=== PATIENT | female | born 1940 | race Caucasian/White ===

== ENCOUNTER → 2016-09-15 | Outpatient (CLI) | payer OTHER, MEDICARE ==
[~2016-09-15] MED LIST: ACET-1256 PO; ASPEC81 PO; ASPI-461 PO; ATOR10TA88 PO; CALC500C3 PO; CALC500C50 PO; CALCCAP17 PO; CETI10TA84 PO; CHOL100027 PO; CLTP PO; CPRDOTS OT; CPRDXOT OT; CYCL10TA6 PO; EPP3 IM; EPP3/2 SQ; FLNIN NAE; FLUT0.15 NAE; FLV1 PO; FOLI800T PO; FOLIC ACID PO; HYDR-5688 PO; LACT3000 PO; LEFL10TA PO; LORA-741 PO; MELA3TAB12 PO; METH2.5T PO; METH500T3 PO; METHPOW7 PO; METO50TA7 PO; MOML PO; MULT-506 PO; MULT-513 PO; OMEG-21 PO; OMEG120013 PO; PANT1TAB48 PO; POLY1SOL6 OP; PRED-301 PO; RXC5 PO; SENN-61 PO; TRAM-10 PO
[2016-09-15 09:04] LABS: BASO % 0.2 %; BASO ABS # 0.01 K/uL (0-0.2); COMPLETE YES; EOS % 1.9 %; HEMATOCRIT 40.1 % (37-47); IG% 0.3 %; LYMPH % 29.6 %; LYMPH ABS # 1.72 K/uL (1.2-3.4); MEAN CELL VOLUME 93.5 fL (80-100); MEAN CORPUSCULAR HGB CONC 33.2 g/dl (32-36); MEAN PLATELET VOLUME 10.7 fL (7.4-10.4); MONO % 9.5 %; NEUT % 58.5 %; PLATELET COUNT 192 K/uL (130-400); RED BLOOD COUNT 4.29 M/uL (4.2-5.4); WHITE BLOOD COUNT 5.82 K/uL (4.8-10.8)
[2016-09-15 09:11] LABS: ALT/SGPT 24 U/L (12-78); CREATININE 0.78 mg/dl (0.60-1.20)
[2016-09-15 09:14] LABS: ALKALINE PHOSPHATASE 70 U/L (45-117); AST/SGOT 25 U/L (15-37)
== END | disposition home or self-care (01) ==
LOC: C.LABOAKS 08:50
PROVIDERS: ATTEND Internal Medicine Rheumatology
DX: Z79.899 Other long term (current) drug therapy (principal); Z51.81 Encounter for therapeutic drug level monitoring

== ENCOUNTER → 2016-11-10 | Outpatient (CLI) | payer OTHER, MEDICARE ==
[~2016-11-10] MED LIST changes: +ATOR10TA82 PO; -ATOR10TA88 PO
[2016-11-10 13:14] LABS: BASO % 0.2 %; BASO ABS # 0.01 K/uL (0-0.2); COMPLETE YES; EOS % 1.9 %; HEMATOCRIT 39.6 % (37-47); LYMPH % 39.7 %; LYMPH ABS # 1.67 K/uL (1.2-3.4); MEAN CELL VOLUME 94.3 fL (80-100); MEAN CORPUSCULAR HEMOGLOBIN 31.2 pg (25-34); MEAN CORPUSCULAR HGB CONC 33.1 g/dl (32-36); MEAN PLATELET VOLUME 11.1 fL (7.4-10.4); NEUT % 48.2 %; PLATELET COUNT 143 K/uL (130-400); WHITE BLOOD COUNT 4.21 K/uL (4.8-10.8)
[2016-11-10 13:28] LABS: ALT/SGPT 31 U/L (12-78); CREATININE 0.82 mg/dl (0.60-1.20)
[2016-11-10 13:31] LABS: ALKALINE PHOSPHATASE 69 U/L (45-117); AST/SGOT 34 U/L (15-37)
== END | disposition home or self-care (01) ==
LOC: C.LABOAKS 14:47
PROVIDERS: ATTEND Internal Medicine Rheumatology
DX: M06.9 Rheumatoid arthritis, unspecified (principal); M81.0 Age-related osteoporosis without current pathological fracture; Z79.899 Other long term (current) drug therapy

== ENCOUNTER → 2016-12-17 | Outpatient (CLI) | payer OTHER, MEDICARE ==
--- NOTE | 2016-12-17 11:56 | DIAGNOSTIC IMAGING REPORT ---
LEFT HIP UNILATERAL 2 VIEWS CLINICAL HISTORY: Left hip pain. Rheumatoid arthritis. COMPARISON: None. DISCUSSION: No fractures or dislocations are visualized. The joint space appears well-preserved for age. There are no erosive or destructive changes. There are vascular calcifications present. There are multiple sectional calcifications visualized in the soft tissues adjacent to the greater trochanter. IMPRESSION: No fractures or dislocations identified. No destructive lesions. The joint space appears well-preserved for age Electronically signed by: Abhay Mejia M.D. 12/17/2016 11:54 AM Dictated Date/Time: 12/17/2016 11:54 AM
== END | disposition home or self-care (01) ==
LOC: C.RAD1850 11:35
PROVIDERS: ATTEND Internal Medicine Rheumatology
DX: M06.9 Rheumatoid arthritis, unspecified (principal); M25.552 Pain in left hip; M81.0 Age-related osteoporosis without current pathological fracture; Z79.899 Other long term (current) drug therapy

== ENCOUNTER → 2017-01-05 | Outpatient (CLI) | payer OTHER, MEDICARE ==
[~2017-01-05] MED LIST changes: -ATOR10TA82 PO; +ATOR10TA88 PO
[2017-01-05 12:20] LABS: BASO % 0.2 %; BASO ABS # 0.01 K/uL (0-0.2); COMPLETE YES; IG% 0.2 %; LYMPH % 34.8 %; LYMPH ABS # 2.08 K/uL (1.2-3.4); MEAN CELL VOLUME 97.9 fL (80-100); MEAN CORPUSCULAR HEMOGLOBIN 31.2 pg (25-34); MEAN CORPUSCULAR HGB CONC 31.9 g/dl (32-36); MEAN PLATELET VOLUME 10.7 fL (7.4-10.4); MONO % 8.5 %; NEUT % 54.3 %; PLATELET COUNT 159 K/uL (130-400); RED BLOOD COUNT 4.29 M/uL (4.2-5.4); WHITE BLOOD COUNT 5.98 K/uL (4.8-10.8)
[2017-01-05 13:08] LABS: ALT/SGPT 28 U/L (12-78); CREATININE 0.82 mg/dl (0.60-1.20)
[2017-01-05 13:11] LABS: ALKALINE PHOSPHATASE 64 U/L (45-117); AST/SGOT 29 U/L (15-37)
--- NOTE | 2017-01-29 06:32 | CODING QUERY NO DIAGNOSIS ---
TREATMENT RENDERED WITHOUT A DIAGNOSIS To promote full compliance with coding requirements relating to patient care, physician participation is requested in all cases of loading supervisor uncertainty. Please assist us with providing a diagnosis/symptom for the test(s) below: A diagnosis/symptom was not documented on your Order. A valid diagnosis/symptom is required to bill all insurances. Please remember that we are unable to code a diagnosis of rule out, probable, possible, questionable, or suspected. Tests that require a diagnosis: ROUTINE VENIPUNCTURE CBC WITH AUTO DIFF LIVER PROFILE Provider Signature: Date: Thank you Diane [facility] [employer] Once completed, please kindly fax back to [phone] For questions please call [phone]
== END | disposition home or self-care (01) ==
LOC: C.LABOAKS 10:32
PROVIDERS: ATTEND Internal Medicine Rheumatology
DX: M06.9 Rheumatoid arthritis, unspecified (principal); Z79.899 Other long term (current) drug therapy

== ENCOUNTER 2017-02-27 06:37 | Emergency (ER) | payer OTHER, MEDICARE ==
[~2017-02-27] VITALS: Ht 157.5 cm; Wt 49.0 kg
[~2017-02-27 06:37] MED LIST changes: -ASPI-461 PO; -CALC500C50 PO; -CALCCAP17 PO; -CPRDOTS OT; -EPP3/2 SQ; -FLUT0.15 NAE; -FLV1 PO; -FOLI800T PO; -HYDR-5688 PO; -LEFL10TA PO; -METH500T3 PO; -MULT-513 PO; -OMEG120013 PO; -RXC5 PO; -SENN-61 PO; -TRAM-10 PO
[2017-02-27 06:41] VITALS: TEMP 36.5; Ht 157.5 cm; Wt 49.0 kg
[2017-02-27] MEDS ORDERED: OMEG120013 PO (07:06)
[2017-02-27] MEDS ORDERED: FLUT0.15 NAE (07:06)
[2017-02-27] MEDS ORDERED: MULT-513 PO (07:06)
[2017-02-27] MEDS ORDERED: CALCCAP17 PO (07:06)
[2017-02-27] MEDS ORDERED: FOLI800T PO (07:06)
[2017-02-27] MEDS ORDERED: CPRDOTS OT (07:06)
[2017-02-27] MEDS ORDERED: ASPI-461 PO (07:06)
[2017-02-27] MEDS ORDERED: EPP3/2 SQ (07:06)
[2017-02-27] MEDS ORDERED: ONDANSETRON INJ 2 MG/ML 2 ML VIAL IV STA (07:15)
[2017-02-27] MEDS ORDERED: FENTANYL CITRATE INJ 50 MCG/1 ML 2 ML VIAL IV STA (07:15)
[2017-02-27] MEDS ORDERED: SODIUM CHLORIDE 0.9% 1000ML 1,000 ML IV STA (07:15)
--- NOTE | 2017-02-27 07:21 | EMERGENCY ROOM VISIT NOTE ---
History Report prepared by Azam: Ayanna Fraser Under the Supervision of: Dr. Karla Zamarripa M.D. First contact with patient: 06:59 Chief Complaint: BACK PAIN Stated Complaint: BACK PAIN History of Present Illness The patient is a 76 year old female who presents to the Emergency Room with complaints of persistent, back pain that worsened over the past week. She currently rates her discomfort as an 8/10 in severity. The patient states that she is scheduled to have back surgery on March [address] Fernandes. She states that over the past week she had x-rays done at [facility] and at the hospital. The patient states that her pain has worsened and has noted difficulty ambulating due to the pain. She states that she was prescribed a muscle relaxer that has only slightly alleviated her discomfort. The patient states that she has additionally tried Tramadol, but states that her head felt funny after taking the medication. She additionally reports that for the past week she has noticed left lower quadrant abdominal pain that is intermittently sharp. The patient states that she has been constipated. She reports a history of diverticulitis. The patient denies any fever, vomiting, or diarrhea. She states that she has intermittently felt nauseous with her pain. Source of History: patient Onset: past week Position: back Symptom Intensity: 8/10 Timing: worsening, other (persistent) Associated Symptoms: + nausea, + abdominal pain, No fevers, No vomiting, No diarrhea Note: Associated Symptoms: constipation Review of Systems See HPI for pertinent positives & negatives. A total of 10 systems reviewed and were otherwise negative. Past Medical & Surgical Medical Problems: (1) Carpal Tunnel Syndrome (2) Hypertension Nos (3) IBS (irritable bowel syndrome) (4) Irritable Bowel Syndrome (5) Mitral valve prolapse (6) Osteoporosis Nos (7) PNA (pneumonia) (8) Sepsis Surgical Problems: (1) History of appendectomy Family History Diabetes mellitus Heart disease Hypertension Social History Smoking Status: Never Smoker Alcohol Use: none Drug Use: none Marital Status: Housing Status: lives with significant other Occupation Status: retired Current/Historical Medications Scheduled Aspirin (Aspirin), 81 MG PO DAILY Atorvastatin (Lipitor), 10 MG PO QPM Calcium Carbonate (Tums), 1 TAB PO PRN Calcium Carbonate-Vitamin D (Calcium/Vitamin D), 1 CAP PO BID Cetirizine (Zyrtec), 10 MG PO QPM Cholecalciferol (Vitamin D 1000 Unit), 1,000 INTER.UNIT PO QAM Ciprofloxacin/Dexamethasone (Ciprodex 0.3-0.1 %), 4 DROPS OT BID Cyclobenzaprine Hcl (Flexeril), 10 MG PO TID Fluticasone Propionate (Nasal) (Flonase Allergy Relief), 2 SPRAYS SAKINA DAILY Folic Acid (Folic Acid), 1,600 MCG PO 6XWK Magnesium Hydroxide (Milk Of Magnesia), 30 ML PO PRN Melatonin-Pyridoxine (Melatonin), 2 TABLET PO HS Methotrexate (Methotrexate), 6 TABLETS PO WK Methylcellulose (Laxative) (Citrucel Fiber Laxative), 1 DOSE PO DAILY Metoprolol Succ (Toprol Xl) (Toprol-Xl), 100 MG PO DAILY Multivitamins/Minerals (Mvi With Minerals), 1 TAB PO DAILY [place]-3 Fatty Acids (Fish Oil), 1,200 MG PO DAILY Pantoprazole (Protonix), 40 MG PO QAM Polyethylene Glycol-Propylene (Systane Ultra), 1 DROPS OP QAM Prednisone (Prednisone), 5 MG PO QAM Scheduled PRN Acetaminophen (Tylenol), 1,000 MG PO TID PRN for Pain Epinephrine (Epipen 2-Juliocesar), SQ for ALLERGIC REACTION Hydrocodone/Acetaminophen 5MG/325MG ([place] 5MG/325MG), 0.5-1 TABLET PO Q6 PRN for Pain Lorazepam (Ativan), 0.5 MG PO TID PRN for Anxiety/Agitation Senna (Senokot), 1 TAB PO BID PRN for Constipation Allergies Coded Allergies: BEE STING (Verified Allergy, Intermediate, BEE/WASP-NAUSEA AND DIZZINESS, 02/27/17) Penicillins (Verified Allergy, Intermediate, RASH (PER PT, WAS A LONG TIME AGO)AMOXICILLIN AND PCN, 02/27/17) Esomeprazole (Verified Allergy, Mild, NAUSEA VOMITING, 02/27/17) Antipyrine (Verified Allergy, Unknown, RASH AND BLISTERS, 02/27/17) Benzocaine (Verified Allergy, Unknown, UNKNOWN, 02/27/17) Hydroxychloroquine (Verified Allergy, Unknown, UNKNOWN, 02/27/17) Misoprostol (Verified Allergy, Unknown, UNKNOWN, 02/27/17) Phenylephrine (Verified Allergy, Unknown, UNKNOWN, 02/27/17) Pseudoephedrine (Verified Allergy, Unknown, UNKNOWN, 02/27/17) Serotonin Reuptake Inhibitors (Verified Allergy, Unknown, UNKNOWN, 02/27/17 ) Sulfa Antibiotics (Verified Allergy, Unknown, UNKNOWN, 02/27/17) Tramadol (Verified Allergy, Unknown, TONGUE TINGLING, HEAD FELT LIKE IT WOULD EXPLODE, 02/27/17) Citalopram (Verified Adverse Reaction, Mild, GI UPSET, 02/27/17) Clarithromycin (Verified Adverse Reaction, Mild, GI UPSET, 02/27/17) Physical Exam Vital Signs Date Time Temp Pulse Resp B/P (MAP) Pulse Ox O2 Delivery O2 Flow Rate FiO2 02/27/17 10:53 75 18 178/74 97 02/27/17 10:22 78 18 189/80 97 Room Air 02/27/17 08:40 78 18 131/77 99 Room Air 02/27/17 06:41 36.5 82 18 141/76 99 Room Air Physical Exam Vital signs reviewed. General: Well-appearing female, in no significant distress. HEENT: No scleral icterus, PERRLA, neck supple. Atraumatic. Cardiovascular: Systolic ejection murmur. Regular rate and rhythm. Pulmonary: Clear to auscultation bilaterally, normal work of breathing. Abdomen: Soft, mild tenderness to the left lower quadrant, nondistended, positive bowel sounds. Musculoskeletal: Atraumatic, no peripheral edema. No CVA tenderness. Neurologic: Patient awake alert and oriented x 3, full strength in all 4 extremities. Cranial nerves 2 through 12 grossly intact. Skin: Warm, dry, no rash Medical Decision & Procedures ER Provider Diagnostic Interpretation: CT results as stated below per my review and radiologist interpretation: CT OF THE ABDOMEN AND PELVIS WITH CONTRAST CLINICAL HISTORY: Left lower quadrant abdominal pain. COMPARISON STUDY: CT of the abdomen and pelvis October 09, 2013. TECHNIQUE: Following IV administration of 93 mL of Optiray-320, axial images of the abdomen and pelvis were obtained from the lung bases to the proximal femurs. Images were reviewed in the axial, sagittal, and coronal planes. IV contrast was administered without complication. A dose lowering technique was utilized adhering to the principles of ALARA. CT DOSE: 246.21 mGycm FINDINGS: Pectus excavatum deformity is noted. Heart is mildly enlarged. The liver, spleen, adrenal glands, kidneys and pancreas are unremarkable. There is no biliary or pancreatic ductal dilatation. There is no evidence for a bowel obstruction. There is a large amount of stool within the colon and rectum. A small fat-containing umbilical hernia is present. There is sigmoid diverticulosis without evidence for acute diverticulitis. There is prominent enhancement and bulbous enlargement of the uterine fundus. The appendix is not visualized. There is no ascites, lymphadenopathy or abscess. Note is made of moderate levoscoliosis of the lumbar spine. There is a fracture of the superior endplate of L4 with mild loss of vertebral body height and 4 mm of retropulsion. This fracture is likely acute to subacute and extends to the anterior aspect of the left pedicle of L4. Note is made of mild prevertebral infiltration. There is a Schmorl's node involving the left aspect of the superior endplate of L5. This is probably subacute to chronic. Multilevel degenerative disc disease and facet arthrosis is present. Central canal and neural foramen are suboptimally assessed by CT. IMPRESSION: 1. Large amount of stool within the colon and rectum. 2. Sigmoid diverticulosis without evidence for acute diverticulitis. 3. Acute to subacute compression fracture of the superior endplate of L4 which extends to the anterior aspect of the left L4 pedicle. Mild loss of vertebral body height and 4 mm of retropulsion. Moderate levoscoliosis of the lumbar spine with moderate to severe multilevel degenerative disc disease and facet arthrosis which is suboptimally assessed by CT. 4. Prominent enhancement with bulbous enlargement of the uterine fundus. While nonspecific, this may reflect fibroids. A follow-up nonemergent pelvic ultrasound could be obtained. Electronically signed by: Francois Robbins M.D. 02/27/2017 8:51 AM Dictated Date/Time: 02/27/2017 8:33 AM Laboratory Results 02/27/17 07:30 Red Blood Count 4.19, Mean Corpuscular Volume 96.7, Mean Corpuscular Hemoglobin 32.2, Mean Corpuscular Hemoglobin Concent 33.3, Mean Platelet Volume 9.9, Neutrophils (%) (Auto) 74.8, Lymphocytes (%) (Auto) 11.9, Monocytes (%) (Auto) 12.1, Eosinophils (%) (Auto) 0.9, Basophils (%) (Auto) 0.1, Neutrophils # (Auto ) 6.42, Lymphocytes # (Auto) 1.02, Monocytes # (Auto) 1.04, Eosinophils # (Auto ) 0.08, Basophils # (Auto) 0.01 02/27/17 07:30 Test 02/27/17 07:30 02/27/17 07:50 White Blood Count 8.59 K/uL (4.8-10.8) Red Blood Count 4.19 M/uL (4.2-5.4) Hemoglobin 13.5 g/dL (12.0-16.0) Hematocrit 40.5 % (37-47) Mean Corpuscular Volume 96.7 fL (80-100) Mean Corpuscular Hemoglobin 32.2 pg (25-34) Mean Corpuscular Hemoglobin Concent 33.3 g/dl (32-36) Platelet Count 177 K/uL (130-400) Mean Platelet Volume 9.9 fL (7.4-10.4) Neutrophils (%) (Auto) 74.8 % Lymphocytes (%) (Auto) 11.9 % Monocytes (%) (Auto) 12.1 % Eosinophils (%) (Auto) 0.9 % Basophils (%) (Auto) 0.1 % Neutrophils # (Auto) 6.42 K/uL (1.4-6.5) Lymphocytes # (Auto) 1.02 K/uL (1.2-3.4) Monocytes # (Auto) 1.04 K/uL (0.11-0.59) Eosinophils # (Auto) 0.08 K/uL (0-0.5) Basophils # (Auto) 0.01 K/uL (0-0.2) RDW Standard Deviation 48.9 fL (36.4-46.3) RDW Coefficient of Variation 14.0 % (11.5-14.5) Immature Granulocyte % (Auto) 0.2 % Immature Granulocyte # (Auto) 0.02 K/uL (0.00-0.02) Anion Gap 4.0 mmol/L (3-11) Est Creatinine Clear Calc Drug Dose 51.5 ml/min Estimated GFR () 93.4 Estimated GFR (Non- 80.6 BUN/Creatinine Ratio 13.4 (10-20) Calcium Level 9.2 mg/dl (8.5-10.1) Magnesium Level 2.3 mg/dl (1.8-2.4) Total Bilirubin 0.6 mg/dl (0.2-1) Direct Bilirubin 0.2 mg/dl (0-0.2) Aspartate Amino Transf (AST/SGOT) 18 U/L (15-37) Alanine Aminotransferase (ALT/SGPT) 25 U/L (12-78) Alkaline Phosphatase 86 U/L (45-117) Total Protein 6.5 gm/dl (6.4-8.2) Albumin 3.5 gm/dl (3.4-5.0) Lipase 173 U/L (73-393) Urine Color YELLOW Urine Appearance CLEAR (CLEAR) Urine pH 8.0 (4.5-7.5) Urine Specific [place] 1.016 (1.000-1.030) Urine Protein NEG (NEG) Urine Glucose (UA) NEG (NEG) Urine Ketones NEG (NEG) Urine Occult Blood TRACE (NEG) Urine Nitrite NEG (NEG) Urine Bilirubin NEG (NEG) Urine Urobilinogen NEG (NEG) Urine Leukocyte Esterase SMALL (NEG) Urine WBC (Auto) 1-5 /hpf (0-5) Urine RBC (Auto) 0-4 /hpf (0-4) Urine Hyaline Casts (Auto) 1-5 /lpf (0-5) Urine Epithelial Cells (Auto) 5-10 /lpf (0-5) Urine Bacteria (Auto) NEG (NEG) Laboratory results per my review. Medications Administered Medications (Trade) Dose Ordered Sig/Taylor Route Start Time Stop Time Status Last Admin Dose Admin Sodium Chloride 1,000 ml @ 125 mls/hr Q8H STAT IV 02/27/17 07:15 02/27/17 11:18 DC 02/27/17 07:43 125 MLS/HR Fentanyl Citrate (Fentanyl Inj) 25 mcg NOW STAT IV 02/27/17 07:15 02/27/17 07:21 DC 02/27/17 07:41 25 MCG Ondansetron HCl (Zofran Inj) 4 mg NOW STAT IV 02/27/17 07:15 02/27/17 07:21 DC 02/27/17 07:40 4 MG Miscellaneous (Soap Suds Enema) 1 ea NOW STAT HI 02/27/17 08:51 02/27/17 08:52 DC 02/27/17 09:30 1 ED Course 0713: Past medical records reviewed. The patient was evaluated in room B10. A complete history and physical examination was performed. 0715: Ordered Zofran Inj 4 mg IV, Fentanyl Inj 25 mcg IV, Sodium Chloride 1000 ml @ 125 mls/hr IV. 0851: Ordered Soap Suds Enema 1 ea HI. 0912: I reevaluated the patient and she is resting comfortably. I discussed the exam findings with her. She is going to have an enema. 0951: I reevaluated the patient and nursing staff states that they disimpacted the patient. 1025: Per nursing staff the patient had a large bowel movement and is feeling better. She is in agreement with the treatment plan and is ready for discharge. Medical Decision The patient is a 76 year old female who presents to the ED with complaints of back pain. Differentials include diverticulitis, lumbar radiculopathy, kidney stone, UTI, pyelonephritis, muscular strain. This patient was evaluated and appeared to be in no significant distress. Physical examination reveals no acute peritonitis. IV access was obtained and laboratory work was drawn. The patient was hydrated with normal saline solution , given IV fentanyl and Zofran. CT scan abdomen and pelvis was performed and reveals a new lumbar compression fracture. Patient has evidence of significant fecal retention. Soapsuds enema was administered with good result. The patient was given a prescription for Percocet as she says her Ultram is not working. She may use one half to one tablet every 6 hours as needed. She was also given a prescription for senna for constipation. The patient will follow- up with her primary care provider this week for reevaluation and return to the ER for worsening of symptoms or any medical concerns. Medication Reconcilliation Current Medication List: was personally reviewed by me Blood Pressure Screening Patient's blood pressure: Elevated blood pressure Blood pressure disposition: Elevated BP felt to be situational, Did not require urgent referral Impression Primary Impression: Constipation Additional Impression: Lumbar compression fracture Scribe Attestation The scribe's documentation has been prepared under my direction and personally reviewed by me in its entirety. I confirm that the note above accurately reflects all work, treatment, procedures, and medical decision making performed by me. Departure Information Dispostion Home / Self-Care Prescriptions Hydrocodone/Acetaminophen 5MG/325MG ([place] 5MG/325MG) Tab 0.5-1 TABLET PO Q6 Y for Pain, #20 TAB Prov: Karla Zamarripa M.D. 02/27/17 Senna (Senokot) 8.6 Mg Tab 1 TAB PO BID Y for Constipation, #60 TAB Prov: Karla Zamarripa M.D. 02/27/17 Referrals Aaron Wolf M.D. (PCP) Forms HOME CARE DOCUMENTATION FORM, IMPORTANT VISIT INFORMATION Patient Instructions My [facility] Additional Instructions Diagnosis: Lumbar compression fracture, constipation You have a reasonably new compression fracture of the L4 vertebrae. Please contact Dr. Fernandes's office for reevaluation. [place] one half to one tablet every 6 hours as needed for severe pain. Do not drive or take Tylenol with this medication. Senokot 1 tab twice daily. Follow-up with your physician this week. Return to the ER for worsening of symptoms or any medical concerns. Problem Qualifiers
[2017-02-27] MEDS ORDERED: OPTIRAY 320 IV PRN (07:30)
[2017-02-27 07:41] LABS: BASO % 0.1 %; BASO ABS # 0.01 K/uL (0-0.2); COMPLETE YES; EOS % 0.9 %; HEMATOCRIT 40.5 % (37-47); IG% 0.2 %; LYMPH % 11.9 %; LYMPH ABS # 1.02 K/uL (1.2-3.4); MEAN CELL VOLUME 96.7 fL (80-100); MEAN CORPUSCULAR HEMOGLOBIN 32.2 pg (25-34); MEAN CORPUSCULAR HGB CONC 33.3 g/dl (32-36); MEAN PLATELET VOLUME 9.9 fL (7.4-10.4); MONO % 12.1 %; NEUT % 74.8 %; PLATELET COUNT 177 K/uL (130-400); RED BLOOD COUNT 4.19 M/uL (4.2-5.4); WHITE BLOOD COUNT 8.59 K/uL (4.8-10.8)
[2017-02-27 07:58] LABS: BUN/CREATININE RATIO 13.4 (10-20); CALCIUM 9.2 mg/dl (8.5-10.1); CREATININE 0.73 mg/dl (0.60-1.20); MAGNESIUM 2.3 mg/dl (1.8-2.4); POTASSIUM 3.8 mmol/L (3.5-5.1)
[2017-02-27 08:02] LABS: URINE APPEARANCE CLEAR (CLEAR); URINE BILIRUBIN NEG (NEG); URINE COLOR YELLOW; URINE NITRITE NEG (NEG); URINE SPECIFIC GRAVITY 1.016 (1.000-1.030); UROBILINOGEN NEG (NEG); ZZUR CULT IF INDIC CLEAN CATCH NO
[2017-02-27 08:15] LABS: MANUAL MICROSCOPIC REQUIRED? NO; REVIEW REQ? NO
[2017-02-27] MEDS ORDERED: SOAP SUDS ENEMA PR STA (08:51)
--- NOTE | 2017-02-27 08:52 | DIAGNOSTIC IMAGING REPORT ---
CT OF THE ABDOMEN AND PELVIS WITH CONTRAST CLINICAL HISTORY: Left lower quadrant abdominal pain. COMPARISON STUDY: CT of the abdomen and pelvis October 09, 2013. TECHNIQUE: Following IV administration of 93 mL of Optiray-320, axial images of the abdomen and pelvis were obtained from the lung bases to the proximal femurs. Images were reviewed in the axial, sagittal, and coronal planes. IV contrast was administered without complication. A dose lowering technique was utilized adhering to the principles of ALARA. CT DOSE: 246.21 mGycm FINDINGS: Pectus excavatum deformity is noted. Heart is mildly enlarged. The liver, spleen, adrenal glands, kidneys and pancreas are unremarkable. There is no biliary or pancreatic ductal dilatation. There is no evidence for a bowel obstruction. There is a large amount of stool within the colon and rectum. A small fat-containing umbilical hernia is present. There is sigmoid diverticulosis without evidence for acute diverticulitis. There is prominent enhancement and bulbous enlargement of the uterine fundus. The appendix is not visualized. There is no ascites, lymphadenopathy or abscess. Note is made of moderate levoscoliosis of the lumbar spine. There is a fracture of the superior endplate of L4 with mild loss of vertebral body height and 4 mm of retropulsion. This fracture is likely acute to subacute and extends to the anterior aspect of the left pedicle of L4. Note is made of mild prevertebral infiltration. There is a Schmorl's node involving the left aspect of the superior endplate of L5. This is probably subacute to chronic. Multilevel degenerative disc disease and facet arthrosis is present. Central canal and neural foramen are suboptimally assessed by CT. IMPRESSION: 1. Large amount of stool within the colon and rectum. 2. Sigmoid diverticulosis without evidence for acute diverticulitis. 3. Acute to subacute compression fracture of the superior endplate of L4 which extends to the anterior aspect of the left L4 pedicle. Mild loss of vertebral body height and 4 mm of retropulsion. Moderate levoscoliosis of the lumbar spine with moderate to severe multilevel degenerative disc disease and facet arthrosis which is suboptimally assessed by CT. 4. Prominent enhancement with bulbous enlargement of the uterine fundus. While nonspecific, this may reflect fibroids. A follow-up nonemergent pelvic ultrasound could be obtained. Electronically signed by: Francois Robbins M.D. 02/27/2017 8:51 AM Dictated Date/Time: 02/27/2017 8:33 AM
[2017-02-27] MEDS ORDERED: SENN-61 PO (10:33)
[2017-02-27] MEDS ORDERED: HYDR-5688 PO (10:34)
[2017-02-27 10:53] VITALS: BP 178/74; PULSE 75; O2SAT 97
[2017-03-18] MEDS ORDERED: TRAM-10 PO (17:14)
[2017-03-18] MEDS ORDERED: SENN-61 PO (17:14)
[2017-03-31] MEDS ORDERED: RXC5 PO (07:37)
== END 2017-02-27 10:54 | disposition home or self-care (01) ==
LOC: C.EDB 06:39
DX: K59.00 Constipation, unspecified (principal); S32.000A Wedge compression fracture of unspecified lumbar vertebra, initial encounter for closed fracture; K58.9 Irritable bowel syndrome, unspecified; I10 Essential (primary) hypertension; Z87.01 Personal history of pneumonia (recurrent); Z83.3 Family history of diabetes mellitus; Z82.49 Family history of ischemic heart disease and other diseases of the circulatory system; Z79.82 Long term (current) use of aspirin; Z79.899 Other long term (current) drug therapy

== ENCOUNTER 2017-03-05 07:54 | Emergency (ER) | payer OTHER, MEDICARE ==
[~2017-03-05 07:54] MED LIST changes: -ASPEC81 PO; +ASPI-461 PO; +CALCCAP17 PO; -CLTP PO; +CPRDOTS OT; -CPRDXOT OT; -EPP3 IM; +EPP3/2 SQ; -FLNIN NAE; +FLUT0.15 NAE; +FOLI800T PO; -FOLIC ACID PO; +HYDR-5688 PO; -LACT3000 PO; -MULT-506 PO; +MULT-513 PO; -OMEG-21 PO; +OMEG120013 PO; +SENN-61 PO
[2017-03-05 07:58] VITALS: TEMP 36.8
[2017-03-05] MEDS ORDERED: SOAP SUDS ENEMA PR STA ×2 (08:16→10:41)
--- NOTE | 2017-03-05 10:31 | DIAGNOSTIC IMAGING REPORT ---
TERENCE CLINICAL HISTORY: 76 years-old Female presenting with constipation. TECHNIQUE: Single supine view of the abdomen was obtained. COMPARISON: 03/05/2017. FINDINGS: Dense stool noted in the left colon. Moderate stool burden noted also in the right colon. Nonobstructive bowel gas pattern. No gross free intraperitoneal gas. S-shaped scoliotic curvature of the thoracolumbar spine. Multiple calcifications projecting over the gluteus muscles, possibly injection granulomas. IMPRESSION: 1. Moderate stool burden, which could be compatible with constipation. No obstruction. Electronically signed by: Aaron Rainey M.D. 03/05/2017 10:30 AM Dictated Date/Time: 03/05/2017 10:23 AM
--- NOTE | 2017-03-05 11:22 | EMERGENCY ROOM VISIT NOTE ---
History First contact with patient: 08:07 Chief Complaint: CONSTIPATION Stated Complaint: LEFT LEG PAIN, CONSTIPATION History of Present Illness The patient is a 76 year old female who presents to the Emergency Room with complaints of constipation. The patient was seen here in the emergency room on Wednesday for the same symptoms. The patient was given a soapsuds enema with relief. She was instructed to take senna as directed. The patient has been compliant states she has not had a bowel movement since she left ER on Wednesday. The patient is currently on [place] for back pain and is having surgery on her back by Dr. Fernandes later this month. The patient states that she feels slightly nauseated but denies any vomiting. The patient denies any abdominal pain. Review of Systems 10 system review was performed and was negative unless stated otherwise history of present illness. Past Medical/Surgical History Medical Problems: (1) Carpal Tunnel Syndrome (2) Hypertension Nos (3) IBS (irritable bowel syndrome) (4) Irritable Bowel Syndrome (5) Mitral valve prolapse (6) Osteoporosis Nos (7) PNA (pneumonia) (8) Sepsis Surgical Problems: (1) History of appendectomy Family History Diabetes mellitus Heart disease Hypertension Social History Smoking Status: Never Smoker Alcohol Use: none Drug Use: none Marital Status: Housing Status: lives with significant other Occupation Status: retired Current/Historical Medications Scheduled Aspirin (Aspirin), 81 MG PO DAILY Atorvastatin (Lipitor), 10 MG PO QPM Calcium Carbonate-Vitamin D (Calcium/Vitamin D), 1 CAP PO BID Cetirizine (Zyrtec), 10 MG PO QPM Cholecalciferol (Vitamin D 1000 Unit), 1,000 INTER.UNIT PO QAM Cyclobenzaprine Hcl (Flexeril), 10 MG PO TID Fluticasone Propionate (Nasal) (Flonase Allergy Relief), 2 SPRAYS SAKINA DAILY Folic Acid (Folic Acid), 1,600 MCG PO 6XWK Melatonin-Pyridoxine (Melatonin), 1.5 TABLET PO HS Methotrexate (Methotrexate), 6 TABLETS PO WK Methylcellulose (Laxative) (Citrucel Fiber Laxative), 1 DOSE PO DAILY Metoprolol Succ (Toprol Xl) (Toprol-Xl), 100 MG PO DAILY Multivitamins/Minerals (Mvi With Minerals), 1 TAB PO DAILY [place]-3 Fatty Acids (Fish Oil), 1,200 MG PO DAILY Pantoprazole (Protonix), 40 MG PO QAM Polyethylene Glycol-Propylene (Systane Ultra), 1 DROPS OP QAM Prednisone (Prednisone), 5 MG PO QAM Scheduled PRN Acetaminophen (Tylenol), 1,000 MG PO TID PRN for Pain Epinephrine (Epipen 2-Juliocesar), SQ for ALLERGIC REACTION Hydrocodone/Acetaminophen 5MG/325MG ([place] 5MG/325MG), 0.5-1 TABLET PO Q6 PRN for Pain Lorazepam (Ativan), 0.5 MG PO TID PRN for Anxiety/Agitation Senna (Senokot), 1 TAB PO BID PRN for Constipation Physical Exam Vital Signs Date Time Temp Pulse Resp B/P (MAP) Pulse Ox O2 Delivery O2 Flow Rate FiO2 03/05/17 11:04 78 159/84 97 Room Air 03/05/17 07:58 36.8 93 20 106/96 95 Room Air Physical Exam GENERAL: 76-year-old white female appears in no acute distress. MENTAL Status: Alert and oriented 3. MOUTH: Mucosa is moist. NECK: Supple, no lymphadenopathy noted. No carotid bruits noted. LUNGS: Clear auscultation without wheezes rales or rhonchi. CARDIAC: Regular rate and rhythm without murmur. Pulses is full and equal throughout. BACK: No CVA tenderness noted. ABDOMEN: Positive bowel sounds all 4 quadrants. Soft, nontender to palpation without organomegaly or masses. RECTAL: Anal sphincter tone intact. Large amount of hard marblelike stool within the rectum. Medical Decision & Procedures ER Provider Diagnostic Interpretation: KUB CLINICAL HISTORY: 76 years-old Female presenting with constipation. TECHNIQUE: Single supine view of the abdomen was obtained. COMPARISON: 03/05/2017. FINDINGS: Dense stool noted in the left colon. Moderate stool burden noted also in the right colon. Nonobstructive bowel gas pattern. No gross free intraperitoneal gas. S-shaped scoliotic curvature of the thoracolumbar spine. Multiple calcifications projecting over the gluteus muscles, possibly injection granulomas. IMPRESSION: 1. Moderate stool burden, which could be compatible with constipation. No obstruction. Electronically signed by: Aaron Rainey M.D. 03/05/2017 10:30 AM Dictated Date/Time: 03/05/2017 10:23 AM Medications Administered Medications (Trade) Dose Ordered Sig/Taylor Route Start Time Stop Time Status Last Admin Dose Admin Miscellaneous (Soap Suds Enema) 1 ea NOW STAT NV 03/05/17 08:16 03/05/17 08:18 DC 03/05/17 08:16 1 EA Miscellaneous (Soap Suds Enema) 1 ea NOW STAT NV 03/05/17 10:41 03/05/17 10:43 DC 03/05/17 10:41 1 EA ED Course The patient was evaluated. The patient's EMR medication list were reviewed. While performing the rectal exam I tried to 'mash" the stools so that they would be easier to evacuate. The patient was given a soapsuds enema. The patient was having difficulty moving her bowels and therefore Dr. Zamarripa remove some of the hard stools from the rectum. The patient had passed a small amount of stool. A KUB was ordered and she still had a moderate amount of stool in the right and the left colon. A second soapsuds enema was attempted but the patient did not tolerate it well. She only had a very small bowel movement. The patient was apparently evaluated by Dr. Zamarripa who agree with treatment plan. The patient was discharged home in stable condition. Medical Decision Differential diagnosis include constipation, fecal impaction, bowel obstruction or Medication Reconcilliation Current Medication List: was personally reviewed by me Blood Pressure Screening Patient's blood pressure: Elevated blood pressure Blood pressure disposition: Elevated BP felt to be situational Impression Primary Impression: Constipation Additional Impression: Fecal impaction in rectum Departure Information Dispostion Home / Self-Care Condition GOOD Referrals Aaron Wolf M.D. (PCP) Forms HOME CARE DOCUMENTATION FORM, IMPORTANT VISIT INFORMATION Patient Instructions Constipation, My [facility] Additional Instructions Follow high-fiber diet. Avoid dairy products. Recommend taking milk of magnesia as directed on the label. Continue the Senokot. If symptoms persist, return to ER. Problem Qualifiers Primary Impression: Constipation Constipation type: drug induced constipation Qualified Codes: K59.03 - Drug induced constipation
[2017-03-05 11:56] VITALS: BP 142/72; PULSE 62; O2SAT 97
--- NOTE | 2017-03-05 16:09 | EMERGENCY ROOM VISIT NOTE ---
ED Visit Note First contact with patient: 08:07 I have personally seen and evaluated the patient with the PA. I agree with the diagnosis and management decisions and have been personally involved in the case. Upon my evaluation, the patient was having only minimal success with the enema. Rectal exam was performed and a large amount of small pieces of stool were removed. The patient was eventually discharged to care of her . Please see Paola Dorsey PA-C's notes for further details of the history, physical and visit.
[2017-03-18] MEDS ORDERED: SENN-61 PO (17:14)
[2017-03-18] MEDS ORDERED: TRAM-10 PO (17:14)
[2017-03-31] MEDS ORDERED: RXC5 PO (07:37)
== END 2017-03-05 11:57 | disposition home or self-care (01) ==
LOC: C.EDB 07:55
DX: K59.03 Drug induced constipation (principal); K56.41 Fecal impaction; G56.00 Carpal tunnel syndrome, unspecified upper limb; I10 Essential (primary) hypertension; K58.9 Irritable bowel syndrome, unspecified; M81.0 Age-related osteoporosis without current pathological fracture; Z83.3 Family history of diabetes mellitus; Z82.49 Family history of ischemic heart disease and other diseases of the circulatory system; Z79.82 Long term (current) use of aspirin

== ENCOUNTER 2017-03-23 07:34 | Inpatient (IN) | payer OTHER, MEDICARE ==
[2017-02-24 10:53] VITALS: BMI 19.0
--- NOTE | 2017-02-24 11:39 | PAT Medication Instructions ---
Service Date Feb 24, 2017. Current Home Medication List Acetaminophen (Tylenol), 1,000 MG PO TID PRN for Pain Aspirin Enteric Coated (Ecotrin Or Generic *), 81 MG PO QAM Atorvastatin (Lipitor), 10 MG PO QPM Calcium Carbonate (Tums), 1 TAB PO PRN Calcium/Vitamin D (Caltrate 600 Plus *), 1 TAB PO BID Cetirizine (Zyrtec), 10 MG PO QPM Cholecalciferol (Vitamin D 1000 Unit), 1,000 INTER.UNIT PO QAM Ciprofloxacin/Dexamethasone Otic (Ciprodex Otic *), 4 DROPS OT PRN Cyclobenzaprine Hcl (Flexeril), 10 MG PO TID Epinephrine (Epipen *), 0.3 MG IM UD Fluticasone Propionate (Flonase Nasal [place] *), 2 SPRAYS SAKINA QAM Lactase (Lactaid), 1 TAB PO PRN Lorazepam (Ativan), 0.5 MG PO TID PRN for Anxiety/Agitation Magnesium Hydroxide (Milk Of Magnesia), 30 ML PO PRN Melatonin-Pyridoxine (Melatonin), 2 TABLET PO HS Methotrexate (Methotrexate), 6 TABLETS PO WK Methylcellulose (Laxative) (Citrucel Fiber Laxative), 1 DOSE PO DAILY Metoprolol Succ (Toprol Xl) (Toprol-Xl), 1 TAB PO BID Multivitamin (Multivitamin), 1 TAB PO 6XWEEK [place]-3 Fatty Acids (Fish Oil), 1 CAP PO QAM Pantoprazole (Protonix), 40 MG PO QAM Polyethylene Glycol-Propylene (Systane Ultra), 1 DROPS OP QAM Prednisone (Prednisone), 5 MG PO QAM [Folic Acid], 1,600 MCG PO 6XWEEK Medication Instructions For Your Scheduled Surgery Epinephrine (Epipen *), 0.3 MG IM UD (continue as directed) - Check with prescribing physician for instructions: Methotrexate (Methotrexate), 6 TABLETS PO WK - Hold the following medications 2 weeks prior to surgery: [place]-3 Fatty Acids (Fish Oil), 1 CAP PO QAM - Hold the following medications the morning of surgery: [Folic Acid], 1,600 MCG PO 6XWEEK Multivitamin (Multivitamin), 1 TAB PO 6XWEEK Methylcellulose (Laxative) (Citrucel Fiber Laxative), 1 DOSE PO DAILY Magnesium Hydroxide (Milk Of Magnesia), 30 ML PO PRN Lactase (Lactaid), 1 TAB PO PRN Cyclobenzaprine Hcl (Flexeril), 10 MG PO TID Calcium Carbonate (Tums), 1 TAB PO PRN Calcium/Vitamin D (Caltrate 600 Plus *), 1 TAB PO BID Cholecalciferol (Vitamin D 1000 Unit), 1,000 INTER.UNIT PO QAM - Take the following medications the morning of surgery with a sip of water: Prednisone (Prednisone), 5 MG PO QAM Pantoprazole (Protonix), 40 MG PO QAM Polyethylene Glycol-Propylene (Systane Ultra), 1 DROPS OP QAM Metoprolol Succ (Toprol Xl) (Toprol-Xl), 1 TAB PO BID Lorazepam (Ativan), 0.5 MG PO TID PRN for Anxiety/Agitation Fluticasone Propionate (Flonase Nasal [place] *), 2 SPRAYS SAKINA QAM Ciprofloxacin/Dexamethasone Otic (Ciprodex Otic *), 4 DROPS OT PRN (if needed) Acetaminophen (Tylenol), 1,000 MG PO TID PRN for Pain (if needed) Aspirin Enteric Coated (Ecotrin Or Generic *), 81 MG PO QAM (okay to continue per surgeon) - Take the following medications as scheduled the night before surgery: Metoprolol Succ (Toprol Xl) (Toprol-Xl), 1 TAB PO BID Melatonin-Pyridoxine (Melatonin), 2 TABLET PO HS Magnesium Hydroxide (Milk Of Magnesia), 30 ML PO PRN (if needed) Lorazepam (Ativan), 0.5 MG PO TID PRN for Anxiety/Agitation (if needed) Fluticasone Propionate (Flonase Nasal [place] *), 2 SPRAYS SAKINA QAM Cyclobenzaprine Hcl (Flexeril), 10 MG PO TID Ciprofloxacin/Dexamethasone Otic (Ciprodex Otic *), 4 DROPS OT PRN (if needed) Cetirizine (Zyrtec), 10 MG PO QPM Calcium Carbonate (Tums), 1 TAB PO PRN Calcium/Vitamin D (Caltrate 600 Plus *), 1 TAB PO BID Atorvastatin (Lipitor), 10 MG PO QPM Acetaminophen (Tylenol), 1,000 MG PO TID PRN for Pain (if needed) If you have any questions please call us at [phone] or [phone] or [phone]
[2017-02-24 12:36] LABS: BASO % 0.1 %; BASO ABS # 0.01 K/uL (0-0.2); COMPLETE YES; EOS % 0.2 %; HEMATOCRIT 44.7 % (37-47); IG% 0.1 %; LYMPH % 8.3 %; LYMPH ABS # 0.82 K/uL (1.2-3.4); MEAN CELL VOLUME 97.4 fL (80-100); MEAN CORPUSCULAR HGB CONC 32.9 g/dl (32-36); MEAN PLATELET VOLUME 10.5 fL (7.4-10.4); MONO % 6.9 %; NEUT % 84.4 %; PLATELET COUNT 155 K/uL (130-400); RED BLOOD COUNT 4.59 M/uL (4.2-5.4)
--- NOTE | 2017-02-24 12:37 | DIAGNOSTIC IMAGING REPORT ---
CHEST PREADMISSION(PA/LAT) CLINICAL HISTORY: PAT preoperative evaluation COMPARISON STUDY: 07/04/2015 FINDINGS: The bones soft tissues and hemidiaphragms are normal. The cardiomediastinal silhouette is normal. The lungs are clear. The pulmonary vasculature is normal. Mild emphysematous change. Pectus deformity of the chest. IMPRESSION: No acute process. Mild emphysematous change. Pectus deformity of the chest. The above report was generated using voice recognition software. It may contain grammatical, syntax or spelling errors. Electronically signed by: Lamont Dorsey M.D. 02/24/2017 12:36 PM Dictated Date/Time: 02/24/2017 12:35 PM
[2017-02-24 12:39] LABS: URINE APPEARANCE CLOUDY (CLEAR); URINE BILIRUBIN NEG (NEG); URINE COLOR YELLOW; URINE NITRITE NEG (NEG); URINE PH 7.5 (4.5-7.5); URINE SPECIFIC GRAVITY 1.019 (1.000-1.030); UROBILINOGEN NEG (NEG); ZZUR CULT IF INDIC CLEAN CATCH NO
[2017-02-24 12:52] LABS: MANUAL MICROSCOPIC REQUIRED? NO; REVIEW REQ? NO
[2017-02-24 13:09] LABS: CREATININE 0.73 mg/dl (0.60-1.20)
[2017-02-24 13:10] LABS: CALCIUM 9.7 mg/dl (8.5-10.1); POTASSIUM 3.9 mmol/L (3.5-5.1)
--- NOTE | 2017-02-24 13:23 | DIAGNOSTIC IMAGING REPORT ---
CERVICAL SPINE 2 OR 3 VIEWS HISTORY: Preoperative evaluation PREOP, RHEUMATOID ARTHRITIS COMPARISON: None. FINDINGS: The cervical spine is visualized from C1 through the superior endplate of T1. There is no fracture. There is a 2 mm anterolisthesis of C4 on C5. This shows no change in flexion and neutral positions. It is not seen with the patient in extension. Alignment otherwise is unremarkable. There is a 2 mm retrolisthesis of C5 on C6 with the patient in extension. There is no abnormality of the C1-C2 complex. There is considerable degenerative disc change from C5 through C7. There is a slight grade 1 anterolisthesis of C7 on T1 which shows no positional variation. Prevertebral soft tissues and the atlantodens interval are intact. IMPRESSION: 1. Grade 2 anterolisthesis of C4 on C5 which is stable in flexion and neutral positions. It reverts to normal position in extension 2. Grade 1 anterolisthesis of C7 on T1 which shows no positional variation. 3. 2 mm retrolisthesis of C5 on C6 with the patient exclusively in extension. It is not seen in neutral or flexion 4. Considerable degenerative disc change of the low cervical region. The above report was generated using voice recognition software. It may contain grammatical, syntax or spelling errors. Electronically signed by: Lamont Dorsey M.D. 02/24/2017 1:22 PM Dictated Date/Time: 02/24/2017 1:18 PM
--- NOTE | 2017-03-18 16:22 | PAT Medication Instructions ---
Service Date Mar 18, 2017. Current Home Medication List Acetaminophen (Tylenol), 1,000 MG PO TID PRN for Pain Aspirin (Aspirin), 81 MG PO DAILY Atorvastatin (Lipitor), 10 MG PO QPM Calcium Carbonate-Vitamin D (Calcium/Vitamin D), 1 CAP PO BID Cetirizine (Zyrtec), 10 MG PO QPM Cholecalciferol (Vitamin D 1000 Unit), 1,000 INTER.UNIT PO QAM Cyclobenzaprine Hcl (Flexeril), 10 MG PO TID Epinephrine (Epipen 2-Juliocesar), SQ for ALLERGIC REACTION Fluticasone Propionate (Nasal) (Flonase Allergy Relief), 2 SPRAYS SAKINA DAILY Folic Acid (Folic Acid), 1,600 MCG PO 6XWK Hydrocodone/Acetaminophen 5MG/325MG ([place] 5MG/325MG), 0.5-1 TABLET PO Q6 PRN for Pain Lorazepam (Ativan), 0.5 MG PO TID PRN for Anxiety/Agitation Melatonin-Pyridoxine (Melatonin), 1.5 TABLET PO HS Methotrexate (Methotrexate), 6 TABLETS PO WK Methylcellulose (Laxative) (Citrucel Fiber Laxative), 1 DOSE PO DAILY Metoprolol Succ (Toprol Xl) (Toprol-Xl), 100 MG PO DAILY Multivitamins/Minerals (Mvi With Minerals), 1 TAB PO DAILY [place]-3 Fatty Acids (Fish Oil), 1,200 MG PO DAILY Pantoprazole (Protonix), 40 MG PO QAM Polyethylene Glycol-Propylene (Systane Ultra), 1 DROPS OP QAM Prednisone (Prednisone), 5 MG PO QAM Senna (Senokot), 1 TAB PO BID PRN for Constipation Medication Instructions Entered in error
[2017-03-23] VITALS (9 sets, daily range): BP systolic 76–139; BP diastolic 44–75; PULSE 77–134; TEMP 35.9–37.4; O2SAT 95–100; Ht 157.5 cm; Wt 51.3 kg
[~2017-03-23] VITALS: Ht 157.5 cm; Wt 51.3 kg
[~2017-03-23 07:34] MED LIST changes: -CALC500C3 PO; +CLINDAMYCIN PHOS 150 MG/ML 2 ML VIAL IV SCH; -CPRDOTS OT; -CYCL10TA6 PO; +LACTATED RINGER'S 1000ML 1,000 ML IV SCH; -MOML PO; +TRAM-10 PO
[2017-03-23] MEDS ORDERED: CPRDOTS OT (08:29)
[2017-03-23] MEDS ORDERED: MIDAZOLAM HCL 1 MG/ML 2ML VIAL ONE (09:34)
[2017-03-23] MEDS ORDERED: FENTANYL CITRATE INJ 50 MCG/1 ML 2 ML VIAL ONE ×3 (09:34→12:42)
--- NOTE | 2017-03-23 09:44 | History & Physical Bridge Note ---
H&P Re-Evaluation Bridge Note: I have examined the patient, reviewed the History & Physical and in the interval since the performance of the History & Physical I have noted the following changes of clinical significance: No changes noted
--- NOTE | 2017-03-23 09:45 | History and Physical ---
History & Physical Date Mar 23, 2017. Chief Complaint Back and leg pain History of Present Illness The patient is a 76 year old female with complaints of Past Medical/Surgical History Medical Problems: (1) Carpal Tunnel Syndrome (2) Hypertension Nos (3) IBS (irritable bowel syndrome) (4) Irritable Bowel Syndrome (5) Mitral valve prolapse (6) Osteoporosis Nos (7) PNA (pneumonia) (8) Sepsis Surgical Problems: (1) History of appendectomy Additional History Hepatic Disease: No Endocrine Disorder: No Kidney Disease: No Hypertension: Yes Heart Disease: No Bleeding Tendencies: No Infectious Diseases: No Allergies Coded Allergies: BEE STING (Verified Allergy, Intermediate, BEE/WASP-NAUSEA AND DIZZINESS, 03/23/17) Penicillins (Verified Allergy, Intermediate, RASH (PER PT, WAS A LONG TIME AGO)AMOXICILLIN AND PCN, 03/23/17) Esomeprazole (Verified Allergy, Mild, NAUSEA VOMITING, 03/23/17) Pt does not remember this Antipyrine (Verified Allergy, Unknown, RASH AND BLISTERS, 03/23/17) Pt reports does not remember this Benzocaine (Verified Allergy, Unknown, UNKNOWN, 02/27/17) Hydroxychloroquine (Verified Allergy, Unknown, UNKNOWN, 03/23/17) Misoprostol (Verified Allergy, Unknown, UNKNOWN, 02/27/17) Phenylephrine (Verified Allergy, Unknown, UNKNOWN, 03/23/17) Pseudoephedrine (Verified Allergy, Unknown, UNKNOWN, 03/23/17) Serotonin Reuptake Inhibitors (Verified Allergy, Unknown, UNKNOWN, 03/23/17 ) Sulfa Antibiotics (Verified Allergy, Unknown, UNKNOWN, 03/23/17) Citalopram (Verified Adverse Reaction, Mild, GI UPSET, 03/23/17) Clarithromycin (Verified Adverse Reaction, Mild, GI UPSET, 03/23/17) Home Medications Scheduled Aspirin (Aspirin), 81 MG PO DAILY Atorvastatin (Lipitor), 10 MG PO QPM Calcium Carbonate-Vitamin D (Calcium/Vitamin D), 1 CAP PO BID Cetirizine (Zyrtec), 10 MG PO QPM Cholecalciferol (Vitamin D 1000 Unit), 1,000 INTER.UNIT PO QAM Fluticasone Propionate (Nasal) (Flonase Allergy Relief), 2 SPRAYS SAKINA DAILY Folic Acid (Folic Acid), 1,600 MCG PO 6XWK Melatonin-Pyridoxine (Melatonin), 1.5 TABLET PO HS Methotrexate (Methotrexate), 6 TABLETS PO WK Methylcellulose (Laxative) (Citrucel Fiber Laxative), 1 DOSE PO DAILY Metoprolol Succ (Toprol Xl) (Toprol-Xl), 100 MG PO DAILY Multivitamins/Minerals (Mvi With Minerals), 1 TAB PO DAILY [place]-3 Fatty Acids (Fish Oil), 1,200 MG PO DAILY Pantoprazole (Protonix), 40 MG PO QAM Polyethylene Glycol-Propylene (Systane Ultra), 1 DROPS OP QAM Prednisone (Prednisone), 5 MG PO QAM Senna (Senokot), 1 TAB PO BID Scheduled PRN Acetaminophen (Tylenol), 1,000 MG PO TID PRN for Pain Ciprofloxacin-Dexamethasone (Ciprodex Otic), 4 DROPS OT BID PRN for Documentation Epinephrine (Epipen 2-Juliocesar), SQ for ALLERGIC REACTION Lorazepam (Ativan), 0.5 MG PO TID PRN for Anxiety/Agitation Tramadol (Ultram), 50 MG PO Q6H PRN for Pain Physical Examination Skin: warm/dry, no rash Eyes: normal inspection, EOMI, sclerae normal ENT: normal ENT inspection, pharynx normal Head: normocephalic, atraumatic Neck: supple, no adenopathy, trachea midline Respiratory/Chest: lungs clear, normal breath sounds, no respiratory distress Cardiovascular: regular rate, rhythm, no edema, no murmur Abdomen / GI: normal bowel sounds, non tender Back: normal inspection Extremities: normal inspection, normal range of motion Neurologic/Psych: no motor/sensory deficits, alert, normal reflexes, oriented x 3 Diagnosis Lumbar spinal stenosis with scoliosis Plan of Treatment Lumbar decompression and fusion L2 to S1
[2017-03-23] MEDS ORDERED: ALBUMIN HUMAN 5% 12.5 GM/250 ML VIAL IV ONE ×2 (10:05→12:56)
[2017-03-23] MEDS ORDERED: BUPIVACAINE/EPINEPHRINE 0.5% MPF 1:200,000 10 ML VIAL ONE (10:06)
[2017-03-23] MEDS ORDERED: BACITRACIN 50000 UNIT VIAL ONE (10:06)
[2017-03-23] MEDS ORDERED: ONDANSETRON INJ 2 MG/ML 2 ML VIAL IV PRN (10:45)
[2017-03-23] MEDS ORDERED: HYDROmorphone INJ 1 MG/ML SYR IV PRN (10:45)
[2017-03-23] MEDS ORDERED: LABETALOL HCL IV 5 MG/ML 20ML IV PRN (10:45)
[2017-03-23] MEDS ORDERED: FENTANYL CITRATE INJ 50 MCG/1 ML 2 ML VIAL IV PRN (10:45)
[2017-03-23] MEDS ORDERED: ATROPINE SULFATE 0.1 MG/ML 5ML SYR IV PRN (10:45)
[2017-03-23] MEDS ORDERED: MEPERIDINE HCL 25 MG/ML CARP IV PRN (10:45)
[2017-03-23] MEDS ORDERED: HYDROmorphone INJ 2 MG/ML SYR/VIAL ONE ×3 (11:04→13:18)
[2017-03-23] MEDS ORDERED: LIDOCAINE HCL 2% 2 ML VIAL (20MG/ML) ONE (11:09)
[2017-03-23] MEDS ORDERED: DEXAMETHASONE SOD INJ 4 MG/ML VIAL ONE (11:09)
[2017-03-23] MEDS ORDERED: ROCURONIUM BROMIDE 10 MG/ML 5 ML VIAL IV ONE ×3 (11:09→13:34)
[2017-03-23] MEDS ORDERED: PROPOFOL IV EMULSION 10 MG/ML 20 ML VIAL IV ONE (11:09)
[2017-03-23] MEDS ORDERED: EpHEDrine SULFATE 50MG/5ML SYR ONE ×2 (12:43→13:21)
[2017-03-23] MEDS ORDERED: PHENYLEPHRINE 100MCG/ML 5ML SYR ONE ×2 (12:43→13:21)
[2017-03-23] MEDS ORDERED: SODIUM CHLORIDE 0.9% 1000ML 1,000 ML IV SCH (13:09)
[2017-03-23] MEDS: SODIUM CHLORIDE 0.9% 1000ML 1,000 ML IV SCH ×2 (13:09→19:31)
[2017-03-23] MEDS ORDERED: FLOSEAL HEMOSTATIC MATRIX 10ML TOP ONE (13:12)
[2017-03-23] MEDS ORDERED: ALUMINUM/MAGNESIUM SUSP 30 ML UDC PO PRN (13:15)
[2017-03-23] MEDS ORDERED: MAGNESIUM HYDROXIDE SUSP 30 ML UDC PO PRN (13:15)
[2017-03-23] MEDS ORDERED: LORAZEPAM 0.5 MG TAB PO PRN (13:15)
[2017-03-23] MEDS ORDERED: BISACODYL 10 MG SUPP PR PRN (13:15)
[2017-03-23] MEDS ORDERED: NALOXONE HCL 0.4 MG/1 ML VIAL/CARP IV PRN ×2 (13:15)
[2017-03-23] MEDS ORDERED: ACETAMINOPHEN 500 MG TAB PO PRN (13:15)
[2017-03-23] MEDS ORDERED: LORAZEPAM INJ 0.5 MG in SYRINGE 0 ML IV PRN (13:15)
[2017-03-23] MEDS ORDERED: hydrOXYzine HCL 25 MG TAB PO PRN (13:15)
[2017-03-23] MEDS ORDERED: DO NOT ADMINISTER PNEUMOCOCCAL VACCINE PRN ×2 (13:15)
[2017-03-23] MEDS ORDERED: DO NOT ADMINISTER FLU VACCINE PRN ×3 (13:15)
[2017-03-23] MEDS ORDERED: SOD PHOSPHATE/SOD BIPHOSPHATE ENEMA 132 ML BTL PR PRN (13:15)
[2017-03-23] MEDS ORDERED: FAMOTIDINE 20 MG TAB PO PRN (13:15)
[2017-03-23] MEDS ORDERED: ACETAMINOPHEN IV 100 ML IV PRN (13:15)
--- NOTE | 2017-03-23 13:15 | DIAGNOSTIC IMAGING REPORT ---
LUMBAR SPINE, INTRAOPERATIVE FLUOROSCOPY HISTORY: L2-S1 decompression fusion. FLUOROSCOPY TIME: 44 seconds. FINDINGS: Intraoperative fluoroscopy was provided for the lumbar spine. 4 fluoroscopic spot images were obtained. Posterior decompression fusion from L2 through S1 with pedicle screws and rods. There are bilateral sacroiliac bolts. The hardware appears intact. IMPRESSION: Fluoroscopy provided for a L2-S1 posterior decompression and fusion. Electronically signed by: Derrick Jimenez M.D. 03/23/2017 1:13 PM Dictated Date/Time: 03/23/2017 1:13 PM
--- NOTE | 2017-03-23 13:18 | [facility] Operative Report ---
Operative Report Operative Date Mar 23, 2017. Pre-Operative Diagnosis Lumbar spinal stenosis with scoliosis Post-Operative Diagnosis Lumbar spinal stenosis with scoliosis Procedure(s) Performed #1 lumbar decompression medial facetectomies foraminotomies L3 4 L4 5 L5-S1. #2 posterior spinal fusion L2 3 L3 4 L4 5 L5-S1. #3 bilateral SI joint fusions. #4 posterior segmental instrumentation L2 to S1 with bilateral iliac bolts. #5 interbody fusion L5-S1. #6 this of peek cage 10 x 22 mm L5-S1. #7 placement locally harvested morcellized autograft and posterior gutters. #8 placement of osteoamp bone graft in the interbody space posterior lateral gutters and SI joints. Surgeon Dr. Alexy Fernandes Convention Planner Surgeon(s) Shala Grullon PA-C Estimated Blood Loss 800ML Findings Severe spinal stenosis with scoliosis and spondylolisthesis Specimens none per surgeon Dr. Alexy Fernandes Description of Procedure Patient was met with preoperatively case discussed all questions are dressed. After informed consent patient was taken back to the operative suite after intubation placed in prone position the [place] table top Mario frame. All bony promises well-padded eyes inspected to ensure no external pressure. This point the lumbar spine is prepped and draped nostril fashion. Sharp dissection with the assistance of Bovie cautery was performed onto an exposing the lamina and transverse processes of L2-L3 L4-L5 sacral Sonia the bilateral iliac crests. From a caudal to cephalad fashion complete laminectomy of L5 L4 L3 was performed addressing severe lateral recess and foraminal stenosis. After this complete pedicle screws were placed in L2 L3 L4 L5-S1 as well as bilateral iliac bolts. Through a transforaminal port and left complete discectomy of L5 S1 was performed and plate then curetted to subcortical bleeding bone and a 10 x 22 mm peek cage filled with osteoamp was tapped in position. Purposes rods were then contoured and placed bilaterally. This time the transverse processes of L2-L3 L4-L5 the sacroiliac the bilateral SI joints were then burred to subcortical bleeding bone. The remaining bone graft was packed in the SI joints posterior lateral gutters. Cross-link was locked into position. 15 round QUEENIE drain inserted. Incision then closed with 1 Vicryl in the fascia 2-0 Vicryl subcutaneously for Monocryl for final skin closure. Steri-Strips sterile dressing placed patient we can taken to PACU stable condition. Please note Shala Swift was present throughout the entire procedure involved in patient positioning complex portions of the procedure and final skin closure. I attest to the content of the Intraoperative Record and any orders documented therein. Any exceptions are noted below.
[2017-03-23] MEDS ORDERED: GLYCOPYRROLATE INJ 0.2 MG/ML VIAL ONE ×2 (13:21→13:39)
[2017-03-23] MEDS ORDERED: NEOSTIGMINE METHYLSULFATE 1 MG/ML 10ML VIAL ONE ×2 (13:21→13:40)
[2017-03-23] MEDS ORDERED: ONDANSETRON INJ 2 MG/ML 2 ML VIAL ONE ×2 (13:21→13:34)
[2017-03-23] MEDS ORDERED: METOPROLOL TARTRATE 1 MG/ML VIAL ONE (13:43)
[2017-03-23 14:35] LABS: HEMATOCRIT 19.1 % (37-47)
[2017-03-23] MEDS: EpHEDrine SULFATE INJ 50 MG/ML AMP IV PRN ×4 (14:37→15:16)
[2017-03-23] MEDS: HYDROmorphone HCL 0.5MG/ML 50 ML CASSETTE IV PRN ×2 (15:30→16:41)
[2017-03-23] MEDS ORDERED: NURSING VERBAL MED ORDER ONE (15:45)
--- NOTE | 2017-03-23 16:11 | Anesthesiology Progress Note ---
Anesthesia Post Op Note Date & Time Mar 23, 2017 at 16:09 Vital Signs Pain Intensity: 3 Vital Signs Past 12 Hours Date Time Temp Pulse Resp B/P (MAP) Pulse Ox O2 Delivery O2 Flow Rate FiO2 03/23/17 16:00 36.2 90 16 131/76 100 Oxymask 10 03/23/17 15:50 36.2 91 16 133/62 100 Oxymask 10 03/23/17 15:40 36.2 88 16 111/65 100 Oxymask 10 03/23/17 15:30 36.2 85 16 99/65 100 Oxymask 10 03/23/17 15:20 36.1 85 16 103/67 100 Oxymask 10 03/23/17 15:10 36.2 89 16 94/52 100 Oxymask 10 03/23/17 15:00 89 16 78/47 100 Oxymask 10 03/23/17 14:51 35.9 92 14 76/44 98 10.0 03/23/17 14:50 91 16 76/44 100 Oxymask 10 03/23/17 14:40 90 16 89/54 100 Oxymask 10 03/23/17 14:30 83 16 56/47 100 Oxymask 10 03/23/17 14:20 88 16 90/47 100 Oxymask 10 03/23/17 14:10 100 12 116/82 100 Oxymask 10 03/23/17 14:00 104 12 117/65 100 Oxymask 10 03/23/17 13:50 112 12 114/71 100 Oxymask 10 03/23/17 13:40 36.1 110 12 110/76 100 Oxymask 10 03/23/17 08:33 36.4 77 20 139/75 95 Room Air Notes Mental Status: alert / awake / arousable, participated in evaluation Pt Amnestic to Procedure: Yes Nausea / Vomiting: adequately controlled Pain: adequately controlled Airway Patency, RR, SpO2: stable & adequate BP & HR: stable & adequate Hydration State: stable & adequate Anesthetic Complications: no major complications apparent Ms. Carlton was found to have anemic post surgery in recovery room. She was mildly hypotensive that required several small doses of vasoactive medications while we awaited arrival of 2 units pRBC's. These were given and patient's BP responded nicely as her pressures were in the 120-130's/60-70's. HR in 80's. Patient's pain adequately controlled. SpO2 97-98% on NC. She is conversant and ok for transfer to med-surg unit.
[2017-03-23] MEDS: CLINDAMYCIN IV 600 MG in DEXTROSE 5% 50ML 50 ML IV SCH (18:17)
[2017-03-23] MEDS: METOCLOPRAMIDE HCL INJ 5 MG/ML 2 ML VIAL IV PRN (18:43)
[2017-03-23] MEDS: DEXAMETHASONE INJ 6 MG in SYRINGE 0 ML IV SCH (19:34)
[2017-03-23] MEDS ORDERED: ATORVASTATIN 10 MG TAB PO SCH (21:00)
[2017-03-23] MEDS: CETIRIZINE HCL 10 MG TAB PO SCH (21:04)
[2017-03-23] MEDS: SENNA 8.6 MG TAB PO SCH (21:04)
[2017-03-23] MEDS: DOCUSATE SODIUM/SENNA 50/8.6MG TAB PO SCH (21:05)
[2017-03-23 22:13] LABS: BUN/CREATININE RATIO 10.5 (10-20); CALCIUM 7.8 mg/dl (8.5-10.1); CREATININE 0.94 mg/dl (0.60-1.20); MAGNESIUM 1.5 mg/dl (1.8-2.4); POTASSIUM 4.6 mmol/L (3.5-5.1)
[2017-03-23 22:24] LABS: THYROID STIMULATING HORMONE 1.01 uIu/ml (0.300-4.500)
[2017-03-23] MEDS ORDERED: SODIUM CHLORIDE 0.9% 1000ML 1,000 ML IV STA (22:28)
--- NOTE | 2017-03-23 22:35 | Progress Note ---
Internal Med Progress Note Date of Service: Mar 23, 2017. Provider Documentation: Made aware by RN of SBP 90s, cardiac rate 110s. Patient comfortable as per RN. AP Hypotension, tachycardia possibly from hypovolemia NSS bolus now Appropriate to hold Metoprolol and Dilaudid PIECER for now. Vital Signs: Date Time Temp Pulse Resp B/P (MAP) Pulse Ox O2 Delivery O2 Flow Rate FiO2 03/24/17 06:15 123 19 104/62 (76) 91 Nasal Cannula 2.0 03/24/17 06:10 126 28 111/54 (73) 93 Nasal Cannula 2.0 03/24/17 05:50 36.9 128 29 93/57 (69) 96 Nasal Cannula 2.0 03/24/17 05:40 36.9 130 18 95 2.0 03/24/17 04:39 36.9 129 18 72/58 (63) 95 Nasal Cannula 2.0 03/24/17 04:19 36.3 127 16 65/55 (58) 97 Nasal Cannula 2.0 03/24/17 03:49 130 63/55 (58) 03/24/17 03:15 128 64/45 (51) 03/24/17 02:25 135 92/59 (70) 03/24/17 02:23 130 87/58 (68) 96 Nasal Cannula 2.0 03/24/17 02:21 134 77/54 (62) 97 Nasal Cannula 2.0 03/24/17 02:20 128 60/50 (53) 03/24/17 02:09 36.4 131 24 63/56 (58) 98 Nasal Cannula 2.0 03/24/17 00:00 98 Nasal Cannula 2.0 03/24/17 00:00 130 28 96 Nasal Cannula 2.0 03/23/17 22:51 36.8 134 16 103/70 (81) 97 Nasal Cannula 2.0 03/23/17 21:15 127 03/23/17 19:50 37.4 117 16 95/61 (72) 100 Nasal Cannula 4.0 03/23/17 18:29 36.2 118 16 90/65 (73) 100 Nasal Cannula 4.0 03/23/17 17:27 36.6 104 16 90/63 (72) 100 Nasal Cannula 4.0 03/23/17 17:00 36.4 96 12 96/66 (76) 100 Nasal Cannula 4.0 03/23/17 16:30 Nasal Cannula 4.0 03/23/17 16:30 Nasal Cannula 4.0 03/23/17 16:30 36.5 90 12 103/72 (82) 100 Nasal Cannula 4.0 03/23/17 16:00 36.2 90 16 131/76 100 Oxymask 10 03/23/17 15:50 36.2 91 16 133/62 100 Oxymask 10 03/23/17 15:40 36.2 88 16 111/65 100 Oxymask 10 03/23/17 15:30 36.2 85 16 99/65 100 Oxymask 10 03/23/17 15:20 36.1 85 16 103/67 100 Oxymask 10 03/23/17 15:10 36.2 89 16 94/52 100 Oxymask 10 03/23/17 15:00 89 16 78/47 100 Oxymask 10 03/23/17 14:51 35.9 92 14 76/44 98 10.0 03/23/17 14:50 91 16 76/44 100 Oxymask 10 03/23/17 14:40 90 16 89/54 100 Oxymask 10 03/23/17 14:30 83 16 56/47 100 Oxymask 10 03/23/17 14:20 88 16 90/47 100 Oxymask 10 03/23/17 14:10 100 12 116/82 100 Oxymask 10 03/23/17 14:00 104 12 117/65 100 Oxymask 10 03/23/17 13:50 112 12 114/71 100 Oxymask 10 03/23/17 13:40 36.1 110 12 110/76 100 Oxymask 10 03/23/17 08:33 36.4 77 20 139/75 95 Room Air Lab Results: Results Past 24 Hours Test 03/23/17 14:12 03/23/17 19:03 03/23/17 21:50 03/24/17 02:28 Range/Units Hemoglobin 6.5 10.8 12.0-16.0 g/dL Hematocrit 19.1 30.0 37-47 % Sodium Level 138 136-145 mmol/L Potassium Level 4.6 3.5-5.1 mmol/L Chloride Level 109 98-107 mmol/L Carbon Dioxide Level 21 21-32 mmol/L Anion Gap 8.0 3-11 mmol/L Blood Urea Nitrogen 10 7-18 mg/dl Creatinine 0.94 0.60-1.20 mg/dl Est Creatinine Clear Calc Drug Dose 39.8 ml/min Estimated GFR () 68.8 Estimated GFR (Non- 59.3 BUN/Creatinine Ratio 10.5 10-20 Random Glucose 159 70-99 mg/dl Lactic Acid Level 2.7 0.4-2.0 mmol/L Calcium Level 7.8 8.5-10.1 mg/dl Magnesium Level 1.5 1.8-2.4 mg/dl Thyroid Stimulating Hormone (TSH) 1.010 0.300-4.500 uIu/ml Bedside Glucose 293 70-90 mg/dl Test 03/24/17 03:40 03/24/17 05:08 Range/Units White Blood Count 20.54 4.8-10.8 K/uL Red Blood Count 2.52 4.2-5.4 M/uL Hemoglobin 8.1 12.0-16.0 g/dL Hematocrit 22.3 37-47 % Mean Corpuscular Volume 88.5 80-100 fL Mean Corpuscular Hemoglobin 32.1 25-34 pg Mean Corpuscular Hemoglobin Concent 36.3 32-36 g/dl Platelet Count 119 130-400 K/uL Mean Platelet Volume 9.8 7.4-10.4 fL Neutrophils (%) (Auto) 84.9 % Lymphocytes (%) (Auto) 4.2 % Monocytes (%) (Auto) 10.5 % Eosinophils (%) (Auto) 0.0 % Basophils (%) (Auto) 0.0 % Neutrophils # (Auto) 17.43 1.4-6.5 K/uL Lymphocytes # (Auto) 0.87 1.2-3.4 K/uL Monocytes # (Auto) 2.15 0.11-0.59 K/uL Eosinophils # (Auto) 0.00 0-0.5 K/uL Basophils # (Auto) 0.01 0-0.2 K/uL RDW Standard Deviation 52.1 36.4-46.3 fL RDW Coefficient of Variation 16.1 11.5-14.5 % Immature Granulocyte % (Auto) 0.4 % Immature Granulocyte # (Auto) 0.08 0.00-0.02 K/uL Red Blood Cell Morphology Unremarkable Sodium Level 136 136-145 mmol/L Potassium Level 4.3 3.5-5.1 mmol/L Chloride Level 108 98-107 mmol/L Carbon Dioxide Level 17 21-32 mmol/L Anion Gap 11.0 3-11 mmol/L Blood Urea Nitrogen 11 7-18 mg/dl Creatinine 1.40 0.60-1.20 mg/dl Est Creatinine Clear Calc Drug Dose 26.7 ml/min Estimated GFR () 42.5 Estimated GFR (Non- 36.7 BUN/Creatinine Ratio 7.7 10-20 Random Glucose 222 70-99 mg/dl Estimated Average Glucose 105 mg/dl Hemoglobin A1c 5.3 4.5-5.6 % Lactic Acid Level 6.2 0.4-2.0 mmol/L Calcium Level 7.0 8.5-10.1 mg/dl Phosphorus Level 3.6 2.5-4.9 mg/dl Magnesium Level 2.3 1.8-2.4 mg/dl Albumin 2.6 2.6 3.4-5.0 gm/dl Total Bilirubin 0.7 0.2-1 mg/dl Direct Bilirubin 0.3 0-0.2 mg/dl Aspartate Amino Transf (AST/SGOT) 45 15-37 U/L Alanine Aminotransferase (ALT/SGPT) 28 12-78 U/L Alkaline Phosphatase 53 45-117 U/L Total Creatine Kinase 917 26-192 U/L Troponin I 0.184 0-0.045 ng/ml Total Protein 4.1 6.4-8.2 gm/dl Lipase 313 73-393 U/L Procalcitonin 3.36 0-0.5 ng/ml Microbiology Results 03/24/17 Blood Culture, Received Pending 03/24/17 Blood Culture, Received Pending 03/24/17 MRSA DNA Surveillance Screen, Received Pending
[2017-03-23] MEDS ORDERED: HYDROmorphone INJ 0.5 MG/0.5 ML SYR IV PRN (22:45)
[2017-03-23] MEDS: MAGNESIUM SULFATE 1GM / D5W 1 GM in PREMIXED IN D5W 100 ML IV SCH (23:23)
[2017-03-24] VITALS (31 sets, daily range): BP systolic 60–141; BP diastolic 45–75; PULSE 102–135; TEMP 36.3–36.9; O2SAT 91–100
--- NOTE | 2017-03-24 00:22 | CONSULTATION REPORT ---
DATE OF CONSULTATION: 03/23/2017 PRIMARY CARE PHYSICIAN: Aaron Wolf MD CONSULT REQUESTED BY: Dr. Fernandes for medical management following lumbar spinal procedure. HISTORY OF PRESENT COMPLAINT: She is a 76-year-old female with significant past medical history including hypertrophic obstructive cardiomyopathy, rheumatoid arthritis, diaphragmatic hernia, hyperlipidemia; apparently underwent lumbar decompression and fusion by Dr. Fernandes today. She has been complaining of ongoing back pain, radiculopathy secondary to lumbar spinal stenosis with the scoliosis for a while. She has had preop workup and evaluation in the primary care's office and she was cleared for surgery. Following surgery, she was noted to have very low hemoglobin and she was looking pale. Her blood pressure was low and she required 1 dose of ephedrine in PACU unit. She complains to have drowsiness at this time, but she denies to have any pain especially chest pain. She does not have any shortness of breath. She feels little nauseous; otherwise, she seems to be okay. PAST MEDICAL HISTORY: Significant for rheumatoid arthritis, hypertrophic obstructive cardiomyopathy, obsessive compulsive disorder, history of diaphragmatic hernia, GERD, hyperlipidemia, and history of irritable bowel syndrome. PAST SURGICAL HISTORY: Significant for needle localization of right breast biopsy, benign; appendectomy; and tonsillectomy as a child. FAMILY HISTORY: Sister has diabetes. Father had glaucoma and heart disorder. Mother had heart disorder too. SOCIAL HISTORY: She is . She does not use any tobacco and/or alcohol. She has been reasonably ambulant. ALLERGIES: SHE IS ALLERGIC TO BEE STINGS, PENICILLIN, ESOMEPRAZOLE, AMITRIPTYLINE, BENZOCAINE, HYDROXYCHLOROQUINE, MISOPROSTOL, PHENYLEPHRINE, PSEUDOEPHEDRINE, SEROTONIN REUPTAKE INHIBITORS, SULFA ANTIBIOTIC, CITALOPRAM, AND CLARITHROMYCIN. MEDICATIONS: As an outpatient she has been on Tylenol 1000 mg t.i.d. as needed, vitamin D 1000 units daily, EpiPen as directed, Ativan 0.5 mg t.i.d. as needed, methotrexate 15 mg every week, laxatives as directed, multivitamin tablet 1 daily, prednisone 5 mg in the morning, calcium carbonate with vitamin D one capsule twice daily, Ciprodex otic suspension 4 drops in Eye b.i.d. as needed, folic acid 1600 mcg 6 times a week, melatonin 1.5 mg tablet at night, omega 3 fatty acid 1200 mg daily, Systane Ultra 1 drop OP q.a.m., aspirin 81 mg daily, atorvastatin 10 mg daily, Zyrtec 10 mg daily, Flonase nasal spray 2 sprays each nostril daily, Toprol-XL 100 mg daily, Protonix 40 mg daily, senna 8.6 mg b.i.d., and Ultram 50 mg q. 6 hourly as needed. REVIEW OF SYSTEMS: CENTRAL NERVOUS SYSTEM: She does have drowsiness, but no headache, no numbness or tingling in the extremities. She is generally weak. RESPIRATORY: No shortness of breath. No fever, chills or rigors. No cough or phlegm. CARDIOVASCULAR: No chest pain, palpitation. GASTROINTESTINAL: No problem with urine. No problem with abdominal distention. Does have nausea but no vomiting. GENITOURINARY: No problem with urine and/or bowel habit. MUSCULOSKELETAL: No acute arthritis in any joint. CENTRAL NERVOUS SYSTEM: Generally she does not have any rash and/or enlargement of lymph nodes. She feels generally weak. PHYSICAL EXAMINATION: GENERAL: On examination in the medical floor, she was not having any acute distress. VITAL SIGNS: Temperature 36.6, pulse of 104, blood pressure 90/63, saturation 100% on 4 liters nasal cannula. HEENT: Unremarkable except she looked pale. NECK: Supple. No JVD, no bruit. CHEST: Decreased breath sounds at bases. HEART: S1, S2 regular. ABDOMEN: Soft, benign, nontender, no organomegaly. Bowel sounds present. EXTREMITIES: Negative for any edema. MUSCULOSKELETAL SYSTEM: Did not show any acute arthritis. CENTRAL NERVOUS SYSTEM: She was alert, awake, oriented. She was generally weak but no acute neuro deficit noted in any side. LABORATORY DATA: Noted from 02/24/2017; white count 9.90, H&H 14.7/44.7, platelet was 155. Her H&H following surgery is 6.5/19.1. Chemistry as of 02/24/2017; sodium 137, potassium 3.9, chloride 104, carbon dioxide 26, BUN 17, creatinine 0.73, random glucose 98. UA examination unremarkable. Her EKG noted from outpatient prior to surgery was in sinus rhythm, left atrial enlargement, left axis deviation with left bundle branch block. Chest x-ray was done in January, no acute process, mild emphysematous changes. Echocardiogram that was done in March 2011, reported as left ventricular cavity size is normal. Due to significant left ventricular hypertrophy, LV wall thickness is severely increased, EF was 70%. There is dynamic left ventricular outflow tract obstruction at rest. No significant mitral regurgitation. Compared to prior study of 2014, there has been interval decrease in the LV outflow tract gradient, and the mitral regurgitation appears to be improved. IMPRESSION AND PLAN: 1. Status post lumbar decompression and fusion. The management will be as per orthopedic surgeon. 2. Acute blood loss anemia. Her hemoglobin dropped to 6.5 from 14.7 prior to surgery. She has had about 1800 mL of blood loss during the procedure, she got 2 units of blood transfusion. We will check her H&H tonight and tomorrow morning. 3. Hypertension with evidence of hypotension following surgery. The hypotension could be secondary to blood loss and could be secondary to mild dehydration, also medications effect. We will monitor the blood pressure while in hospital. She will get IV fluid of normal saline at 150 mL per hour which will increase the blood pressure to some extent. 4. Hypertrophic obstructive cardiomyopathy. She does not have any acute symptoms at this time. We will continue to provide her usual medications for that. 5. Rheumatoid arthritis. She has been on prednisone 5 mg daily, continue with that; and methotrexate will be continued as an outpatient. 6. Hyperlipidemia. Continue with statin. 7. Gastrointestinal prophylaxis, Protonix. 8. Deep venous thrombosis prophylaxis as per ortho. Thank you for this consultation. I will be following this patient with you during this hospitalization. BINTA
[2017-03-24] MEDS: MAGNESIUM SULFATE 1GM / D5W 1 GM in PREMIXED IN D5W 100 ML IV SCH (00:30)
[2017-03-24] MEDS: CLINDAMYCIN IV 600 MG in DEXTROSE 5% 50ML 50 ML IV SCH (01:35)
[2017-03-24] MEDS ORDERED: SODIUM CHLORIDE 0.9% 1000ML 1,000 ML IV STA ×2 (02:16→03:58)
[2017-03-24] MEDS ORDERED: DEXAMETHASONE INJ 4 MG in SYRINGE 0 ML IV STA (02:23)
[2017-03-24] MEDS ORDERED: SODIUM CHLORIDE 0.9% 1000ML 1,000 ML IV SCH ×4 (02:30→09:00)
[2017-03-24] MEDS ORDERED: INSULIN GLARGINE SOLOSTAR 100 UNITS/ML 3 ML PEN SC ONE ×3 (02:55→11:00)
[2017-03-24] MEDS ORDERED: INSULIN ASPART 100 UNITS/ML 3 ML PEN SC ONE (02:58)
[2017-03-24] MEDS ORDERED: DEXTROSE 50% 50 ML SYR IV PRN (03:00)
[2017-03-24] MEDS ORDERED: GLUCOSE 40% GEL 15 GM TUBE PO PRN (03:00)
[2017-03-24] MEDS ORDERED: GLUCAGON FOR INJ 1 MG VIAL SQ PRN (03:00)
[2017-03-24] MEDS ORDERED: GLUCOSE 10 TABS/TUBE PO PRN (03:00)
[2017-03-24 04:00] LABS: HEMATOCRIT 22.3 % (37-47); MEAN CELL VOLUME 88.5 fL (80-100); MEAN CORPUSCULAR HEMOGLOBIN 32.1 pg (25-34); MEAN CORPUSCULAR HGB CONC 36.3 g/dl (32-36); MEAN PLATELET VOLUME 9.8 fL (7.4-10.4); PLATELET COUNT 119 K/uL (130-400); RED BLOOD COUNT 2.52 M/uL (4.2-5.4); WHITE BLOOD COUNT 20.54 K/uL (4.8-10.8)
[2017-03-24] MEDS: DEXAMETHASONE INJ 6 MG in SYRINGE 0 ML IV SCH ×2 (04:01→11:34)
[2017-03-24 04:16] LABS: BUN/CREATININE RATIO 7.7 (10-20); CREATININE 1.4 mg/dl (0.60-1.20); MAGNESIUM 2.3 mg/dl (1.8-2.4); PHOSPHORUS 3.6 mg/dl (2.5-4.9); POTASSIUM 4.3 mmol/L (3.5-5.1)
--- NOTE | 2017-03-24 04:36 | Progress Note ---
Internal Med Progress Note Date of Service: Mar 24, 2017. Provider Documentation: SUBJECTIVE: I requested RN to recheck patient vital signs at 2 AM. SBP 60s, cardiac rate 130s as per RN Patient denies chest pain, shortness of breath, cough "I feel sick, thirsty." Some abdominal discomfort "on one spot" as per patient. Tolerable back pain as per patient. SBP improved 90s at 230AM after initial fluid bolus and IV Decadron for possible adrenal insufficiency . 3 AM onwards - SBP 60-70s despite IVF, additional Decadron OBJECTIVE: Vital Signs-as noted below Exam: General-anxious, slightly uncomfortable , frail HEENT -pale palp conjunctivae, dry buccal mucosa Neck-supple Lungs-decreased breath sounds Heart-tachycardic Abdomen-soft Extremities-min edema, no tenderness NE coherent lactic acid 6.5 abnormal pro-calcitonin ASSESSMENT & PLAN: Persistent Hypotension Multifactorial : Hypovolemia Possible adrenal insufficiency (history steroid dependent RA) Possible sepsis in an immunocompromised patient (?intra-abdominal source) ICU transfer to facilitate pressor (Levophed) therapy Continue IV fluid (caution with big boluses hx HOCM) CS, IV Vanco, Cefepime, and Flagyl for now Follow lactic acid Decadron for poss adrenal insufficiency CT abdomen and pelvis once BP stable RE re: vague abdominal complaints. DVT prophylaxis. SCDs RE recent back surgery Case discussed with Drs. 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 updated over the phone of developments. Total critical care time was 45 minutes. Vital Signs: Date Time Temp Pulse Resp B/P (MAP) Pulse Ox O2 Delivery O2 Flow Rate FiO2 03/24/17 06:15 123 19 104/62 (76) 91 Nasal Cannula 2.0 03/24/17 06:10 126 28 111/54 (73) 93 Nasal Cannula 2.0 03/24/17 05:50 36.9 128 29 93/57 (69) 96 Nasal Cannula 2.0 03/24/17 05:40 36.9 130 18 95 2.0 03/24/17 04:39 36.9 129 18 72/58 (63) 95 Nasal Cannula 2.0 03/24/17 04:19 36.3 127 16 65/55 (58) 97 Nasal Cannula 2.0 03/24/17 03:49 130 63/55 (58) 03/24/17 03:15 128 64/45 (51) 03/24/17 02:25 135 92/59 (70) 03/24/17 02:23 130 87/58 (68) 96 Nasal Cannula 2.0 03/24/17 02:21 134 77/54 (62) 97 Nasal Cannula 2.0 03/24/17 02:20 128 60/50 (53) 03/24/17 02:09 36.4 131 24 63/56 (58) 98 Nasal Cannula 2.0 03/24/17 00:00 98 Nasal Cannula 2.0 03/24/17 00:00 130 28 96 Nasal Cannula 2.0 03/23/17 22:51 36.8 134 16 103/70 (81) 97 Nasal Cannula 2.0 03/23/17 21:15 127 03/23/17 19:50 37.4 117 16 95/61 (72) 100 Nasal Cannula 4.0 03/23/17 18:29 36.2 118 16 90/65 (73) 100 Nasal Cannula 4.0 03/23/17 17:27 36.6 104 16 90/63 (72) 100 Nasal Cannula 4.0 03/23/17 17:00 36.4 96 12 96/66 (76) 100 Nasal Cannula 4.0 03/23/17 16:30 Nasal Cannula 4.0 03/23/17 16:30 Nasal Cannula 4.0 03/23/17 16:30 36.5 90 12 103/72 (82) 100 Nasal Cannula 4.0 03/23/17 16:00 36.2 90 16 131/76 100 Oxymask 10 03/23/17 15:50 36.2 91 16 133/62 100 Oxymask 10 03/23/17 15:40 36.2 88 16 111/65 100 Oxymask 10 03/23/17 15:30 36.2 85 16 99/65 100 Oxymask 10 03/23/17 15:20 36.1 85 16 103/67 100 Oxymask 10 03/23/17 15:10 36.2 89 16 94/52 100 Oxymask 10 03/23/17 15:00 89 16 78/47 100 Oxymask 10 03/23/17 14:51 35.9 92 14 76/44 98 10.0 03/23/17 14:50 91 16 76/44 100 Oxymask 10 03/23/17 14:40 90 16 89/54 100 Oxymask 10 03/23/17 14:30 83 16 56/47 100 Oxymask 10 03/23/17 14:20 88 16 90/47 100 Oxymask 10 03/23/17 14:10 100 12 116/82 100 Oxymask 10 03/23/17 14:00 104 12 117/65 100 Oxymask 10 03/23/17 13:50 112 12 114/71 100 Oxymask 10 03/23/17 13:40 36.1 110 12 110/76 100 Oxymask 10 03/23/17 08:33 36.4 77 20 139/75 95 Room Air Lab Results: Results Past 24 Hours Test 03/23/17 14:12 03/23/17 19:03 03/23/17 21:50 03/24/17 02:28 Range/Units Hemoglobin 6.5 10.8 12.0-16.0 g/dL Hematocrit 19.1 30.0 37-47 % Sodium Level 138 136-145 mmol/L Potassium Level 4.6 3.5-5.1 mmol/L Chloride Level 109 98-107 mmol/L Carbon Dioxide Level 21 21-32 mmol/L Anion Gap 8.0 3-11 mmol/L Blood Urea Nitrogen 10 7-18 mg/dl Creatinine 0.94 0.60-1.20 mg/dl Est Creatinine Clear Calc Drug Dose 39.8 ml/min Estimated GFR () 68.8 Estimated GFR (Non- 59.3 BUN/Creatinine Ratio 10.5 10-20 Random Glucose 159 70-99 mg/dl Lactic Acid Level 2.7 0.4-2.0 mmol/L Calcium Level 7.8 8.5-10.1 mg/dl Magnesium Level 1.5 1.8-2.4 mg/dl Thyroid Stimulating Hormone (TSH) 1.010 0.300-4.500 uIu/ml Bedside Glucose 293 70-90 mg/dl Test 03/24/17 03:40 03/24/17 05:08 Range/Units White Blood Count 20.54 4.8-10.8 K/uL Red Blood Count 2.52 4.2-5.4 M/uL Hemoglobin 8.1 12.0-16.0 g/dL Hematocrit 22.3 37-47 % Mean Corpuscular Volume 88.5 80-100 fL Mean Corpuscular Hemoglobin 32.1 25-34 pg Mean Corpuscular Hemoglobin Concent 36.3 32-36 g/dl Platelet Count 119 130-400 K/uL Mean Platelet Volume 9.8 7.4-10.4 fL Neutrophils (%) (Auto) 84.9 % Lymphocytes (%) (Auto) 4.2 % Monocytes (%) (Auto) 10.5 % Eosinophils (%) (Auto) 0.0 % Basophils (%) (Auto) 0.0 % Neutrophils # (Auto) 17.43 1.4-6.5 K/uL Lymphocytes # (Auto) 0.87 1.2-3.4 K/uL Monocytes # (Auto) 2.15 0.11-0.59 K/uL Eosinophils # (Auto) 0.00 0-0.5 K/uL Basophils # (Auto) 0.01 0-0.2 K/uL RDW Standard Deviation 52.1 36.4-46.3 fL RDW Coefficient of Variation 16.1 11.5-14.5 % Immature Granulocyte % (Auto) 0.4 % Immature Granulocyte # (Auto) 0.08 0.00-0.02 K/uL Red Blood Cell Morphology Unremarkable Sodium Level 136 136-145 mmol/L Potassium Level 4.3 3.5-5.1 mmol/L Chloride Level 108 98-107 mmol/L Carbon Dioxide Level 17 21-32 mmol/L Anion Gap 11.0 3-11 mmol/L Blood Urea Nitrogen 11 7-18 mg/dl Creatinine 1.40 0.60-1.20 mg/dl Est Creatinine Clear Calc Drug Dose 26.7 ml/min Estimated GFR () 42.5 Estimated GFR (Non- 36.7 BUN/Creatinine Ratio 7.7 10-20 Random Glucose 222 70-99 mg/dl Estimated Average Glucose 105 mg/dl Hemoglobin A1c 5.3 4.5-5.6 % Lactic Acid Level 6.2 0.4-2.0 mmol/L Calcium Level 7.0 8.5-10.1 mg/dl Phosphorus Level 3.6 2.5-4.9 mg/dl Magnesium Level 2.3 1.8-2.4 mg/dl Albumin 2.6 2.6 3.4-5.0 gm/dl Total Bilirubin 0.7 0.2-1 mg/dl Direct Bilirubin 0.3 0-0.2 mg/dl Aspartate Amino Transf (AST/SGOT) 45 15-37 U/L Alanine Aminotransferase (ALT/SGPT) 28 12-78 U/L Alkaline Phosphatase 53 45-117 U/L Total Creatine Kinase 917 26-192 U/L Troponin I 0.184 0-0.045 ng/ml Total Protein 4.1 6.4-8.2 gm/dl Lipase 313 73-393 U/L Procalcitonin 3.36 0-0.5 ng/ml Microbiology Results 03/24/17 Blood Culture, Received Pending 03/24/17 Blood Culture, Received Pending 03/24/17 MRSA DNA Surveillance Screen, Received Pending
[2017-03-24] MEDS ORDERED: NOREPINEPHRINE BIT INJ 8 MG in DEXTROSE 5% 500ML 500 ML IV PRN (05:05)
[2017-03-24 05:15] LABS: BASO ABS # 0.01 K/uL (0-0.2); COMPLETE YES; IG% 0.4 %; LYMPH % 4.2 %; LYMPH ABS # 0.87 K/uL (1.2-3.4); MONO % 10.5 %; NEUT % 84.9 %
[2017-03-24] MEDS ORDERED: hydrOXYzine HCL 10 MG TAB PO PRN (05:15)
[2017-03-24] MEDS ORDERED: DC PCA ONE (06:00)
[2017-03-24] MEDS ORDERED: HYDROmorphone INJ 0.5 MG/0.5 ML SYR IV PRN (06:00)
[2017-03-24] MEDS ORDERED: CEFEPIME IV 2,000 MG in DEXTROSE 5% 100ML 100 ML IV ONE (06:30)
[2017-03-24 06:40] LABS: ESTIMATED AVERAGE GLUCOSE 105 mg/dl; HA1C FLAG Normal (Normal)
[2017-03-24] MEDS ORDERED: CEFEPIME CONSULT ACTIVE PRN ×2 (06:45)
[2017-03-24] MEDS ORDERED: VANCOMYCIN CONSULT ACTIVE PRN (06:45)
[2017-03-24] MEDS: METRONIDAZOLE / NSS 500 MG in PREMIXED NSS 100 ML IV SCH ×3 (07:10→23:14)
[2017-03-24] MEDS: VANCOMYCIN INJ 1,250 MG in SODIUM CHLORIDE 0.9% 250ML 250 ML IV SCH (07:10)
--- NOTE | 2017-03-24 07:29 | DIAGNOSTIC IMAGING REPORT ---
CHEST ONE VIEW PORTABLE CLINICAL HISTORY: 76 years-old Female presenting with sick. TECHNIQUE: Portable semiupright AP view of the chest was obtained. COMPARISON: 02/24/2017. FINDINGS: Apparent enlargement of the cardiac silhouette, new from prior. Mildly low lung volumes in comparison to prior exam. Hazy hilar and right basilar opacity. No large effusion or pneumothorax. S-shaped scoliotic curvature of the spine with are slightly visualized fusion hardware in the lumbar spine. Gaseous distention of the stomach. IMPRESSION: 1. Apparent interval development of cardiomegaly. Correlation with echocardiography may be useful. 2. Perihilar and right basilar opacities. This could represent developing pulmonary edema, although infection and aspiration cannot be excluded. Electronically signed by: Aaron Rainey M.D. 03/24/2017 7:28 AM Dictated Date/Time: 03/24/2017 7:26 AM
[2017-03-24] MEDS: INSULIN ASPART 100 UNITS/ML 3 ML PEN SC SCH ×4 (07:39→21:00)
--- NOTE | 2017-03-24 07:55 | Anesthesiology Progress Note ---
Anesthesia Post Op Note Date & Time Mar 24, 2017 at 07:54 Vital Signs Pain Intensity: 0.0 Vital Signs Past 12 Hours Date Time Temp Pulse Resp B/P (MAP) Pulse Ox O2 Delivery O2 Flow Rate FiO2 03/24/17 07:00 36.5 123 22 117/63 (81) 97 Nasal Cannula 2.0 03/24/17 06:15 123 19 104/62 (76) 91 Nasal Cannula 2.0 03/24/17 06:10 126 28 111/54 (73) 93 Nasal Cannula 2.0 03/24/17 05:50 36.9 128 29 93/57 (69) 96 Nasal Cannula 2.0 03/24/17 05:40 36.9 130 18 95 2.0 03/24/17 04:39 36.9 129 18 72/58 (63) 95 Nasal Cannula 2.0 03/24/17 04:19 36.3 127 16 65/55 (58) 97 Nasal Cannula 2.0 03/24/17 03:49 130 63/55 (58) 03/24/17 03:15 128 64/45 (51) 03/24/17 02:25 135 92/59 (70) 03/24/17 02:23 130 87/58 (68) 96 Nasal Cannula 2.0 03/24/17 02:21 134 77/54 (62) 97 Nasal Cannula 2.0 03/24/17 02:20 128 60/50 (53) 03/24/17 02:09 36.4 131 24 63/56 (58) 98 Nasal Cannula 2.0 03/24/17 00:00 98 Nasal Cannula 2.0 03/24/17 00:00 130 28 96 Nasal Cannula 2.0 03/23/17 22:51 36.8 134 16 103/70 (81) 97 Nasal Cannula 2.0 03/23/17 21:15 127 Notes Mental Status: alert / awake / arousable, participated in evaluation Pt Amnestic to Procedure: Yes Nausea / Vomiting: improving with treatment Pain: adequately controlled Airway Patency, RR, SpO2: stable & adequate BP & HR: stable & adequate Hydration State: stable & adequate Anesthetic Complications: no major complications apparent
[2017-03-24] MEDS: ONDANSETRON INJ 2 MG/ML 2 ML VIAL IV PRN ×3 (08:00→19:35)
[2017-03-24] MEDS: OXYCODONE HCL IR 5 MG TAB (IMMEDIATE RELEASE) PO PRN ×3 (08:12→19:35)
[2017-03-24] MEDS ORDERED: CALCIUM GLUCONATE 10% 1,000 MG in SODIUM CHLORIDE 0.9% 50ML 50 ML IV SCH (08:45)
[2017-03-24] MEDS: PANTOprazole SOD 40 MG TAB PO SCH (08:56)
[2017-03-24] MEDS: SENNA 8.6 MG TAB PO SCH ×2 (08:56→21:36)
[2017-03-24] MEDS: CEROVITE ADV FORMULA TAB PO SCH (08:57)
[2017-03-24] MEDS: FLUTICASONE PROPIONATE NA SPR 16 GM BTL NAE SCH (08:57)
[2017-03-24] MEDS ORDERED: ASPIRIN 81 MG ECTAB PO SCH ×2 (09:00)
[2017-03-24] MEDS ORDERED: METOPROLOL SUCC 50MG EXT REL TAB PO SCH ×2 (09:00→21:00)
[2017-03-24] MEDS ORDERED: METOPROLOL SUCC 25MG EXT REL TAB PO SCH (09:00)
[2017-03-24] MEDS ORDERED: CONSULT PHARMACY SCH (09:00)
[2017-03-24 09:01] LABS: INR 1.3 (0.9-1.1); PARTIAL THROMBOPLASTIN RATIO 1.5; PROTHROMBIN TIME (PATIENT) 13.9 SECONDS (9.0-12.0)
[2017-03-24] MEDS ORDERED: METOPROLOL TARTRATE 1 MG/ML VIAL IV STA (09:23)
--- NOTE | 2017-03-24 09:26 | ECHOCARDIOGRAM REPORT ---
*NOTICE TO RECEIVING DEMOCRAT AGENCY This information is strictly Confidential and protected under [place] law. [place] law prohibits you from making any further disclosure of this information unless further disclosure is expressly permitted by the written consent of the person to whom it pertains or is authorized by law. A general authorization for the release of medical or other information is not sufficient for this purpose. Hospital accepts no responsibility if the information is made available to any other person, INCLUDING THE PATIENT. Interpretation Summary * Name: MAXIME CANTU Study Date: 03/24/2017 07:46 AM * Patient Location: [facility] [place]E110\S\1 * : 1940 (M/d/yyyy) Gender: Female Height: 62 in * Age: 76 yrs Ethnicity: [place] Weight: 107 lb * Ordering Physician: Clifford Vasquez * Referring Physician: Alexy Fernandes D.O. * Performed By: Amelia Grace RDCS * * Reason For Study: Hypotension, troponinemia * BSA: 1.5 m2 * The study was technically adequate. * Compared to prior study, changes are noted. * -- Conclusions -- * The left ventricle is hyperdynamic. * Ejection Fraction = >70 %. * The echo findings are consistent with hypertrophic cardiomyopathy. 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 * The septal thickness is 1.7cm. * The right ventricle is hyperdynamic. * There is systolic anterior motion of the mitral valve. * There is moderate mitral regurgitation. Procedure Details * A complete two-dimensional transthoracic echocardiogram was performed (2D, M-mode, Doppler and color flow Doppler). * The study was technically limited. * The study was technically difficult. * There were technical limitations due to patient'spoor positioning Left Ventricle * Patient is tachycardic during study. * The echo findings are consistent with hypertrophic cardiomyopathy. 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 * The septal thickness is 1.7cm. * Ejection Fraction = >70 %. * The left ventricle is hyperdynamic. * Septal motion is consistent with conduction abnormality. Right Ventricle * The right ventricle is normal size. * The right ventricle is hyperdynamic. Atria * The left atrium is moderately dilated. * Right atrial size is normal. * There is no evidence of atrial septal defect, but resolution does not allow assessment for a patent foramen ovale. Mitral Valve * There is moderate mitral annular calcification. * There is systolic anterior motion of the mitral valve. * There is no mitral valve stenosis. * There is moderate mitral regurgitation. Tricuspid Valve * The tricuspid valve is normal. * There is no tricuspid stenosis. * There is mild tricuspid regurgitation. * Doppler findings do not suggest pulmonary hypertension. Aortic Valve * The aortic valve is trileaflet. * Aortic stenosis is absent. * There is no significant aortic regurgitation. Pulmonic Valve * The pulmonary valve is not well seen, but the Doppler examination is normal without significant regurgitation or stenosis. Great Vessels * The aortic root is normal size. Pericardium/Pleural * There is no pericardial effusion. Great Vessels * Normal inferior vena cava size and collapsability with sniff indicates a normal right atrial pressure of 3 mmHg MMode 2D Measurements and Calculations IVSd 1.8 cm LVIDd 3.0 cm LVIDs 1.8 cm LVPWd 1.3 cm IVS/LVPW 1.4 FS 40.0 % EDV(Teich) 34.0 ml ESV(Teich) 9.4 ml EF(Teich) 72.3 % EDV(cubed) 26.1 ml ESV(cubed) 5.6 ml EF(cubed) 78.4 % LV mass(C)d 157.6 grams LV mass(C)dI 107.6 grams/m\S\2 SV(Teich) 24.6 ml SI(Teich) 16.8 ml/m\S\2 SV(cubed) 20.4 ml SI(cubed) 14.0 ml/m\S\2 Ao root diam 2.4 cm Ao root area 4.4 cm\S\2 ACS 1.4 cm asc Aorta Diam 2.7 cm LVOT diam 0.95 cm LVOT area 0.71 cm\S\2 LVAd ap4 17.6 cm\S\2 LVLd ap4 7.2 cm EDV(MOD-sp4) 34.7 ml EDV(sp4-el) 36.4 ml LVAs ap4 9.1 cm\S\2 LVLs ap4 6.1 cm ESV(MOD-sp4) 11.6 ml ESV(sp4-el) 11.4 ml EF(MOD-sp4) 66.6 % EF(sp4-el) 68.7 % LVAd ap2 14.2 cm\S\2 LVLd ap2 6.6 cm EDV(MOD-sp2) 25.7 ml EDV(sp2-el) 25.8 ml LVAs ap2 6.6 cm\S\2 LVLs ap2 4.3 cm ESV(MOD-sp2) 8.8 ml ESV(sp2-el) 8.4 ml EF(MOD-sp2) 65.8 % EF(sp2-el) 67.3 % LVLd %diff -8.11 % EDV(MOD-bp) 30.4 ml LVLs %diff -41.76 % ESV(MOD-bp) 11.7 ml EF(MOD-bp) 61.4 % SV(MOD-sp4) 23.1 ml SI(MOD-sp4) 15.8 ml/m\S\2 SV(MOD-sp2) 16.9 ml SI(MOD-sp2) 11.6 ml/m\S\2 SV(MOD-bp) 18.7 ml SI(MOD-bp) 12.8 ml/m\S\2 SV(sp4-el) 25.0 ml SI(sp4-el) 17.1 ml/m\S\2 SV(sp2-el) 17.4 ml SI(sp2-el) 11.8 ml/m\S\2 Doppler Measurements and Calculations MV E max melonie 227.5 cm/sec MV dec time 0.11 sec Ao V2 max 341.0 cm/sec Ao max PG 46.5 mmHg Ao max PG (full) 33.7 mmHg ANA(V,A) 0.37 cm\S\2 ANA(V,D) 0.37 cm\S\2 LV V1 max PG 12.9 mmHg LV V1 max 179.3 cm/sec MR max melonie 678.7 cm/sec MR max PG 185.1 mmHg MR mean melonie 514.8 cm/sec MR mean PG 119.2 mmHg MR VTI 138.1 cm PA V2 max 81.4 cm/sec PA max PG 2.7 mmHg PA acc slope 662.3 cm/sec\S\2 PA acc time 0.09 sec PI end-d melonie 164.4 cm/sec TR max melonie 268.3 cm/sec PA pr(Accel) 37.8 mmHg
--- NOTE | 2017-03-24 09:53 | Progress Note ---
Internal Med Progress Note Date of Service: Mar 24, 2017. Provider Documentation: SUBJECTIVE: The patient was seen and examined Was transferred to ICU due to ongoing tachycardia ,hypotension and deterioration of general condition Complains of some abdominal pain and palpitation this AM in ICU Denies any CP OBJECTIVE: Vital Signs-as noted below Exam: General-Very pale and in moderate distress at rest Eyes-Normal; ENT-normal Neck-supple Lungs-Decreased breath sound bilaterally at the bases Heart-Regular Abdomen-Benign,mildly tender LLQ and epigastrium Extremities-No edema Neuro-AAOx3 Generally weak and lethargic Lab data as noted below. ASSESSMENT & PLAN: Hypotension Causes could be Hypovolemia,Blood loss,sepsis and or Cardiac Could be the cause of Increased Lactate and Procalcitonin Started on Broad spectrum antibiotics Did not require any Pressors yet Volume replacement with NS and Blood as needed Monitor in ICU Persistent Tachycardia/HOCM Could be secondary as mentioned earlier Can be primary due to HOCM Small dose of BB May need Cardiology evaluation Serial Martina to R/O any ACS ECHO::The left ventricle is hyperdynamic. * Ejection Fraction = >70 %. * The echo findings are consistent with hypertrophic cardiomyopathy. 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 * The septal thickness is 1.7cm. * The right ventricle is hyperdynamic. * There is systolic anterior motion of the mitral valve. * There is moderate mitral regurgitation. Acute blood loss anemia with Abdominal pain Her hemoglobin dropped to 6.5 from 14.7 prior to surgery. She has had about 1800 mL of blood loss during the procedure, she got 2 units of blood transfusion. Getting 2 more Units this morning CT of the Abdomen to evaluate LLQ pain Status post lumbar decompression and fusion. The management will be as per orthopedic surgeon. Rheumatoid arthritis. She has been on prednisone 5 mg daily, continue with that; and methotrexate will be continued as an outpatient. Got stress dose of Steroid Hyperlipidemia. Continue with statin. Gastrointestinal prophylaxis, Protonix. Deep venous thrombosis prophylaxis as per ortho. Discussed with the and the patient in detailed Answered all of their questions Vital Signs: Date Time Temp Pulse Resp B/P (MAP) Pulse Ox O2 Delivery O2 Flow Rate FiO2 03/24/17 09:00 36.5 124 21 94/57 98 2.0 03/24/17 08:45 36.5 125 20 84/56 95 2.0 03/24/17 08:00 36.5 123 20 104/55 (71) 98 Nasal Cannula 2.0 03/24/17 07:00 36.5 123 22 117/63 (81) 97 Nasal Cannula 2.0 03/24/17 06:15 123 19 104/62 (76) 91 Nasal Cannula 2.0 03/24/17 06:10 126 28 111/54 (73) 93 Nasal Cannula 2.0 03/24/17 05:50 36.9 128 29 93/57 (69) 96 Nasal Cannula 2.0 03/24/17 05:40 36.9 130 18 95 2.0 03/24/17 04:39 36.9 129 18 72/58 (63) 95 Nasal Cannula 2.0 03/24/17 04:19 36.3 127 16 65/55 (58) 97 Nasal Cannula 2.0 03/24/17 03:49 130 63/55 (58) 03/24/17 03:15 128 64/45 (51) 03/24/17 02:25 135 92/59 (70) 03/24/17 02:23 130 87/58 (68) 96 Nasal Cannula 2.0 03/24/17 02:21 134 77/54 (62) 97 Nasal Cannula 2.0 03/24/17 02:20 128 60/50 (53) 03/24/17 02:09 36.4 131 24 63/56 (58) 98 Nasal Cannula 2.0 03/24/17 00:00 98 Nasal Cannula 2.0 03/24/17 00:00 130 28 96 Nasal Cannula 2.0 03/23/17 22:51 36.8 134 16 103/70 (81) 97 Nasal Cannula 2.0 03/23/17 21:15 127 03/23/17 19:50 37.4 117 16 95/61 (72) 100 Nasal Cannula 4.0 03/23/17 18:29 36.2 118 16 90/65 (73) 100 Nasal Cannula 4.0 03/23/17 17:27 36.6 104 16 90/63 (72) 100 Nasal Cannula 4.0 03/23/17 17:00 36.4 96 12 96/66 (76) 100 Nasal Cannula 4.0 03/23/17 16:30 Nasal Cannula 4.0 03/23/17 16:30 Nasal Cannula 4.0 03/23/17 16:30 36.5 90 12 103/72 (82) 100 Nasal Cannula 4.0 03/23/17 16:00 36.2 90 16 131/76 100 Oxymask 10 03/23/17 15:50 36.2 91 16 133/62 100 Oxymask 10 03/23/17 15:40 36.2 88 16 111/65 100 Oxymask 10 03/23/17 15:30 36.2 85 16 99/65 100 Oxymask 10 03/23/17 15:20 36.1 85 16 103/67 100 Oxymask 10 03/23/17 15:10 36.2 89 16 94/52 100 Oxymask 10 03/23/17 15:00 89 16 78/47 100 Oxymask 10 03/23/17 14:51 35.9 92 14 76/44 98 10.0 03/23/17 14:50 91 16 76/44 100 Oxymask 10 03/23/17 14:40 90 16 89/54 100 Oxymask 10 03/23/17 14:30 83 16 56/47 100 Oxymask 10 03/23/17 14:20 88 16 90/47 100 Oxymask 10 03/23/17 14:10 100 12 116/82 100 Oxymask 10 03/23/17 14:00 104 12 117/65 100 Oxymask 10 03/23/17 13:50 112 12 114/71 100 Oxymask 10 03/23/17 13:40 36.1 110 12 110/76 100 Oxymask 10 Lab Results: Results Past 24 Hours Test 03/23/17 14:12 03/23/17 19:03 03/23/17 21:50 03/24/17 02:28 Range/Units Hemoglobin 6.5 10.8 12.0-16.0 g/dL Hematocrit 19.1 30.0 37-47 % Sodium Level 138 136-145 mmol/L Potassium Level 4.6 3.5-5.1 mmol/L Chloride Level 109 98-107 mmol/L Carbon Dioxide Level 21 21-32 mmol/L Anion Gap 8.0 3-11 mmol/L Blood Urea Nitrogen 10 7-18 mg/dl Creatinine 0.94 0.60-1.20 mg/dl Est Creatinine Clear Calc Drug Dose 39.8 ml/min Estimated GFR () 68.8 Estimated GFR (Non- 59.3 BUN/Creatinine Ratio 10.5 10-20 Random Glucose 159 70-99 mg/dl Lactic Acid Level 2.7 0.4-2.0 mmol/L Calcium Level 7.8 8.5-10.1 mg/dl Magnesium Level 1.5 1.8-2.4 mg/dl Thyroid Stimulating Hormone (TSH) 1.010 0.300-4.500 uIu/ml Bedside Glucose 293 70-90 mg/dl Test 03/24/17 03:40 03/24/17 05:08 03/24/17 08:42 Range/Units White Blood Count 20.54 4.8-10.8 K/uL Red Blood Count 2.52 4.2-5.4 M/uL Hemoglobin 8.1 12.0-16.0 g/dL Hematocrit 22.3 37-47 % Mean Corpuscular Volume 88.5 80-100 fL Mean Corpuscular Hemoglobin 32.1 25-34 pg Mean Corpuscular Hemoglobin Concent 36.3 32-36 g/dl Platelet Count 119 130-400 K/uL Mean Platelet Volume 9.8 7.4-10.4 fL Neutrophils (%) (Auto) 84.9 % Lymphocytes (%) (Auto) 4.2 % Monocytes (%) (Auto) 10.5 % Eosinophils (%) (Auto) 0.0 % Basophils (%) (Auto) 0.0 % Neutrophils # (Auto) 17.43 1.4-6.5 K/uL Lymphocytes # (Auto) 0.87 1.2-3.4 K/uL Monocytes # (Auto) 2.15 0.11-0.59 K/uL Eosinophils # (Auto) 0.00 0-0.5 K/uL Basophils # (Auto) 0.01 0-0.2 K/uL RDW Standard Deviation 52.1 36.4-46.3 fL RDW Coefficient of Variation 16.1 11.5-14.5 % Immature Granulocyte % (Auto) 0.4 % Immature Granulocyte # (Auto) 0.08 0.00-0.02 K/uL Red Blood Cell Morphology Unremarkable Sodium Level 136 136-145 mmol/L Potassium Level 4.3 3.5-5.1 mmol/L Chloride Level 108 98-107 mmol/L Carbon Dioxide Level 17 21-32 mmol/L Anion Gap 11.0 3-11 mmol/L Blood Urea Nitrogen 11 7-18 mg/dl Creatinine 1.40 0.60-1.20 mg/dl Est Creatinine Clear Calc Drug Dose 26.7 ml/min Estimated GFR () 42.5 Estimated GFR (Non- 36.7 BUN/Creatinine Ratio 7.7 10-20 Random Glucose 222 70-99 mg/dl Estimated Average Glucose 105 mg/dl Hemoglobin A1c 5.3 4.5-5.6 % Lactic Acid Level 6.2 5.2 0.4-2.0 mmol/L Calcium Level 7.0 8.5-10.1 mg/dl Phosphorus Level 3.6 2.5-4.9 mg/dl Magnesium Level 2.3 1.8-2.4 mg/dl Albumin 2.6 2.6 3.4-5.0 gm/dl Total Bilirubin 0.7 0.2-1 mg/dl Direct Bilirubin 0.3 0-0.2 mg/dl Aspartate Amino Transf (AST/SGOT) 45 15-37 U/L Alanine Aminotransferase (ALT/SGPT) 28 12-78 U/L Alkaline Phosphatase 53 45-117 U/L Total Creatine Kinase 917 26-192 U/L Troponin I 0.184 0.293 0-0.045 ng/ml Total Protein 4.1 6.4-8.2 gm/dl Lipase 313 73-393 U/L Procalcitonin 3.36 0-0.5 ng/ml Prothrombin Time 13.9 9.0-12.0 SECONDS Prothromb Time International Ratio 1.3 0.9-1.1 Activated Partial Thromboplast Time 38.6 21.0-31.0 SECONDS Partial Thromboplastin Ratio 1.5 Microbiology Results 03/24/17 Blood Culture, Received Pending 03/24/17 Blood Culture, Received Pending 03/24/17 MRSA DNA Surveillance Screen - Final, Complete Specimen Negative for MRSA by DNA Probe
--- NOTE | 2017-03-24 10:32 | Pharmacy Progress Note ---
Glycemic Control Intl Consult Date of Service Mar 24, 2017. Scope Glycemic Pharmacist consulted by Dr Jones on 03/24/17 for glycemic control and to write orders per [facility] inpatient glycemic control protocol Objective Weight (Kilograms): 48.800 Accuchecks BSG (last 24hrs): Test 03/23/17 21:50 03/24/17 02:28 03/24/17 03:40 Random Glucose 159 mg/dl (70-99) 222 mg/dl (70-99) Bedside Glucose 293 mg/dl (70-90) Laboratory Data (last 24hrs) Test 03/23/17 21:50 03/24/17 03:40 Anion Gap 8.0 mmol/L 11.0 mmol/L BUN/Creatinine Ratio 10.5 7.7 Blood Urea Nitrogen 10 mg/dl 11 mg/dl Creatinine 0.94 mg/dl 1.40 mg/dl Potassium Level 4.6 mmol/L 4.3 mmol/L Sodium Level 138 mmol/L 136 mmol/L Hemoglobin A1c 5.3 % White Blood Count 20.54 K/uL Red Blood Count 2.52 M/uL Hemoglobin 8.1 g/dL Hematocrit 22.3 % Mean Corpuscular Volume 88.5 fL Mean Corpuscular Hemoglobin 32.1 pg Mean Corpuscular Hemoglobin Concent 36.3 g/dl Platelet Count 119 K/uL Mean Platelet Volume 9.8 fL Neutrophils (%) (Auto) 84.9 % Lymphocytes (%) (Auto) 4.2 % Monocytes (%) (Auto) 10.5 % Eosinophils (%) (Auto) 0.0 % Basophils (%) (Auto) 0.0 % Neutrophils # (Auto) 17.43 K/uL Lymphocytes # (Auto) 0.87 K/uL Monocytes # (Auto) 2.15 K/uL Eosinophils # (Auto) 0.00 K/uL Basophils # (Auto) 0.01 K/uL HbA1c Test 03/24/17 03:40 Hemoglobin A1c 5.3 % (4.5-5.6) Recent Pertinent Medications Outpatient Anti-diabetic Regimen: * No prior dx of DM * A1c = 5.3% 03/24/17 Risk Factors for Insulin Resistance: * Steroids: Dexamethasone 6mg IV Q 8 hrs x 3 post-op doses * Infection: possible sepsis; empiric cefepime, metronidazole + vancomycin * Pressors: Norepinephrine ordered but has not been required * Recent Surgery: POD #1 s/p lumbar decompression / fusion * Diet: ordered Clear Liquid diet Assessment & Plan ASSESSMENT: 03/24/17 * Patient underwent elective lumbar decompression / fusion yesterday, however she did experience significant blood loss leading to fall in H/H, hypotension, tachycardia and SOB. Transfusions were ordered overnight along w/ fluid resuscitation and she was transferred to ICU. * She has no prior dx of diabetes and recent A1c 5.3 consistent with this * She did become hyperglycemic overnight due to high dose steroids along with surgical stressors + stress of hemorrhagic shock * Fasting BSG this AM 193 and pt ordered a diet. Will initiate basal insulin this AM along with aggressive Novolog correction and prandial coverage - based upon moderate/severe stress and weight. PLAN FOR INPATIENT GLYCEMIC CONTROL: * Lantus 15 units SQ x 1 this AM * Novolog SQ ACHS and at 0000 + 0400 tonight * Correction factor 25 mg/dl/unit * Carb ratio 1 unit per 10 grams CHO consumed * Goal range Low 140 mg/dL - High 180 mg/dL * Reevaluate insulin requirements tomorrow as the effects of steroids begin to dissipate * Please note that the plan above was derived based on current level of insulin resistance and hospital stress. These recommendations are appropriate for inpatient admission only. Plan of care upon discharge will need to be reassessed to avoid potential outpatient hypo/hyperglycemia. Thank you.
[2017-03-24 11:23] LABS: URINE APPEARANCE CLEAR (CLEAR); URINE BILIRUBIN NEG (NEG); URINE COLOR YELLOW; URINE EPITHELIAL CELL AUTO >30 /lpf (0-5); URINE NITRITE NEG (NEG); UROBILINOGEN NEG (NEG); ZZUR CULT IF INDIC CLEAN CATCH NO
[2017-03-24 11:26] LABS: MANUAL MICROSCOPIC REQUIRED? NO; REVIEW REQ? YES
[2017-03-24 11:37] LABS: URINE PATH CASTS 0-3 GRANULAR CASTS /lpf (0)
[2017-03-24 12:41] LABS: HEMATOCRIT 33.2 % (37-47); MEAN CELL VOLUME 87.4 fL (80-100); MEAN CORPUSCULAR HEMOGLOBIN 30.3 pg (25-34); MEAN CORPUSCULAR HGB CONC 34.6 g/dl (32-36); MEAN PLATELET VOLUME 10.1 fL (7.4-10.4); PLATELET COUNT 74 K/uL (130-400); WHITE BLOOD COUNT 18.08 K/uL (4.8-10.8)
--- NOTE | 2017-03-24 12:43 | DIAGNOSTIC IMAGING REPORT ---
ABD/PELVIS NO IV OR ORAL CONT CLINICAL HISTORY: 76 years-old Female presenting with abd pain. TECHNIQUE: Multidetector CT of the abdomen and pelvis was performed without the use of intravenous contrast. IV contrast: None. A dose lowering technique was used consistent with the principles of ALARA (as low as reasonably achievable). COMPARISON: 02/27/2017. CT DOSE (mGy.cm): The estimated cumulative dose is 259.57 mGy.cm. FINDINGS: Base Loader topogram: Extensive posterior lumbosacral fusion hardware. Levocurvature of the lumbar spine. Lung bases: Dependent consolidation with associated volume loss new from prior more extensively on the left with peribronchial vascular consolidation on the left. Pectus deformity with resultant shift of the heart leftward. Mitral annular calcification. No pericardial effusion. Trace bilateral pleural effusions. Liver: Normal morphology. Normal density. Biliary: Central intrahepatic and extrahepatic biliary ductal prominence allowing for noncontrast technique. This is unchanged from prior exam. Distended gallbladder containing hyperdense material, likely sludge. No apparent gallbladder wall thickening allowing for noncontrast technique. Pancreas: Moderate to severe parenchymal atrophy. Spleen: Normal. Adrenal glands: Normal. Kidneys and ureters: No nephrolithiasis. No hydronephrosis. Ureters poorly visualized. Bladder: Incompletely evaluated secondary to underdistention. Mild circumferential bladder wall thickening may be result of under distention. Intraluminal gas noted likely related to the presence of a Lazo catheter. Pelvic organs: Uterus poorly visualized with noncontrast technique. Ovaries not well visualized. Bowel: Diverticulosis of the sigmoid colon with wall thickening, likely chronic diverticular disease given the absence of pericolonic inflammatory change. Mild apparent colonic wall thickening at the mid transverse colon without significant surrounding inflammatory changes. Few diverticula may be noted in this region. No bowel obstruction. Gaseous distention of the stomach. Mild fat stranding surrounding the descending portion of the duodenum. No extraluminal gas in the retroperitoneum. Peritoneal cavity: Trace retroperitoneal free fluid along the duodenum. More significant extraperitoneal fluid noted in the left hemipelvis, which may be high density. Small amount of free fluid in the pelvis. Vasculature: Atherosclerosis of the normal caliber abdominal aorta. Lymph nodes: No gross lymphadenopathy allowing for noncontrast technique. Abdominal wall: Scattered calcifications in the buttocks likely injection granulomas. Musculoskeletal: Interval bilateral transpedicular screw and saray fixation of the lumbosacral spine. Previously noted compression fracture of the L4 vertebral body extending into the anterior aspect of the left L4 pedicle, essentially unchanged from prior. Previously 4 mm of retropulsion of the L4 vertebral body into the spinal canal, unchanged. Levocurvature of the lumbar spine accompanied by multilevel degenerative disease. IMPRESSION: 1. Interval development of left extraperitoneal hemorrhage most likely a postsurgical complication status post lumbosacral spinal fusion. 2. Diverticulosis with chronic diverticular disease of the sigmoid colon. No convincing evidence of acute diverticulitis. 3. Small pelvic ascites. 4. Trace retroperitoneal fluid and fat stranding along the descending portion of duodenum. No evidence of perforation. This may possibly represent free fluid or hemorrhage tracking superiorly from the extraperitoneal pelvic space. 5. Distended gallbladder containing sludge. No convincing evidence of cholecystitis. If there is clinical concern for this diagnosis, ultrasound is recommended. 6. Extensive dependent atelectasis or prominently on the left. Electronically signed by: Aaron Rainey M.D. 03/24/2017 12:42 PM Dictated Date/Time: 03/24/2017 12:25 PM
[2017-03-24] MEDS ORDERED: [UNRECOGNIZED DRUG - REMARK] SCH (14:00)
[2017-03-24] MEDS ORDERED: NURSING VERBAL MED ORDER ONE (15:00)
[2017-03-24] MEDS: SODIUM CHLORIDE 0.9% 1000ML 1,000 ML IV SCH (15:16)
--- NOTE | 2017-03-24 15:25 | Progress Note ---
Progress Note Date of Service Mar 24, 2017. Progress Note Patient's complaining of back pain. States it her leg pains improved. She overall is relatively comfortable. Number conversation she's denying any shortness of breath. On exam she is good strength testing lower extremities. Is alert noted. Assessment status post multilevel lumbar decompression fusion replant this time continue to monitor closely PACU. Begin transfers to chair 1 medically stable.
--- NOTE | 2017-03-24 15:31 | Pharmacy Progress Note ---
Pharmacy Abx Initial Consult Date of Service Mar 24, 2017. Pharmacy Dosing Scope Date of Consult: 03/24/17 Consultation requested by: Dr. Cobb Pharmacy is consulted to initiate VANCOMYCIN and CEFEPIME IV therapy, order appropriate labs and adjust drug dose/frequency. Subjective The patient is a 76 year old female admitted on Mar 23, 2017 at 07:55 for elective lumbar decompression/fusion. Empiric abx therapy initiated overnight for possible sepsis due to hypotension, tachycardia and SOB. Objective Height (Feet): 5 Height (Inches): 2 Weight (Kilograms): 48.800 Vital Signs (Past 12Hrs) Vital Signs Past 12 Hours Date Time Temp Pulse Resp B/P (MAP) Pulse Ox O2 Delivery O2 Flow Rate FiO2 03/24/17 14:00 36.7 109 21 117/66 (83) 95 Nasal Cannula 03/24/17 12:00 97 Nasal Cannula 2.0 03/24/17 11:15 36.6 111 18 103/61 94 2.0 03/24/17 11:00 36.5 114 10 103/61 97 2.0 03/24/17 11:00 103/61 (75) 03/24/17 10:30 36.5 115 18 110/66 96 2.0 03/24/17 10:14 36.6 109 15 120/59 99 2.0 03/24/17 10:00 120/59 (79) 03/24/17 10:00 36.6 103 18 120/59 100 2.0 03/24/17 09:54 120 111/72 03/24/17 09:30 36.5 119 20 111/72 100 2.0 03/24/17 09:00 36.5 124 21 94/57 98 2.0 03/24/17 09:00 94/57 (69) 03/24/17 08:45 84/57 (66) 03/24/17 08:45 36.5 125 20 84/56 95 2.0 03/24/17 08:00 36.5 123 20 104/55 (71) 98 Nasal Cannula 2.0 03/24/17 08:00 97 Nasal Cannula 2.0 03/24/17 07:00 36.5 123 22 117/63 (81) 97 Nasal Cannula 2.0 03/24/17 06:15 123 19 104/62 (76) 91 Nasal Cannula 2.0 03/24/17 06:10 126 28 111/54 (73) 93 Nasal Cannula 2.0 03/24/17 05:50 36.9 128 29 93/57 (69) 96 Nasal Cannula 2.0 03/24/17 05:40 36.9 130 18 95 2.0 03/24/17 04:39 36.9 129 18 72/58 (63) 95 Nasal Cannula 2.0 03/24/17 04:19 36.3 127 16 65/55 (58) 97 Nasal Cannula 2.0 03/24/17 03:49 130 63/55 (58) 03/24/17 03:15 128 64/45 (51) Lab Results (24Hrs) Laboratory Tests (24 Hours) Test 03/24/17 03:40 03/24/17 05:08 03/24/17 11:57 White Blood Count 20.54 K/uL (4.8-10.8) H 18.08 K/uL (4.8-10.8) H Red Blood Count 2.52 M/uL (4.2-5.4) L Hemoglobin 8.1 g/dL (12.0-16.0) L Hematocrit 22.3 % (37-47) L Mean Corpuscular Volume 88.5 fL (80-100) Mean Corpuscular Hemoglobin 32.1 pg (25-34) Mean Corpuscular Hemoglobin Concent 36.3 g/dl (32-36) H Platelet Count 119 K/uL (130-400) L Mean Platelet Volume 9.8 fL (7.4-10.4) Neutrophils (%) (Auto) 84.9 % Lymphocytes (%) (Auto) 4.2 % Monocytes (%) (Auto) 10.5 % Eosinophils (%) (Auto) 0.0 % Basophils (%) (Auto) 0.0 % Neutrophils # (Auto) 17.43 K/uL (1.4-6.5) H Lymphocytes # (Auto) 0.87 K/uL (1.2-3.4) L Monocytes # (Auto) 2.15 K/uL (0.11-0.59) H Eosinophils # (Auto) 0.00 K/uL (0-0.5) Basophils # (Auto) 0.01 K/uL (0-0.2) Procalcitonin 3.36 ng/ml (0-0.5) H Total Creatine Kinase 917 U/L (26-192) H Lactic Acid Level 3.4 mmol/L (0.4-2.0) *H Micro Results Date/Time Source Procedure Growth Status 03/24/17 05:08 Blood Blood Culture Pending Received 03/24/17 05:08 Blood Blood Culture Pending Received 03/24/17 05:50 Nasal MRSA DNA Surveillance Screen - Final Specimen Negative for MRSA by DNA Probe Complete Assessment & Plan Assessment 03/24/17 * Empiric therapy started for potential septic shock following recent lumbar surgery - however ABLA, hemorrhagic shock likely cause of hypotension, tachycardia and SOB overnight. Lactic acid and procalcitonin were drawn and also elevated. * Pt appears to have CHARITO based upon latest labs * Pt is receiving transfusion therapy and IVF resuscitation Plan Vancomycin IV * Loading dose: 1250 mg (26 mg/kg) x 1 given this AM * Will check random vancomycin level w/ AM labs as I estimate the patient's vanco half-life to be 24+ hours * Plan is to redose the patient when level is between 15-20mcg/mL * P'kinetic estimates: half-life ~25 hours, Vd 0.7L/kg, Larry 0.027 hr-1 Cefepime * eCrCl ~ 11-29cc/min: 2gm IV Q 24 hours is highest recommended dose for this level of renal fxn. Pharmacy will continue to follow and will adjust dose/frequency as necessary. Thank you.
--- NOTE | 2017-03-24 18:06 | Critical Care Consultation ---
Critical Care Consultation Date of Consultation: Mar 24, 2017. Attending Physician: Alexy Fernandes D.O. Reason for Consultation: Acute blood loss anemia. Hypovolemic shock. History of Present Illness Patient is a 76-year-old female with a significant past medical history of rheumatoid arthritis, osteoarthritis, hyperlipidemia, and hypertrophic obstructive cardiomyopathy who had extensive laminectomy with fusion performed yesterday by Dr. Fernandes. Overnight, the patient was found to be hypotensive and tachycardic. She was reevaluated and found to be tachycardic and hypotensive again on morning rounding. She had received 2 units PRBCs status post laminectomy. The patient was willing cold and nauseated as well as some LEFT lower quadrant abdominal pain. The patient received IV Decadron for the concern of adrenal insufficiency as well as IV fluids. She was brought to the ICU and initially was ordered Levophed per hospitalist team, however upon arrival to the ICU her blood pressure did seem to increase into the 90's systolically. Her heart rate was elevated in the 130s. The patient does have a significant past medical history of HOCM. He is evaluated by cardiology in the outpatient setting through the [facility]. Patient currently complains of some mild discomfort to the LEFT lower quadrant rating her pain a 4 /10. She also describes some mild low back discomfort. On evaluation, the patient is extremely pale. She is resting comfortably. The patient offers no significant complaints at this point. She reports feeling somewhat nauseated, however. She denies any headaches, dizziness, blurry vision , double vision, slurred speech, facial droop, unilateral weakness/numbness, chest pain, palpitations, short of breath, hematemesis, hematochezia, melena, hematuria, or dysuria. Patient does report a history of tremors secondary to medication reaction. She reports this is unchanged at this time. Past Medical/Surgical History Rheumatoid arthritis Hypertrophic obstructive cardiomyopathy Obsessive-compulsive disorder History of diaphragmatic hernia GERD Hyperlipidemia Irritable bowel syndrome Family History Diabetes mellitus Heart disease Hypertension Social History Smoking Status: Never Smoker Smokeless Tobacco Use: No Alcohol Use: none Drug Use: none Marital Status: Housing Status: lives with significant other Occupation Status: retired Allergies Coded Allergies: BEE STING (Verified Allergy, Intermediate, BEE/WASP-NAUSEA AND DIZZINESS, 03/23/17) Penicillins (Verified Allergy, Intermediate, RASH (PER PT, WAS A LONG TIME AGO)AMOXICILLIN AND PCN, 03/23/17) Esomeprazole (Verified Allergy, Mild, NAUSEA VOMITING, 03/23/17) Pt does not remember this Antipyrine (Verified Allergy, Unknown, RASH AND BLISTERS, 03/23/17) Pt reports does not remember this Benzocaine (Verified Allergy, Unknown, UNKNOWN, 02/27/17) Hydroxychloroquine (Verified Allergy, Unknown, UNKNOWN, 03/23/17) Misoprostol (Verified Allergy, Unknown, UNKNOWN, 02/27/17) Phenylephrine (Verified Allergy, Unknown, UNKNOWN, 03/23/17) Pseudoephedrine (Verified Allergy, Unknown, UNKNOWN, 03/23/17) Serotonin Reuptake Inhibitors (Verified Allergy, Unknown, UNKNOWN, 03/23/17 ) Sulfa Antibiotics (Verified Allergy, Unknown, UNKNOWN, 03/23/17) Citalopram (Verified Adverse Reaction, Mild, GI UPSET, 03/23/17) Clarithromycin (Verified Adverse Reaction, Mild, GI UPSET, 03/23/17) Home Medications Scheduled Aspirin (Aspirin), 81 MG PO DAILY Atorvastatin (Lipitor), 10 MG PO QPM Calcium Carbonate-Vitamin D (Calcium/Vitamin D), 1 CAP PO BID Cetirizine (Zyrtec), 10 MG PO QPM Cholecalciferol (Vitamin D 1000 Unit), 1,000 INTER.UNIT PO QAM Fluticasone Propionate (Nasal) (Flonase Allergy Relief), 2 SPRAYS SAKINA DAILY Folic Acid (Folic Acid), 1,600 MCG PO 6XWK Melatonin-Pyridoxine (Melatonin), 1.5 TABLET PO HS Methotrexate (Methotrexate), 6 TABLETS PO WK Methylcellulose (Laxative) (Citrucel Fiber Laxative), 1 DOSE PO DAILY Metoprolol Succ (Toprol Xl) (Toprol-Xl), 100 MG PO DAILY Multivitamins/Minerals (Mvi With Minerals), 1 TAB PO DAILY [place]-3 Fatty Acids (Fish Oil), 1,200 MG PO DAILY Pantoprazole (Protonix), 40 MG PO QAM Polyethylene Glycol-Propylene (Systane Ultra), 1 DROPS OP QAM Prednisone (Prednisone), 5 MG PO QAM Senna (Senokot), 1 TAB PO BID Scheduled PRN Acetaminophen (Tylenol), 1,000 MG PO TID PRN for Pain Ciprofloxacin-Dexamethasone (Ciprodex Otic), 4 DROPS OT BID PRN for Documentation Epinephrine (Epipen 2-Juliocesar), SQ for ALLERGIC REACTION Lorazepam (Ativan), 0.5 MG PO TID PRN for Anxiety/Agitation Tramadol (Ultram), 50 MG PO Q6H PRN for Pain Current Inpatient Medications Current Inpatient Medications Medications (Trade) Dose Ordered Sig/Taylor Route Start Time Stop Time Status Last Admin Dose Admin Promethazine HCl 12.5 mg/Sodium Chloride 50.5 ml @ 202 mls/hr Q6H PRN IV 03/23/17 13:15 04/22/17 13:14 Ondansetron HCl (Zofran Inj) 4 mg Q6H PRN IV 03/23/17 13:15 04/22/17 13:14 03/24/17 12:39 4 MG Metoclopramide HCl (Reglan Inj) 10 mg Q6H PRN IV 03/23/17 13:15 04/22/17 13:14 03/23/17 18:43 10 MG Lorazepam (Ativan Tab) 0.5 mg Q8H PRN PO 03/23/17 13:15 04/22/17 13:14 Lorazepam 0.5 mg/ Syringe 0.25 ml @ 1 mls/min Q8H PRN IV 03/23/17 13:15 04/22/17 13:14 Polyethylene (Miralax Powder Packet) 17 gm Q6 PO 03/25/17 06:00 04/24/17 05:59 Bisacodyl (Dulcolax Supp) 10 mg DAILY PRN ND 03/23/17 13:15 04/22/17 13:14 Magnesium Hydroxide (Milk Of Magnesia Susp) 30 ml DAILY PRN PO 03/23/17 13:15 04/22/17 13:14 Oxycodone HCl (Roxicodone Immediate Rel Tab) 5-10mg prn moderate to sev... Q4H PRN PO 03/24/17 06:00 04/07/17 05:59 03/24/17 13:01 10 MG Acetaminophen (Tylenol Tab) 1,000 mg Q8H PRN PO 03/23/17 13:15 04/22/17 13:14 Senna/Docusate Sodium (Senokot S Tab) 2 tab HS PO 03/23/17 21:00 04/22/17 20:59 03/23/17 21:05 2 TAB Sodium Biphosphate/ Sodium Phosphate (Fleet Enema) 132 ml ONE PRN ND 03/23/17 13:15 04/22/17 13:14 Al Hydroxide/Mg Hydroxide (Maalox Susp) 30 ml Q6H PRN PO 03/23/17 13:15 04/22/17 13:14 03/24/17 06:39 30 ML Famotidine (Pepcid Tab) 20 mg Q12 PRN PO 03/23/17 13:15 04/22/17 13:14 Cetirizine HCl (zyrTEC TAB) 10 mg QPM PO 03/23/17 21:00 04/22/17 20:59 03/23/17 21:04 10 MG Fluticasone Propionate (Flonase Nasal [place]) 2 sprays DAILY SAKINA 03/24/17 09:00 04/23/17 08:59 03/24/17 08:57 2 SPRAYS Pantoprazole Sodium (Protonix Tab) 40 mg QAM PO 03/24/17 09:00 04/23/17 08:59 03/24/17 08:56 40 MG Senna (Senokot Tab) 8.6 mg BID PO 03/23/17 21:00 04/22/17 20:59 03/24/17 08:56 8.6 MG Tramadol HCl (Ultram Tab) 50 mg Q6H PRN PO 03/24/17 06:00 04/23/17 05:59 Hydromorphone HCl (Dilaudid Inj) 0.5 mg Q3H PRN IV 03/23/17 22:45 04/06/17 22:44 Multivitamins/ Minerals (Multivitamin W/ Minerals Tab) 1 tab DAILY PO 03/24/17 09:00 04/23/17 08:59 03/24/17 08:57 1 TAB Insulin Glargine (Lantus Solostar Pen) 10 units DAILY SC 03/25/17 09:00 04/24/17 08:59 Insulin Aspart (novoLOG ASPART) SLIDING SCALE If C... ACHS SC 03/24/17 06:45 04/23/17 07:59 03/24/17 11:33 1 UNITS Glucose (Glucose 40% Gel) 15-30 GRAMS 15 GRAMS... UD PRN PO 03/24/17 03:00 04/23/17 02:59 Glucose (Glucose Chew Tab) 4-8 Tablets 4 Tabl... UD PRN PO 03/24/17 03:00 04/23/17 02:59 Dextrose (Dextrose 50% 50ML Syringe) 25-50ML OF 50% DW IV FOR... UD PRN IV 03/24/17 03:00 04/23/17 02:59 Glucagon (Glucagon Inj) 1 mg UD PRN SQ 03/24/17 03:00 04/23/17 02:59 Prednisone (PredniSONE TAB) 5 mg QAM PO 03/25/17 09:00 04/23/17 08:59 Norepinephrine Bitartrate 8 mg/ Dextrose 508 ml @ 0 mls/hr Q0M PRN IV 03/24/17 05:05 04/23/17 05:04 Vancomycin HCl 1250 mg/Sodium Chloride 275 ml @ 125 mls/hr 0700 IV 03/24/17 07:00 03/26/17 06:59 03/24/17 07:10 125 MLS/HR Metronidazole 500 mg/Prmx 100 ml @ 100 mls/hr Q8H IV 03/24/17 07:00 03/26/17 06:59 03/24/17 15:01 100 MLS/HR Cefepime HCl (Consult) 1 ea UD PRN N/A 03/24/17 06:45 04/23/17 06:44 Vancomycin HCl (Consult) 1 ea UD PRN N/A 03/24/17 06:45 04/23/17 06:44 Cefepime HCl 2000 mg/Dextrose 112.5 ml @ 225 mls/hr Q24H IV 03/25/17 06:00 03/26/17 05:59 Insulin Aspart (novoLOG ASPART) SLIDING SCALE If C... TODAY@0000,0400 [place] 03/25/17 00:00 03/25/17 04:01 Sodium Chloride 1,000 ml @ 100 mls/hr Q10H IV 03/24/17 15:15 04/23/17 15:14 03/24/17 15:16 100 MLS/HR Review of Systems A complete 10-point Review of Systems was discussed with the patient, with pertinent positives and negatives listed in the History of Present Illness. All remaining Review of Systems questions can be considered negative unless otherwise specified. Physical Exam Date Time Temp Pulse Resp B/P (MAP) Pulse Ox O2 Delivery O2 Flow Rate FiO2 03/24/17 16:00 97 Nasal Cannula 2.0 03/24/17 16:00 36.6 109 23 134/68 (90) 96 Nasal Cannula 2.0 03/24/17 14:00 36.7 109 21 117/66 (83) 95 Nasal Cannula 03/24/17 13:00 121/74 (90) 03/24/17 13:00 121/74 (90) 03/24/17 12:00 97 Nasal Cannula 2.0 03/24/17 11:15 36.6 111 18 103/61 94 2.0 03/24/17 11:00 36.5 114 10 103/61 97 2.0 03/24/17 11:00 103/61 (75) 03/24/17 10:30 36.5 115 18 110/66 96 2.0 03/24/17 10:14 36.6 109 15 120/59 99 2.0 03/24/17 10:00 120/59 (79) 03/24/17 10:00 36.6 103 18 120/59 100 2.0 03/24/17 09:54 120 111/72 03/24/17 09:30 36.5 119 20 111/72 100 2.0 03/24/17 09:00 36.5 124 21 94/57 98 2.0 03/24/17 09:00 94/57 (69) 03/24/17 08:45 84/57 (66) 03/24/17 08:45 36.5 125 20 84/56 95 2.0 03/24/17 08:00 36.5 123 20 104/55 (71) 98 Nasal Cannula 2.0 03/24/17 08:00 97 Nasal Cannula 2.0 03/24/17 07:00 36.5 123 22 117/63 (81) 97 Nasal Cannula 2.0 03/24/17 06:15 123 19 104/62 (76) 91 Nasal Cannula 2.0 03/24/17 06:10 126 28 111/54 (73) 93 Nasal Cannula 2.0 03/24/17 05:50 36.9 128 29 93/57 (69) 96 Nasal Cannula 2.0 03/24/17 05:40 36.9 130 18 95 2.0 03/24/17 04:39 36.9 129 18 72/58 (63) 95 Nasal Cannula 2.0 03/24/17 04:19 36.3 127 16 65/55 (58) 97 Nasal Cannula 2.0 03/24/17 03:49 130 63/55 (58) 03/24/17 03:15 128 64/45 (51) 03/24/17 02:25 135 92/59 (70) 03/24/17 02:23 130 87/58 (68) 96 Nasal Cannula 2.0 03/24/17 02:21 134 77/54 (62) 97 Nasal Cannula 2.0 03/24/17 02:20 128 60/50 (53) 03/24/17 02:09 36.4 131 24 63/56 (58) 98 Nasal Cannula 2.0 03/24/17 00:00 98 Nasal Cannula 2.0 03/24/17 00:00 130 28 96 Nasal Cannula 2.0 03/23/17 22:51 36.8 134 16 103/70 (81) 97 Nasal Cannula 2.0 03/23/17 21:15 127 03/23/17 19:50 37.4 117 16 95/61 (72) 100 Nasal Cannula 4.0 03/23/17 18:29 36.2 118 16 90/65 (73) 100 Nasal Cannula 4.0 03/23/17 17:27 36.6 104 16 90/63 (72) 100 Nasal Cannula 4.0 VITAL SIGNS - Vital signs and nursing notes were reviewed. GENERAL - 76-year-old female appearing her stated age who is in no acute distress. Extreme pallor to the skin and palpebral conjunctiva. Communicates well with provider and answers questions appropriately. SKIN - Without rashes. HEAD - NC/AT. EYES - PERRL with EOMI bilaterally. Sclera anicteric. NECK - Neck with FROM. Supple to palpation. LUNGS - Chest wall symmetric without accessory muscle use, intercostals retractions, or central cyanosis. Normal vesicular breath sounds CTA B/L. No wheezes, rales, or rhonchi appreciated. CARDIAC - RRR with S1/S2. No murmur, rubs, or gallops appreciated. ABDOMEN - Abdominal contour flat without pulsations or visible masses. BS normoactive all four quadrants. Mild TTP noted in the LLE. No palpable masses, hepatosplenomegaly, or ascites noted. EXTREMITIES - No clubbing or peripheral cyanosis. No pretibial edema present. +3 /5 radial and dorsalis pedis pulses palpated throughout. +5/5 strength noted in UE/LE bilaterally. NEUROLOGIC - Cranial nerves II through XII grossly intact. Sensory intact to light touch throughout. Tremor of the jaw appreciated. PSYCH - A&Ox3 and cooperates fully with examiner. Pt is very pleasant and interacts well with examiner. Laboratory Results Last 24 Hours Test 03/23/17 19:03 03/23/17 21:50 03/24/17 02:28 03/24/17 03:40 Hemoglobin 10.8 g/dL 8.1 g/dL Hematocrit 30.0 % 22.3 % Sodium Level 138 mmol/L 136 mmol/L Potassium Level 4.6 mmol/L 4.3 mmol/L Chloride Level 109 mmol/L 108 mmol/L Carbon Dioxide Level 21 mmol/L 17 mmol/L Anion Gap 8.0 mmol/L 11.0 mmol/L Blood Urea Nitrogen 10 mg/dl 11 mg/dl Creatinine 0.94 mg/dl 1.40 mg/dl Est Creatinine Clear Calc Drug Dose 39.8 ml/min 26.7 ml/min Estimated GFR () 68.8 42.5 Estimated GFR (Non- 59.3 36.7 BUN/Creatinine Ratio 10.5 7.7 Random Glucose 159 mg/dl 222 mg/dl Lactic Acid Level 2.7 mmol/L 6.2 mmol/L Calcium Level 7.8 mg/dl 7.0 mg/dl Magnesium Level 1.5 mg/dl 2.3 mg/dl Thyroid Stimulating Hormone (TSH) 1.010 uIu/ml Bedside Glucose 293 mg/dl White Blood Count 20.54 K/uL Red Blood Count 2.52 M/uL Mean Corpuscular Volume 88.5 fL Mean Corpuscular Hemoglobin 32.1 pg Mean Corpuscular Hemoglobin Concent 36.3 g/dl Platelet Count 119 K/uL Mean Platelet Volume 9.8 fL Neutrophils (%) (Auto) 84.9 % Lymphocytes (%) (Auto) 4.2 % Monocytes (%) (Auto) 10.5 % Eosinophils (%) (Auto) 0.0 % Basophils (%) (Auto) 0.0 % Neutrophils # (Auto) 17.43 K/uL Lymphocytes # (Auto) 0.87 K/uL Monocytes # (Auto) 2.15 K/uL Eosinophils # (Auto) 0.00 K/uL Basophils # (Auto) 0.01 K/uL RDW Standard Deviation 52.1 fL RDW Coefficient of Variation 16.1 % Immature Granulocyte % (Auto) 0.4 % Immature Granulocyte # (Auto) 0.08 K/uL Red Blood Cell Morphology Unremarkable Estimated Average Glucose 105 mg/dl Hemoglobin A1c 5.3 % Phosphorus Level 3.6 mg/dl Albumin 2.6 gm/dl Test 03/24/17 04:25 03/24/17 05:08 03/24/17 06:34 03/24/17 08:42 Urine Color YELLOW Urine Appearance CLEAR Urine pH 5.0 Urine Specific [place] 1.020 Urine Protein TRACE Urine Glucose (UA) 1+ Urine Ketones TRACE Urine Occult Blood TRACE Urine Nitrite NEG Urine Bilirubin NEG Urine Urobilinogen NEG Urine Leukocyte Esterase NEG Urine WBC (Auto) 5-10 /hpf Urine RBC (Auto) 5-10 /hpf Urine Hyaline Casts (Auto) 10-30 /lpf Urine Epithelial Cells (Auto) >30 /lpf Urine Bacteria (Auto) NEG Urine Renal Epithelial Cells 0-5 /lpf Urine Pathogenic Casts 0-3 GRANULAR CASTS /lpf Total Bilirubin 0.7 mg/dl Direct Bilirubin 0.3 mg/dl Aspartate Amino Transf (AST/SGOT) 45 U/L Alanine Aminotransferase (ALT/SGPT) 28 U/L Alkaline Phosphatase 53 U/L Total Creatine Kinase 917 U/L Troponin I 0.184 ng/ml 0.293 ng/ml Total Protein 4.1 gm/dl Albumin 2.6 gm/dl Lipase 313 U/L Procalcitonin 3.36 ng/ml Bedside Glucose 193 mg/dl Prothrombin Time 13.9 SECONDS Prothromb Time International Ratio 1.3 Activated Partial Thromboplast Time 38.6 SECONDS Partial Thromboplastin Ratio 1.5 Lactic Acid Level 5.2 mmol/L Test 03/24/17 11:57 03/24/17 16:04 White Blood Count 18.08 K/uL Red Blood Count 3.80 M/uL Hemoglobin 11.5 g/dL Hematocrit 33.2 % Mean Corpuscular Volume 87.4 fL Mean Corpuscular Hemoglobin 30.3 pg Mean Corpuscular Hemoglobin Concent 34.6 g/dl RDW Standard Deviation 45.8 fL RDW Coefficient of Variation 14.8 % Platelet Count 74 K/uL Mean Platelet Volume 10.1 fL Lactic Acid Level 3.4 mmol/L Troponin I 0.373 ng/ml Bedside Glucose 141 mg/dl Diagnostic Results Radiological imaging and reports were reviewed by myself. Radiologist's Interpretation as follows: CHEST ONE VIEW PORTABLE CLINICAL HISTORY: 76 years-old Female presenting with sick. TECHNIQUE: Portable semiupright AP view of the chest was obtained. COMPARISON: 02/24/2017. FINDINGS: Apparent enlargement of the cardiac silhouette, new from prior. Mildly low lung volumes in comparison to prior exam. Hazy hilar and right basilar opacity. No large effusion or pneumothorax. S-shaped scoliotic curvature of the spine with are slightly visualized fusion hardware in the lumbar spine. Gaseous distention of the stomach. IMPRESSION: 1. Apparent interval development of cardiomegaly. Correlation with echocardiography may be useful. 2. Perihilar and right basilar opacities. This could represent developing pulmonary edema, although infection and aspiration cannot be excluded. ABD/PELVIS NO IV OR ORAL CONT CLINICAL HISTORY: 76 years-old Female presenting with abd pain. TECHNIQUE: Multidetector CT of the abdomen and pelvis was performed without the use of intravenous contrast. IV contrast: None. A dose lowering technique was used consistent with the principles of ALARA (as low as reasonably achievable). COMPARISON: 02/27/2017. CT DOSE (mGy.cm): The estimated cumulative dose is 259.57 mGy.cm. FINDINGS: Risk Management Specialist topogram: Extensive posterior lumbosacral fusion hardware. Levocurvature of the lumbar spine. Lung bases: Dependent consolidation with associated volume loss new from prior more extensively on the left with peribronchial vascular consolidation on the left. Pectus deformity with resultant shift of the heart leftward. Mitral annular calcification. No pericardial effusion. Trace bilateral pleural effusions. Liver: Normal morphology. Normal density. Biliary: Central intrahepatic and extrahepatic biliary ductal prominence allowing for noncontrast technique. This is unchanged from prior exam. Distended gallbladder containing hyperdense material, likely sludge. No apparent gallbladder wall thickening allowing for noncontrast technique. Pancreas: Moderate to severe parenchymal atrophy. Spleen: Normal. Adrenal glands: Normal. Kidneys and ureters: No nephrolithiasis. No hydronephrosis. Ureters poorly visualized. Bladder: Incompletely evaluated secondary to underdistention. Mild circumferential bladder wall thickening may be result of under distention. Intraluminal gas noted likely related to the presence of a Lazo catheter. Pelvic organs: Uterus poorly visualized with noncontrast technique. Ovaries not well visualized. Bowel: Diverticulosis of the sigmoid colon with wall thickening, likely chronic diverticular disease given the absence of pericolonic inflammatory change. Mild apparent colonic wall thickening at the mid transverse colon without significant surrounding inflammatory changes. Few diverticula may be noted in this region. No bowel obstruction. Gaseous distention of the stomach. Mild fat stranding surrounding the descending portion of the duodenum. No extraluminal gas in the retroperitoneum. Peritoneal cavity: Trace retroperitoneal free fluid along the duodenum. More significant extraperitoneal fluid noted in the left hemipelvis, which may be high density. Small amount of free fluid in the pelvis. Vasculature: Atherosclerosis of the normal caliber abdominal aorta. Lymph nodes: No gross lymphadenopathy allowing for noncontrast technique. Abdominal wall: Scattered calcifications in the buttocks likely injection granulomas. Musculoskeletal: Interval bilateral transpedicular screw and saray fixation of the lumbosacral spine. Previously noted compression fracture of the L4 vertebral body extending into the anterior aspect of the left L4 pedicle, essentially unchanged from prior. Previously 4 mm of retropulsion of the L4 vertebral body into the spinal canal, unchanged. Levocurvature of the lumbar spine accompanied by multilevel degenerative disease. IMPRESSION: 1. Interval development of left extraperitoneal hemorrhage most likely a postsurgical complication status post lumbosacral spinal fusion. 2. Diverticulosis with chronic diverticular disease of the sigmoid colon. No convincing evidence of acute diverticulitis. 3. Small pelvic ascites. 4. Trace retroperitoneal fluid and fat stranding along the descending portion of duodenum. No evidence of perforation. This may possibly represent free fluid or hemorrhage tracking superiorly from the extraperitoneal pelvic space. 5. Distended gallbladder containing sludge. No convincing evidence of cholecystitis. If there is clinical concern for this diagnosis, ultrasound is recommended. 6. Extensive dependent atelectasis or prominently on the left. EKG was obtained and reviewed by myself. EKG demonstrated sinus tachycardia at a rate of 127 bpm. Left bundle branch block again noted and compared to prior. No acute ST or T-wave abnormalities noted per my interpretation. Assessment & Plan (1) HOCM (hypertrophic obstructive cardiomyopathy) (2) Blood loss, postoperative (3) Hypovolemia (4) Tachycardia Reason Critically Ill: 76-year-old female with acute blood loss anemia and hypovolemia status post lumbar laminectomy and fusion. Neuro - * CAM ICU: NEGATIVE * Status Post Lumbar Laminectomy/Fusion: * Ultram and Tylenol for pain. Cardiac - * History of HOCM: * In the setting, would recommend slow her heart rate to increase ventricular filling and decreased outflow tract obstruction secondary to tachycardia. * Tolerated IV metoprolol well. * Will restart PO metoprolol. * ECHO: * The left ventricle is hyperdynamic. * Ejection Fraction = >70 %. * The echo findings are consistent with hypertrophic cardiomyopathy. 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 * The septal thickness is 1.7cm. * The right ventricle is hyperdynamic. * There is systolic anterior motion of the mitral valve. * There is moderate mitral regurgitation. * EKG has increased ventricular rate without acute findings otherwise. Will check daily and with c/o pain. * Initial elevation of Troponin - likely related to demand ischemia in the setting of tachycardia and outflow tract obstruction. * Will continue to trend. Respiratory - * Will encourage Incentive Spirometry in the setting of recent surgery. * Supplemental O2 as needed. * Continue to monitor pulse oximetry. GI - * History of GERD. * Continue home dose of Protonix. RENAL/LYTES - * Acute Kidney Injury: * In the setting of hypovolemia, hypotension, and anemia. * Will trend PRPs. Initially received IVF. Tolerating PO fluids well at this point. * Monitor electrolytes daily. Correct appropriately as needed. - * Lazo Catheter in Place. * Will continue for strict monitoring of I&Os. ENDO - * No history of DM. * Monitor BSGs in the setting of recent aggressive steroids. * ISS/Insulin gtt per protocol. HEME - * Acute Blood Loss Anemia s/p Surgery. * Initial H&H 8.1/22.3 - received 2 U with 2 on hold - repeat H&H 11.5/33.2 * Will continue to trend. Transfuse as needed. * Extraperitoneal Hemorrhage on Abd/Pelvis CT - will continue to monitor. * No intervention necessary at this point. May be considered for worsening s/s. ID - * Broad spectrum antibiotics (Vancomycin/Cefepime/Flagyl) per primary team for concerns of diverticulitis. * Will continue in the acute phase. * Improving Lactic Acid - will repeat tomorrow. * Will check AM Procalcitonin. LINES/IV ACCESS - * PIVs in place. DVT PROPHYLAXIS - * SCDs * Will defer chemical prophylaxis at this point in the setting of blood loss and Extraperitoneal Hematoma. I have personally spent 45 minutes of critical care time in the direct management of this patient. This is a life/limb threatening event. This includes time spent evaluating patient, direct bedside care, chart review, placing orders, interpretation of diagnostic studies, discussion with consultants, patient, and family members, as well as other required patient management activities. This time is exclusive of all separately billable procedures, and teaching time and separate from and in addition to any other critical care service time. Thank you for this consultation allow us to be part of this patient's care. Please refer to my attending physician's documentation for any further recommendations. Resident Physician Supervision Note: I was present with Yves Joseph PA-C during the history and exam. I discussed the case with the PA and agree with the findings and plan as documented in the note. Any exceptions or clarifications are listed here: Patient POD#1 s/p L2-S1 laminectomy and fusion. has h/o HOCM, HTN, IBS, She deteriorated overnight, with tachycardia and hypotension, remaining anemic despite receiving 2 units PRBC yesterday. Hb went from 14.7 preop to 6.5 post- op. Received 2 units PRBC yesterday, went up to 10.8 but dropped to 8.1. After 2 more units today it went up to 11.5. Patient is less tachycardic, around [address] scan reviewed with the radiologist. The amount of blood seen is not impressive, may be related to the extensive surgery. Will monitor the labs and clinical evolution. If she continues to warrant transfusions, then we'll certainly repeat the CT scan. Continue to monitor CBC, lactic acid every 6 hours. Transfuse as needed. On empiric Abx for now. Low threshold to discontinue, this does not seem to be a septic shock picture Troponin elevation in my opinion represents demand ischemia, secondary to anemia , hypotension and tachycardia. We shall not treat this empirically for [place] with ASA, anticoagulation. Trend troponin It is also important to lower the heart rate given that she has HOCM. Will continue intravascular volume expansion with IV fluids, but will also continue the patient on beta-blockers Deescalate steroids tomorrow DVT prophylaxis: SCDs, no anticoagulation for now Documented By: Vernon Jones MD
[2017-03-24 18:34] LABS: HEMATOCRIT 29.9 % (37-47); MEAN CELL VOLUME 86.2 fL (80-100); MEAN CORPUSCULAR HEMOGLOBIN 30.3 pg (25-34); MEAN CORPUSCULAR HGB CONC 35.1 g/dl (32-36); RED BLOOD COUNT 3.47 M/uL (4.2-5.4); WHITE BLOOD COUNT 17.26 K/uL (4.8-10.8)
[2017-03-24 18:39] LABS: MEAN PLATELET VOLUME 10.1 fL (7.4-10.4); PLATELET COUNT 63 K/uL (130-400)
[2017-03-24] MEDS: DOCUSATE SODIUM/SENNA 50/8.6MG TAB PO SCH (21:36)
[2017-03-24] MEDS: CETIRIZINE HCL 10 MG TAB PO SCH (21:36)
[2017-03-25] VITALS (25 sets, daily range): BP systolic 126–161; BP diastolic 66–125; PULSE 71–100; TEMP 36.7–37; O2SAT 90–99
[2017-03-25 00:37] LABS: HEMATOCRIT 29.2 % (37-47); MEAN CELL VOLUME 86.9 fL (80-100); MEAN CORPUSCULAR HEMOGLOBIN 31.3 pg (25-34); RED BLOOD COUNT 3.36 M/uL (4.2-5.4); WHITE BLOOD COUNT 17.36 K/uL (4.8-10.8)
[2017-03-25 00:43] LABS: MEAN PLATELET VOLUME 9.6 fL (7.4-10.4); PLATELET COUNT 60 K/uL (130-400)
[2017-03-25] MEDS: INSULIN ASPART 100 UNITS/ML 3 ML PEN SC SCH ×6 (04:00→20:55)
[2017-03-25] MEDS: OXYCODONE HCL IR 5 MG TAB (IMMEDIATE RELEASE) PO PRN ×3 (04:04→20:04)
[2017-03-25] MEDS: ONDANSETRON INJ 2 MG/ML 2 ML VIAL IV PRN ×2 (04:04→20:04)
[2017-03-25] MEDS: SODIUM CHLORIDE 0.9% 1000ML 1,000 ML IV SCH ×2 (04:06→11:26)
[2017-03-25] MEDS ORDERED: CEFEPIME IV 2000 MG in DEXTROSE 5% 100ML IV SCH ×2 (06:00→18:00)
[2017-03-25] MEDS: POLYETHYLENE (MIRALAX) 17 GM PACK PO SCH ×4 (06:10→23:49)
[2017-03-25 06:13] LABS: HEMATOCRIT 28.2 % (37-47); MEAN CORPUSCULAR HEMOGLOBIN 29.6 pg (25-34); RED BLOOD COUNT 3.24 M/uL (4.2-5.4); WHITE BLOOD COUNT 16.43 K/uL (4.8-10.8)
[2017-03-25 06:14] LABS: MEAN PLATELET VOLUME 10.2 fL (7.4-10.4); PLATELET COUNT 59 K/uL (130-400)
[2017-03-25] MEDS: METRONIDAZOLE / NSS 500 MG in PREMIXED NSS 100 ML IV SCH ×3 (06:34→22:52)
--- NOTE | 2017-03-25 06:48 | Clinical Documentation Query ---
CLINICAL DOCUMENTATION QUERY QUERY 1 OF 2 76-year-old female with significant past medical history including hypertrophic obstructive cardiomyopathy, rheumatoid arthritis, diaphragmatic hernia, hyperlipidemia. She underwent lumbar decompression and fusion and after surgery she became hypotensive, anemic, and tachycardic. In your clinical opinion is this patient being managed for: ( + ) Postprocedural hypovolemic shock ( ) Other explanation of clinical findings (Please Explain) ( ) Unable to determine (Please Define) ( ) Need to Discuss ( ) Not Agree The medical record reflects the following clinical findings, treatment, and risk factors. Clinical Indicators: hypotension,tachycardia, low urinary output, possible CHARITO, CT results are Interval development of left extraperitoneal hemorrhage most likely a postsurgical complication status post lumbosacral spinal fusion. Treatment:ICU, volume replacement with IV fluid/blood Risk Factors: post surgeryl, OHC, Anemia QUERY 2 OF 2 In your clinical opinion is this patient being managed for: ( + ) Acute kidney failure ( ) Other explanation of clinical findings (Please Explain) ( ) Unable to determine (Please Define) ( ) Need to Discuss ( ) Not Agree The medical record reflects the following clinical findings, treatment, and risk factors. Clinical Indicators:Creat 0.73 to 1.40, GFR 80.6 to 36.7, urine output 500ml to 175ml Treatment:ICU, volume replacement IV fluids and blood, monitor PRPs Risk Factors:Post surgery, age, hypovolemic shock, anemia Please clarify and document your clinical opinion in the progress notes and discharge summary. Terms such as "probable", "suspected", "likely", "questionable", "possible", or "still to be ruled out" are acceptable. IF IN AGREEMENT, YOU MUST DOCUMENT ABOVE DIAGNOSTIC STATEMENT IN DAILY PROGRESS NOTES AND DISCHARGE SUMMARY. This document is not part of the patient's record. Thank You, Doris Shahid RN [phone]
[2017-03-25 07:04] LABS: ALB/GLOB RATIO 1.2 (0.9-2); BUN/CREATININE RATIO 13.3 (10-20); CALCIUM 7.5 mg/dl (8.5-10.1); CREATININE 0.66 mg/dl (0.60-1.20); MAGNESIUM 2.1 mg/dl (1.8-2.4); PHOSPHORUS 1.6 mg/dl (2.5-4.9); POTASSIUM 3.8 mmol/L (3.5-5.1)
[2017-03-25] MEDS: CEROVITE ADV FORMULA TAB PO SCH (08:00)
[2017-03-25] MEDS ORDERED: COSYNTROPIN INJ 0.25 MCG in SYRINGE 4 ML IV ONE (08:00)
[2017-03-25] MEDS: FLUTICASONE PROPIONATE NA SPR 16 GM BTL NAE SCH (08:00)
[2017-03-25] MEDS: PANTOprazole SOD 40 MG TAB PO SCH (08:01)
[2017-03-25] MEDS: SENNA 8.6 MG TAB PO SCH ×2 (08:01→21:00)
[2017-03-25] MEDS ORDERED: POTASSIUM PHOS 3 MMOL/1 ML INFUSION IV STA (08:11)
[2017-03-25] MEDS: VANCOMYCIN INJ 1,250 MG in SODIUM CHLORIDE 0.9% 250ML 250 ML IV SCH (08:20)
[2017-03-25] MEDS ORDERED: INSULIN GLARGINE SOLOSTAR 100 UNITS/ML 3 ML PEN SC SCH (09:00)
[2017-03-25] MEDS ORDERED: POTASSIUM PHOSPHATE INJ 15 MMOL in SODIUM CHLORIDE 0.9% 250ML 250 ML IV SCH (09:00)
[2017-03-25] MEDS: METOPROLOL TARTRATE 100 MG TAB PO SCH ×2 (09:35→21:01)
[2017-03-25] MEDS ORDERED: VANCOMYCIN INJ 1,000 MG in SODIUM CHLORIDE 0.9% 250ML 250 ML IV STA (09:47)
--- NOTE | 2017-03-25 10:58 | Pharmacy Progress Note ---
Pharmacy Abx Dose Short Note Date of Service Mar 25, 2017. Assessment & Plan Assessment * 76 year old female receiving VANCOMYCIN and CEFEPIME IV for treatment of sepsis, presumed to be secondary to diverticulitis per otolaryngology rep * She had experienced hypotensions, tachycardia and SOB secondary to surgical blood loss and extraperitoneal hemorrhage - however the possibility of infection is still being entertained as being partially responsible for these symptoms as the patient has c/o abdominal pain and WBC is elevated * She is currently afebrile, WBC is elevated but slowly trending down, VS have improved and are fairly stable at this time * Renal fxn has improved greatly over the last 24 hrs, SCr 1.4 --> 0.66, good U.O. thus far today * Today is day # 2 of empiric antimicrobial therapy * CT abd reported to show no evidence diverticulitis or cholecystitis Plan Vancomycin * Vancomycin 1250mg x 1 given yesterday AM as a loading dose * Random vancomycin level this AM only 3.9 due to greatly improved renal fxn in a short period of time * Vancomycin 1250mg x 1 again given this AM as a repeat loading dose due to grossly subtherapeutic level * Maintenance dose: 750mg IV Q 14 hours * Goal trough level for sepsis : 15 to 20 mcg/mL * ABX therapy has only been ordered for 48 hours, will notify provider that no further therapy will be given after 0700 tomorrow unless new orders given * If therapy is to continue, will check a trough level w/ 3rd dose Cefepime * eCrCl now 50-60cc/min, increase dose to 2gm Q 12 hours * ABX therapy has only been ordered for 48 hours, will notify provider that no further therapy will be given after 0700 tomorrow unless new orders given Pharmacy will continue to follow and will adjust dose/frequency as necessary. Thank you.
--- NOTE | 2017-03-25 11:25 | Pharmacy Progress Note ---
Glycemic Control Progress Note Date of Service Mar 25, 2017. Scope Glycemic Pharmacist consulted for glycemic control to write orders per [facility] inpatient glycemic control protocol. Objective Accuchecks BSG (last 24hrs): Test 03/24/17 16:04 03/24/17 21:21 03/24/17 23:58 03/25/17 04:01 Bedside Glucose 141 mg/dl (70-90) 168 mg/dl (70-90) 167 mg/dl (70-90) 124 mg/dl (70-90) Test 03/25/17 06:03 Random Glucose 130 mg/dl (70-99) HbA1c: Test 03/24/17 03:40 Hemoglobin A1c 5.3 % (4.5-5.6) Recent Pertinent Medications Outpatient Anti-diabetic Regimen: * No prior dx of DM * A1c = 5.3% 03/24/17 Risk Factors for Insulin Resistance: * Steroids: Dexamethasone 6mg IV Q 8 hrs x 3 post-op doses; last dose was given at 1134 03/24/17; will resume home dose of Prednisone 5mg daily today * Infection: possible sepsis suspected intraabdominal source; empiric cefepime , metronidazole + vancomycin * Pressors: Norepinephrine ordered but has not been required * Recent Surgery: POD #2 s/p lumbar decompression / fusion * Diet: ordered Clear Liquid diet; PO intake is poor Outpatient Anti-Diabetic Meds No prior dx of DM Assessment & Plan ASSESSMENT: 03/24/17 * Patient underwent elective lumbar decompression / fusion yesterday, however she did experience significant blood loss leading to fall in H/H, hypotension, tachycardia and SOB. Transfusions were ordered overnight along w/ fluid resuscitation and she was transferred to ICU. * She has no prior dx of diabetes and recent A1c 5.3 consistent with this * She did become hyperglycemic overnight due to high dose steroids along with surgical stressors + stress of hemorrhagic shock * Fasting BSG this AM 193 and pt ordered a diet. Will initiate basal insulin this AM along with aggressive Novolog correction and prandial coverage - based upon moderate/severe stress and weight. 03/25/17 * BSGs have been at goal over the last 24 hours * Fasting BSG 124-144 this AM with 25 units Lantus on board * No further dexamethasone is ordered and last dose given ~24 hours ago, insulin sensitivity should improve over the next 24 hours * Will begin to titrate the insulin doses downward today as stressors appear to be lessening * May be able to withdraw basal insulin tomorrow PLAN FOR INPATIENT GLYCEMIC CONTROL: * Lantus 10 units SQ x 1 this AM; will give 10 units again tomorrow if BSG above 140 * Novolog SQ ACHS * Change correction factor to 35 mg/dl/unit * Change carb ratio to 1 unit per 15 grams CHO consumed * Goal range Low 140 mg/dL - High 180 mg/dL * Reevaluate insulin requirements tomorrow as the effects of steroidsdissipate * Please note that the plan above was derived based on current level of insulin resistance and hospital stress. These recommendations are appropriate for inpatient admission only. Plan of care upon discharge will need to be reassessed to avoid potential outpatient hypo/hyperglycemia. Thank you.
[2017-03-25 12:02] LABS: HEMATOCRIT 26.6 % (37-47); MEAN CELL VOLUME 86.6 fL (80-100); MEAN CORPUSCULAR HEMOGLOBIN 31.3 pg (25-34); MEAN CORPUSCULAR HGB CONC 36.1 g/dl (32-36); RED BLOOD COUNT 3.07 M/uL (4.2-5.4); WHITE BLOOD COUNT 15.89 K/uL (4.8-10.8)
[2017-03-25 12:05] LABS: MEAN PLATELET VOLUME 9.8 fL (7.4-10.4); PLATELET COUNT 58 K/uL (130-400)
--- NOTE | 2017-03-25 12:09 | Progress Note ---
Progress Note Date of Service Mar 25, 2017. Progress Note Patient complaining of going back pain today leg symptoms improved. She may petard sitting in a chair for 30-40 minutes without difficulty. On exam vital signs are stable strength is intact lower extremities. Assessment status post lumbar depression fusion replant this time will continue activity as tolerated and have her transferred to the orthopedic floor when medically stable.
--- NOTE | 2017-03-25 13:15 | Critical Care Progress Note ---
Critical Care Progress Note Date of Service Mar 25, 2017. ICU Day ICU Day Number: [address] Jones Subjective Patient is a 76-year-old female admitted to the ICU yesterday after developing significant hypotension and tachycardia in the setting of blood loss anemia status post lumbar laminectomy and fusion. Patient received a total 4 units PRBCs. She did have a slight drop in her H&H which has seemed to stabilize at this point. Her heart rate did improve as did her blood pressure. There were no reported events other than some complaints of ongoing nausea overnight. The patient offers no complaints this time. She does report that her legs are aching somewhat, but has required nothing significant for her symptoms otherwise. Objective VITAL SIGNS - Vital signs and nursing notes were reviewed. GENERAL - 76-year-old female appearing her stated age who is in no acute distress. Communicates well with provider and answers questions appropriately. SKIN - Without rashes. HEAD - NC/AT. EYES - PERRL with EOMI bilaterally. Sclera anicteric. NECK - Neck with FROM. Supple to palpation. LUNGS - Chest wall symmetric without accessory muscle use, intercostals retractions, or central cyanosis. Normal vesicular breath sounds CTA B/L. No wheezes, rales, or rhonchi appreciated. CARDIAC - RRR with S1/S2. Systolic murmur appreciated in the LEFT side chest. No murmur, rubs, or gallops appreciated. ABDOMEN - Abdominal contour flat without pulsations or visible masses. BS normoactive all four quadrants. Mild TTP noted in the LLE. No palpable masses, hepatosplenomegaly, or ascites noted. EXTREMITIES - No clubbing or peripheral cyanosis. No pretibial edema present. +3 /5 radial and dorsalis pedis pulses palpated throughout. +5/5 strength noted in UE/LE bilaterally. NEUROLOGIC - Cranial nerves II through XII grossly intact. Sensory intact to light touch throughout. Tremor of the jaw appreciated. PSYCH - A&Ox3 and cooperates fully with examiner. Pt is very pleasant and interacts well with examiner. Current SOFA Score SOFA Score Response (Comments) Value Platelets (x10) < 100 2 Bilirubin (mg/dL) < 1.2 0 Hunter Coma Score 15 0 Level of Hypotension No Hypotension 0 Creatinine (mg/dL) < 1.2 0 Total 2 Assessment & Plan (1) HOCM (hypertrophic obstructive cardiomyopathy) (2) Blood loss, postoperative (3) Hypovolemia (4) Tachycardia Reason Critically Ill: 76-year-old female with acute blood loss anemia and hypovolemia status post lumbar laminectomy and fusion. Neuro - * CAM ICU: NEGATIVE * Status Post Lumbar Laminectomy/Fusion: * Ultram and Tylenol for pain. * Did receive OxyIR overnight for pain. Should be cautious with this 2/2 h/o narcotic related constipation. Cardiac - * History of HOCM: * Increased patient's metoprolol - tolerating well. Will progress to home dosing. * Initial elevation of Troponin: * Peaked at 0.540. * Likely related to demand ischemia. * Echo demonstrated HOCM w/ Dynamic Ventricular Movement. * AM EKGs. * Appreciate Cardiology Consultation. Respiratory - * Will encourage Incentive Spirometry in the setting of recent surgery. * Supplemental O2 as needed. * Continue to monitor pulse oximetry. GI - * History of GERD. * Continue home dose of Protonix. * Extraperitoneal Hemorrhage - will continue to monitor. * Abdominal Pain - LLQ. * Will continue to treat for diverticulitis. Possible ischemic gut injury 2/2 poor perfusion. Lactic acid has declined suggesting no persistence of ischemia. Will repeat images if no improvement. RENAL/LYTES - * Acute Kidney Injury: * In the setting of hypovolemia, hypotension, and anemia. * PRPs daily - Improving Cr. * Monitor electrolytes daily. Correct appropriately as needed. - * Lazo Catheter in Place. * Will continue for strict monitoring of I&Os. ENDO - * No history of DM. * Monitor BSGs in the setting of recent aggressive steroids. * ISS/Insulin gtt per protocol. HEME - * Acute Blood Loss Anemia s/p Surgery. * H&H x2 @ 9.6/26.6. * Will continue to trend. Transfuse as needed. * Extraperitoneal Hemorrhage on Abd/Pelvis CT - will continue to monitor. * No intervention necessary at this point. May be considered for worsening s/s. ID - * Broad spectrum antibiotics (Vancomycin/Cefepime/Flagyl) per primary team for concerns of diverticulitis. * Will continue in the acute phase. * Lactic acid normalized - likely in the setting of profound anemia and demand ischemia. * Procalcitonin improving. LINES/IV ACCESS - * PIVs in place. DVT PROPHYLAXIS - * SCDs * Will defer chemical prophylaxis at this point in the setting of blood loss and Extraperitoneal Hematoma. I have personally spent 35 minutes of critical care time in the direct management of this patient. This is a life/limb threatening event. This includes time spent evaluating patient, direct bedside care, chart review, placing orders, interpretation of diagnostic studies, discussion with consultants, patient, and family members, as well as other required patient management activities. This time is exclusive of all separately billable procedures, and teaching time and separate from and in addition to any other critical care service time. Thank you for this consultation allow us to be part of this patient's care. Please refer to my attending physician's documentation for any further recommendations. Attending Physician Supervision Note: I was present with Yves Joseph PA-C during the history and exam. I discussed the case with the PA and agree with the findings and plan as documented in the note. Any exceptions or clarifications are listed here: Patient POD#2 s/p L2-S1 laminectomy and fusion. has h/o HOCM, HTN, IBS, She deteriorated overnight post-op, with tachycardia and hypotension, remaining anemic despite receiving 2 units PRBC that day. Hb went from 14.7 preop to 6.5 post-op. Received 2 units PRBC post-op, went up to 10.8 but dropped to 8.1. After 2 more units yesterday it went up to 11.5. Now the hemoglobin stabilized in mid 9s. She is hemodynamically stable, HR much improved, not further hypotension Lactic acid cleared CT scan reviewed with the radiologist. She has a small amount of intra and retroperitoneal fluid, probably blood. Also noted diverticulosis without inflammation. If she continues to worsen, will re-check the CT scan to assess for ongoing bleeding, but so far it doesn't seem to be the case On empiric Abx for now. Low threshold to discontinue, this does not seem to be a septic shock picture. May change though to Rocephin and Flagyl for now Troponin elevation in my opinion represents demand ischemia, secondary to anemia , hypotension and tachycardia. We shall not treat this empirically for [place] with ASA, anticoagulation. Trend troponin, peaked and now trending down. It is also important to lower the heart rate given that she has HOCM. Will continue intravascular volume expansion with IV fluids, but will also continue the patient on beta-blockers Deescalate steroids DVT prophylaxis: SCDs, no anticoagulation for now Documented By: Vernon Jones MD Consults & Procedures Consultants: Spine Surgery - Dr. Fernandes Hospitalist - Dr. Harris Cardiology - Dr. Juarez Procedures: None at this point. Data Medications: Current Inpatient Medications Medications (Trade) Dose Ordered Sig/Taylor Route Start Time Stop Time Status Last Admin Dose Admin Promethazine HCl 12.5 mg/Sodium Chloride 50.5 ml @ 202 mls/hr Q6H PRN IV 03/23/17 13:15 04/22/17 13:14 Ondansetron HCl (Zofran Inj) 4 mg Q6H PRN IV 03/23/17 13:15 04/22/17 13:14 03/25/17 04:04 4 MG Metoclopramide HCl (Reglan Inj) 10 mg Q6H PRN IV 03/23/17 13:15 04/22/17 13:14 03/23/17 18:43 10 MG Lorazepam (Ativan Tab) 0.5 mg Q8H PRN PO 03/23/17 13:15 04/22/17 13:14 Lorazepam 0.5 mg/ Syringe 0.25 ml @ 1 mls/min Q8H PRN IV 03/23/17 13:15 04/22/17 13:14 Polyethylene (Miralax Powder Packet) 17 gm Q6 PO 03/25/17 06:00 04/24/17 05:59 03/25/17 11:23 17 GM Bisacodyl (Dulcolax Supp) 10 mg DAILY PRN LA 03/23/17 13:15 04/22/17 13:14 Magnesium Hydroxide (Milk Of Magnesia Susp) 30 ml DAILY PRN PO 03/23/17 13:15 04/22/17 13:14 Oxycodone HCl (Roxicodone Immediate Rel Tab) 5-10mg prn moderate to sev... Q4H PRN PO 03/24/17 06:00 04/07/17 05:59 03/25/17 09:34 10 MG Acetaminophen (Tylenol Tab) 1,000 mg Q8H PRN PO 03/23/17 13:15 04/22/17 13:14 Senna/Docusate Sodium (Senokot S Tab) 2 tab HS PO 03/23/17 21:00 04/22/17 20:59 03/24/17 21:36 2 TAB Sodium Biphosphate/ Sodium Phosphate (Fleet Enema) 132 ml ONE PRN LA 03/23/17 13:15 04/22/17 13:14 Al Hydroxide/Mg Hydroxide (Maalox Susp) 30 ml Q6H PRN PO 03/23/17 13:15 04/22/17 13:14 03/24/17 06:39 30 ML Famotidine (Pepcid Tab) 20 mg Q12 PRN PO 03/23/17 13:15 04/22/17 13:14 Cetirizine HCl (zyrTEC TAB) 10 mg QPM PO 03/23/17 21:00 04/22/17 20:59 03/24/17 21:36 10 MG Fluticasone Propionate (Flonase Nasal [place]) 2 sprays DAILY SAKINA 03/24/17 09:00 04/23/17 08:59 03/25/17 08:00 2 SPRAYS Pantoprazole Sodium (Protonix Tab) 40 mg QAM PO 03/24/17 09:00 04/23/17 08:59 03/25/17 08:01 40 MG Senna (Senokot Tab) 8.6 mg BID PO 03/23/17 21:00 04/22/17 20:59 03/25/17 08:01 8.6 MG Tramadol HCl (Ultram Tab) 50 mg Q6H PRN PO 03/24/17 06:00 04/23/17 05:59 Hydromorphone HCl (Dilaudid Inj) 0.5 mg Q3H PRN IV 03/23/17 22:45 04/06/17 22:44 Multivitamins/ Minerals (Multivitamin W/ Minerals Tab) 1 tab DAILY PO 03/24/17 09:00 04/23/17 08:59 03/25/17 08:00 1 TAB Insulin Glargine (Lantus Solostar Pen) 10 units DAILY SC 03/25/17 09:00 04/24/17 08:59 03/25/17 08:24 10 UNITS Insulin Aspart (novoLOG ASPART) SLIDING SCALE If C... ACHS SC 03/24/17 06:45 04/23/17 07:59 03/24/17 11:33 1 UNITS Glucose (Glucose 40% Gel) 15-30 GRAMS 15 GRAMS... UD PRN PO 03/24/17 03:00 04/23/17 02:59 Glucose (Glucose Chew Tab) 4-8 Tablets 4 Tabl... UD PRN PO 03/24/17 03:00 04/23/17 02:59 Dextrose (Dextrose 50% 50ML Syringe) 25-50ML OF 50% DW IV FOR... UD PRN IV 03/24/17 03:00 04/23/17 02:59 Glucagon (Glucagon Inj) 1 mg UD PRN SQ 03/24/17 03:00 04/23/17 02:59 Prednisone (PredniSONE TAB) 5 mg QAM PO 03/25/17 09:00 04/23/17 08:59 03/25/17 08:21 5 MG Norepinephrine Bitartrate 8 mg/ Dextrose 508 ml @ 0 mls/hr Q0M PRN IV 03/24/17 05:05 04/23/17 05:04 Metronidazole 500 mg/Prmx 100 ml @ 100 mls/hr Q8H IV 03/24/17 07:00 03/26/17 06:59 03/25/17 06:34 100 MLS/HR Cefepime HCl (Consult) 1 ea UD PRN N/A 03/24/17 06:45 03/26/17 07:00 Vancomycin HCl (Consult) 1 ea UD PRN N/A 03/24/17 06:45 03/26/17 07:00 Sodium Chloride 1,000 ml @ 100 mls/hr Q10H IV 03/24/17 15:15 04/23/17 15:14 03/25/17 11:26 100 MLS/HR Metoprolol Tartrate (Lopressor Tab) 100 mg BID PO 03/25/17 09:00 04/24/17 08:59 03/25/17 09:35 100 MG Cefepime HCl 2000 mg/Dextrose 112.5 ml @ 225 mls/hr Q12H IV 03/25/17 18:00 03/26/17 05:59 Vancomycin HCl 750 mg/Sodium Chloride 265 ml @ 125 mls/hr Q14H IV 03/25/17 22:00 03/26/17 07:00 Vital Signs: Date Time Temp Pulse Resp B/P (MAP) Pulse Ox O2 Delivery O2 Flow Rate FiO2 03/25/17 09:00 87 18 98 Nasal Cannula 2.0 03/25/17 08:42 92 29 153/81 (105) 96 03/25/17 08:37 98 28 139/98 (112) 90 Nasal Cannula 2.0 03/25/17 08:01 97 18 148/88 (108) 98 03/25/17 08:00 37.0 94 10 97 Nasal Cannula 2.0 03/25/17 08:00 Nasal Cannula 03/25/17 08:00 97 Nasal Cannula 2.0 03/25/17 07:00 96 18 136/76 (96) 96 03/25/17 06:00 100 18 140/74 (96) 96 Nasal Cannula 2.0 03/25/17 04:00 36.9 93 22 143/70 (94) 96 Nasal Cannula 2.0 03/25/17 04:00 95 Nasal Cannula 2.0 03/25/17 02:00 91 15 140/84 (102) 95 Nasal Cannula 2.0 03/25/17 00:00 37.0 95 16 133/71 (91) 95 Nasal Cannula 2.0 03/25/17 00:00 96 Nasal Cannula 2.0 03/24/17 22:00 102 16 127/60 (82) 96 Nasal Cannula 2.0 03/24/17 20:00 97 Nasal Cannula 2.0 03/24/17 20:00 36.8 105 18 128/63 (84) 97 Nasal Cannula 2.0 03/24/17 18:00 141/75 (97) 03/24/17 17:12 36.6 109 23 128/63 (84) 96 Nasal Cannula 2.0 03/24/17 16:00 97 Nasal Cannula 2.0 03/24/17 16:00 36.6 109 23 134/68 (90) 96 Nasal Cannula 2.0 03/24/17 14:00 36.7 109 21 117/66 (83) 95 Nasal Cannula 03/24/17 13:00 121/74 (90) 03/24/17 13:00 121/74 (90) Laboratory Results: Last 24 Hours Test 03/24/17 16:04 03/24/17 18:18 03/24/17 21:21 03/24/17 23:58 Bedside Glucose 141 mg/dl 168 mg/dl 167 mg/dl White Blood Count 17.26 K/uL Red Blood Count 3.47 M/uL Hemoglobin 10.5 g/dL Hematocrit 29.9 % Mean Corpuscular Volume 86.2 fL Mean Corpuscular Hemoglobin 30.3 pg Mean Corpuscular Hemoglobin Concent 35.1 g/dl RDW Standard Deviation 47.2 fL RDW Coefficient of Variation 15.3 % Platelet Count 63 K/uL Mean Platelet Volume 10.1 fL Troponin I 0.495 ng/ml Test 03/25/17 00:13 03/25/17 00:27 03/25/17 04:01 03/25/17 06:03 White Blood Count 17.36 K/uL 16.43 K/uL Red Blood Count 3.36 M/uL 3.24 M/uL Hemoglobin 10.5 g/dL 9.6 g/dL Hematocrit 29.2 % 28.2 % Mean Corpuscular Volume 86.9 fL 87.0 fL Mean Corpuscular Hemoglobin 31.3 pg 29.6 pg Mean Corpuscular Hemoglobin Concent 36.0 g/dl 34.0 g/dl RDW Standard Deviation 48.9 fL 50.0 fL RDW Coefficient of Variation 15.7 % 15.9 % Platelet Count 60 K/uL 59 K/uL Mean Platelet Volume 9.6 fL 10.2 fL Troponin I 0.515 ng/ml 0.540 ng/ml Lactic Acid Level 2.3 mmol/L 1.3 mmol/L Bedside Glucose 124 mg/dl Sodium Level 139 mmol/L Potassium Level 3.8 mmol/L Chloride Level 111 mmol/L Carbon Dioxide Level 24 mmol/L Anion Gap 4.0 mmol/L Blood Urea Nitrogen 9 mg/dl Creatinine 0.66 mg/dl Est Creatinine Clear Calc Drug Dose 58.3 ml/min Estimated GFR () 100.2 Estimated GFR (Non- 86.4 BUN/Creatinine Ratio 13.3 Random Glucose 130 mg/dl Calcium Level 7.5 mg/dl Phosphorus Level 1.6 mg/dl Magnesium Level 2.1 mg/dl Total Bilirubin 0.7 mg/dl Aspartate Amino Transf (AST/SGOT) 62 U/L Alanine Aminotransferase (ALT/SGPT) 34 U/L Alkaline Phosphatase 57 U/L Total Protein 4.4 gm/dl Albumin 2.4 gm/dl Globulin 2.0 gm/dl Albumin/Globulin Ratio 1.2 Procalcitonin 1.90 ng/ml Test 03/25/17 07:29 03/25/17 11:48 03/25/17 11:52 Random Vancomycin Level 3.9 mcg/ml White Blood Count 15.89 K/uL Red Blood Count 3.07 M/uL Hemoglobin 9.6 g/dL Hematocrit 26.6 % Mean Corpuscular Volume 86.6 fL Mean Corpuscular Hemoglobin 31.3 pg Mean Corpuscular Hemoglobin Concent 36.1 g/dl RDW Standard Deviation 50.3 fL RDW Coefficient of Variation 16.3 % Platelet Count 58 K/uL Mean Platelet Volume 9.8 fL
--- NOTE | 2017-03-25 13:21 | Progress Note ---
Internal Med Progress Note Date of Service: Mar 25, 2017. Provider Documentation: SUBJECTIVE: The patient was seen and examined Was transferred to ICU the night of due to ongoing tachycardia ,hypotension and deterioration of general condition Complains of some abdominal pain and palpitation on 03/24 AM in ICU Much better today ,minimal back pain and nausea OOB in a chair OBJECTIVE: Vital Signs-as noted below Exam: General-pale and in without any distress at rest Eyes-Normal; ENT-normal Neck-supple Lungs-Decreased breath sound bilaterally at the bases Heart-Regular Abdomen-Benign,mildly tender LLQ and epigastrium Extremities-No edema Neuro-AAOx3 Generally weak and lethargic Lab data as noted below. ASSESSMENT & PLAN: Hypotension: Post procedural Hypovolemic Shock Causes could be Hypovolemia,Blood loss,sepsis and or Cardiac Could be the cause of Increased Lactate and Procalcitonin Started on Broad spectrum antibiotics Did not require any Pressors yet Volume replacement with NS and Blood as needed Monitor in ICU Improved now Antibiotic will be deescalated as per [employer] recommendation Blood cultures pending Persistent Tachycardia/HOCM Could be secondary as mentioned earlier Can be primary due to HOCM Small dose of BB May need Cardiology evaluation Serial Martina to R/O any ACS ECHO::The left ventricle is hyperdynamic. * Ejection Fraction = >70 %. * The echo findings are consistent with hypertrophic cardiomyopathy. 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 * The septal thickness is 1.7cm. * The right ventricle is hyperdynamic. * There is systolic anterior motion of the mitral valve. * There is moderate mitral regurgitation. Received BB and rate is improving Acute blood loss anemia complicated by Retroperitoneal Bleed Her hemoglobin dropped to 6.5 from 14.7 prior to surgery. She has had about 1800 mL of blood loss during the procedure, she got 2 units of blood transfusion. Getting 2 more Units this morning-in total [address] of the Abdomen to evaluate LLQ pain -retroperitoneal bleed Hb >9 Acute Renal Failure Creatinine went up due volume loss s/o surgery Improved with Fluid replacement Status post lumbar decompression and fusion. The management will be as per orthopedic surgeon. Rheumatoid arthritis. She has been on prednisone 5 mg daily, continue with that; and methotrexate will be continued as an outpatient. Got stress dose of Steroid Hyperlipidemia. Continue with statin. Gastrointestinal prophylaxis, Protonix. Deep venous thrombosis prophylaxis as per ortho. Discussed with the and the patient in detailed Answered all of their questions Vital Signs: Date Time Temp Pulse Resp B/P (MAP) Pulse Ox O2 Delivery O2 Flow Rate FiO2 03/25/17 09:00 87 18 98 Nasal Cannula 2.0 03/25/17 08:42 92 29 153/81 (105) 96 03/25/17 08:37 98 28 139/98 (112) 90 Nasal Cannula 2.0 03/25/17 08:01 97 18 148/88 (108) 98 03/25/17 08:00 37.0 94 10 97 Nasal Cannula 2.0 03/25/17 08:00 Nasal Cannula 03/25/17 08:00 97 Nasal Cannula 2.0 03/25/17 07:00 96 18 136/76 (96) 96 03/25/17 06:00 100 18 140/74 (96) 96 Nasal Cannula 2.0 03/25/17 04:00 36.9 93 22 143/70 (94) 96 Nasal Cannula 2.0 03/25/17 04:00 95 Nasal Cannula 2.0 03/25/17 02:00 91 15 140/84 (102) 95 Nasal Cannula 2.0 03/25/17 00:00 37.0 95 16 133/71 (91) 95 Nasal Cannula 2.0 03/25/17 00:00 96 Nasal Cannula 2.0 03/24/17 22:00 102 16 127/60 (82) 96 Nasal Cannula 2.0 03/24/17 20:00 97 Nasal Cannula 2.0 03/24/17 20:00 36.8 105 18 128/63 (84) 97 Nasal Cannula 2.0 03/24/17 18:00 141/75 (97) 03/24/17 17:12 36.6 109 23 128/63 (84) 96 Nasal Cannula 2.0 03/24/17 16:00 97 Nasal Cannula 2.0 03/24/17 16:00 36.6 109 23 134/68 (90) 96 Nasal Cannula 2.0 03/24/17 14:00 36.7 109 21 117/66 (83) 95 Nasal Cannula Lab Results: Results Past 24 Hours Test 03/24/17 16:04 03/24/17 18:18 03/24/17 21:21 03/24/17 23:58 Range/Units Bedside Glucose 141 168 167 70-90 mg/dl White Blood Count 17.26 4.8-10.8 K/uL Red Blood Count 3.47 4.2-5.4 M/uL Hemoglobin 10.5 12.0-16.0 g/dL Hematocrit 29.9 37-47 % Mean Corpuscular Volume 86.2 80-100 fL Mean Corpuscular Hemoglobin 30.3 25-34 pg Mean Corpuscular Hemoglobin Concent 35.1 32-36 g/dl RDW Standard Deviation 47.2 36.4-46.3 fL RDW Coefficient of Variation 15.3 11.5-14.5 % Platelet Count 63 130-400 K/uL Mean Platelet Volume 10.1 7.4-10.4 fL Troponin I 0.495 0-0.045 ng/ml Test 03/25/17 00:13 03/25/17 00:27 03/25/17 04:01 03/25/17 06:03 Range/Units White Blood Count 17.36 16.43 4.8-10.8 K/uL Red Blood Count 3.36 3.24 4.2-5.4 M/uL Hemoglobin 10.5 9.6 12.0-16.0 g/dL Hematocrit 29.2 28.2 37-47 % Mean Corpuscular Volume 86.9 87.0 80-100 fL Mean Corpuscular Hemoglobin 31.3 29.6 25-34 pg Mean Corpuscular Hemoglobin Concent 36.0 34.0 32-36 g/dl RDW Standard Deviation 48.9 50.0 36.4-46.3 fL RDW Coefficient of Variation 15.7 15.9 11.5-14.5 % Platelet Count 60 59 130-400 K/uL Mean Platelet Volume 9.6 10.2 7.4-10.4 fL Troponin I 0.515 0.540 0-0.045 ng/ml Lactic Acid Level 2.3 1.3 0.4-2.0 mmol/L Bedside Glucose 124 70-90 mg/dl Sodium Level 139 136-145 mmol/L Potassium Level 3.8 3.5-5.1 mmol/L Chloride Level 111 98-107 mmol/L Carbon Dioxide Level 24 21-32 mmol/L Anion Gap 4.0 3-11 mmol/L Blood Urea Nitrogen 9 7-18 mg/dl Creatinine 0.66 0.60-1.20 mg/dl Est Creatinine Clear Calc Drug Dose 58.3 ml/min Estimated GFR () 100.2 Estimated GFR (Non- 86.4 BUN/Creatinine Ratio 13.3 10-20 Random Glucose 130 70-99 mg/dl Calcium Level 7.5 8.5-10.1 mg/dl Phosphorus Level 1.6 2.5-4.9 mg/dl Magnesium Level 2.1 1.8-2.4 mg/dl Total Bilirubin 0.7 0.2-1 mg/dl Aspartate Amino Transf (AST/SGOT) 62 15-37 U/L Alanine Aminotransferase (ALT/SGPT) 34 12-78 U/L Alkaline Phosphatase 57 45-117 U/L Total Protein 4.4 6.4-8.2 gm/dl Albumin 2.4 3.4-5.0 gm/dl Globulin 2.0 2.5-4.0 gm/dl Albumin/Globulin Ratio 1.2 0.9-2 Procalcitonin 1.90 0-0.5 ng/ml Test 03/25/17 07:29 03/25/17 11:48 03/25/17 11:52 Range/Units Random Vancomycin Level 3.9 mcg/ml White Blood Count 15.89 4.8-10.8 K/uL Red Blood Count 3.07 4.2-5.4 M/uL Hemoglobin 9.6 12.0-16.0 g/dL Hematocrit 26.6 37-47 % Mean Corpuscular Volume 86.6 80-100 fL Mean Corpuscular Hemoglobin 31.3 25-34 pg Mean Corpuscular Hemoglobin Concent 36.1 32-36 g/dl RDW Standard Deviation 50.3 36.4-46.3 fL RDW Coefficient of Variation 16.3 11.5-14.5 % Platelet Count 58 130-400 K/uL Mean Platelet Volume 9.8 7.4-10.4 fL Troponin I 0.483 0-0.045 ng/ml Lactic Acid Level 2.0 0.4-2.0 mmol/L
--- NOTE | 2017-03-25 13:38 | Clinical Documentation Query ---
CLINICAL VALIDATION QUERY The operative record notes a diagnosis of Scoliosis. Our coding professionals will not code this diagnosis unless there is clinical validation of its treatment. To better support the diagnosis and capture its' associated severity please provide clinical validation in Operative Record, Progress notes and DC summary. For Example: *"Degenerative Scoliosis complicating spinal fusion" *"Special care and extra time was involved in trying to correct Degenerative Scoliosis during the procedure." *"Rods were manipulated to correct Degenerative Scoliosis." Otherwise the significance of this diagnosis and its associated severity will not be captured. IF IN AGREEMENT, YOU MUST DOCUMENT ABOVE DIAGNOSTIC STATEMENT IN DAILY PROGRESS NOTES AND DISCHARGE SUMMARY. This document is not part of the patient's record. Thank You, Doris Shahid RN [phone]
--- NOTE | 2017-03-25 14:38 | CARDIOLOGY CONSULTATION ---
DATE OF CONSULTATION: 03/25/2017 INDICATIONS: Elevated troponin, history of hypertrophic cardiomyopathy, chronic left bundle branch block. HISTORY OF PRESENT ILLNESS: The patient is a 76-year-old female whose history is notable for well documented hypertrophic obstructive cardiomyopathy with associated mitral valve prolapse and mitral insufficiency, chronic left bundle branch block, history of chronic rheumatoid arthritis. The patient is referred now postoperatively having undergone lumbar laminectomy and fusion. She was examined in the ICU where she was admitted postoperatively for acute blood loss anemia and hypertension, evidence of extraperitoneal hemorrhage on abdominal CT. Patient currently denies any acute complaints, did note back pain and upper epigastric pain last night which she felt was possible indigestion discomfort and was out of bed to chair earlier. Notes no tachypalpitations, syncope or near syncope, was noted to be "pale" by her own description which resulted in fluids and blood transfusions. The patient received 4 units of packed red cells since admission. Laboratory studies today demonstrated mild trending upward of troponins to a peak of 0.5. She is referred now for further assessment. As described currently she denies any acute complaints, notes no dizziness or lightheadedness. She is lying supine and comfortable without shortness of breath. Notes no fevers or chills. Postoperative pain is controlled. Feels appetite is improving. ALLERGIES: MULTIPLE AND INCLUDE ACTIFED, AMOXICILLIN, ANTIPYRINE, AUGMENTIN, BEE STINGS, CELEXA, CITALOPRAM, CLARITHROMYCIN, CYTOTEC, NEXIUM, PLAQUENIL, PSEUDOEPHEDRINE, SULFA, SYMPATHOMIMETICS AND TRAMADOL PER RECORDS. MEDICATIONS: Prior to hospitalization were Flexeril 10 mg p.o. daily, prednisone 5 mg daily, metoprolol succinate 50 mg twice per day, atorvastatin 10 mg p.o. daily, omega 3 fish oils 1200 mg daily, methotrexate 2.5 mg 6 tablets daily, folic acid 800 mcg 2 tablets per day, lorazepam 0.5 mg twice per day, Protonix 40 mg p.o. daily, cetirizine 10 mg per day, vitamin D 1000 units daily, calcium with vitamin D supplements 1 tablet 3 times per day, aspirin 81 mg per day, multivitamin per day. PAST SURGICAL HISTORY: Notable for prior right breast needle biopsy in 2008, remote appendectomy, tonsillectomy, and Bartholin cyst resection. FAMILY HISTORY: Positive for heart disease in mother with heart and stroke. Father has history of also heart disease. SOCIAL HISTORY: The patient resides locally. She is a nonsmoker, nondrinker. Generally, activities are limited by chronic back disease. She is a resident of the [facility]. PHYSICAL EXAMINATION: VITAL SIGNS: Heart rate currently is 80, blood pressure is 153/71, pulse ox is 92% on 2 liters nasal cannula. HEENT: Normocephalic and atraumatic. Nares without discharge. Throat was clear. NECK: Supple without thyromegaly, lymphadenopathy, JVD. There are no carotid bruits audible. LUNGS: Revealed clear air gooden on auscultation. CARDIOVASCULAR: Regular with a grade 2-3/6 holosystolic murmur heard best at the left lateral mid axillary line. There is no diastolic murmur. ABDOMEN: Soft, nontender. There is no rebound or guarding. EXTREMITIES: Without cyanosis or clubbing. There is no peripheral edema. NEUROLOGIC: The patient is alert and oriented. Answering questions appropriately. LABORATORY DATA: Laboratory studies on 03/25 hemoglobin improved to 9.6. Sodium is 139, potassium is 3.8, chloride is 111, bicarbonate is 24, BUN is 9, creatinine 0.66. Troponins since admission have been checked serially peaking at 0.54 this morning. EKGs reveal chronic left bundle branch block. Telemetry has demonstrated sinus and sinus tachycardia. Echocardiogram demonstrates an extremely hyperdynamic left ventricle. EF greater than 70% with basilar septal thickening of 1.7 cm, right ventricular function is hyperdynamic as well. IMPRESSION: A 76-year-old female with underlying history of known hypertrophic cardiomyopathy, chronic left bundle branch block who underwent spinal surgery with postoperative note of acute retroperitoneal hemorrhage and blood loss, postoperative anemia, hemoglobin minimum of 6.5, now clinically improving with fluid and blood resuscitation and additional beta blockers. Troponins are elevated as to a mild degree as expected and acute findings. This does not suggest an acute coronary syndrome. The patient is currently comfortable. Would continue increased dose of metoprolol tartrate though noting patient's prehospitalization medication was metoprolol succinate. We will follow along in hospital, follow carefully for signs or symptoms of GI intolerance, her past history as well as adrenal insufficiency given chronic corticosteroid use. Current dosing of metoprolol is appropriate at 100 mg b.i.d., though additional may be administered if heart rate increases. Echocardiogram demonstrates a very hyperdynamic LV function and no signs or symptoms of acute wall motion abnormalities or ischemia. MTDD
[2017-03-25] MEDS: CEFTRIAXONE SOD INJ 1000 MG in DEXTROSE 5% 50ML IV SCH (17:22)
[2017-03-25 18:12] LABS: HEMATOCRIT 27.4 % (37-47); MEAN CELL VOLUME 87.8 fL (80-100); MEAN CORPUSCULAR HEMOGLOBIN 30.1 pg (25-34); MEAN CORPUSCULAR HGB CONC 34.3 g/dl (32-36); RED BLOOD COUNT 3.12 M/uL (4.2-5.4); WHITE BLOOD COUNT 15.66 K/uL (4.8-10.8)
[2017-03-25 18:27] LABS: MEAN PLATELET VOLUME 10.6 fL (7.4-10.4); PLATELET COUNT 65 K/uL (130-400)
[2017-03-25] MEDS: CETIRIZINE HCL 10 MG TAB PO SCH (21:01)
[2017-03-25] MEDS: DOCUSATE SODIUM/SENNA 50/8.6MG TAB PO SCH (21:01)
[2017-03-25] MEDS ORDERED: VANCOMYCIN INJ 750 MG in SODIUM CHLORIDE 0.9% 250ML 250 ML IV SCH (22:00)
[2017-03-26] VITALS (11 sets, daily range): BP systolic 130–170; BP diastolic 64–84; PULSE 67–85; TEMP 36.4–36.9; O2SAT 0–98
[2017-03-26 00:31] LABS: MEAN CELL VOLUME 87.8 fL (80-100); MEAN CORPUSCULAR HEMOGLOBIN 31.1 pg (25-34); MEAN CORPUSCULAR HGB CONC 35.4 g/dl (32-36); RED BLOOD COUNT 2.96 M/uL (4.2-5.4); WHITE BLOOD COUNT 12.66 K/uL (4.8-10.8)
[2017-03-26 00:33] LABS: MEAN PLATELET VOLUME 11.1 fL (7.4-10.4); PLATELET COUNT 53 K/uL (130-400)
[2017-03-26] MEDS: SODIUM CHLORIDE 0.9% 1000ML 1,000 ML IV SCH ×2 (00:45→09:15)
[2017-03-26] MEDS: OXYCODONE HCL IR 5 MG TAB (IMMEDIATE RELEASE) PO PRN ×3 (02:42→15:48)
[2017-03-26 05:57] LABS: HEMATOCRIT 29.3 % (37-47); MEAN CELL VOLUME 88.3 fL (80-100); MEAN CORPUSCULAR HEMOGLOBIN 29.8 pg (25-34); MEAN CORPUSCULAR HGB CONC 33.8 g/dl (32-36); RED BLOOD COUNT 3.32 M/uL (4.2-5.4); WHITE BLOOD COUNT 13.39 K/uL (4.8-10.8)
[2017-03-26 06:07] LABS: MEAN PLATELET VOLUME 9.9 fL (7.4-10.4); PLATELET COUNT 69 K/uL (130-400)
[2017-03-26 06:24] LABS: BUN/CREATININE RATIO 12.3 (10-20); CALCIUM 7.4 mg/dl (8.5-10.1); CREATININE 0.6 mg/dl (0.60-1.20); MAGNESIUM 1.7 mg/dl (1.8-2.4); POTASSIUM 3.3 mmol/L (3.5-5.1)
[2017-03-26] MEDS: POLYETHYLENE (MIRALAX) 17 GM PACK PO SCH (06:30)
[2017-03-26 06:37] LABS: PHOSPHORUS 0.8 mg/dl (2.5-4.9)
[2017-03-26] MEDS: ONDANSETRON INJ 2 MG/ML 2 ML VIAL IV PRN ×2 (06:40→15:48)
[2017-03-26] MEDS: INSULIN ASPART 100 UNITS/ML 3 ML PEN SC SCH ×4 (06:45→21:00)
[2017-03-26] MEDS: SENNA 8.6 MG TAB PO SCH ×2 (07:29→19:58)
[2017-03-26] MEDS ORDERED: MAGNESIUM SULFATE 1GM / D5W 1 GM in PREMIXED IN D5W 100 ML IV STA (08:30)
[2017-03-26] MEDS ORDERED: CALCIUM GLUCONATE 10% 1,000 MG in SODIUM CHLORIDE 0.9% 50ML 50 ML IV STA (08:30)
[2017-03-26] MEDS ORDERED: INSULIN GLARGINE SOLOSTAR 100 UNITS/ML 3 ML PEN SC SCH (09:00)
[2017-03-26] MEDS: POT PHOSPHATE MONOBASIC W/ SOD TAB PO SCH ×4 (09:00→19:58)
[2017-03-26] MEDS: CEROVITE ADV FORMULA TAB PO SCH (09:23)
[2017-03-26] MEDS: METOPROLOL TARTRATE 100 MG TAB PO SCH (09:24)
[2017-03-26] MEDS: PANTOprazole SOD 40 MG TAB PO SCH (09:24)
[2017-03-26] MEDS: FLUTICASONE PROPIONATE NA SPR 16 GM BTL NAE SCH (09:24)
[2017-03-26] MEDS: POTASSIUM CHLR 10 MEQ / WTR 10 MEQ in PREMIXED WATER 100 ML IV SCH ×3 (09:40→11:30)
[2017-03-26] MEDS: METRONIDAZOLE / NSS 500 MG in PREMIXED NSS 100 ML IV SCH ×2 (09:40→15:43)
[2017-03-26] MEDS ORDERED: METOPROLOL SUCC 50MG EXT REL TAB PO STA (09:59)
--- NOTE | 2017-03-26 10:50 | Pharmacy Progress Note ---
Glycemic: Assessment & Plan Date of Service Mar 26, 2017. Assessment & Plan ASSESSMENT: * Patient underwent elective lumbar decompression / fusion, POD #3 * Admitted to ICU s/p surgery due to blood loss/hypotension * She has no prior dx of diabetes and recent A1c 5.3 consistent with this * BSGs elevated due to high dose steroids and critical status and basal/bolus regimen initiated * BSGs responded well and have been trending down to Fasting BSG 72 this AM * Discontinue basal insulin * Remove carb ratio and use correctional Novolog only PLAN FOR INPATIENT GLYCEMIC CONTROL: * Discontinue Lantus * Novolog SQ ACHS * Continue correction factor 35 mg/dl/unit * Remove carb ratio * Goal range Low 140 mg/dL - High 180 mg/dL Pharmacy will continue to monitor patient daily and write orders per [facility] inpatient glycemic control protocol. Thanks. * Please note that the plan above was derived based on current level of insulin resistance and hospital stress. These recommendations are appropriate for inpatient admission only. Plan of care upon discharge will need to be reassessed to avoid potential outpatient hypo/hyperglycemia.
--- NOTE | 2017-03-26 11:17 | CARDIOLOGY PROGRESS NOTE ---
DATE: 03/26/2017 DATE: 03/26/2017 The patient seen and examined. Chart, medications, telemetry reviewed. SUBJECTIVE: This morning noted nausea throughout the night but notes no chest pain or discomfort. Notes no dizziness or lightheadedness. Appetite has been generally poor, but overall feels she is getting stronger. Was out of bed to chair and bathroom this morning. Notes no fevers or chills. Notes no melena or hematochezia. PHYSICAL EXAMINATION: VITAL SIGNS: Heart rate 78, blood pressure is 170/72. HEAD, EYES, EARS, NOSE, AND THROAT: Normocephalic, atraumatic. NECK: Thin. There is no jugular venous distention. Overall complexion is pale. LUNGS: Clear to auscultation. CARDIOVASCULAR: Regular, grade 2/6 or greater murmur at the apex. There is no diastolic murmur. There is no S3 gallop. ABDOMEN: Soft. EXTREMITIES: Without cyanosis or clubbing. There is no edema. There are intact distal pulses. LABORATORY DATA: Sodium is 137, potassium is 3.3, chloride is 106, bicarb is 26, BUN 7, creatinine 0.6, phosphorus is 0.8. Troponin is 0.269. White cell count is 13.3, hemoglobin is 9.9. Telemetry reveals no arrhythmias. IMPRESSION: A 76-year-old female with history of hypertrophic cardiomyopathy in the ICU now recovering after post-surgical anemia hemorrhage with hypotension. Troponins are elevated, though likely reflect acute stressors of event rather than myocardial ischemia or injury. PLAN: Will change metoprolol back to metoprolol succinate per previously administered prior to hospitalization, though at increased dosing. This may ultimately need to be decreased, though will continue with 100 mg twice per day with an additional 50 mg currently. Recommend supplementing phosphorus and potassium as already ordered. Follow GI complaints closely. Will continue to follow in the hospital.
--- NOTE | 2017-03-26 14:43 | Progress Note ---
Progress Note Date of Service Mar 26, 2017. Progress Note Patient's back pain is controlled. Leg symptoms improved. Vital signs are stable. On exam she is interior bedside is [place] strength testing bilateral x- rays. Assessment status post multilevel lumbar depression fusion replant this time she is transferred to the regular telemetry unit in hopes of progressed to the orthopedic 4 next there so. We are strongly considering rehabilitation placement.
--- NOTE | 2017-03-26 14:59 | Critical Care Progress Note ---
Critical Care Progress Note Date of Service Mar 26, 2017. ICU Day ICU Day Number: [address] Jones Subjective Patient is a 76-year-old female initially admitted to the ICU secondary to acute blood loss anemia and hypovolemia. The patient had an uneventful night. She reports that she still has some mild back discomfort, but overall feels better. She's had occasional episodes of nausea which have resolved with medication. She offers no other complaints at this point. Objective VITAL SIGNS - Vital signs and nursing notes were reviewed. GENERAL - 76-year-old female appearing her stated age who is in no acute distress. Communicates well with provider and answers questions appropriately. SKIN - Without rashes. HEAD - NC/AT. EYES - PERRL with EOMI bilaterally. Sclera anicteric. NECK - Neck with FROM. Supple to palpation. LUNGS - Chest wall symmetric without accessory muscle use, intercostals retractions, or central cyanosis. Normal vesicular breath sounds CTA B/L. No wheezes, rales, or rhonchi appreciated. CARDIAC - RRR with S1/S2. Systolic murmur appreciated in the LEFT side chest. No murmur, rubs, or gallops appreciated. ABDOMEN - Abdominal contour flat without pulsations or visible masses. BS normoactive all four quadrants. Mild TTP noted in the LLE. No palpable masses, hepatosplenomegaly, or ascites noted. EXTREMITIES - No clubbing or peripheral cyanosis. No pretibial edema present. +3 /5 radial and dorsalis pedis pulses palpated throughout. +5/5 strength noted in UE/LE bilaterally. NEUROLOGIC - Cranial nerves II through XII grossly intact. Sensory intact to light touch throughout. Tremor of the jaw appreciated. PSYCH - A&Ox3 and cooperates fully with examiner. Pt is very pleasant and interacts well with examiner. Current SOFA Score SOFA Score Response (Comments) Value Platelets (x10) < 100 2 Bilirubin (mg/dL) < 1.2 0 Mkie Coma Score 15 0 Level of Hypotension No Hypotension 0 Creatinine (mg/dL) < 1.2 0 Total 2 Previous SOFA Scores 2 Assessment & Plan (1) HOCM (hypertrophic obstructive cardiomyopathy) (2) Blood loss, postoperative (3) Hypovolemia (4) Tachycardia Reason Critically Ill: 76-year-old female with acute blood loss anemia and hypovolemia status post lumbar laminectomy and fusion. Neuro - * CAM ICU: NEGATIVE * Status Post Lumbar Laminectomy/Fusion: * Ultram/Tylenol/OxyIR for pain - would use judiciously 2/2 to h/o severe narcotic induced constipation. Cardiac - * History of HOCM: * Cardiology to change metoprolol dosing. * Initial elevation of Troponin - Likely Demand Ischemia. * AM EKGs. * Appreciate Cardiology Consultation. Respiratory - * Will encourage Incentive Spirometry in the setting of recent surgery. * Supplemental O2 as needed. * Continue to monitor pulse oximetry. GI - * History of GERD. * Continue home dose of Protonix. * Extraperitoneal Hemorrhage - will continue to monitor. Appears to have stabilized w/ normalization of H&H over a 24 hour period. * Abdominal Pain - LLQ. * Will continue to treat for diverticulitis. Possible ischemic gut injury 2/2 poor perfusion. Lactic acid has declined suggesting no persistence of ischemia. Will repeat images if no improvement. RENAL/LYTES - * Acute Kidney Injury - Resolved. * Monitor electrolytes daily. Correct appropriately as needed. - * Discontinue Lazo Catheter. Now tolerating OOB activities. ENDO - * No history of DM. * Monitor BSGs in the setting of recent aggressive steroids. * ISS/Insulin gtt per protocol. HEME - * Acute Blood Loss Anemia s/p Surgery. * H&H has seemed to stabilize. * Will continue to trend. Transfuse as needed. * Extraperitoneal Hemorrhage on Abd/Pelvis CT - will continue to monitor. * No intervention necessary at this point. May be considered for worsening s/s. ID - * Broad spectrum antibiotics (Vancomycin/Cefepime/Flagyl) per primary team for concerns of diverticulitis. * Will continue for the next 5 days. LINES/IV ACCESS - * PIVs in place. DVT PROPHYLAXIS - * SCDs * Will defer chemical prophylaxis at this point in the setting of blood loss and Extraperitoneal Hematoma. At this point, the patient is stable for downgrade from the ICU. I have personally spent 35 minutes of critical care time in the direct management of this patient. This is a life/limb threatening event. This includes time spent evaluating patient, direct bedside care, chart review, placing orders, interpretation of diagnostic studies, discussion with consultants, patient, and family members, as well as other required patient management activities. This time is exclusive of all separately billable procedures, and teaching time and separate from and in addition to any other critical care service time. Thank you for this consultation allow us to be part of this patient's care. Please refer to my attending physician's documentation for any further recommendations. Attending Physician Supervision Note: I was present with Yves Joseph PA-C during the history and exam. I discussed the case with the PA and agree with the findings and plan as documented in the note. Any exceptions or clarifications are listed here: Patient POD#3 s/p L2-S1 laminectomy and fusion. has h/o HOCM, HTN, IBS, She deteriorated overnight post-op, with tachycardia and hypotension, remaining anemic despite receiving 2 units PRBC that day. Hb went from 14.7 preop to 6.5 post-op. Received 2 units PRBC post-op, went up to 10.8 but dropped to 8.1. After 2 more units the day after, it went up to 11.5. Now the hemoglobin stabilized in mid 9s. She is hemodynamically stable, HR much improved, not further hypotension Lactic acid cleared Monitor QUEENIE drain output, remained stable, around 60 cc/day CT scan reviewed with the radiologist. She has a small amount of intra and retroperitoneal fluid, probably blood. Also noted diverticulosis without inflammation. If she continues to worsen, will re-check the CT scan to assess for ongoing bleeding, but so far it doesn't seem to be the case On empiric Abx for now. Low threshold to discontinue, this does not seem to be a septic shock picture. May change though to Rocephin and Flagyl for now, I would stop after a total of 5 days Troponin elevation in my opinion represents demand ischemia, secondary to anemia , hypotension and tachycardia. We shall not treat this empirically for DC with ASA, anticoagulation. Trend troponin, peaked and now trending down. It is also important to lower the heart rate given that she has HOCM. Will continue intravascular volume expansion with IV fluids, but will also continue the patient on beta-blockers Deescalated steroids DVT prophylaxis: SCDs, no anticoagulation for now Critical care time spent greater than 25 minutes May be transferred to a monitored floor, will sign off from a critical care standpoint Documented By: Vernon Jones MD Consults & Procedures Consultants: Spine Surgery - Dr. Fernandes Hospitalist - Dr. Harris Cardiology - Dr. Juarez Procedures: None at this point. Data Medications: Current Inpatient Medications Medications (Trade) Dose Ordered Sig/Taylor Route Start Time Stop Time Status Last Admin Dose Admin Promethazine HCl 12.5 mg/Sodium Chloride 50.5 ml @ 202 mls/hr Q6H PRN IV 03/23/17 13:15 04/22/17 13:14 Ondansetron HCl (Zofran Inj) 4 mg Q6H PRN IV 03/23/17 13:15 04/22/17 13:14 03/26/17 06:40 4 MG Metoclopramide HCl (Reglan Inj) 10 mg Q6H PRN IV 03/23/17 13:15 04/22/17 13:14 03/23/17 18:43 10 MG Lorazepam (Ativan Tab) 0.5 mg Q8H PRN PO 03/23/17 13:15 04/22/17 13:14 Lorazepam 0.5 mg/ Syringe 0.25 ml @ 1 mls/min Q8H PRN IV 03/23/17 13:15 04/22/17 13:14 Bisacodyl (Dulcolax Supp) 10 mg DAILY PRN MS 03/23/17 13:15 04/22/17 13:14 Oxycodone HCl (Roxicodone Immediate Rel Tab) 5-10mg prn moderate to sev... Q4H PRN PO 03/24/17 06:00 04/07/17 05:59 03/26/17 09:51 10 MG Acetaminophen (Tylenol Tab) 1,000 mg Q8H PRN PO 03/23/17 13:15 04/22/17 13:14 Senna/Docusate Sodium (Senokot S Tab) 2 tab HS PO 03/23/17 21:00 04/22/17 20:59 03/25/17 21:01 2 TAB Sodium Biphosphate/ Sodium Phosphate (Fleet Enema) 132 ml ONE PRN MS 03/23/17 13:15 04/22/17 13:14 Al Hydroxide/Mg Hydroxide (Maalox Susp) 30 ml Q6H PRN PO 03/23/17 13:15 04/22/17 13:14 03/24/17 06:39 30 ML Famotidine (Pepcid Tab) 20 mg Q12 PRN PO 03/23/17 13:15 04/22/17 13:14 Cetirizine HCl (zyrTEC TAB) 10 mg QPM PO 03/23/17 21:00 04/22/17 20:59 03/25/17 21:01 10 MG Fluticasone Propionate (Flonase Nasal [place]) 2 sprays DAILY SAKINA 03/24/17 09:00 04/23/17 08:59 03/26/17 09:24 2 SPRAYS Pantoprazole Sodium (Protonix Tab) 40 mg QAM PO 03/24/17 09:00 04/23/17 08:59 03/26/17 09:24 40 MG Senna (Senokot Tab) 8.6 mg BID PO 03/23/17 21:00 04/22/17 20:59 03/25/17 21:00 8.6 MG Tramadol HCl (Ultram Tab) 50 mg Q6H PRN PO 03/24/17 06:00 04/23/17 05:59 Hydromorphone HCl (Dilaudid Inj) 0.5 mg Q3H PRN IV 03/23/17 22:45 04/06/17 22:44 Multivitamins/ Minerals (Multivitamin W/ Minerals Tab) 1 tab DAILY PO 03/24/17 09:00 04/23/17 08:59 03/26/17 09:23 1 TAB Insulin Aspart (novoLOG ASPART) SLIDING SCALE If C... ACHS SC 03/24/17 06:45 04/23/17 07:59 03/24/17 11:33 1 UNITS Glucose (Glucose 40% Gel) 15-30 GRAMS 15 GRAMS... UD PRN PO 03/24/17 03:00 04/23/17 02:59 Glucose (Glucose Chew Tab) 4-8 Tablets 4 Tabl... UD PRN PO 03/24/17 03:00 04/23/17 02:59 Dextrose (Dextrose 50% 50ML Syringe) 25-50ML OF 50% DW IV FOR... UD PRN IV 03/24/17 03:00 04/23/17 02:59 Glucagon (Glucagon Inj) 1 mg UD PRN SQ 03/24/17 03:00 04/23/17 02:59 Prednisone (PredniSONE TAB) 5 mg QAM PO 03/25/17 09:00 04/23/17 08:59 03/26/17 09:24 5 MG Norepinephrine Bitartrate 8 mg/ Dextrose 508 ml @ 0 mls/hr Q0M PRN IV 03/24/17 05:05 04/23/17 05:04 Metronidazole 500 mg/Prmx 100 ml @ 100 mls/hr Q8H IV 03/24/17 07:00 03/28/17 23:59 03/26/17 09:40 100 MLS/HR Sodium Chloride 1,000 ml @ 50 mls/hr Q20H IV 03/24/17 15:15 04/23/17 15:14 03/26/17 09:15 50 MLS/HR Ceftriaxone Sodium 1 gm/ Dextrose 50 ml @ 100 mls/hr Q24H IV 03/25/17 16:00 03/28/17 23:59 03/25/17 17:22 100 MLS/HR Potassium/ Phosphorus/Sodium (Phospha 250 Neutral 155-852-130 Mg) 1 tab QID PO 03/26/17 09:00 04/25/17 08:59 03/26/17 13:13 1 TAB Metoprolol Succinate (Toprol Xl Tab) 100 mg BID PO 03/26/17 21:00 04/25/17 20:59 I & O: 24-Hour Column 03/27/17 08:00 Intake Total 1271 ml Output Total 1310 ml Balance -39 ml Vital Signs: Date Time Temp Pulse Resp B/P (MAP) Pulse Ox O2 Delivery O2 Flow Rate FiO2 03/26/17 13:23 36.6 69 22 98 2.0 03/26/17 11:30 36.6 69 22 166/78 (107) 98 Nasal Cannula 2.0 03/26/17 11:30 Nasal Cannula 2.0 03/26/17 08:00 Nasal Cannula 03/26/17 07:30 Nasal Cannula 2.0 03/26/17 07:30 36.6 78 22 170/72 (104) 98 Nasal Cannula 2.0 03/26/17 04:01 36.6 72 23 157/79 (105) 97 Nasal Cannula 2.0 03/26/17 03:00 70 16 162/80 (107) 96 Nasal Cannula 2.0 03/26/17 02:01 69 15 139/66 (90) 98 Nasal Cannula 2.0 03/26/17 01:01 67 15 132/64 (86) 98 Nasal Cannula 2.0 03/26/17 00:00 36.7 67 16 158/65 (96) 98 Nasal Cannula 2.0 03/25/17 21:00 82 18 156/83 (107) 96 2.0 03/25/17 20:00 36.7 89 22 159/82 (107) 97 2.0 03/25/17 20:00 Nasal Cannula 2.0 03/25/17 19:00 83 11 161/125 (137) 99 03/25/17 17:00 76 18 97 Nasal Cannula 2.0 03/25/17 16:29 86 12 126/70 (88) 96 03/25/17 16:15 97 Nasal Cannula 2.0 03/25/17 16:00 37.0 74 17 98 03/25/17 15:00 72 18 97 Nasal Cannula 2.0 Laboratory Results: Last 24 Hours Test 03/25/17 16:26 03/25/17 18:06 03/25/17 20:51 03/26/17 00:23 Bedside Glucose 90 mg/dl 83 mg/dl White Blood Count 15.66 K/uL 12.66 K/uL Red Blood Count 3.12 M/uL 2.96 M/uL Hemoglobin 9.4 g/dL 9.2 g/dL Hematocrit 27.4 % 26.0 % Mean Corpuscular Volume 87.8 fL 87.8 fL Mean Corpuscular Hemoglobin 30.1 pg 31.1 pg Mean Corpuscular Hemoglobin Concent 34.3 g/dl 35.4 g/dl RDW Standard Deviation 51.5 fL 51.4 fL RDW Coefficient of Variation 16.3 % 16.1 % Platelet Count 65 K/uL 53 K/uL Mean Platelet Volume 10.6 fL 11.1 fL Lactic Acid Level 1.3 mmol/L Troponin I 0.371 ng/ml 0.307 ng/ml Test 03/26/17 01:42 03/26/17 05:49 03/26/17 06:16 03/26/17 11:19 Lactic Acid Level 1.1 mmol/L 1.4 mmol/L White Blood Count 13.39 K/uL Red Blood Count 3.32 M/uL Hemoglobin 9.9 g/dL Hematocrit 29.3 % Mean Corpuscular Volume 88.3 fL Mean Corpuscular Hemoglobin 29.8 pg Mean Corpuscular Hemoglobin Concent 33.8 g/dl RDW Standard Deviation 51.4 fL RDW Coefficient of Variation 16.0 % Platelet Count 69 K/uL Mean Platelet Volume 9.9 fL Sodium Level 137 mmol/L Potassium Level 3.3 mmol/L Chloride Level 106 mmol/L Carbon Dioxide Level 26 mmol/L Anion Gap 5.0 mmol/L Blood Urea Nitrogen 7 mg/dl Creatinine 0.60 mg/dl Est Creatinine Clear Calc Drug Dose 64.1 ml/min Estimated GFR () 103.3 Estimated GFR (Non- 89.2 BUN/Creatinine Ratio 12.3 Random Glucose 76 mg/dl Calcium Level 7.4 mg/dl Ionized Calcium 1.08 mmol/l Phosphorus Level 0.8 mg/dl Magnesium Level 1.7 mg/dl Total Bilirubin 0.7 mg/dl Aspartate Amino Transf (AST/SGOT) 58 U/L Alanine Aminotransferase (ALT/SGPT) 35 U/L Alkaline Phosphatase 67 U/L Troponin I 0.269 ng/ml Total Protein 4.7 gm/dl Albumin 2.3 gm/dl Globulin 2.4 gm/dl Albumin/Globulin Ratio 1.0 Bedside Glucose 72 mg/dl 81 mg/dl Problem Qualifiers (1) Blood loss, postoperative: Surgical complication system/body Area: musculoskeletal system Procedure type : musculoskeletal Qualified Codes: M96.830 - Postprocedural hemorrhage of a musculoskeletal structure following a musculoskeletal system procedure
[2017-03-26] MEDS: CEFTRIAXONE SOD INJ 1000 MG in DEXTROSE 5% 50ML IV SCH (15:43)
--- NOTE | 2017-03-26 16:34 | Progress Note ---
Internal Med Progress Note Date of Service: Mar 26, 2017. Provider Documentation: SUBJECTIVE: The patient was seen and examined Was transferred to ICU the night of due to ongoing tachycardia ,hypotension and deterioration of general condition Complains of some abdominal pain and palpitation on 03/24 AM in ICU OOB in a chair and PT started Denies any symptoms today OBJECTIVE: Vital Signs-as noted below Exam: General-good color today Eyes-Normal; ENT-normal Neck-supple Lungs-Decreased breath sound bilaterally at the bases Heart-Regular Abdomen-Benign,mildly tender LLQ and epigastrium -better today Extremities-No edema Neuro-AAOx3 Generally weak and lethargic Lab data as noted below. ASSESSMENT & PLAN: Hypotension: Post procedural Hypovolemic Shock Causes could be Hypovolemia,Blood loss,sepsis and or Cardiac Could be the cause of Increased Lactate and Procalcitonin Started on Broad spectrum antibiotics Did not require any Pressors yet Volume replacement with NS and Blood as needed Monitored in ICU,transferred to Tele 03/26/17 Antibiotic will be deescalated as per Quality Internship recommendation Blood cultures -NEGATIVE Has been on Ceftriaxone and Flagyl to cover possible Diverticulitis Electrolytes Imbalance Will supplement and monitor Persistent Tachycardia/HOCM-Improved Could be secondary as mentioned earlier Can be primary due to HOCM Small dose of BB Serial Martina to R/O any ACS ECHO::The left ventricle is hyperdynamic. * Ejection Fraction = >70 %. * The echo findings are consistent with hypertrophic cardiomyopathy. 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 * The septal thickness is 1.7cm. * The right ventricle is hyperdynamic. * There is systolic anterior motion of the mitral valve. * There is moderate mitral regurgitation. Appreciate Cardiology input Received BB and rate is better Acute blood loss anemia complicated by Retroperitoneal Bleed Her hemoglobin dropped to 6.5 from 14.7 prior to surgery. She has had about 1800 mL of blood loss during the procedure, she got 2 units of blood transfusion. Getting 2 more Units this morning-in total [address] of the Abdomen to evaluate LLQ pain -retroperitoneal bleed Hb >9 Acute Renal Failure Creatinine went up due volume loss s/o surgery Improved with Fluid replacement Status post lumbar decompression and fusion. The management will be as per orthopedic surgeon. Rheumatoid arthritis. She has been on prednisone 5 mg daily, continue with that; and methotrexate will be continued as an outpatient. Got stress dose of Steroid Hyperlipidemia. Continue with statin. Gastrointestinal prophylaxis, Protonix. Deep venous thrombosis prophylaxis as per ortho. Discussed with the and the patient in detailed Answered all of their questions Vital Signs: Date Time Temp Pulse Resp B/P (MAP) Pulse Ox O2 Delivery O2 Flow Rate FiO2 03/26/17 16:00 94 Room Air 03/26/17 15:30 36.4 67 22 166/84 (111) 94 Room Air 03/26/17 13:23 36.6 69 22 98 2.0 03/26/17 11:30 36.6 69 22 166/78 (107) 98 Nasal Cannula 2.0 03/26/17 11:30 Nasal Cannula 2.0 03/26/17 08:00 Nasal Cannula 03/26/17 07:30 Nasal Cannula 2.0 03/26/17 07:30 36.6 78 22 170/72 (104) 98 Nasal Cannula 2.0 03/26/17 04:01 36.6 72 23 157/79 (105) 97 Nasal Cannula 2.0 03/26/17 03:00 70 16 162/80 (107) 96 Nasal Cannula 2.0 03/26/17 02:01 69 15 139/66 (90) 98 Nasal Cannula 2.0 03/26/17 01:01 67 15 132/64 (86) 98 Nasal Cannula 2.0 03/26/17 00:00 36.7 67 16 158/65 (96) 98 Nasal Cannula 2.0 03/25/17 21:00 82 18 156/83 (107) 96 2.0 03/25/17 20:00 36.7 89 22 159/82 (107) 97 2.0 03/25/17 20:00 Nasal Cannula 2.0 03/25/17 19:00 83 11 161/125 (137) 99 03/25/17 17:00 76 18 97 Nasal Cannula 2.0 03/25/17 16:29 86 12 126/70 (88) 96 Lab Results: Results Past 24 Hours Test 03/25/17 18:06 03/25/17 20:51 03/26/17 00:23 03/26/17 01:42 Range/Units White Blood Count 15.66 12.66 4.8-10.8 K/uL Red Blood Count 3.12 2.96 4.2-5.4 M/uL Hemoglobin 9.4 9.2 12.0-16.0 g/dL Hematocrit 27.4 26.0 37-47 % Mean Corpuscular Volume 87.8 87.8 80-100 fL Mean Corpuscular Hemoglobin 30.1 31.1 25-34 pg Mean Corpuscular Hemoglobin Concent 34.3 35.4 32-36 g/dl RDW Standard Deviation 51.5 51.4 36.4-46.3 fL RDW Coefficient of Variation 16.3 16.1 11.5-14.5 % Platelet Count 65 53 130-400 K/uL Mean Platelet Volume 10.6 11.1 7.4-10.4 fL Lactic Acid Level 1.3 1.1 0.4-2.0 mmol/L Troponin I 0.371 0.307 0-0.045 ng/ml Bedside Glucose 83 70-90 mg/dl Test 03/26/17 05:49 03/26/17 06:16 03/26/17 11:19 Range/Units White Blood Count 13.39 4.8-10.8 K/uL Red Blood Count 3.32 4.2-5.4 M/uL Hemoglobin 9.9 12.0-16.0 g/dL Hematocrit 29.3 37-47 % Mean Corpuscular Volume 88.3 80-100 fL Mean Corpuscular Hemoglobin 29.8 25-34 pg Mean Corpuscular Hemoglobin Concent 33.8 32-36 g/dl RDW Standard Deviation 51.4 36.4-46.3 fL RDW Coefficient of Variation 16.0 11.5-14.5 % Platelet Count 69 130-400 K/uL Mean Platelet Volume 9.9 7.4-10.4 fL Sodium Level 137 136-145 mmol/L Potassium Level 3.3 3.5-5.1 mmol/L Chloride Level 106 98-107 mmol/L Carbon Dioxide Level 26 21-32 mmol/L Anion Gap 5.0 3-11 mmol/L Blood Urea Nitrogen 7 7-18 mg/dl Creatinine 0.60 0.60-1.20 mg/dl Est Creatinine Clear Calc Drug Dose 64.1 ml/min Estimated GFR () 103.3 Estimated GFR (Non- 89.2 BUN/Creatinine Ratio 12.3 10-20 Random Glucose 76 70-99 mg/dl Lactic Acid Level 1.4 0.4-2.0 mmol/L Calcium Level 7.4 8.5-10.1 mg/dl Ionized Calcium 1.08 1.12-1.32 mmol/l Phosphorus Level 0.8 2.5-4.9 mg/dl Magnesium Level 1.7 1.8-2.4 mg/dl Total Bilirubin 0.7 0.2-1 mg/dl Aspartate Amino Transf (AST/SGOT) 58 15-37 U/L Alanine Aminotransferase (ALT/SGPT) 35 12-78 U/L Alkaline Phosphatase 67 45-117 U/L Troponin I 0.269 0-0.045 ng/ml Total Protein 4.7 6.4-8.2 gm/dl Albumin 2.3 3.4-5.0 gm/dl Globulin 2.4 2.5-4.0 gm/dl Albumin/Globulin Ratio 1.0 0.9-2 Bedside Glucose 72 81 70-90 mg/dl
[2017-03-26 18:23] LABS: COMPLETE YES; EOS % 0.3 %; HEMATOCRIT 32.6 % (37-47); IG% 0.4 %; LYMPH % 7.4 %; LYMPH ABS # 1.23 K/uL (1.2-3.4); MEAN CELL VOLUME 88.1 fL (80-100); MEAN CORPUSCULAR HEMOGLOBIN 31.4 pg (25-34); MEAN CORPUSCULAR HGB CONC 35.6 g/dl (32-36); MEAN PLATELET VOLUME 11.1 fL (7.4-10.4); MONO % 7.8 %; NEUT % 84.1 %; PLATELET COUNT 100 K/uL (130-400); WHITE BLOOD COUNT 16.54 K/uL (4.8-10.8)
[2017-03-26 18:40] LABS: BUN/CREATININE RATIO 8.2 (10-20); CREATININE 0.64 mg/dl (0.60-1.20); MAGNESIUM 1.9 mg/dl (1.8-2.4); POTASSIUM 3.6 mmol/L (3.5-5.1)
[2017-03-26 18:53] LABS: PHOSPHORUS 1.1 mg/dl (2.5-4.9)
[2017-03-26] MEDS: PROMETHAZINE HCL INJ 12.5 MG in SODIUM CHLORIDE 0.9% 50ML 50 ML IV PRN (19:55)
[2017-03-26] MEDS: DOCUSATE SODIUM/SENNA 50/8.6MG TAB PO SCH (19:58)
[2017-03-26] MEDS: METOPROLOL SUCC 50MG EXT REL TAB PO SCH (20:00)
[2017-03-26] MEDS: CETIRIZINE HCL 10 MG TAB PO SCH (20:00)
[2017-03-27] VITALS (8 sets, daily range): BP systolic 118–156; BP diastolic 72–80; PULSE 78–88; TEMP 36.4–36.9; O2SAT 93–98
[2017-03-27] MEDS: METRONIDAZOLE / NSS 500 MG in PREMIXED NSS 100 ML IV SCH ×3 (00:41→17:27)
[2017-03-27] MEDS: ONDANSETRON INJ 2 MG/ML 2 ML VIAL IV PRN ×2 (03:07→17:39)
[2017-03-27 07:00] LABS: HEMATOCRIT 28.7 % (37-47); MEAN CORPUSCULAR HEMOGLOBIN 31.2 pg (25-34); MEAN CORPUSCULAR HGB CONC 35.9 g/dl (32-36); WHITE BLOOD COUNT 10.34 K/uL (4.8-10.8)
[2017-03-27] MEDS: INSULIN ASPART 100 UNITS/ML 3 ML PEN SC SCH ×4 (07:00→20:21)
[2017-03-27 07:16] LABS: MEAN PLATELET VOLUME 9.8 fL (7.4-10.4); PLATELET COUNT 93 K/uL (130-400)
[2017-03-27 07:34] LABS: COMPLETE YES; EOS % 0.8 %; IG% 0.4 %; LYMPH % 8.9 %; LYMPH ABS # 0.92 K/uL (1.2-3.4); MONO % 10.9 %
[2017-03-27] MEDS: POT PHOSPHATE MONOBASIC W/ SOD TAB PO SCH ×4 (07:41→20:17)
[2017-03-27] MEDS: SODIUM CHLORIDE 0.9% 1000ML 1,000 ML IV SCH ×2 (07:41→20:20)
[2017-03-27] MEDS: SENNA 8.6 MG TAB PO SCH ×2 (07:41→20:18)
[2017-03-27] MEDS: PANTOprazole SOD 40 MG TAB PO SCH (07:41)
[2017-03-27] MEDS: CEROVITE ADV FORMULA TAB PO SCH (07:42)
[2017-03-27] MEDS: FLUTICASONE PROPIONATE NA SPR 16 GM BTL NAE SCH (07:43)
[2017-03-27 07:44] LABS: BUN/CREATININE RATIO 11.9 (10-20); CALCIUM 7.7 mg/dl (8.5-10.1); CREATININE 0.36 mg/dl (0.60-1.20); MAGNESIUM 1.4 mg/dl (1.8-2.4); POTASSIUM 2.8 mmol/L (3.5-5.1)
[2017-03-27] MEDS: METOPROLOL SUCC 50MG EXT REL TAB PO SCH ×2 (07:44→20:19)
[2017-03-27 08:07] LABS: ALB/GLOB RATIO 0.9 (0.9-2); PHOSPHORUS 1.6 mg/dl (2.5-4.9)
[2017-03-27] MEDS: METOCLOPRAMIDE HCL INJ 5 MG/ML 2 ML VIAL IV PRN (08:12)
[2017-03-27] MEDS ORDERED: POTASSIUM CHLORIDE 10 MEQ TABCR PO STA (08:35)
[2017-03-27] MEDS ORDERED: POTASSIUM PHOS 3 MMOL/1 ML INFUSION IV STA (08:35)
--- NOTE | 2017-03-27 09:09 | Progress Note ---
Progress Note Date of Service Mar 27, 2017. Progress Note Patient is resting complete. Vital signs are stable. QUEENIE drain decreasing appropriate. Assessment status post LEVEL lumbar depression fusion replant this time we would transfer to the orthopedic floor when okay with medicine. Most likely be able to change dressing discontinued drain Wednesday. Again she most likely be a very good candidate for rehabilitation facility early next week.
[2017-03-27] MEDS ORDERED: POTASSIUM PHOSPHATE INJ 30 MMOL in SODIUM CHLORIDE 0.9% 500ML 500 ML IV ONE (09:30)
[2017-03-27] MEDS: MAGNESIUM SULFATE 1GM / D5W 1 GM in PREMIXED IN D5W 100 ML IV SCH ×2 (10:13→11:55)
--- NOTE | 2017-03-27 12:28 | Pharmacy Progress Note ---
Pharmacy Glycemic Sign Off Nt Date of Service Mar 27, 2017. Assessment & Plan ASSESSMENT: * Pharmacy was consulted on 03/24/17 for glycemic control and to write orders per [facility] inpatient glycemic control protocol. * Major changes made by pharmacy to antidiabetic regimen include: * Lantus given X 3 doses for steroid-induced hyperglycemia * As steroids effects dissipated, regimen tapered appropriately * Patient has been receiving/requiring 0 units of insulin per day for adequate glycemic control * BSGs ranging 72-83 mg/dl * Do not anticipate further changes in patient status that would quickly deteriorate glycemic control (i.e. patient to be NPO for upcoming procedure, steroids tapering, starting tube feedings, etc). PLAN FOR INPATIENT GLYCEMIC CONTROL: No changes needed to current regimen. * No basal insulin necessary * Continue NovoLog per scale ACHS/Q6hrs while NPO * Goal range = 140 -180 mg/dl * CF = 35 mg/dl/unit * Pharmacy is signing off of glycemic consult and will no longer be making adjustments to inpatient regimen. Please feel free to re-consult if needed. Thank you.
--- NOTE | 2017-03-27 14:45 | CARDIOLOGY PROGRESS NOTE ---
DATE: 03/27/2017 DATE: 03/27/2017 The patient seen and examined. Chart, medications, telemetry reviewed. SUBJECTIVE: The patient feels nauseated this morning. Appetite has been poor. Notes no specific pain. Notes no tachypalpitations, dizziness or lightheadedness. OBJECTIVE: VITAL SIGNS: Heart rate is 82. Blood pressure is 138/80. Temperature is 36.6 without elevation. NECK: Thin. There is no jugular venous distention. LUNGS: Clear with mildly diminished breath sounds. CARDIOVASCULAR EXAMINATION: Regular with forceful apical impulse and a grade 2/6 systolic murmur heard best throughout the precordium. ABDOMEN: Soft, nontender. There is no palpable hepatosplenomegaly. There is no hepatojugular reflux. EXTREMITIES: Without cyanosis or clubbing. There is no peripheral edema. LABORATORY STUDIES: Sodium is 137, potassium is 2.8, chloride is 101, bicarb is 27, BUN is 4, creatinine 0.36. Magnesium level was 1.4, calcium 7.7, albumin level is 2.3. IMPRESSION: A 76-year-old female with history of hypertrophic cardiomyopathy seen in the setting of postoperative anemia and hypotension. Laboratory data is improving though she does continue to have electrolyte abnormalities which are being addressed. Recommend continuing magnesium and potassium supplements. Continue oral metoprolol 100 mg twice per day for heart rate and blood pressure control. Will follow patient in the hospital.
[2017-03-27] MEDS: TRAMADOL HCL 50 MG TAB PO PRN (16:26)
[2017-03-27] MEDS: CEFTRIAXONE SOD INJ 1000 MG in DEXTROSE 5% 50ML IV SCH (16:26)
[2017-03-27 18:27] LABS: COMPLETE YES; EOS % 0.3 %; HEMATOCRIT 27.7 % (37-47); IG% 0.6 %; LYMPH % 10.5 %; MEAN CELL VOLUME 87.1 fL (80-100); MEAN CORPUSCULAR HEMOGLOBIN 31.1 pg (25-34); MEAN CORPUSCULAR HGB CONC 35.7 g/dl (32-36); MEAN PLATELET VOLUME 9.8 fL (7.4-10.4); NEUT % 77.6 %; PLATELET COUNT 117 K/uL (130-400); RED BLOOD COUNT 3.18 M/uL (4.2-5.4); WHITE BLOOD COUNT 8.61 K/uL (4.8-10.8)
--- NOTE | 2017-03-27 18:42 | Progress Note ---
Internal Med Progress Note Date of Service: Mar 27, 2017. Provider Documentation: SUBJECTIVE: The patient was seen and examined Was transferred to ICU the night of due to ongoing tachycardia ,hypotension and deterioration of general condition OOB in a chair and PT started Denies any symptoms today except generalized weakness OBJECTIVE: Vital Signs-as noted below Exam: General-good color today No distress at rest Eyes-Normal; ENT-normal Neck-supple Lungs-Decreased breath sound bilaterally at the bases No crackles Heart-Regular Abdomen-Benign,mildly tender LLQ and epigastrium -better today Extremities-No edema Neuro-AAOx3 Generally weak and lethargic Lab data as noted below. ASSESSMENT & PLAN: Hypotension: Post procedural Hypovolemic Shock Causes could be Hypovolemia,Blood loss,sepsis and or Cardiac Could be the cause of Increased Lactate and Procalcitonin Started on Broad spectrum antibiotics Did not require any Pressors yet Volume replacement with NS and Blood as needed Monitored in ICU,transferred to Tele 03/26/17 Antibiotic will be deescalated as per [employer] Normalizer recommendation Blood cultures -NEGATIVE Has been on Ceftriaxone and Flagyl to cover possible Diverticulitis Clinically better Still has some nausea Electrolytes Imbalance Getting supplements Continue Monitoring Persistent Tachycardia/HOCM-Improved Could be secondary as mentioned earlier Can be primary due to HOCM Small dose of BB Serial Martina to R/O any ACS ECHO::The left ventricle is hyperdynamic. * Ejection Fraction = >70 %. * The echo findings are consistent with hypertrophic cardiomyopathy. 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 * The septal thickness is 1.7cm. * The right ventricle is hyperdynamic. * There is systolic anterior motion of the mitral valve. * There is moderate mitral regurgitation. Appreciate Cardiology input Received BB and rate is better Acute blood loss anemia complicated by Retroperitoneal Bleed Her hemoglobin dropped to 6.5 from 14.7 prior to surgery. She has had about 1800 mL of blood loss during the procedure, she got 2 units of blood transfusion. Getting 2 more Units this morning-in total [address] of the Abdomen to evaluate LLQ pain -retroperitoneal bleed Hb >9 on 03/27/17 Acute Renal Failure Creatinine went up due volume loss s/o surgery Improved with Fluid replacement Status post lumbar decompression and fusion. The management will be as per orthopedic surgeon. Rheumatoid arthritis. She has been on prednisone 5 mg daily, continue with that; and methotrexate will be continued as an outpatient. Got stress dose of Steroid Hyperlipidemia. Continue with statin. Gastrointestinal prophylaxis, Protonix. Deep venous thrombosis prophylaxis as per ortho. Discussed with the and the patient in detailed Answered all of their questions Vital Signs: Date Time Temp Pulse Resp B/P (MAP) Pulse Ox O2 Delivery O2 Flow Rate FiO2 03/27/17 15:47 36.9 88 22 118/72 (87) 96 Room Air 03/27/17 12:07 36.6 82 18 138/80 (99) 98 Room Air 03/27/17 12:00 Room Air 03/27/17 08:00 Room Air 03/27/17 07:58 36.6 83 18 156/77 (103) 96 Room Air 03/27/17 04:00 Room Air 03/27/17 02:41 36.4 84 19 132/79 (96) 96 Room Air 03/26/17 23:59 36.9 85 18 130/79 (96) 94 Room Air 03/26/17 23:59 Room Air 03/26/17 20:00 Room Air 03/26/17 19:17 36.7 82 20 139/76 (97) 94 Room Air Lab Results: Results Past 24 Hours Test 03/26/17 20:34 03/27/17 06:29 03/27/17 06:42 03/27/17 11:07 Range/Units Bedside Glucose 85 83 115 70-90 mg/dl White Blood Count 10.34 4.8-10.8 K/uL Red Blood Count 3.30 4.2-5.4 M/uL Hemoglobin 10.3 12.0-16.0 g/dL Hematocrit 28.7 37-47 % Mean Corpuscular Volume 87.0 80-100 fL Mean Corpuscular Hemoglobin 31.2 25-34 pg Mean Corpuscular Hemoglobin Concent 35.9 32-36 g/dl Platelet Count 93 130-400 K/uL Mean Platelet Volume 9.8 7.4-10.4 fL Neutrophils (%) (Auto) 79.0 % Lymphocytes (%) (Auto) 8.9 % Monocytes (%) (Auto) 10.9 % Eosinophils (%) (Auto) 0.8 % Basophils (%) (Auto) 0.0 % Neutrophils # (Auto) 8.17 1.4-6.5 K/uL Lymphocytes # (Auto) 0.92 1.2-3.4 K/uL Monocytes # (Auto) 1.13 0.11-0.59 K/uL Eosinophils # (Auto) 0.08 0-0.5 K/uL Basophils # (Auto) 0.00 0-0.2 K/uL RDW Standard Deviation 49.5 36.4-46.3 fL RDW Coefficient of Variation 15.7 11.5-14.5 % Immature Granulocyte % (Auto) 0.4 % Immature Granulocyte # (Auto) 0.04 0.00-0.02 K/uL Sodium Level 137 136-145 mmol/L Potassium Level 2.8 3.5-5.1 mmol/L Chloride Level 101 98-107 mmol/L Carbon Dioxide Level 27 21-32 mmol/L Anion Gap 9.0 3-11 mmol/L Blood Urea Nitrogen 4 7-18 mg/dl Creatinine 0.36 0.60-1.20 mg/dl Est Creatinine Clear Calc Drug Dose 106.8 ml/min Estimated GFR () 122.3 Estimated GFR (Non- 105.5 BUN/Creatinine Ratio 11.9 10-20 Random Glucose 85 70-99 mg/dl Calcium Level 7.7 8.5-10.1 mg/dl Ionized Calcium 1.03 1.12-1.32 mmol/l Phosphorus Level 1.6 2.5-4.9 mg/dl Magnesium Level 1.4 1.8-2.4 mg/dl Total Bilirubin 1.1 0.2-1 mg/dl Aspartate Amino Transf (AST/SGOT) 41 15-37 U/L Alanine Aminotransferase (ALT/SGPT) 33 12-78 U/L Alkaline Phosphatase 65 45-117 U/L Total Protein 4.7 6.4-8.2 gm/dl Albumin 2.3 3.4-5.0 gm/dl Globulin 2.4 2.5-4.0 gm/dl Albumin/Globulin Ratio 0.9 0.9-2 Test 03/27/17 16:14 03/27/17 18:18 Range/Units Bedside Glucose 107 70-90 mg/dl White Blood Count 8.61 4.8-10.8 K/uL Red Blood Count 3.18 4.2-5.4 M/uL Hemoglobin 9.9 12.0-16.0 g/dL Hematocrit 27.7 37-47 % Mean Corpuscular Volume 87.1 80-100 fL Mean Corpuscular Hemoglobin 31.1 25-34 pg Mean Corpuscular Hemoglobin Concent 35.7 32-36 g/dl Platelet Count 117 130-400 K/uL Mean Platelet Volume 9.8 7.4-10.4 fL Neutrophils (%) (Auto) 77.6 % Lymphocytes (%) (Auto) 10.5 % Monocytes (%) (Auto) 11.0 % Eosinophils (%) (Auto) 0.3 % Basophils (%) (Auto) 0.0 % Neutrophils # (Auto) 6.68 1.4-6.5 K/uL Lymphocytes # (Auto) 0.90 1.2-3.4 K/uL Monocytes # (Auto) 0.95 0.11-0.59 K/uL Eosinophils # (Auto) 0.03 0-0.5 K/uL Basophils # (Auto) 0.00 0-0.2 K/uL RDW Standard Deviation 48.5 36.4-46.3 fL RDW Coefficient of Variation 15.6 11.5-14.5 % Immature Granulocyte % (Auto) 0.6 % Immature Granulocyte # (Auto) 0.05 0.00-0.02 K/uL Ionized Calcium 0.99 1.12-1.32 mmol/l
[2017-03-27 18:47] LABS: BUN/CREATININE RATIO 12.8 (10-20); CALCIUM 7.3 mg/dl (8.5-10.1); CREATININE 0.39 mg/dl (0.60-1.20); MAGNESIUM 1.8 mg/dl (1.8-2.4); POTASSIUM 3.5 mmol/L (3.5-5.1)
[2017-03-27 18:52] LABS: PHOSPHORUS 2.7 mg/dl (2.5-4.9)
[2017-03-27] MEDS: DOCUSATE SODIUM/SENNA 50/8.6MG TAB PO SCH (20:18)
[2017-03-27] MEDS: CETIRIZINE HCL 10 MG TAB PO SCH (20:19)
[2017-03-28] VITALS (8 sets, daily range): BP systolic 130–164; BP diastolic 72–84; PULSE 74–88; TEMP 36.5–36.9; O2SAT 91–97
[2017-03-28] MEDS: ONDANSETRON INJ 2 MG/ML 2 ML VIAL IV PRN ×3 (00:13→19:47)
[2017-03-28] MEDS: METRONIDAZOLE / NSS 500 MG in PREMIXED NSS 100 ML IV SCH ×4 (00:13→23:17)
[2017-03-28] MEDS: TRAMADOL HCL 50 MG TAB PO PRN ×3 (00:13→23:24)
[2017-03-28] MEDS: INSULIN ASPART 100 UNITS/ML 3 ML PEN SC SCH ×4 (07:00→20:44)
[2017-03-28 07:21] LABS: BASO % 0.2 %; BASO ABS # 0.02 K/uL (0-0.2); COMPLETE YES; EOS % 2.7 %; IG% 0.7 %; LYMPH % 12.7 %; LYMPH ABS # 1.19 K/uL (1.2-3.4); MEAN CELL VOLUME 89.4 fL (80-100); MEAN CORPUSCULAR HEMOGLOBIN 30.2 pg (25-34); MEAN CORPUSCULAR HGB CONC 33.8 g/dl (32-36); MEAN PLATELET VOLUME 10.1 fL (7.4-10.4); MONO % 13.6 %; NEUT % 70.1 %; PLATELET COUNT 128 K/uL (130-400); RED BLOOD COUNT 3.58 M/uL (4.2-5.4); WHITE BLOOD COUNT 9.34 K/uL (4.8-10.8)
[2017-03-28 08:05] LABS: BUN/CREATININE RATIO 12.2 (10-20); CALCIUM 7.7 mg/dl (8.5-10.1); CREATININE 0.45 mg/dl (0.60-1.20); MAGNESIUM 1.7 mg/dl (1.8-2.4); POTASSIUM 3.1 mmol/L (3.5-5.1)
[2017-03-28 08:13] LABS: PHOSPHORUS 1.8 mg/dl (2.5-4.9)
[2017-03-28] MEDS: CEROVITE ADV FORMULA TAB PO SCH (08:33)
[2017-03-28] MEDS: FLUTICASONE PROPIONATE NA SPR 16 GM BTL NAE SCH (08:33)
[2017-03-28] MEDS: SENNA 8.6 MG TAB PO SCH ×2 (08:33→20:41)
[2017-03-28] MEDS: POT PHOSPHATE MONOBASIC W/ SOD TAB PO SCH ×4 (08:33→20:40)
[2017-03-28] MEDS: PANTOprazole SOD 40 MG TAB PO SCH (08:33)
[2017-03-28] MEDS: METOPROLOL SUCC 50MG EXT REL TAB PO SCH ×2 (08:33→20:42)
--- NOTE | 2017-03-28 09:01 | Orthopedic Progress Note ---
Orthopedic Progress Note Date of Service Mar 28, 2017. Subjective Post OP Day: 5 Additional Notes: Vane is postoperative day 5 multilevel lumbar decompression fusion. Today she notes complaints of generalized weakness in her lower extremities. She also notes urinary and bowel incontinence over the past couple of days. She also has episodes of being able to make it to the commode without issue. H&H is r 10.8 and 32.0 respectively. QUEENIE drain output shift was 15 mL. no other complaints. Objective calves soft nontender, N/V intact, dressing C/D/I, A&O x3, toes mobile She is alert and oriented 3. No obvious distress. Lower extremities neurovascular intact. Calf is soft and nontender bilaterally. Date Time Temp Pulse Resp B/P (MAP) Pulse Ox O2 Delivery O2 Flow Rate FiO2 03/28/17 08:42 36.9 88 18 130/72 (91) 91 Room Air 03/28/17 04:00 Room Air 03/28/17 03:40 36.6 75 16 151/72 (98) 93 Room Air 03/28/17 00:00 Room Air 03/27/17 23:15 36.7 83 16 145/79 (101) 93 Room Air 03/27/17 20:00 96 Room Air 03/27/17 19:50 36.7 78 20 128/80 (96) 94 Room Air 03/27/17 16:00 96 Room Air 2.0 03/27/17 15:47 36.9 88 22 118/72 (87) 96 Room Air 03/27/17 12:07 36.6 82 18 138/80 (99) 98 Room Air 03/27/17 12:00 Room Air Laboratory Results 24 Hours: Test 03/27/17 18:18 03/28/17 06:49 White Blood Count 8.61 K/uL 9.34 K/uL Red Blood Count 3.18 M/uL 3.58 M/uL Hemoglobin 9.9 g/dL 10.8 g/dL Hematocrit 27.7 % 32.0 % Mean Corpuscular Volume 87.1 fL 89.4 fL Mean Corpuscular Hemoglobin 31.1 pg 30.2 pg Mean Corpuscular Hemoglobin Concent 35.7 g/dl 33.8 g/dl Platelet Count 117 K/uL 128 K/uL Mean Platelet Volume 9.8 fL 10.1 fL Neutrophils (%) (Auto) 77.6 % 70.1 % Lymphocytes (%) (Auto) 10.5 % 12.7 % Monocytes (%) (Auto) 11.0 % 13.6 % Eosinophils (%) (Auto) 0.3 % 2.7 % Basophils (%) (Auto) 0.0 % 0.2 % Neutrophils # (Auto) 6.68 K/uL 6.54 K/uL Lymphocytes # (Auto) 0.90 K/uL 1.19 K/uL Monocytes # (Auto) 0.95 K/uL 1.27 K/uL Eosinophils # (Auto) 0.03 K/uL 0.25 K/uL Basophils # (Auto) 0.00 K/uL 0.02 K/uL Assessment & Plan Assessment: Status post multilevel lumbar decompression fusion Plan: We'll continue pain control. We'll continue with physical therapy. We'll DC QUEENIE drain and dressing change. Ultimately when she is stable we'll transfer her to the orthopedic floor. Plan upon discharge is to return back to the [facility].
[2017-03-28] MEDS ORDERED: POTASSIUM PHOS 3 MMOL/1 ML INFUSION IV STA (09:22)
[2017-03-28] MEDS ORDERED: MAGNESIUM OXIDE 400 MG TAB PO ONE (09:23)
[2017-03-28] MEDS ORDERED: POTASSIUM PHOSPHATE INJ 24 MMOL in SODIUM CHLORIDE 0.9% 500ML 500 ML IV ONE (10:00)
[2017-03-28] MEDS: PROMETHAZINE HCL INJ 12.5 MG in SODIUM CHLORIDE 0.9% 50ML 50 ML IV PRN ×2 (13:51→23:27)
[2017-03-28] MEDS: CEFTRIAXONE SOD INJ 1000 MG in DEXTROSE 5% 50ML IV SCH (16:23)
[2017-03-28 17:57] LABS: BASO % 0.1 %; BASO ABS # 0.01 K/uL (0-0.2); COMPLETE YES; EOS % 0.8 %; HEMATOCRIT 30.7 % (37-47); IG% 1.4 %; LYMPH ABS # 0.99 K/uL (1.2-3.4); MEAN CELL VOLUME 88.5 fL (80-100); MEAN CORPUSCULAR HEMOGLOBIN 30.5 pg (25-34); MEAN CORPUSCULAR HGB CONC 34.5 g/dl (32-36); MEAN PLATELET VOLUME 9.5 fL (7.4-10.4); MONO % 12.1 %; NEUT % 75.6 %; PLATELET COUNT 148 K/uL (130-400); RED BLOOD COUNT 3.47 M/uL (4.2-5.4); WHITE BLOOD COUNT 9.92 K/uL (4.8-10.8)
[2017-03-28 18:16] LABS: BUN/CREATININE RATIO 16.2 (10-20); CALCIUM 7.7 mg/dl (8.5-10.1); CREATININE 0.42 mg/dl (0.60-1.20); MAGNESIUM 1.5 mg/dl (1.8-2.4); POTASSIUM 3.6 mmol/L (3.5-5.1)
[2017-03-28 18:19] LABS: PHOSPHORUS 3.1 mg/dl (2.5-4.9)
[2017-03-28] MEDS ORDERED: NURSING VERBAL MED ORDER ONE (20:00)
[2017-03-28] MEDS: MAGNESIUM OXIDE 400 MG TAB PO SCH (20:40)
[2017-03-28] MEDS: MAGNESIUM SULFATE 1GM / D5W 1 GM in PREMIXED IN D5W 100 ML IV SCH ×2 (20:40→22:19)
[2017-03-28] MEDS: DOCUSATE SODIUM/SENNA 50/8.6MG TAB PO SCH (20:41)
[2017-03-28] MEDS: CETIRIZINE HCL 10 MG TAB PO SCH (20:41)
[2017-03-29] VITALS (8 sets, daily range): BP systolic 121–146; BP diastolic 75–85; PULSE 59–80; TEMP 36.3–36.8; O2SAT 93–97
[2017-03-29] MEDS: METOCLOPRAMIDE HCL INJ 5 MG/ML 2 ML VIAL IV PRN (02:49)
[2017-03-29] MEDS: INSULIN ASPART 100 UNITS/ML 3 ML PEN SC SCH ×4 (07:00→20:50)
[2017-03-29] MEDS: PANTOprazole SOD 40 MG TAB PO SCH (07:29)
[2017-03-29] MEDS: CEROVITE ADV FORMULA TAB PO SCH (07:29)
[2017-03-29] MEDS: POT PHOSPHATE MONOBASIC W/ SOD TAB PO SCH ×4 (07:29→20:11)
[2017-03-29] MEDS: METOPROLOL SUCC 50MG EXT REL TAB PO SCH ×2 (07:29→20:14)
[2017-03-29] MEDS: MAGNESIUM OXIDE 400 MG TAB PO SCH ×2 (07:30→20:11)
[2017-03-29] MEDS: SENNA 8.6 MG TAB PO SCH ×2 (07:31→20:12)
[2017-03-29] MEDS: FLUTICASONE PROPIONATE NA SPR 16 GM BTL NAE SCH (07:31)
[2017-03-29] MEDS: ONDANSETRON INJ 2 MG/ML 2 ML VIAL IV PRN (07:34)
[2017-03-29 07:42] LABS: HEMATOCRIT 33.8 % (37-47); MEAN CELL VOLUME 90.1 fL (80-100); MEAN CORPUSCULAR HEMOGLOBIN 31.2 pg (25-34); MEAN CORPUSCULAR HGB CONC 34.6 g/dl (32-36); MEAN PLATELET VOLUME 9.8 fL (7.4-10.4); PLATELET COUNT 238 K/uL (130-400); RED BLOOD COUNT 3.75 M/uL (4.2-5.4); WHITE BLOOD COUNT 15.78 K/uL (4.8-10.8)
[2017-03-29 07:44] LABS: BASO % 0.1 %; BASO ABS # 0.02 K/uL (0-0.2); COMPLETE YES; EOS % 1.4 %; LYMPH % 11.3 %; LYMPH ABS # 1.79 K/uL (1.2-3.4); MONO % 12.7 %; NEUT % 72.5 %; PLT ESTIMATE NORMAL
[2017-03-29 08:01] LABS: BUN/CREATININE RATIO 11.2 (10-20); CALCIUM 8.2 mg/dl (8.5-10.1); CREATININE 0.56 mg/dl (0.60-1.20); MAGNESIUM 1.9 mg/dl (1.8-2.4); POTASSIUM 3.2 mmol/L (3.5-5.1)
[2017-03-29 08:07] LABS: PHOSPHORUS 2.1 mg/dl (2.5-4.9)
[2017-03-29] MEDS ORDERED: POTASSIUM CHLORIDE 10 MEQ TABCR PO STA (08:39)
[2017-03-29] MEDS ORDERED: POTASSIUM PHOS 3 MMOL/1 ML INFUSION IV STA (08:39)
[2017-03-29] MEDS ORDERED: POTASSIUM PHOSPHATE INJ 24 MMOL in SODIUM CHLORIDE 0.9% 500ML 500 ML IV SCH (09:00)
--- NOTE | 2017-03-29 09:06 | Cardiology Follow-Up ---
Subjective General Date of Service: Mar 29, 2017. Chief Complaint: post op hypotension/tachycardia; history of Hypertrophic cardiomyopathy Pt evaluation today including: conversation w/ patient, physical exam, chart review, lab review, review of studies, review of inpatient medication list History of Present Illness Patient feeling ok this AM. Nausea still present but improving. Able to eat a small breakfast this AM. Denies acute chest pain or SOB. Notes continued generalized weakness. No pain. Mild dizziness with positional changes. No palpitations. Allergies Coded Allergies: BEE STING (Verified Allergy, Intermediate, BEE/WASP-NAUSEA AND DIZZINESS, 03/23/17) Penicillins (Verified Allergy, Intermediate, RASH (PER PT, WAS A LONG TIME AGO)AMOXICILLIN AND PCN, 03/23/17) Esomeprazole (Verified Allergy, Mild, NAUSEA VOMITING, 03/23/17) Pt does not remember this Antipyrine (Verified Allergy, Unknown, RASH AND BLISTERS, 03/23/17) Pt reports does not remember this Benzocaine (Verified Allergy, Unknown, UNKNOWN, 02/27/17) Hydroxychloroquine (Verified Allergy, Unknown, UNKNOWN, 03/23/17) Misoprostol (Verified Allergy, Unknown, UNKNOWN, 02/27/17) Phenylephrine (Verified Allergy, Unknown, UNKNOWN, 03/23/17) Pseudoephedrine (Verified Allergy, Unknown, UNKNOWN, 03/23/17) Serotonin Reuptake Inhibitors (Verified Allergy, Unknown, UNKNOWN, 03/23/17 ) Sulfa Antibiotics (Verified Allergy, Unknown, UNKNOWN, 03/23/17) Citalopram (Verified Adverse Reaction, Mild, GI UPSET, 03/23/17) Clarithromycin (Verified Adverse Reaction, Mild, GI UPSET, 03/23/17) Social History Smoking Status: Never Smoker Hx Tobacco Use In Past Year?: No Hx Alcohol Use - Type And Amou: No Hx Substance Use - Type And Am: No Problem List Medical Problems: (1) Blood loss, postoperative Status: Acute (2) CHF (congestive heart failure) Status: Acute (3) Constipation Status: Acute (4) Constipation Status: Acute (5) Fecal impaction in rectum Status: Acute (6) HOCM (hypertrophic obstructive cardiomyopathy) Status: Chronic (7) Hypomagnesemia Status: Acute (8) Hypovolemia Status: Acute (9) Lumbar compression fracture Status: Acute (10) Tachycardia Status: Acute (11) UTI (urinary tract infection) Status: Acute Review of Systems Respiratory: No cough, No sputum, No wheezing, No shortness of breath, No dyspnea at rest, No hemoptysis Cardiac: No chest pain, No orthopnea, No PND, No edema, No palpitations Physical Exam Vital Signs Last Vital Signs Documentation Date Time Temp Pulse Resp B/P (MAP) Pulse Ox O2 Delivery O2 Flow Rate FiO2 03/29/17 07:52 36.8 75 18 128/75 (92) 95 Room Air 03/28/17 15:38 3.0 Physical Exam Constitutional: Level of Distress: NAD, chronically ill Psychiatric: Mental Status: active & alert Orientation: to time, to place, to person Head: normocephalic Lungs: Respiratory effort: no dyspnea Auscultation: no wheezing, no rales/crackles, decreased breath sounds Cardiovascular: Heart Auscultation: RRR, II/ [place] Peripheral Pulses: Bruits: none appreciated Abdomen: Bowel Sounds: normal Inspection & Palpation: soft, non-distended Extremities: no edema Assessment and Plan Assessment and Plan IMPRESSION: 76-year-old female 1. Post op lumbar decompression/fusion 2. Post op extraperitoneal hemorrhage with associated acute blood loss anemia and hypotension 3. History of hypertrophic cardiomyopathy - hyperdynamic LV function per echo 4. Post op anemia - stable hbg 5. electrolyte abnormalities - PLAN: Stable cardiac signs/symptoms. Improved HR/BP and anemia. Continue metoprolol succinate 100 mg BID. replace potassium/magnesium. Monitor. Increase activity and diet as tolerated. Case to be discussed with Dr. Juarez. Looks better today, ambulated in room, heart rate and BP controlled Agree with plan,transfer to floor. Will sign off, call with any questions Devon Juarez MD Laboratory Results Last 24 Hours Test 03/28/17 11:06 03/28/17 16:09 03/28/17 17:45 03/28/17 20:33 Bedside Glucose 91 mg/dl 89 mg/dl 97 mg/dl White Blood Count 9.92 K/uL Red Blood Count 3.47 M/uL Hemoglobin 10.6 g/dL Hematocrit 30.7 % Mean Corpuscular Volume 88.5 fL Mean Corpuscular Hemoglobin 30.5 pg Mean Corpuscular Hemoglobin Concent 34.5 g/dl Platelet Count 148 K/uL Mean Platelet Volume 9.5 fL Neutrophils (%) (Auto) 75.6 % Lymphocytes (%) (Auto) 10.0 % Monocytes (%) (Auto) 12.1 % Eosinophils (%) (Auto) 0.8 % Basophils (%) (Auto) 0.1 % Neutrophils # (Auto) 7.50 K/uL Lymphocytes # (Auto) 0.99 K/uL Monocytes # (Auto) 1.20 K/uL Eosinophils # (Auto) 0.08 K/uL Basophils # (Auto) 0.01 K/uL RDW Standard Deviation 50.0 fL RDW Coefficient of Variation 16.0 % Immature Granulocyte % (Auto) 1.4 % Immature Granulocyte # (Auto) 0.14 K/uL Sodium Level 136 mmol/L Potassium Level 3.6 mmol/L Chloride Level 100 mmol/L Carbon Dioxide Level 27 mmol/L Anion Gap 9.0 mmol/L Blood Urea Nitrogen 7 mg/dl Creatinine 0.42 mg/dl Est Creatinine Clear Calc Drug Dose 91.5 ml/min Estimated GFR () 116.2 Estimated GFR (Non- 100.3 BUN/Creatinine Ratio 16.2 Random Glucose 109 mg/dl Calcium Level 7.7 mg/dl Ionized Calcium 1.02 mmol/l Phosphorus Level 3.1 mg/dl Magnesium Level 1.5 mg/dl Total Bilirubin 1.0 mg/dl Aspartate Amino Transf (AST/SGOT) 35 U/L Alanine Aminotransferase (ALT/SGPT) 30 U/L Alkaline Phosphatase 70 U/L Total Protein 5.1 gm/dl Albumin 2.5 gm/dl Globulin 2.6 gm/dl Albumin/Globulin Ratio 1.0 Test 03/29/17 06:44 03/29/17 07:00 Bedside Glucose 87 mg/dl White Blood Count 15.78 K/uL Red Blood Count 3.75 M/uL Hemoglobin 11.7 g/dL Hematocrit 33.8 % Mean Corpuscular Volume 90.1 fL Mean Corpuscular Hemoglobin 31.2 pg Mean Corpuscular Hemoglobin Concent 34.6 g/dl Platelet Count 238 K/uL Mean Platelet Volume 9.8 fL Neutrophils (%) (Auto) 72.5 % Lymphocytes (%) (Auto) 11.3 % Monocytes (%) (Auto) 12.7 % Eosinophils (%) (Auto) 1.4 % Basophils (%) (Auto) 0.1 % Neutrophils # (Auto) 11.43 K/uL Lymphocytes # (Auto) 1.79 K/uL Monocytes # (Auto) 2.01 K/uL Eosinophils # (Auto) 0.22 K/uL Basophils # (Auto) 0.02 K/uL RDW Standard Deviation 51.3 fL RDW Coefficient of Variation 16.2 % Immature Granulocyte % (Auto) 2.0 % Immature Granulocyte # (Auto) 0.31 K/uL Platelet Estimate NORMAL Red Blood Cell Morphology Unremarkable Sodium Level 136 mmol/L Potassium Level 3.2 mmol/L Chloride Level 96 mmol/L Carbon Dioxide Level 29 mmol/L Anion Gap 11.0 mmol/L Blood Urea Nitrogen 6 mg/dl Creatinine 0.56 mg/dl Est Creatinine Clear Calc Drug Dose 68.7 ml/min Estimated GFR () 105.7 Estimated GFR (Non- 91.2 BUN/Creatinine Ratio 11.2 Random Glucose 91 mg/dl Calcium Level 8.2 mg/dl Ionized Calcium 1.05 mmol/l Phosphorus Level 2.1 mg/dl Magnesium Level 1.9 mg/dl Total Bilirubin 1.3 mg/dl Aspartate Amino Transf (AST/SGOT) 36 U/L Alanine Aminotransferase (ALT/SGPT) 32 U/L Alkaline Phosphatase 74 U/L Total Protein 5.5 gm/dl Albumin 2.8 gm/dl Globulin 2.7 gm/dl Albumin/Globulin Ratio 1.0
--- NOTE | 2017-03-29 15:22 | Progress Note ---
Progress Note Date of Service Mar 29, 2017. Progress Note Patient's back pain is steadily improving. Leg pain improved. Vital signs are stable. On exam she is good strength testing appears comfortable. Assessment status post multilevel lumbar decompression fusion. Plan at this time continue to encourage walking and activity as tolerated. Retransferred the orthopedic floor medically cleared. Hopefully discharge to the [facility]
--- NOTE | 2017-03-29 16:45 | Progress Note ---
Post ICU Progress Note Date & Time Mar 29, 2017 at 16:42 Vital Signs Vital Signs Past 12 Hours Date Time Temp Pulse Resp B/P (MAP) Pulse Ox O2 Delivery O2 Flow Rate FiO2 03/29/17 14:24 36.7 80 18 94 3.0 03/29/17 12:25 36.7 80 18 135/76 (95) 94 Room Air 03/29/17 12:00 Room Air 03/29/17 08:00 Room Air 03/29/17 07:52 36.8 75 18 128/75 (92) 95 Room Air Notes Mental Status: alert / awake Nausea / Vomiting: adequately controlled Pain: improving with treatment Airway Patency, RR, SpO2: stable & adequate BP & HR: stable & adequate Patient is a 76-year-old female initially admitted to the ICU for acute blood loss anemia and hypovolemia. The patient had a past medical history complicated by HOCM. She recovered well with PRBCs and beta blockers. She was evaluated today and reports feeling "much better than when I first met you." The patient does complain of some residual pain in her lower back as well as legs, but reports that this is much improved. She is ambulating. She is a resident at the [facility] and reports that she will likely be on inpatient status for the next several days and then transition back to independent living with her . The patient's diet has currently progress from clears to a full diet. She admits that she has not eaten much, but does report that she feels better with food. She offers no complaints at this time. Consider outpatient follow up in 1 to 2 weeks with: Ortho Spine Repeat imaging needed: Per Primary Team and Ortho Spine Follow up cultures: None Reviewed progress notes, labs, and inpatient medication list Continue current management Additional recommendations: None. Please feel free to reconsult as needed. Critical Care Team will sign off at this point. Thank you for allowing us to take participate in the care of this patient. Consults & Procedures Consultants: Spine Surgery - Dr. Fernandes Hospitalist - Dr. Harris Cardiology - Dr. Juarez Procedures: None at this point.
[2017-03-29] MEDS: CETIRIZINE HCL 10 MG TAB PO SCH (20:11)
[2017-03-29] MEDS: DOCUSATE SODIUM/SENNA 50/8.6MG TAB PO SCH (20:13)
[2017-03-29] MEDS: OXYCODONE HCL IR 5 MG TAB (IMMEDIATE RELEASE) PO PRN (22:13)
[2017-03-30] MEDS: TRAMADOL HCL 50 MG TAB PO PRN (01:03)
[2017-03-30] MEDS: ONDANSETRON INJ 2 MG/ML 2 ML VIAL IV PRN ×3 (01:03→20:50)
[2017-03-30] MEDS: OXYCODONE HCL IR 5 MG TAB (IMMEDIATE RELEASE) PO PRN ×3 (03:58→20:51)
[2017-03-30 06:00] VITALS: BP 114/73; PULSE 97; O2SAT 92
[2017-03-30] MEDS ORDERED: NITROGLYCERIN 0.4 MG SL PER TAB CHARGE SL STA ×2 (06:06→06:48)
[2017-03-30 06:10] VITALS: O2SAT 97
[2017-03-30] MEDS ORDERED: NITROGLYCERIN 0.4 MG SL PER TAB CHARGE ONE (06:12)
[2017-03-30 06:48] LABS: BASO % 0.1 %; BASO ABS # 0.02 K/uL (0-0.2); COMPLETE YES; EOS % 1.4 %; HEMATOCRIT 31.9 % (37-47); IG% 1.5 %; LYMPH % 16.1 %; LYMPH ABS # 2.72 K/uL (1.2-3.4); MEAN CELL VOLUME 91.1 fL (80-100); MEAN CORPUSCULAR HEMOGLOBIN 31.4 pg (25-34); MEAN CORPUSCULAR HGB CONC 34.5 g/dl (32-36); MEAN PLATELET VOLUME 9.6 fL (7.4-10.4); MONO % 13.8 %; NEUT % 67.1 %; PLATELET COUNT 328 K/uL (130-400); WHITE BLOOD COUNT 16.94 K/uL (4.8-10.8)
--- NOTE | 2017-03-30 07:07 | DIAGNOSTIC IMAGING REPORT ---
CHEST ONE VIEW PORTABLE CLINICAL HISTORY: 76 years-old Female presenting with sob. TECHNIQUE: Portable upright AP view of the chest was obtained. COMPARISON: 03/24/2017. FINDINGS: Stable enlargement of the cardiac silhouette. Stable to slight interval decrease in perihilar vascular indistinctness. However, increased left basilar opacity opacity ter on the left. Possible small left pleural effusion. No pneumothorax. Scoliotic curvature of the thoracic spine. Partially visualized lumbar fusion hardware. Upper abdomen normal. IMPRESSION: 1. Cardiomegaly with stable to slight interval decrease in perihilar opacities, which could be compatible with decreasing pulmonary edema. 2. Increased left basilar opacity. Infection not excluded. Electronically signed by: Aaron Rainey M.D. 03/30/2017 7:05 AM Dictated Date/Time: 03/30/2017 7:03 AM
[2017-03-30 07:16] LABS: CREATININE 0.56 mg/dl (0.60-1.20); MAGNESIUM 1.7 mg/dl (1.8-2.4)
[2017-03-30 07:20] VITALS: BP 109/69; PULSE 98; TEMP 36.7; O2SAT 94
--- NOTE | 2017-03-30 07:46 | Progress Note ---
Internal Med Progress Note Date of Service: Mar 30, 2017. Provider Documentation: Made aware by RN of patient complaints of central chest tightness this a.m. Difficult to take a deep breath as per patient. Some relief with nitroglycerin. EKG chronic left bundle branch block Chest x-ray improving congestion troponin 0.036 AP Chest pain ? ACS Follow up troponin Resume home aspirin for CAD prevention (HH stable; Mr. Rony Krishnamurthy, [facility] [place]-call agreeable for now.) Will relay to a.m. provider. Vital Signs: Date Time Temp Pulse Resp B/P (MAP) Pulse Ox O2 Delivery O2 Flow Rate FiO2 03/30/17 07:20 36.7 98 16 109/69 (82) 94 Room Air 03/30/17 06:10 97 Nasal Cannula 2.0 03/30/17 06:00 97 16 114/73 (87) 92 Room Air 03/30/17 00:50 Room Air 03/29/17 23:03 36.3 79 16 134/75 (94) 95 Room Air 03/29/17 16:30 94 Room Air 03/29/17 15:00 36.8 59 18 121/79 (93) 96 Room Air 03/29/17 14:24 36.7 80 18 94 3.0 03/29/17 12:25 36.7 80 18 135/76 (95) 94 Room Air 03/29/17 12:00 Room Air Lab Results: Results Past 24 Hours Test 03/29/17 11:14 03/29/17 17:07 03/29/17 20:36 03/30/17 06:37 Range/Units Bedside Glucose 117 104 141 70-90 mg/dl White Blood Count 16.94 4.8-10.8 K/uL Red Blood Count 3.50 4.2-5.4 M/uL Hemoglobin 11.0 12.0-16.0 g/dL Hematocrit 31.9 37-47 % Mean Corpuscular Volume 91.1 80-100 fL Mean Corpuscular Hemoglobin 31.4 25-34 pg Mean Corpuscular Hemoglobin Concent 34.5 32-36 g/dl Platelet Count 328 130-400 K/uL Mean Platelet Volume 9.6 7.4-10.4 fL Neutrophils (%) (Auto) 67.1 % Lymphocytes (%) (Auto) 16.1 % Monocytes (%) (Auto) 13.8 % Eosinophils (%) (Auto) 1.4 % Basophils (%) (Auto) 0.1 % Neutrophils # (Auto) 11.37 1.4-6.5 K/uL Lymphocytes # (Auto) 2.72 1.2-3.4 K/uL Monocytes # (Auto) 2.33 0.11-0.59 K/uL Eosinophils # (Auto) 0.24 0-0.5 K/uL Basophils # (Auto) 0.02 0-0.2 K/uL RDW Standard Deviation 53.3 36.4-46.3 fL RDW Coefficient of Variation 16.8 11.5-14.5 % Immature Granulocyte % (Auto) 1.5 % Immature Granulocyte # (Auto) 0.26 0.00-0.02 K/uL Activated Partial Thromboplast Time 25.0 21.0-31.0 SECONDS Partial Thromboplastin Ratio 1.0 Sodium Level 133 136-145 mmol/L Potassium Level 3.0 3.5-5.1 mmol/L Chloride Level 97 98-107 mmol/L Carbon Dioxide Level 30 21-32 mmol/L Anion Gap 6.0 3-11 mmol/L Blood Urea Nitrogen 8 7-18 mg/dl Creatinine 0.56 0.60-1.20 mg/dl Est Creatinine Clear Calc Drug Dose 68.7 ml/min Estimated GFR () 105.7 Estimated GFR (Non- 91.2 BUN/Creatinine Ratio 14.0 10-20 Random Glucose 115 70-99 mg/dl Calcium Level 8.0 8.5-10.1 mg/dl Magnesium Level 1.7 1.8-2.4 mg/dl Troponin I 0.036 0-0.045 ng/ml
[2017-03-30] MEDS ORDERED: POTASSIUM CHLORIDE 10 MEQ TABCR PO STA (07:49)
[2017-03-30] MEDS ORDERED: MAGNESIUM SULFATE 1GM / D5W 1 GM in PREMIXED IN D5W 100 ML IV STA (07:49)
[2017-03-30] MEDS ORDERED: ASPIRIN 81 MG ECTAB PO STA (08:09)
--- NOTE | 2017-03-30 08:59 | Progress Note ---
Progress Note Date of Service Mar 30, 2017. Progress Note Patient resting comfortably. Vital signs stable. Exam she is neurologically intact and progressing properly. Assessment status post multilevel lumbar depression fusion replant this time we are in obtaining discharged to rehabilitation facility. She would require daily physical therapy as she is markedly weak and deconditioned.
[2017-03-30] MEDS: FLUTICASONE PROPIONATE NA SPR 16 GM BTL NAE SCH (09:00)
[2017-03-30] MEDS: SENNA 8.6 MG TAB PO SCH ×2 (09:00→20:49)
[2017-03-30] MEDS: METOPROLOL SUCC 50MG EXT REL TAB PO SCH ×2 (09:20→20:49)
[2017-03-30] MEDS: CEROVITE ADV FORMULA TAB PO SCH (09:21)
[2017-03-30] MEDS: PANTOprazole SOD 40 MG TAB PO SCH (09:21)
[2017-03-30] MEDS: POT PHOSPHATE MONOBASIC W/ SOD TAB PO SCH ×4 (09:22→20:50)
[2017-03-30] MEDS: MAGNESIUM OXIDE 400 MG TAB PO SCH ×2 (09:22→20:50)
[2017-03-30] MEDS: INSULIN ASPART 100 UNITS/ML 3 ML PEN SC SCH ×2 (09:44→13:27)
[2017-03-30 14:57] VITALS: BP 105/67; PULSE 94; TEMP 36.6; O2SAT 90
[2017-03-30] MEDS ORDERED: NURSING VERBAL MED ORDER ONE (17:30)
[2017-03-30] MEDS: BOOST VANILLA PO SCH ×2 (17:37)
--- NOTE | 2017-03-30 20:23 | Progress Note ---
Medicine Progress Note Date & Time of Visit: Mar 30, 2017 at 20:10. Subjective Pt was seen and examined Lying in bed comfortable with no distress Pt said that she is feeling a little better today denies any chest pain, palpitation, dizziness and SOB Objective Last 8 Hrs Date Time Temp Pulse Resp B/P (MAP) Pulse Ox O2 Delivery O2 Flow Rate FiO2 03/30/17 15:45 Room Air 03/30/17 14:57 36.6 94 17 105/67 (80) 90 Room Air Physical Exam: General- No acute distress Head- atraumatic Eyes- PERRL, EOMI ENT- oropharynx clear Neck- supple, no JVD Lungs- clear to auscultation Heart- regular rhythm; +murmur Abdomen- normal bowel sounds, soft Extremities- no pretibial edema Neuro- alert, oriented x 3; PERRL, EOMI; no facial palsy Skin- warm & dry Laboratory Results: Last 24 Hours Test 03/29/17 20:36 03/30/17 06:37 03/30/17 08:06 03/30/17 11:45 Bedside Glucose 141 mg/dl 120 mg/dl White Blood Count 16.94 K/uL Red Blood Count 3.50 M/uL Hemoglobin 11.0 g/dL Hematocrit 31.9 % Mean Corpuscular Volume 91.1 fL Mean Corpuscular Hemoglobin 31.4 pg Mean Corpuscular Hemoglobin Concent 34.5 g/dl Platelet Count 328 K/uL Mean Platelet Volume 9.6 fL Neutrophils (%) (Auto) 67.1 % Lymphocytes (%) (Auto) 16.1 % Monocytes (%) (Auto) 13.8 % Eosinophils (%) (Auto) 1.4 % Basophils (%) (Auto) 0.1 % Neutrophils # (Auto) 11.37 K/uL Lymphocytes # (Auto) 2.72 K/uL Monocytes # (Auto) 2.33 K/uL Eosinophils # (Auto) 0.24 K/uL Basophils # (Auto) 0.02 K/uL RDW Standard Deviation 53.3 fL RDW Coefficient of Variation 16.8 % Immature Granulocyte % (Auto) 1.5 % Immature Granulocyte # (Auto) 0.26 K/uL Activated Partial Thromboplast Time 25.0 SECONDS Partial Thromboplastin Ratio 1.0 Sodium Level 133 mmol/L Potassium Level 3.0 mmol/L Chloride Level 97 mmol/L Carbon Dioxide Level 30 mmol/L Anion Gap 6.0 mmol/L Blood Urea Nitrogen 8 mg/dl Creatinine 0.56 mg/dl Est Creatinine Clear Calc Drug Dose 68.7 ml/min Estimated GFR () 105.7 Estimated GFR (Non- 91.2 BUN/Creatinine Ratio 14.0 Random Glucose 115 mg/dl Calcium Level 8.0 mg/dl Magnesium Level 1.7 mg/dl Total Bilirubin 1.3 mg/dl Direct Bilirubin 0.4 mg/dl Aspartate Amino Transf (AST/SGOT) 29 U/L Alanine Aminotransferase (ALT/SGPT) 27 U/L Alkaline Phosphatase 66 U/L Troponin I 0.036 ng/ml 0.034 ng/ml Total Protein 5.0 gm/dl Albumin 2.6 gm/dl Lipase 446 U/L Test 03/30/17 12:15 03/30/17 16:52 Bedside Glucose 136 mg/dl 178 mg/dl Assessment & Plan Hypotension: Post procedural Hypovolemic Shock Causes could be Hypovolemia,Blood loss,sepsis and or Cardiac Could be the cause of Increased Lactate and Procalcitonin Started on Broad spectrum antibiotics Did not require any Pressors yet Volume replacement with NS and Blood as needed Monitored in ICU,transferred to Tele 03/26/17 Antibiotic will be deescalated as per [employer] recommendation Blood cultures -NEGATIVE Has been on Ceftriaxone and Flagyl to cover possible Diverticulitis Clinically better Still has some nausea Electrolytes Imbalance Getting supplements Continue Monitoring Persistent Tachycardia/HOCM-Improved Could be secondary as mentioned earlier Can be primary due to HOCM Small dose of BB Serial Martina to R/O any ACS ECHO::The left ventricle is hyperdynamic. * Ejection Fraction = >70 %. * The echo findings are consistent with hypertrophic cardiomyopathy. 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 * The septal thickness is 1.7cm. * The right ventricle is hyperdynamic. * There is systolic anterior motion of the mitral valve. * There is moderate mitral regurgitation. Appreciate Cardiology input Received BB and rate is better Acute blood loss anemia complicated by Retroperitoneal Bleed Her hemoglobin dropped to 6.5 from 14.7 prior to surgery. She has had about 1800 mL of blood loss during the procedure, she got 2 units of blood transfusion. Getting 2 more Units this morning-in total [address] of the Abdomen to evaluate LLQ pain -retroperitoneal bleed Hb >9 on 03/27/17 Acute Renal Failure Mostly due to blood loss received IVF Resolved Rheumatoid arthritis. on prednisone 5 mg daily continue methotrexate will be continued as an outpatient. Hyperlipidemia. Continue with statin. Gastrointestinal prophylaxis, Protonix. Deep venous thrombosis prophylaxis as per ortho. Disposition As per ortho Consultants: Back Pain S/P lumbar decompression and fusion performed by Dr. Fernandes Continue PT/OT Pain management Stable Hypotension: Post procedural Hypovolemic Shock Causes could be Hypovolemia,Blood loss,sepsis and or Cardiac Volume replacement with NS and Blood as needed Monitored in ICU,transferred to Tele 03/26/17 Blood cultures -NEGATIVE Has been on Ceftriaxone and Flagyl to cover possible Diverticulitis Clinically better Resolved Electrolytes Imbalance Replaced Continue Monitor electrolytes Persistent Tachycardia/HOCM Could be secondary as mentioned earlier Can be primary due to HOCM Small dose of BB Serial Martina to R/O any ACS ECHO::The left ventricle is hyperdynamic. * Ejection Fraction = >70 %. * The echo findings are consistent with hypertrophic cardiomyopathy. 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 * The septal thickness is 1.7cm. * The right ventricle is hyperdynamic. * There is systolic anterior motion of the mitral valve. * There is moderate mitral regurgitation. Appreciate Cardiology input Received BB and rate is better Stable Acute blood loss anemia complicated by Retroperitoneal Bleeding CT abd/pelvis showed interval development of left extraperitoneal hemorrhage most likely a postsurgical complication status post lumbosacral spinal fusion Loss about 1800 ml of blood during the surgery Received 4 units prbc during the hospital course Hbg 11 today continue monitor h/h Acute Renal Failure Creatinine went up due volume loss s/o surgery Improved with Fluid replacement Rheumatoid arthritis. She has been on prednisone 5 mg daily, continue with that; and methotrexate will be continued as an outpatient. Got stress dose of Steroid Hyperlipidemia. Continue with statin. Gastrointestinal prophylaxis, Protonix. Deep venous thrombosis prophylaxis as per ortho. Current Inpatient Medications: Current Inpatient Medications Medications (Trade) Dose Ordered Sig/Taylor Route Start Time Stop Time Status Last Admin Dose Admin Promethazine HCl 12.5 mg/Sodium Chloride 50.5 ml @ 202 mls/hr Q6H PRN IV 03/23/17 13:15 04/22/17 13:14 03/28/17 23:27 202 MLS/HR Ondansetron HCl (Zofran Inj) 4 mg Q6H PRN IV 03/23/17 13:15 04/22/17 13:14 03/30/17 13:49 4 MG Metoclopramide HCl (Reglan Inj) 10 mg Q6H PRN IV 03/23/17 13:15 04/22/17 13:14 03/29/17 02:49 10 MG Lorazepam (Ativan Tab) 0.5 mg Q8H PRN PO 03/23/17 13:15 04/22/17 13:14 Lorazepam 0.5 mg/ Syringe 0.25 ml @ 1 mls/min Q8H PRN IV 03/23/17 13:15 04/22/17 13:14 Bisacodyl (Dulcolax Supp) 10 mg DAILY PRN MO 03/23/17 13:15 04/22/17 13:14 Oxycodone HCl (Roxicodone Immediate Rel Tab) 5-10mg prn moderate to sev... Q4H PRN PO 03/24/17 06:00 04/07/17 05:59 03/30/17 13:49 10 MG Acetaminophen (Tylenol Tab) 1,000 mg Q8H PRN PO 03/23/17 13:15 04/22/17 13:14 Senna/Docusate Sodium (Senokot S Tab) 2 tab HS PO 03/23/17 21:00 04/22/17 20:59 03/28/17 20:41 2 TAB Sodium Biphosphate/ Sodium Phosphate (Fleet Enema) 132 ml ONE PRN MO 03/23/17 13:15 04/22/17 13:14 Al Hydroxide/Mg Hydroxide (Maalox Susp) 30 ml Q6H PRN PO 03/23/17 13:15 04/22/17 13:14 03/24/17 06:39 30 ML Famotidine (Pepcid Tab) 20 mg Q12 PRN PO 03/23/17 13:15 04/22/17 13:14 03/27/17 07:42 20 MG Cetirizine HCl (zyrTEC TAB) 10 mg QPM PO 03/23/17 21:00 04/22/17 20:59 03/29/17 20:11 10 MG Fluticasone Propionate (Flonase Nasal Mousie) 2 sprays DAILY SAKINA 03/24/17 09:00 04/23/17 08:59 03/29/17 07:31 2 SPRAYS Pantoprazole Sodium (Protonix Tab) 40 mg QAM PO 03/24/17 09:00 04/23/17 08:59 03/30/17 09:21 40 MG Senna (Senokot Tab) 8.6 mg BID PO 03/23/17 21:00 04/22/17 20:59 03/29/17 20:12 8.6 MG Tramadol HCl (Ultram Tab) 50 mg Q6H PRN PO 03/24/17 06:00 04/23/17 05:59 03/30/17 01:03 50 MG Hydromorphone HCl (Dilaudid Inj) 0.5 mg Q3H PRN IV 03/23/17 22:45 04/06/17 22:44 Multivitamins/ Minerals (Multivitamin W/ Minerals Tab) 1 tab DAILY PO 03/24/17 09:00 04/23/17 08:59 03/30/17 09:21 1 TAB Glucose (Glucose 40% Gel) 15-30 GRAMS 15 GRAMS... UD PRN PO 03/24/17 03:00 04/23/17 02:59 Glucose (Glucose Chew Tab) 4-8 Tablets 4 Tabl... UD PRN PO 03/24/17 03:00 04/23/17 02:59 Dextrose (Dextrose 50% 50ML Syringe) 25-50ML OF 50% DW IV FOR... UD PRN IV 03/24/17 03:00 04/23/17 02:59 Glucagon (Glucagon Inj) 1 mg UD PRN SQ 03/24/17 03:00 04/23/17 02:59 Prednisone (PredniSONE TAB) 5 mg QAM PO 03/25/17 09:00 04/23/17 08:59 03/30/17 09:21 5 MG Potassium/ Phosphorus/Sodium (Phospha 250 Neutral 155-852-130 Mg) 1 tab QID PO 03/26/17 09:00 04/25/17 08:59 03/30/17 17:34 1 TAB Metoprolol Succinate (Toprol Xl Tab) 100 mg BID PO 03/26/17 21:00 04/25/17 20:59 03/30/17 09:20 100 MG Magnesium Oxide (Mag-Ox Tab) 400 mg BID PO 03/28/17 21:00 04/27/17 20:59 03/30/17 09:22 400 MG Aspirin (Ecotrin Tab) 81 mg QAM PO 03/31/17 09:00 04/30/17 08:59 Enteral Nutritional Formula (Boost) 1 can BIDM PO 03/30/17 17:45 04/29/17 17:44 03/30/17 17:37 1 CAN
[2017-03-30 20:46] VITALS: BP 102/67; PULSE 88
[2017-03-30] MEDS: DOCUSATE SODIUM/SENNA 50/8.6MG TAB PO SCH (20:49)
[2017-03-30] MEDS: CETIRIZINE HCL 10 MG TAB PO SCH (20:50)
[2017-03-30 23:52] VITALS: BP 126/73; PULSE 83; TEMP 36.8; O2SAT 96
[2017-03-31] MEDS: ONDANSETRON INJ 2 MG/ML 2 ML VIAL IV PRN ×2 (03:34→09:58)
[2017-03-31] MEDS: OXYCODONE HCL IR 5 MG TAB (IMMEDIATE RELEASE) PO PRN ×3 (03:34→14:41)
[2017-03-31 05:40] VITALS: O2SAT 96
[2017-03-31 07:10] VITALS: BP 128/79; PULSE 89; TEMP 36.7; O2SAT 92
[2017-03-31] MEDS ORDERED: RXC5 PO (07:37)
--- NOTE | 2017-03-31 07:38 | Discharge Instructions ---
Discharge Instructions Date of Service Mar 31, 2017. Admission Reason for Admission: Lumbar Spinal Stenosis Discharge Discharge Diagnosis / Problem: lumbar spinal stenosis Discharge Goals Goal(s): Improve function Activity Recommendations Activity Limitations: per Instructions/Follow-up section Patient to wear LSO brace when out of bed and ambulatory. Patient is not to wear brace when in bed or chair. . Instructions / Follow-Up Instructions / Follow-Up ACTIVITY RECOMMENDATIONS: SELF CARE INSTRUCTIONS AFTER THORACIC/LUMBAR FUSIONS 1. You may walk to your tolerance. It is good exercise for your legs and back. Expect some back and intermittent leg aches and pains. 2. You may perform "counter-top" level activities (make a sandwich, mayela with a project, etc.). 3. No bending or lifting of more than 10 pounds or back twisting of any nature (roll like a log when turning in bed). 4. You may ride in a car for 20-30 minutes at a time. No driving until after your first visit with your doctor. 5. Frequent changes of position and restricting sitting to 30 minutes at a time will help limit the amount of back spasms and stiffness you may experience. 6. You may discontinue the use of ambulatory aids (cane, crutches, etc.) once your strength and confidence allow. 7. You may public speaking professor the shower and let water strike your incision when you arrive home at least once daily. Do not take a tub bath, sit in a hot tub or go into a swimming pool until after your first recheck in the office. SPECIAL CARE INSTRUCTIONS: VERY IMPORTANT TO READ AND REVIEW A. Your surgical incision has been closed with a cosmetic suture under the skin that will dissolve in about 6 weeks. In 14 days, you can use a pair of clean scissors and cut the suture that is left outside of the skin at the ends of your incision. 1. The small skin tapes can be removed 7 days after surgery if they have not fallen off by that point. 2. You may keep the wound open to air as much as possible to promote healing after post-op day number 5 unless told otherwise by your doctor. 3. If you think the wound looks like it is becoming infected (redness or worsening drainage) and/or you are experiencing fever, chill or worsening back pain and muscle spasms, contact the office so that we may evaluate you as soon as possible. B. Complications are uncommon, but please contact us if you have any signs or symptoms of: 1. wound infection (fever higher than 102.5 degrees F, redness, separation of wound, drainage, or increasing pain from the incision) 2. blood clots in legs (pain, swelling, redness and warmth in legs) 3. urinary tract infection (fever higher than 102.5 degrees F, burning upon urination or increased frequency of urination) 4. nerve problems (inability to walk on your toes or heels, numbness, loss of bowel or bladder control) 5. any other symptoms that concern you C. Please call the office at if you have any concerns or questions about your operation or recovery. D. No smoking! Smoking drastically decreases the chance of a solid fusion. E. Do not take any anti-inflammatory medications (Indocin, Advil, Motrin, Aspirin, Naprosyn, etc.) as these may inhibit the chance of a solid fusion. Tylenol is okay to take for pain. MANAGING PAIN AFTER SPINAL SURGERY 1. Narcotic medication is intended for short-term use and will be provided for surgical pain. Surgical pain usually lasts for a period of 4-6 weeks. Narcotic medication includes Percocet, Vicodin, Darvocet, Tylenol #3 or Lortab. 2. Longer-term pain is more appropriately treated with non-narcotic medication such as Tylenol ES. 3. Muscle spasm is not appropriately treated with narcotics. Muscle relaxers such as Soma, Flexeril or Skelaxin can be used along with Tylenol ES. 4. Remember that we all live with some "aches and pains". This is not unusual or uncommon after an injury or as we get older. a. Back pain is expected and may include muscle spasms for 4 to 6 weeks after surgery. The pain should gradually improve. If the pain worsens for no apparent reason, please contact the office. b. Intermittent leg pain may also be experienced and should not be concerned about unless it worsens for no apparent reason. If so, please contact the office. 5. We will provide appropriate medication within the normal guidelines of their prescribed use. We will also be very cautious and aware of potential abuse and extended duration of patients' medication needs. a. Pain medications are for your comfort and to assist with sleep and rest so that the tissue can heal. They are not provided in order to return to normal activity and should not be used through the day. To do so or worsening pain at night can result from ongoing tissue damage and development of tolerance to the prescribed medicine. 6. Please allow 2-3 days to process refills. Prescriptions will not be mailed but must be picked up at the office. FOLLOW UP VISIT: Keep your scheduled follow-up appointment. Any questions, please call the office at . Current Hospital Diet Patient's current hospital diet: AHA Diet (Heart Healthy) Discharge Diet Recommended Diet: Regular Diet Procedures Procedures Performed: #1 lumbar decompression medial facetectomies foraminotomies L3 4 L4 5 L5-S1. #2 posterior spinal fusion L2 3 L3 4 L4 5 L5-S1. #3 bilateral SI joint fusions. #4 posterior segmental instrumentation L2 to S1 with bilateral iliac bolts. #5 interbody fusion L5-S1. #6 this of peek cage 10 x 22 mm L5-S1. #7 placement locally harvested morcellized autograft and posterior gutters. #8 placement of osteoamp bone graft in the interbody space posterior lateral gutters and SI joints. Pending Studies Studies pending at discharge: no Laboratory Results Hemoglobin A1c Test 03/24/17 03:40 Range/Units Estimated Average Glucose 105 mg/dl Hemoglobin A1c 5.3 4.5-5.6 % Medical Emergencies . Who to Call and When: Medical Emergencies: If at any time you feel your situation is an emergency, please call 911 immediately. . Non-Emergent Contact Non-Emergency issues call your: Primary Care Provider . "Provider Documentation" section prepared by Alexy Fernandes. . VTE Core Measure Inpt VTE Proph given/why not?: Carie Leon, SCD's
[2017-03-31 08:26] LABS: HEMATOCRIT 30.7 % (37-47); MEAN CELL VOLUME 90.8 fL (80-100); MEAN CORPUSCULAR HEMOGLOBIN 30.5 pg (25-34); MEAN CORPUSCULAR HGB CONC 33.6 g/dl (32-36); MEAN PLATELET VOLUME 9.7 fL (7.4-10.4); PLATELET COUNT 239 K/uL (130-400); RED BLOOD COUNT 3.38 M/uL (4.2-5.4); WHITE BLOOD COUNT 8.95 K/uL (4.8-10.8)
[2017-03-31] MEDS ORDERED: ASPIRIN 81 MG ECTAB PO SCH (09:00)
[2017-03-31 09:01] LABS: BUN/CREATININE RATIO 15.7 (10-20); CALCIUM 8.6 mg/dl (8.5-10.1); CREATININE 0.44 mg/dl (0.60-1.20); MAGNESIUM 1.9 mg/dl (1.8-2.4); POTASSIUM 3.5 mmol/L (3.5-5.1)
[2017-03-31] MEDS: BOOST VANILLA PO SCH ×2 (09:57)
[2017-03-31] MEDS: FLUTICASONE PROPIONATE NA SPR 16 GM BTL NAE SCH (09:58)
[2017-03-31] MEDS: MAGNESIUM OXIDE 400 MG TAB PO SCH (09:59)
[2017-03-31] MEDS: CEROVITE ADV FORMULA TAB PO SCH (09:59)
[2017-03-31] MEDS: POT PHOSPHATE MONOBASIC W/ SOD TAB PO SCH ×2 (10:00→13:18)
[2017-03-31] MEDS: SENNA 8.6 MG TAB PO SCH (10:00)
[2017-03-31] MEDS: PANTOprazole SOD 40 MG TAB PO SCH (10:00)
[2017-03-31] MEDS: METOPROLOL SUCC 50MG EXT REL TAB PO SCH (10:05)
[2017-03-31 13:49] VITALS: BP 128/79; PULSE 89; TEMP 36.7; O2SAT 92
--- NOTE | 2017-03-31 15:21 | Discharge Summary ---
Orthopedic Discharge Summary Admission Date/Reason Mar 23, 2017 at 07:55 Lumbar Spinal Stenosis. Discharge Date/Disposition Mar 31, 2017 Rehab Diagnosis Principal Diagnosis: Lumbar spinal stenosis Admission Physical Exam As per Admitting History & Physical. Hospital Course Patient underwent multilevel lumbar decompression fusion tolerated this well and did spend first few nights in the ICU secondary to hypotensive episodes. She did stabilize with a few days was eventually transferred to the stepdown unit all 20 orthopedic floor. She progressed nicely with nicely with physical therapy but obviously required additional therapy for long-term independence. Substernally she was discharged to rehabilitation. Discharge orders and instructions found the chart for further review. Discharge Instructions Please refer to the electronic Patient Visit Report (Discharge Instructions) for additional information.
== END 2017-03-31 14:54 | DRG 459 ==
LOC: C.ACU 07:34 → C.3E 07:55 → ENRESERV 14:26 → C.MSICU 03-24 05:45 → ENRESERV 03-26 13:15 → C.2T 03-26 14:05 → C.MSN 03-29 12:28 → ENRESERV 03-29 14:02
PROVIDERS: ADMIT Orthopaedic Surgery Orthopaedic Surgery of the Spine; ATTEND Orthopaedic Surgery Orthopaedic Surgery of the Spine
PROC: 0SG70KZ Fusion of Right Sacroiliac Joint with Nonautologous Tissue Substitute, Open Approach (ICD-10-PCS; principal; 2017-03-23 10:20)
PROC: 0SG1071 Fusion of 2 or more Lumbar Vertebral Joints with Autologous Tissue Substitute, Posterior Approach, Posterior Column, Open Approach (ICD-10-PCS; principal; 2017-03-23 10:20)
PROC: 0SG804Z Fusion of Left Sacroiliac Joint with Internal Fixation Device, Open Approach (ICD-10-PCS; principal; 2017-03-23 10:20)
PROC: 0SG704Z Fusion of Right Sacroiliac Joint with Internal Fixation Device, Open Approach (ICD-10-PCS; principal; 2017-03-23 10:20)
PROC: 0ST20ZZ Resection of Lumbar Vertebral Disc, Open Approach (ICD-10-PCS; principal; 2017-03-23 10:20)
PROC: 0SG30AJ Fusion of Lumbosacral Joint with Interbody Fusion Device, Posterior Approach, Anterior Column, Open Approach (ICD-10-PCS; principal; 2017-03-23 10:20)
PROC: 0SG807Z Fusion of Left Sacroiliac Joint with Autologous Tissue Substitute, Open Approach (ICD-10-PCS; principal; 2017-03-23 10:20)
PROC: 0SG707Z Fusion of Right Sacroiliac Joint with Autologous Tissue Substitute, Open Approach (ICD-10-PCS; principal; 2017-03-23 10:20)
PROC: 0SG80KZ Fusion of Left Sacroiliac Joint with Nonautologous Tissue Substitute, Open Approach (ICD-10-PCS; principal; 2017-03-23 10:20)
PROC: 0SG3071 Fusion of Lumbosacral Joint with Autologous Tissue Substitute, Posterior Approach, Posterior Column, Open Approach (ICD-10-PCS; principal; 2017-03-23 10:20)
DX: M48.06 Spinal stenosis, lumbar region (principal); T81.19XA Other postprocedural shock, initial encounter; D62 Acute posthemorrhagic anemia; N17.9 Acute kidney failure, unspecified; M96.830 Postprocedural hemorrhage of a musculoskeletal structure following a musculoskeletal system procedure; I24.8 Other forms of acute ischemic heart disease; E27.3 Drug-induced adrenocortical insufficiency; I42.1 Obstructive hypertrophic cardiomyopathy; M41.9 Scoliosis, unspecified; Y83.4 Other reconstructive surgery as the cause of abnormal reaction of the patient, or of later complication, without mention of misadventure at the time of the procedure; Y92.239 Unspecified place in hospital as the place of occurrence of the external cause; T38.0X5A Adverse effect of glucocorticoids and synthetic analogues, initial encounter; R10.9 Unspecified abdominal pain; R00.0 Tachycardia, unspecified; R11.0 Nausea; D69.6 Thrombocytopenia, unspecified; R53.1 Weakness; R32 Unspecified urinary incontinence; R15.9 Full incontinence of feces; E87.6 Hypokalemia; E83.42 Hypomagnesemia; R07.9 Chest pain, unspecified; R53.81 Other malaise; M54.16 Radiculopathy, lumbar region; M43.16 Spondylolisthesis, lumbar region; I44.7 Left bundle-branch block, unspecified; I34.1 Nonrheumatic mitral (valve) prolapse; I34.0 Nonrheumatic mitral (valve) insufficiency; J44.9 Chronic obstructive pulmonary disease, unspecified; M06.9 Rheumatoid arthritis, unspecified; K21.9 Gastro-esophageal reflux disease without esophagitis; G62.9 Polyneuropathy, unspecified; K58.9 Irritable bowel syndrome, unspecified; E78.5 Hyperlipidemia, unspecified; M81.0 Age-related osteoporosis without current pathological fracture; M19.90 Unspecified osteoarthritis, unspecified site; F42.9 Obsessive-compulsive disorder, unspecified; F32.9 Major depressive disorder, single episode, unspecified; F41.9 Anxiety disorder, unspecified; Z79.82 Long term (current) use of aspirin; Z79.891 Long term (current) use of opiate analgesic; Z79.899 Other long term (current) drug therapy; Z79.52 Long term (current) use of systemic steroids

== ENCOUNTER → 2017-06-15 | Outpatient (CLI) | payer OTHER, MEDICARE ==
[~2017-06-15] MED LIST changes: +ATOR10TA82 PO; -ATOR10TA88 PO; -CLINDAMYCIN PHOS 150 MG/ML 2 ML VIAL IV SCH; +CPRDOTS OT; -HYDR-5688 PO; -LACTATED RINGER'S 1000ML 1,000 ML IV SCH; -METH2.5T PO; +RXC5 PO
[2017-06-15 12:27] LABS: BASO % 0.1 %; BASO ABS # 0.01 K/uL (0-0.2); COMPLETE YES; EOS % 0.8 %; IG% 0.1 %; LYMPH % 13.2 %; LYMPH ABS # 1.04 K/uL (1.2-3.4); MEAN CORPUSCULAR HEMOGLOBIN 30.6 pg (25-34); MEAN CORPUSCULAR HGB CONC 32.3 g/dl (32-36); MEAN PLATELET VOLUME 10.5 fL (7.4-10.4); MONO % 5.8 %; PLATELET COUNT 158 K/uL (130-400); RED BLOOD COUNT 4.21 M/uL (4.2-5.4); WHITE BLOOD COUNT 7.89 K/uL (4.8-10.8)
[2017-06-15 12:51] LABS: CREATININE 0.62 mg/dl (0.60-1.20)
[2017-06-15 12:52] LABS: ALT/SGPT 21 U/L (12-78); AST/SGOT 20 U/L (15-37); CALCIUM 9.6 mg/dl (8.5-10.1)
[2017-06-15 12:54] LABS: ALKALINE PHOSPHATASE 81 U/L (45-117)
== END | disposition home or self-care (01) ==
LOC: C.LAB1850 11:01
PROVIDERS: ATTEND Internal Medicine Rheumatology
DX: M06.9 Rheumatoid arthritis, unspecified (principal); M81.0 Age-related osteoporosis without current pathological fracture; Z79.899 Other long term (current) drug therapy; E55.9 Vitamin D deficiency, unspecified

== ENCOUNTER 2018-03-25 15:47 | Emergency (ER) | payer OTHER, MEDICARE ==
[~2018-03-25] VITALS: Ht 158.8 cm; Wt 52.2 kg
[~2018-03-25 15:47] MED LIST changes: +DNSIS60 INJ; +DOCU100C31 PO; +FOLI400T41 PO; +MELA1TAB4 PO; -MELA3TAB12 PO; -METO50TA7 PO; +METO50TA8 PO; +MTH25 PO; -OMEG120013 PO; +PANT1TAB3 PO; -PANT1TAB48 PO; -RXC5 PO; -TRAM-10 PO
[2018-03-25 16:08] VITALS: TEMP 36.6; Ht 158.8 cm; Wt 52.2 kg
--- NOTE | 2018-03-25 17:35 | EMERGENCY ROOM VISIT NOTE ---
History Report prepared by Lexibadonis: Shi Lara Under the Supervision of: Dr. Rebekah Malloy D.O. First contact with patient: 17:23 Chief Complaint: CONSTIPATION Stated Complaint: CONSTIPATION, NAUSEA, RECENT CATARACT SURGERY Nursing Triage Summary: Patient c/o of constipation and nausea x 4 days. History of Present Illness The patient is a 77 year old female who presents to the Emergency Room with complaints of persistent constipation for the past 4 days. She has tried Milk of Magnesia with no relief. She has not tried an enema yet. She states "I've tried to push it out, but it breaks up". She has been nauseous but has not vomited. She notes she recently underwent cataract surgery on both eyes. The patient notes she has not been staying hydrated or eating normally with her recent eye surgeries. She states she feels chilled but is unsure if she's been febrile. She complains of abdominal tenderness that is worse with palpation. 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 A total of 10 systems reviewed and were otherwise negative. Past Medical & Surgical Medical Problems: (1) Carpal Tunnel Syndrome (2) Diverticulitis (3) HOCM (hypertrophic obstructive cardiomyopathy) (4) Hypertension Nos (5) IBS (irritable bowel syndrome) (6) Irritable Bowel Syndrome (7) Lumbar stenosis with neurogenic claudication (8) Mitral valve prolapse (9) Osteoporosis Nos Surgical Problems: (1) History of appendectomy Family History Diabetes mellitus Heart disease Hypertension Social History Smoking Status: Never Smoker Alcohol Use: none Drug Use: none Marital Status: Housing Status: lives with significant other Occupation Status: retired Current/Historical Medications Scheduled Aspirin (Aspirin), 81 MG PO DAILY Atorvastatin (Lipitor), 10 MG PO QPM Calcium Carbonate-Vitamin D (Calcium/Vitamin D), 1 CAP PO BID Cetirizine (Zyrtec), 10 MG PO QPM Cholecalciferol (Vitamin D 1000 Unit), 1,000 INTER.UNIT PO QAM Denosumab (Prolia), 60 MG INJ Q6MO Docusate Sodium (Docusate Sodium), 100 MG PO UD Fluticasone Propionate (Nasal) (Flonase Allergy Relief), 2 SPRAYS SAKINA DAILY Folic Acid (Folic Acid), 1,600 MCG PO 6XWK Folic Acid (Folvite), 400 MCG PO 6XWK Lorazepam (Ativan), 0.5 MG PO HS Melatonin (Melatonin), 1-2 MG PO HS Methotrexate (Methotrexate), 15 MG PO WK Methylcellulose (Laxative) (Citrucel Fiber Laxative), 1 DOSE PO DAILY Metoprolol Succ (Toprol Xl) (Toprol-Xl), 50 MG PO BID Multivitamins/Minerals (Mvi With Minerals), 1 TAB PO DAILY Pantoprazole (Protonix), 40 MG PO QAM Polyethylene Glycol-Propylene (Systane Ultra), 1 DROPS OP QAM Prednisone (Prednisone), 5 MG PO QAM Senna (Senokot), 1 TAB PO BID Scheduled PRN Acetaminophen (Tylenol), 1,000 MG PO TID PRN for Pain Ciprofloxacin-Dexamethasone (Ciprodex Otic), 4 DROPS OT BID PRN for Documentation Epinephrine (Epipen 2-Juliocesar), SQ for ALLERGIC REACTION Allergies Coded Allergies: BEE STING (Verified Allergy, Intermediate, BEE/WASP-NAUSEA AND DIZZINESS, 03/25/18) Penicillins (Verified Allergy, Intermediate, RASH (PER PT, WAS A LONG TIME AGO)AMOXICILLIN AND PCN, 03/25/18) Esomeprazole (Verified Allergy, Mild, NAUSEA VOMITING, 03/25/18) Pt does not remember this Antipyrine (Verified Allergy, Unknown, RASH AND BLISTERS, 03/25/18) Pt reports does not remember this Benzocaine (Verified Allergy, Unknown, UNKNOWN, 03/25/18) Hydroxychloroquine (Verified Allergy, Unknown, UNKNOWN, 03/25/18) Misoprostol (Verified Allergy, Unknown, UNKNOWN, 03/25/18) Phenylephrine (Verified Allergy, Unknown, UNKNOWN, 03/25/18) Pseudoephedrine (Verified Allergy, Unknown, UNKNOWN, 03/25/18) Serotonin Reuptake Inhibitors (Verified Allergy, Unknown, UNKNOWN, 03/25/18 ) Sulfa Antibiotics (Verified Allergy, Unknown, UNKNOWN, 03/25/18) Citalopram (Verified Adverse Reaction, Mild, GI UPSET, 03/25/18) Clarithromycin (Verified Adverse Reaction, Mild, GI UPSET, 8/24/18) Physical Exam Vital Signs Date Time Temp Pulse Resp B/P (MAP) Pulse Ox O2 Delivery O2 Flow Rate FiO2 03/25/18 21:07 78 16 121/73 98 Room Air 03/25/18 19:47 70 14 154/90 96 Room Air 03/25/18 18:37 71 18 141/75 96 Room Air 03/25/18 16:08 36.6 63 18 148/81 98 Room Air Physical Exam GENERAL: alert, appears uncomfortable, well nourished, no distress, non-toxic EYE EXAM: normal conjunctiva, PERRL and EOM's grossly intact OROPHARYNX: no exudate, no erythema, lips, buccal mucosa, and tongue normal and mucous membranes are moist NECK: supple, no nuchal rigidity, no adenopathy, non-tender LUNGS: Clear to auscultation. Normal chest wall mechanics HEART: no murmurs, S1 normal and S2 normal ABDOMEN: abdomen soft, non-tender, mild abdominal distension, normo-active bowel sounds, no masses, no rebound or guarding. BACK: Back is symmetrical on inspection and there is no deformity, no midline tenderness, no CVA tenderness. SKIN: no rashes and no bruising UPPER EXTREMITIES: upper extremities are grossly normal. LOWER EXTREMITIES: No pitting edema. NEURO EXAM: Normal sensorium, cranial nerves II-XII grossly intact, normal speech, no gross weakness of arms, no gross weakness of legs. Medical Decision & Procedures ER Provider Diagnostic Interpretation: Radiology results have been interpreted by the radiologist and reviewed by me. KUB HISTORY: Acute nausea with severe constipation. constipation COMPARISON: KUB 03/05/2017. FINDINGS: The bowel gas pattern is non-obstructive. Mild to moderate formed stool about the descending colon with moderate to extensive formed stool about the rectum. There is no organomegaly. Renal shadows are partially obscured by bowel gas. No definite Renal calculi. No ureteral calculi. No pneumoperitoneum or pneumatosis. No fracture. Sigmoidal scoliosis with lumbar levoscoliosis and extensive posterior saray and screw fusion of the lumbar spine with bilateral iliac bolts. Bones appear mildly demineralized. Round calcifications projecting about the bilateral gluteal tissues suggest vascular calcifications. IMPRESSION: 1. Nonobstructive bowel gas pattern. 2. Suggested constipation. Electronically signed by: Heron aSlas M.D. 03/25/2018 6:44 PM Medications Administered Medications (Trade) Dose Ordered Sig/Taylor Route Start Time Stop Time Status Last Admin Dose Admin Sodium Biphosphate/ Sodium Phosphate (Fleet Enema) 132 ml STK-MED ONCE .ROUTE 03/25/18 20:11 03/25/18 20:12 DC 03/25/18 20:11 132 ML Ondansetron HCl (Zofran Odt) 4 mg ONE ONCE PO 03/25/18 21:00 03/25/18 21:01 DC 03/25/18 21:02 4 MG ED Course 1728: The patient was evaluated in room A11B. A complete history and physical exam was performed. 2010: Fleet Enema 132 ml DC. 2049: Patient feeling markedly improved following successful enema. Patient states abdomen less distended and less tender. Patient states mild nausea but would like to try sips of p.o. lio natacha. Discussed with patient adding MiraLAX to her bowel regimen at home. Discussed careful hydration and diet, symptoms to watch and return for. 2100: Zofran 4 mg PO. Medical Decision Differential diagnosis: Etiologies such as functional constipation, impaction, obstruction, volvulus, metabolic abnormality, infection, neurologic, as well as others were entertained. Patient with evolving constipation over the last few days, that has been refractory to additional oral medication. Patient with no other symptoms or physical exam findings to suggest acute vascular etiology including dissection, or mesenteric ischemia. Patient afebrile here and hemodynamically stable throughout. Patient felt marked improvement following administration of an enema and I feel most likely that her relief of her constipation improved her symptoms. I do not suspect occult obstruction, perforation, or GI bleed. I do not suspect bacteremia/sepsis. Patient otherwise well-appearing here and had no complaints. Discussed with patient medications for her bowel regimen at home , need for adequate hydration, symptoms to watch and return for, follow-up with family doctor as a precaution, she verbalized understanding and was agreeable with plan. Medication Reconcilliation Current Medication List: was personally reviewed by me Blood Pressure Screening Patient's blood pressure: Elevated blood pressure Blood pressure disposition: Elevated BP felt to be situational Impression Primary Impression: Constipation Additional Impression: Abdominal pain Scribe Attestation The scribe's documentation has been prepared under my direction and personally reviewed by me in its entirety. I confirm that the note above accurately reflects all work, treatment, procedures, and medical decision making performed by me. Departure Information Dispostion Home / Self-Care Referrals Jack Kilpatrick (PCP) Patient Instructions ED Constipation, [facility] Additional Instructions Please add the MiraLAX daily to your usual regimen of bowel medications to help prevent constipation. Please make sure you are staying well-hydrated and getting plenty of fiber in your diet. If you develop worsening abdominal pain, worsening nausea or vomiting, fevers or chills, noticed black or bloody stools, dizziness, trouble breathing, you have any other new or concerning symptoms, please return the emergency room. Problem Qualifiers Primary Impression: Constipation Constipation type: unspecified constipation type Qualified Codes: K59.00 - Constipation, unspecified Additional Impression: Abdominal pain Abdominal location: generalized Qualified Codes: R10.84 - Generalized abdominal pain
--- NOTE | 2018-03-25 18:45 | DIAGNOSTIC IMAGING REPORT ---
KUB HISTORY: Acute nausea with severe constipation. constipation COMPARISON: KUB 03/05/2017. FINDINGS: The bowel gas pattern is non-obstructive. Mild to moderate formed stool about the descending colon with moderate to extensive formed stool about the rectum. There is no organomegaly. Renal shadows are partially obscured by bowel gas. No definite Renal calculi. No ureteral calculi. No pneumoperitoneum or pneumatosis. No fracture. Sigmoidal scoliosis with lumbar levoscoliosis and extensive posterior saray and screw fusion of the lumbar spine with bilateral iliac bolts. Bones appear mildly demineralized. Round calcifications projecting about the bilateral gluteal tissues suggest vascular calcifications. IMPRESSION: 1. Nonobstructive bowel gas pattern. 2. Suggested constipation. Electronically signed by: Heron Salas M.D. 03/25/2018 6:44 PM Dictated Date/Time: 03/25/2018 6:41 PM
[2018-03-25] MEDS ORDERED: SOD PHOSPHATE/SOD BIPHOSPHATE ENEMA 132 ML BTL ONE (20:11)
[2018-03-25] MEDS ORDERED: ONDANSETRON 4MG OD TAB PO ONE (21:00)
[2018-03-25 21:07] VITALS: BP 121/73; PULSE 78; O2SAT 98
== END 2018-03-25 21:10 | disposition home or self-care (01) ==
LOC: C.EDB 15:48 → C.EDA 21:10
DX: K59.00 Constipation, unspecified (principal); Z98.41 Cataract extraction status, right eye; Z98.42 Cataract extraction status, left eye; I42.1 Obstructive hypertrophic cardiomyopathy; I10 Essential (primary) hypertension; K58.9 Irritable bowel syndrome, unspecified; I34.1 Nonrheumatic mitral (valve) prolapse; M81.0 Age-related osteoporosis without current pathological fracture; Z83.3 Family history of diabetes mellitus; Z82.49 Family history of ischemic heart disease and other diseases of the circulatory system; Z79.82 Long term (current) use of aspirin; Z79.899 Other long term (current) drug therapy; Z88.0 Allergy status to penicillin; Z91.030 Bee allergy status; Z88.2 Allergy status to sulfonamides; Z88.8 Allergy status to other drugs, medicaments and biological substances; Z88.1 Allergy status to other antibiotic agents

== ENCOUNTER 2018-09-26 04:13 | Inpatient (IN) ==
[2018-09-26] MEDS ORDERED: SODIUM CHLORIDE 0.9% 1000ML 1,000 ML IV ONE ×3 (04:44→15:45)
[2018-09-26 04:51] LABS: Eosinophils # (auto) 0.03 K/uL (0-0.5); Eosinophils % (auto) 0.2 %; Hematocrit (blood only) 42.9 % (37-47); Hemoglobin 13.9 g/dL (12.0-16.0); Immature Granulocytes # (auto) 0.04 K/uL (0.00-0.02); Immature Granulocytes % (auto) 0.3 %; Lymphocytes # (auto) 0.45 K/uL (1.2-3.4); Lymphocytes % (auto) 3.1 %; Mean Corpuscular Hgb Conc 32.4 g/dL (32-36); Mean Corpuscular Volume 91.5 fL (80-100); Mean Platelet Volume 10.8 fL (7.4-10.4); Monocytes # (auto) 0.65 K/uL (0.11-0.59); Monocytes % (auto) 4.5 %; Neutrophils # (auto) 13.12 K/uL (1.4-6.5); Neutrophils % (auto) 91.9 %; Platelet Count 192 K/uL (130-400); RDW Coefficient of Variation 15.1 % (11.5-14.5); RDW Standard Deviation 50.2 fL (36.4-46.3); Red Blood Count 4.69 M/uL (4.2-5.4); White Blood Count 14.29 K/uL (4.8-10.8)
[2018-09-26 05:07] LABS: Appearance Urine Clear (Clear); Bacteria Urine Automated Negative (Negative); Bilirubin Urine Negative (Negative); Blood Urine 2+ (Negative); Color Urine Yellow; Epithelial Cell Urine Auto >30 /lpf (0-5); Glucose Urine UA Negative (Negative); Ketones Urine Negative (Negative); Leukocyte Esterase Urine Negative (Negative); Nitrite Urine Negative (Negative); Protein Urine Negative (Negative); Urobilinogen Urine Negative (Negative); pH Urine 6.5 (4.5-7.5)
[2018-09-26 05:08] LABS: Alanine Aminotransferase 22 U/L (12-78); Aspartate Aminotransferase 30 U/L (15-37); BUN Creatinine Ratio 13.6 (10-20); Blood Urea Nitrogen 14 mg/dl (7-18); Calcium 9.7 mg/dl (8.5-10.1); Carbon Dioxide 26 mmol/L (21-32); Chloride 99 mmol/L (98-107); Creatinine Clr Calc Pharmacy 37.9 ml/min; Est GFR (African American) 63.4; Est GFR (Non-African American) 54.7; Glucose 177 mg/dl (70-99); Magnesium 1.5 mg/dl (1.8-2.4); Potassium 3.9 mmol/L (3.5-5.1); Sodium 137 mmol/L (136-145)
[2018-09-26 05:14] LABS: Albumin Globulin Ratio 1.2 (0.9-2); Alkaline Phosphatase 79 U/L (45-117); Bilirubin,Total 0.8 mg/dl (0.2-1); Globulin 3.4 gm/dl (2.5-4.0); Total Protein 7.4 gm/dl (6.4-8.2); Troponin I < 0.015 ng/ml (0-0.045)
[2018-09-26 05:49] LABS: Influenza A virus by PCR Neg for Influ A (Neg); Influenza B virus by PCR Neg for Influ B (Neg)
[2018-09-26] MEDS ORDERED: MAGNESIUM SULFATE / D5W 1 GM/100 ML BAG IV ONE ×2 (05:50→11:30)
[2018-09-26] MEDS ORDERED: IOVERSOL 100ml IV PRN (06:12)
--- NOTE | 2018-09-26 06:37 | XRay Report ---
XR chest 1V portable HISTORY: 77 years-old Female cough acute cough with nausea, vomiting and diarrhea COMPARISON: CT abdomen and pelvis of same day, chest radiograph 02/22/2018 TECHNIQUE: Portable AP view of the chest FINDINGS: The cardiac silhouette is mildly enlarged, unchanged. Dense mitral annular calcifications are noted. Lungs are mildly hyperinflated and demonstrate no pneumothorax, pleural effusion or overt pulmonary e konstantin. Minimal left lung base scarring/atelectasis. No focal airspace consolidation to suggest pneumon ia. Degenerative changes are seen about the shoulders and spine with mid thoracic dextroscoliosis. IMPRESSION: No acute process. The above report was generated using voice recognition software. It may contain grammatical, syntax o r spelling errors. Electronically signed by: Heron Salas M.D. 09/26/2018 6:35 AM
[2018-09-26] MEDS ORDERED: SODIUM CHLORIDE 0.9% 1000ML 1,000 ML IV SCH (07:00)
--- NOTE | 2018-09-26 07:05 | CT Scan Report ---
CT abd pelvis IV con only CLINICAL HISTORY: Abdominal pain, nausea, vomiting, diarrhea COMPARISON STUDY: The 2016 TECHNIQUE: The patient was scanned in a dynamic helical fashion during intravenous administration of 93 cc of Optiray 320. A dose lowering technique was utilized adhering to the principles of ALARA. CT DOSE: 247.07 mGy.cm FINDINGS: Lower chest: There is a pectus excavatum deformity. There are left basilar atelectatic changes. Liver: The contrast-enhanced liver is normal in size, contour, and attenuation. There is no intrahepa tic biliary ductal dilatation. The hepatic veins and portal veins are patent. Gallbladder: Unremarkable. Spleen: Normal in size and attenuation. Pancreas: Unremarkable. Adrenal glands: Unremarkable. Kidneys: There is symmetric renal cortical enhancement. The kidneys are normal in size without hydron ephrosis. Bowel: There are multiple fluid-filled bowel loops. There is borderline wall thickening. There are no transition zones indicate bowel obstruction. There is colonic diverticulosis. There is no evidence o f acute diverticulitis. By history the appendix is surgically absent. The fluid-filled bowel loops ar e consistent with a diarrheal state. Peritoneum: There is no intraperitoneal free air or abdominal ascites. There is small fat-containing umbilical hernia Vasculature: The abdominal aorta is normal in course and caliber. Adenopathy: None. Pelvic viscera: The bladder, and pelvic viscera are unremarkable. Skeletal structures: Postsurgical changes are present within the spine. There are bilateral sacroilia c bolts. IMPRESSION: 1. No evidence of bowel obstruction. No evidence of free air 2. Fluid-filled large and small bowel loops with borderline wall thickening. The findings are consist ent with a diarrheal state/enteritis. 3. Pectus excavatum 4. Diverticulosis. No evidence of acute diverticulitis. Electronically signed by: Abhay Mejia M.D. 09/26/2018 7:03 AM
[2018-09-26] MEDS ORDERED: metroNIDAZOLE 500 MG/100 ML BAG IV STA (07:15)
[2018-09-26] MEDS ORDERED: PANTOprazole 40 MG in SYRINGE 0 ML IV ONE (07:19)
--- NOTE | 2018-09-26 07:38 | Emergency Department Note ---
Entered by Hernán Steward acting as a scribe for Rebekah Malloy DO History of Present Illness General Chief complaint: Vomiting Time Seen by Provider: 09/26/18 04:43 Source: patient Mode of arrival: EMS Limitations: clinical acuity History of Present Illness Onset (ago): unknown (This morning) Location: head Pain Consistency: + intermittent Relieved By: + none Associated symptoms: + chest pain, + weakness and + other (Diarrhea) The patient is a 77 year old female who presents to the ER via EMS due to complaints of intermittent vomiting and diarrhea which began recently. Patient states she woke up this morning feeling nauseas and had multiple vomiting episodes. She states she was coughing up fuzzy stuff originally and then eventually saw small specs of blood. Pt does take pantoprazole daily. Patient states she has also been jittery and had several episodes of diarrhea. She adds that she has felt chest pressure as well with vomiting. Patient states prior to coming to ER she took Tums, Tylenol, and an extra dose of her Lorazepam with minimal relief of her symptoms. Patients past medical history includes an appendectomy. No hx of IBS, IBD, and has previously had a colonoscopy. Patient states her neighbor currently has gastritis. Pt denies blood with diarrhea. States she has diffuse abdominal tenderness. No back pain. EMS states pt was near syncopal when they arrived at her residence and was on the toilet, unable to stand up, and actively having both vomiting and diarrhea. Pt initially hypotensive for EMS but improved with supine position and initiation of IVF. Was initially hypoxic in 80's, but improved with NC and was no longer hypoxic on arrival here. Home Medications Home Medications Medication Instructions Recorded Confirmed Type acetaminophen [Tylenol Extra 1,000 mg PO TID 08/17/18 09/26/18 History Strength] artificial tears(hypromellose) 1 drp OPB QID PRN 08/17/18 09/26/18 History [Systane Gel] aspirin 81 mg PO QAM 08/17/18 09/26/18 History atorvastatin 10 mg PO PM 08/17/18 09/26/18 History calcium carbonate [Tums] 200 mg PO QID PRN 08/17/18 09/26/18 History calcium carbonate-vitamin D3 1 tab PO BID 08/17/18 09/26/18 History [Calcium 600 + D(3)] cetirizine [Zyrtec] 10 mg PO HS 08/17/18 09/26/18 History cholecalciferol (vitamin D3) 1,000 unit PO QAM 08/17/18 09/26/18 History [Vitamin D3] docusate sodium [Colace] 100 - 300 mg PO DAILY 08/17/18 09/26/18 History fluticasone 2 spray INTRANASAL QAM 08/17/18 09/26/18 History lactase [Lactaid] 3,000 unit PO AC PRN 08/17/18 09/26/18 History lorazepam 0.5 mg PO TID PRN 08/17/18 09/26/18 History magnesium hydroxide [Milk of 15 ml PO HS PRN 08/17/18 09/26/18 History Magnesia] melatonin 1 - 2 mg PO HS PRN 08/17/18 09/26/18 History methotrexate sodium 15 mg PO WK 08/17/18 09/26/18 History methylcellulose (with sugar) 1 tbsp PO DAILY 08/17/18 09/26/18 History [Citrucel (sucrose)] metoprolol succinate 50 mg PO BID 08/17/18 09/26/18 History pantoprazole 40 mg PO QAM 08/17/18 09/26/18 History prednisone 5 mg PO QAM 08/17/18 09/26/18 History sennosides-docusate sodium 2 tab PO DAILY PRN 08/17/18 09/26/18 History [Senna-S] ciprofloxacin-dexamethasone 4 drp OTIC (EAR) BID PRN 09/26/18 09/26/18 History [Ciprodex] denosumab [Prolia] 1 dose SUBCUT DIRECTED 09/26/18 09/26/18 History diphenhydramine HCl [Benadryl] 25 mg PO DIRECTED PRN 09/26/18 09/26/18 History epinephrine [EpiPen] 0.3 mg IM DIRECTED PRN 09/26/18 09/26/18 History folic acid 2 mg PO DAILY 09/26/18 09/26/18 History multivitamin with minerals 1 tab PO DAILY 09/26/18 09/26/18 History Allergies Allergy/AdvReac Type Severity Reaction Status Date / Time bee venom protein (honey bee) Allergy Intermediate BEE/WASP-NAUSEA Verified 09/26/18 04:36 AND DIZZINESS Penicillins Allergy Intermediate RASH (PER Verified 09/26/18 04:36 PT, WAS A LONG TIME AGO)AMOXICILLIN AND PCN amoxicillin [From Augmentin] Allergy Mild Unknown Verified 09/26/18 04:36 clavulanic acid Allergy Mild Unknown Verified 09/26/18 04:36 [From Augmentin] esomeprazole Allergy Mild NAUSEA Verified 09/26/18 04:36 VOMITING magnesium citrate Allergy Mild projectile Verified 09/26/18 04:36 vomitting antipyrine Allergy Unknown RASH AND Verified 09/26/18 04:36 BLISTERS benzocaine Allergy Unknown dental - Verified 09/26/18 04:36 tingling on tongue hydroxychloroquine Allergy Unknown UNKNOWN Verified 09/26/18 04:36 misoprostol Allergy Unknown UNKNOWN Verified 09/26/18 04:36 phenylephrine Allergy Unknown UNKNOWN Verified 09/26/18 04:36 pseudoephedrine Allergy Unknown UNKNOWN Verified 09/26/18 04:36 Serotonin 5HT-3 Antagonists Allergy Unknown UNKNOWN Verified 09/26/18 04:36 Sulfa (Sulfonamide Allergy Unknown UNKNOWN Verified 09/26/18 04:36 Antibiotics) citalopram AdvReac Mild GI UPSET Verified 09/26/18 04:36 clarithromycin AdvReac Mild GI UPSET Verified 09/26/18 04:36 Past Med/Surg History Medical History Mitral valve prolapse (Chronic) IBS (irritable bowel syndrome) (Chronic) Diverticulitis (Chronic) Lumbar stenosis with neurogenic claudication (Chronic) Anxiety GERD (gastroesophageal reflux disease) HOCM (hypertrophic obstructive cardiomyopathy) Hiatal hernia Hyperlipidemia Hypertension Hypertrophic cardiomyopathy with LVOT and LEYDA Kidney stones passed on own Lactose intolerance Osteoporosis PONV (postoperative nausea and vomiting) Rheumatoid arthritis Surgical History History of appendectomy History of cataract surgery right and left History of endoscopic sinus surgery History of lumbar spinal fusion History of tonsillectomy and adenoidectomy Hx of mastoidectomy Social History Communication Ability: Effective Beliefs That Will Affect Care: None Current Living Situation: Spouse and Personal Care Facility Other Information That Helps Us Care for You: No Feels Safe at Home: Yes Safety Concerns: Feels Safe At This Time Smoking Status: Never smoker Hx Alcohol Use: No Hx Substance Use: No Review of Systems See HPI for pertinent positives & negatives. and A total of 10 systems reviewed and were otherwise negative Physical Exam Vital Signs Vital Signs - 24 hr 09/27/18 21:22 09/27/18 23:06 09/28/18 03:22 Temperature 37.1 C 36.9 C Temperature Source Oral Oral Pulse Rate [Right Finger] 78 69 71 Pulse Rhythm [Right Finger] Regular Pulse Strength [Right Finger] Normal Respiratory Rate 20 18 Blood Pressure [Left Arm] 146/69 H 132/70 153/70 H Blood Pressure Mean [Left Arm] 94 90 97 Blood Pressure Position [Left Arm] Lying Right Lateral Lying Pulse Oximetry 94 96 Oxygen Delivery Method Room Air Room Air 09/28/18 07:33 09/28/18 11:27 09/28/18 15:52 Temperature 37.2 C 36.9 C 37.1 C Temperature Source Oral Oral Oral Pulse Rate [Right Finger] 63 66 67 Pulse Rhythm [Right Finger] Pulse Strength [Right Finger] Respiratory Rate 18 18 18 Blood Pressure [Left Arm] 139/68 156/71 H 169/68 H Blood Pressure Mean [Left Arm] 91 99 101 Blood Pressure Position [Left Arm] Lying Lying Left Lateral Pulse Oximetry 94 94 94 Oxygen Delivery Method Room Air Room Air Room Air 09/28/18 16:07 Temperature 37.1 C Temperature Source Oral Pulse Rate [Right Finger] 67 Pulse Rhythm [Right Finger] Pulse Strength [Right Finger] Respiratory Rate 18 Blood Pressure [Left Arm] 169/68 H Blood Pressure Mean [Left Arm] 101 Blood Pressure Position [Left Arm] Left Lateral Pulse Oximetry 94 Oxygen Delivery Method Room Air GENERAL: alert, pale, ill appearing, well nourished, mild distress, non-toxic EYE EXAM: normal conjunctiva, PERRL and EOM's grossly intact OROPHARYNX: no exudate, no erythema, lips, buccal mucosa, and tongue normal and mucous membranes are dry NECK: supple, no nuchal rigidity, no adenopathy, non-tender LUNGS: Clear to auscultation. Normal chest wall mechanics. No wheezes, rhonchi, or rales HEART: Tachycardic, no murmurs, S1 normal and S2 normal ABDOMEN: abdomen soft, generalized abdominal discomfort, normo-active bowel sounds, no masses, no rebound or guarding. BACK: Back is symmetrical on inspection and there is no deformity, no midline tenderness, no CVA tenderness. SKIN: no rashes and no bruising UPPER EXTREMITIES: upper extremities are grossly normal. FROM, nml pulses b/l. LOWER EXTREMITIES: No pitting edema. FROM, nml pulses b/l. NEURO EXAM: Normal sensorium, cranial nerves II-XII grossly intact, normal speech, no gross weakness of arms, no gross weakness of legs. Course 0430: Past medical records reviewed. The patient was evaluated in room B6, and a complete history and physical examination were performed. 0720: I reevaluated the patient who has not had an improvement in her symptoms. 0735: Case discussed with Dr. Rai for additional evaluation. Consultations Consultation #1: I reviewed the patient's case with Dr. Rai. She will evaluate the patient for further management. Administered Medications Acetaminophen (Tylenol) 1,000 mg PO TID COUNTS INCLUDE 234 BEDS AT THE [facility] Stop: 10/26/18 13:59 Last Admin: 09/28/18 14:50 Dose: 1,000 mg Documented by: [id number] Cosigned by: [id number] Admin: 09/28/18 08:14 Dose: 1,000 mg Documented by: [id number] Admin: 09/27/18 21:25 Dose: 1,000 mg Documented by: [id number] Admin: 09/27/18 14:55 Dose: Not Given Documented by: [id number] Admin: 09/27/18 09:20 Dose: 1,000 mg Documented by: [id number] Admin: 09/26/18 21:20 Dose: 1,000 mg Documented by: [id number] Admin: 09/26/18 14:02 Dose: 1,000 mg Documented by: [id number] Aspirin (Ecotrin Ectab) 81 mg PO QAM DAVID Stop: 10/27/18 08:59 Last Admin: 09/28/18 08:11 Dose: 81 mg Documented by: [id number] Admin: 09/27/18 09:16 Dose: 81 mg Documented by: [id number] Atorvastatin Calcium (Lipitor) 10 mg PO PM DAVID Stop: 10/26/18 20:59 Last Admin: 09/27/18 21:24 Dose: 10 mg Documented by: [id number] Admin: 09/26/18 21:18 Dose: 10 mg Documented by: [id number] Cetirizine HCl (Zyrtec) 10 mg PO HS COUNTS INCLUDE 234 BEDS AT THE [facility] Stop: 10/26/18 20:59 Last Admin: 09/27/18 21:24 Dose: 10 mg Documented by: [id number] Admin: 09/26/18 21:18 Dose: 10 mg Documented by: [id number] Enoxaparin Sodium (Lovenox) 30 mg SQ Q24H COUNTS INCLUDE 234 BEDS AT THE [facility] Stop: 10/26/18 10:54 Last Admin: 09/28/18 11:04 Dose: 30 mg Documented by: [id number] Admin: 09/27/18 10:55 Dose: Not Given Documented by: [id number] Admin: 09/26/18 14:01 Dose: 30 mg Documented by: [id number] Fluticasone Propionate (Flonase) 2 sprays NA QAM COUNTS INCLUDE 234 BEDS AT THE [facility] Stop: 10/27/18 08:59 Last Admin: 09/28/18 08:09 Dose: 2 sprays Documented by: [id number] Admin: 09/27/18 09:19 Dose: 2 sprays Documented by: [id number] Folic Acid (Folvite) 2.5 mg PO DAILY COUNTS INCLUDE 234 BEDS AT THE [facility] Stop: 10/27/18 08:59 Last Admin: 09/28/18 08:11 Dose: 2.5 mg Documented by: [id number] Admin: 09/27/18 09:17 Dose: 2.5 mg Documented by: [id number] Promethazine HCl 12.5 mg/ (Sodium Chloride) 50.5 mls @ 202 mls/hr IV Q6H PRN PRN Reason: Nausea And Vomiting Stop: 10/26/18 10:54 Last Infusion: 09/28/18 11:03 Dose: 0 mls/hr Documented by: [id number] Admin: 09/28/18 10:17 Dose: 202 mls/hr Documented by: [id number] Infusion: 09/27/18 20:22 Dose: 0 mls/hr Documented by: [id number] Admin: 09/27/18 20:07 Dose: 202 mls/hr Documented by: [id number] Infusion: 09/27/18 09:42 Dose: 0 mls/hr Documented by: [id number] Admin: 09/27/18 09:27 Dose: 202 mls/hr Documented by: [id number] Potassium Chloride 20 meq/ (Lactated Ringer's) 1,010 mls @ 80 mls/hr IV .[id number] COUNTS INCLUDE 234 BEDS AT THE [facility] Stop: 10/28/18 07:59 Last Admin: 09/28/18 08:41 Dose: 80 mls/hr Documented by: [id number] Ioversol (Optiray 320 100ml) 93 ml IV ONCE PRN PRN Reason: Interaction Checking Stop: 09/30/18 06:11 Last Admin: 09/26/18 06:12 Dose: 93 ml Documented by: [id number] Metoprolol Succinate (Toprol Xl) 50 mg PO BID COUNTS INCLUDE 234 BEDS AT THE [facility] Stop: 10/26/18 10:54 Last Admin: 09/28/18 08:14 Dose: 50 mg Documented by: [id number] Admin: 09/27/18 21:24 Dose: 50 mg Documented by: [id number] Admin: 09/27/18 09:16 Dose: 50 mg Documented by: [id number] Admin: 09/26/18 21:15 Dose: Not Given Documented by: [id number] Admin: 09/26/18 12:35 Dose: 50 mg Documented by: [id number] Miscellaneous (Order Awaiting Action) 1 ea N/A QS COUNTS INCLUDE 234 BEDS AT THE [facility] Stop: 10/26/18 15:59 Last Admin: 09/28/18 17:27 Dose: Not Given Documented by: [id number] Admin: 09/28/18 07:51 Dose: Not Given Documented by: [id number] Admin: 09/27/18 23:30 Dose: Not Given Documented by: [id number] Admin: 09/27/18 17:09 Dose: Not Given Documented by: [id number] Admin: 09/27/18 10:13 Dose: Not Given Documented by: [id number] Admin: 09/27/18 00:01 Dose: Not Given Documented by: [id number] Admin: 09/26/18 17:02 Dose: Not Given Documented by: [id number] Multivitamins/Minerals (Caltrate Plus) 1 tab PO BID COUNTS INCLUDE 234 BEDS AT THE [facility] Stop: 10/26/18 20:59 Last Admin: 09/28/18 08:11 Dose: 1 tab Documented by: [id number] Admin: 09/27/18 21:25 Dose: Not Given Documented by: [id number] Admin: 09/27/18 09:16 Dose: 1 tab Documented by: [id number] Admin: 09/26/18 21:18 Dose: 1 tab Documented by: [id number] Multivitamins/Minerals (Multivitamin W/ Minerals Tab) 1 tab PO DAILY COUNTS INCLUDE 234 BEDS AT THE [facility] Stop: 10/27/18 08:59 Last Admin: 09/28/18 08:13 Dose: 1 tab Documented by: [id number] Admin: 09/27/18 09:16 Dose: 1 tab Documented by: [id number] [facility]Pred[facility]one) [facility] [place] Stop: 10/26/18 10:54 Last Admin: 09/28/18 08:41 Dose: 5 mg Documented by: [id number] Admin: 09/27/18 09:16 Dose: 5 mg Documented by: [id number] Admin: 09/26/18 12:35 Dose: 5 mg Documented by: [id number] Vitamin D (Vitamin D3) 1,000 [facility] [place] Stop: 10/27/18 08:59 Last Admin: 09/28/18 08:15 Dose: 1,000 units Documented by: [id number] Admin: 09/27/18 09:16 Dose: 1,000 units Documented by: [id number] Discontinued Medications Sodium Chloride (Nss 1000ml) 1,000 mls @ 999 mls/hr IV .Q1H1M ONE Stop: 09/26/18 05:44 Last Infusion: 09/26/18 06:14 Dose: Documented by: [id number] Admin: 09/26/18 04:58 Dose: 999 mls/hr Documented by: [id number] Sodium Chloride (Nss 1000ml) 1,000 mls @ 999 mls/hr IV .Q1H1M ONE Stop: 09/26/18 06:37 Last Infusion: 09/26/18 08:33 Dose: 0 mls/hr Documented by: [id number] Admin: 09/26/18 06:15 Dose: 999 mls/hr Documented by: [id number] Magnesium Sulfate/Dextrose (Magnesium Sulfate / D5w) 1 gm in 100 mls @ 100 mls/hr IV ONE ONE Stop: 09/26/18 06:49 Last Infusion: 09/26/18 07:35 Dose: 0 mls/hr Documented by: [id number] Admin: 09/26/18 06:39 Dose: 100 mls/hr Documented by: [id number] Sodium Chloride (Nss 1000ml) 1,000 mls @ 125 mls/hr IV .Q8H COUNTS INCLUDE 234 BEDS AT THE [facility] Stop: 10/26/18 06:59 Last Infusion: 09/26/18 12:39 Dose: 0 mls/hr Documented by: [id number] Admin: 09/26/18 08:32 Dose: 125 mls/hr Documented by: [id number] Metronidazole (Flagyl) 500 mg in 100 mls @ 100 mls/hr IV NOW STA Stop: 09/26/18 08:14 Last Infusion: 09/26/18 08:50 Dose: 0 mls/hr Documented by: [id number] Admin: 09/26/18 07:46 Dose: 100 mls/hr Documented by: [id number] Pantoprazole Sodium 40 mg/ (Syringe) 10 mls @ 5 mls/min IV NOW ONE Stop: 09/26/18 07:20 Last Admin: 09/26/18 08:33 Dose: 5 mls/min Documented by: [id number] Sodium Chloride (Nss 1000ml) 1,000 mls @ 100 mls/hr IV .Q10H DAVID Stop: 10/26/18 10:54 Last Infusion: 09/28/18 07:54 Dose: 0 mls/hr Documented by: [id number] Admin: 09/28/18 02:30 Dose: 100 mls/hr Documented by: [id number] Infusion: 09/28/18 01:09 Dose: 100 mls/hr Documented by: [id number] Admin: 09/27/18 15:09 Dose: 100 mls/hr Documented by: [id number] Infusion: 09/27/18 11:38 Dose: 100 mls/hr Documented by: [id number] Admin: 09/27/18 01:38 Dose: 100 mls/hr Documented by: [id number] Infusion: 09/26/18 22:35 Dose: 100 mls/hr Documented by: [id number] Admin: 09/26/18 12:35 Dose: 100 mls/hr Documented by: [id number] Magnesium Sulfate/Dextrose (Magnesium Sulfate / D5w) 1 gm in 100 mls @ 100 mls/hr IV ONE ONE Stop: 09/26/18 12:29 Last Infusion: 09/26/18 13:52 Dose: 0 mls/hr Documented by: [id number] Admin: 09/26/18 12:35 Dose: 100 mls/hr Documented by: [id number] Metronidazole (Flagyl) 500 mg in 100 mls @ 100 mls/hr IV Q8H DAVID Stop: 10/06/18 15:59 Last Admin: 09/27/18 17:11 Dose: Not Given Documented by: [id number] Infusion: 09/27/18 11:03 Dose: 0 mls/hr Documented by: [id number] Admin: 09/27/18 10:03 Dose: 100 mls/hr Documented by: [id number] Infusion: 09/27/18 01:24 Dose: 0 mls/hr Documented by: [id number] Admin: 09/26/18 23:55 Dose: 100 mls/hr Documented by: [id number] Infusion: 09/26/18 18:02 Dose: 0 mls/hr Documented by: [id number] Admin: 09/26/18 17:02 Dose: 100 mls/hr Documented by: [id number] Sodium Chloride (Nss 1000ml) 1,000 mls @ 999 mls/hr IV .Q1H1M ONE Stop: 09/26/18 16:45 Last Infusion: 09/26/18 19:11 Dose: 0 mls/hr Documented by: [id number] Admin: 09/26/18 16:20 Dose: 999 mls/hr Documented by: [id number] Hydrocortisone Sodium (Succinate 50 mg/ Syringe) 1 mls @ 4 mls/min IV Q8H DAVID Stop: 10/27/18 00:00 Last Admin: 09/27/18 23:32 Dose: 4 mls/min Documented by: [id number] Admin: 09/27/18 17:39 Dose: 4 mls/min Documented by: [id number] Admin: 09/27/18 10:01 Dose: 4 mls/min Documented by: [id number] Admin: 09/26/18 23:58 Dose: 4 mls/min Documented by: [id number] Hydrocortisone Sodium (Succinate 50 mg/ Syringe) 1 mls @ 4 mls/min IV NOW STA Stop: 09/26/18 15:40 Last Admin: 09/26/18 17:02 Dose: 4 mls/min Documented by: [id number] Pantoprazole Sodium (Protonix) 40 mg PO QAM DAVID Stop: 10/27/18 08:59 Last Admin: 09/27/18 09:16 Dose: 40 mg Documented by: [id number] Potassium Chloride (Klor-Con M20) 40 meq PO NOW STA Stop: 09/28/18 07:51 Last Admin: 09/28/18 08:10 Dose: 40 meq Documented by: [id number] Raspberry (Raspberry) 5 ml PO Q6 DAVID Stop: 10/11/18 17:59 Last Admin: 09/27/18 20:48 Dose: Not Given Documented by: [id number] Vancomycin HCl (Vancomycin Hcl) 125 mg PO Q6 COUNTS INCLUDE 234 BEDS AT THE [facility] Stop: 10/07/18 17:59 Last Admin: 09/27/18 20:48 Dose: Not Given Documented by: [id number] Medical Decision Making Differential Diagnosis Differential diagnosis: Etiologies such as biliary colic, cholecystitis, hepatitis, perihepatitis, pancreatitis, cardiac disease, pancreatitis, gastritis, peptic ulcer disease, appendicitis, ovarian cyst, ovarian torsion, ectopic , pelvic inflammatory disease, cystitis, diverticulitis, mesenteric ischemia, inflammatory bowel disease, ileus, bowel obstruction, aortic pathology, shingles, acute coronary syndrome, myocardial infarction, CVA, TIA, anemia, infection, pneumonia, UTI, pyelonephritis, poor nutrition, dehydration, electrolyte disturbance, hypoglycemia as well as others were considered. Medical Records Attestation: I reviewed the patient's medical records. Home Medications Current Medication List: was personally reviewed by me Laboratory Data Attestation: I reviewed the patient's lab results. Result diagrams: 09/28/18 05:29 09/28/18 05:29 Lab Results 09/26/18 09/26/18 09/26/18 Range/Units 04:30 04:30 04:43 WBC 14.29 H (4.8-10.8) K/uL RBC 4.69 (4.2-5.4) M/uL Hgb 13.9 (12.0-16.0) g/dL Hct 42.9 (37-47) % MCV 91.5 (80-100) fL MCH 29.6 (25-34) pg MCHC 32.4 (32-36) g/dL RDW Std Deviation 50.2 H (36.4-46.3) fL RDW Coeff of Matteo 15.1 H (11.5-14.5) % Plt Count 192 (130-400) K/uL MPV 10.8 H (7.4-10.4) fL Immature Gran % (Auto) 0.3 % Neut % (Auto) 91.9 % Lymph % (Auto) 3.1 % [place] % (Auto) 4.5 % Eos % (Auto) 0.2 % Baso % (Auto) 0.0 % Immature Gran # (Auto) 0.04 H (0.00-0.02) K/uL Neut # (Auto) 13.12 H (1.4-6.5) K/uL Lymph # (Auto) 0.45 L (1.2-3.4) K/uL [place] # (Auto) 0.65 H (0.11-0.59) K/uL Eos # (Auto) 0.03 (0-0.5) K/uL Baso # (Auto) 0.00 (0-0.2) K/uL Platelet Estimate (Normal) PT (9.0-12.0) Seconds INR (0.9-1.1) Sodium 137 (136-145) mmol/L Potassium 3.9 (3.5-5.1) mmol/L Chloride 99 (98-107) mmol/L Carbon Dioxide 26 (21-32) mmol/L Anion Gap 12.0 H (3-11) BUN 14 (7-18) mg/dl Creatinine 1.00 (0.6-1.2) mg/dl Est Cr Clr Drug Dosing 37.9 ml/min Est GFR ( Amer) 63.4 Est GFR (Non-Af Amer) 54.7 BUN/Creatinine Ratio 13.6 (10-20) Glucose 177 H (70-99) mg/dl POC Lactic Acid Harsha 5.47 H (0.90-1.70) mmol/L Lactate (0.4-2.0) mmol/L Calcium 9.7 (8.5-10.1) mg/dl Magnesium 1.5 L (1.8-2.4) mg/dl Total Bilirubin 0.8 (0.2-1) mg/dl AST 30 (15-37) U/L ALT 22 (12-78) U/L Alkaline Phosphatase 79 (45-117) U/L Troponin I < 0.015 (0-0.045) ng/ml Total Protein 7.4 (6.4-8.2) gm/dl Albumin 4.0 (3.4-5.0) gm/dl Globulin 3.4 (2.5-4.0) gm/dl Albumin/Globulin Ratio 1.2 (0.9-2) Lipase 81 (73-393) U/L Urine Color Urine Appearance (Clear) Urine pH (4.5-7.5) Ur Specific [employer] (1.000-1.030) Urine Protein (Negative) Urine Glucose (UA) (Negative) Urine Ketones (Negative) Urine Blood (Negative) Urine Nitrite (Negative) Urine Bilirubin (Negative) Urine Urobilinogen (Negative) Ur Leukocyte Esterase (Negative) Urine WBC (Auto) (0-5) /hpf Urine RBC (Auto) (0-4) /hpf U Hyaline Cast (Auto) (0-5) /lpf U Epithel Cells (Auto) (0-5) /lpf Urine Bacteria (Auto) (Negative) Ur Renal Epithelial Cell Granular Casts (0) /lpf Stl C. diff Tox B Gene (Neg) Stl C.difficile Tox A&B (Negative) Influenza Type A (PCR) (Neg) Influenza Type B (PCR) (Neg) 09/26/18 09/26/18 09/26/18 Range/Units 04:45 05:04 05:52 WBC (4.8-10.8) K/uL RBC (4.2-5.4) M/uL Hgb (12.0-16.0) g/dL Hct (37-47) % MCV (80-100) fL MCH (25-34) pg MCHC (32-36) g/dL RDW Std Deviation (36.4-46.3) fL RDW Coeff of Matteo (11.5-14.5) % Plt Count (130-400) K/uL MPV (7.4-10.4) fL Immature Gran % (Auto) % Neut % (Auto) % Lymph % (Auto) % [place] % (Auto) % Eos % (Auto) % Baso % (Auto) % Immature Gran # (Auto) (0.00-0.02) K/uL Neut # (Auto) (1.4-6.5) K/uL Lymph # (Auto) (1.2-3.4) K/uL [place] # (Auto) (0.11-0.59) K/uL Eos # (Auto) (0-0.5) K/uL Baso # (Auto) (0-0.2) K/uL Platelet Estimate (Normal) PT (9.0-12.0) Seconds INR (0.9-1.1) Sodium (136-145) mmol/L Potassium (3.5-5.1) mmol/L Chloride (98-107) mmol/L Carbon Dioxide (21-32) mmol/L Anion Gap (3-11) BUN (7-18) mg/dl Creatinine (0.6-1.2) mg/dl Est Cr Clr Drug Dosing ml/min Est GFR ( Amer) Est GFR (Non-Af Amer) BUN/Creatinine Ratio (10-20) Glucose (70-99) mg/dl POC Lactic Acid Harsha (0.90-1.70) mmol/L Lactate (0.4-2.0) mmol/L Calcium (8.5-10.1) mg/dl Magnesium (1.8-2.4) mg/dl Total Bilirubin (0.2-1) mg/dl AST (15-37) U/L ALT (12-78) U/L Alkaline Phosphatase (45-117) U/L Troponin I (0-0.045) ng/ml Total Protein (6.4-8.2) gm/dl Albumin (3.4-5.0) gm/dl Globulin (2.5-4.0) gm/dl Albumin/Globulin Ratio (0.9-2) Lipase (73-393) U/L Urine Color Yellow Urine Appearance Clear (Clear) Urine pH 6.5 (4.5-7.5) Ur Specific [employer] 1.020 (1.000-1.030) Urine Protein Negative (Negative) Urine Glucose (UA) Negative (Negative) Urine Ketones Negative (Negative) Urine Blood 2+ H (Negative) Urine Nitrite Negative (Negative) Urine Bilirubin Negative (Negative) Urine Urobilinogen Negative (Negative) Ur Leukocyte Esterase Negative (Negative) Urine WBC (Auto) 1-5 (0-5) /hpf Urine RBC (Auto) 10-30 H (0-4) /hpf U Hyaline Cast (Auto) 1-5 (0-5) /lpf U Epithel Cells (Auto) >30 H (0-5) /lpf Urine Bacteria (Auto) Negative (Negative) Ur Renal Epithelial Cell Not Reportable Granular Casts 1-5 H (0) /lpf Stl C. diff Tox B Gene Pos C.diff Toxin B A (Neg) Stl C.difficile Tox A&B Negative (Negative) Influenza Type A (PCR) Neg for Influ A (Neg) Influenza Type B (PCR) Neg for Influ B (Neg) 09/26/18 09/26/18 09/26/18 Range/Units 07:11 11:43 11:43 WBC (4.8-10.8) K/uL RBC (4.2-5.4) M/uL Hgb (12.0-16.0) g/dL Hct (37-47) % MCV (80-100) fL MCH (25-34) pg MCHC (32-36) g/dL RDW Std Deviation (36.4-46.3) fL RDW Coeff of Matteo (11.5-14.5) % Plt Count (130-400) K/uL MPV (7.4-10.4) fL Immature Gran % (Auto) % Neut % (Auto) % Lymph % (Auto) % [place] % (Auto) % Eos % (Auto) % Baso % (Auto) % Immature Gran # (Auto) (0.00-0.02) K/uL Neut # (Auto) (1.4-6.5) K/uL Lymph # (Auto) (1.2-3.4) K/uL [place] # (Auto) (0.11-0.59) K/uL Eos # (Auto) (0-0.5) K/uL Baso # (Auto) (0-0.2) K/uL Platelet Estimate (Normal) PT 12.4 H (9.0-12.0) Seconds INR 1.2 H (0.9-1.1) Sodium (136-145) mmol/L Potassium (3.5-5.1) mmol/L Chloride (98-107) mmol/L Carbon Dioxide (21-32) mmol/L Anion Gap (3-11) BUN (7-18) mg/dl Creatinine (0.6-1.2) mg/dl Est Cr Clr Drug Dosing ml/min Est GFR ( Amer) Est GFR (Non-Af Amer) BUN/Creatinine Ratio (10-20) Glucose (70-99) mg/dl POC Lactic Acid Harsha 2.29 H (0.90-1.70) mmol/L Lactate (0.4-2.0) mmol/L Calcium (8.5-10.1) mg/dl Magnesium (1.8-2.4) mg/dl Total Bilirubin (0.2-1) mg/dl AST (15-37) U/L ALT (12-78) U/L Alkaline Phosphatase (45-117) U/L Troponin I 0.037 (0-0.045) ng/ml Total Protein (6.4-8.2) gm/dl Albumin (3.4-5.0) gm/dl Globulin (2.5-4.0) gm/dl Albumin/Globulin Ratio (0.9-2) Lipase (73-393) U/L Urine Color Urine Appearance (Clear) Urine pH (4.5-7.5) Ur Specific [employer] (1.000-1.030) Urine Protein (Negative) Urine Glucose (UA) (Negative) Urine Ketones (Negative) Urine Blood (Negative) Urine Nitrite (Negative) Urine Bilirubin (Negative) Urine Urobilinogen (Negative) Ur Leukocyte Esterase (Negative) Urine WBC (Auto) (0-5) /hpf Urine RBC (Auto) (0-4) /hpf U Hyaline Cast (Auto) (0-5) /lpf U Epithel Cells (Auto) (0-5) /lpf Urine Bacteria (Auto) (Negative) Ur Renal Epithelial Cell Granular Casts (0) /lpf Stl C. diff Tox B Gene (Neg) Stl C.difficile Tox A&B (Negative) Influenza Type A (PCR) (Neg) Influenza Type B (PCR) (Neg) 09/26/18 09/26/18 09/26/18 Range/Units 15:45 15:45 15:45 WBC 4.65 L D (4.8-10.8) K/uL RBC 4.23 (4.2-5.4) M/uL Hgb 12.4 (12.0-16.0) g/dL Hct 38.0 (37-47) % MCV 89.8 (80-100) fL MCH 29.3 (25-34) pg MCHC 32.6 (32-36) g/dL RDW Std Deviation 49.6 H (36.4-46.3) fL RDW Coeff of Matteo 15.2 H (11.5-14.5) % Plt Count 150 (130-400) K/uL MPV 10.5 H (7.4-10.4) fL Immature Gran % (Auto) 0.0 % Neut % (Auto) 91.8 % Lymph % (Auto) 4.3 % [place] % (Auto) 3.9 % Eos % (Auto) 0.0 % Baso % (Auto) 0.0 % Immature Gran # (Auto) 0.00 (0.00-0.02) K/uL Neut # (Auto) 4.27 (1.4-6.5) K/uL Lymph # (Auto) 0.20 L (1.2-3.4) K/uL [place] # (Auto) 0.18 (0.11-0.59) K/uL Eos # (Auto) 0.00 (0-0.5) K/uL Baso # (Auto) 0.00 (0-0.2) K/uL Platelet Estimate (Normal) PT (9.0-12.0) Seconds INR (0.9-1.1) Sodium 139 (136-145) mmol/L Potassium 3.8 (3.5-5.1) mmol/L Chloride 109 H (98-107) mmol/L Carbon Dioxide 21 (21-32) mmol/L Anion Gap 9.0 (3-11) BUN 12 (7-18) mg/dl Creatinine 0.73 (0.6-1.2) mg/dl Est Cr Clr Drug Dosing 51.9 ml/min Est GFR ( Amer) 92.7 Est GFR (Non-Af Amer) 80.0 BUN/Creatinine Ratio 16.6 (10-20) Glucose 140 H (70-99) mg/dl POC Lactic Acid Harsha (0.90-1.70) mmol/L Lactate 2.8 H* (0.4-2.0) mmol/L Calcium 7.7 L D (8.5-10.1) mg/dl Magnesium (1.8-2.4) mg/dl Total Bilirubin 0.6 (0.2-1) mg/dl AST 25 (15-37) U/L ALT 16 (12-78) U/L Alkaline Phosphatase 48 (45-117) U/L Troponin I 0.055 H* (0-0.045) ng/ml Total Protein 5.3 L D (6.4-8.2) gm/dl Albumin 2.8 L (3.4-5.0) gm/dl Globulin 2.5 (2.5-4.0) gm/dl Albumin/Globulin Ratio 1.1 (0.9-2) Lipase (73-393) U/L Urine Color Urine Appearance (Clear) Urine pH (4.5-7.5) Ur Specific [employer] (1.000-1.030) Urine Protein (Negative) Urine Glucose (UA) (Negative) Urine Ketones (Negative) Urine Blood (Negative) Urine Nitrite (Negative) Urine Bilirubin (Negative) Urine Urobilinogen (Negative) Ur Leukocyte Esterase (Negative) Urine WBC (Auto) (0-5) /hpf Urine RBC (Auto) (0-4) /hpf U Hyaline Cast (Auto) (0-5) /lpf U Epithel Cells (Auto) (0-5) /lpf Urine Bacteria (Auto) (Negative) Ur Renal Epithelial Cell Granular Casts (0) /lpf Stl C. diff Tox B Gene (Neg) Stl C.difficile Tox A&B (Negative) Influenza Type A (PCR) (Neg) Influenza Type B (PCR) (Neg) 09/27/18 09/27/18 09/27/18 Range/Units 05:34 05:34 05:34 WBC 2.98 L (4.8-10.8) K/uL RBC 3.62 L (4.2-5.4) M/uL Hgb 10.7 L (12.0-16.0) g/dL Hct 33.3 L (37-47) % MCV 92.0 (80-100) fL MCH 29.6 (25-34) pg MCHC 32.1 (32-36) g/dL RDW Std Deviation 51.3 H (36.4-46.3) fL RDW Coeff of Matteo 15.3 H (11.5-14.5) % Plt Count 108 L (130-400) K/uL MPV 11.3 H (7.4-10.4) fL Immature Gran % (Auto) 0.3 % Neut % (Auto) 81.6 % Lymph % (Auto) 11.7 % [place] % (Auto) 6.4 % Eos % (Auto) 0.0 % Baso % (Auto) 0.0 % Immature Gran # (Auto) 0.01 (0.00-0.02) K/uL Neut # (Auto) 2.43 (1.4-6.5) K/uL Lymph # (Auto) 0.35 L (1.2-3.4) K/uL [place] # (Auto) 0.19 (0.11-0.59) K/uL Eos # (Auto) 0.00 (0-0.5) K/uL Baso # (Auto) 0.00 (0-0.2) K/uL Platelet Estimate (Normal) PT (9.0-12.0) Seconds INR (0.9-1.1) Sodium 142 (136-145) mmol/L Potassium 3.6 (3.5-5.1) mmol/L Chloride 114 H (98-107) mmol/L Carbon Dioxide 23 (21-32) mmol/L Anion Gap 5.0 (3-11) BUN 16 (7-18) mg/dl Creatinine 0.65 (0.6-1.2) mg/dl Est Cr Clr Drug Dosing 58.2 ml/min Est GFR ( Amer) 100.0 Est GFR (Non-Af Amer) 86.2 BUN/Creatinine Ratio 24.3 H (10-20) Glucose 117 H (70-99) mg/dl POC Lactic Acid Harsha (0.90-1.70) mmol/L Lactate (0.4-2.0) mmol/L Calcium 6.9 L (8.5-10.1) mg/dl Magnesium (1.8-2.4) mg/dl Total Bilirubin (0.2-1) mg/dl AST (15-37) U/L ALT (12-78) U/L Alkaline Phosphatase (45-117) U/L Troponin I 0.044 (0-0.045) ng/ml Total Protein (6.4-8.2) gm/dl Albumin (3.4-5.0) gm/dl Globulin (2.5-4.0) gm/dl Albumin/Globulin Ratio (0.9-2) Lipase (73-393) U/L Urine Color Urine Appearance (Clear) Urine pH (4.5-7.5) Ur Specific [employer] (1.000-1.030) Urine Protein (Negative) Urine Glucose (UA) (Negative) Urine Ketones (Negative) Urine Blood (Negative) Urine Nitrite (Negative) Urine Bilirubin (Negative) Urine Urobilinogen (Negative) Ur Leukocyte Esterase (Negative) Urine WBC (Auto) (0-5) /hpf Urine RBC (Auto) (0-4) /hpf U Hyaline Cast (Auto) (0-5) /lpf U Epithel Cells (Auto) (0-5) /lpf Urine Bacteria (Auto) (Negative) Ur Renal Epithelial Cell Granular Casts (0) /lpf Stl C. diff Tox B Gene (Neg) Stl C.difficile Tox A&B (Negative) Influenza Type A (PCR) (Neg) Influenza Type B (PCR) (Neg) 09/27/18 09/28/18 09/28/18 Range/Units 15:56 05:29 05:29 WBC 3.43 L (4.8-10.8) K/uL RBC 3.34 L (4.2-5.4) M/uL Hgb 9.8 L (12.0-16.0) g/dL Hct 30.9 L (37-47) % MCV 92.5 (80-100) fL MCH 29.3 (25-34) pg MCHC 31.7 L (32-36) g/dL RDW Std Deviation 51.6 H (36.4-46.3) fL RDW Coeff of Matteo 15.2 H (11.5-14.5) % Plt Count 70 L (130-400) K/uL MPV 10.4 (7.4-10.4) fL Immature Gran % (Auto) 0.3 % Neut % (Auto) 77.5 % Lymph % (Auto) 14.3 % [place] % (Auto) 7.9 % Eos % (Auto) 0.0 % Baso % (Auto) 0.0 % Immature Gran # (Auto) 0.01 (0.00-0.02) K/uL Neut # (Auto) 2.66 (1.4-6.5) K/uL Lymph # (Auto) 0.49 L (1.2-3.4) K/uL [place] # (Auto) 0.27 (0.11-0.59) K/uL Eos # (Auto) 0.00 (0-0.5) K/uL Baso # (Auto) 0.00 (0-0.2) K/uL Platelet Estimate Decreased (Normal) PT (9.0-12.0) Seconds INR (0.9-1.1) Sodium 143 (136-145) mmol/L Potassium 3.3 L (3.5-5.1) mmol/L Chloride 114 H (98-107) mmol/L Carbon Dioxide 23 (21-32) mmol/L Anion Gap 6.0 (3-11) BUN 10 D (7-18) mg/dl Creatinine 0.57 L (0.6-1.2) mg/dl Est Cr Clr Drug Dosing 66.4 ml/min Est GFR ( Amer) 104.4 Est GFR (Non-Af Amer) 90.0 BUN/Creatinine Ratio 17.8 (10-20) Glucose 114 H (70-99) mg/dl POC Lactic Acid Harsha (0.90-1.70) mmol/L Lactate (0.4-2.0) mmol/L Calcium 6.3 L (8.5-10.1) mg/dl Magnesium (1.8-2.4) mg/dl Total Bilirubin (0.2-1) mg/dl AST (15-37) U/L ALT (12-78) U/L Alkaline Phosphatase (45-117) U/L Troponin I (0-0.045) ng/ml Total Protein (6.4-8.2) gm/dl Albumin (3.4-5.0) gm/dl Globulin (2.5-4.0) gm/dl Albumin/Globulin Ratio (0.9-2) Lipase (73-393) U/L Urine Color Urine Appearance (Clear) Urine pH (4.5-7.5) Ur Specific [employer] (1.000-1.030) Urine Protein (Negative) Urine Glucose (UA) (Negative) Urine Ketones (Negative) Urine Blood (Negative) Urine Nitrite (Negative) Urine Bilirubin (Negative) Urine Urobilinogen (Negative) Ur Leukocyte Esterase (Negative) Urine WBC (Auto) (0-5) /hpf Urine RBC (Auto) (0-4) /hpf U Hyaline Cast (Auto) (0-5) /lpf U Epithel Cells (Auto) (0-5) /lpf Urine Bacteria (Auto) (Negative) Ur Renal Epithelial Cell Granular Casts (0) /lpf Stl C. diff Tox B Gene Pos C.diff Toxin B A (Neg) Stl C.difficile Tox A&B Negative (Negative) Influenza Type A (PCR) (Neg) Influenza Type B (PCR) (Neg) 09/28/18 Range/Units 05:29 WBC (4.8-10.8) K/uL RBC (4.2-5.4) M/uL Hgb (12.0-16.0) g/dL Hct (37-47) % MCV (80-100) fL MCH (25-34) pg MCHC (32-36) g/dL RDW Std Deviation (36.4-46.3) fL RDW Coeff of Matteo (11.5-14.5) % Plt Count (130-400) K/uL MPV (7.4-10.4) fL Immature Gran % (Auto) % Neut % (Auto) % Lymph % (Auto) % [place] % (Auto) % Eos % (Auto) % Baso % (Auto) % Immature Gran # (Auto) (0.00-0.02) K/uL Neut # (Auto) (1.4-6.5) K/uL Lymph # (Auto) (1.2-3.4) K/uL [place] # (Auto) (0.11-0.59) K/uL Eos # (Auto) (0-0.5) K/uL Baso # (Auto) (0-0.2) K/uL Platelet Estimate (Normal) PT (9.0-12.0) Seconds INR (0.9-1.1) Sodium (136-145) mmol/L Potassium (3.5-5.1) mmol/L Chloride (98-107) mmol/L Carbon Dioxide (21-32) mmol/L Anion Gap (3-11) BUN (7-18) mg/dl Creatinine (0.6-1.2) mg/dl Est Cr Clr Drug Dosing ml/min Est GFR ( Amer) Est GFR (Non-Af Amer) BUN/Creatinine Ratio (10-20) Glucose (70-99) mg/dl POC Lactic Acid Harsha (0.90-1.70) mmol/L Lactate (0.4-2.0) mmol/L Calcium (8.5-10.1) mg/dl Magnesium 2.0 (1.8-2.4) mg/dl Total Bilirubin (0.2-1) mg/dl AST (15-37) U/L ALT (12-78) U/L Alkaline Phosphatase (45-117) U/L Troponin I (0-0.045) ng/ml Total Protein (6.4-8.2) gm/dl Albumin (3.4-5.0) gm/dl Globulin (2.5-4.0) gm/dl Albumin/Globulin Ratio (0.9-2) Lipase (73-393) U/L Urine Color Urine Appearance (Clear) Urine pH (4.5-7.5) Ur Specific [employer] (1.000-1.030) Urine Protein (Negative) Urine Glucose (UA) (Negative) Urine Ketones (Negative) Urine Blood (Negative) Urine Nitrite (Negative) Urine Bilirubin (Negative) Urine Urobilinogen (Negative) Ur Leukocyte Esterase (Negative) Urine WBC (Auto) (0-5) /hpf Urine RBC (Auto) (0-4) /hpf U Hyaline Cast (Auto) (0-5) /lpf U Epithel Cells (Auto) (0-5) /lpf Urine Bacteria (Auto) (Negative) Ur Renal Epithelial Cell Granular Casts (0) /lpf Stl C. diff Tox B Gene (Neg) Stl C.difficile Tox A&B (Negative) Influenza Type A (PCR) (Neg) Influenza Type B (PCR) (Neg) Imaging Data Attestation: I personally reviewed and interpreted this imaging study as follows: My Impression: X-ray: I interpreted the following studies. Chest: A two view study of the chest was reviewed and was negative for cardiomegaly, focal infiltrate, effusion, pulmonary edema, or wide mediastinum. Radiologist's Impression: Radiology results as stated below per my review and the radiologist's interpretation: CT ABDOMEN & PELVIS With Contrast: Comparison: CT dated 03/24/2017. Fluid and air throughout small and large bowel with mild bowel wall thickening and enhancement. Findings are suggestive of enteritis/enterocolitis with diarrheal state which may be related to infectious or inflammatory etiologies. Recommend clinical correlation. No bowel obstruction, free fluid or free air. Colonic diverticula without evidence of acute diverticulitis. Incidental findings: Postsurgical changes of lower sping and pelvis. Pectus excavatum deformity of chest, incompletely imaged. Small fat-containing um bilical hernia. Mild atherosclerotic vascular disease. No abdominal aortic aneurysm. Small soft tissue calcifications in the buttocks. Radiologist: Beverly Kaplan MD ECG Data Attestation: I personally reviewed and interpreted this ECG as follows: Indication: vomiting Rate (beats per minute): 105 Rhythm: sinus tachycardia Findings: + other (No other acute changes), + LBBB, + ST elevation (V5 and V6) and + left axis deviation Comparison ECG Date: from (02/22/18) Change: the following changes noted (ST elevations in V5 and V6 worse compared to prior otherwise no significant changes) Blood Pressure Blood Pressure Findings: Elevated blood pressure Blood Pressure Disposition: further management by hospitalist ROVERTO Narrative Pt here markedly ill appearing with n/v/d. Pt was near syncopal and extremely weak for EMS. Initial hypoxia likely due to vasocontriction in extremities due to hypotension from volume losses. Pt started on IVF. Pt not hypoxic on arrival here. Pt continued on IVF here and not hypotensive, was tachycardic though and clinically dehydrated. Labs and imaging performed. CT didn't reveal any acute pathology. Repeat lactate after 2 L IVF already improving. While patient initially appeared septic, given rapid improvement and improved HR, stable BP, and reassuring imaging, I feel bacteremia/sepsis less likely. Pt more likely with food borne or viral gastroenteritis with severe dehydration from GI losses. Flecks of blood noted in emesis likely from irritation from frequent vomiting. I do not suspect more significant GI bleed as pt takes PPI daily. Pt given IV magnesium to help with repletion and started on IV flagyl given diarrhea as a precaution. C.diff testing 1/2 positive. No indication for vancomycin at this time. No recent travel or hospitalization. No evidence of acs or vascular pathology. BP stable in the ER, HR slowly improving with hydration, no fever. Pt still ill appearing after 2 L IVF and unable to tolerate po. Case discussed with hospitalist for additional evaluation and treatment. Cultures sent, blood and stool, and are pending. Impression & Plan Enteritis, GI bleed, Diarrhea, Vomiting, Acute dehydration, Hypomagnesemia Critical Care Time I have personally spent 35 minutes of critical care time in the direct management of this patient. This includes bedside care, interpretation of diagnostic studies, and testing, discussion with consultants, patient, and family members, and other required patient management activities. This 35 minutes is in excess of all separately billable procedures. Critical Care Time: Yes Total Critical Care Time: 35 Discharge Plan Visit Data *Final* Discharge Date/Time: 09/26/18 10:36 Chief Complaint: Vomiting Other Complaint: Diarrhea ED Provider: Rebekah Malloy Discharge Problem: Enteritis, GI bleed, Diarrhea, Vomiting, Acute dehydration, Hypomagnesemia Patient Disposition: Admitted As Inpatient Condition: Fair Discharge Instructions Interventions: ED Discharge Assessment Last Done: 09/26/18 10:36 Discharge Problem: GI bleed Qualifiers: GI bleed type/associated pathology: unspecified gastrointestinal hemorrhage type Qualified Code(s): K92.2 - Gastrointestinal hemorrhage, unspecified Diarrhea Qualifiers: Diarrhea type: unspecified type Qualified Code(s): R19.7 - Diarrhea, unspecifie d Vomiting Qualifiers: Vomiting type: unspecified Vomiting Intractability: non-intractable Nausea presence: with nausea Qualified Code(s): R11.2 - Nausea with vomiting, unspecified The scribe's documentation has been prepared under my direction and personally reviewed by me in its entirety. I confirm that the note above accurately reflects all work, treatment, procedures, and medical decision making performed by me.
[2018-09-26 07:42] LABS: Cdiff Antigen Positive; Cdiff Toxin A+B Negative (Negative)
--- NOTE | 2018-09-26 08:54 | History & Physical Report ---
Date of Service September 26, 2018 Assessment & Plan (1) Sepsis: -Secondary to gastroenteritis -Admit med tele -Patient tachycardic, tachypneic, with Lactic of 5.4 on admission, no hypotension -2L NSS provided in ED - will continue with NSS @ 100 ml/hr - BC pending - CXR negative for acute process - will order one more troponin given complaints of chest tightens and an EKG as well however likely non cardiac as she did mentioned it worsens with inspiration. Trops negative x2 (2) Enteritis: CT abd/pelvis: IMPRESSION: 1. No evidence of bowel obstruction. No evidence of free air 2. Fluid-filled large and small bowel loops with borderline wall thickening. The findings are consistent with a diarrheal state/enteritis. 3. Pectus excavatum 4. Diverticulosis. No evidence of acute diverticulitis. - C.diff positive for gene but not toxin - will provide IV flagyl as patient is significantly symptomatic with diarrheal illness although the enteritis is more likely secondary to a viral illness. Patient recently completed regimen with clindamycin - continue fluids as above - NPO except for sips/chips/meds - CBC, PRP am - cross allergy with Zofran - will order 12.5 mg IV phenergan q6h prn for nausea and vomiting - stool cultures (3) Hypertrophic cardiomyopathy: continue home metoprolol bid (4) Hyperlipidemia: continue statin (5) Hypertension: continue home metoprolol (6) Rheumatoid arthritis: hold weekly methotrexate for now Continue home prednisone 5 mg - can consider stress dosing if necessary but at present patient is not hypotensive (7) Hypomagnesemia: Mag 1.5 - 1 g IV given in ED - will give another gram (8) DVT prophylaxis: Enoxaprin, SCDs History of Present Illness Primary Care Provider: BINDU Ms. Carlton is accompanied by her . She is very ashen and tired on presentation. She reports she began to feel ill yesterday afternoon. The neighbor was sick but that is the only sick contact. She and her reside at the [facility] at [place]. Nausea, vomiting, diarrhea which she is incontinent with. She does have some pain in her stomach and her chest feels a bit tight which worsens with inspiration. Mild cough. Pmhx: patient has history of hypertrophic cardiomyopathy, frequent back surgeries, rheumatoid arthritis, Social: lives with at the [facility], non smoker, no alcohol Family hx: non contributory Allergies Allergy/AdvReac Type Severity Reaction Status Date / Time bee venom protein (honey bee) Allergy Intermediate BEE/WASP-NAUSEA Verified 04:36 AND DIZZINESS Penicillins Allergy Intermediate RASH (PER Verified 09/26/18 04:36 PT, WAS A LONG TIME AGO)AMOXICILLIN AND PCN amoxicillin [From Augmentin] Allergy Mild Unknown Verified 09/26/18 04:36 clavulanic acid Allergy Mild Unknown Verified 09/26/18 04:36 [From Augmentin] esomeprazole Allergy Mild NAUSEA Verified 09/26/18 04:36 VOMITING magnesium citrate Allergy Mild projectile Verified 09/26/18 04:36 vomitting antipyrine Allergy Unknown RASH AND Verified 09/26/18 04:36 BLISTERS benzocaine Allergy Unknown dental - Verified 09/26/18 04:36 tingling on tongue hydroxychloroquine Allergy Unknown UNKNOWN Verified 09/26/18 04:36 misoprostol Allergy Unknown UNKNOWN Verified 09/26/18 04:36 phenylephrine Allergy Unknown UNKNOWN Verified 09/26/18 04:36 pseudoephedrine Allergy Unknown UNKNOWN Verified 09/26/18 04:36 Serotonin 5HT-3 Antagonists Allergy Unknown UNKNOWN Verified 09/26/18 04:36 Sulfa (Sulfonamide Allergy Unknown UNKNOWN Verified 09/26/18 04:36 Antibiotics) citalopram AdvReac Mild GI UPSET Verified 09/26/18 04:36 clarithromycin AdvReac Mild GI UPSET Verified 09/26/18 04:36 Home Medications Home Medications Medication Instructions Recorded Confirmed Type acetaminophen [Tylenol Extra 1,000 mg PO TID 08/17/18 09/26/18 History Strength] artificial tears(hypromellose) 1 drp OPB QID PRN 08/17/18 09/26/18 History [Systane Gel] aspirin 81 mg PO QAM 08/17/18 09/26/18 History atorvastatin 10 mg PO PM 08/17/18 09/26/18 History calcium carbonate [Tums] 200 mg PO QID PRN 08/17/18 09/26/18 History calcium carbonate-vitamin D3 1 tab PO BID 08/17/18 09/26/18 History [Calcium 600 + D(3)] cetirizine [Zyrtec] 10 mg PO HS 08/17/18 09/26/18 History cholecalciferol (vitamin D3) 1,000 unit PO QAM 08/17/18 09/26/18 History [Vitamin D3] docusate sodium [Colace] 100 - 300 mg PO DAILY 08/17/18 09/26/18 History fluticasone 2 spray INTRANASAL QAM 08/17/18 09/26/18 History lactase [Lactaid] 3,000 unit PO AC PRN 08/17/18 09/26/18 History lorazepam 0.5 mg PO TID PRN 08/17/18 09/26/18 History magnesium hydroxide [Milk of 15 ml PO HS PRN 08/17/18 09/26/18 History Magnesia] melatonin 1 - 2 mg PO HS PRN 08/17/18 09/26/18 History methotrexate sodium 15 mg PO WK 08/17/18 09/26/18 History methylcellulose (with sugar) 1 tbsp PO DAILY 08/17/18 09/26/18 History [Citrucel (sucrose)] metoprolol succinate 50 mg PO BID 08/17/18 09/26/18 History pantoprazole 40 mg PO QAM 08/17/18 09/26/18 History prednisone 5 mg PO QAM 08/17/18 09/26/18 History sennosides-docusate sodium 2 tab PO DAILY PRN 08/17/18 09/26/18 History [Senna-S] ciprofloxacin-dexamethasone 4 drp OTIC (EAR) BID PRN 09/26/18 09/26/18 History [Ciprodex] denosumab [Prolia] 1 dose SUBCUT DIRECTED 09/26/18 09/26/18 History diphenhydramine HCl [Benadryl] 25 mg PO DIRECTED PRN 09/26/18 09/26/18 History epinephrine [EpiPen] 0.3 mg IM DIRECTED PRN 09/26/18 09/26/18 History folic acid 2 mg PO DAILY 09/26/18 09/26/18 History multivitamin with minerals 1 tab PO DAILY 09/26/18 09/26/18 History Past Med/Surg History Medical History Mitral valve prolapse (Chronic) IBS (irritable bowel syndrome) (Chronic) Diverticulitis (Chronic) Lumbar stenosis with neurogenic claudication (Chronic) Anxiety GERD (gastroesophageal reflux disease) HOCM (hypertrophic obstructive cardiomyopathy) Hiatal hernia Hyperlipidemia Hypertension Hypertrophic cardiomyopathy with LVOT and LEYDA Kidney stones passed on own Lactose intolerance Osteoporosis PONV (postoperative nausea and vomiting) Rheumatoid arthritis Surgical History History of appendectomy History of cataract surgery right and left History of endoscopic sinus surgery History of lumbar spinal fusion History of tonsillectomy and adenoidectomy Hx of mastoidectomy Social History Current Living Situation: Spouse and Personal Care Facility Other Information That Helps Us Care for You: No Feels Safe at Home: Yes Safety Concerns: Feels Safe At This Time Smoking Status: Never smoker Do You Dip or Chew Tobacco: No Second Hand Exposure: No Tobacco Cessation Education Requested by Patient: No Hx Alcohol Use: No Hx Substance Use: No Beliefs That Will Affect Care: None Preferred Language: Spanish Communication Ability: Effective Parachute Inspector Required: No Review of Systems All systems reviewed & are unremarkable except as noted in HPI & below Physical Exam 2 Vital Signs (Past 24 Hours): Last Vital Signs Temp 36.7 C 09/26/18 04:40 Pulse 118 H 09/26/18 08:37 Resp 24 09/26/18 08:37 BP 155/74 H 09/26/18 08:37 Pulse Ox 94 09/26/18 08:37 Physical Exam: General: ill appearing Eyes: normal inspection, PERLL Respiratory: chest non tender, left lower lobe crackles, all other gooden clear to auscultation, no respiratory distress, no accessory muscle use Cardiac: regular rate and rhythm, no rub or gallop, holosystolic murmur, no edema, no jvd GI/: active bowel sounds, abdomen tender to palpation, soft, non distended Extremities: normal range of motion, normal strength, non tender Neuro:oriented x 3, moves all extremities Psych:drowsy, normal mood and affect Skin: ashen color, dry Results & Data Laboratory Results Abnormal lab results 09/26/18 09/26/18 09/26/18 Range/Units 04:30 04:30 04:43 WBC 14.29 H (4.8-10.8) K/uL RDW Std Deviation 50.2 H (36.4-46.3) fL RDW Coeff of Matteo 15.1 H (11.5-14.5) % MPV 10.8 H (7.4-10.4) fL Immature Gran # (Auto) 0.04 H (0.00-0.02) K/uL Neut # (Auto) 13.12 H (1.4-6.5) K/uL Lymph # (Auto) 0.45 L (1.2-3.4) K/uL [place] # (Auto) 0.65 H (0.11-0.59) K/uL Anion Gap 12.0 H (3-11) Glucose 177 H (70-99) mg/dl POC Lactic Acid Harsha 5.47 H (0.90-1.70) mmol/L Magnesium 1.5 L (1.8-2.4) mg/dl Urine Blood (Negative) Urine RBC (Auto) (0-4) /hpf U Epithel Cells (Auto) (0-5) /lpf Granular Casts (0) /lpf Stl C. diff Tox B Gene (Neg) 09/26/18 09/26/18 09/26/18 Range/Units 04:45 05:52 07:11 WBC (4.8-10.8) K/uL RDW Std Deviation (36.4-46.3) fL RDW Coeff of Matteo (11.5-14.5) % MPV (7.4-10.4) fL Immature Gran # (Auto) (0.00-0.02) K/uL Neut # (Auto) (1.4-6.5) K/uL Lymph # (Auto) (1.2-3.4) K/uL [place] # (Auto) (0.11-0.59) K/uL Anion Gap (3-11) Glucose (70-99) mg/dl POC Lactic Acid Harsha 2.29 H (0.90-1.70) mmol/L Magnesium (1.8-2.4) mg/dl Urine Blood 2+ H (Negative) Urine RBC (Auto) 10-30 H (0-4) /hpf U Epithel Cells (Auto) >30 H (0-5) /lpf Granular Casts 1-5 H (0) /lpf Stl C. diff Tox B Gene Pos C.diff Toxin B A (Neg) Code Status & VTE Plan Code Status full code Supervising Physician Co-Signing Physician Notes Patient seen and examined with Kamilah OZUNA. I agree with her HPI, history, ROS, physical exam and A/P. Case was discussed with her as well as the kelly points in treatment. I personally reviewed the lab work and imaging and other diagnostic studies. patient with acute viral illness causing gastroenteritis. severe dehydration, weakness, diarrhea, nausea and vomiting. rapid onset of one day's time. initial lactic acid elevated at 5 but down to 2 with fluids patient seen again on the floor after RN called to say that BP was in the 80's systolic and HR 120s on the monitor ordered 1L NSS bolus, stress dose Hydrocortisone 50mg q8 lactic acid 2.8, troponin 0.05, Cr normal, WBC normal, EKG with LBBB (chronic) - Sepsis due to acute gastroenteritis: supporive care with fluids - Acute adrenal insufficiency: due to taking Prednisone 5mg, give stress dose steroids - Lactic acidosis: due to hypotension and hypovolemia, improved initially, back up slightly, treat with aggressive hydration - Gastroenteritis: continue Flagyl IV, C diff testing positive for gene but negative for Toxin, no active infection at this time - Chest pain: no evidence of ACS
[2018-09-26] MEDS ORDERED: ARTIFICIAL TEARS OPB PRN (10:55)
[2018-09-26] MEDS ORDERED: ACETAMINOPHEN 325 MG TAB PO PRN (10:55)
[2018-09-26] MEDS ORDERED: DOCUSATE SODIUM/SENNA 50/8.6MG TAB PO PRN (10:55)
[2018-09-26] MEDS ORDERED: MAGNESIUM HYDROXIDE SUSP 30 ML UDC PO PRN (10:55)
[2018-09-26 12:13] LABS: INR 1.2 (0.9-1.1); Prothrombin Time 12.4 Seconds (9.0-12.0)
[2018-09-26] MEDS: SODIUM CHLORIDE 0.9% 1000ML 1,000 ML IV SCH (12:35)
[2018-09-26] MEDS: METOPROLOL SUCC 50MG EXT REL TAB PO SCH ×2 (12:35→21:15)
[2018-09-26] MEDS: predniSONE 5 MG TAB PO SCH (12:35)
[2018-09-26] MEDS: ENOXAPARIN INJ 30 MG/0.3 ML SYR SQ SCH (14:01)
[2018-09-26] MEDS: ACETAMINOPHEN 500 MG TAB PO SCH ×2 (14:02→21:20)
[2018-09-26] MEDS ORDERED: HYDROCORTISONE SOD SUCCINATE 100 MG/2 ML VIAL IV STA (15:29)
[2018-09-26] MEDS ORDERED: HYDROCORTISONE SOD 50 MG in SYRINGE 0 ML IV STA (15:39)
[2018-09-26 16:06] LABS: Hemoglobin 12.4 g/dL (12.0-16.0); Lymphocytes % (auto) 4.3 %; Mean Corpuscular Hgb Conc 32.6 g/dL (32-36); Mean Corpuscular Volume 89.8 fL (80-100); Mean Platelet Volume 10.5 fL (7.4-10.4); Monocytes # (auto) 0.18 K/uL (0.11-0.59); Monocytes % (auto) 3.9 %; Neutrophils # (auto) 4.27 K/uL (1.4-6.5); Neutrophils % (auto) 91.8 %; Platelet Count 150 K/uL (130-400); RDW Coefficient of Variation 15.2 % (11.5-14.5); RDW Standard Deviation 49.6 fL (36.4-46.3); Red Blood Count 4.23 M/uL (4.2-5.4); White Blood Count 4.65 K/uL (4.8-10.8)
[2018-09-26 16:12] LABS: Albumin Level 2.8 gm/dl (3.4-5.0); BUN Creatinine Ratio 16.6 (10-20); Calcium 7.7 mg/dl (8.5-10.1); Creatinine Clr Calc Pharmacy 51.9 ml/min; Est GFR (African American) 92.7; Potassium 3.8 mmol/L (3.5-5.1)
[2018-09-26 16:42] LABS: Albumin Globulin Ratio 1.1 (0.9-2); Bilirubin,Total 0.6 mg/dl (0.2-1); Globulin 2.5 gm/dl (2.5-4.0); Total Protein 5.3 gm/dl (6.4-8.2); Troponin I 0.055 ng/ml (0-0.045)
[2018-09-26] MEDS: metroNIDAZOLE 500 MG/100 ML BAG IV SCH ×2 (17:02→23:55)
[2018-09-26] MEDS: CETIRIZINE HCL 10 MG TABLET PO SCH (21:18)
[2018-09-26] MEDS: ATORVASTATIN 10 MG TAB PO SCH (21:18)
[2018-09-26] MEDS: CALCIUM 600MG + VIT D 400 IU TAB PO SCH (21:18)
[2018-09-26] MEDS: HYDROCORTISONE SOD 50 MG in SYRINGE 0 ML IV SCH (23:58)
[2018-09-27] MEDS: SODIUM CHLORIDE 0.9% 1000ML 1,000 ML IV SCH ×2 (01:38→15:09)
[2018-09-27 05:58] LABS: Hematocrit (blood only) 33.3 % (37-47); Hemoglobin 10.7 g/dL (12.0-16.0); Immature Granulocytes # (auto) 0.01 K/uL (0.00-0.02); Immature Granulocytes % (auto) 0.3 %; Lymphocytes # (auto) 0.35 K/uL (1.2-3.4); Lymphocytes % (auto) 11.7 %; Mean Corpuscular Hgb Conc 32.1 g/dL (32-36); Mean Platelet Volume 11.3 fL (7.4-10.4); Monocytes # (auto) 0.19 K/uL (0.11-0.59); Monocytes % (auto) 6.4 %; Neutrophils # (auto) 2.43 K/uL (1.4-6.5); Neutrophils % (auto) 81.6 %; Platelet Count 108 K/uL (130-400); RDW Coefficient of Variation 15.3 % (11.5-14.5); RDW Standard Deviation 51.3 fL (36.4-46.3); Red Blood Count 3.62 M/uL (4.2-5.4); White Blood Count 2.98 K/uL (4.8-10.8)
[2018-09-27 06:35] LABS: BUN Creatinine Ratio 24.3 (10-20); Calcium 6.9 mg/dl (8.5-10.1); Creatinine Clr Calc Pharmacy 58.2 ml/min; Est GFR (Non-African American) 86.2; Potassium 3.6 mmol/L (3.5-5.1)
[2018-09-27] MEDS ORDERED: PANTOprazole 40 MG TAB PO SCH (09:00)
[2018-09-27] MEDS: CHOLECALCIFEROL 1,000 UNITS TAB PO SCH (09:16)
[2018-09-27] MEDS: CALCIUM 600MG + VIT D 400 IU TAB PO SCH ×2 (09:16→21:25)
[2018-09-27] MEDS: predniSONE 5 MG TAB PO SCH (09:16)
[2018-09-27] MEDS: CEROVITE ADV FORMULA TAB PO SCH (09:16)
[2018-09-27] MEDS: METOPROLOL SUCC 50MG EXT REL TAB PO SCH ×2 (09:16→21:24)
[2018-09-27] MEDS: ASPIRIN 81 MG ECTAB PO SCH (09:16)
[2018-09-27] MEDS: FOLIC ACID 1 MG TAB PO SCH (09:17)
[2018-09-27] MEDS: FLUTICASONE PROPIONATE NA SPR 16 GM BTL SCH (09:19)
[2018-09-27] MEDS: ACETAMINOPHEN 500 MG TAB PO SCH ×3 (09:20→21:25)
[2018-09-27] MEDS: PROMETHAZINE HCL 12.5 MG in SODIUM CHLORIDE 0.9% 50 ML IV PRN ×2 (09:27→20:07)
[2018-09-27] MEDS: HYDROCORTISONE SOD 50 MG in SYRINGE 0 ML IV SCH ×3 (10:01→23:32)
[2018-09-27] MEDS: metroNIDAZOLE 500 MG/100 ML BAG IV SCH ×2 (10:03→17:11)
[2018-09-27] MEDS: ENOXAPARIN INJ 30 MG/0.3 ML SYR SQ SCH (10:55)
--- NOTE | 2018-09-27 13:00 | Hospitalist Progress Note ---
Date of Service September 27, 2018 Assessment & Plan (1) Sepsis: -Secondary to gastroenteritis -on admission patient tachycardic, tachypneic, with Lactic of 5.4 on admission and trended down, no hypotension -2L NSS provided in ED - continue with NSS @ 100 ml/hr - BC pending - CXR negative for acute process - Troponin peaked at 0.055 (2) Enteritis: CT abd/pelvis: IMPRESSION: 1. No evidence of bowel obstruction. No evidence of free air 2. Fluid-filled large and small bowel loops with borderline wall thickening. The findings are consistent with a diarrheal state/enteritis. 3. Pectus excavatum 4. Diverticulosis. No evidence of acute diverticulitis. - C.diff positive for gene but not toxin - will provide IV flagyl as patient is significantly symptomatic with diarrheal illness although the enteritis is more likely secondary to a viral illness. Patient recently completed regimen with clindamycin - continue fluids as above - start clear liquids - continue phenergan q6h prn for nausea and vomiting - stool cultures (3) Hypertrophic cardiomyopathy: continue home metoprolol bid (4) Hyperlipidemia: continue statin (5) Hypertension: continue home metoprolol (6) Rheumatoid arthritis: hold weekly methotrexate for now stressed dosed with hydrocortisone for hypotension and then resumed home prednisone. (7) Hypomagnesemia: Mag 1.5 - replaced with 2g (8) DVT prophylaxis: Enoxaprin, SCDs Supervising Physician Co-Signing Physician Notes Patient seen and examined with Kamilah OZUNA. I agree with her progress note with updates below. Patient feeling a little better today. Discussed the results of C diff gene positive but toxin negative with micro lab, they suggested repeating test if C diff still suspected. 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 Carlton's color is better than last night. She is not vomiting though still experiencing some mild nausea. The diarrhea has slowed but she is still having some liquid stools Review of Systems All systems reviewed & are unremarkable except as noted in HPI & below Physical Exam 2 Vital Signs (Past 24 Hours): Last Vital Signs Temp 36.8 C 09/27/18 11:31 Pulse 100 H 09/27/18 11:31 Resp 18 09/27/18 11:31 BP 118/64 09/27/18 11:31 Pulse Ox 95 09/27/18 11:31 Physical Exam: General: no distress Eyes: normal inspection, PERLL Respiratory: chest non tender, clear to auscultation, normal breath sounds, no respiratory distress, no accessory muscle use Cardiac: regular rate and rhythm, no rub or gallop, no murmur, no edema, no jvd GI/: active bowel sounds, no abd pain or tenderness, soft, non distended Extremities: normal range of motion, normal strength, non tender Neuro/Psych: alert and oriented x 3, normal mood and affect Skin: normal color, dry Results & Data Laboratory Results Abnormal lab results 09/26/18 09/26/18 09/26/18 Range/Units 15:45 15:45 15:45 WBC 4.65 L D (4.8-10.8) K/uL RBC (4.2-5.4) M/uL Hgb (12.0-16.0) g/dL Hct (37-47) % RDW Std Deviation 49.6 H (36.4-46.3) fL RDW Coeff of Matteo 15.2 H (11.5-14.5) % Plt Count (130-400) K/uL MPV 10.5 H (7.4-10.4) fL Lymph # (Auto) 0.20 L (1.2-3.4) K/uL Chloride 109 H (98-107) mmol/L BUN/Creatinine Ratio (10-20) Glucose 140 H (70-99) mg/dl Lactate 2.8 H* (0.4-2.0) mmol/L Calcium 7.7 L D (8.5-10.1) mg/dl Troponin I 0.055 H* (0-0.045) ng/ml Total Protein 5.3 L D (6.4-8.2) gm/dl Albumin 2.8 L (3.4-5.0) gm/dl 09/27/18 09/27/18 Range/Units 05:34 05:34 WBC 2.98 L (4.8-10.8) K/uL RBC 3.62 L (4.2-5.4) M/uL Hgb 10.7 L (12.0-16.0) g/dL Hct 33.3 L (37-47) % RDW Std Deviation 51.3 H (36.4-46.3) fL RDW Coeff of Matteo 15.3 H (11.5-14.5) % Plt Count 108 L (130-400) K/uL MPV 11.3 H (7.4-10.4) fL Lymph # (Auto) 0.35 L (1.2-3.4) K/uL Chloride 114 H (98-107) mmol/L BUN/Creatinine Ratio 24.3 H (10-20) Glucose 117 H (70-99) mg/dl Lactate (0.4-2.0) mmol/L Calcium 6.9 L (8.5-10.1) mg/dl Troponin I (0-0.045) ng/ml Total Protein (6.4-8.2) gm/dl Albumin (3.4-5.0) gm/dl
[2018-09-27 17:51] LABS: Cdiff Antigen Positive; Cdiff Toxin A+B Negative (Negative)
[2018-09-27] MEDS ORDERED: RASPBERRY SYRUP 5 ML UDP PO SCH (18:00)
[2018-09-27] MEDS ORDERED: VANCOMYCIN HCL 125 MG/2.5ML SOLN PO SCH (18:00)
[2018-09-27] MEDS ORDERED: Nursing to Pharmacy Communication ONE (20:59)
[2018-09-27] MEDS: ATORVASTATIN 10 MG TAB PO SCH (21:24)
[2018-09-27] MEDS: CETIRIZINE HCL 10 MG TABLET PO SCH (21:24)
[2018-09-27] MEDS ORDERED: LOPERAMIDE HCL 2 MG CAP PO PRN (22:30)
[2018-09-28] MEDS: SODIUM CHLORIDE 0.9% 1000ML 1,000 ML IV SCH (02:30)
[2018-09-28 06:06] LABS: Hematocrit (blood only) 30.9 % (37-47); Hemoglobin 9.8 g/dL (12.0-16.0); Mean Corpuscular Hgb Conc 31.7 g/dL (32-36); Mean Corpuscular Volume 92.5 fL (80-100); RDW Coefficient of Variation 15.2 % (11.5-14.5); RDW Standard Deviation 51.6 fL (36.4-46.3); Red Blood Count 3.34 M/uL (4.2-5.4); White Blood Count 3.43 K/uL (4.8-10.8)
[2018-09-28 06:41] LABS: BUN Creatinine Ratio 17.8 (10-20); Calcium 6.3 mg/dl (8.5-10.1); Creatinine Clr Calc Pharmacy 66.4 ml/min; Est GFR (African American) 104.4; Potassium 3.3 mmol/L (3.5-5.1)
[2018-09-28 07:01] LABS: Immature Granulocytes # (auto) 0.01 K/uL (0.00-0.02); Immature Granulocytes % (auto) 0.3 %; Lymphocytes # (auto) 0.49 K/uL (1.2-3.4); Lymphocytes % (auto) 14.3 %; Mean Platelet Volume 10.4 fL (7.4-10.4); Monocytes # (auto) 0.27 K/uL (0.11-0.59); Monocytes % (auto) 7.9 %; Neutrophils # (auto) 2.66 K/uL (1.4-6.5); Neutrophils % (auto) 77.5 %; Platelet Count 70 K/uL (130-400); Platelet Estimate Decreased (Normal)
[2018-09-28] MEDS ORDERED: POTASSIUM CHLORIDE 20 MEQ TABCR PO STA (07:50)
[2018-09-28] MEDS: FLUTICASONE PROPIONATE NA SPR 16 GM BTL SCH (08:09)
[2018-09-28] MEDS: ASPIRIN 81 MG ECTAB PO SCH (08:11)
[2018-09-28] MEDS: FOLIC ACID 1 MG TAB PO SCH (08:11)
[2018-09-28] MEDS: CALCIUM 600MG + VIT D 400 IU TAB PO SCH ×2 (08:11→21:20)
[2018-09-28] MEDS: CEROVITE ADV FORMULA TAB PO SCH (08:13)
[2018-09-28] MEDS: METOPROLOL SUCC 50MG EXT REL TAB PO SCH ×2 (08:14→21:20)
[2018-09-28] MEDS: ACETAMINOPHEN 500 MG TAB PO SCH ×3 (08:14→21:19)
[2018-09-28] MEDS: CHOLECALCIFEROL 1,000 UNITS TAB PO SCH (08:15)
[2018-09-28] MEDS: predniSONE 5 MG TAB PO SCH (08:41)
[2018-09-28] MEDS: POTASSIUM CHLORIDE 20 MEQ in LACTATED RINGER'S 1,000 ML IV SCH ×2 (08:41→21:18)
[2018-09-28] MEDS: PROMETHAZINE HCL 12.5 MG in SODIUM CHLORIDE 0.9% 50 ML IV PRN (10:17)
[2018-09-28] MEDS: ENOXAPARIN INJ 30 MG/0.3 ML SYR SQ SCH (11:04)
--- NOTE | 2018-09-28 14:46 | Hospitalist Progress Note ---
Date of Service September 28, 2018 Assessment & Plan (1) Sepsis: - Secondary to viral gastroenteritis; was tachycardic, tachypneic with lactate of 5.4 on admission. - Continue IV fluids at 80 cc/hr. - CXR was negative; CT A/P +enterititis as noted below. - Blood cultures negative. (2) Enteritis: - CT A/P showed enteritis/diarrheal state. - C. diff gene +, toxin was negative. Stool cultures negative. - Started Flagyl IV due to symptoms; recently did complete course of Clindamycin. - CLD as tolerated; on IVFs at 80 cc/hr. - Phenergan prn nausea/vomiting (allergy to Zofran) (3) Hypertrophic cardiomyopathy: - Continue Metoprolol 50 mg BID. (4) Hyperlipidemia: - Continue statin and aspirin as prescribed. (5) Hypertension: - Continue Metoprolol as prescribed. (6) Rheumatoid arthritis: - Hold MTX for now. - Received stress dose steroids; resumed Prednisone 5 mg qAM. (7) Anemia: - Hemoglobin dropped to 9.8, likely dilutional. - Will monitor CBC qAM, consider further work up if levels continue to trend down. (8) Electrolyte abnormality: - K level 3.3 -- ordered K 40 mEq PO; added KCl to IV fluids. - Mag level 2.0 - no replacement required. - Chl elevated to 114 -- likely related to NS, changed IV fluids to LR at 80 cc/hr. (9) DVT prophylaxis: - Hold Lovenox due to acute drop in platelets; SCDs. Dispo: PT/OT ordered -- discharge pending evaluation and overall clinical improvement. Will need voiding trial prior to discharge. Supervising Physician Co-Signing Physician Notes PA Supervision Note: I did not personally see or examine the patient today, but I verified all kelly points of JENNY Gallardo's assessment and plan with the following exceptions/additions: None Subjective Pt. was improved overall today. She has a BM with the bed claire today, does not know if diarrhea was present. Has mild nausea, denies ongoing vomiting. PO intake is poor. Has estes in place, plan to remove over next 24 hours. Is not ambulating often -- ordered PT/OT. Review of Systems All systems reviewed & are unremarkable except as noted in HPI & below Constitutional: + fatigue, + weakness and + anorexia; no fever and no chills Respiratory: no cough and no dyspnea Cardiovascular: no chest pain, no palpitations and no edema Gastrointestinal: + abdominal pain and + nausea; no vomiting, no constipation and no diarrhea/loose stools Genitourinary (Female): no difficulty urinating Musculoskeletal: no joint pain Allergy / Immunological: no rash Physical Exam Vital Signs (Past 24 Hours): Last Vital Signs Temp 36.9 C 09/28/18 11:27 Pulse 66 09/28/18 11:27 Resp 18 09/28/18 11:27 BP 156/71 H 09/28/18 11:27 Pulse Ox 94 09/28/18 11:27 Physical Exam: General: Resting comfortably in no apparent distress; A&OX3 HEENT: NC/AT; PERRLA with EOMI; [place] conjunctiva, MMM. Neck: Supple and nontender Cardiac: RRR w/o murmurs, gallops or rubs Lungs: CTA bilaterally; No rhonchi, wheezing, or rales Abdomen: Bowel normoactive X 4; Nontender to palpation Extremities: Warm. No edema present Neuro: No focal weakness Skin: No rash Results & Data Laboratory Results 09/28/18 09/28/18 09/28/18 Range/Units 05:29 05:29 05:29 WBC 3.43 L (4.8-10.8) K/uL RBC 3.34 L (4.2-5.4) M/uL Hgb 9.8 L (12.0-16.0) g/dL Hct 30.9 L (37-47) % MCV 92.5 (80-100) fL MCH 29.3 (25-34) pg MCHC 31.7 L (32-36) g/dL RDW Std Deviation 51.6 H (36.4-46.3) fL RDW Coeff of Matteo 15.2 H (11.5-14.5) % Plt Count 70 L (130-400) K/uL MPV 10.4 (7.4-10.4) fL Immature Gran % (Auto) 0.3 % Neut % (Auto) 77.5 % Lymph % (Auto) 14.3 % [place] % (Auto) 7.9 % Eos % (Auto) 0.0 % Baso % (Auto) 0.0 % Immature Gran # (Auto) 0.01 (0.00-0.02) K/uL Neut # (Auto) 2.66 (1.4-6.5) K/uL Lymph # (Auto) 0.49 L (1.2-3.4) K/uL [place] # (Auto) 0.27 (0.11-0.59) K/uL Eos # (Auto) 0.00 (0-0.5) K/uL Baso # (Auto) 0.00 (0-0.2) K/uL Platelet Estimate Decreased (Normal) Sodium 143 (136-145) mmol/L Potassium 3.3 L (3.5-5.1) mmol/L Chloride 114 H (98-107) mmol/L Carbon Dioxide 23 (21-32) mmol/L Anion Gap 6.0 (3-11) BUN 10 D (7-18) mg/dl Creatinine 0.57 L (0.6-1.2) mg/dl Est Cr Clr Drug Dosing 66.4 ml/min Est GFR ( Amer) 104.4 Est GFR (Non-Af Amer) 90.0 BUN/Creatinine Ratio 17.8 (10-20) Glucose 114 H (70-99) mg/dl Calcium 6.3 L (8.5-10.1) mg/dl Magnesium 2.0 (1.8-2.4) mg/dl Stl C. diff Tox B Gene (Neg) Stl C.difficile Tox A&B (Negative) 09/27/18 Range/Units 15:56 WBC (4.8-10.8) K/uL RBC (4.2-5.4) M/uL Hgb (12.0-16.0) g/dL Hct (37-47) % MCV (80-100) fL MCH (25-34) pg MCHC (32-36) g/dL RDW Std Deviation (36.4-46.3) fL RDW Coeff of Matteo (11.5-14.5) % Plt Count (130-400) K/uL MPV (7.4-10.4) fL Immature Gran % (Auto) % Neut % (Auto) % Lymph % (Auto) % [place] % (Auto) % Eos % (Auto) % Baso % (Auto) % Immature Gran # (Auto) (0.00-0.02) K/uL Neut # (Auto) (1.4-6.5) K/uL Lymph # (Auto) (1.2-3.4) K/uL [place] # (Auto) (0.11-0.59) K/uL Eos # (Auto) (0-0.5) K/uL Baso # (Auto) (0-0.2) K/uL Platelet Estimate (Normal) Sodium (136-145) mmol/L Potassium (3.5-5.1) mmol/L Chloride (98-107) mmol/L Carbon Dioxide (21-32) mmol/L Anion Gap (3-11) BUN (7-18) mg/dl Creatinine (0.6-1.2) mg/dl Est Cr Clr Drug Dosing ml/min Est GFR ( Amer) Est GFR (Non-Af Amer) BUN/Creatinine Ratio (10-20) Glucose (70-99) mg/dl Calcium (8.5-10.1) mg/dl Magnesium (1.8-2.4) mg/dl Stl C. diff Tox B Gene Pos C.diff Toxin B A (Neg) Stl C.difficile Tox A&B Negative (Negative)
[2018-09-28] MEDS: CETIRIZINE HCL 10 MG TABLET PO SCH (21:19)
[2018-09-28] MEDS: ATORVASTATIN 10 MG TAB PO SCH (21:20)
[2018-09-28] MEDS: LORazepam 0.5 MG TAB PO PRN (21:28)
[2018-09-28] MEDS: CALCIUM CARBONATE 500 MG CHEWABLE TAB PO PRN (21:28)
[2018-09-29 06:26] LABS: Hematocrit (blood only) 33.6 % (37-47); Hemoglobin 10.9 g/dL (12.0-16.0); Mean Corpuscular Hgb Conc 32.4 g/dL (32-36); Mean Corpuscular Volume 90.3 fL (80-100); Mean Platelet Volume 10.8 fL (7.4-10.4); Platelet Count 97 K/uL (130-400); RDW Coefficient of Variation 14.9 % (11.5-14.5); RDW Standard Deviation 48.5 fL (36.4-46.3); Red Blood Count 3.72 M/uL (4.2-5.4); White Blood Count 9.13 K/uL (4.8-10.8)
[2018-09-29 07:09] LABS: BUN Creatinine Ratio 11.2 (10-20); Creatinine Clr Calc Pharmacy 92.3 ml/min; Est GFR (African American) 116.3; Est GFR (Non-African American) 100.4; Magnesium 1.8 mg/dl (1.8-2.4)
[2018-09-29] MEDS ORDERED: POTASSIUM CHLORIDE 20 MEQ TABCR PO ONE (08:15)
[2018-09-29] MEDS ORDERED: POTASSIUM CHLORIDE 40 MEQ in LACTATED RINGER'S 1,000 ML IV SCH (08:30)
[2018-09-29] MEDS ORDERED: METOCLOPRAMIDE HCL INJ 5 MG/ML 2 ML VIAL IV PRN (08:59)
[2018-09-29] MEDS: PROMETHAZINE HCL 12.5 MG in SODIUM CHLORIDE 0.9% 50 ML IV PRN (09:11)
[2018-09-29] MEDS: FLUTICASONE PROPIONATE NA SPR 16 GM BTL SCH (09:11)
[2018-09-29] MEDS: CALCIUM 600MG + VIT D 400 IU TAB PO SCH ×2 (10:33→22:19)
[2018-09-29] MEDS: POTASSIUM CHLORIDE / WTR 10 MEQ/100 ML PLCT IV SCH ×4 (10:33→13:02)
[2018-09-29] MEDS: CHOLECALCIFEROL 1,000 UNITS TAB PO SCH (10:33)
[2018-09-29] MEDS: FOLIC ACID 1 MG TAB PO SCH (10:36)
[2018-09-29] MEDS: ACETAMINOPHEN 500 MG TAB PO SCH ×4 (10:37→22:20)
[2018-09-29] MEDS: METOPROLOL SUCC 50MG EXT REL TAB PO SCH ×2 (10:37→22:20)
[2018-09-29] MEDS: CEROVITE ADV FORMULA TAB PO SCH (10:37)
[2018-09-29] MEDS: predniSONE 5 MG TAB PO SCH (10:38)
[2018-09-29] MEDS: ASPIRIN 81 MG ECTAB PO SCH (10:39)
--- NOTE | 2018-09-29 12:48 | Hospitalist Progress Note ---
Date of Service September 29, 2018 Assessment & Plan (1) Sepsis: - Secondary to viral gastroenteritis; was tachycardic, tachypneic with lactate of 5.4 on admission. - Continue IV fluids at 80 cc/hr. - CXR was negative; CT A/P +enterititis as noted below. - Blood cultures negative. - Resume stress dose steroids with Hydrocortisone 50 mg IV q8hr; holding home Pred. (2) Enteritis: - CT A/P showed enteritis/diarrheal state. - C. diff gene +, toxin was negative. Stool cultures negative. - Received IV Flagyl on 09/26, hold further doses; recently did complete course of Clindamycin. - CLD as tolerated - PO intake is very poor; on IVFs at 80 cc/hr. - Phenergan, Reglan and Zofran prn N/V. (3) Chronic diastolic heart failure: - Echo showed EF 60-65%, grade III diastolic heart failure. - Currently receiving IV fluids -- caution with fluid overload. - Monitor I/Os and daily weights. - Continue Metoprolol as prescribed. (4) Elevated troponin: - Trop peaked at 0.055 on 09/26/18 then trended down. - Developed SVT followed by ST depression on monitor this morning; repeat Troponin is 0.178. - Trend troponin q6hr -- level at 14:00 was 0.149. - EKG today was negative for acute changes compared to prior studies. - TTE results as noted above. - Low threshold for cardiology consult due to elevated trops, new SVT & atypical symptoms. (5) SVT (supraventricular tachycardia): - 2 minute run of SVT this morning, now resolved. - May be related to electrolyte depletion vs. dehydration vs. other. - Maintain K>4 and Mag >2, replacement as noted below. 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 (6) Heart valve disease: - Echo showed severe mitral annular calcification, mild mitral regurg, mild mitral stenosis. (7) Hypertrophic cardiomyopathy: - Continue Metoprolol 50 mg BID. (8) Hyperlipidemia: - Continue statin and aspirin as prescribed. (9) Hypertension: - Continue Metoprolol as prescribed. (10) Rheumatoid arthritis: - Hold MTX for now. - Hold home Pred 5 mg daily; resume stress dose steroids with Hydrocortisone 50 mg IV q8hr. (11) Anemia: - Hemoglobin now trending back up, was likely dilutional. - Will monitor CBC qAM. (12) Electrolyte abnormality: - K level 3.0 - ordered KCl 10 mEq IV x 3 doses; IV fluids with KCl 20 mEq. - Mag level 1.8 - ordered mag sulfate 2 gm IV. - Corrected calcium level was low; ordered calcium gluconate 1 gm IV. - Repeat BMP this afternoon showed improvement in levels; will monitor qAM. - Elevated chloride levels are improved after transitioning to LR solution. (13) DVT prophylaxis: - Hold Lovenox due to thrombocytopenia; SCDs. Dispo: Discharge pending cardiac work up and improvement in N/V. Supervising Physician Co-Signing Physician Notes Attending Attestation - Chart reviewed in detail, and care plan d/w JENNY Maria. I agree w/ the kelly components of her documentation. Pt with ongoing GI symptoms from gastroenteritis - statistically likely to be viral in etiology. Bacterial w/u thus far neg. Complicated by low potassium - replacing. SVT - threshold for such may have been precipitated by the low K. Agree w/ echo. Cont telemetry. Cont stress dose steroids. Dale Montero MD Subjective Pt. was nauseous this morning, unresponsive to Phenergan IV. Received Reglan IV with some improvement. She complains of ongoing nausea but denies vomiting. Has been having diarrhea, uses bedpan, per bedside nurse. Had 2 minute run of SVT this morning with HR increased to 170's, now resolved. Concern for ST depression on monitor as well following episode. Trending trops, first level was elevated. Will closely monitor over next 24 hours. Review of Systems All systems reviewed & are unremarkable except as noted in HPI & below Constitutional: + fatigue, + weakness and + anorexia; no fever and no chills Respiratory: no cough and no dyspnea Cardiovascular: no chest pain, no chest pain at rest, no chest pain with activity, no radiating jaw, neck or arm pain, no palpitations, no lightheadedness, no syncope and no edema Gastrointestinal: + nausea and + diarrhea/loose stools; no abdominal pain, no vomiting and no constipation Genitourinary (Female): no difficulty urinating Musculoskeletal: no joint pain Allergy / Immunological: no rash Physical Exam Vital Signs (Past 24 Hours): Last Vital Signs Temp 37 C 09/29/18 12:02 Pulse 75 09/29/18 12:02 Resp 18 09/29/18 12:02 BP 148/75 H 09/29/18 12:02 Pulse Ox 92 09/29/18 12:02 Physical Exam: General: Resting comfortably in no apparent distress; A&OX3 HEENT: NC/AT; PERRLA with EOMI; [place] conjunctiva, MMM. Neck: Supple and nontender Cardiac: RRR Lungs: CTA bilaterally Abdomen: Bowel normoactive X 4; Nontender to palpation Extremities: Warm. No edema present Neuro: No focal weakness Skin: No rash Results & Data Laboratory Results 09/29/18 09/29/18 09/29/18 Range/Units 11:09 05:44 05:44 WBC 9.13 (4.8-10.8) K/uL RBC 3.72 L (4.2-5.4) M/uL Hgb 10.9 L (12.0-16.0) g/dL Hct 33.6 L (37-47) % MCV 90.3 (80-100) fL MCH 29.3 (25-34) pg MCHC 32.4 (32-36) g/dL RDW Std Deviation 48.5 H (36.4-46.3) fL RDW Coeff of Matteo 14.9 H (11.5-14.5) % Plt Count 97 L (130-400) K/uL MPV 10.8 H (7.4-10.4) fL Sodium 137 (136-145) mmol/L Potassium 3.0 L (3.5-5.1) mmol/L Chloride 106 (98-107) mmol/L Carbon Dioxide 23 (21-32) mmol/L Anion Gap 8.0 (3-11) BUN 5 L D (7-18) mg/dl Creatinine 0.41 L (0.6-1.2) mg/dl Est Cr Clr Drug Dosing 92.3 ml/min Est GFR ( Amer) 116.3 Est GFR (Non-Af Amer) 100.4 BUN/Creatinine Ratio 11.2 (10-20) Glucose 94 (70-99) mg/dl Calcium 7.0 L (8.5-10.1) mg/dl Magnesium 1.8 (1.8-2.4) mg/dl Troponin I 0.178 H* (0-0.045) ng/ml
[2018-09-29] MEDS: ONDANSETRON INJ 2 MG/ML 2 ML VIAL IV PRN ×2 (12:55→22:16)
[2018-09-29] MEDS ORDERED: CALCIUM GLUCONATE 10% 1,000 MG in SODIUM CHLORIDE 0.9% 50 ML IV STA (14:05)
[2018-09-29] MEDS: MAGNESIUM SULFATE / D5W 1 GM/100 ML BAG IV SCH ×2 (14:07→14:55)
[2018-09-29 14:43] LABS: BUN Creatinine Ratio 9.6 (10-20); Calcium 7.5 mg/dl (8.5-10.1); Creatinine Clr Calc Pharmacy 60.1 ml/min; Est GFR (Non-African American) 87.1; Potassium 4.2 mmol/L (3.5-5.1)
[2018-09-29 15:05] LABS: Troponin I 0.149 ng/ml (0-0.045)
[2018-09-29] MEDS: HYDROCORTISONE SOD 50 MG in SYRINGE 0 ML IV SCH ×2 (15:35→22:25)
[2018-09-29] MEDS: POTASSIUM CHLORIDE 20 MEQ in LACTATED RINGER'S 1,000 ML IV SCH (18:49)
[2018-09-29] MEDS: CETIRIZINE HCL 10 MG TABLET PO SCH (22:19)
[2018-09-29] MEDS: ATORVASTATIN 10 MG TAB PO SCH (22:20)
[2018-09-30] MEDS: POTASSIUM CHLORIDE 20 MEQ in LACTATED RINGER'S 1,000 ML IV SCH (05:33)
[2018-09-30 05:56] LABS: Hematocrit (blood only) 32.5 % (37-47); Hemoglobin 10.5 g/dL (12.0-16.0); Mean Corpuscular Hgb Conc 32.3 g/dL (32-36); Mean Corpuscular Volume 91.3 fL (80-100); RDW Coefficient of Variation 14.8 % (11.5-14.5); RDW Standard Deviation 49.3 fL (36.4-46.3); Red Blood Count 3.56 M/uL (4.2-5.4); White Blood Count 4.66 K/uL (4.8-10.8)
[2018-09-30 05:57] LABS: Mean Platelet Volume 11.8 fL (7.4-10.4); Platelet Count 98 K/uL (130-400)
[2018-09-30] MEDS: HYDROCORTISONE SOD 50 MG in SYRINGE 0 ML IV SCH (05:59)
[2018-09-30 06:25] LABS: BUN Creatinine Ratio 17.1 (10-20); Calcium 7.4 mg/dl (8.5-10.1); Creatinine Clr Calc Pharmacy 71.4 ml/min; Est GFR (African American) 106.9; Est GFR (Non-African American) 92.2; Potassium 4.2 mmol/L (3.5-5.1)
[2018-09-30 06:30] LABS: Troponin I 0.043 ng/ml (0-0.045)
[2018-09-30] MEDS ORDERED: CALCIUM GLUCONATE 10% 1,000 MG in SODIUM CHLORIDE 0.9% 50 ML IV STA (08:48)
[2018-09-30] MEDS: FLUTICASONE PROPIONATE NA SPR 16 GM BTL SCH (09:17)
[2018-09-30] MEDS: CHOLECALCIFEROL 1,000 UNITS TAB PO SCH (09:18)
[2018-09-30] MEDS: ASPIRIN 81 MG ECTAB PO SCH (09:18)
[2018-09-30] MEDS: CALCIUM 600MG + VIT D 400 IU TAB PO SCH ×2 (09:18→20:10)
[2018-09-30] MEDS: CEROVITE ADV FORMULA TAB PO SCH (09:18)
[2018-09-30] MEDS: FOLIC ACID 1 MG TAB PO SCH (09:19)
[2018-09-30] MEDS: ACETAMINOPHEN 500 MG TAB PO SCH ×3 (09:19→20:10)
[2018-09-30] MEDS: METOPROLOL SUCC 50MG EXT REL TAB PO SCH ×2 (09:20→20:11)
[2018-09-30 09:28] LABS: Albumin Level 2.7 gm/dl (3.4-5.0); Bilirubin Direct 0.2 mg/dl (0-0.2); Bilirubin,Total 0.6 mg/dl (0.2-1); Magnesium 2.2 mg/dl (1.8-2.4); Total Protein 5.5 gm/dl (6.4-8.2)
--- NOTE | 2018-09-30 12:27 | Hospitalist Progress Note ---
Date of Service September 30, 2018 Assessment & Plan (1) Sepsis: - Secondary to viral gastroenteritis; was tachycardic, tachypneic with lactate of 5.4 on admission. - D/c IV fluids. - CXR was negative; CT A/P +enterititis as noted below. - Blood cultures negative. - Decrease stress dose steroids to 25 mg IV q8hr. (2) Enteritis: - CT A/P showed enteritis/diarrheal state. - C. diff gene +, toxin was negative. Stool cultures negative. - Received IV Flagyl on 09/26, hold further doses; recently did complete course of Clindamycin. - Advance to regular diet. - Phenergan, Reglan and Zofran prn N/V. (3) Chronic diastolic heart failure: - Echo showed EF 60-65%, grade III diastolic heart failure. - Monitor for fluid overload. - Monitor I/Os and daily weights. - Continue Metoprolol as prescribed. (4) Elevated troponin: - Trop peaked at 0.055 on 09/26/18 then trended down. - Developed SVT followed by ST depression noted on monitor on 09/29/18. - Repeat troponin level peaked at 0.178 -- likely related to SVT. - EKG was negative for acute changes compared to prior studies. - TTE results as noted above. - No indication for cardiology consult. (5) SVT (supraventricular tachycardia): - 2 minute run of SVT in the morning on 09/29, now resolved. - Was likely multifactorial related to electrolyte depletion, dehyration. - Maintain K>4 and Mag >2, replacement as noted below. - No further episodes over last 24 hours. (6) Heart valve disease: - Echo showed severe mitral annular calcification, mild mitral regurg, mild mitral stenosis. (7) Hypertrophic cardiomyopathy: - Continue Metoprolol 50 mg BID. (8) Hyperlipidemia: - Continue statin and aspirin as prescribed. (9) Hypertension: - Continue Metoprolol as prescribed. (10) Rheumatoid arthritis: - Hold MTX for now. - Decrease stress dose steroids to 25 mg IV q8hr -- will resume home Prednisone 5 mg on 10/01/18. (11) Anemia: - Hemoglobin now trending back up, was likely dilutional. - Will monitor CBC qAM. (12) Electrolyte abnormality: - No Mag or K replacement required. - Corrected calcium level was low; ordered calcium gluconate 1 gm IV. - Monitor BMP qAM. (13) DVT prophylaxis: - Hold Lovenox due to thrombocytopenia; SCDs. Dispo: Discharge likely on 10/01/18 pending improvement in appetite; will need home health arranged. Supervising Physician Co-Signing Physician Notes Attending Attestation - Chart reviewed in detail, and care plan d/w PA Lauryn Maria. I agree w/ the kelly components of her documentation. Pt continues her recovery from probable viral gastroenteritis. No further SVT. Echo results reviewed. Labs stable today; vitals stable as well. Progressing. Dale Montero MD Subjective Pt. is doing well overall. Nausea now resolved, was able to eat breakfast. Plan to remove estes today for voiding trial. Last episode of diarrhea was yesterday; pt is now only passing gas. Will advance diet and plan for discharge tomorrow if medically stable. Review of Systems All systems reviewed & are unremarkable except as noted in HPI & below Constitutional: + fatigue and + weakness; no fever, no chills and no anorexia Respiratory: no cough and no dyspnea Cardiovascular: no chest pain, no palpitations and no edema Gastrointestinal: + constipation; no abdominal pain, no nausea, no vomiting and no diarrhea/loose stools Musculoskeletal: no joint pain Allergy / Immunological: no rash Physical Exam Vital Signs (Past 24 Hours): Last Vital Signs Temp 36.7 C 09/30/18 07:57 Pulse 66 09/30/18 07:57 Resp 16 09/30/18 07:57 BP 173/76 H 09/30/18 07:57 Pulse Ox 95 09/30/18 07:57 Physical Exam: General: Resting comfortably in no apparent distress; A&OX3 HEENT: NC/AT; PERRLA with EOMI; [place] conjunctiva, MMM. Neck: Supple and nontender Cardiac: RRR Lungs: CTA bilaterally Abdomen: Bowel normoactive X 4; Nontender to palpation Extremities: Warm. No edema present Neuro: No focal weakness Skin: No rash Results & Data Laboratory Results 09/30/18 09/30/18 09/30/18 Range/Units 05:25 05:25 05:25 WBC 4.66 L (4.8-10.8) K/uL RBC 3.56 L (4.2-5.4) M/uL Hgb 10.5 L (12.0-16.0) g/dL Hct 32.5 L (37-47) % MCV 91.3 (80-100) fL MCH 29.5 (25-34) pg MCHC 32.3 (32-36) g/dL RDW Std Deviation 49.3 H (36.4-46.3) fL RDW Coeff of Matteo 14.8 H (11.5-14.5) % Plt Count 98 L (130-400) K/uL MPV 11.8 H (7.4-10.4) fL Sodium 139 (136-145) mmol/L Potassium 4.2 (3.5-5.1) mmol/L Chloride 109 H (98-107) mmol/L Carbon Dioxide 27 (21-32) mmol/L Anion Gap 3.0 (3-11) BUN 9 (7-18) mg/dl Creatinine 0.53 L (0.6-1.2) mg/dl Est Cr Clr Drug Dosing 71.4 ml/min Est GFR ( Amer) 106.9 Est GFR (Non-Af Amer) 92.2 BUN/Creatinine Ratio 17.1 (10-20) Glucose 131 H (70-99) mg/dl Calcium 7.4 L (8.5-10.1) mg/dl Magnesium 2.2 (1.8-2.4) mg/dl Total Bilirubin 0.6 (0.2-1) mg/dl Direct Bilirubin 0.2 (0-0.2) mg/dl AST 27 (15-37) U/L ALT 21 (12-78) U/L Alkaline Phosphatase 62 (45-117) U/L Troponin I 0.043 (0-0.045) ng/ml Total Protein 5.5 L (6.4-8.2) gm/dl Albumin 2.7 L (3.4-5.0) gm/dl Lipase (73-393) U/L 09/29/18 09/29/18 Range/Units 20:54 14:02 WBC (4.8-10.8) K/uL RBC (4.2-5.4) M/uL Hgb (12.0-16.0) g/dL Hct (37-47) % MCV (80-100) fL MCH (25-34) pg MCHC (32-36) g/dL RDW Std Deviation (36.4-46.3) fL RDW Coeff of Matteo (11.5-14.5) % Plt Count (130-400) K/uL MPV (7.4-10.4) fL Sodium 138 (136-145) mmol/L Potassium 4.2 D (3.5-5.1) mmol/L Chloride 110 H (98-107) mmol/L Carbon Dioxide 22 (21-32) mmol/L Anion Gap 6.0 (3-11) BUN 6 L (7-18) mg/dl Creatinine 0.63 (0.6-1.2) mg/dl Est Cr Clr Drug Dosing 60.1 ml/min Est GFR ( Amer) 101.0 Est GFR (Non-Af Amer) 87.1 BUN/Creatinine Ratio 9.6 L (10-20) Glucose 107 H (70-99) mg/dl Calcium 7.5 L (8.5-10.1) mg/dl Magnesium (1.8-2.4) mg/dl Total Bilirubin (0.2-1) mg/dl Direct Bilirubin (0-0.2) mg/dl AST (15-37) U/L ALT (12-78) U/L Alkaline Phosphatase (45-117) U/L Troponin I 0.082 H* 0.149 H* (0-0.045) ng/ml Total Protein (6.4-8.2) gm/dl Albumin (3.4-5.0) gm/dl Lipase 159 (73-393) U/L
[2018-09-30] MEDS: HYDROCORTISONE SOD 25 MG in SYRINGE 0 ML IV SCH ×2 (13:37→20:41)
[2018-09-30] MEDS: CETIRIZINE HCL 10 MG TABLET PO SCH (20:40)
[2018-09-30] MEDS: CALCIUM CARBONATE 500 MG CHEWABLE TAB PO PRN (20:40)
[2018-09-30] MEDS: LORazepam 0.5 MG TAB PO PRN (20:40)
[2018-09-30] MEDS: ATORVASTATIN 10 MG TAB PO SCH (20:41)
[2018-10-01 06:52] LABS: Hematocrit (blood only) 35.1 % (37-47); Hemoglobin 11.3 g/dL (12.0-16.0); Mean Corpuscular Hgb Conc 32.2 g/dL (32-36); Mean Corpuscular Volume 90.9 fL (80-100); Mean Platelet Volume 11.4 fL (7.4-10.4); Platelet Count 170 K/uL (130-400); RDW Coefficient of Variation 15.1 % (11.5-14.5); RDW Standard Deviation 49.2 fL (36.4-46.3); Red Blood Count 3.86 M/uL (4.2-5.4)
[2018-10-01] MEDS: FLUTICASONE PROPIONATE NA SPR 16 GM BTL SCH (07:41)
[2018-10-01] MEDS: CALCIUM 600MG + VIT D 400 IU TAB PO SCH (07:42)
[2018-10-01] MEDS: CHOLECALCIFEROL 1,000 UNITS TAB PO SCH (07:42)
[2018-10-01 07:49] LABS: Albumin Globulin Ratio 0.9 (0.9-2); Albumin Level 2.8 gm/dl (3.4-5.0); BUN Creatinine Ratio 20.8 (10-20); Bilirubin,Total 0.5 mg/dl (0.2-1); Creatinine Clr Calc Pharmacy 58.2 ml/min; Est GFR (Non-African American) 86.2; Globulin 3.1 gm/dl (2.5-4.0); Potassium 3.4 mmol/L (3.5-5.1); Total Protein 5.9 gm/dl (6.4-8.2)
[2018-10-01] MEDS: FOLIC ACID 1 MG TAB PO SCH (08:18)
[2018-10-01] MEDS: METOPROLOL SUCC 50MG EXT REL TAB PO SCH (08:18)
[2018-10-01] MEDS: ASPIRIN 81 MG ECTAB PO SCH (08:18)
[2018-10-01] MEDS: CEROVITE ADV FORMULA TAB PO SCH (08:19)
[2018-10-01] MEDS: ACETAMINOPHEN 500 MG TAB PO SCH (08:19)
[2018-10-01] MEDS ORDERED: POTASSIUM CHLORIDE 20 MEQ TABCR PO ONE (08:45)
[2018-10-01] MEDS ORDERED: predniSONE 5 MG TAB PO SCH (09:00)
--- NOTE | 2018-10-01 12:32 | Discharge Summary ---
Date of Service October 01, 2018 Admission HPI Per Admitting Provider Ms. Carlton is accompanied by her . She is very ashen and tired on presentation. She reports she began to feel ill yesterday afternoon. The neighbor was sick but that is the only sick contact. She and her reside at the [facility] at [place]. Nausea, vomiting, diarrhea which she is incontinent with. She does have some pain in her stomach and her chest feels a bit tight which worsens with inspiration. Mild cough. Pmhx: patient has history of hypertrophic cardiomyopathy, frequent back surgeries, rheumatoid arthritis, Social: lives with at the [facility], non smoker, no alcohol Family hx: non contributory Admission Exam Per Admitting Provider General: ill appearing Eyes: normal inspection, PERLL Respiratory: chest non tender, left lower lobe crackles, all other gooden clear to auscultation, no respiratory distress, no accessory muscle use Cardiac: regular rate and rhythm, no rub or gallop, holosystolic murmur, no edema, no jvd GI/: active bowel sounds, abdomen tender to palpation, soft, non distended Extremities: normal range of motion, normal strength, non tender Neuro:oriented x 3, moves all extremities Psych:drowsy, normal mood and affect Skin: ashen color, dry Principal Diagnosis Sepsis related to viral gastroenteritis Discharge Exam General: Resting comfortably in no apparent distress; A&OX3 HEENT: NC/AT; PERRLA with EOMI; [place] conjunctiva, MMM. Neck: Supple and nontender Cardiac: RRR Lungs: CTA bilaterally Abdomen: Bowel normoactive X 4; Nontender to palpation Extremities: Warm. No edema present Neuro: No focal weakness Skin: No rash Discharge Data Allergies Allergy/AdvReac Type Severity Reaction Status Date / Time bee venom protein (honey bee) Allergy Intermediate BEE/WASP-NAUSEA Verified 09/26/18 04:36 AND DIZZINESS Penicillins Allergy Intermediate RASH (PER Verified 09/26/18 04:36 PT, WAS A LONG TIME AGO)AMOXICILLIN AND PCN amoxicillin [From Augmentin] Allergy Mild Unknown Verified 09/26/18 04:36 clavulanic acid Allergy Mild Unknown Verified 09/26/18 04:36 [From Augmentin] esomeprazole Allergy Mild NAUSEA Verified 09/26/18 04:36 VOMITING magnesium citrate Allergy Mild projectile Verified 09/26/18 04:36 vomitting antipyrine Allergy Unknown RASH AND Verified 09/26/18 04:36 BLISTERS benzocaine Allergy Unknown dental - Verified 09/26/18 04:36 tingling on tongue hydroxychloroquine Allergy Unknown UNKNOWN Verified 09/26/18 04:36 misoprostol Allergy Unknown UNKNOWN Verified 09/26/18 04:36 phenylephrine Allergy Unknown UNKNOWN Verified 09/26/18 04:36 pseudoephedrine Allergy Unknown UNKNOWN Verified 09/26/18 04:36 Serotonin 5HT-3 Antagonists Allergy Unknown UNKNOWN Verified 09/29/18 10:39 Sulfa (Sulfonamide Allergy Unknown UNKNOWN Verified 09/26/18 04:36 Antibiotics) citalopram AdvReac Mild GI UPSET Verified 09/26/18 04:36 clarithromycin AdvReac Mild GI UPSET Verified 09/26/18 04:36 Consultations 09/26/18 07:41 ED Decision to Admit Stat 09/26/18 10:55 Consult Case Management - Discharge Planning Routine Ordered Studies 09/26/18 05:08 CT abd pelvis IV con only Urgent 09/26/18 CXR Hospital Course (1) Sepsis: Secondary to viral gastroenteritis; was tachycardic, tachypneic with lactate of 5.4 on admission. CXR negative; CT A/P showed enteritis. Blood cultures negative. (2) Enteritis: CT A/P showed enteritis/diarrheal state. C. diff gene +, toxin was negative. Stool cultures negative. Received IV Flagyl on 09/26, hold further doses; recently did complete course of Clindamycin. No treatment indicated for C. diff +gene. Phenergan, Reglan and Zofran were ordered as needed. Pt was tolerating regular diet prior to discharge and diarrhea improved. (3) Chronic diastolic heart failure: Echo showed EF 60-65%, grade III diastolic heart failure. Continued home Metoprolol. No evidence of acute exacerbation. (4) Elevated troponin: Trop peaked at 0.055 on 09/26/18 then trended down. Pt. developed SVT followed by ST depression on 09/29/18. Repeat trop levels peaked at 0.178 then trended down. EKG was negative. TTE results as noted above. No indication for cardio consult or further testing. (5) SVT (supraventricular tachycardia): 2 minute run of SVT in the morning on 2/28, now resolved. Likely multifactorial related to electrolyte depletion, dehyration. Maintained K>4 and Mag >2, replacement as noted below. Did not have any further episodes of SVT. (6) Heart valve disease: Echo showed severe mitral annular calcification, mild mitral regurg, mild mitral stenosis. (7) Hypertrophic cardiomyopathy: Continued Metoprolol 50 mg BID. (8) Hyperlipidemia: Continued statin and aspirin as prescribed. (9) Hypertension: Continued Metoprolol as prescribed. (10) Rheumatoid arthritis: Held MTX during this admission, can resume as outpt. Received stress dose steroids, will resume home Prednisone at home. (11) Anemia: CBC monitored daily. No transfusions were required. (12) Electrolyte abnormality: Electrolytes were replaced as needed. (13) DVT prophylaxis: Lovenox was held due to thrombocytopenia. Discharge to home on 10/01/18. Total Time Total Time Spent Total Time Spent (In Minutes): >30 minutes Total Time Includes: Examination of the Patient, Discharge Planning, Medication Reconciliation, Communication With Other Providers and Other Discharge Plan Discharge Items Patient Disposition: Personal Senior Living Reason For Visit: SEPSIS Discharge Diagnosis: Sepsis related to viral gastroenteritis Condition: Fair Discharge Goals: Decrease discomfort, Improve function, Increase independence, Improve nutritional status and Prevent disease Activity: As commented below Exercise/Sports: Gradually increase as tolerated Non-emergency contact: Primary Care Provider Call non-emergency contact if: you have any medication questions, your symptoms worsen, your pain is not controlled, your pain is worsening, your pain is concerning for you and you have a fever Diet: Regular Addtl Provider Instructions: 1. Viral Gastroenteritis * Please continue a regular diet at home as tolerated. * Please drink plenty of fluids -- at least 8 glasses of water per day. * Zofran has been prescribed for nausea at home -- please take Zofran 4 mg every 6 hours as needed. Prescription was sent to your pharmacy. 2. Rheumatoid arthritis * Please continue home Prednisone 5 mg daily. * Please resume methotrexate as prescribed following discharge. 3. Home health has been arranged for cardiopulmonary assessment and medication management. 4. Please schedule an appointment with your family doctor in 1-2 weeks to discuss this hospital admission. 5. Please call your family doctor or go to the ER if you develop the following: * Chest pain or shortness of breath. * Increased nausea/vomiting, diarrhea or abdominal pain. Prescriptions: New ondansetron HCl [Zofran] 4 mg tablet 4 mg PO Q6H Qty: 14 RF: 0 Continued atorvastatin 10 mg Tablet 10 mg PO PM RF: 0 metoprolol succinate 50 mg Tablet Extended Release 24 Hr 50 mg PO BID RF: 0 prednisone 5 mg Tablet 5 mg PO QAM RF: 0 aspirin 81 mg Tablet,Delayed Release (Dr/Ec) 81 mg PO QAM RF: 0 acetaminophen [Tylenol Extra Strength] 500 mg Tablet 1,000 mg PO TID RF: 0 lorazepam 0.5 mg Tablet 0.5 mg PO TID PRN (Reason: Anxiety) RF: 0 methotrexate sodium 2.5 mg Tablet 15 mg PO WK RF: 0 pantoprazole 40 mg Tablet,Delayed Release (Dr/Ec) 40 mg PO QAM RF: 0 cholecalciferol (vitamin D3) [Vitamin D3] 1,000 unit Capsule 1,000 unit PO QAM RF: 0 calcium carbonate-vitamin D3 [Calcium 600 + D(3)] 600 mg calcium- 200 unit Capsule 1 tab PO BID RF: 0 cetirizine [Zyrtec] 10 mg Capsule 10 mg PO HS RF: 0 calcium carbonate [Tums] 200 mg calcium (500 mg) Tablet,Chewable 200 mg PO QID PRN (Reason: Stomach Upset) RF: 0 lactase [Lactaid] 3,000 unit Tablet 3,000 unit PO AC PRN (Reason: Stomach Upset) RF: 0 fluticasone 50 mcg/actuation [place],Suspension 2 spray INTRANASAL QAM RF: 0 melatonin 1 mg Tablet 1 - 2 mg PO HS PRN (Reason: Sleep) RF: 0 artificial tears(hypromellose) [Systane Gel] 0.3 % Gel 1 drp OPB QID PRN (Reason: Dry Eye(S)) RF: 0 methylcellulose (with sugar) [Citrucel (sucrose)] Powder 1 tbsp PO DAILY RF: 0 folic acid 800 mcg Tablet 2 mg PO DAILY RF: 0 multivitamin with minerals Tablet 1 tab PO DAILY RF: 0 diphenhydramine HCl [Benadryl] 25 mg Capsule 25 mg PO DIRECTED PRN (Reason: Allergy Symptoms) RF: 0 epinephrine [EpiPen] 0.3 mg/0.3 mL Auto-Injector 0.3 mg IM DIRECTED PRN (Reason: Allergic Reaction) RF: 0 ciprofloxacin-dexamethasone [Ciprodex] 0.3-0.1 % Drops,Suspension 4 drp OTIC (EAR) BID PRN (Reason: WHEN NEEDED) RF: 0 denosumab [Prolia] 60 mg/mL Syringe 1 dose subcut DIRECTED RF: 0 Discontinued sennosides-docusate sodium [Senna-S] 8.6-50 mg Tablet 2 tab PO DAILY PRN (Reason: Constipation) RF: 0 docusate sodium [Colace] 100 mg Capsule 100 - 300 mg PO DAILY RF: 0 magnesium hydroxide [Milk of Magnesia] 400 mg/5 mL Suspension 15 ml PO HS PRN (Reason: Constipation) RF: 0 Stand-Alone Forms: [facility] Discharge Orders: Discharge Order (Routine); Ordered 10/01/18 Ordered By: Lauryn Maria Admission Data Admit Date/Time: 09/26/18 09:15 Attending Provider: Dale Montero Admit Provider: Martell Jim Primary Care Provider: BINDU, Service: Telemetry Medical Other Interventions: Discharge Summary Assessment (RN) Last Done: 10/01/18 11:44 Pending Studies at Discharge: No DC Date/Time DO NOT enter until pt leaves facility: 10/01/18 13:41 Supervising Physician Co-Signing Physician Notes Attending Attestation and Discharge Note: Pt seen/examined, chart reviewed in detail, and care plan d/w JENNY Maria. I agree w/ the kelly components of her discharge documentation. 77yo female with chronic diastolic CHF and hypertrophic cardiomyopathy along with steroid-dependent RA who presented with gastroenteritis. Likely viral in etiology; c diff toxin was neg and stool cx was neg. Course complicated by brief episode of SVT and electrolyte disturbances from her diarrhea. Echo showed grade 3 diastolic dysfunction and stable hypertrophic anatomy of the LV. Progressed through her stay with supportive care measures & stress dose steroids. She is eating/drinking/ambulating at time of discharge and will d/c home. Discharge exam - gen- NAD, a/o x 3, thin neck - webbing mouth - MMM heart - RRR, s1, s2, 2/6 early systolic murmur heard loudest at LSB lungs - CTA b/l abd - soft, NT, ND, BS+ ext - no edema Close outpatient f/u with PCP advised. Dale Montero MD
== END 2018-10-01 13:41 | disposition home or self-care (01) | DRG 872 ==
LOC: ED 04:13 → 2N 09:15 → SUATTDRO 09:15 → 2N 10:36
DX: I50.32 Chronic diastolic (congestive) heart failure; E83.42 Hypomagnesemia; Z79.52 Long term (current) use of systemic steroids; M06.9 Rheumatoid arthritis, unspecified; I42.2 Other hypertrophic cardiomyopathy; E78.5 Hyperlipidemia, unspecified; E27.40 Unspecified adrenocortical insufficiency; I47.1 Supraventricular tachycardia; A08.4 Viral intestinal infection, unspecified; D64.9 Anemia, unspecified; Z79.82 Long term (current) use of aspirin; K57.90 Diverticulosis of intestine, part unspecified, without perforation or abscess without bleeding; Z79.899 Other long term (current) drug therapy; I11.0 Hypertensive heart disease with heart failure; A41.9 Sepsis, unspecified organism

== ENCOUNTER 2022-08-05 14:56 | Inpatient (IN) ==
--- NOTE | 2022-08-05 15:53 | XRay Report ---
XR chest 1V portable CLINICAL HISTORY: Fever, cough TECHNIQUE: Single frontal radiograph of the chest was obtained. Comparison: Comparison is made to chest radiograph 09/26/2018 FINDINGS: No lines and tubes are seen. The cardiomediastinal silhouette is normal. Prominence and cephalization of the vasculature is seen. No evidence of pleural effusion or pneumothorax. IMPRESSION: No acute abnormalities and in particular no evidence of pneumonia. Possible mild pulmonary edema. ACT 112: Negative or not required by law. Electronically signed by: Martell Webster M.D. 08/05/2022 3:51 PM
[2022-08-05 16:16] LABS: Alanine Aminotransferase 15 U/L (7-52); Albumin Globulin Ratio 1.8 (0.9-2); Albumin Level 4.6 gm/dl (3.4-5.0); Alkaline Phosphatase 52 U/L (34-104); Anion Gap 11 (3-11); Aspartate Aminotransferase 25 U/L (13-39); Bilirubin,Total 0.9 mg/dl (0.2-1.0); Blood Urea Nitrogen 13 mg/dl (6-23); Calcium 9.3 mg/dl (8.5-10.1); Carbon Dioxide 25 mmol/L (21-32); Chloride 99 mmol/L (98-107); Est GFR (African American) 79.5 ml/min; Est GFR (Non-African American) 68.6 ml/min; Globulin 2.5 gm/dl (2.5-4.0); Glucose 117 mg/dl (70-99(Fasting)); Potassium 3.8 mmol/L (3.5-5.1); Sodium 135 mmol/L (136-145); Total Protein 7.1 gm/dl (6.0-8.3)
[2022-08-05 16:18] LABS: Troponin I High Sensitivity 34.5 pg/ml (0-14)
[2022-08-05 16:31] LABS: Hematocrit (blood only) 38.9 % (34.1-44.9); Hemoglobin 12.7 g/dl (12.0-16.0); White Blood Count 9.81 K/ul (4.8-10.8)
[2022-08-05 16:36] LABS: Influenza A virus by PCR Negative (Neg); Influenza B virus by PCR Negative (Neg); RSV by PCR Negative (Neg)
[2022-08-05 17:11] LABS: Mean Corpuscular Hemoglobin 30.1 pg (25.0-34.0); Mean Corpuscular Hgb Conc 32.6 g/dL (32.0-36.0); Mean Corpuscular Volume 92.2 fL (80.0-100.0); RDW Coefficient of Variation 15.8 % (11.5-14.5); RDW Standard Deviation 53.1 fL (36.4-46.3); Red Blood Count 4.22 M/uL (3.93-5.22)
[2022-08-05 17:12] LABS: Basophils # (auto) 0.01 K/uL (0-0.2); Basophils % (auto) 0.1 %; Immature Granulocytes # (auto) 0.04 K/uL (0.00-0.02); Immature Granulocytes % (auto) 0.4 %; Lymphocytes # (auto) 0.26 K/uL (1.2-3.4); Lymphocytes % (auto) 2.7 %; Monocytes # (auto) 0.87 K/uL (0.24-0.82); Monocytes % (auto) 8.9 %; Neutrophils # (auto) 8.63 K/uL (1.4-6.5); Neutrophils % (auto) 87.9 %
[2022-08-05] MEDS ORDERED: SODIUM CHLORIDE 0.9% 250 ML IV ONE (17:44)
[2022-08-05] MEDS ORDERED: ONDANSETRON INJ 2 MG/ML 2 ML VIAL IV STA (17:44)
--- NOTE | 2022-08-05 17:51 | Emergency Department Note ---
History of Present Illness General Chief complaint: Illness Time Seen by Provider: 08/05/22 17:33 Source: patient, family ( who is at the bedside), RN notes reviewed and old records reviewed Mode of arrival: ambulatory Limitations: no limitations History of Present Illness This patient comes in with multiple complaints. She says she is felt ill since yesterday. She has had nausea she feels generally weak she has a headache. The weakness is diffuse nonfocal . no fever, she has occasional cough. no shortness of breath . no chest pain. she has not been drinking much her appetites been down. no diarrhea. no blood or melena stool. no urinary symptoms. No dysuria or hematuria. she has chronic back pain she is treated for RA presents that she has been feeling depressed lately as well. No definite fever she may have had some chills. Home Medications Medication Instructions Recorded Confirmed Type acetaminophen 500 mg tablet See Rx Instructions .Route .COMPLEX 08/17/18 08/05/22 History (Tylenol Extra Strength) aspirin 81 mg tablet,delayed 81 mg PO [facility] 08/17/18 08/05/22 History release atorvastatin 10 mg tablet 10 mg PO 08/17/18 08/05/22 History calcium carbonate 600 mg-vitamin 1 tab PO [facility] 08/17/18 08/05/22 History D3 5 mcg (200 unit) capsule (Calcium 600 + D(3)) cetirizine 10 mg capsule (Zyrtec) 10 mg PO 08/17/18 08/05/22 History cholecalciferol (vitamin D3) 25 1,000 unit PO [facility] 08/17/18 08/05/22 History mcg (1,000 unit) capsule (Vitamin D3) fluticasone propionate 50 2 spray intranasal [facility] 08/17/18 08/05/22 History mcg/actuation nasal spray,suspension lorazepam 0.5 mg tablet 0.5 mg PO 08/17/18 08/05/22 History melatonin 1 mg tablet 2 mg PO 08/17/18 08/05/22 History metoprolol succinate 50 mg 50 mg PO [facility] 08/17/18 08/05/22 History tablet,extended release 24 hr pantoprazole 40 mg tablet,delayed 40 mg PO [facility] 08/17/18 08/05/22 History release prednisone 5 mg tablet 7.5 mg PO [facility] 08/17/18 08/05/22 History folic acid 800 mcg tablet 2,000 mcg PO .[email or web address]@[email or web address] 09/26/18 08/05/22 History methotrexate sodium 2.5 mg tablet 20 mg PO WK 08/05/22 08/05/22 History multivitamin 1 tab PO DAILY 08/05/22 08/05/22 History Allergies Allergy/AdvReac Type Severity Reaction Status Date / Time bee venom protein (honey bee) Allergy Intermediate BEE/WASP-NAUSEA Verified 05/18/20 15:46 AND DIZZINESS Penicillins Allergy Intermediate RASH (PER Verified 05/18/20 15:46 PT, WAS A LONG TIME AGO)AMOXICILLIN AND PCN amoxicillin [From Augmentin] Allergy Mild Unknown Verified 05/18/20 15:46 clavulanic acid Allergy Mild Unknown Verified 05/18/20 15:46 [From Augmentin] esomeprazole Allergy Mild NAUSEA Verified 05/18/20 15:46 VOMITING magnesium citrate Allergy Mild projectile Verified 05/18/20 15:46 vomitting antipyrine Allergy Unknown RASH AND Verified 05/18/20 15:46 BLISTERS benzocaine Allergy Unknown dental - Verified 05/18/20 15:46 tingling on tongue hydroxychloroquine Allergy Unknown UNKNOWN Verified 05/18/20 15:46 misoprostol Allergy Unknown UNKNOWN Verified 05/18/20 15:46 phenylephrine Allergy Unknown UNKNOWN Verified 05/18/20 15:46 pseudoephedrine Allergy Unknown UNKNOWN Verified 05/18/20 15:46 Serotonin 5HT-3 Antagonists Allergy Unknown UNKNOWN Verified 05/18/20 15:46 Sulfa (Sulfonamide Allergy Unknown UNKNOWN Verified 05/18/20 15:46 Antibiotics) citalopram AdvReac Mild GI UPSET Verified 05/18/20 15:46 clarithromycin AdvReac Mild GI UPSET Verified 05/18/20 15:46 denosumab [From Prolia] AdvReac Unknown Unknown Unverified 05/18/20 15:46 SSRI AdvReac Unknown Unknown Uncoded 05/18/20 15:46 Tympagesic ear drops AdvReac Unknown Unknown Uncoded 05/18/20 15:46 Past Med/Surg History Medical History Anxiety Diverticulitis GERD (gastroesophageal reflux disease) Hiatal hernia HOCM (hypertrophic obstructive cardiomyopathy) Hyperlipidemia Hypertension Hypertrophic cardiomyopathy with LVOT and LEYDA IBS (irritable bowel syndrome) Kidney stones passed on own Lactose intolerance Lumbar stenosis with neurogenic claudication Mitral valve prolapse Osteoporosis PONV (postoperative nausea and vomiting) Rheumatoid arthritis Surgical History History of appendectomy History of cataract surgery right and left History of endoscopic sinus surgery History of lumbar spinal fusion History of tonsillectomy and adenoidectomy Hx of mastoidectomy Social History Smoking Status: Never smoker Second Hand Exposure: No; Do You Dip or Chew Tobacco: No; Hx Alcohol Use: No Hx Substance Use: No Preferred Language: Kinyarwanda Communication Ability: Effective Visual Impairment: No Limitations Extractor Loader And Unloader Required: No Beliefs That Will Affect Care: None Current Living Situation: Spouse and Personal Care Facility Current Living Situation Comment: [facility] Feels Safe at Home: Yes Safety Concerns: Feels Safe At This Time Assistive Devices: Cane, Denture - Upper, Glasses and Walker Review of Systems A total of 10 systems reviewed and were otherwise negative Physical Exam Vital Signs Vital Signs - 24 hr 08/05/22 15:01 08/05/22 17:44 08/05/22 18:15 Temperature 36.4 C L Temperature Source Temporal Artery Scan Pulse Rate 105 H 100 H Pulse Rate [Right Finger] 100 H Pulse Rate from SpO2 Sensor 95 H Pulse Rhythm Regular Respiratory Rate 22 18 Respiratory Effort / Characteristics Non-Labored Spontaneous Respiratory Depth Normal Blood Pressure 92/56 L Blood Pressure [Right Arm] 84/58 L Blood Pressure Mean 68 Blood Pressure Mean [Right Arm] 66 Pulse Oximetry 96 97 97 Oxygen Delivery Method Room Air Room Air Sepsis Recent Fever Within 48 Hours No Sepsis New/Unexplained Change in Mental Status No Sepsis Action Taken by Nursing No Action Required 08/05/22 18:26 08/05/22 18:26 08/05/22 18:30 Temperature Temperature Source Pulse Rate 97 H 95 H Pulse Rate [Right Finger] Pulse Rate from SpO2 Sensor 96 H 99 H Pulse Rhythm Respiratory Rate 23 20 Respiratory Effort / Characteristics Respiratory Depth Blood Pressure 136/67 Blood Pressure [Right Arm] Blood Pressure Mean 90 Blood Pressure Mean [Right Arm] Pulse Oximetry 99 93 Oxygen Delivery Method Sepsis Recent Fever Within 48 Hours Sepsis New/Unexplained Change in Mental Status Sepsis Action Taken by Nursing 08/05/22 18:31 08/05/22 18:31 Temperature Temperature Source Pulse Rate 97 H Pulse Rate [Right Finger] Pulse Rate from SpO2 Sensor 96 H Pulse Rhythm Respiratory Rate 22 Respiratory Effort / Characteristics Respiratory Depth Blood Pressure 128/57 L 128/57 L Blood Pressure [Right Arm] Blood Pressure Mean 80 80 Blood Pressure Mean [Right Arm] Pulse Oximetry 98 Oxygen Delivery Method Sepsis Recent Fever Within 48 Hours Sepsis New/Unexplained Change in Mental Status Sepsis Action Taken by Nursing General: Well developed well nourished mildly ill-appearing older female who in no acute distress, breathing comfortably on room air. Normal speech HEENT: Normal cephalic atraumatic. Pupils are equal round and reactive to light. Extraocular movements are intact. Oropharynx is pink with moist mucous membranes. No swelling of the mouth lips or tongue. Neck: Supple with a midline trachea. No meningeal signs or stiffness, no JVD or bruits. No Stridor. Chest: Clear to auscultation bilaterally. No wheezes or rhonchi. No increased work of breathing. Heart: Regular rate and rhythm with frequent irregular beats. She does have a 2 out of 6 systolic murmur Abdomen: Soft nontender, nondistended without rebound guarding or rigidity. Extremities: No cyanosis clubbing or edema. No calf tenderness or assymetry Spine/Back. Non tender to palpation. No CVA tenderness Skin: Good turgor without rashes. Neurologic exam: Cranial nerves two through 12 are intact. Motor and sensation are intact and symmetrical throughout. Course Administered Medications Discontinued Medications Sodium Chloride (Nss) 250 mls @ 999 mls/hr IV .Q16M ONE Stop: 08/05/22 17:59 Last Infusion: 08/05/22 20:32 Dose: 0 mls/hr Documented By: Admin: 08/05/22 18:34 Dose: 999 mls/hr Documented By: MAGED Sodium Chloride (Nss) 500 mls @ 125 mls/hr IV .Q4H DAVID Stop: 09/04/22 18:59 Last Admin: 08/05/22 20:33 Dose: 125 mls/hr Documented By: JE Ondansetron HCl (Ondansetron Inj 2 Mg/Ml 2 Ml Vial) 4 mg IV NOW STA Stop: 08/05/22 17:45 Last Admin: 08/05/22 18:33 Dose: 4 mg Documented By: MAGED Medical Decision Making Differential Diagnosis Infection, COVID, sepsis, cardiac disease, intracranial process, electrolyte or metabolic abnormality, dehydration, influenza, UTI Medical Records Attestation: I reviewed the patient's medical records. Home Medications Current Medication List: was personally reviewed by me Laboratory Data Result diagrams: 08/05/22 15:20 08/05/22 15:20 Lab Results 08/05/22 08/05/22 08/05/22 Range/Units 15:20 15:20 15:20 WBC 9.81 (4.8-10.8) K/ul RBC 4.22 (3.93-5.22) M/uL Hgb 12.7 (12.0-16.0) g/dl Hct 38.9 (34.1-44.9) % MCV 92.2 (80.0-100.0) fL MCH 30.1 (25.0-34.0) pg MCHC 32.6 (32.0-36.0) g/dL RDW Std Deviation 53.1 H (36.4-46.3) fL RDW Coeff of Matteo 15.8 H (11.5-14.5) % Plt Count (130-400) K/uL MPV (9.4-12.3) fL Immature Gran % (Auto) 0.4 % Neut % (Auto) 87.9 % Lymph % (Auto) 2.7 % [place] % (Auto) 8.9 % Eos % (Auto) 0.0 % Baso % (Auto) 0.1 % Neut # (Auto) 8.63 H (1.4-6.5) K/uL Lymph # (Auto) 0.26 L (1.2-3.4) K/uL [place] # (Auto) 0.87 H (0.24-0.82) K/uL Eos # (Auto) 0.00 (0-0.50) K/uL Baso # (Auto) 0.01 (0-0.2) K/uL Immature Gran # (Auto) 0.04 H (0.00-0.02) K/uL Sodium 135 L (136-145) mmol/L Potassium 3.8 (3.5-5.1) mmol/L Chloride 99 (98-107) mmol/L Carbon Dioxide 25 (21-32) mmol/L Anion Gap 11 (3-11) BUN 13 (6-23) mg/dl Creatinine 0.81 (0.6-1.2) mg/dl Est Cr Clr Drug Dosing Not Reportable Est GFR ( Amer) 79.5 ml/min Est GFR (Non-Af Amer) 68.6 ml/min BUN/Creatinine Ratio 16.0 (10-20) Glucose 117 H (70-99(Fasting)) mg/dl Lactate (0.4-2.0) mmol/L Calcium 9.3 (8.5-10.1) mg/dl Magnesium (1.7-2.4) mg/dl Total Bilirubin 0.9 (0.2-1.0) mg/dl AST 25 (13-39) U/L ALT 15 (7-52) U/L Alkaline Phosphatase 52 (34-104) U/L Troponin I High Sens 34.5 H (0-14) pg/ml C-Reactive Protein (0-0.5) mg/dl B-Natriuretic Peptide (0-100) pg/ml Total Protein 7.1 (6.0-8.3) gm/dl Albumin 4.6 (3.4-5.0) gm/dl Globulin 2.5 (2.5-4.0) gm/dl Albumin/Globulin Ratio 1.8 (0.9-2) SARS-CoV-2 (PCR) POSITIVE A* (Negative) Influenza Type A (PCR) Negative (Neg) Influenza Type B (PCR) Negative (Neg) RSV (RT-PCR) Negative (Neg) 08/05/22 08/05/22 08/05/22 Range/Units 15:20 19:26 19:26 WBC (4.8-10.8) K/ul RBC (3.93-5.22) M/uL Hgb (12.0-16.0) g/dl Hct (34.1-44.9) % MCV (80.0-100.0) fL MCH (25.0-34.0) pg MCHC (32.0-36.0) g/dL RDW Std Deviation (36.4-46.3) fL RDW Coeff of Matteo (11.5-14.5) % Plt Count (130-400) K/uL MPV (9.4-12.3) fL Immature Gran % (Auto) % Neut % (Auto) % Lymph % (Auto) % [place] % (Auto) % Eos % (Auto) % Baso % (Auto) % Neut # (Auto) (1.4-6.5) K/uL Lymph # (Auto) (1.2-3.4) K/uL [place] # (Auto) (0.24-0.82) K/uL Eos # (Auto) (0-0.50) K/uL Baso # (Auto) (0-0.2) K/uL Immature Gran # (Auto) (0.00-0.02) K/uL Sodium (136-145) mmol/L Potassium (3.5-5.1) mmol/L Chloride (98-107) mmol/L Carbon Dioxide (21-32) mmol/L Anion Gap (3-11) BUN (6-23) mg/dl Creatinine (0.6-1.2) mg/dl Est Cr Clr Drug Dosing Est GFR ( Amer) ml/min Est GFR (Non-Af Amer) ml/min BUN/Creatinine Ratio (10-20) Glucose (70-99(Fasting)) mg/dl Lactate (0.4-2.0) mmol/L Calcium (8.5-10.1) mg/dl Magnesium 1.8 (1.7-2.4) mg/dl Total Bilirubin (0.2-1.0) mg/dl AST (13-39) U/L ALT (7-52) U/L Alkaline Phosphatase (34-104) U/L Troponin I High Sens 46.3 H D (0-14) pg/ml C-Reactive Protein 5.37 H (0-0.5) mg/dl B-Natriuretic Peptide 1478 H (0-100) pg/ml Total Protein (6.0-8.3) gm/dl Albumin (3.4-5.0) gm/dl Globulin (2.5-4.0) gm/dl Albumin/Globulin Ratio (0.9-2) SARS-CoV-2 (PCR) (Negative) Influenza Type A (PCR) (Neg) Influenza Type B (PCR) (Neg) RSV (RT-PCR) (Neg) 08/05/22 Range/Units 19:26 WBC (4.8-10.8) K/ul RBC (3.93-5.22) M/uL Hgb (12.0-16.0) g/dl Hct (34.1-44.9) % MCV (80.0-100.0) fL MCH (25.0-34.0) pg MCHC (32.0-36.0) g/dL RDW Std Deviation (36.4-46.3) fL RDW Coeff of Matteo (11.5-14.5) % Plt Count (130-400) K/uL MPV (9.4-12.3) fL Immature Gran % (Auto) % Neut % (Auto) % Lymph % (Auto) % [place] % (Auto) % Eos % (Auto) % Baso % (Auto) % Neut # (Auto) (1.4-6.5) K/uL Lymph # (Auto) (1.2-3.4) K/uL [place] # (Auto) (0.24-0.82) K/uL Eos # (Auto) (0-0.50) K/uL Baso # (Auto) (0-0.2) K/uL Immature Gran # (Auto) (0.00-0.02) K/uL Sodium (136-145) mmol/L Potassium (3.5-5.1) mmol/L Chloride (98-107) mmol/L Carbon Dioxide (21-32) mmol/L Anion Gap (3-11) BUN (6-23) mg/dl Creatinine (0.6-1.2) mg/dl Est Cr Clr Drug Dosing Est GFR ( Amer) ml/min Est GFR (Non-Af Amer) ml/min BUN/Creatinine Ratio (10-20) Glucose (70-99(Fasting)) mg/dl Lactate 1.3 (0.4-2.0) mmol/L Calcium (8.5-10.1) mg/dl Magnesium (1.7-2.4) mg/dl Total Bilirubin (0.2-1.0) mg/dl AST (13-39) U/L ALT (7-52) U/L Alkaline Phosphatase (34-104) U/L Troponin I High Sens (0-14) pg/ml C-Reactive Protein (0-0.5) mg/dl B-Natriuretic Peptide (0-100) pg/ml Total Protein (6.0-8.3) gm/dl Albumin (3.4-5.0) gm/dl Globulin (2.5-4.0) gm/dl Albumin/Globulin Ratio (0.9-2) SARS-CoV-2 (PCR) (Negative) Influenza Type A (PCR) (Neg) Influenza Type B (PCR) (Neg) RSV (RT-PCR) (Neg) Imaging Data Attestation: I personally reviewed and interpreted this imaging study as follows: My Impression: Chest x-rayno acute infiltrate, failure, pneumothorax seen. She has some mild increased interstitial markings and there may be a degree of CHF Radiologist's Impression: Chest X-Ray 08/05/22 15:31 XR chest 1V portable CLINICAL HISTORY: Fever, cough TECHNIQUE: Single frontal radiograph of the chest was obtained. Comparison: Comparison is made to chest radiograph 09/26/2018 FINDINGS: No lines and tubes are seen. The cardiomediastinal silhouette is normal. Prominence and cephalization of the vasculature is seen. No evidence of pleural effusion or pneumothorax. IMPRESSION: No acute abnormalities and in particular no evidence of pneumonia. Possible mild pulmonary edema. ACT 112: Negative or not required by law. Electronically signed by: Martell Webster M.D. 08/05/2022 3:[address] 08/05/22 17:43 CT head/brain wo con CLINICAL HISTORY: headache Technique: Contiguous axial CT images of the head were acquired from the base of the skull to the vertex without intravenous contrast administration. Images were viewed in brain, subdural and bone windows. Automated dose lowering techniques and/or adjustment according to patient size were utilized for this exam. Comparison: Comparison is made to CT head 05/18/2020 Findings: Areas of decreased attenuation are present in the periventricular and subcortical white matter bilaterally consistent with small vessel ischemic disease. Generalized cerebral atrophy with commensurate enlargement of the ventricles, sulci, and cisterns is also present. There is no acute intracranial hemorrhage or evidence of acute territorial infarction. No shift of the midline structures, mass effect, or extra-axial abnormalities are shown. Atherosclerotic calcifications are present in the intracranial segments of the internal carotid arteries. Air-fluid level is noted in the left maxillary sinus. The orbits appear normal. There are no acute fractures of the calvaria or scalp swelling. Impression: No acute intracranial hemorrhage, no evidence of acute territorial infarction or other acute intracranial disease process. ACT 112: Negative or not required by law. Electronically signed by: Martell Webster M.D. 08/05/2022 6:05 PM ECG Data Attestation: I personally reviewed and interpreted this ECG as follows: Indication: + weakness Rate (beats per minute): 94 Rhythm: + normal sinus ECG Intervals/blocks: + Left bundle branch block, + Normal QT and + Normal IA ECG [place]: + Normal ECG ST segments: + Normal ST segments ECG Findings: + PACs; no PVCs Comparison ECG Date: from (09/29/18) Change: no significant change MDM Narrative This patient comes in as described above. because the hospital census and back- up, I saw her in this B pod subwait initially while she was waiting for room. Her EKG shows normal sinus rhythm with occasional ectopy she has a baseline left bundle branch block, I do not think it significantly different than before. Her initial troponin is mildly elevated, I did order a second. She has no fever or white count to suggest infection or sepsis. she has no significant anemia. she has no significant,electrolyte or metabolic abnormalities, her blood work does not suggest electrolyte or metabolic abnormalities. Chest x-ray does not show any definite abnormalities. I did add some additional labs, I did order Zofran 4 mg IV which she tells me she can tolerate. I also ordered a small fluid bolus with 250 cc and she was further evaluated. Her blood pressure was running on the hypotensive side initially in the 80s however she responded to some fluid. Given the concern for possible CHF on chest x-ray and her history I was very judicious with IV fluids. She seemed to respond however. Her troponin is mildly elevated and I did a second troponin at slightly more elevated so this does concern me for possible cardiac involvement although it still in the fisher area. Her BNP was elevated which does go along with potential CHF component. Her COVID did come back positive which explains the bulk of her symptoms but I think she has underlying issues which are also contributing potentially such as CHF. She did have a lactic acid which was within normal limits blood cultures were obtained. She had a full sepsis type work-up. She is out of the window for [employer]. Given her ongoing weakness and symptoms I do think she needs to be admitted/observed and consulted the [facility] to see her in the ER for these measures Continuous cardiac monitoring: Orders placed in EMR for continuous cardiac monitoring. Upon myinterpretation patient noted to be in normal sinus rhythm with a rate of 90. Impression & Plan COVID, Weakness, Acute dehydration, Elevated troponin, Hypotension Discharge Plan Visit Data Chief Complaint: Illness ED Provider: Bethel Bryant Discharge Problem: COVID, Weakness, Acute dehydration, Elevated troponin, Hypotension Discharge Instructions Interventions: ED Discharge Assessment Last Done: 08/05/22 21:01
--- NOTE | 2022-08-05 18:07 | CT Scan Report ---
CT head/brain wo con CLINICAL HISTORY: headache Technique: Contiguous axial CT images of the head were acquired from the base of the skull to the christo nivia without intravenous contrast administration. Images were viewed in brain, subdural and [facility] . Automated dose lowering techniques and/or adjustment according to patient size were utilized for this exam. Comparison: Comparison is made to CT head 05/18/2020 Findings: Areas of decreased attenuation are present in the periventricular and subcortical white matter bilate rally consistent with small vessel ischemic disease. Generalized cerebral atrophy with commensurate e nlargement of the ventricles, sulci, and cisterns is also present. There is no acute intracranial hem orrhage or evidence of acute territorial infarction. No shift of the midline structures, mass effect, or extra-axial abnormalities are shown. Atherosclerotic calcifications are present in the intracran ial segments of the internal carotid arteries. Air-fluid level is noted in the left maxillary sinus. The orbits appear normal. There are no acute f ractures of the calvaria or scalp swelling. Impression: No acute intracranial hemorrhage, no evidence of acute territorial infarction or other acute intracra nial disease process. ACT 112: Negative or not required by law. Electronically signed by: Martell Webster M.D. 08/05/2022 6:05 PM
[2022-08-05 18:37] LABS: SARS CoV2 RNA(COVID-19) Ceph POSITIVE (Negative)
[2022-08-05] MEDS ORDERED: SODIUM CHLORIDE 0.9% 500 ML IV SCH (19:00)
--- NOTE | 2022-08-05 19:13 | History & Physical Report ---
Date of Service August 05, 2022 Assessment & Plan (1) COVID: Plan: - 1 day of symptoms: fatigue, weakness, cough, nausea, poor p.o. intake. - Fortunately patient is not hypoxic. Would not qualify for steroids or remdesivir. - Isolation precautions. - Will offer supportive care; DuoNebs, incentive spirometry for SOB, Robitussin for cough, antiemetics for nausea, vomiting. (2) Elevated troponin: Plan: - Trop mildly elevated at 34, no baseline for reference, she is without any chest pain, so this may be elevated in the setting of HOCM/HFpEF, acute illness. - Will trend troponin and update echo as last one in our system is from 2019. (3) Chronic diastolic heart failure: Plan: - Echo 2019: EF 60-65%, grade III diastolic heart failure. Upd - Currently receiving IV fluids -- caution with fluid overload. - Monitor I/Os and daily weights. - Continue metoprolol as prescribed. (4) HOCM (hypertrophic obstructive cardiomyopathy): Plan: - Received IVF in ED, BNP back at 1478. Stop IVF. - Continue metoprolol. (5) IBS (irritable bowel syndrome): Plan: - Continue Citrucel, Colace, Senna prn. (6) Rheumatoid arthritis: Plan: - Hold methotrexate (takes on Sundays), will double her 7.5 mg prednisone to 15mg split to 7.5 BID given COVID illness with hypotension on arrival. - Tylenol, tramadol prn. (7) Anxiety: Plan: - Continue lorazepam prn. (8) GERD (gastroesophageal reflux disease): Plan: - Continue Protonix. (9) Hyperlipidemia: Plan: - Continue statin. (10) Hypertension: Plan: - Continue metoprolol. Plan - Admit to medicine with telemetry. - SCDs, lovenox for VTE ppx. - Full Code. History of Present Illness Chief Complaint: general weakness, fatigue x 1 day Primary Care Provider: Aaron Wolf MD Vane Carlton is an 81-year-old female with a past medical history significant for HOCM, HFpEF, rheumatoid arthritis, and GERD who is presenting today with weakness. She has been feeling ill since yesterday complaining of general weakness, headache, nausea without any vomiting. She does generally feels fatigued as if she cannot get around her home. Not have any noticeable shortness of breath but has an occasional cough. Due to the nausea she has not been keeping up with intake. Here she is positive for COVID-19. Negative for flu and RSV. On initial presentation she was somewhat hypotensive 92/56, tachycardic w/ [place] [id number], otherwise vital signs been stable, she is not febrile or hypoxic on room air. BP is improved with IV fluids, now 120s/50s. Labs are largely unremarkable, hs trop 34, otherwise without leukocytosis or anemia, electrolytes within normal limits, renal and hepatic function at [facility]. CXR unremarkable for pneumonia, with some evidence of mild pulmonary edema. Her head CT is unremarkable. Allergies Allergy/AdvReac Type Severity Reaction Status Date / Time bee venom protein (honey bee) Allergy Intermediate BEE/WASP-NAUSEA Verified 05/18/20 15:46 AND DIZZINESS Penicillins Allergy Intermediate RASH (PER Verified 05/18/20 15:46 PT, WAS A LONG TIME AGO)AMOXICILLIN AND PCN amoxicillin [From Augmentin] Allergy Mild Unknown Verified 05/18/20 15:46 clavulanic acid Allergy Mild Unknown Verified 05/18/20 15:46 [From Augmentin] esomeprazole Allergy Mild NAUSEA Verified 05/18/20 15:46 VOMITING magnesium citrate Allergy Mild projectile Verified 05/18/20 15:46 vomitting antipyrine Allergy Unknown RASH AND Verified 05/18/20 15:46 BLISTERS benzocaine Allergy Unknown dental - Verified 05/18/20 15:46 tingling on tongue hydroxychloroquine Allergy Unknown UNKNOWN Verified 05/18/20 15:46 misoprostol Allergy Unknown UNKNOWN Verified 05/18/20 15:46 phenylephrine Allergy Unknown UNKNOWN Verified 05/18/20 15:46 pseudoephedrine Allergy Unknown UNKNOWN Verified 05/18/20 15:46 Serotonin 5HT-3 Antagonists Allergy Unknown UNKNOWN Verified 05/18/20 15:46 Sulfa (Sulfonamide Allergy Unknown UNKNOWN Verified 05/18/20 15:46 Antibiotics) citalopram AdvReac Mild GI UPSET Verified 05/18/20 15:46 clarithromycin AdvReac Mild GI UPSET Verified 05/18/20 15:46 denosumab [From Prolia] AdvReac Unknown Unknown Unverified 05/18/20 15:46 SSRI AdvReac Unknown Unknown Uncoded 05/18/20 15:46 Tympagesic ear drops AdvReac Unknown Unknown Uncoded 05/18/20 15:46 Home Medications Medication Instructions Recorded Confirmed Type acetaminophen 500 mg tablet See Rx Instructions .Route .COMPLEX 08/17/18 08/05/22 History (Tylenol Extra Strength) aspirin 81 mg tablet,delayed 81 mg PO QAM 08/17/18 08/05/22 History release atorvastatin 10 mg tablet 10 mg PO HS 08/17/18 08/05/22 History calcium carbonate 600 mg-vitamin 1 tab PO QAM 08/17/18 08/05/22 History D3 5 mcg (200 unit) capsule (Calcium 600 + D(3)) cetirizine 10 mg capsule (Zyrtec) 10 mg PO HS 08/17/18 08/05/22 History cholecalciferol (vitamin D3) 25 1,000 unit PO QA 08/17/18 08/05/22 History mcg (1,000 unit) capsule (Vitamin D3) fluticasone propionate 50 2 spray intranasal QA 08/17/18 08/05/22 History mcg/actuation nasal spray,suspension lorazepam 0.5 mg tablet 0.5 mg PO HS 08/17/18 08/05/22 History melatonin 1 mg tablet 2 mg PO HS 08/17/18 08/05/22 History metoprolol succinate 50 mg 50 mg PO AMHS 08/17/18 08/05/22 History tablet,extended release 24 hr pantoprazole 40 mg tablet,delayed 40 mg PO QA 08/17/18 08/05/22 History release prednisone 5 mg tablet 7.5 mg PO QA 08/17/18 08/05/22 History folic acid 800 mcg tablet 2,000 mcg PO .[email or web address]@QA 09/26/18 08/05/22 History methotrexate sodium 2.5 mg tablet 20 mg PO WK 08/05/22 08/05/22 History multivitamin 1 tab PO DAILY 08/05/22 08/05/22 History Past Med/Surg History Medical History Anxiety Diverticulitis GERD (gastroesophageal reflux disease) Hiatal hernia HOCM (hypertrophic obstructive cardiomyopathy) Hyperlipidemia Hypertension Hypertrophic cardiomyopathy with LVOT and LEYDA IBS (irritable bowel syndrome) Kidney stones passed on own Lactose intolerance Lumbar stenosis with neurogenic claudication Mitral valve prolapse Osteoporosis PONV (postoperative nausea and vomiting) Rheumatoid arthritis Surgical History History of appendectomy History of cataract surgery right and left History of endoscopic sinus surgery History of lumbar spinal fusion History of tonsillectomy and adenoidectomy Hx of mastoidectomy Social History Smoking Status: Never smoker Second Hand Exposure: No; Do You Dip or Chew Tobacco: No; Hx Alcohol Use: No Hx Substance Use: No Preferred Language: Lithuanian Communication Ability: Effective Visual Impairment: No Limitations Licensed Acupuncturist Required: No Beliefs That Will Affect Care: None Current Living Situation: Spouse and Personal Care Facility Current Living Situation Comment: [facility] Feels Safe at Home: Yes Safety Concerns: Feels Safe At This Time Assistive Devices: Cane, Denture - Upper, Glasses and Walker Review of Systems Review of Systems: Constitutional: fatigue, weakness, headache, anorexia x 1 day; No fever/chills, myalgias, night sweats Eyes: No diplopia, no worsening or blurred vision ENT: normal hearing, no trouble swallowing Respiratory:cough x 1 day; no sputum, dyspnea at rest or on exertion Cardiovascular: No chest pain, tightness or palpitations Abdomen: nausea without pain, vomiting, diarrhea or constipation : Denies dysuria, hematuria, increased urgency/frequency, urinary retention Musculoskeletal: No joint pain, calf pain, swelling Neurologic: No weakness, numbness/tingling, or balance problems Psychiatric: No anxiety or depression Skin: No rash or itch Physical Exam Physical Exam: General: awake, alert, no apparent distress, appears fatigued Head: Normocephalic, atraumatic ENT: PERRL, EOMI, no pharyngeal exudate, mucous membranes moist Chest: Clear to auscultation, on room air, no adventitious breath sounds Cardiac: 2/6 systolic murmur present; Regular rate and rhythm, no murmur, no JVD, normal peripheral pulses, good capillary refill Abdominal: NABS x 4 quadrants, soft, nontender to palpation, no rebound, guarding or tenderness Extremities: Normal inspection, no peripheral edema or erythema, calfs nontender to palpation Psych: Normal mood and affect Neuro: AAO x 3, strength intact bilaterally and rated 5/5, no motor deficits, speech is clear, no peripheral sensory deficits Skin: no rash or erythema Results & Data Results & Data ([facility]) Vital Signs (Past 12 Hours) Vital Signs Temp Pulse Pulse Resp BP BP Pulse Ox 08/05/22 18:31 128/57 L 08/05/22 18:31 97 H 22 128/57 L 98 08/05/22 18:30 95 H 20 93 08/05/22 18:26 97 H 23 99 08/05/22 18:26 136/67 08/05/22 18:15 100 H 18 97 08/05/22 17:44 100 H 84/58 L 97 08/05/22 15:01 36.4 C L 105 H 22 92/56 L 96 O2 Del Method 08/05/22 18:31 08/05/22 18:31 08/05/22 18:30 08/05/22 18:26 08/05/22 18:26 08/05/22 18:15 08/05/22 17:44 Room Air 08/05/22 15:01 Room Air Laboratory Results Abnormal lab results 08/05/22 08/05/22 08/05/22 Range/Units 15:20 15:20 15:20 RDW Std Deviation 53.1 H (36.4-46.3) fL RDW Coeff of Matteo 15.8 H (11.5-14.5) % Neut # (Auto) 8.63 H (1.4-6.5) K/uL Lymph # (Auto) 0.26 L (1.2-3.4) K/uL [place] # (Auto) 0.87 H (0.24-0.82) K/uL Immature Gran # (Auto) 0.04 H (0.00-0.02) K/uL Sodium 135 L (136-145) mmol/L Glucose 117 H (70-99(Fasting)) mg/dl Troponin I High Sens 34.5 H (0-14) pg/ml SARS-CoV-2 (PCR) POSITIVE A* (Negative) Diagnostic Findings Chest X-Ray 08/05/22 15:31 XR chest 1V portable CLINICAL HISTORY: Fever, cough TECHNIQUE: Single frontal radiograph of the chest was obtained. Comparison: Comparison is made to chest radiograph 09/26/2018 FINDINGS: No lines and tubes are seen. The cardiomediastinal silhouette is normal. Prominence and cephalization of the vasculature is seen. No evidence of pleural effusion or pneumothorax. IMPRESSION: No acute abnormalities and in particular no evidence of pneumonia. Possible mild pulmonary edema. ACT 112: Negative or not required by law. Electronically signed by: Martell Webster M.D. 08/05/2022 3:[address] 08/05/22 17:43 CT head/brain wo con CLINICAL HISTORY: headache Technique: Contiguous axial CT images of the head were acquired from the base of the skull to the vertex without intravenous contrast administration. Images were viewed in brain, subdural and bone windows. Automated dose lowering techniques and/or adjustment according to patient size were utilized for this exam. Comparison: Comparison is made to CT head 05/18/2020 Findings: Areas of decreased attenuation are present in the periventricular and subcortical white matter bilaterally consistent with small vessel ischemic disease. Generalized cerebral atrophy with commensurate enlargement of the ventricles, sulci, and cisterns is also present. There is no acute intracranial hemorrhage or evidence of acute territorial infarction. No shift of the midline structures, mass effect, or extra-axial abnormalities are shown. Atherosclerotic calcifications are present in the intracranial segments of the internal carotid arteries. Air-fluid level is noted in the left maxillary sinus. The orbits appear normal. There are no acute fractures of the calvaria or scalp swelling. Impression: No acute intracranial hemorrhage, no evidence of acute territorial infarction or other acute intracranial disease process. ACT 112: Negative or not required by law. Electronically signed by: Martell Webster M.D. 08/05/2022 6:05 PM ECG Additional Comments: Poor data quality, interpretation may be adversely affected Sinus rhythm with Premature atrial complexes Possible Left atrial enlargement Left axis deviation Left bundle branch block Abnormal ECG When compared with ECG of 29-SEP-2018 10:26, ST more depressed Lateral leads. Code Status & VTE Plan Code Status Full Code. Supervising Physician Co-Signing Physician Notes Attending addendum: I have physically seen this patient, have supervised the EUNICE's activities, and agree with the H&P unless as otherwise noted. Assessment and Plan: COVID-19 infection without hypoxia- Primary symptoms are fatigue, weakness, nonproductive cough, nausea and decreased oral intake Placed on routine COVID precautions Albuterol HFA 2 puffs 4 times daily, every 2 hours as needed DuoNebs every 2 hours as needed Incentive spirometry Guaifenesin extended release 12 mg p.o. twice daily Zofran 4 mg IV every 6 hours as needed Elevated troponin/HFpEF/hypertrophic cardiomyopathy/hypertension- Highly sensitive troponin mildly elevated at 34.5 The patient will be admitted to telemetry for serial cardiac enzymes, serial EKG's, cardiac rhythm monitoring and a 2-D echocardiogram with Dopplers. Continue routine medications: Metoprolol succinate 50 mg twice daily with hold parameters, and aspirin Rheumatoid arthritis/adrenal insufficiency- Stress dose steroids from 7.5 mg daily to twice daily GERD- Continue pantoprazole 40 mg daily Hyperlipidemia- Continue atorvastatin 10 mg at bedtime Remaining orders and notations as noted PG Care Time/CCT Total # of Minutes Spent Total Time Spent with Patient: Total time spent is greater than 50% in coordination of care (as documented) at patient's floor/unit and/or counseling patient: Coding Level of Care Code 11622 INT INP/OBS CARE 3/75MIN Diagnoses COVID U07.1 Elevated troponin R74.8 Chronic diastolic heart failure I50.32 HOCM (hypertrophic obstructive cardiomyopathy) I42.1 IBS (irritable bowel syndrome) K58.9 Rheumatoid arthritis M06.9 Anxiety F41.9 GERD (gastroesophageal reflux disease) K21.9 Hyperlipidemia E78.5 Hypertension I10
[2022-08-05 20:10] LABS: C Reactive Protein 5.37 mg/dl (0-0.5); Magnesium 1.8 mg/dl (1.7-2.4)
[2022-08-05] MEDS ORDERED: diphenhydrAMINE Capsule 25 MG CAP PO PRN (21:00)
[2022-08-05] MEDS ORDERED: CIPRO 0.3%/DEXAMETHASONE 0.1% OTIC SUSP 7.5ML OT PRN (21:00)
[2022-08-05] MEDS ORDERED: ALUMINUM/MAGNESIUM SUSP 30 ML UDC PO PRN (21:00)
[2022-08-05] MEDS ORDERED: PYRIDOXINE HCL 50 MG TAB PO PRN (21:00)
[2022-08-05] MEDS ORDERED: LACTASE 3000 UNIT TAB PO PRN (21:00)
[2022-08-05] MEDS ORDERED: LORazepam 0.5 MG TAB PO PRN (21:00)
[2022-08-05] MEDS ORDERED: traMADol HCL 50 MG TABLET PO PRN (21:00)
[2022-08-05] MEDS ORDERED: ACETAMINOPHEN 500 MG TAB PO PRN (21:29)
[2022-08-06] MEDS: ATORVASTATIN 10 MG TAB PO SCH ×2 (00:02→21:40)
[2022-08-06] MEDS: CETIRIZINE HCL 10 MG TABLET PO SCH ×2 (00:03→21:40)
[2022-08-06] MEDS: CALCIUM CARBONATE 500 MG CHEWABLE TAB PO SCH ×2 (00:03→21:46)
[2022-08-06] MEDS: DOCUSATE SODIUM/SENNA 50/8.6MG TAB PO SCH ×3 (00:04→21:41)
[2022-08-06] MEDS: METOPROLOL SUCC 50MG EXT REL TAB PO SCH ×3 (00:04→21:40)
[2022-08-06] MEDS: MELATONIN 3 MG TAB PO SCH ×2 (00:04→21:40)
[2022-08-06] MEDS: predniSONE 5 MG TAB PO SCH ×3 (00:05→21:40)
[2022-08-06] MEDS: Patient's HEIGHT &/or WEIGHT Needed SCH ×2 (00:06→00:21)
[2022-08-06] MEDS: ACETAMINOPHEN 500 MG TAB PO PRN ×3 (00:07→21:41)
[2022-08-06] MEDS ORDERED: Nursing to Pharmacy Communication SCH (00:30)
[2022-08-06 03:40] LABS: BUN Creatinine Ratio 18.8 (10-20); C Reactive Protein 7.48 mg/dl (0-0.5); Calcium 8.7 mg/dl (8.5-10.1); Creatinine Clr Calc Pharmacy 40.3 ml/min; Est GFR (African American) 80.7 ml/min; Est GFR (Non-African American) 69.6 ml/min; Magnesium 1.9 mg/dl (1.7-2.4); Potassium 3.6 mmol/L (3.5-5.1)
[2022-08-06 03:48] LABS: Basophils # (auto) 0.01 K/uL (0-0.2); Basophils % (auto) 0.1 %; Hematocrit (blood only) 36.6 % (34.1-44.9); Hemoglobin 11.9 g/dl (12.0-16.0); Immature Granulocytes # (auto) 0.02 K/uL (0.00-0.02); Immature Granulocytes % (auto) 0.2 %; Lymphocytes # (auto) 0.43 K/uL (1.2-3.4); Lymphocytes % (auto) 5.1 %; Mean Corpuscular Hemoglobin 30.2 pg (25.0-34.0); Mean Corpuscular Hgb Conc 32.5 g/dL (32.0-36.0); Mean Corpuscular Volume 92.9 fL (80.0-100.0); Monocytes # (auto) 0.72 K/uL (0.24-0.82); Monocytes % (auto) 8.5 %; Neutrophils # (auto) 7.32 K/uL (1.4-6.5); Neutrophils % (auto) 86.1 %; Platelet Estimate Normal (Normal); RBC Morphology Unremarkable; RDW Coefficient of Variation 15.9 % (11.5-14.5); RDW Standard Deviation 53.7 fL (36.4-46.3); Red Blood Count 3.94 M/uL (3.93-5.22)
[2022-08-06] MEDS: PANTOprazole 40 MG TAB PO SCH (09:40)
[2022-08-06] MEDS: ASPIRIN 81 MG ECTAB PO SCH (09:40)
[2022-08-06] MEDS: FOLIC ACID 400 MCG TAB PO SCH (09:40)
[2022-08-06] MEDS: CALCIUM 600MG + VIT D 400 IU TAB PO SCH ×2 (09:41→21:40)
[2022-08-06] MEDS: CHOLECALCIFEROL 1,000 UNITS 25 MCG TAB PO SCH (09:41)
[2022-08-06] MEDS: CEROVITE ADV FORMULA TAB PO SCH (09:42)
[2022-08-06] MEDS: FLUTICASONE PROPIONATE NA SPR 16 GM BTL SCH (09:43)
[2022-08-06] MEDS: METHYLCELLULOSE POWDER 454 GM JAR PO SCH (10:42)
[2022-08-06] MEDS: DOCUSATE SODIUM 100 MG CAP PO SCH ×2 (10:42→18:14)
[2022-08-06] MEDS: HEPARIN SOD 5,000 UNIT/0.5 ML VIAL SQ SCH ×2 (10:43→21:42)
[2022-08-06] MEDS ORDERED: REMDESIVIR 200 MG in SODIUM CHLORIDE 0.9% 210 ML IV STA (10:53)
--- NOTE | 2022-08-06 17:00 | XCELERA ---
[id number] \\[id number]_[id number]
--- NOTE | 2022-08-06 21:15 | Hospitalist Progress Note ---
Date of Service August 06, 2022 Assessment & Plan (1) COVID: Plan: Patient is at high risk of disease progression due to steroid-dependent RA, extensive cardiac disease (hypertrophic cardiomyopathy, valvular heart disease), etc. She does have b/l basilar rales and her cxr is abnormal - uncertain if her lung findings are chronic or acute. Low threshold for dexamethasone (currently on low-dose prednisone only). I do believe there is a role for Remdesivir and thus will start such today - 200mg today, followed by 100mg tomorrow & thereafter. Check Cr, AST, ALT in am. Cont airborne precautions. (2) Thrombocytopenia: Plan: 2nd to RA? 2nd to folate or B12 def? reactive - 2nd to #1? repeat CBC am. check B12/folate am. (3) Elevated troponin: Plan: no evidence of ACS. this likely is 2nd to myocardial demand ischemia in setting of COVID infection. 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 this may represent progressive calcification. can't exclude SBE but blood cx's negative to date. she follows with Dr Kylie [facility]. no evidence of decompensated CHF. (5) Mitral valve prolapse: Plan: h/o echo completed today - significant mitral valve disease with calcification, stenosis, and regurgitation. HCOM - known diagnosis. (6) Chronic diastolic heart failure: Plan: compensated preserved EF MV disease as above (7) HOCM (hypertrophic obstructive cardiomyopathy): Plan: Cont metoprolol succinate 50mg BID Avoid volume contraction (8) IBS (irritable bowel syndrome): Plan: Continue Citrucel, Colace, Senna prn. (9) Rheumatoid arthritis: Plan: Hold methotrexate (takes on Sundays) Typically takes prednisone 7.5mg daily This dose doubled to 7.5mg BID for "Stress dose" purposes CXR findings - chronic, due to "rheumatoid lung" ? acute? other? (10) Anxiety: Plan: Continue lorazepam TID prn (11) GERD (gastroesophageal reflux disease): Plan: Continue Protonix (12) Hyperlipidemia: Plan: Continue statin Follow ast and alt due to Remdesivir usage (13) Hypertension: Plan: Continue metoprolol succinate (14) Chronic kidney disease, stage 3a: Plan: baseline CrCl 50s repeat BMP am (15) DVT prophylaxis: Plan: heparin 5000 BID Plan PT, OT evals requested attempted to call pt's by phone -- no answer, busy signal will try to call again tomorrow Admission and Anticipated Discharge Date Admission Date: August 05, 2022 Subjective patient overall feels better today than yesterday she does endorse a cough - mainly dry minimal dyspnea on exertion; no dyspnea at rest had nausea yesterday; this is improved no vomiting, no diarrhea denies chest pain tele overnight wnl she reports that her also likely has COVID - was sick about a week before her - and they live in [place] Review of Systems Review of Systems: gen - no fevers or chills; appetite fair cv - no cp, no orthopnea pulm - no sputum GI - no abd pain Physical Exam Physical Exam: gen - very thin, NAD, no respiratory distress; occasional cough neck - no JVD back - kyphotic mouth - MM slightly dry heart - RRR, s1 s2, 3/6 holosystolic murmur heard LSB and in the L axillae lungs - b/l basilar fine rales, no increased work of breathing abd - soft NT ND BS+ ext - no edema, pulses 2+ b/l psych - a/o x 3 Results & Data Results & Data ([facility]) Vital Signs (Past 12 Hours) Vital Signs Temp Pulse Pulse Resp BP BP Pulse Ox 08/06/22 19:37 36.8 C 65 18 119/64 96 08/06/22 18:00 67 08/06/22 18:00 08/06/22 14:00 66 08/06/22 12:11 36.8 C 69 18 103/63 97 O2 Del Method O2 Flow Rate 08/06/22 19:37 Room Air 08/06/22 18:00 08/06/22 18:00 Nasal Cannula 2 08/06/22 14:00 08/06/22 12:11 Room Air Laboratory Results Laboratory Results - last 24 hr 08/06/22 08/06/22 08/06/22 02:42 02:42 02:42 WBC 8.50 RBC 3.94 Hgb 11.9 L Hct 36.6 MCV 92.9 MCH 30.2 MCHC 32.5 RDW Std Deviation 53.7 H RDW Coeff of Matteo 15.9 H Plt Count MPV Not Reportable Immature Gran % (Auto) 0.2 Neut % (Auto) 86.1 Lymph % (Auto) 5.1 Bureau % (Auto) 8.5 Eos % (Auto) 0.0 Baso % (Auto) 0.1 Neut # (Auto) 7.32 H Lymph # (Auto) 0.43 L Bureau # (Auto) 0.72 Eos # (Auto) 0.00 Baso # (Auto) 0.01 Immature Gran # (Auto) 0.02 Platelet Estimate Normal Plt Count ,Citrate RBC Morphology Unremarkable Sodium 135 L Potassium 3.6 Chloride 102 Carbon Dioxide 26 Anion Gap 7 BUN 15 Creatinine 0.80 Est Cr Clr Drug Dosing 40.3 Est GFR ( Amer) 80.7 Est GFR (Non-Af Amer) 69.6 BUN/Creatinine Ratio 18.8 Glucose 119 H Calcium 8.7 Magnesium 1.9 Troponin I High Sens 68.8 H* D C-Reactive Protein 7.48 H 08/06/22 08/06/22 08/06/22 05:33 05:53 09:38 WBC RBC Hgb Hct MCV MCH MCHC RDW Std Deviation RDW Coeff of Matteo Plt Count MPV Immature Gran % (Auto) Neut % (Auto) Lymph % (Auto) Bureau % (Auto) Eos % (Auto) Baso % (Auto) Neut # (Auto) Lymph # (Auto) Bureau # (Auto) Eos # (Auto) Baso # (Auto) Immature Gran # (Auto) Platelet Estimate Plt Count ,Citrate 110 L RBC Morphology Sodium Potassium Chloride Carbon Dioxide Anion Gap BUN Creatinine Est Cr Clr Drug Dosing Est GFR ( Amer) Est GFR (Non-Af Amer) BUN/Creatinine Ratio Glucose Calcium Magnesium Troponin I High Sens 42.9 H D C-Reactive Protein 08/06/22 15:41 WBC RBC Hgb Hct MCV MCH MCHC RDW Std Deviation RDW Coeff of Matteo Plt Count MPV Immature Gran % (Auto) Neut % (Auto) Lymph % (Auto) Bureau % (Auto) Eos % (Auto) Baso % (Auto) Neut # (Auto) Lymph # (Auto) Bureau # (Auto) Eos # (Auto) Baso # (Auto) Immature Gran # (Auto) Platelet Estimate Plt Count ,Citrate RBC Morphology Sodium Potassium Chloride Carbon Dioxide Anion Gap BUN Creatinine Est Cr Clr Drug Dosing Est GFR ( Amer) Est GFR (Non-Af Amer) BUN/Creatinine Ratio Glucose Calcium Magnesium Troponin I High Sens 35.7 H C-Reactive Protein PG Care Time/CCT Total # of Minutes Spent Total Time Spent with Patient: Total time spent is greater than 50% in coordination of care (as documented) at patient's floor/unit and/or counseling patient: Coding Level of Care Code 45327 SUB INP/OBS CARE 3/50MIN Diagnoses COVID U07.1 Thrombocytopenia D69.6 Elevated troponin R74.8 Mitral valve mass I05.8 Mitral valve prolapse I34.1 Chronic diastolic heart failure I50.32 HOCM (hypertrophic obstructive cardiomyopathy) I42.1 IBS (irritable bowel syndrome) K58.9 Rheumatoid arthritis M06.9 Anxiety F41.9 GERD (gastroesophageal reflux disease) K21.9 Hyperlipidemia E78.5 Hypertension I10 Chronic kidney disease, stage 3a N18.31 DVT prophylaxis Z29.9
--- NOTE | 2022-08-06 21:25 | Electrocardiogram Report ---
Test Reason : Blood Pressure : / mmHG Vent. Rate : 094 BPM Atrial Rate : 094 BPM P-R Int : 156 ms QRS Dur : 132 ms QT Int : 392 ms P-R-T Axes : 065 -33 121 degrees QTc Int : 490 ms Poor data quality, interpretation may be adversely affected Sinus rhythm with Premature atrial complexes Possible Left atrial enlargement Left axis deviation Left bundle branch block Abnormal ECG When compared with ECG of 29-SEP-2018 10:26, ST more depressed Lateral leads Confirmed by Rosendo Park ([id number]) on 08/06/2022 9:24:39 PM Referred By: Confirmed By:Rosendo Park
[2022-08-06] MEDS: ARTIFICIAL TEARS OP SCH (21:46)
[2022-08-06 23:55] LABS: Appearance Urine Clear (Clear); Bacteria Urine Automated Negative (Negative); Bilirubin Urine Negative (Negative); Blood Urine 2+ (Negative); Cast Urine Automated 0 /lpf (0-5); Color Urine Yellow; Epithelial Cell Urine Auto 0-5 /lpf (0-5); Glucose Urine UA Negative (Negative); Ketones Urine Negative (Negative); Leukocyte Esterase Urine Negative (Negative); Nitrite Urine Negative (Negative); Protein Urine Negative (Negative); Specific Gravity Urine 1.009 (1.000-1.030); Urobilinogen Urine Negative (Negative)
[2022-08-07] MEDS: guaiFENesin/DEXTROM SYRUP 200MG/20MG 10ML UDC PO PRN ×2 (01:14→09:26)
[2022-08-07 08:58] LABS: BUN Creatinine Ratio 24.3 (10-20); C Reactive Protein 4.61 mg/dl (0-0.5); Calcium 8.6 mg/dl (8.5-10.1); Est GFR (African American) 94.8 ml/min; Est GFR (Non-African American) 81.8 ml/min; Potassium 3.9 mmol/L (3.5-5.1)
[2022-08-07 09:01] LABS: Basophils # (auto) 0.01 K/uL (0-0.2); Basophils % (auto) 0.3 %; Hematocrit (blood only) 34.1 % (34.1-44.9); Hemoglobin 11.4 g/dl (12.0-16.0); Immature Granulocytes # (auto) 0.01 K/uL (0.00-0.02); Immature Granulocytes % (auto) 0.3 %; Lymphocytes # (auto) 1.05 K/uL (1.2-3.4); Lymphocytes % (auto) 27.3 %; Mean Corpuscular Hemoglobin 30.6 pg (25.0-34.0); Mean Corpuscular Hgb Conc 33.4 g/dL (32.0-36.0); Mean Corpuscular Volume 91.4 fL (80.0-100.0); Monocytes # (auto) 0.63 K/uL (0.24-0.82); Monocytes % (auto) 16.4 %; Neutrophils # (auto) 2.15 K/uL (1.4-6.5); Neutrophils % (auto) 55.7 %; RDW Coefficient of Variation 15.8 % (11.5-14.5); RDW Standard Deviation 51.3 fL (36.4-46.3); Red Blood Count 3.73 M/uL (3.93-5.22); White Blood Count 3.85 K/ul (4.8-10.8)
[2022-08-07 09:18] LABS: Alanine Aminotransferase 15 U/L (7-52); Aspartate Aminotransferase 28 U/L (13-39)
[2022-08-07] MEDS: METHYLCELLULOSE POWDER 454 GM JAR PO SCH (09:21)
[2022-08-07] MEDS: DOCUSATE SODIUM 100 MG CAP PO SCH (09:22)
[2022-08-07] MEDS: FLUTICASONE PROPIONATE NA SPR 16 GM BTL SCH (09:23)
[2022-08-07] MEDS: ARTIFICIAL TEARS OP SCH (09:23)
[2022-08-07 09:24] LABS: Vitamin B12 633 pg/ml (180-914)
[2022-08-07] MEDS: ACETAMINOPHEN 500 MG TAB PO PRN (09:24)
[2022-08-07] MEDS: predniSONE 5 MG TAB PO SCH (09:25)
[2022-08-07] MEDS: HEPARIN SOD 5,000 UNIT/0.5 ML VIAL SQ SCH (09:26)
[2022-08-07] MEDS: CEROVITE ADV FORMULA TAB PO SCH (09:26)
[2022-08-07] MEDS: PANTOprazole 40 MG TAB PO SCH (09:26)
[2022-08-07] MEDS: CALCIUM 600MG + VIT D 400 IU TAB PO SCH (09:26)
[2022-08-07] MEDS: METOPROLOL SUCC 50MG EXT REL TAB PO SCH (09:26)
[2022-08-07] MEDS: FOLIC ACID 400 MCG TAB PO SCH (09:27)
[2022-08-07] MEDS: ASPIRIN 81 MG ECTAB PO SCH (09:27)
[2022-08-07] MEDS: CHOLECALCIFEROL 1,000 UNITS 25 MCG TAB PO SCH (09:27)
--- NOTE | 2022-08-07 11:16 | XRay Report ---
XR chest 1V portable HISTORY: COVID+; eval for pneumonia COMPARISON: Chest 08/05/2022. FINDINGS: No focal lung consolidations to suggest a pneumonia. No evidence for pulmonary edema. The h eart is mildly enlarged. This remains unchanged. Moderate to severe S-shaped scoliosis again noted. P artially visualized lumbar spinal fusion hardware. IMPRESSION: No significant change compared to the prior study. No acute process. ACT 112: Negative or not required by law. Electronically signed by: Derrick Jimenez M.D. 08/07/2022 11:15 AM
[2022-08-07] MEDS: DOCUSATE SODIUM/SENNA 50/8.6MG TAB PO SCH (11:18)
--- NOTE | 2022-08-07 11:58 | Discharge Summary ---
Date of Service August 07, 2022 Admission HPI Per Admitting Provider Vane Carlton is an 81-year-old female with a past medical history significant for HOCM, HFpEF, rheumatoid arthritis, and GERD who is presenting today with weakness. She has been feeling ill since yesterday complaining of general weakness, headache, nausea without any vomiting. She does generally feels fatigued as if she cannot get around her home. Not have any noticeable shortness of breath but has an occasional cough. Due to the nausea she has not been keeping up with intake. Here she is positive for COVID-19. Negative for flu and RSV. On initial presentation she was somewhat hypotensive 92/56, tachycardic w/ [place] [id number], otherwise vital signs been stable, she is not febrile or hypoxic on room air. BP is improved with IV fluids, now 120s/50s. Labs are largely unremarkable, hs trop 34, otherwise without leukocytosis or anemia, electrolytes within normal limits, renal and hepatic function at baseline. CXR unremarkable for pneumonia, with some evidence of mild pulmonary edema. Her head CT is unremarkable. Principal Diagnosis COVID-19, generalized weakness Thrombocytopenia Discharge Exam gen - very thin, NAD, no respiratory distress; occasional cough neck - no JVD back - kyphotic heart - RRR, s1 s2, 3/6 holosystolic murmur heard LSB and in the L axillae, pectus excavatum lungs - b/l basilar fine rales, no increased work of breathing abd - soft NT ND BS+ ext - no edema, pulses 2+ b/l psych - a/o x 3 Discharge Data Allergies Allergy/AdvReac Type Severity Reaction Status Date / Time bee venom protein (honey bee) Allergy Intermediate BEE/WASP-NAUSEA Verified 05/18/20 15:46 AND DIZZINESS Penicillins Allergy Intermediate RASH (PER Verified 05/18/20 15:46 PT, WAS A LONG TIME AGO)AMOXICILLIN AND PCN amoxicillin [From Augmentin] Allergy Mild Unknown Verified 05/18/20 15:46 clavulanic acid Allergy Mild Unknown Verified 05/18/20 15:46 [From Augmentin] esomeprazole Allergy Mild NAUSEA Verified 05/18/20 15:46 VOMITING magnesium citrate Allergy Mild projectile Verified 05/18/20 15:46 vomitting antipyrine Allergy Unknown RASH AND Verified 05/18/20 15:46 BLISTERS benzocaine Allergy Unknown dental - Verified 05/18/20 15:46 tingling on tongue hydroxychloroquine Allergy Unknown UNKNOWN Verified 05/18/20 15:46 misoprostol Allergy Unknown UNKNOWN Verified 05/18/20 15:46 phenylephrine Allergy Unknown UNKNOWN Verified 05/18/20 15:46 pseudoephedrine Allergy Unknown UNKNOWN Verified 05/18/20 15:46 Serotonin 5HT-3 Antagonists Allergy Unknown UNKNOWN Verified 05/18/20 15:46 Sulfa (Sulfonamide Allergy Unknown UNKNOWN Verified 05/18/20 15:46 Antibiotics) citalopram AdvReac Mild GI UPSET Verified 05/18/20 15:46 clarithromycin AdvReac Mild GI UPSET Verified 05/18/20 15:46 denosumab [From Prolia] AdvReac Unknown Unknown Unverified 05/18/20 15:46 SSRI AdvReac Unknown Unknown Uncoded 05/18/20 15:46 Tympagesic ear drops AdvReac Unknown Unknown Uncoded 05/18/20 15:46 Consultations 08/05/22 19:11 ED Decision to Admit Stat Ordered Studies 08/05/22 17:43 CT head/brain wo con Stat Hospital Course (1) COVID: Presented with 1 day of symptoms, low-grade fever, generalized weakness, nausea and headache Now significantly improved. She is not needing any oxygen, no evidence of pneumonia on chest x-ray She is ambulating independently in the room without weakness. Her nausea is resolved and she is eating her usual amounts. Her headache is also resolved. No further fevers. She was started on Remdesivir on hospital day #2 and received 1 dose prior to discharge. She does not need to finish out this course. Her prednisone was increased to 7.5 Mg p.o. twice daily and should continue this for 3 more days for stress dose steroids and then return to her usual dose of 7.5 mg once daily after that. She does have b/l basilar rales and her cxr is abnormal - uncertain if her lung findings are chronic or acute. Much improved and can return home. (2) Thrombocytopenia: 2nd to RA? B12 levels normal Thrombocytopenia and leukopenia could be secondary to COVID-19 however she does not typically have leukopenia so that is more acute likely secondary to COVID-19 She does have a history of thrombocytopenia going back to 2019, however those were not drawn on citrate tubes. She did have clumping here and yet even on citrate tube, her platelets were low at 94-110 She has no evidence of hepatosplenomegaly or history of cirrhosis as per imaging within the last year. She has only a very mild anemia and it is normocytic. B12 and folate levels normal Consider follow-up with hematology as an outpatient (3) Elevated troponin: no evidence of ACS. this likely is 2nd to myocardial demand ischemia in setting of COVID infection. 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 Measuring 1.9 cm Also with moderate mitral stenosis and mild to moderate MR although difficult to assess in the setting of severe MAC this may represent progressive calcification. can't exclude SBE but blood cx's negative to date. she follows with Dr Espinal - [facility]. I discussed her findings on echocardiogram with Dr. Espinal who believes this is chronic no evidence of decompensated CHF. Follow-up with cardiology as an outpatient (5) Mitral valve prolapse: As above, follows with cardiology [facility] - known diagnosis. (6) Chronic diastolic heart failure: compensated preserved EF MV disease as above (7) HOCM (hypertrophic obstructive cardiomyopathy): Cont metoprolol succinate 50mg BID Avoid volume contraction (8) IBS (irritable bowel syndrome): Continue Citrucel, Colace, Senna prn. (9) Rheumatoid arthritis: Hold methotrexate (takes on Sundays) but can restart on discharge as she is much improved Typically takes prednisone 7.5mg daily This dose doubled to 7.5mg BID for "Stress dose" purposes for 3 more days after discharge CXR findings - chronic, due to "rheumatoid lung" ? acute? other? Consider follow-up with pulmonology as an outpatient if desired Does have chronic dyspnea on exertion which may be related to her rheumatologic disease versus MSK given scoliosis (10) Anxiety: Continue lorazepam as needed No acute issues (11) GERD (gastroesophageal reflux disease): Continue Protonix (12) Hyperlipidemia: Continue statin (13) Hypertension: Continue metoprolol succinate Blood pressures well controlled (14) Chronic kidney disease, stage 3a: Renal function at baseline (15) DVT prophylaxis: heparin 5000 BID Plan PT, OT evals completed and recommend return home Patient is stable for discharge back to independent living at [facility]. Transportation will be provided. The briefcase sewer was able to get in touch with the Ale who has been doing daily well checks on the patient's who is also ill with COVID Total Time Total Time Spent Total Time Spent (In Minutes): 35 min Discharge Plan Discharge Items Patient Disposition: Personal [facility] Reason For Visit: COVID/GENERAL WEAKNESS Discharge Diagnosis: COVID-19, generalized weakness Activity: As commented below Bathing: No limitations Exercise/Sports: Gradually increase as tolerated Non-emergency contact: Primary Care Provider Call non-emergency contact if: you have any medication questions, your symptoms worsen and you have a fever Follow-up/Referrals: Aaorn Wolf MD [Primary Care Provider] - (PCP office will call you to schedule this follow up appointment.) Diet: Low Sodium (2gm) and Lactose Intolerant Addtl Attending Provider Instructions: Please take your prednisone 7.g mg twice a day x 3 days then resume your usual dosing of 7.5mg once daily upon return to home. Fortunately you are doing much better and should continue to improve after discharge. If you have a return of worsening symptoms, please call your doctor. You should remain on contact isolation in your home for another week. You do have a calcification growth on your mitral valve and your Nutritional Services Host is aware of this and follows you as an outpatient. Your platelet count is slightly low but this is chronic due to platelet clumping. COVID can also make your platelet count slightly low.. Please follow-up with your primary care physician regarding this matter. You do have some chronic appearing changes to your lungs on chest x-ray and on examination. Please follow-up with your primary care physician regarding this and consider a referral to a building principal/lung specialist as an outpatient. Pending Studies at Discharge: Yes Studies:: Final blood culture results-no growth to date Stand-Alone Forms: My [employer], Smoking Cessation Skilled Items Patient informed of condition?: Yes DNR: No Discharge Level of Care: Other Communicable Disease: Yes (COVID-19) Discharge Prognosis: Improving Lines: None Urinary Catheter: No Medications and DC Order Prescriptions: Continued atorvastatin 10 mg Tablet 10 mg PO HS metoprolol succinate 50 mg Tablet Extended Release 24 Hr 50 mg PO AMHS prednisone 5 mg Tablet 7.5 mg PO QAM Rx Instructions: 1 & 1/2 tablet aspirin 81 mg Tablet,Delayed Release (Dr/Ec) 81 mg PO QAM acetaminophen [Tylenol Extra Strength] 500 mg Tablet See Rx Instructions .ROUTE .COMPLEX Rx Instructions: 1000mg morning, 500mg at lunch, 500mg at 1800, and 500mg at midnight lorazepam 0.5 mg Tablet 0.5 mg PO HS pantoprazole 40 mg Tablet,Delayed Release (Dr/Ec) 40 mg PO QAM cholecalciferol (vitamin D3) [Vitamin D3] 1,000 unit Capsule 1,000 unit PO QAM Calcium 600 + D(3) 600 mg calcium- 200 unit Capsule 1 tab PO QAM Zyrtec 10 mg Capsule 10 mg PO HS fluticasone propionate 50 mcg/actuation [place],Suspension 2 spray INTRANASAL QAM melatonin 1 mg Tablet 2 mg PO HS folic acid 800 mcg Tablet 2,000 mcg PO .[email or web address] Rx Instructions: TAKES 2 1/2 TABS. methotrexate sodium 2.5 mg Tablet 20 mg PO WK Rx Instructions: sundays multivitamin Tablet 1 tab PO DAILY Discharge Orders: Discharge Order (Routine); Ordered 08/07/22 Ordered By: Mica Saleem/Other Patient Handouts: Disinfecting Your Home of COVID-19, COVID-19 Home Care, Heart Valve Problems, Infection Preventing Spread Admission Data Admit Date/Time: 08/05/22 19:33 Attending Provider: Mica Rai Admit Provider: Armando Cooper Primary Care Provider: Aaron Wolf Other Providers: Armando Cooper Other Interventions: Discharge Summary Assessment (RN) Last Done: 08/07/22 11:50 Coding Level of Care Code HOSP INP/OBS DISCH >30 MIN Diagnoses COVID U07.1 Thrombocytopenia D69.6 Elevated troponin R74.8 Mitral valve mass I05.8 Mitral valve prolapse I34.1 Chronic diastolic heart failure I50.32 HOCM (hypertrophic obstructive cardiomyopathy) I42.1 IBS (irritable bowel syndrome) K58.9 Rheumatoid arthritis M06.9 Anxiety F41.9 GERD (gastroesophageal reflux disease) K21.9 Hyperlipidemia E78.5 Hypertension I10 Chronic kidney disease, stage 3a N18.31 DVT prophylaxis Z29.9
[2022-08-07] MEDS ORDERED: REMDESIVIR 100 MG in SODIUM CHLORIDE 0.9% 230 ML IV SCH (12:00)
== END 2022-08-07 12:15 | disposition home or self-care (01) | DRG 178 ==
LOC: ED 14:56 → SUATTDRO 19:33 → EDINP 19:33 → 2N 21:01

== ENCOUNTER 2023-12-06 11:04 | Inpatient (IN) ==
--- NOTE | 2023-12-06 11:27 | Emergency Department Note ---
Impression & Plan Precordial chest pain, Elevated troponin, SOB (shortness of breath), Hypoxia, Leukocytosis, Pneumonia ED Provider Note NAME: MAXIME CANTU AGE: 83 SEX: F : 1940 ARRIVES VIA: Ambulance INFORMANT: [Patient][nursing, ems] ED PROVIDER(S): [Jamie Oneil MD] CHIEF COMPLAINT: Chest pain HISTORY OF PRESENT ILLNESS: The patient is an 83-year-old female presents by ambulance. She has several complaints. The patient states that last night, around 9 or so hours ago, at 2:30 AM, she awoke with central chest pain almost as if she had a lot of gas. She had some chills and a headache and nausea and felt short of breath. She by report had a low-grade temperature. This morning, she still felt unwell. She took an extra metoprolol succinate and some oral aspirin. The patient called 911 and in route to our hospital, was given 3 nitroglycerin. She is not sure this helped. She also received 4 mg of Zofran for nausea and a 300 cc saline bolus. The patient does not typically wear oxygen but was found to be hypoxic in the ED with a sat of around 89%. O2 was applied and her oxygenation improved. The patient denies recent cough or congestion. She does admit to some recent constipation issues. No urinary complaints. She does have issues with her heart. She has hypertrophic cardiomyopathy. She states that she is currently wearing a heart monitor. PMHx/PSHx/Social Hx: See Below PHYSICAL EXAM: GENERAL: Patient is in no acute distress. HEENT: No acute trauma, normocephalic atraumatic, mucous membranes moist, no nasal congestion. NECK: No stridor, no adenopathy, no meningismus, trachea is midline. LUNGS: Scattered crackles at the bases, no wheezing or respiratory distress. Breath sounds are a bit diminished on the right. HEART: 3/6 systolic murmur, regular rate and rhythm. ABDOMEN: Soft, nontender, no peritonitis. EXTREMITIES: No cyanosis, full range of motion of all the joints without pain or difficulty. NEUROLOGIC: Oriented x 3, no acute motor or sensory deficits, no focal weakness. SKIN: No jaundice, no diaphoresis. DIFFERENTIAL DIAGNOSIS: CHF, pneumonia, bronchitis, UTI, constipation, cardiac ischemia, dysrhythmia, electrolyte imbalance, among others. EMERGENCY DEPARTMENT PROCEDURES: MEDICAL DECISION MAKING: There is a moderate leukocytosis, this would be consistent with infection. There was a normal hemoglobin and platelet count. No coagulopathy. No renal failure or significant electrolyte abnormality. No concerning liver enzyme elevation. ECG showed a sinus tachycardia, no obvious acute TX. Cardiac enzyme testing x 1 was slightly elevated. This troponin elevation could be secondary to cardiac injury or potentially just mismatch from her dyspnea. Looking back at previous records, she has had an elevated troponin in the past. There was no evidence for pancreatitis. The patient appeared to be in a euthyroid state. Urinalysis did not show infection. Respiratory bio fire was negative. Chest x- ray does show a left lower lung pneumonia. KUB did not show any significant constipation. Some mild CHF was thought possible. On exam, the patient was initially somewhat hypoxic. The patient received 300 cc of saline in route, no additional fluid was ordered given the mild CHF suspected on chest x-ray. She was given IV ceftriaxone as antibiotic coverage. The patient is in need of a hospital stay. She presents with chest pain and dyspnea and appears to have pneumonia. She has a mild troponin elevation which will need trended. She was borderline hypoxic when she arrived. Given her age, given her findings, a hospital stay is warranted. Prior/Outside records/notes reviewed: Today's EMS notes describing her presentation and transport to this hospital. ECG per my interpretation: Indication was chest pain. The ECG shows a sinus tachycardia with PACs. The rate is 101. There is a left bundle branch block. There is ST elevation seen likely consistent with the left bundle branch block. QTc is 490. Compared to an ECG from 29 September 2018, I see no significant change. Continuous Cardiac Monitoring per my interpretation: An order was placed for continuous cardiac monitoring. The monitor shows a rate of 103 with sinus tachycardia. Imaging/x-ray results per my interpretation: Chest x-ray shows cardiomegaly and an effusion on the left. There is a left basilar infiltrate present. Some subtle CHF was suspected. KUB did not show significant constipation or bowel obstruction. Chronic Medical/Social conditions affecting care: Advanced age. Care/Management discussed with: Case management, the on-call hospitalist. Level of care consideration(s): After review of the information above and other included data: --I believe the patient requires escalation of care to admission DISPOSITION: Admission Past Med/Surg History Medical History Hypertrophic cardiomyopathy with LVOT and LEYDA PONV (postoperative nausea and vomiting) Lactose intolerance Osteoporosis Rheumatoid arthritis Kidney stones passed on own GERD (gastroesophageal reflux disease) Anxiety Hiatal hernia Hypertension Hyperlipidemia HOCM (hypertrophic obstructive cardiomyopathy) Lumbar stenosis with neurogenic claudication Diverticulitis IBS (irritable bowel syndrome) Mitral valve prolapse Surgical History History of appendectomy History of cataract surgery right and left History of endoscopic sinus surgery History of lumbar spinal fusion History of tonsillectomy and adenoidectomy Hx of mastoidectomy Social History Smoking Status: Never smoker Second Hand Exposure: No; Do You Dip or Chew Tobacco: No; Tobacco Cessation Education Requested by Patient: No Hx Alcohol Use: No Hx Substance Use: No Preferred Language: Estonian Communication Ability: Effective Visual Impairment: No Limitations Architectural Wood Model Maker Required: No Beliefs That Will Affect Care: None Current Living Situation: Spouse Current Living Situation Comment: [facility] Other Information That Helps Us Care for You: No Feels Safe at Home: Yes Safety Concerns: Feels Safe At This Time Assistive Devices: Cane, Glasses and Walker Allergies Allergies Allergy/AdvReac Type Severity Reaction Status Date / Time bee venom protein (honey bee) Allergy Intermediate BEE/WASP-NAUSEA Verified 12/06/23 14:19 AND DIZZINESS Penicillins Allergy Intermediate RASH (PER Verified 12/06/23 14:19 PT, WAS A LONG TIME AGO)AMOXICILLIN AND PCN amoxicillin [From Augmentin] Allergy Mild Unknown Verified 12/06/23 14:19 clavulanic acid Allergy Mild Unknown Verified 12/06/23 14:19 [From Augmentin] esomeprazole Allergy Mild NAUSEA Verified 12/06/23 14:19 VOMITING magnesium citrate Allergy Mild projectile Verified 12/06/23 14:19 vomitting antipyrine Allergy Unknown RASH AND Verified 12/06/23 14:19 BLISTERS benzocaine Allergy Unknown dental - Verified 12/06/23 14:19 tingling on tongue hydroxychloroquine Allergy Unknown UNKNOWN Verified 12/06/23 14:19 misoprostol Allergy Unknown UNKNOWN Verified 12/06/23 14:19 phenylephrine Allergy Unknown UNKNOWN Verified 12/06/23 14:19 pseudoephedrine Allergy Unknown UNKNOWN Verified 12/06/23 14:19 Serotonin 5HT-3 Antagonists Allergy Unknown UNKNOWN Verified 12/06/23 14:19 Sulfa (Sulfonamide Allergy Unknown UNKNOWN Verified 12/06/23 14:19 Antibiotics) citalopram AdvReac Mild GI UPSET Verified 12/06/23 14:19 clarithromycin AdvReac Mild GI UPSET Verified 12/06/23 14:19 denosumab [From Prolia] AdvReac Unknown Unknown Unverified 12/06/23 14:19 Home Meds Home Medications Medication Instructions Recorded Confirmed acetaminophen 500 mg tablet 1,000 mg PO Q8H PRN Pain 08/17/18 12/06/23 (Tylenol Extra Strength) aspirin 81 mg tablet,delayed 81 mg PO [facility] 08/17/18 12/06/23 release atorvastatin 10 mg tablet 10 mg PO HS 08/17/18 12/06/23 calcium carbonate 600 mg-vitamin 1 tab PO [facility] 08/17/18 12/06/23 D3 5 mcg (200 unit) capsule (Calcium 600 + D(3)) cholecalciferol (vitamin D3) 25 1,000 unit PO [facility] 08/17/18 12/06/23 mcg (1,000 unit) capsule (Vitamin D3) fluticasone propionate 50 2 spray intranasal [facility] 08/17/18 12/06/23 mcg/actuation nasal spray,suspension lorazepam 0.5 mg tablet 0.5 mg PO 08/17/18 12/06/23 metoprolol succinate 50 mg 50 mg PO [facility] 08/17/18 12/06/23 tablet,extended release 24 hr pantoprazole 40 mg tablet,delayed 40 mg PO [facility] 08/17/18 12/06/23 release prednisone 5 mg tablet 7.5 mg PO [facility] 08/17/18 12/06/23 folic acid 800 mcg tablet 2,000 mcg PO DAILY 09/26/18 12/06/23 methotrexate sodium 2.5 mg tablet 22.5 mg PO [facility]K 08/05/22 12/06/23 multivitamin 1 tab PO DAILY 08/05/22 12/06/23 calcium carbonate 500 mg PO DAILY 12/06/23 12/06/23 cetirizine 10 mg tablet 10 mg PO DAILY 12/06/23 12/06/23 docusate sodium 50 mg capsule 50 mg PO BID 12/06/23 12/06/23 light mineral oil 1 %-mineral oil 1 drp ophthalmic (eye) BID PRN Dry 12/06/23 12/06/23 4.5 % eye drops (Soothe XP) Eye(S) melatonin 3 mg capsule 9 mg PO HS 12/06/23 12/06/23 ondansetron 4 mg disintegrating 4 mg PO Q8H PRN Nausea And Vomiting 12/06/23 12/06/23 tablet tramadol 50 mg tablet 50 mg PO Q6H PRN Pain 12/06/23 12/06/23 Results & Data (ED) Vital Signs Vital Signs - 24 hr 12/06/23 11:13 12/06/23 11:13 12/06/23 11:13 Temperature 37.5 C Temperature Source Oral Pulse Rate 103 H Pulse Rate [Apical] Respiratory Rate 20 Respiratory Effort / Characteristics Non-Labored Respiratory Depth Normal Blood Pressure 102/69 Blood Pressure [Right Arm] Blood Pressure Mean 80 Blood Pressure Mean [Right Arm] Pulse Oximetry 89 L 94 98 Oxygen Delivery Method Room Air Nasal Cannula Room Air Oxygen Flow Rate 2 Sepsis Recent Fever Within 48 Hours Yes Sepsis New/Unexplained Change in Mental Status No Sepsis Action Taken by Nursing No Action Required 12/06/23 11:21 12/06/23 12:51 12/06/23 13:12 Temperature Temperature Source Pulse Rate 103 H Pulse Rate [Apical] 94 H 94 H Respiratory Rate 20 20 Respiratory Effort / Characteristics Non-Labored Non-Labored Respiratory Depth Normal Normal Blood Pressure Blood Pressure [Right Arm] 102/72 135/70 Blood Pressure Mean Blood Pressure Mean [Right Arm] 82 91 Pulse Oximetry 92 91 Oxygen Delivery Method Room Air Room Air Oxygen Flow Rate Sepsis Recent Fever Within 48 Hours Sepsis New/Unexplained Change in Mental Status Sepsis Action Taken by Half-Way Medications Current Medication List: was personally reviewed by me Laboratory Data Attestation: I reviewed the patient's lab results. 12/06/23 11:47 12/06/23 11:36 Lab Results 12/06/23 12/06/23 12/06/23 Range/Units 11:36 11:40 11:47 WBC 16.62 H (4.8-10.8) K/ul RBC 3.97 L (4.20-5.40) M/uL Hgb 12.2 (12.0-16.0) g/dl Hct 38.0 (37.0-47.0) % MCV 95.7 (80.0-100.0) fL MCH 30.7 (25.0-34.0) pg MCHC 32.1 (32.0-36.0) g/dL RDW Std Deviation 53.6 H (36.4-46.3) fL RDW Coeff of Matteo 15.6 H (11.5-14.5) % Plt Count 165 (130-400) K/uL MPV 11.1 (9.4-12.4) fL Immature Gran % (Auto) 0.6 % Neut % (Auto) 87.0 % Lymph % (Auto) 5.4 % [place] % (Auto) 6.9 % Eos % (Auto) 0.0 % Baso % (Auto) 0.1 % Neut # (Auto) 14.46 H (1.40-6.50) K/uL Lymph # (Auto) 0.90 L (1.20-3.40) K/uL [place] # (Auto) 1.14 H (0.11-0.59) K/uL Eos # (Auto) 0.00 (0.00-0.50) K/uL Baso # (Auto) 0.02 (0.00-0.20) K/uL Immature Gran # (Auto) 0.10 (0.01-0.20) K/uL Hypersegmented Neuts 1+ PT 11.4 (9.0-12.0) Seconds INR 1.1 (0.9-1.1) APTT 28 (21-31) Seconds PTT Ratio 1.0 Sodium 137 (136-145) mmol/L Potassium 3.9 (3.5-5.1) mmol/L Chloride 101 (98-107) mmol/L Carbon Dioxide 28 (21-32) mmol/L Anion Gap 8 (3-11) BUN 9 (6-23) mg/dl Creatinine 0.71 (0.6-1.2) mg/dl Est Cr Clr Drug Dosing 50.5 ml/min Est GFR ( Amer) 91.9 ml/min Est GFR (Non-Af Amer) 79.3 ml/min BUN/Creatinine Ratio 12.7 (10-20) Glucose 132 H (70-99(Fasting)) mg/dl Lactate 1.7 (0.4-2.0) mmol/L Calcium 9.3 (8.6-10.3) mg/dl Magnesium 1.8 (1.7-2.4) mg/dl Total Bilirubin 0.9 (0.2-1.0) mg/dl AST 24 (13-39) U/L ALT 15 (7-52) U/L Alkaline Phosphatase 51 (34-104) U/L Troponin I High Sens 27.6 H (0-14) pg/ml B-Natriuretic Peptide 1299 H (0-100) pg/ml Total Protein 6.6 (6.0-8.3) gm/dl Albumin 4.2 (3.4-5.0) gm/dl Globulin 2.4 L (2.5-4.0) gm/dl Albumin/Globulin Ratio 1.8 (0.9-2) Lipase 14 (11-82) U/L TSH 1.211 (0.300-4.500) uIu/ml Urine Color Urine Appearance (Clear) Urine pH (4.5-7.5) Ur Specific [place] (1.000-1.030) Urine Protein (Negative) Urine Glucose (UA) (Negative) Urine Ketones (Negative) Urine Blood (Negative) Urine Nitrite (Negative) Urine Bilirubin (Negative) Urine Urobilinogen (Negative) Ur Leukocyte Esterase (Negative) Urine WBC (Auto) (0-5) /hpf Urine RBC (Auto) (0-2) /hpf U Hyaline Cast (Auto) (0-2) /lpf U Epithel Cells (Auto) (0-2) /hpf Urine Bacteria (Auto) (None Seen) Adenovirus (PCR) Not Detected (NotDetected) B. pertussis DNA (PCR) Not Detected (NotDetected) B.parapertussis DNA PCR Not Detected (NotDetected) C. pneumoniae DNA (PCR) Not Detected (NotDetected) Coronavirus OC43 (PCR) Not Detected (NotDetected) Coronavirus HKU1 (PCR) Not Detected (NotDetected) Coronavirus 229E (PCR) Not Detected (NotDetected) SARS-CoV-2 (PCR) Not Detected (NotDetected) Coronavirus NL63 (PCR) Not Detected (NotDetected) Human Metapneumovir PCR Not Detected (NotDetected) Influenza Type A (PCR) Not Detected (NotDetected) Influenza Type B (PCR) Not Detected (NotDetected) M. pneumoniae (PCR) Not Detected (NotDetected) Parainfluenza 1 (PCR) Not Detected (NotDetected) Parainfluenza 2 (PCR) Not Detected (NotDetected) Parainfluenza 3 (PCR) Not Detected (NotDetected) Parainfluenza 4 (PCR) Not Detected (NotDetected) RSV (PCR) Not Detected (NotDetected) Entero/Rhino (PCR) Not Detected (NotDetected) 12/06/23 Range/Units 11:50 WBC (4.8-10.8) K/ul RBC (4.20-5.40) M/uL Hgb (12.0-16.0) g/dl Hct (37.0-47.0) % MCV (80.0-100.0) fL MCH (25.0-34.0) pg MCHC (32.0-36.0) g/dL RDW Std Deviation (36.4-46.3) fL RDW Coeff of Matteo (11.5-14.5) % Plt Count (130-400) K/uL MPV (9.4-12.4) fL Immature Gran % (Auto) % Neut % (Auto) % Lymph % (Auto) % [place] % (Auto) % Eos % (Auto) % Baso % (Auto) % Neut # (Auto) (1.40-6.50) K/uL Lymph # (Auto) (1.20-3.40) K/uL [place] # (Auto) (0.11-0.59) K/uL Eos # (Auto) (0.00-0.50) K/uL Baso # (Auto) (0.00-0.20) K/uL Immature Gran # (Auto) (0.01-0.20) K/uL Hypersegmented Neuts PT (9.0-12.0) Seconds INR (0.9-1.1) APTT (21-31) Seconds PTT Ratio Sodium (136-145) mmol/L Potassium (3.5-5.1) mmol/L Chloride (98-107) mmol/L Carbon Dioxide (21-32) mmol/L Anion Gap (3-11) BUN (6-23) mg/dl Creatinine (0.6-1.2) mg/dl Est Cr Clr Drug Dosing ml/min Est GFR ( Amer) ml/min Est GFR (Non-Af Amer) ml/min BUN/Creatinine Ratio (10-20) Glucose (70-99(Fasting)) mg/dl Lactate (0.4-2.0) mmol/L Calcium (8.6-10.3) mg/dl Magnesium (1.7-2.4) mg/dl Total Bilirubin (0.2-1.0) mg/dl AST (13-39) U/L ALT (7-52) U/L Alkaline Phosphatase (34-104) U/L Troponin I High Sens (0-14) pg/ml B-Natriuretic Peptide (0-100) pg/ml Total Protein (6.0-8.3) gm/dl Albumin (3.4-5.0) gm/dl Globulin (2.5-4.0) gm/dl Albumin/Globulin Ratio (0.9-2) Lipase (11-82) U/L TSH (0.300-4.500) uIu/ml Urine Color Yellow Urine Appearance Clear (Clear) Urine pH 8.5 H (4.5-7.5) Ur Specific [place] 1.008 (1.000-1.030) Urine Protein Trace H (Negative) Urine Glucose (UA) Negative (Negative) Urine Ketones Negative (Negative) Urine Blood 2+ H (Negative) Urine Nitrite Negative (Negative) Urine Bilirubin Negative (Negative) Urine Urobilinogen Negative (Negative) Ur Leukocyte Esterase Negative (Negative) Urine WBC (Auto) 0-5 (0-5) /hpf Urine RBC (Auto) 11-20 H (0-2) /hpf U Hyaline Cast (Auto) 0-2 (0-2) /lpf U Epithel Cells (Auto) 0-2 (0-2) /hpf Urine Bacteria (Auto) None Seen (None Seen) Adenovirus (PCR) (NotDetected) B. pertussis DNA (PCR) (NotDetected) B.parapertussis DNA PCR (NotDetected) C. pneumoniae DNA (PCR) (NotDetected) Coronavirus OC43 (PCR) (NotDetected) Coronavirus HKU1 (PCR) (NotDetected) Coronavirus 229E (PCR) (NotDetected) SARS-CoV-2 (PCR) (NotDetected) Coronavirus NL63 (PCR) (NotDetected) Human Metapneumovir PCR (NotDetected) Influenza Type A (PCR) (NotDetected) Influenza Type B (PCR) (NotDetected) M. pneumoniae (PCR) (NotDetected) Parainfluenza 1 (PCR) (NotDetected) Parainfluenza 2 (PCR) (NotDetected) Parainfluenza 3 (PCR) (NotDetected) Parainfluenza 4 (PCR) (NotDetected) RSV (PCR) (NotDetected) Entero/Rhino (PCR) (NotDetected) Administered Medications Discontinued Medications Acetaminophen (Acetaminophen 325 Mg Tab) 650 mg PO NOW STA Stop: 12/06/23 14:00 Last Admin: 12/06/23 14:22 Dose: 650 mg Documented By: MICHAEL Ceftriaxone Sodium (Rocephin) 2,000 mg in 50 mls @ 100 mls/hr IV NOW STA Stop: 12/06/23 12:47 Last Infusion: 12/06/23 13:08 Dose: Infused Documented By: Admin: 12/06/23 12:26 Dose: 100 mls/hr Documented By: MICHAEL Azithromycin 500 mg/ Dextrose 255 mls @ 125 mls/hr IV ONE ONE Stop: 12/06/23 16:02 Last Infusion: 12/06/23 17:18 Dose: Infused Documented By: Admin: 12/06/23 14:33 Dose: 125 mls/hr Documented By: MICHAEL Imaging Data Radiologist's Impression: Chest X-Ray 12/06/23 11:11 XR chest 1V portable CLINICAL HISTORY: Chest pain, nonspecific COMPARISON STUDY: Chest radiograph August 07, 2022. FINDINGS: Electronic device projects over the left chest. S-shaped scoliosis of the thoracic spine is incidentally noted. There is no pneumothorax. Small left pleural effusion is present. There is moderate left basilar opacity. Interstitial thickening is present. There is mild cardiomegaly and extensive mitral annular calcification. No pneumothorax. IMPRESSION: 1. Cardiomegaly with mild interstitial pulmonary edema. 2. Small left pleural effusion with left basilar opacity which could reflect pneumonia or atelectasis. Radiographic follow-up to ensure resolution is recommended. ACT 112: Negative or not required by law. Electronically signed by: Francois Robbins M.D. 12/06/2023 11:49 AM KUB X-Ray 12/06/23 11:21 KUB HISTORY: constipation COMPARISON: None. FINDINGS: The bowel gas pattern is unremarkable. There are no dilated loops of small bowel to suggest an obstruction. No renal calculi. No ureteral calculi. No pneumoperitoneum or pneumatosis. S-shaped scoliosis of the thoracolumbar spine. Extensive posterior fusion hardware within the lumbosacral spine. The hardware appears intact. Mild fecal retention which has improved. Left basilar opacity/effusion is noted. IMPRESSION: 1. Nonobstructive bowel gas pattern. 2. Mild fecal retention which has improved. 2. Left basilar opacity/effusion is partially visualized. ACT 112: Negative or not required by law. Electronically signed by: Derrick Jimenez M.D. 12/06/2023 12:44 PM Discharge Plan Visit Data Chief Complaint: Chest Pain Stated Complaint: CHEST PAIN ED Provider: Jamie Oneil Discharge Problem: Precordial chest pain, Elevated troponin, SOB (shortness of breath), Hypoxia, Leukocytosis, Pneumonia Patient Disposition: Admitted As Inpatient Condition: Fair Discharge Instructions Interventions: ED Discharge Assessment Last Done: 12/06/23 14:00 Discharge Problem: Leukocytosis Qualifiers: Leukocytosis type: unspecified Qualified Code(s): D72.829 - Elevated white blood cell count, unspecified Pneumonia Qualifiers: Pneumonia type: due to unspecified organism Laterality: left Lung location: l ower lobe of lung Qualified Code(s): J18.9 - Pneumonia, unspecified organism
--- NOTE | 2023-12-06 11:51 | XRay Report ---
XR chest 1V portable CLINICAL HISTORY: Chest pain, nonspecific COMPARISON STUDY: Chest radiograph August 07, 2022. FINDINGS: Electronic device projects over the left chest. S-shaped scoliosis of the thoracic spine is incidentally noted. There is no pneumothorax. Small left pleural effusion is present. There is moder ate left basilar opacity. Interstitial thickening is present. There is mild cardiomegaly and extensiv e mitral annular calcification. No pneumothorax. IMPRESSION: 1. Cardiomegaly with mild interstitial pulmonary edema. 2. Small left pleural effusion with left basilar opacity which could reflect pneumonia or atelectasis . Radiographic follow-up to ensure resolution is recommended. ACT 112: Negative or not required by law. Electronically signed by: Francois Robbins M.D. 12/06/2023 11:49 AM
[2023-12-06 12:14] LABS: Appearance Urine Clear (Clear); Bacteria Urine Automated None Seen (None Seen); Bilirubin Urine Negative (Negative); Blood Urine 2+ (Negative); Cast Urine Automated 0-2 /lpf (0-2); Color Urine Yellow; Epithelial Cell Urine Auto 0-2 /hpf (0-2); Glucose Urine UA Negative (Negative); Ketones Urine Negative (Negative); Leukocyte Esterase Urine Negative (Negative); Nitrite Urine Negative (Negative); Protein Urine Trace (Negative); Specific Gravity Urine 1.008 (1.000-1.030); Urobilinogen Urine Negative (Negative); WBC Urine Automated 0-5 /hpf (0-5); pH Urine 8.5 (4.5-7.5)
[2023-12-06] MEDS: cefTRIAXone SODIUM 2,000 MG/50 ML BAG IV STA (12:26)
[2023-12-06 12:27] LABS: INR 1.1 (0.9-1.1); Partial Thromboplastin Time 28 Seconds (21-31); Prothrombin Time 11.4 Seconds (9.0-12.0)
[2023-12-06 12:31] LABS: Albumin Globulin Ratio 1.8 (0.9-2); Albumin Level 4.2 gm/dl (3.4-5.0); BUN Creatinine Ratio 12.7 (10-20); Bilirubin,Total 0.9 mg/dl (0.2-1.0); Calcium 9.3 mg/dl (8.6-10.3); Creatinine Clr Calc Pharmacy 50.5 ml/min; Est GFR (African American) 91.9 ml/min; Est GFR (Non-African American) 79.3 ml/min; Globulin 2.4 gm/dl (2.5-4.0); Magnesium 1.8 mg/dl (1.7-2.4); Potassium 3.9 mmol/L (3.5-5.1); Total Protein 6.6 gm/dl (6.0-8.3)
[2023-12-06 12:37] LABS: Troponin I High Sensitivity 27.6 pg/ml (0-14)
--- NOTE | 2023-12-06 12:45 | XRay Report ---
KUB HISTORY: constipation COMPARISON: None. FINDINGS: The bowel gas pattern is unremarkable. There are no dilated loops of small bowel to suggest an obstruction. No renal calculi. No ureteral calculi. No pneumoperitoneum or pneumatosis. S-shaped scoliosis of the thoracolumbar spine. Extensive posterior fusion hardware within the lumbosacral spi ne. The hardware appears intact. Mild fecal retention which has improved. Left basilar opacity/effusi on is noted. IMPRESSION: 1. Nonobstructive bowel gas pattern. 2. Mild fecal retention which has improved. 2. Left basilar opacity/effusion is partially visualized. ACT 112: Negative or not required by law. Electronically signed by: Derrick Jimenez M.D. 12/06/2023 12:44 PM
[2023-12-06 12:47] LABS: Thyroid Stimulating Hormone 1.211 uIu/ml (0.300-4.500)
[2023-12-06 12:47] LABS: Hemoglobin 12.2 g/dl (12.0-16.0); Mean Corpuscular Hemoglobin 30.7 pg (25.0-34.0); Mean Corpuscular Hgb Conc 32.1 g/dL (32.0-36.0); Mean Corpuscular Volume 95.7 fL (80.0-100.0); Mean Platelet Volume 11.1 fL (9.4-12.4); Platelet Count 165 K/uL (130-400); RDW Coefficient of Variation 15.6 % (11.5-14.5); RDW Standard Deviation 53.6 fL (36.4-46.3); Red Blood Count 3.97 M/uL (4.20-5.40); White Blood Count 16.62 K/ul (4.8-10.8)
[2023-12-06 12:58] LABS: Basophils # (auto) 0.02 K/uL (0.00-0.20); Basophils % (auto) 0.1 %; Hypersegmented Neutrophils 1+; Immature Granulocytes % (auto) 0.6 %; Lymphocytes % (auto) 5.4 %; Monocytes # (auto) 1.14 K/uL (0.11-0.59); Monocytes % (auto) 6.9 %; Neutrophils # (auto) 14.46 K/uL (1.40-6.50)
[2023-12-06 12:58] LABS: Adenovirus PCR Not Detected (NotDetected); Bordetella parapertussis PCR Not Detected (NotDetected); Bordetella pertussis PCR Not Detected (NotDetected); Chlamydia pneumoniae PCR Not Detected (NotDetected); Coronavirus 229E PCR Not Detected (NotDetected); Coronavirus CoV-2 (COVID19)PCR Not Detected (NotDetected); Coronavirus HKU1 PCR Not Detected (NotDetected); Coronavirus NL63 PCR Not Detected (NotDetected); Coronavirus OC43PCR Not Detected (NotDetected); Human Metapneumovirus PCR Not Detected (NotDetected); Influenza A PCR Not Detected (NotDetected); Influenza B PCR Not Detected (NotDetected); Mycoplasma pneumoniae PCR Not Detected (NotDetected); Parainfluenza Virus 1 PCR Not Detected (NotDetected); Parainfluenza Virus 2 PCR Not Detected (NotDetected); Parainfluenza Virus 3 PCR Not Detected (NotDetected); Parainfluenza Virus 4 PCR Not Detected (NotDetected); Respiratory Syncytial VirusPCR Not Detected (NotDetected); Rhinovirus/Enterovirus PCR Not Detected (NotDetected)
--- NOTE | 2023-12-06 13:20 | History & Physical Report ---
Date of Service December 06, 2023 Assessment & Plan (1) Left lower lobe pneumonia: Plan: Worsening left-sided chest pain, chills, and SOB since the evening of 12/04 Patient was hypoxic on arrival at 89% on RA Leukocytosis at 16.62 with a neutrophilic predominance [employer] negative CXR revealed small left pleural effusion with left basilar opacity which could reflect pneumonia Rocephin 2000 mg IV q24h Azithromycin 500 mg IV q24h; QTc 490 Follow Blood Cx Acetaminophen as needed for pain/fever Supplemental oxygen as needed to maintain SpO2 >94% Continuous pulse oximetry PT/OT consulted for increased weakness/fatigue A.m. CBC, BMP, mag (2) Elevated troponin: Plan: Elevated troponin at 27.6-->27.8 on arrival Patient does endorse left-sided chest pain; reproducible on clinical exam; in the setting of LLL pneumonia Continuous telemetry monitoring (3) Chronic diastolic heart failure: Plan: BNP elevated at 1299 (last 1478 on 08/05/2022) Echocardiogram on 08/06/2022 revealed LVEF >70% with severe asymmetric hypertrophy Unclear if heart failure contributing, patient is not currently on diuretics; will defer diuretics in the setting of HOCM (4) HOCM (hypertrophic obstructive cardiomyopathy): Plan: Chronic; noted (5) Constipation: Plan: Constipation x 1 week KUB x-ray revealed nonobstructive gas pattern, and mild fecal retention MiraLAX as needed (6) Rheumatoid arthritis: Plan: Continue prednisone (7) Hypertension: Plan: Continue metoprolol Plan [facility] Regular diet VTE PPx: Lovenox 40 mg SQ q24h History of Present Illness Chief Complaint: Left-sided chest pain, SOB, chills Primary Care Provider: Aaron Wolf MD Vane is an 83-year-old female with PMH of HOCM, HTN, HLD, CKD stage IIIa, CHF, diverticulitis, GI bleed, and rheumatoid arthritis. She presented via EMS for left-sided chest pain, constipation, chills, and SOB that began the evening of 12/04. Patient reports that she woke up around 2:30 AM on the morning of 12/05, with difficulty breathing, nausea, and pain in the left side of her chest which she attributed to "gas". She felt like she was not breathing right, and initially thought that she was going to throw up. Patient has had constipation and fatigue for the past week, and believes it was initially related to that, but then developed headache and chills. Patient reports her SOB is both at rest and with exertion. She is not sure if it is worse when she lies flat on her back, and she normally sleeps propped up with pillows. She describes the left- sided chest pain as constant. The pain is exacerbated with deep breaths, which leads to "sharp, achy" pain down the center of her chest. Patient reports that she took 4 baby aspirin's this morning for the pain. She also took her metoprolol, but no other medications. Patient manages her own medications at home, does not believe there is been any recent change in medications. Patient does not use supplemental oxygen at home. No sick contacts. Patient denies smoking, tobacco use, and recent alcohol use. Patient reports that she does have a PCN allergy, and has developed a rash when taking amoxicillin in the past for dental work; however she reports that she has tolerated Rocephin well so far. Patient's SpO2 was 89% on RA on arrival, and she was mildly tachycardic at 103 bpm. ED course: Rocephin 2000 g IV ROS: Patient endorses low-grade fever, chills, body aches, LOUISE, lightheadedness, SOB both at rest and with exertion, chest tightness, pleuritic CP, left shoulder pain (which patient reports has been ongoing), nausea, and constipation. Patient denies cough, vomiting, diarrhea, or numbness/tingling in the arms or legs. Allergies Allergy/AdvReac Type Severity Reaction Status Date / Time bee venom protein (honey bee) Allergy Intermediate BEE/WASP-NAUSEA Verified 12/06/23 14:19 AND DIZZINESS Penicillins Allergy Intermediate RASH (PER Verified 12/06/23 14:19 PT, WAS A LONG TIME AGO)AMOXICILLIN AND PCN amoxicillin [From Augmentin] Allergy Mild Unknown Verified 12/06/23 14:19 clavulanic acid Allergy Mild Unknown Verified 12/06/23 14:19 [From Augmentin] esomeprazole Allergy Mild NAUSEA Verified 12/06/23 14:19 VOMITING magnesium citrate Allergy Mild projectile Verified 12/06/23 14:19 vomitting antipyrine Allergy Unknown RASH AND Verified 12/06/23 14:19 BLISTERS benzocaine Allergy Unknown dental - Verified 12/06/23 14:19 tingling on tongue hydroxychloroquine Allergy Unknown UNKNOWN Verified 12/06/23 14:19 misoprostol Allergy Unknown UNKNOWN Verified 12/06/23 14:19 phenylephrine Allergy Unknown UNKNOWN Verified 12/06/23 14:19 pseudoephedrine Allergy Unknown UNKNOWN Verified 12/06/23 14:19 Serotonin 5HT-3 Antagonists Allergy Unknown UNKNOWN Verified 12/06/23 14:19 Sulfa (Sulfonamide Allergy Unknown UNKNOWN Verified 12/06/23 14:19 Antibiotics) citalopram AdvReac Mild GI UPSET Verified 12/06/23 14:19 clarithromycin AdvReac Mild GI UPSET Verified 12/06/23 14:19 denosumab [From Prolia] AdvReac Unknown Unknown Unverified 12/06/23 14:19 Home Medications Medication Instructions Recorded Confirmed Type acetaminophen 500 mg tablet 1,000 mg PO Q8H PRN Pain 08/17/18 12/06/23 History (Tylenol Extra Strength) aspirin 81 mg tablet,delayed 81 mg PO [facility] 08/17/18 12/06/23 History release atorvastatin 10 mg tablet 10 mg PO HS 08/17/18 12/06/23 History calcium carbonate 600 mg-vitamin 1 tab PO [facility] 08/17/18 12/06/23 History D3 5 mcg (200 unit) capsule (Calcium 600 + D(3)) cholecalciferol (vitamin D3) 25 1,000 unit PO QAM 08/17/18 12/06/23 History mcg (1,000 unit) capsule (Vitamin D3) fluticasone propionate 50 2 spray intranasal [facility] 08/17/18 12/06/23 History mcg/actuation nasal spray,suspension lorazepam 0.5 mg tablet 0.5 mg PO HS 08/17/18 12/06/23 History metoprolol succinate 50 mg 50 mg PO [facility] 08/17/18 12/06/23 History tablet,extended release 24 hr pantoprazole 40 mg tablet,delayed 40 mg PO QAM 08/17/18 12/06/23 History release prednisone 5 mg tablet 7.5 mg PO QAM 08/17/18 12/06/23 History folic acid 800 mcg tablet 2,000 mcg PO DAILY 09/26/18 12/06/23 History methotrexate sodium 2.5 mg tablet 22.5 mg PO WK 08/05/22 12/06/23 History multivitamin 1 tab PO DAILY 08/05/22 12/06/23 History calcium carbonate 500 mg PO DAILY 12/06/23 12/06/23 History cetirizine 10 mg tablet 10 mg PO DAILY 12/06/23 12/06/23 History docusate sodium 50 mg capsule 50 mg PO BID 12/06/23 12/06/23 History light mineral oil 1 %-mineral oil 1 drp ophthalmic (eye) BID PRN Dry 12/06/23 12/06/23 History 4.5 % eye drops (Soothe XP) Eye(S) melatonin 3 mg capsule 9 mg PO HS 12/06/23 12/06/23 History ondansetron 4 mg disintegrating 4 mg PO Q8H PRN Nausea And Vomiting 12/06/23 12/06/23 History tablet tramadol 50 mg tablet 50 mg PO Q6H PRN Pain 12/06/23 12/06/23 History Past Med/Surg History Medical History Hypertrophic cardiomyopathy with LVOT and LEYDA PONV (postoperative nausea and vomiting) Lactose intolerance Osteoporosis Rheumatoid arthritis Kidney stones passed on own GERD (gastroesophageal reflux disease) Anxiety Hiatal hernia Hypertension Hyperlipidemia HOCM (hypertrophic obstructive cardiomyopathy) Lumbar stenosis with neurogenic claudication Diverticulitis IBS (irritable bowel syndrome) Mitral valve prolapse Surgical History History of appendectomy History of cataract surgery right and left History of endoscopic sinus surgery History of lumbar spinal fusion History of tonsillectomy and adenoidectomy Hx of mastoidectomy Social History Smoking Status: Never smoker Second Hand Exposure: No; Do You Dip or Chew Tobacco: No; Tobacco Cessation Education Requested by Patient: No Hx Alcohol Use: No Hx Substance Use: No Preferred Language: Romanian Communication Ability: Effective Visual Impairment: No Limitations Cloud Architect Required: No Beliefs That Will Affect Care: None Current Living Situation: Spouse Current Living Situation Comment: [facility] Other Information That Helps Us Care for You: No Feels Safe at Home: Yes Safety Concerns: Feels Safe At This Time Assistive Devices: Cane, Glasses and Walker Review of Systems Review of Systems: See HPI above Physical Exam Physical Exam: General: no acute distress; non-toxic appearing; frail appearing; cooperative; 89% SpO2 on RA HEENT: normocephalic, atraumatic; no scleral icterus; PERRLA w/ EOMs intact; moist mucus membrane; vision and hearing grossly intact Neck: supple; no lymphadenopathy; trachea midline Skin: Pale; warm, dry without signs of tenting; no cyanosis; no rashes, bruising, lesions, or erythema noted CV: Mild substernal tenderness to palpation; pectus excavatum; no signs of rashes or bruising on the abdomen or chest wall; RRR; S1/S2 normal; no murmurs/rubs/gallops; pulses intact and symmetric at radial, DP, and PT Lungs: no acute respiratory distress; symmetrical chest wall expansion; mild crackles auscultated in the lower lung gooden bilaterally ABD: Soft, NTP; BS present; no rebound/guarding; no distention MSK: no tics or fasciculations; no edema noted in the LEs b/l, nonerythematous Neuro: A&Ox3; normal mood and affect; fluent speech; no focal deficits; sensation grossly intact in the LEs b/l Results & Data Results & Data Vital Signs (Past 12 Hours) Vital Signs Temp Pulse Pulse Resp BP BP Pulse Ox 12/06/23 13:12 94 H 20 135/70 91 12/06/23 12:51 94 H 20 102/72 92 12/06/23 11:21 103 H 12/06/23 11:13 98 12/06/23 11:13 94 12/06/23 11:13 37.5 C 103 H 20 102/69 89 L O2 Del Method O2 Flow Rate 12/06/23 13:12 Room Air 12/06/23 12:51 Room Air 12/06/23 11:21 12/06/23 11:13 Room Air 12/06/23 11:13 Nasal Cannula 2 12/06/23 11:13 Room Air Laboratory Results Abnormal lab results 12/06/23 12/06/23 12/06/23 Range/Units 11:36 11:47 11:50 WBC 16.62 H (4.8-10.8) K/ul RBC 3.97 L (4.20-5.40) M/uL RDW Std Deviation 53.6 H (36.4-46.3) fL RDW Coeff of Matteo 15.6 H (11.5-14.5) % Neut # (Auto) 14.46 H (1.40-6.50) K/uL Lymph # (Auto) 0.90 L (1.20-3.40) K/uL Todd # (Auto) 1.14 H (0.11-0.59) K/uL Glucose 132 H (70-99(Fasting)) mg/dl Troponin I High Sens 27.6 H (0-14) pg/ml B-Natriuretic Peptide 1299 H (0-100) pg/ml Globulin 2.4 L (2.5-4.0) gm/dl Urine pH 8.5 H (4.5-7.5) Urine Protein Trace H (Negative) Urine Blood 2+ H (Negative) Urine RBC (Auto) 11-20 H (0-2) /hpf Diagnostic Findings Chest X-Ray 12/06/23 11:11 XR chest 1V portable CLINICAL HISTORY: Chest pain, nonspecific COMPARISON STUDY: Chest radiograph August 07, 2022. FINDINGS: Electronic device projects over the left chest. S-shaped scoliosis of the thoracic spine is incidentally noted. There is no pneumothorax. Small left pleural effusion is present. There is moderate left basilar opacity. Interst itial thickening is present. There is mild cardiomegaly and extensive mitral annular calcification. No pneumothorax. IMPRESSION: 1. Cardiomegaly with mild interstitial pulmonary edema. 2. Small left pleural effusion with left basilar opacity which could reflect pneumonia or atelectasis. Radiographic follow-up to ensure resolution is recommended. ACT 112: Negative or not required by law. Electronically signed by: Francois Robbins M.D. 12/06/2023 11:49 AM KUB X-Ray 12/06/23 11:21 KUB HISTORY: constipation COMPARISON: None. FINDINGS: The bowel gas pattern is unremarkable. There are no dilated loops of small bowel to suggest an obstruction. No renal calculi. No ureteral calculi. No pneumoperitoneum or pneumatosis. S-shaped scoliosis of the thoracolumbar spine. Extensive posterior fusion hardware within the lumbosacral spine. The hardware appears intact. Mild fecal retention which has improved. Left basilar opacity/effusion is noted. IMPRESSION: 1. Nonobstructive bowel gas pattern. 2. Mild fecal retention which has improved. 2. Left basilar opacity/effusion is partially visualized. ACT 112: Negative or not required by law. Electronically signed by: Derrick Jimenez M.D. 12/06/2023 12:44 PM ECG Additional Comments: ECG revealed sinus tachycardia with PACs at 101 bpm; QTc 490 Code Status & VTE Plan Code Status DNR/DNI (discussed with patient at the bedside who exhibits capacity at this time) VTE Prophylaxis Plan VTE Prophylaxis will be ordered: Yes Supervising Physician Co-Signing Physician Notes I personally saw and examined the patient. I independently reviewed the labs, EKG, imaging, problem list, medication list, past medical history and family history. I verified all kelly points and agree with Derrick Zaldivar PA-C with the following exceptions and/or additions: 83-year-old female presents to the ER with left-sided chest pain, constipation, chills, nausea, shortness of breath since last night. O/E HS RRR, systolic murmur, no respiratory distress, left basal crackles, no wheezing, mild left-sided abdominal pain without rebound or guarding, no CVA tenderness A/P Pneumonia - Ceftriaxone, Azithromycin Constipation - start MiraLAX daily in addition to docusate RA - continue prednisone and methotrexate LBBB - this is not new, troponin x2 elevated but low and not suggestive of ACS PG Care Time/CCT Total # of Minutes Spent Total Time Spent with Patient: Total time spent is greater than 50% in coordination of care (as documented) at patient's floor/unit and/or counseling patient: Coding [place] [address] INT INP/OBS CARE 3/75MIN Patient Type Established Medical Decision Making High Complexity Diagnoses Left lower lobe pneumonia J18.9 Elevated troponin R77.8 Chronic diastolic heart failure I50.32 HOCM (hypertrophic obstructive cardiomyopathy) I42.1 Constipation K59.00 Rheumatoid arthritis M06.9 Hypertension I10
[2023-12-06] MEDS: ACETAMINOPHEN 325 MG TAB PO STA (14:22)
[2023-12-06] MEDS ORDERED: POLYETHYLENE (MIRALAX) 17 GM PACK PO PRN (14:25)
[2023-12-06] MEDS: AZITHROMYCIN 500 MG in DEXTROSE 5% 250 ML IV ONE (14:33)
[2023-12-06] MEDS ORDERED: traMADol HCL 50 MG TABLET PO PRN (14:51)
[2023-12-06] MEDS: PANTOprazole 40 MG TAB PO SCH (18:16)
[2023-12-06] MEDS: predniSONE 2.5 MG TAB PO SCH (18:51)
[2023-12-06] MEDS: MELATONIN 3 MG TAB PO SCH (20:30)
[2023-12-06] MEDS: LORazepam 0.5 MG TAB PO SCH (20:30)
[2023-12-06] MEDS: ENOXAPARIN INJ 40 MG/0.4 ML SYR SQ SCH (20:30)
[2023-12-06] MEDS: ATORVASTATIN 10 MG TAB PO SCH (20:30)
[2023-12-06] MEDS: METOPROLOL SUCC 50MG EXT REL TAB PO SCH (20:31)
--- OUTSIDE RECORDS SUMMARY | 2023-12-06 23:34 | External Medical Summary | Summary of Care ---
Author Name Unknown Organization [facility] Address [address] [facility] [place] [address] Phone [phone] Care Team Providers Care Drill Foreman Name Role Phone Aaron Wolf MD Primary Care Provider [phone] Reason for Visit * Reason Onset Date Comments Medication Refill 11/30/2023 Encounter Details Date Type Department Care Team (Late st Contact Info) Description 11/30/2023 Refill Cardiology, [facility] [address] [place] [address] Louisa Carrillo CRNP [address] [place] [address] LBBB (left bundle branch block); Left ventricular outflow tract obstruction; Cardiac outflow obstruction; Dyslipidemia, goal LDL below 160 Allergies Active Allergy Reactions Criticality Noted Date Comments Triprolidine-Pseudoephedrin e 05/22/2015 Anefrin Nasal [place] 08/12/2018 Amoxicillin 04/04/2004 Antipyrine 03/09/2006 Rash and blisters Amoxicillin-Pot Clavulanate 03/09/20 14 Bee Stings 04/04/2004 Benzocaine Other (Please comment) 03/08/2018 Headache Citalopram Hydrobromide Other (Please comment) 09/18/2014 Tremors Citalopram 01/08/2003 Clarithromycin 12/08/2001 gi upset Clavulanic Acid Low 05/18/2020 Other reaction(s): Unknown Misoprostol 03/09/2014 Magnesium Citrate Low 05/18/2020 Other reaction(s): projectile vomitting Esomeprazole 12/01/2005 Hydroxychloroquine Sulfate 10/21/201 5 Denosumab High 02/13/2019 Pseudoephedrine Sulfa Antibiotics 10/18/2000 ? rash Sympathomimetics documented as of this encounter (statuses as of 11/30/2023) Medications Medication Sig Dispensed Refills Start Date End Date Status MULTIVITAMIN TABS OR daily 0 10/31/2001 Active ASPIRIN 81 MG OR CHEW take one tablet daily 100 3 10/19/2002 Active TYLENOL 500 MG PO CAPS Take by mouth 5 Tablets daily . 0 04/09/2006 Active FLONASE INHA 50 MCG/DOSE NAIndications:Chron ic sinusitis two sprays each nostril once daily 3 0 10/28/2006 Active VITAMIN D 1000 UNIT PO TABS one tablet daily 0 Active CALCIUM + D 600-200 MG-UNIT PO TABS one tablet 1 times per day 0 Active CETIRIZINE HCL 10 MG PO TABS one daily 0 Active Melatonin 3 MG Oral Capsule Take 3 Capsules by mouth at bedtime. 0 Active PROTONIX 40 MG PO TBEC 1 tab once daily 0 Active CIPRODEX 0.3-0.1 % OT SUSP Administer into ears . 0 Active LORAzepam (ATIVAN) 0.5 MG TabletIndications:A nxiety state Take 1 Tablet by mouth at bedtime. 180 Tab 0 02/20/2015 Active Folic Acid 800 MCG Tablet 2mg by mouth once daily 0 05/21/2016 Active docusate sodium (COLACE) 50 MG Capsule Take by mouth 2 times a day. 0 Active Senna 30 MG MISC Take 2 Tabs by mouth. 0 Active Methylcellulose (Laxative) Oral Powder Take by mouth daily. 0 Active Ondansetron 4 MG Oral Tablet Disintegrating Place 1 Tablet on tongue every 8 hours as needed for Nausea. dissolve on tongue. 0 Active traMADol (ULTRAM) 50 MG Tablet Take 1 Tablet by mouth every 6 hours as needed for Pain. 0 Active Calcium Carbonate Antacid 500 MG Oral Tablet Chewable Take 1 Tablet by mouth in the morning. 0 Active Magnesium Hydroxide 400 MG/5ML Oral Suspension Take by mouth daily as needed for Constipation. 0 Active Soothe XP Ophthalmic Solution Instill into eye 2 times a day. Instill one drop in each eye twice per day 0 Active NATURAL SUPPLEMENT Take by mouth daily . Takes Lactaid as needed 0 Active Methotrexate Sodium 2.5 MG Oral Tablet Take 9 Tablets by mouth once a week. 108 Tablet 0 11/30/2023 Active predniSONE 5 MG Oral Tablet (Deltasone) Take 1.5 Tablets by mouth in the morning. 135 Tablet 1 11/30/2023 Active Metoprolol Succinate ER 50 MG Oral Tablet Extended Release 24 Hour (toPROL XL)Indications:LBBB (left bundle branch block),Left ventricular outflow tract obstruction,Cardiac outflow obstruction Take 1 Tablet by mouth in the morning and 1 Tablet before bedtime. 180 Tablet 1 11/30/2023 Active Atorvastatin Calcium 10 MG Oral Tablet (Lipitor)Indication s:Dyslipidemia, goal LDL below 160 Take 1 Tablet by mouth in the morning. In the morning.. 90 Tablet 1 11/30/2023 Active Metoprolol Succinate ER 50 MG Oral Tablet Extended Release 24 Hour (toPROL XL)Indications:LBBB (left bundle branch block),Left ventricular outflow tract obstruction,Cardiac outflow obstruction TAKE 1 TABLET TWICE A DAY 180 Tablet 3 04/15/2023 4 Discontinue d(Refill) Atorvastatin Calcium 10 MG Oral Tablet (Lipitor)Indication s:Dyslipidemia, goal LDL below 160 TAKE 1 TABLET EVERY MORNING 90 Tablet 3 04/15/2023 4 Discontinue d(Refill) documented as of this encounter (statuses as of 11/30/2023) Active Problems Problem Noted Date Diagnosed Date Rheumatoid arthritis of [facility] sites without rheumatoid factor 09/01/2021 Encounter for therapeutic drug monitoring 2021 Hypertrophic obstructive cardiomyopathy (HOCM) 0 03/09/2014 Cardiac outflow obstruction 08/17/2013 Left ventricular outflow tract obstruction 02/13 LBBB (left bundle branch block) 08/09/2012 DYSLIPIDEMIA, GOAL TO BE DETERMINED 07/11/2009 Overview: Per Lipid Taxonomy. Other adverse food reactions, not elsewhere clas sified 05/05/2005 Irritable bowel syndrome 05/05/2005 NONALLERGIC RHINITIS 05/05/2005 ADVANCE DIRECTIVE INFORMATION 02/17/2005 Overview: Yes, Copy scanned at patient level in the electronic medical record.(Go to Action, Patient File to view) Patient aware they must notify their healthcare provider of changes. Senile osteoporosis OBSESSIVE-COMPULSIVE DIS Diaphragmatic hernia Chronic sinusitis Carpal tunnel syndrome GENERALIZED ANXIETY DIS documented as of this encounter (statuses as of 11/30/2023) Resolved Problems Problem Noted Date Diagnosed Date Resolved Date PURE HYPERCHOLESTEROLEM 01/13/200507/02 Overview: Per Lipid Taxonomy. 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 factor 09/01/19 22 Mitral valve prolapse 2011 documented as of this encounter (statuses as of 11/30/2023) Immunizations Name Administration Dates Next Due COVID-19 mRNA, LNP-s, No Pre serve, 2-Dose Series (Moderna) 04/28/2021,10/22/2020,09/24/2020 COVID-19, MRNA-LNP, 23-24, P F, 30 MCG/0.3 mL, 12 YRS AND ABOVE, IM ([email or web address]) 05/13/2023 COVID-19, mRNA, LNP-s, PF, B ooster, 100mcg/0.5mg (Moderna) 01/13/2022 Covid-19, Mrna, Lnp-s, Pf, B ivalent, 30 Mcg, IM, 12 yrs and above ([employer]) 06/02/2022 Pneumococcal Conjugate Vacc, 13 Valent (Prevnar) 05/07/2016 Pneumococcal Conjugate Vacci ne, 7 Valent 12/09/2005 RSV Vac., Recomb, Adjuvant, PF,0.5 Ml (Arexvy) 06/05/2023 Season Influenza, Quad, PF, Adjuvanted, 65+ Yrs, IM (FLUAD) 05/13/2023 Seasonal Influenza Virus Vac cine, Unspecified Formulation 05/19/2016,05/26/2005,05/23/2004,2000,06/29/2000 Seasonal Influenza, Quadriva lent Hd, 65+ Yrs 05/13/2023,06/02/2022,05/10/2021,2019 Seasonal Influenza, Quadriva lent, No Preserve, IM 05/08/2015 Seasonal Influenza, Split, I IV3, With Preserve, Inj 05/19/2016 Seasonal Influenza, Trivalen t, Adjuvanted, 65+ yrs 05/11/2019 Seasonal Influenza, Trivalen t, High Dose, No Preserve, IM 05/10/2020 TD - Tetanus/Diptheria (ADULT) 12/09/2005 TDAP (age 11 and older)(Adacel) 09/19/2015 documented as of this encounter Social History Tobacco Use Types Packs/Day Years Used Date Smoking Tobacco: Never Smokeless Tobacco: Never Comments:pass[facility] Alcohol Use Standard Drinks/Week Comments No 0 (1 standard drink = 0.6 oz pur e alcohol) Sex and Gender Information Value Date Recorded Sex Assigned at Not on file Gender Identity Not on file Sexual Orientation Not on file Job Start Date Occupation Industry Not on file Not on file Not on file documented as of this encounter Miscellaneous Notes * Telephone Encounter - Darius Metcalf RPh - 11/30/2023 3:29 PM EDT Rerouted to mail order as requested in other encounter Heron Nieto, PharmD Clinical Pharmacist [facility] (Formerly [facility]) [phone] 11/30/2023 3:29 PM documented in this encounter Plan of Treatment Upcoming Encounters Date Type Department Care Team (Late st Contact Info) Description 12/15/2023 10:35 AM EDT [facility] [address] [facility] [place] [address] 02/24/2024 10:00 AM EDT Office Visit Cardiology, [facility] [address] [facility] [place] [address] Louisa Carrillo CRNP [address] [facility] [place] [address] 04/25/2024 11:00 AM EDT Office Visit Rheumatology [place] [address] [facility] [place] [address] Bethel Jones MD [address] [place] [address] Health Maintenance Due Date Last Done Comments Depression Screening 1952 Zoster Vaccines (1 of 2) 1960 DXA Scan 05/07/2011 05/07/2009, 12/2008, 02/11/2006, Additional history exists *BISPHONATE OR OTHER ACCEPTABLE MEDICATION NEEDED FOR OSTEOPOROSIS (REFER TO SMARTSET #1146) 08/03/2014 Colonoscopy 02/19/2015 02/19/2010, 01/29/2005 Pneumococcal Vaccine: 65+ Years (3 of 3 - PPSV23 or PCV20) 07/02/2016 05/07/2016, 05/17/2001 DTaP,Tdap,and Td Vaccines (2 - Td or Tdap) 09/19/2025 09/19/2015, 12/09/2005 RETIRED - COLONOSCOPY-EVERY 5 YRS AGES 18-100 Discontinued 02/19/2010, 02/19/2010, 07/05/2006 (Done elsewhere), Additional history exists VITAMIN D LEVEL ONCE IN A LIFETIME-USE SMARTSET# 71773 Completed 01/01/2022 COVID-19 Vaccine Completed 05/13/2023, 08/2021, 01/13/2022, Additional history exists Influenza Vaccine (FLU shot) Completed 05/13/2023, 05/13/2023, 06/02/2022, Additional history exists GARDASIL-HPV IMMUNIZATION SERIES Aged Out No longer eligible based on patient's age to complete this topic Hepatitis B Aged Out No longer eligi ble based on patient's age to complete this topic MENINGOCOCCAL (MENACTRA/MENVEO) Aged Out No longer eligible based on patient's age to complete this topic documented as of this encounter Medical Devices Implanted Type Area [employer] Worker Device Identifier Shelf Expiration Date Model / Serial / Lot Lens Intraoc 23.5 - [id number] - [id number] Implanted:Qty: 1 on 03/08/2018 by Pop Gutierrez MD at OR [facility] Left: Eye BAUSCH [employer] LOMB 09/01/2022 [id number] / [id number] / [id number] Lens Intraoc 21.5 - [id number] - [id number] Implanted:Qty: 1 on 03/22/2018 by Pop Gutierrez MD at OR [facility] Right: Eye BAUSCH & LOMB 10/30/2022 [id number] / [id number] / [id number] documented as of this encounter Visit Diagnoses Diagnosis LBBB (left bundle branch block) Other left bundle branch block 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 Code Status History Code Status Date Activated Date Inactivated Comments Full Code 03/08/2018 7:53 AM 03/08/2018 2:47 PM This or hussain reflects the patients wishes and were consensually agreed upon. Care Teams Drill Foreman Relationship Specialty Start Date End Date Aaron Wolf MD [address] [place] [address] PCP - General Critical Care Medicine 02/26/20 documented as of this encounter
--- OUTSIDE RECORDS SUMMARY | 2023-12-06 23:35 | External Medical Summary | Summary of Care ---
Author Name Unknown Organization [facility] Address [address] [facility] [place] [address] Phone [phone] Care Team Providers Care Shuttle Fitting Supervisor Name Role Phone Aaron Wolf MD Primary Care Provider [phone] Reason for Visit * Reason Comments New Med Request Encounter Details Date Type Department Care Team (Late st Contact Info) Description 11/29/2023 Refill Rheumatology [place] [address] [address] [place] [address] [place] MD [facility] [employer] [place] [address] Dyslipidemia, goal LDL below 160; LBBB (left bundle branch block); Left ventricular outflow tract obstruction; Cardiac outflow obstruction Allergies Active Allergy Reactions Criticality Noted Date Comments Triprolidine-Pseudoephedrin e 05/22/2015 Anefrin Nasal [place] 08/12/2018 Amoxicillin 04/04/2004 Antipyrine 03/09/2006 Rash and blisters Amoxicillin-Pot Clavulanate 03/09/20 14 Bee Stings 04/04/2004 Benzocaine Other (Please comment) 03/08/2018 Headache Citalopram Hydrobromide Other (Please comment) 09/18/2014 Tremors Citalopram 01/08/2003 Clarithromycin 12/08/2001 gi upset Clavulanic Acid Low 05/18/2020 Other reaction(s): Unknown Misoprostol 03/09/2014 Magnesium Citrate Low 05/18/2020 Other reaction(s): projectile vomitting Esomeprazole 12/01/2005 Hydroxychloroquine Sulfate 5 Denosumab High 02/13/2019 Pseudoephedrine Sulfa Antibiotics 10/18/2000 ? rash Sympathomimetics documented as of this encounter (statuses as of 11/30/2023) Medications Medication Sig Dispensed Refills Start Date End Date Status MULTIVITAMIN TABS OR daily 0 2 Active ASPIRIN 81 MG OR CHEW take one tablet daily 100 3 3 Active TYLENOL 500 MG PO CAPS Take by mouth 5 Tablets daily . 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 0 Active LORAzepam (ATIVAN) 0.5 MG TabletIndications: Anxiety state Take 1 Tablet by mouth at bedtime. 180 Tab 0 5 Active Folic Acid 800 MCG Tablet 2mg by mouth once daily 0 6 Active docusate sodium (COLACE) 50 MG Capsule [...] mouth once a week. 108 Tablet 0 04/30/202 4 Active predniSONE 5 MG Oral Tablet (Deltasone) Take 1.5 Tablets by mouth in the morning. 135 Tablet 1 4 Active Metoprolol Succinate ER 50 MG Oral Tablet Extended Release 24 Hour (toPROL XL)Indications:LBB B (left bundle branch block),Left ventricular outflow tract obstruction,Cardia c outflow obstruction TAKE 1 TABLET TWICE A DAY 180 Tablet 3 3 11/30/19 24 Discontinued(Re fill) predniSONE 5 MG Oral Tablet (Deltasone) TAKE 1 AND 1/2 TABLETS IN THE MORNING FOR USAGE IN RHEUMATIC DISEASES 135 Tablet 3 3 11/30/19 24 Discontinued Atorvastatin Calcium 10 MG Oral Tablet (Lipitor)Indicatio ns:Dyslipidemia, goal LDL below 160 TAKE 1 TABLET EVERY MORNING 90 Tablet 3 3 11/30/19 24 Discontinued(Re fill) Methotrexate 2.5 MG Oral Tablet Take 9 Tablets by mouth once a week. 108 Tablet 1 3 11/30/19 24 Discontinued documented as of this encounter (statuses as of 11/30/2023) Active Problems Problem Noted Date Diagnosed Date Rheumatoid arthritis of [facility] sites without rheumatoid factor 09/01/2021 Encounter for [...] MCG/0.3 mL, 12 YRS AND ABOVE, IM (P[employer]ZER-Comirnaty) 05/13/2023 COVID-19, mRNA, LNP-s, PF, B ooster, 100mcg/0.5mg (Moderna) 01/13/2022 Covid-19, Mrna, Lnp-s, Pf, B ivalent, 30 Mcg, IM, 12 yrs and above (Pfizer) 06/02/2022 Pneumococcal Conjugate Vacc, 13 Valent (Prevnar) [...] Never Smokeless Tobacco: Never Comments:passive smoke at [facility] as a child Alcohol Use Standard Drinks/Week [...] Encounter - Darius Metcalf RPh - 11/30/2023 3:25 PM EDTSigned Prescriptions: Disp Refills Methotrexate Sodium 2.5 MG Oral Tablet 108 Ta*0 Sig: Take 9 Tablets by mouth once a week.Authorizing Provider: VALE MARY User: DARIUS METCALF predniSONE 5 MG Oral Tablet (Deltasone) 135 Ta*1 Sig: Take 1.5 Tablets by mouth in the morning.Authorizing Provider: VALE MARY User: DARIUS METCALFRefused Prescriptions:Disp Refills Atorvastatin Calcium 10 MG Oral Tablet (Li* 0 Refused By: David METCALF for Refusal: Managed by another physician Pantoprazole Sodium 40 MG Oral Tablet Melania* 0 Refused By: David METCALF for Refusal: Managed by another physician Metoprolol Succinate ER 50 MG Oral Tablet * 0 Refused By: David METCALF for Refusal: Managed by another physician * Telephone Encounter - Darius Metcalf RPh - 11/30/2023 3:17 PM EDT Rheumatology: Refill Request(s) Per review of the refill parameters, Medication was refilled Rerouted remaining refills Darius Metcalf RPh [facility] Clinical Pharmacist Rheumatology Department 11/30/2023,3:22 PM documented in this encounter Plan of Treatment Upcoming Encounters Date Type Department Care Team (Late st Contact Info) Description 12/15/2023 10:35 AM EDT Cardiac Studies Cardiac Studies, [facility] [address] [facility] [place] [address] 02/24/2024 10:00 AM EDT Office Visit Cardiology, [facility] [address] [facility] [place] [address] Louisa Carrillo CRNP [address] [facility] [place] [address] 04/25/2024 11:00 AM EDT Office Visit Rheumatology [place] [address] [address] [place] [address] [place] MD [facility] [employer] [place] [address] Health Maintenance Due Date Last Done Comments [...] D LEVEL ONCE IN A LIFETIME-USE SMARTSET# 51119 Completed 01/01/2022 COVID-19 Vaccine Completed 05/13/2023, 08/2021, [...] this encounter Medical Devices Implanted Type Area Take Down Inspector Device Identifier Shelf Expiration Date Model / Serial / Lot Lens Intraoc 23.5 - [id number] - [id number] Implanted:Qty: 1 on 03/08/2018 by Pop Gutierrez MD at OR [facility] Left: Eye BAUSCH [employer] LOMB 09/01/2022 [id number] / [id number] / [id number] Lens Intraoc 21.5 - [id number] - [id number] Implanted:Qty: 1 on 03/22/2018 by Pop Gutierrez MD at OR [facility] Right: Eye BAUSCH & LOMB 10/30/2022 [id number] / [id number] / [id number] documented as of this encounter Visit Diagnoses Diagnosis Dyslipidemia, goal LDL below 160 Other and unspecified hyperlipidemia LBBB (left bundle branch block) Other left bundle branch block 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 Care Teams Shuttle Fitting Supervisor Relationship Specialty Start Date End Date Aaron Wolf MD [address] [place] [address] PCP - General Critical Care Medicine 02/26/20 documented as of this encounter
--- OUTSIDE RECORDS SUMMARY | 2023-12-06 23:35 | External Medical Summary ---
Author Name Unknown Address Unknown Organization K01:LABORATORY [facility] - [address] [facility] [place] [address] Laboratory Report Ordering Provider Test Date Status USMAN COLLAZO 10/07/2023 07:58:40 Final Observation Date Value Abnormality Reference (Units ) Status SYNC LEUKOCYTES IN BLOOD BY AUTOMATED COUNT 10/07/2023 07:58:40 7.34 4.00-10.80 (K/uL) Final Segs 10/07/2023 07:58:40 63.4 40.0-75.0 (%) Final Lymphs % 10/07/2023 07:58:40 27.8 18.0-42.0 (%) Final Monos 10/07/2023 07:58:40 6.5 1.0-11.0 (%) Final Eosinophils 10/07/2023 07:58:40 1.6 0.0-6.0 (%) Final Basos 10/07/2023 07:58:40 0.3 0.0-2.0 (%) Final Immature Granulocyte, Percent 10/07/2023 07:58:40 0.4 0.0-2.0 (%) Final Absolute Segs 10/07/2023 07:58:40 4.65 1.80-7.70 (K/uL) Final Lymphs, absolute 10/07/2023 07:58:40 2.04 1.00-4.80 (K/ul) Final Monos, Abs 10/07/2023 07:58:40 0.48 0.00-1.10 (K/uL) Final Eos, Abs 10/07/2023 07:58:40 0.12 0.00-0.70 (K/uL) Final Basos, Abs 10/07/2023 07:58:40 0.02 0.00-0.20 (K/uL) Final Immature Granulocytes, Number 10/07/2023 07:58:40 0.03 0.00-0.20 (K/uL) Final Performing Location LABORATORY [facility] - [address] [facility] [address]
--- OUTSIDE RECORDS SUMMARY | 2023-12-06 23:35 | External Medical Summary | Summary of Care ---
Author Name Unknown Organization [facility] Address [address] [facility] [place] [address] Phone [phone] Care Team Providers Care Plastic Boat Buffer Name Role Phone Aaron Wolf MD Primary Care Provider [phone] Reason for Visit * Reason Comments Rheum Follow Up Recheck RA Encounter Details Date Type Department Care Team (Late st Contact Info) Description 07/13/2023 10:40 AM EST Office Visit Rheumatology [place] [address] [address] [place] [address] Bethel Jones MD [facility] [employer] [place] [address] Rheumatoid arthritis of multiple sites without rheumatoid factor (HCC)*; Encounter for therapeutic drug monitoring; Senile osteoporosis Allergies Active Allergy Reactions Criticality Noted Date Comments Triprolidine-Pseudoephedrin e 05/22/2015 Anefrin Nasal [place] 08/12/2018 Amoxicillin 04/04/2004 Antipyrine 03/09/2006 Rash and [...] as of this encounter (statuses as of 07/13/2023) Medications Medication Sig Dispensed Refills Start Date End Date Status MULTIVITAMIN TABS OR daily 0 10/31/2001 Acti ve ASPIRIN 81 MG OR CHEW take one tablet daily 100 3 10/19/2002 Active TYLENOL 500 MG PO CAPS Take by mouth 5 Tablets daily . 0 04/09/2006 Active FLONASE INHA 50 MCG/DOSE NAIndications:Chronic sinusitis two sprays each nostril once daily [...] . 0 Active LORAzepam (ATIVAN) 0.5 MG TabletIndications:Anx iety state Take 1 Tablet by mouth at [...] Takes Lactaid as needed 0 Active Methotrexate 2.5 MG Oral Tablet Take 9 Tablets by mouth once a week. 108 Tablet 1 02/24/2023 Active Metoprolol Succinate ER 50 MG Oral Tablet Extended Release 24 Hour (toPROL XL)Indications:LBBB (left bundle branch block),Left ventricular outflow tract obstruction,Cardiac outflow obstruction TAKE 1 TABLET TWICE A DAY 180 Tablet 3 04/15/2023 Active predniSONE 5 MG Oral Tablet (Deltasone) TAKE 1 AND 1/2 TABLETS IN THE MORNING FOR USAGE IN RHEUMATIC DISEASES 135 Tablet 3 04/19/2023 Active Atorvastatin Calcium 10 MG Oral Tablet (Lipitor)Indications: Dyslipidemia, goal LDL below 160 TAKE 1 TABLET EVERY MORNING 90 Tablet 3 04/15/2023 Active documented as of this encounter (statuses as of 07/13/2023) Active Problems Problem Noted Date Diagnosed Date Rheumatoid arthritis of [facility] without rheumatoid factor 09/01/2021 Encounter for [...] as of this encounter (statuses as of 07/13/2023) Resolved Problems Problem Noted Date Diagnosed Date Resolved Date PURE HYPERCHOLESTEROLEM 01/13/200507/02 Overview: Per Lipid Taxonomy. 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 factor 09/01/19 22 Mitral valve prolapse 2011 documented as of this encounter (statuses as of 07/13/2023) Immunizations Name Administration Dates Next Due COVID-19 [...] Date Smoking Tobacco: Never Smokeless Tobacco: Never Tobacco Cessation:Counseling Given: Not Answered Comments:no passive smoke at home Alcohol Use Standard Drinks/Week Comments No 0 (1 standard drink = 0.6 oz pur e alcohol) Sex and Gender Information Value Date Recorded Sex Assigned at Not on file Gender Identity Not on file Sexual Orientation Not on file Job Start Date Occupation Industry Not on file Not on file Not on file documented as of this encounter Last Filed Vital Signs Vital Sign Reading Time Taken Comments Blood Pressure 110/50 07/13/2023 10:55 AM EST Pulse - - Temperature 36.3 C (97.3 F) 07/13/2023 10:[address] Respiratory Rate - - Oxygen Saturation - - Inhaled Oxygen Concentration - - Weight 48.5 kg (107 lb) 07/13/2023 10:55 AM EST Height - - Body Mass Index 20.9 04/03/2022 1:23 PM EDT documented in this encounter Progress Notes * Bethel Jones MD - 07/13/2023 11:06 AM EST Images from the original note were not included. Assessment and Plan Rheumatoid arthritis of multiple sites without rheumatoid factor (HCC) - CBC with WBC Differential; Standing - Comprehensive Metabolic Panel; Standing Encounter for therapeutic drug monitoring - CBC with WBC Differential; Standing - Comprehensive Metabolic Panel; Standing Senile osteoporosis Overall her rheumatoid arthritis appears relatively stable. Will continue with her current medications. Can move labs every 6 months but get labs in September. Return to clinic next fall. Rheumatology Synopsis: [facility] RA SYNOPSIS Date of RA Diagnosis: [birth year] (07/13/2023 11:00 AM) Current Treatment: MTX (07/13/2023 11:00 AM) Previous Treatment: -- (gold treatment) (07/13/2023 11:00 AM) 2009 Classification Criteria: Y (07/13/2023 11:00 AM) Seropositive or seronegative: Seronegative (07/13/2023 11:00 AM) Disease activity: Controlled Patient History History of Present Illness HPI:82 year old female presented to rheumatology clinic for Rheum Follow Up (Recheck RA) She has noted some increasing stiffness to her right hand and noted more nodularity to her palm over the flexor tendon. Noted some nodules to the knuckles as well. Had labs las week that were ok for CMP. CBC not done. Noting more fatigue as well. She is not been doing in physical therapy at [facility] lately. 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 She is not exercising. Has had issues with osteoporosis medications in the past. Has many drug allergies listed. ROS: Review of Systems was asked and the following other significant symptoms are present: Muscle weakness, fatigue, joint pain Rheumatology History Subjective Patient's past history, medications, and allergies were reviewed. Objective Physical Exam BP 110/50 | Temp 36.3 C (97.3 F) (Infrared ) | Wt 48.5 kg (107 lb) | BMI 20.90 kg/m | BSA 1.43 m Constitutional: no acute distress HEENT: normal: normocephalic, atraumatic; no masses, tenderness, or adenopathy Eyes: PERRLA, sclera and conjunctiva normal Neck: supple, no adenopathy CV: normal rate and rhythm, no murmur, gallops or rub Chest: normal respiratory effort, lungs clear to auscultation and percussion Abdomen: normal: soft, bowel sounds normal, no masses, tenderness or organomegaly Musculoskeletal: No synovitis or dactylitis noted to the hands. Neuro: alert, tremor noted to the chin as well as hands at times. MSK/Joint exam (Homunculus) MSK Exam findings: Homunculus exam Studies: Labs and Imaging studies reviewed with pertinent findings noted below: Disease Treatment Response CDAI Scoring Patient Global: 70 mm Provider Global: 20 mm Tender (HERRERA-28): 0 / 28 Swollen (HERRERA-28): 0 / 28 CDAI: 9 CDAI (Clinical Disease Activity Index) [facility] Outcomes measures: Serial CDAI: Synopsis SmartLink 07/13/2023 10:40 CDAI CDAI 9 - Serial CDAI: - Yes - Remission: - Yes - low disease activity Currently on csDMARD: Yes Currently on Biologic DMARD: No Vaccination status: COVID: Vaccine Series Complete Influenza:Vaccine complete for this season Pneumococcal:Vaccine and/or Health maintainance status Incomplete Zoster:Vaccine and/or Health Maintainance Incomplete Last Hepatitis and TB testing: Hepatitis B: Not Tested, results not available Hepatitis C: Not Tested, results not available PPD or TB-Gold: Not Tested, results not available No results found for: "HBSAG", "HEPB", "HCVAB" No results found for: "TB GOLD AG NIL", "TB GOLD MITOGEN NIL", "PPD INDURATION", "PPD-OUTSIDE LAB","QUANTIFERON GOLD TB", "QUANTIFERON-TB PLUS", "QUANTIFERON-TB PLUS,1T", "QUANTIFERON-TB PLUS,4T" Wrap-Up Follow Up: Return in about 9 months (around 04/13/2024). documented in this encounter Nursing Notes * Shantel Fields LPN - 07/13/2023 10:51 AM EST Chief Complaint Patient presents with Rheum Follow Up Recheck RA documented in this encounter Plan of Treatment Upcoming Encounters Date Type Department Care Team (Late st Contact Info) Description 11/25/2023 10:00 AM EDT Office Visit Cardiology, [facility] [address] [place] [address] Louisa Carrillo CRNP [address] [place] [address] 04/12/2024 1:00 PM EDT Office Visit Rheumatology [place] [id number] [place] [address] Bethel Jones MD [facility] [address] [place] [address] Scheduled Orders Name Type Priority Associated Diagnoses Orde r Schedule CBC WITH WBC DIFFERENTIAL Lab Routine Rheumatoid arthritis of multiple sites without rheumatoid factor (HCC) Encounter for therapeutic drug monitoring Every 6 Months for 2 Occurrences starting 07/13/2023 until 07/13/2024 COMPREHENSIVE METABOLIC PANEL Lab Routine Rheumatoid arthritis of multiple sites without rheumatoid factor (HCC) Encounter for therapeutic drug monitoring Every 6 Months for 2 Occurrences starting 07/13/2023 until 07/13/2024 Health Maintenance Due Date Last Done Comments Depression Screening 1952 Zoster Vaccines (1 of 2) 1960 DXA Scan 05/07/2011 05/07/2009, 12/2008, 02/11/2006, Additional history exists *BISPHONATE OR OTHER ACCEPTABLE MEDICATION NEEDED FOR OSTEOPOROSIS (REFER TO SMARTSET #1146) 08/03/2014 COLONOSCOPY-EVERY 5 YRS AGES 18-100 02/19/2015 02/19/2010, 02/19/2010, 07/05/2006 (Done elsewhere), Additional history exists Pneumococcal Vaccine: 65+ Years (3 - PPSV23 or PCV20) 05/07/2017 05/07/2016, 05/17/2001 DTaP,Tdap,and Td Vaccines (2 - Td or Tdap) 09/19/2025 09/19/2015, 12/09/2005 VITAMIN D LEVEL ONCE IN A LIFETIME-USE SMARTSET# 99628 Completed 01/01/2022 COVID-19 Vaccine Completed 05/13/2023, 08/2021, 01/13/2022, Additional history exists Influenza Vaccine (FLU shot) Completed 07/2023, 05/13/2023, 06/02/2022, Additional history exists GARDASIL-HPV IMMUNIZATION SERIES Aged Out No longer eligible based on patient's age to complete this topic Hepatitis B Aged Out No longer eligi ble based on patient's age to complete this topic MENINGOCOCCAL (MENACTRA/MENVEO) Aged Out No longer eligible based on patient's age to complete this topic documented as of this encounter Medical Devices Implanted Type Area Degreasing Solution Reclaimer Device Identifier Shelf Expiration Date Model / Serial / Lot Lens Intraoc 23.5 - [id number] - [id number] Implanted:Qty: 1 on 03/08/2018 by Pop Gutierrez MD at [facility] Left: Eye [employer]OM[employer] 09/01/2022 [id number] / [id number] / [id number] Lens Intraoc 21.5 - [id number] - [id number] Implanted:Qty: 1 on 03/22/2018 by Pop Gutierrez MD at [facility] Right: Eye BAUSCH & LOMB 10/30/2022 [id number] / [id number] / [id number] documented as of this encounter Visit Diagnoses Diagnosis Rheumatoid arthritis of multiple sites without rheumatoid factor (HCC)- Primary Rheumatoid arthritis Encounter for therapeutic drug monitoring Senile osteoporosis documented in this encounter Advance Directives Documents on File Type Date Recorded Patient Focuser Expl anation Advance Directives and Living Will 11/14/2003 Power of Rotating Equipment Specialist 11/14/2003 Latest Code Status on File Code [...] and were consensually agreed upon. Care Teams Plastic Boat Buffer Relationship Specialty Start Date End Date Aaron Wolf MD [address] [place] [address] PCP - General Critical Care Medicine 02/26/20 documented as of this encounter
--- OUTSIDE RECORDS SUMMARY | 2023-12-06 23:35 | External Medical Summary ---
Author Name Unknown Address Unknown Organization K01:[facility] - [facility] [address] [place] [address] Laboratory Report Ordering Provider Test Date Status VALEUSMAN 10/07/2023 07:58:40 Final Observation Date Value Abnormality Reference (Units ) Status WBC, Total 10/07/2023 07:58:40 7.34 4.00-10.8 0 (K/uL) Final RBC 10/07/2023 07:58:40 4.16 3.85-5.15 (M/uL) Final Hemoglobin 10/07/2023 07:58:40 13.1 12.0-15.3 (g/dL) Final HCT 10/07/2023 07:58:40 41.2 36.0-45.2 (%) Final MCV 10/07/2023 07:58:40 99.0 81.5-97.5 (fL) Final MCH 10/07/2023 07:58:40 31.5 27.0-34.0 (pg) Final MCHC 10/07/2023 07:58:40 31.8 32.0-36.0 (g/dL) Final RDW 10/07/2023 07:58:40 15.1 11.5-15.5 (%) Final Platelets 10/07/2023 07:58:40 Final Adequate platelets seen on s lide. Cannot quantitate due to platelet clumping.
MPV 10/07/2023 07:58:40 12.2 6.6-11.1 ( fL) Final Nucleated erythrocytes/100 leukocytes [Ratio] in Blood by Automated count 10/07/2023 07:58:40 0 <=0 (/100 WBCs) Fi nal Performing Location [facility] - [address] [place] [address]
--- OUTSIDE RECORDS SUMMARY | 2023-12-06 23:35 | External Medical Summary | Summary of Care ---
Author Name Unknown Organization [facility] Address [address] [facility] [place] [address] Phone [phone] Care Team Providers Care Fish Checker Name Role Phone Aaorn Wolf MD Primary Care Provider [phone] Encounter Details Date Type Department Care Team (Late st Contact Info) Description 07/08/2023 Telephone Rheumatology [place] [address] [address] Bethel Jones MD [address] [place] [address] Allergies Active Allergy Reactions Criticality Noted Date Comments Triprolidine-Pseudoephedrin e 05/22/2015 Anefrin Nasal [place] 08/12/2018 Amoxicillin 04/04/2004 Antipyrine 03/09/2006 Rash and [...] as of this encounter (statuses as of 07/08/2023) Medications Medication Sig Dispensed Refills Start Date [...] as of this encounter (statuses as of 07/08/2023) Active Problems Problem Noted Date Diagnosed Date Rheumatoid arthritis of [facility] without rheumatoid factor 09/01/2021 Encounter [...] as of this encounter (statuses as of 07/08/2023) Resolved Problems Problem Noted Date Diagnosed Date Resolved Date PURE HYPERCHOLESTEROLEM 01/13/200507/02 Overview: Per Lipid Taxonomy. 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 factor 09/01/19 22 Mitral valve prolapse 2011 documented as of this encounter (statuses as of 07/08/2023) Immunizations Name Administration Dates Next Due COVID-19 [...] Pneumococcal Conjugate Vacci ne, 7 Valent 12/09/2005 Seasonal Influenza Virus Vac cine, Unspecified Formulation [...] Date Smoking Tobacco: Never Smokeless Tobacco: Never Comments:no passive smoke at home Alcohol Use [...] encounter Miscellaneous Notes * Telephone Encounter - Caitlin Tavarez PHARM Tech - 07/08/2023 2:02 PM EST Pt called requesting refill for methotrexate which is prescribed by rheum. Transferred pt to specialty line. Thanks, Caitlin Tavarez Director [employer] [facility] 07/08/2023,2:03 PM documented in this encounter Plan of Treatment Upcoming Encounters Date Type Department Care Team (Late st Contact Info) Description 07/13/2023 10:40 AM EST Office Visit Rheumatology [facility] [address] [place] [address] Bethel Jones MD [address] [place] [address] 11/25/2023 10:00 AM EDT Office Visit Cardiology, [facility] [address] [place] [address] Louisa Carrillo CRNP [address] [place] [address] Health Maintenance Due Date Last Done Comments [...] D LEVEL ONCE IN A LIFETIME-USE SMARTSET# [id number] Completed 01/01/2022 COVID-19 Vaccine Completed 05/13/2023, 08/2021, 01/13/2022, Additional history exists Influenza Vaccine (FLU shot) Completed 07/2023, 06/02/2022, 05/10/2021, Additional history exists GARDASIL-HPV IMMUNIZATION SERIES Aged Out No longer eligible based on patient's age to complete this topic Hepatitis B Aged Out No longer eligi ble based on patient's age to complete this topic MENINGOCOCCAL (MENACTRA/MENVEO) Aged Out No longer eligible based on patient's age to complete this topic documented as of this encounter Medical Devices Implanted Type Area Public Health Representative Device Identifier Shelf Expiration Date Model / Serial / Lot Lens Intraoc 23.5 - [id number] - [id number] Implanted:Qty: 1 on 03/08/2018 by Pop Gutierrez MD at [facility] Left: Eye [employer]CH [employer]OM[employer] 09/01/2022 [id number] / [id number] / [id number] Lens Intraoc 21.5 - [id number] - [id number] Implanted:Qty: 1 on 03/22/2018 by Pop Gutierrez MD at [facility] Right: Eye [employer]OM[employer] 10/30/2022 [id number] / [id number] / [id number] documented as of this encounter Advance Directives Documents on File Type Date Recorded Patient Hr Coordinator Expl anation Advance Directives and Living Will 11/14/2003 Power of Cosmetic Account Coordinator 11/14/2003 Latest Code Status on File Code [...] and were consensually agreed upon. Care Teams Fish Checker Relationship Specialty Start Date End Date Aaron Wolf MD [address] [place] [id number] PCP - General Critical Care Medicine 02/26/20 documented as of this encounter
--- OUTSIDE RECORDS SUMMARY | 2023-12-06 23:35 | External Medical Summary | Summary of Care ---
Author Name Unknown Organization [facility] Address [address] [place] [address] Phone [phone] Care Team Providers Care Chief Engineer Drilling And Recovery Name Role Phone Aaron Wolf MD Primary Care Provider [phone] Reason for Referral * Precert (Within 10 days (routine)) - Authorized Specialty Diagnoses / Procedures Referred By Contac t Referred To Contact Cardiac Studies Diagnoses Hypertrophic obstructive cardiomyopathy (HOCM) ([facility]) Procedures ECHO, COMPLETE (2D), TRANS-THORACIC Louisa Carrillo CRNP [address] [place] [address] Referral ID Status Reason Start Date Expiration Date V isits Requested Visits Authorized [id number] Authorized Precert 11/25/2023 999 999 Reason for Visit * Reason Comments Follow Up Encounter Details Date Type Department Care Team (Latest Contact Info) Description 11/25/2023 10:00 AM EDT Office Visit Cardiology, [facility] [address] [place] [id number] Louisa Carrillo CRNP [address] [place] [id number] Hypertrophic obstructive cardiomyopathy (HOCM) ([facility])* Allergies Active Allergy Reactions Criticality Noted Date Comments Triprolidine-Pseudoephedrin e 05/22/2015 Anefrin Nasal Sparkman 08/12/2018 Amoxicillin 04/04/2004 Antipyrine 03/09/2006 Rash and [...] as of this encounter (statuses as of 11/25/2023) Medications Medication Sig Dispensed Refills Start Date [...] . Takes Lactaid as needed 0 Active Metoprolol Succinate ER 50 MG Oral [...] EVERY MORNING 90 Tablet 3 04/15/2023 Active Methotrexate 2.5 MG Oral Tablet Take 9 Tablets by mouth once a week. 108 Tablet 1 07/13/2023 Active documented as of this encounter (statuses as of 11/25/2023) Active Problems Problem Noted Date Diagnosed Date Rheumatoid arthritis of [facility] sites without rheumatoid factor 09/01/2021 Encounter for [...] as of this encounter (statuses as of 11/25/2023) Resolved Problems Problem Noted Date Diagnosed Date Resolved Date PURE HYPERCHOLESTEROLEM 01/13/200507/02 Overview: Per Lipid Taxonomy. 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 factor 09/01/19 Mitral valve prolapse 2011 documented as of this encounter (statuses as of 11/25/2023) Immunizations Name Administration Dates Next Due COVID-19 mRNA, LNP-s, No Pre serve, 2-Dose Series (Moderna) 04/28/2021,10/22/2020,09/24/2020 COVID-19, MRNA-LNP, 23-24, P F, 30 MCG/0.3 mL, 12 YRS AND ABOVE, IM (PFIZER-Comirnat) 05/13/2023 COVID-19, mRNA, LNP-s, PF, B ooster, 100mcg/0.5mg (Moderna) 01/13/2022 Covid-19, Mrna, Lnp-s, Pf, B ivalent, 30 Mcg, IM, 12 yrs and above (TrafficCast) 06/02/2022 Pneumococcal Conjugate Vacc, 13 Valent (Prevnar) 05/07/2016 Pneumococcal Conjugate Vacci ne, 7 Valent 12/09/2005 Pneumococcal Polysaccharide PPV23 (Pneumovax) 05/17/2001 RSV Vac., Recomb, Adjuvant, PF,0.5 Ml (Arexvy) 06/05/2023 Season Influenza, Quad, PF, Adjuvanted, 65+ Yrs, IM (FLUAD) 05/13/2023 Seasonal Influenza Virus Vac cine, Unspecified Formulation 05/19/2016,05/26/2005,05/23/2004,05/02,06/29/2000 Seasonal Influenza, Quadriva lent Hd, 65+ Yrs 05/13/2023,06/02/2022,05/10/2021,04/2020 Seasonal Influenza, Quadriva lent, No Preserve, IM 05/08/2015 Seasonal Influenza, Split, I IV3, With Preserve, Inj 05/19/2016,05/26/2005,05/23/2004,05/02,06/29/2000 07/06/2001 Seasonal Influenza, Trivalen t, Adjuvanted, 65+ yrs 05/11/2019 Seasonal Influenza, Trivalen t, High Dose, No Preserve, IM 05/10/2020 TD - Tetanus/Diptheria (ADULT) 12/09/2005 TDAP (age 11 and older)(Adacel) 09/19/2015 documented as of this encounter Social History Tobacco Use Types Packs/Day Years Used Date Smoking Tobacco: Never Smokeless Tobacco: Never Tobacco Cessation:Counseling Given: Not Answered Comments:passive smoke at home as a child Alcohol Use Standard Drinks/Week [...] Sign Reading Time Taken Comments Blood Pressure 118/68 11/25/2023 9:47 AM EDT Pulse 62 11/25/2023 9:47 AM EDT Temperature - - Respiratory Rate - - Oxygen Saturation 97% 11/25/2023 9:47 AM EDT Inhaled Oxygen Concentration - - Weight 49 kg (108 lb) 11/25/2023 9:47 AM EDT Height - - Body Mass Index 21.09 04/03/2022 1:23 PM EDT documented in this encounter Progress Notes * Louisa Carrillo CRNP - 11/25/2023 10:00 AM EDT Cardiology Outpatient Visit 11/25/2023 Primary Sweeping Compound Blender: Dr. Espinal Past medical history: Hypertrophic cardiomyopathy with outflow track obstruction and LEYDA of mitral valve with mitral regurgitation Left bundle-branch block Dyslipidemia Severe rheumatoid arthritis, follows with rheumatology--on methotrexate and prednisone Osteoporosis Pectus excavatum HPI 82-year-old female presenting to the cardiology office today in routine follow- up. Was last evaluated by Dr. Espinal approximately 6 months ago. Patient carries a history of hypertrophic cardiomyopathy with outflow track obstruction and LEYDA. Ather last appointment she was feeling well without any progression of cardiac symptoms. On 11/09/2023 patient was at home lying in bed and had symptoms tachy-palpitations and shortness of breath. Symptoms were accompanied by some nausea/hot flash where she took a Zofran with transient relief. Symptoms returned and she took an extra dose of metoprolol. She then became very weak and fatigued and had to rest. Symptoms gradually improved throughout the morning. A similar situation happened to this morning though was not quite as "strong". She did take an extra metoprolol with symptomatic improvement. Currently patient feels well not having any palpitations or shortness of breath and office. She denies any lightheadedness or dizziness. No exertional chest pain. No orthopnea, PND, or increased lower extremity edema. No fever, chills, cough, hematochezia, melena, or hemoptysis. Admits to not staying well hydrated. Her is 89 and has recently been diagnosed with dementia. They will be requiring more help in the household and this has caused her some stress. Patient is compliant with all medications, and offers no side effects. Current Outpatient Medications Medication Sig Dispense Refill MULTIVITAMIN TABS OR daily 0 ASPIRIN 81 MG OR CHEW take one tablet daily 100 3 TYLENOL 500 MG PO CAPS Take by mouth 5 Tablets daily . 0 FLONASE INHA 50 MCG/DOSE NA two sprays each nostril once daily 3 0 VITAMIN D 1000 UNIT PO TABS one tablet daily CALCIUM + D 600-200 MG-UNIT PO TABS one tablet 1 times per day CETIRIZINE HCL 10 MG PO TABS one daily Melatonin 3 MG Oral Capsule Take 3 Capsules by mouth at bedtime. PROTONIX 40 MG PO TBEC 1 tab once daily CIPRODEX 0.3-0.1 % OT SUSP Administer into ears . LORAzepam (ATIVAN) 0.5 MG Tablet Take 1 Tablet by mouth at bedtime. 180 Tab 0 Folic Acid 800 MCG Tablet 2mg by mouth once daily docusate sodium (COLACE) 50 MG Capsule Take by mouth 2 times a day. Senna 30 MG MISC Take 2 Tabs by mouth. Methylcellulose (Laxative) Oral Powder Take by mouth daily. Ondansetron 4 MG Oral Tablet Disintegrating Place 1 Tablet on tongue every 8 hours as needed for Nausea. dissolve on tongue. traMADol (ULTRAM) 50 MG Tablet Take 1 Tablet by mouth every 6 hours as needed for Pain. Calcium Carbonate Antacid 500 MG Oral Tablet Chewable Take 1 Tablet by mouth in the morning. Magnesium Hydroxide 400 MG/5ML Oral Suspension Take by mouth daily as needed for Constipation. Soothe XP Ophthalmic Solution Instill into eye 2 times a day. Instill one drop in each eye twice per day NATURAL SUPPLEMENT Take by mouth daily . Takes Lactaid as needed Metoprolol Succinate ER 50 MG Oral Tablet Extended Release 24 Hour (toPROL XL) TAKE 1 TABLET TWICE A DAY 180 Tablet 3 predniSONE 5 MG Oral Tablet (Deltasone) TAKE 1 AND 1/2 TABLETS IN THE MORNING FOR USAGE IN RHEUMATIC DISEASES 135 Tablet 3 Atorvastatin Calcium 10 MG Oral Tablet (Lipitor) TAKE 1 TABLET EVERY MORNING 90 Tablet 3 Methotrexate 2.5 MG Oral Tablet Take 9 Tablets by mouth once a week. 108 Tablet 1 No current facility-administered medications for this visit. Past Medical History: Diagnosis Date Acute sinusitis Acute Sinusitis, Unspecified Carpal tunnel syndrome Diaphragmatic hernia Mitral valve disorder Obsessive-compulsive disorder Osteoporosis Past Surgical History: Procedure Laterality Date BREAST LESION,OTHER,EXCISION 05/20/2009 Needle localized right breast biopsy (benign) 05/20/09, [facility], Dr. Whelan COLONOSCOPY 12/31/2004 repeat 5 years COLORECTAL CANCER SCREEN; COLON 02/19/2010 diverticulosis repeat in 5 years INCISION OF EARDRUM Myringotomy INFORMATION cyst removed from eye INFORMATION arthritic area removed from left middle finger and base LUMBAR SPINE FUSION, POST INTERBODY spinal fusion and saray placement REMOVAL OF APPENDIX REMOVAL OF TONSILS, UNDER AGE 12 REMOVE CATARACT, INSERT LENS PROSTH Left 03/08/2018 left EXTRACAPSULAR CATARACT REMOVAL WITH INTRAOCULAR LENS performed by Pop Gutierrez MD at [facility] REMOVE CATARACT, INSERT LENS PROSTH Right 03/22/2018 right EXTRACAPSULAR CATARACT REMOVAL WITH INTRAOCULAR LENS performed by Pop Gutierrez MD at OR [facility] REMOVE VULVA GLAND/LESION bartholin's SMALL BOWEL ENDOSCOPY W/BX 02/19/2010 bxs path shows mild inflammation at the end of esophagus consistant with acid reflux, no evidence of Barretts, mild irritation of the stomach without evidence of H Pylori. path of small bowel negative for celiacs disease. Social History Tobacco Use Smoking status: Never Smokeless tobacco: Never Tobacco comments: passive smoke at home as a child Vaping Use Vaping Use: Never used Substance Use Topics Alcohol use: No Drug use: No Review of patient's allergies indicates: Allergen Reactions Prolia [Denosumab] Actifed [Triprolidine-Pseudoephedrine] Afrin 12 Hour [Anefrin Nasal Sparkman] Amoxicillin Antipyrine Rash and blisters Augmentin [Amoxicillin-Pot Clavulanate] Bee Stings Benzocaine Other (Please comment) Headache Celexa [Citalopram Hydrobromide] Other (Please comment) Tremors Citalopram Clarithromycin gi upset Cytotec [Misoprostol] Nexium [Esomeprazole] Plaquenil [Hydroxychloroquine Sulfate] Pseudoephedrine Sulfa Antibiotics ? rash Sympathomimetics Clavulanic Acid Other reaction(s): Unknown Magnesium Citrate Other reaction(s): projectile vomitting Review of Systems: See HPI for pertinent positives. All others negative, other than those noted in HPI. Physical Exam BP 118/68 | Pulse 62 | Wt 49 kg (108 lb) | SpO2 97% | BMI 21.09 kg/m | BSA 1.44 m General: No acute distress. A+Ox3. HEENT: Normocephalic. Atraumatic. Conjunctiva and sclera clear. NECK: No carotid bruits. No JVD. Carotid upstrokes are brisk. Heart: RRR. S1 and S2 noted. +3/6 systolic murmur. Lungs: Clear to auscultation. No wheezes, rhonchi, rales. Abdomen: Normal bowel sounds. Soft. Nontender. No masses or organomegaly. No abdominal bruits. Extremities: No edema. No clubbing or cyanosis. Pulses: radial=2/4, posterior tibial=2/4, dorsalis pedis = 2/4. NEURO: No focal deficits. PSYCH: Normal. Lab data/imaging study review: [facility] 09/2022 Patient had a min HR of 53 bpm, max HR of 167 bpm, and avg HR of 70 bpm. Predominant underlying rhythm was Sinus Rhythm. Bundle Branch Block/IVCD was present. 27 Supraventricular Tachycardia runs occurred, the run with the fastest interval lasting 5 beats with a max rate of 167 bpm, the longest lasting 14 beats with an avg rate of 112 bpm. Some episodes of Supraventricular Tachycardia may be possible Atrial Tachycardia with variable block. Isolated SVEs were occasional (1.3%, 9323), SVE Couplets were rare (<1.0%, 124), and SVE Triplets were rare (<1.0%, 29). Isolated VEs were occasional (1.2%, 8029), VE Couplets were rare (<1.0%, 2), and no VE Triplets were present. Ventricular Bigeminy was present. 3 patient triggered events and 1 diary event was submitted. Events correlate with sinus rhythm, sinus rhythm with artifact, and sinus rhythm with PACs. Echo 05/2022 The examination is adequate to evaluate the referral indication. The qualitative LV ejection fraction is 65-69% (normal). The left cavity size is small. There is focal septal thickening which narows the left ventricular outflow tract. The LV wall thickness is severely increased (concentric). The resting peak instantaneous left ventricular outflow tract gradient is 25-30 mm Hg. The left ventricular diastolic function is mildly abnormal (grade I). Moderate mitral regurgitation is present. There is severe mitral annular calcification. Impression/Plan: This is an 82 year old female who is being evaluated in the cardiology office for ongoing care/riskmanagement for the below diagnoses. 1. Hypertrophic obstructive cardiomyopathy (HOCM) (HCC) 2. Left ventricular outflow tract obstruction -Hypertrophic cardiomyopathy with outflow track obstruction and LEYDA of mitral valve with mitral regurgitation 1. Continue metoprolol succinate 50 mg twice daily--will complete a 14 day Zio monitor to rule out concerning/sustained dysrhythmias (e VT). May benefit from an increase in beta-yasmeen dosage. 2. Update resting echocardiogram to reassess LV systolic function and LV outflow track. Given HCM and LVOT obstructions 3. Avoid afterload reducing medications. Encouraged adequate hydration. 4. Low threshold to complete a nuclear stress test. 3. LBBB (left bundle branch block) -Chronic, EKG unchanged from prior. -No evidence of worsening conduction system disease per Zio monitor did 09/2022 Repeat echo as stated above 4. Dyslipidemia, LDL goal below 70 -LDL well controlled, 48 1. Continue atorvastatin 10 mg daily The patient agrees to the above plan and will call with additional questions or concerns. ER with all emergencies advised. Follow-up: Return in about 3 months (around 02/24/2024). | Check-out note: Echo at within the next month. Do after her 14 day zio is complete. I spent a total of 40 minutes on the date of service in preparation, delivery, and documentation ofthe care provided to Vane Carlton excluding any time spent in the performance of separately billed services. SULMA Perez, Department of Cardiology This chart was completed in part utilizing Spot[employer]ter Speech Voice Recognition Software. Grammatical errors, random word insertions, prounoun errors, and incomplete sentences are an occasional consequence of this system due to software limitations, ambient noise, and hardware issues. Any formal questions or concerns about the content, text, or information contained within the body of this dictation should be directly addressed to the provider for clarification. documented in this encounter Nursing Notes * Diana Fox CMA - 11/25/2023 9:45 AM EDT Examination Room: 4 Name: Vane Carlton Date of : (1940) Reason for Visit: 6m Interim Hospitalization(s): none Problems/Concerns: denied Chest Pain/SOB: see note My [facility] is a way you can talk to your provider online through e-mail. Would you like to sign up? I can activate it for you? DECLINES Patient was instructed to not get up on the exam table until directed and assisted by their provider; patient is to remain seated in the chair/ wheelchair/ exam table for fall prevention and safety reasons. Patient is aware to have assistance to step down off exam table with personnel. Patient voiced full comprehension of instructions. documented in this encounter Plan of Treatment Upcoming Encounters Date Type Department Care Team (Latest Contact Info) Description 11/25/2023 1:15 PM EDT Cardiac Studies Cardiac Studies, [facility] [address] [place] [id number] Hypertrophic obstructive cardiomyopathy (HOCM) ([facility]) 04/25/2024 11:00 AM EDT Office Visit Rheumatology [facility] [address] [place] [address] Bethel Jones MD [address] [place], [place] [id number] Scheduled Orders Name Type Priority Associated Diagnoses Orde r Schedule ECHO, COMPLETE (2D), TRANS-THORACIC Echocardiology Routine Hypertrophic obstructive cardiomyopathy (HOCM) ([facility]) Expected: 11/25/2023 (Approximate), Expires: 12/24/2025 EXTERNAL EKG 8 TO 15 DAYS Holter Routine Hypertrophic obstructive cardiomyopathy (HOCM) ([facility]) Expected: 11/26/2023 (Approximate), Expires: 11/24/2024 EKG COMPLETE (TRACING AND INTERP) EKG Routine Hypertrophic obstructive cardiomyopathy (HOCM) ([facility]) Ordered: 11/25/2023 Health Maintenance Due Date Last Done Comments Depression Screening 1952 Zoster Vaccines (1 of 2) 1960 DXA Scan 05/07/2011 05/07/2009, 12/2008, 02/11/2006, Additional history exists *BISPHONATE OR OTHER ACCEPTABLE MEDICATION NEEDED FOR OSTEOPOROSIS (REFER TO SMARTSET #1146) 08/03/2014 COLONOSCOPY-EVERY 5 YRS AGES 18-100 02/19/2015 02/19/2010, 02/19/2010, 07/05/2006 (Done elsewhere), Additional history exists Pneumococcal Vaccine: 65+ Years (3 of 3 - PPSV23 or PCV20) 07/02/2016 05/07/2016, 05/17/2001 DTaP,Tdap,and Td Vaccines (2 - Td or Tdap) 09/19/2025 09/19/2015, 12/09/2005 VITAMIN D LEVEL ONCE IN A LIFETIME-USE SMARTSET# [id number] Completed 01/01/2022 COVID-19 Vaccine Completed 05/13/2023, 08/2021, [...] this encounter Medical Devices Implanted Type Area Community Relations Liaison Device Identifier Shelf Expiration Date Model / Serial / Lot Lens Intraoc 23.5 - [id number] - [id number] Implanted:Qty: 1 on 03/08/2018 by Pop Gutierrez MD at OR [facility] Left: Eye [employer] 09/01/2022 [id number] / [id number] / [id number] Lens Intraoc 21.5 - [id number] - [id number] Implanted:Qty: 1 on 03/22/2018 by Pop Gutierrez MD at OR [facility] Right: Eye [employer] 10/30/2022 [id number] / [id number] / [id number] documented as of this encounter Visit Diagnoses Diagnosis Hypertrophic obstructive cardiomyopathy (HOCM) (HCC)- Primary Hypertrophic obstructive cardiomyopathy Hypertrophic obstructive cardiomyopathy (HOCM) (HCC) Hypertrophic obstructive cardiomyopathy documented in this encounter Advance Directives Documents on File Type Date Recorded Patient Securities Adviser Expl anation Advance Directives and Living Will 11/14/2003 Power of C Software Developer 11/14/2003 Latest Code Status on File Code [...] and were consensually agreed upon. Care Teams Chief Engineer Drilling And Recovery Relationship Specialty Start Date End Date Aaron Wolf MD [address] [place] [address] PCP - General Critical Care Medicine 02/26/20 documented as of this encounter
--- OUTSIDE RECORDS SUMMARY | 2023-12-06 23:35 | External Medical Summary ---
Author Name Unknown Address Unknown Organization [id number]:[facility] [place] [facility] [address] [facility] [address] [place] [address] Laboratory Report Ordering Provider Test Date Status USMAN COLLAZO 10/07/2023 07:58:40 Final Observation Date Value Abnormality Reference (Units ) Status BUN 10/07/2023 07:58:40 12 6-20 (mg/dL) Final Creatinine 10/07/2023 07:58:40 0.9 0.5-1.0 (mg/dL) Final Glomerular filtration rate/1.73 sq M.predicted [Volume Rate/Area] in Serum, Plasma or Blood by Creatinine-based formula (CKD-EPI) 10/07/2023 07:58:40 67 >=60 (mL/min) Final eGFR is calculated based on the CKD-EPI 2020 equation SODIUM 10/07/2023 07:58:40 142 135-146 (m mol/L) Final Potassium 10/07/2023 07:58:40 4.1 3.5-5.1 (m mol/L) Final Cl 10/07/2023 07:58:40 103 98-107 (mm ol/L) Final CO2 10/07/2023 07:58:40 27 22-32 (mmo l/L) Final Anion gap 10/07/2023 07:58:40 12 7-15 (mmol /L) Final Glucose 10/07/2023 07:58:40 81 70-120 (mg /dL) Final Albumin 10/07/2023 07:58:40 4.8 3.8-5.0 (g /dL) Final AST (Aspartate aminotransferase) 10/07/2023 07:58:40 33 10-35 (U/L) Final Alk Phos 10/07/2023 07:58:40 53 35-130 (U/ L) Final Bilirubin, Total 10/07/2023 07:58:40 0.6 <=1 .2 (mg/dL) Final Calcium 10/07/2023 07:58:40 9.9 8.4-10.2 ( mg/dL) Final Protein 10/07/2023 07:58:40 6.6 6.0-8.3 (g /dL) Final ALT (Alanine aminotransferase) 10/07/2023 07:58:40 20 10-35 (U/L) Final Performing Location [facility] - [facility] [place] [address]. [facility] [address]
--- OUTSIDE RECORDS SUMMARY | 2023-12-06 23:35 | External Medical Summary | Summary of Care ---
Author Name Unknown Organization [facility] Address [address] [facility] [place] [address] Phone [phone] Care Team Providers Care Coconut Boiler Name Role Phone Aaron Wolf MD Primary Care Provider [phone] Reason for Visit * Reason Onset Date Comments Medication Refill 07/08/2023 Encounter Details Date Type Department Care Team (Late st Contact Info) Description 07/08/2023 Refill Rheumatology [place] [address] [employer] [place] [address] Vale Mary MD [facility] [employer] [place] [address] Allergies Active Allergy Reactions Criticality Noted Date Comments Triprolidine-Pseudoephedrin e 05/22/2015 Anefrin Nasal [place] 08/12/2018 Amoxicillin 04/04/2004 Antipyrine 03/09/2006 Rash and [...] a week. 108 Tablet 1 07/13/2023 Active Methotrexate 2.5 MG Oral Tablet Take 9 Tablets by mouth once a week. 108 Tablet 1 02/24/2023 3 Discontinue d(Refill) documented as of this encounter (statuses as of 07/13/2023) Active Problems Problem Noted Date Diagnosed Date [facility] without rheumatoid factor 09/01/2021 Encounter for [...] encounter Miscellaneous Notes * Telephone Encounter - Vale Mary MD - 07/13/2023 5:02 PM ESTSigned Prescriptions: Disp Refills Methotrexate 2.5 MG Oral Tablet 108 Ta*1 Sig: Take 9 Tablets by mouth once a week. Authorizing Provider: VALE MARY * Telephone Encounter - Sandra Gomez, packing line worker - 07/13/2023 2:37 PM EST Pending Prescriptions: Disp Refills Methotrexate 2.5 MG Oral Tablet 108 Ta*1 Sig: Take 9 Tablets by mouth once a week. * Telephone Encounter - Ina Morrison OSA - 07/09/2023 1:31 PM ESTPending Prescriptions: Disp Refills Methotrexate 2.5 MG Oral Tablet 108 Ta*1 Sig: Take 9 Tablets by mouth once a week. * Telephone Encounter - Sandra Gomez packing line worker - 07/08/2023 2:04 PM EST Did you pend patient's preferred pharmacy and medication before forwarding?yes Pharmacy: [id number] Pending Prescriptions: Disp Refills Methotrexate 2.5 MG Oral Tablet 108 Ta*1 Sig: Take 9 Tablets by mouth once a week. Last Visit: 01/13/2023 (in office), Visit date not found (telemedicine) Next Visit: 07/13/2023 If no future appointments scheduled, and last appointment is greater than a year ago, please schedule patient for a follow-up appointment Last date the medication was ordered: 02/24/23 Is this request for a controlled substance?No Urine Drug Screen:No results found for this or any previous visit. Patient Phone Numbers Labs: Lab Results Component Value Date/Time CREAT 0.9 07/08/2023 06:32 AM CREAT 0.73 02/24/2017 12:00 AM CREAT 1.0 05/31/2006 01:51 PM POTASSIUM 4.1 07/08/2023 06:32 AM POTASSIUM 3.9 02/24/2017 12:00 AM POTASSIUM 4.6 05/31/2006 01:51 PM TSH 3.10 01/09/2003 07:21 AM LDLCALC 44 08/22/2019 12:00 AM LDLCALC 51 01/14/2005 07:49 AM LDLCALC 161. (HH) 08/24/1996 07:30 AM LDLDIRECT 107 08/24/1996 07:30 AM ALT 19 07/08/2023 06:32 AM ALT 26 01/14/2005 07:49 AM documented in this encounter Plan of Treatment Upcoming Encounters Date Type Department Care Team (Late st Contact Info) Description 11/25/2023 10:00 AM EDT Office Visit Cardiology, [facility] [address] [place] [address] Louisa Carrillo CRNP [address] [place] [address] 04/12/2024 1:00 PM EDT Office Visit Rheumatology [address] [place] [address] Vale Mary MD [address] [place] [address] Health Maintenance Due Date Last Done Comments [...] D LEVEL ONCE IN A LIFETIME-USE SMARTSET# [id number] Completed 01/01/2022 COVID-19 Vaccine Completed 05/13/2023, 08/2021, [...] this encounter Medical Devices Implanted Type Area Palm Gatherer Device Identifier Shelf Expiration Date Model / Serial / Lot Lens Intraoc 23.5 - [id number] - [id number] Implanted:Qty: 1 on 03/08/2018 by Pop Gutierrez MD at OR [facility] Left: Eye [employer] 09/01/2022 [id number] / [id number] / [id number] Lens Intraoc 21.5 - [id number] - [id number] Implanted:Qty: 1 on 03/22/2018 by Pop Gutierrez MD at OR [facility] Right: Eye [employer]OM[employer] 10/30/2022 [id number] / [id number] / [id number] documented as of this encounter Advance Directives Documents on File Type Date Recorded Patient Netsuite Developer Expl anation Advance Directives and Living Will 11/14/2003 Power of Supervisor Train Operations 11/14/2003 Latest Code Status on File Code [...] and were consensually agreed upon. Care Teams Coconut Boiler Relationship Specialty Start Date End Date Aaron Wolf MD [address] [place] [address] PCP - General Critical Care Medicine 02/26/20 documented as of this encounter
--- OUTSIDE RECORDS SUMMARY | 2023-12-06 23:35 | External Medical Summary | Summary of Care ---
Author Name Unknown Organization [facility] Address [address] [facility] [place] [address] Phone [phone] Care Team Providers Care Pawn Shop Keeper Name Role Phone Aaron Wolf MD Primary Care Provider [phone] Reason for Referral * Precert (Within 10 days (routine)) - Authorized Specialty Diagnoses / Procedures Referred By Contac t Referred To Contact Cardiac Studies Diagnoses Hypertrophic obstructive cardiomyopathy (HOCM) ([facility]) Procedures ECHO, COMPLETE (2D), TRANS-THORACIC Louisa Carrillo CRNP [address] [place] [address] Referral ID Status Reason Start Date Expiration Date V isits Requested Visits Authorized [id number] Authorized Precert 11/25/2023 999 999 Reason for Visit * Reason Comments Follow Up Encounter Details Date Type Department Care Team (Latest Contact Info) Description 11/25/2023 10:00 AM EDT Office Visit Cardiology, [facility] [address] [place] [address] Louisa Carrillo CRNP [address] [place] [address] Hypertrophic obstructive cardiomyopathy (HOCM) ([facility])* Allergies Active Allergy Reactions Criticality Noted Date Comments Triprolidine-Pseudoephedrin e 05/22/2015 Anefrin Nasal [place] 08/12/2018 Amoxicillin 04/04/2004 Antipyrine 03/09/2006 Rash and [...] Noted Date Diagnosed Date Rheumatoid arthritis of [facility] without rheumatoid factor 09/01/2021 Encounter for [...] 30 Mcg, IM, 12 yrs and above ([employer]) 06/02/2022 Pneumococcal Conjugate Vacc, 13 Valent (Prevnar) [...] AM EDT Cardiology Outpatient Visit 11/25/2023 Primary Construction Producer: Dr. Espinal Past medical history: Hypertrophic cardiomyopathy [...] Needle localized right breast biopsy (benign) 05/20/09, [facility], Dr. Whelan COLONOSCOPY 12/31/2004 repeat 5 years [...] performed by Pop Gutierrez MD at OR [facility] REMOVE CATARACT, INSERT LENS PROSTH Right 03/22/2018 right EXTRACAPSULAR CATARACT REMOVAL WITH INTRAOCULAR LENS performed by Pop Gutierrez MD at OR [facility] REMOVE VULVA GLAND/LESION [facility] SMALL BOWEL ENDOSCOPY [...] Actifed [Triprolidine-Pseudoephedrine] Afrin 12 Hour [Anefrin Nasal [place]] Amoxicillin Antipyrine Rash and blisters Augmentin [Amoxicillin-Pot [...] deficits. PSYCH: Normal. Lab data/imaging study review: [facility] 09/2022 Patient had a min HR of [...] This chart was completed in part utilizing The [employer] Speech Voice Recognition Software. Grammatical errors, random [...] Problems/Concerns: denied Chest Pain/SOB: see note My [facility] is a way you can talk to [...] Team (Late st Contact Info) Description 11/25/2023 1:15 PM EDT Cardiac Studies Cardiac Studies, [facility] [address] [facility] [place] [id number] Arrived 04/25/2024 11:00 AM EDT Office Visit Rheumatology [facility] [address] [facility] [place] [address] Bethel Jones MD [address] [place] [address] Scheduled Orders Name Type Priority Associated Diagnoses Orde r Schedule ECHO, COMPLETE (2D), TRANS-THORACIC Echocardiology Routine Hypertrophic obstructive cardiomyopathy (HOCM) ([facility]) Expected: 11/25/2023 (Approximate), Expires: 12/24/2025 EXTERNAL EKG 8 TO 15 DAYS Holter Routine Hypertrophic obstructive cardiomyopathy (HOCM) ([facility]) Expected: 11/26/2023 (Approximate), Expires: 11/24/2024 EKG COMPLETE (TRACING AND INTERP) EKG Routine Hypertrophic obstructive cardiomyopathy (HOCM) ([facility]) Ordered: 11/25/2023 Health Maintenance Due Date Last [...] D LEVEL ONCE IN A LIFETIME-USE SMARTSET# [id number] Completed 01/01/2022 COVID-19 Vaccine Completed 05/13/2023, 08/2021, [...] this encounter Medical Devices Implanted Type Area Prep Cook Device Identifier Shelf Expiration Date Model / Serial / Lot Lens Intraoc 23.5 - [id number] - [id number] Implanted:Qty: 1 on 03/08/2018 by Pop Gutierrez MD at OR [facility] Left: Eye [employer] 09/01/2022 [id number] / [id number] / [id number] Lens Intraoc 21.5 - [id number] - [id number] Implanted:Qty: 1 on 03/22/2018 by Pop Gutierrez MD at OR [facility] Right: Eye [employer]OM[employer] 10/30/2022 [id number] / [id number] / [id number] documented as of this encounter Visit Diagnoses Diagnosis Hypertrophic obstructive cardiomyopathy (HOCM) (HCC)- Primary Hypertrophic obstructive cardiomyopathy documented in this encounter Advance Directives Documents on File Type Date Recorded Patient Form Stripper Expl anation Advance Directives and Living Will 11/14/2003 Power of Channel Installer 11/14/2003 Latest Code Status on File Code [...] and were consensually agreed upon. Care Teams Pawn Shop Keeper Relationship Specialty Start Date End Date Aaron Wolf MD [address] [place] [address] PCP - General Critical Care Medicine 02/26/20 documented as of this encounter
--- OUTSIDE RECORDS SUMMARY | 2023-12-06 23:36 | External Medical Summary ---
Author Name Unknown Address Unknown Organization [id number]:[facility] [address] [place] [address] Laboratory Report Ordering Provider Test Date Status USMAN COLLAZO 07/08/2023 06:32:00 Final Observation Date Value Abnormality Reference (Units ) Status BUN 07/08/2023 06:32:00 10 6-20 (mg/dL) Final Creatinine 07/08/2023 06:32:00 0.9 0.5-1.0 (mg/dL) Final Glomerular filtration rate/1.73 sq M.predicted [Volume Rate/Area] in Serum, Plasma or Blood by Creatinine-based formula (CKD-EPI) 07/08/2023 06:32:00 67 >=60 (mL/min) Final eGFR is calculated based on the CKD-EPI 2020 equation SODIUM 07/08/2023 06:32:00 139 135-146 (m mol/L) Final Potassium 07/08/2023 06:32:00 4.1 3.5-5.1 (m mol/L) Final Cl 07/08/2023 06:32:00 102 98-107 (mm ol/L) Final CO2 07/08/2023 06:32:00 30 22-32 (mmo l/L) Final Anion gap 07/08/2023 06:32:00 7 7-15 (mmol /L) Final Glucose 07/08/2023 06:32:00 78 70-120 (mg /dL) Final Albumin 07/08/2023 06:32:00 4.3 3.8-5.0 (g /dL) Final AST (Aspartate aminotransferase) 07/08/2023 06:32:00 27 10-35 (U/L) Final Alk Phos 07/08/2023 06:32:00 49 35-130 (U/ L) Final Bilirubin, Total 07/08/2023 06:32:00 0.6 <=1 .2 (mg/dL) Final Calcium 07/08/2023 06:32:00 10.0 8.4-10.2 ( mg/dL) Final Protein 07/08/2023 06:32:00 6.2 6.0-8.3 (g /dL) Final ALT (Alanine aminotransferase) 07/08/2023 06:32:00 19 10-35 (U/L) Final Performing Location [facility] [place] [address]
--- OUTSIDE RECORDS SUMMARY | 2023-12-06 23:36 | External Medical Summary ---
Author Name Unknown Address Unknown Organization [id number]:[facility]ATORY [facility] - [address] [place] [address] Laboratory Report Ordering Provider Test Date Status ROSAURA FERRER 07/08/2023 06:32:00 Final Observation Date Value Abnormality Reference (Units ) Status Triglyceride 07/08/2023 06:32:00 150 <=174 ( mg/dL) Final Triglyceride Reference Range s (mg/dL):
<150 Acceptable
150-174 Borderline high
175-499 High
>=500 Very high Cholesterol 07/08/2023 06:32:00 143 <200 (mg /dL) Final Total Cholesterol Reference Ranges (mg/dL):
<200 Desirable
200-239 Borderline high
>=240 High HDL 07/08/2023 06:32:00 66 >49 (mg/dL ) Final HDL Cholesterol Reference Ra nges (mg/dL):
>=60 High (Desirable)
<50 Low (Undesirable) For Females
<40 Low (Undesirable) For Males NON-HDL CHOLESTEROL 07/08/2023 06:32:00 77 <=159 (mg/dL) Final Non-HDL Cholesterol Referenc e Range (mg/dL):
<100 Target level for high risk ASCVD patient
<130 Optimal for general population
130-159 Near optimal for general population
160-189 Borderline High
190-219 High
>=220 Very High LDL, (calculated) 07/08/2023 06:32:00 47 <= 129 (mg/dL) Final LDL Cholesterol Reference Ra nges (mg/dL):
<70 Target level for high risk ASCVD patient
<100 Optimal for general population
100-129 Near optimal for general population
130-159 Borderline high
160-189 High
>=190 Very high Performing Location LABORATORY [facility] [place] - [address] [facility] [address]
--- OUTSIDE RECORDS SUMMARY | 2023-12-06 23:36 | External Medical Summary ---
Author Name Unknown Address Unknown Organization K01:[facility] [place] [address] [place] [address] Laboratory Report Ordering Provider Test Date Status ROSAURA FERRER 07/08/2023 06:32:00 Final Observation Date Value Abnormality Reference (Units ) Status LDL, (direct) 07/08/2023 06:32:00 48 <=129 (mg/dL) Final LDL Cholesterol Reference Ra nges (mg/dL):
<70 Target level for high risk ASCVD patient
<100 Optimal for general population
100-129 Near optimal for general population
130-159 Borderline high
160-189 High
>=190 Very high Performing Location LABORATORY [facility] - [address] [place] [address]
[2023-12-07] MEDS: ACETAMINOPHEN 325 MG TAB PO PRN (02:00)
--- NOTE | 2023-12-07 03:07 | Communication Note ---
Date of Service: December 07, 2023 Notified by nursing that Vane Carlton was ambulating to the bathroom when she began to feel very weak and unwell. Nursing noted that her oxygen saturation was low and she was diaphoretic, her oxygen saturation improved with 3L supplemental oxygen. Shortly after this, patient's HR jumped to 110-140 and she was found to be in atrial fibrillation with RVR. I went to bedside, on exam patient was found to be in afib with RVR. No increased respiratory efforts noted on exam while receiving supplemental oxygen. Patient's BP was approximately 90s systolic at this time. I ordered stat CBC, BMP, mag levels and put in a transfer order for the patient to be moved from med/tele to PCU status. Upon transfer to PCU, patient was found to have a BP of 76/53. Patient was placed in Trendelenburg and given a 500cc bolus. She had not received the previously ordered Digoxin so this was discontinued. Her systolic BP ranged from 70s to low 90s during this time, HR remained in low 110s. After receiving IVF bolus, it was noted that the patient did not receive her chronic steroids yesterday (typically receives 7.5mg prednisone daily), so 15mg prednisone was ordered. Patient was started on heparin drip. I reached out to the oncall nuclear powerplant mechanic to discuss medications for her new afib considering her HOCM, after discussion patient was started on amiodarone bolus and drip. Potassium and magnesium repletion ordered. Consult for cardiology placed and echocardiogram ordered for morning. Previously ordered azithromycin was held due to starting the amiodarone.
[2023-12-07] MEDS: SODIUM CHLORIDE 0.9% 500 ML IV ONE (03:29)
[2023-12-07 03:37] LABS: Basophils # (auto) 0.01 K/uL (0.00-0.20); Basophils % (auto) 0.1 %; Eosinophils # (auto) 0.03 K/uL (0.00-0.50); Eosinophils % (auto) 0.3 %; Hematocrit (blood only) 34.8 % (37.0-47.0); Hemoglobin 11.3 g/dl (12.0-16.0); Immature Granulocytes # (auto) 0.04 K/uL (0.01-0.20); Immature Granulocytes % (auto) 0.4 %; Lymphocytes # (auto) 1.52 K/uL (1.20-3.40); Lymphocytes % (auto) 14.4 %; Mean Corpuscular Hemoglobin 30.3 pg (25.0-34.0); Mean Corpuscular Hgb Conc 32.5 g/dL (32.0-36.0); Mean Corpuscular Volume 93.3 fL (80.0-100.0); Mean Platelet Volume 11.3 fL (9.4-12.4); Monocytes # (auto) 0.69 K/uL (0.11-0.59); Monocytes % (auto) 6.6 %; Neutrophils # (auto) 8.23 K/uL (1.40-6.50); Neutrophils % (auto) 78.2 %; Platelet Count 145 K/uL (130-400); RDW Coefficient of Variation 15.7 % (11.5-14.5); RDW Standard Deviation 53.1 fL (36.4-46.3); Red Blood Count 3.73 M/uL (4.20-5.40); White Blood Count 10.52 K/ul (4.8-10.8)
[2023-12-07 03:54] LABS: BUN Creatinine Ratio 14.7 (10-20); Calcium 8.9 mg/dl (8.6-10.3); Creatinine Clr Calc Pharmacy 47.8 ml/min; Est GFR (Non-African American) 74.2 ml/min; Magnesium 1.9 mg/dl (1.7-2.4); Potassium 3.8 mmol/L (3.5-5.1)
[2023-12-07] MEDS: HEPARIN SODIUM/DEXTROSE 25,000 UNITS/500 ML BAG IV SCH (04:15)
[2023-12-07] MEDS: predniSONE 5 MG TAB PO STA (04:22)
[2023-12-07] MEDS: ONDANSETRON INJ 2 MG/ML 2 ML VIAL IV STA (04:25)
[2023-12-07 04:40] LABS: ANTI-Xa, UFH(UnfractionatedHep < 0.10 IU/ml (0.3-0.7); INR 1.2 (0.9-1.1); Partial Thromboplastin Ratio 1.1; Partial Thromboplastin Time 29 Seconds (21-31); Prothrombin Time 12.4 Seconds (9.0-12.0)
[2023-12-07] MEDS: DIGOXIN IV STA (04:41)
[2023-12-07] MEDS ORDERED: AMIODARONE IV BOLUS & DRIP IV STA (04:54)
[2023-12-07] MEDS ORDERED: STAT IV Infusion **Titration per Protocol STA (04:54)
[2023-12-07] MEDS ORDERED: 0.2 MICRON FILTER SET 1 EACH IV ONE ×2 (05:00→14:14)
[2023-12-07] MEDS: AMIODARONE / D5W 150 MG/100 ML BAG IV ONE (05:05)
[2023-12-07] MEDS: AMIODARONE / D5W 360 MG/200 ML BAG IV ONE (05:22)
[2023-12-07] MEDS: MAGNESIUM SULFATE / D5W 1 GM/100 ML BAG IV ONE (05:26)
[2023-12-07] MEDS: POTASSIUM CHLORIDE CRTAB 20 MEQ TABCR PO STA (05:26)
--- NOTE | 2023-12-07 06:14 | Electrocardiogram Report ---
Test Reason : Blood Pressure : / mmHG Vent. Rate : 101 BPM Atrial Rate : 101 BPM P-R Int : 168 ms QRS Dur : 128 ms QT Int : 378 ms P-R-T Axes : 112 -31 116 degrees QTc Int : 490 ms Sinus tachycardia with Premature atrial complexes Left axis deviation Left bundle branch block Abnormal ECG When compared with ECG of 05-AUG-2022 15:13, No significant change was found Confirmed by Rosendo Park ([id number]) on 12/07/2023 6:14:20 AM Referred By: Confirmed By:Rosendo Park
--- NOTE | 2023-12-07 07:14 | Hospitalist Progress Note ---
Date of Service December 07, 2023 Assessment & Plan (1) Left lower lobe pneumonia: (2) Elevated troponin: (3) Chronic diastolic heart failure: (4) HOCM (hypertrophic obstructive cardiomyopathy): (5) Rheumatoid arthritis: (6) Hypertension: Plan Vane is a 83-year-old female with a past medical history including hypertrophic cardiomyopathy, hypertension, hyperlipidemia, chronic kidney disease stage IIIa, diverticulitis, and rheumatoid arthritis presenting with left-sided chest pain, constipation, chills, and shortness of breath starting 12/04 in the evening. She presented to our ED 12/05 after she took metoprolol succinate and aspirin, which did not help. She was hypoxic on presentation (89%), which improved with oxygen. Chest XR shows a left lower lung pneumonia. ECG showed sinus tachycardia, no evidence of acute AL. Troponin was elevated, likely secondary to cardiac injury or mismatch from dyspnea. 1. Left lower lobe pneumonia: Worsening left-sided chest pain, chills, and SOB since the evening of 12/04. Hypoxic on arrival, now stable on O2 nasal canula. BioFire negative, CXR showing left pleural effusion with left basilar opacity. Leukocytosis was 16.62 with neutrophilic predominance. PT/OT consulted for weakness/fatigue -Leukocytosis resolved (10.52 K/ul) this AM -Rocephin 2000 mg IV q24h, pending blood culture - Azithromycin stopped after Afib with RVR overnight -Acetaminophen as needed for pain/fever -Continue supplemental oxygen as needed to maintain SpO2 > 94% -Continuous pulse ox -Trend labs - CBC, BMP, mag 2. Afib with RVR: Overnight event, put on amiodarone drip, cardiology consulted -Returned to sinus rhythm at 5:22 AM -Heart rate 63 this AM -Appreciate cardiology recs -Echo similar to past echo 08/06/22 -Finish amiodarone drip, then start oral amiodarone tomorrow morning -Start Lovenox 52 mg sq q24h for VTE Ppx, CHADS VASC = 6. DOAC at discharge -Continuous telemetry monitoring -Continue metoprolol for hypertension and rate control 3. Elevated troponin: Elevated troponin at 27.6-->27.8 on arrival. Likely due to a combination of left lower lobe pneumonia and atrial fibrillation -Continuous telemetry monitoring 4. Chronic diastolic heart failure: BNP elevated at 1299 (last 1478 on 08/05/2022), Echo 08/06/22 showed LVEF > 70% and severe asymmetric hypertrophy. History of hypertrophic cardiomyopathy -Echo 12/07/23 similar to echo 08/06/22 5. HOCM (hypertrophic obstructive cardiomyopathy): Chronic; noted 6. Constipation: Constipation x 1 week, KUB showed nonobstructive gas pattern and mild fecal retention -Current home regimen is ineffective per patient, consists of Cytotec, stool softeners tid, and Senna-S bid -MiraLax as needed, suggest this for home regimen as well 7. Rheumatoid arthritis: -Continue prednisone 8. Hypertension: -Continue metoprolol 9. Normocytic anemia: Likely in the context of the patient's numerous chronic diseases and pneumonia -RBC 3.73 M/uL, Hgb 11.3 g/dl, Hct 34.8% -Trend labs 10. Elevated PT/INR: -PT 12.4 seconds, INR 1.2 -Unfractionated heparin anti-Xa < 0.10 IU/ml --> 0.42 IU/ml this AM -Start Lovenox 52 mg sq q24h for VTE Ppx, CHADS VASC = 6. DOAC at discharge -Trend labs Plan: Disposition: MedSurg telemetry DNR/DNI Regular diet VTE PPx: Lovenox 40 mg SQ q24h Admission and Anticipated Discharge Date Admission Date: December 06, 2023 Supervising Physician Co-Signing Physician Notes I personally examined the patient and verified all kelly points of history and exam, discussed case, and agree with decision making with Dr Petey Adams Feeling better breathing better. Getting around fairly well. Discussed with cardiology. Input appreciated. Vitals noted, in general she is awake and alert pleasant no distress. HEENT normocephalic atraumatic mucous membranes moist. Breathing unlabored no accessory muscle use good effort. Skin shows no rashes no pallor or icterus. Neuro without focal deficits. Community-acquired pneumonia, sepsis present on admission, A-fib with RVR complicated by HOCM and mitral stenosisfortunately doing much better. Rate is controlled. Continue current antibiotics as sepsis appears to be resolving. Otherwise as above. Anticoagulated. Rusty Cifuentes feels okay this morning. She reports feeling better than yesterday, but that she had one episode of shortness of breath and weaknesss this morning while going to the bathroom this AM. She does not know how long this episode lasted. She has noticed her heart racing in the past at times but does not feel that now. She denies cough and chest pain. She feels fatigued but was able to eat breakfast this morning. She has not yet been able to pass stool, and she has a history of constipation that she feels is not well controlled with her current regimen of Cytotec, stool softeners tid, and Senna-S bid. She went back into sinus rhythm at 5:22 AM this morning per telemetry. Review of Systems Review of Systems: Negative except as noted above. Physical Exam Constitutional: Fatigued but alert and oriented, in no acute distress. Respiratory: normal respiratory effort and + audible wheezes (left side) Cardiovascular: RRR, no murmur, no edema Heart Sounds: normal S1 and normal S2 Results & Data Results & Data Vital Signs (Past 12 Hours) Vital Signs Temp Pulse Pulse Pulse Resp BP Pulse Ox 12/07/23 05:32 72 94/60 L 12/07/23 05:05 108 H 96/67 L 12/07/23 04:19 103/69 12/07/23 03:44 88/63 L 12/07/23 03:14 36.7 C 122 H 18 76/53 L 96 12/07/23 02:56 103/71 12/07/23 02:18 36.4 C L 113 H 14 92/65 L 96 12/06/23 22:52 37.5 C 94 H 16 94/55 L 92 12/06/23 21:00 83 12/06/23 20:44 12/06/23 20:08 36.6 C 98 H 16 127/73 94 O2 Del Method O2 Flow Rate 12/07/23 05:32 12/07/23 05:05 12/07/23 04:19 12/07/23 03:44 12/07/23 03:14 Nasal Cannula 2 12/07/23 02:56 12/07/23 02:18 Nasal Cannula 3 12/06/23 22:52 Room Air 12/06/23 21:00 12/06/23 20:44 Room Air 12/06/23 20:08 Room Air Laboratory Results 12/07/23 12/07/23 12/07/23 10:01 04:07 03:18 WBC 10.52 RBC 3.73 L Hgb 11.3 L Hct 34.8 L MCV 93.3 MCH 30.3 MCHC 32.5 RDW Std Deviation 53.1 H RDW Coeff of Matteo 15.7 H Plt Count 145 MPV 11.3 Immature Gran % (Auto) 0.4 Neut % (Auto) 78.2 Lymph % (Auto) 14.4 Ogle % (Auto) 6.6 Eos % (Auto) 0.3 Baso % (Auto) 0.1 Neut # (Auto) 8.23 H Lymph # (Auto) 1.52 Ogle # (Auto) 0.69 H Eos # (Auto) 0.03 Baso # (Auto) 0.01 Immature Gran # (Auto) 0.04 Hypersegmented Neuts PT 12.4 H INR 1.2 H APTT 29 PTT Ratio 1.1 Heparin Anti-Xa, Unfract 0.42 < 0.10 L Sodium 136 Potassium 3.8 Chloride 103 Carbon Dioxide 25 Anion Gap 8 BUN 11 Creatinine 0.75 Est Cr Clr Drug Dosing 47.8 Est GFR ( Amer) 86.0 Est GFR (Non-Af Amer) 74.2 BUN/Creatinine Ratio 14.7 Glucose 135 H Lactate Calcium 8.9 Magnesium 1.9 Total Bilirubin AST ALT Alkaline Phosphatase Troponin I High Sens B-Natriuretic Peptide Total Protein Albumin Globulin Albumin/Globulin Ratio Lipase TSH Urine Color Urine Appearance Urine pH Ur Specific [place] Urine Protein Urine Glucose (UA) Urine Ketones Urine Blood Urine Nitrite Urine Bilirubin Urine Urobilinogen Ur Leukocyte Esterase Urine WBC (Auto) Urine RBC (Auto) U Hyaline Cast (Auto) U Epithel Cells (Auto) Urine Bacteria (Auto) Adenovirus (PCR) B. pertussis DNA (PCR) B.parapertussis DNA PCR C. pneumoniae DNA (PCR) Coronavirus OC43 (PCR) Coronavirus HKU1 (PCR) Coronavirus 229E (PCR) SARS-CoV-2 (PCR) Coronavirus NL63 (PCR) Human Metapneumovir PCR Influenza Type A (PCR) Influenza Type B (PCR) M. pneumoniae (PCR) Parainfluenza 1 (PCR) Parainfluenza 2 (PCR) Parainfluenza 3 (PCR) Parainfluenza 4 (PCR) RSV (PCR) Entero/Rhino (PCR) 12/06/23 12/06/23 12/06/23 13:53 11:50 11:47 WBC 16.62 H RBC 3.97 L Hgb 12.2 Hct 38.0 MCV 95.7 MCH 30.7 MCHC 32.1 RDW Std Deviation 53.6 H RDW Coeff of Matteo 15.6 H Plt Count 165 MPV 11.1 Immature Gran % (Auto) 0.6 Neut % (Auto) 87.0 Lymph % (Auto) 5.4 Ogle % (Auto) 6.9 Eos % (Auto) 0.0 Baso % (Auto) 0.1 Neut # (Auto) 14.46 H Lymph # (Auto) 0.90 L Ogle # (Auto) 1.14 H Eos # (Auto) 0.00 Baso # (Auto) 0.02 Immature Gran # (Auto) 0.10 Hypersegmented Neuts 1+ PT 11.4 INR 1.1 APTT 28 PTT Ratio 1.0 Heparin Anti-Xa, Unfract Sodium Potassium Chloride Carbon Dioxide Anion Gap BUN Creatinine Est Cr Clr Drug Dosing Est GFR ( Amer) Est GFR (Non-Af Amer) BUN/Creatinine Ratio Glucose Lactate 1.7 Calcium Magnesium Total Bilirubin AST ALT Alkaline Phosphatase Troponin I High Sens 27.8 H B-Natriuretic Peptide 1299 H Total Protein Albumin Globulin Albumin/Globulin Ratio Lipase TSH Urine Color Yellow Urine Appearance Clear Urine pH 8.5 H Ur Specific [place] 1.008 Urine Protein Trace H Urine Glucose (UA) Negative Urine Ketones Negative Urine Blood 2+ H Urine Nitrite Negative Urine Bilirubin Negative Urine Urobilinogen Negative Ur Leukocyte Esterase Negative Urine WBC (Auto) 0-5 Urine RBC (Auto) 11-20 H U Hyaline Cast (Auto) 0-2 U Epithel Cells (Auto) 0-2 Urine Bacteria (Auto) None Seen Adenovirus (PCR) B. pertussis DNA (PCR) B.parapertussis DNA PCR C. pneumoniae DNA (PCR) Coronavirus OC43 (PCR) Coronavirus HKU1 (PCR) Coronavirus 229E (PCR) SARS-CoV-2 (PCR) Coronavirus NL63 (PCR) Human Metapneumovir PCR Influenza Type A (PCR) Influenza Type B (PCR) M. pneumoniae (PCR) Parainfluenza 1 (PCR) Parainfluenza 2 (PCR) Parainfluenza 3 (PCR) Parainfluenza 4 (PCR) RSV (PCR) Entero/Rhino (PCR) 12/06/23 12/06/23 11:40 11:36 WBC RBC Hgb Hct MCV MCH MCHC RDW Std Deviation RDW Coeff of Matteo Plt Count MPV Immature Gran % (Auto) Neut % (Auto) Lymph % (Auto) Ogle % (Auto) Eos % (Auto) Baso % (Auto) Neut # (Auto) Lymph # (Auto) Ogle # (Auto) Eos # (Auto) Baso # (Auto) Immature Gran # (Auto) Hypersegmented Neuts PT INR APTT PTT Ratio Heparin Anti-Xa, Unfract Sodium 137 Potassium 3.9 Chloride 101 Carbon Dioxide 28 Anion Gap 8 BUN 9 Creatinine 0.71 Est Cr Clr Drug Dosing 50.5 Est GFR ( Amer) 91.9 Est GFR (Non-Af Amer) 79.3 BUN/Creatinine Ratio 12.7 Glucose 132 H Lactate Calcium 9.3 Magnesium 1.8 Total Bilirubin 0.9 AST 24 ALT 15 Alkaline Phosphatase 51 Troponin I High Sens 27.6 H B-Natriuretic Peptide Total Protein 6.6 Albumin 4.2 Globulin 2.4 L Albumin/Globulin Ratio 1.8 Lipase 14 TSH 1.211 Urine Color Urine Appearance Urine pH Ur Specific [place] Urine Protein Urine Glucose (UA) Urine Ketones Urine Blood Urine Nitrite Urine Bilirubin Urine Urobilinogen Ur Leukocyte Esterase Urine WBC (Auto) Urine RBC (Auto) U Hyaline Cast (Auto) U Epithel Cells (Auto) Urine Bacteria (Auto) Adenovirus (PCR) Not Detected B. pertussis DNA (PCR) Not Detected B.parapertussis DNA PCR Not Detected C. pneumoniae DNA (PCR) Not Detected Coronavirus OC43 (PCR) Not Detected Coronavirus HKU1 (PCR) Not Detected Coronavirus 229E (PCR) Not Detected SARS-CoV-2 (PCR) Not Detected Coronavirus NL63 (PCR) Not Detected Human Metapneumovir PCR Not Detected Influenza Type A (PCR) Not Detected Influenza Type B (PCR) Not Detected M. pneumoniae (PCR) Not Detected Parainfluenza 1 (PCR) Not Detected Parainfluenza 2 (PCR) Not Detected Parainfluenza 3 (PCR) Not Detected Parainfluenza 4 (PCR) Not Detected RSV (PCR) Not Detected Entero/Rhino (PCR) Not Detected Resident Activity Tracking Resident Involvement: Resident Care Provided Care Provided: Adult Hospital Medicine
[2023-12-07] MEDS: Heparin IV Adult Wt-Based Standard *NO* INITIAL Bolus Protocol IV SCH (07:28)
[2023-12-07] MEDS: FLUTICASONE PROPIONATE NA SPR 16 GM BTL SCH (09:04)
[2023-12-07] MEDS: FOLIC ACID 400 MCG TAB PO SCH (09:04)
[2023-12-07] MEDS: ASPIRIN 81 MG ECTAB PO SCH (09:04)
[2023-12-07] MEDS: CETIRIZINE HCL 10 MG TABLET PO SCH (09:04)
[2023-12-07] MEDS: DOCUSATE SODIUM 100 MG CAP PO SCH (09:04)
[2023-12-07] MEDS: POLYETHYLENE (MIRALAX) 17 GM PACK PO SCH (09:12)
[2023-12-07 10:22] LABS: ANTI-Xa, UFH(UnfractionatedHep 0.42 IU/ml (0.3-0.7)
[2023-12-07] MEDS: AMIODARONE / D5W 360 MG/200 ML BAG IV SCH ×2 (11:02→14:23)
--- NOTE | 2023-12-07 11:52 | Cardiology Consultation ---
Date of Consultation December 07, 2023 Assessment & Plan (1) Atrial fibrillation with rapid ventricular response: (2) HOCM (hypertrophic obstructive cardiomyopathy): (3) Hypoxia: (4) Leukocytosis: Plan Patient is an 83-year-old female, immunocompromised secondary to chronic immunos uppressive for rheumatoid arthritis, prednisone and methotrexate presents with weakness fatigue and cough, chills possible left lower lobe pneumonia. Underlying medical issues and cardiac issues are complex but include severe left hypertrophy with hypertrophic obstructive cardiomyopathy and hyperdynamic LV function, left chronic left bundle branch block. Valvular disease also present with calcific mitral stenosis. Clinical history notable for recent palpitations in addition to above symptoms. Following admission patient lapsed into atrial fibrillation with rapid ventricular response and hemodynamic instability with symptomatic hypotension Patient has spontaneously returned to sinus rhythm following IV amiodarone load. Recommendations: 1. Paroxysmal atrial fibrillation: Event with elevated heart rate poorly tolerated as expected given underlying hypertrophic pathology and outflow tract obstruction. High likelihood of recurrence. Would recommend completing current infusion bag of amiodarone and then will transition to oral amiodarone. Metoprolol succinate reduced to 25 mg twice per day. Daily EKG Hypertrophic obstructive cardiomyopathy, severe left atrial dilatation and mitr al stenosis place patient at very high risk of thromboembolic phenomena approaching 20% annually. Will require long-term anticoagulation unless absolutely contraindicated. Currently on IV heparin will need to transition to oral regimen on discharge 2. Left lower lobe pneumonia/left pleural effusion and immunocompromise patient per primary service. Will need to follow volume status closely 3. Mild elevation in troponin without evolutiont not suggestive of type I myocardial infarction. Demand ischemia apparent 4. Conduction system disease with chronic left bundle branch block will need to follow cautiously as amiodarone added. Metoprolol succinate reduced as above History of Present Illness Reason for Consultation: Atrial fibrillation with rapid response Attending Physician: Ru Basilio DO History of Present Illness Patient is a complex 83-year-old female with underlying cardiac and concerns include 1. Hypertrophic cardiomyopathy with dynamic outflow tract obstruction and systolic anterior motion of mitral valve chordae with mitral regurgitation 2. Heavy Caseating calcification of the posterior mitral valve annulus with mild to moderate mitral stenosis 3. Left bundle-branch block 4. Dyslipidemia 5. Severe rheumatoid arthritis, follows with rheumatology--on methotrexate and prednisone 6. Pectus excavatum with marked kyphoscoliosis Patient presented this admission noting intermittent malaise and weight gain recently occasional sensations of palpitations. Day of admission awakened with sharp left-sided chest pain and heart pounding shortness of breath Took aspirin and additional dose of metoprolol and presented to the ER. Patient tachycardic and hypoxic on presentation Chest x-ray with left pleural effusion possible basilar infiltrate EKG sinus tachycardia with chronic left bundle branch block Patient begun on treatment for potential pneumonia Earlier this morning patient lapsed into atrial fibrillation with rapid ventricular rate and associated hypotension and malaise. Event occurred while patient was ambulating to bathroom with assist Placed on IV amiodarone with subsequent spontaneous conversion to sinus rhythm this morning Patient feels tired and washed out no chest pains. Has been having chills but no overt fevers. No productive cough. No worsening edema. Appetite has been poor but weight increasing No headaches or visual changes no bleeding difficulties Allergies Allergy/AdvReac Type Severity Reaction Status Date / Time bee venom protein (honey bee) Allergy Intermediate BEE/WASP-NAUSEA Verified 12/06/23 14:19 AND DIZZINESS Penicillins Allergy Intermediate RASH (PER Verified 12/06/23 14:19 PT, WAS A LONG TIME AGO)AMOXICILLIN AND PCN amoxicillin [From Augmentin] Allergy Mild Unknown Verified 12/06/23 14:19 clavulanic acid Allergy Mild Unknown Verified 12/06/23 14:19 [From Augmentin] esomeprazole Allergy Mild NAUSEA Verified 12/06/23 14:19 VOMITING magnesium citrate Allergy Mild projectile Verified 12/06/23 14:19 vomitting antipyrine Allergy Unknown RASH AND Verified 12/06/23 14:19 BLISTERS benzocaine Allergy Unknown dental - Verified 12/06/23 14:19 tingling on tongue hydroxychloroquine Allergy Unknown UNKNOWN Verified 12/06/23 14:19 misoprostol Allergy Unknown UNKNOWN Verified 12/06/23 14:19 phenylephrine Allergy Unknown UNKNOWN Verified 12/06/23 14:19 pseudoephedrine Allergy Unknown UNKNOWN Verified 12/06/23 14:19 Serotonin 5HT-3 Antagonists Allergy Unknown UNKNOWN Verified 12/06/23 14:19 Sulfa (Sulfonamide Allergy Unknown UNKNOWN Verified 12/06/23 14:19 Antibiotics) citalopram AdvReac Mild GI UPSET Verified 12/06/23 14:19 clarithromycin AdvReac Mild GI UPSET Verified 12/06/23 14:19 denosumab [From Prolia] AdvReac Unknown Unknown Unverified 12/06/23 14:19 Home Medications Medication Instructions Recorded Confirmed Type acetaminophen 500 mg tablet 1,000 mg PO Q8H PRN Pain 08/17/18 12/06/23 History (Tylenol Extra Strength) aspirin 81 mg tablet,delayed 81 mg PO QAM 08/17/18 12/06/23 History release atorvastatin 10 mg tablet 10 mg PO HS 08/17/18 12/06/23 History calcium carbonate 600 mg-vitamin 1 tab PO QAM 08/17/18 12/06/23 History D3 5 mcg (200 unit) capsule (Calcium 600 + D(3)) cholecalciferol (vitamin D3) 25 1,000 unit PO QAM 08/17/18 12/06/23 History mcg (1,000 unit) capsule (Vitamin D3) fluticasone propionate 50 2 spray intranasal [facility] 08/17/18 12/06/23 History mcg/actuation nasal spray,suspension lorazepam 0.5 mg tablet 0.5 mg PO HS 08/17/18 12/06/23 History metoprolol succinate 50 mg 50 mg PO AMHS 08/17/18 12/06/23 History tablet,extended release 24 hr pantoprazole 40 mg tablet,delayed 40 mg PO QAM 08/17/18 12/06/23 History release prednisone 5 mg tablet 7.5 mg PO M 08/17/18 12/06/23 History folic acid 800 mcg tablet 2,000 mcg PO DAILY 09/26/18 12/06/23 History methotrexate sodium 2.5 mg tablet 22.5 mg PO WK 08/05/22 12/06/23 History multivitamin 1 tab PO DAILY 08/05/22 12/06/23 History calcium carbonate 500 mg PO DAILY 12/06/23 12/06/23 History cetirizine 10 mg tablet 10 mg PO DAILY 12/06/23 12/06/23 History docusate sodium 50 mg capsule 50 mg PO BID 12/06/23 12/06/23 History light mineral oil 1 %-mineral oil 1 drp ophthalmic (eye) BID PRN Dry 12/06/23 12/06/23 History 4.5 % eye drops (Soothe XP) Eye(S) melatonin 3 mg capsule 9 mg PO HS 12/06/23 12/06/23 History ondansetron 4 mg disintegrating 4 mg PO Q8H PRN Nausea And Vomiting 12/06/23 12/06/23 History tablet tramadol 50 mg tablet 50 mg PO Q6H PRN Pain 12/06/23 12/06/23 History Patient History Medical History Hypertrophic cardiomyopathy with LVOT and LEYDA PONV (postoperative nausea and vomiting) Lactose intolerance Osteoporosis Rheumatoid arthritis Kidney stones passed on own GERD (gastroesophageal reflux disease) Anxiety Hiatal hernia Hypertension Hyperlipidemia HOCM (hypertrophic obstructive cardiomyopathy) Lumbar stenosis with neurogenic claudication Diverticulitis IBS (irritable bowel syndrome) Mitral valve prolapse Surgical History History of appendectomy History of cataract surgery right and left History of endoscopic sinus surgery History of lumbar spinal fusion History of tonsillectomy and adenoidectomy Hx of mastoidectomy Social History Smoking Status: Never smoker Second Hand Exposure: No; Do You Dip or Chew Tobacco: No; Tobacco Cessation Education Requested by Patient: No Hx Alcohol Use: No Hx Substance Use: No Preferred Language: Turkmen Communication Ability: Effective Visual Impairment: No Limitations Herbarium Worker Required: No Beliefs That Will Affect Care: None Current Living Situation: Spouse Current Living Situation Comment: [facility] Other Information That Helps Us Care for You: No Feels Safe at Home: Yes Safety Concerns: Feels Safe At This Time Assistive Devices: Cane, Glasses and Walker Review of Systems Review of Systems: All systems reviewed & are unremarkable except as noted in HPI & below Physical Exam Constitutional: + ill appearing; no acute distress Eyes: PERRL, conjunctivae normal, anicteric sclerae ENMT: external ear and nose normal, oropharynx normal Neck: trachea midline, no thyromegaly Respiratory: Auscultation: + diminished lung sounds Cardiovascular: Rate/Rhythm: regular rate and regular rhythm Heart Sounds: + murmur (Grade 3/6 systolic) Vessels: no JVD Extremities: no edema Chest (Breasts): Additional Comments: Pectus excavatum Kyphotic configuration Gastrointestinal (Abdomen): normal bowel sounds, soft, nontender, no hepatosplenomegaly Musculoskeletal: no cyanosis or clubbing, extremities motor strength 5/5 Results & Data Vital Signs (Past 12 Hours) Vital Signs Temp Pulse Pulse Resp BP Pulse Ox O2 Del Method 12/07/23 11:28 36.5 C 64 18 108/66 94 Room Air 12/07/23 09:00 Nasal Cannula 12/07/23 07:57 63 12/07/23 07:44 36.6 C 63 18 115/67 96 Nasal Cannula 12/07/23 05:32 72 94/60 L 12/07/23 05:05 108 H 96/67 L 12/07/23 04:19 103/69 12/07/23 03:44 88/63 L 12/07/23 03:14 36.7 C 122 H 18 76/53 L 96 Nasal Cannula 12/07/23 02:56 103/71 12/07/23 02:18 36.4 C L 113 H 14 92/65 L 96 Nasal Cannula O2 Flow Rate 12/07/23 11:28 12/07/23 09:00 1 12/07/23 07:57 12/07/23 07:44 12/07/23 05:32 12/07/23 05:05 12/07/23 04:19 12/07/23 03:44 12/07/23 03:14 2 12/07/23 02:56 12/07/23 02:18 3 Laboratory Results Laboratory Results - last 24 hr 12/06/23 12/06/23 12/06/23 11:36 11:40 11:47 WBC 16.62 H RBC 3.97 L Hgb 12.2 Hct 38.0 MCV 95.7 MCH 30.7 MCHC 32.1 RDW Std Deviation 53.6 H RDW Coeff of Matteo 15.6 H Plt Count 165 MPV 11.1 Immature Gran % (Auto) 0.6 Neut % (Auto) 87.0 Lymph % (Auto) 5.4 [place] % (Auto) 6.9 Eos % (Auto) 0.0 Baso % (Auto) 0.1 Neut # (Auto) 14.46 H Lymph # (Auto) 0.90 L [place]key # (Auto) 1.14 H Eos # (Auto) 0.00 Baso # (Auto) 0.02 Immature Gran # (Auto) 0.10 Hypersegmented Neuts 1+ PT 11.4 INR 1.1 APTT 28 PTT Ratio 1.0 Heparin Anti-Xa, Unfract Sodium 137 Potassium 3.9 Chloride 101 Carbon Dioxide 28 Anion Gap 8 BUN 9 Creatinine 0.71 Est Cr Clr Drug Dosing 50.5 Est GFR ( Amer) 91.9 Est GFR (Non-Af Amer) 79.3 BUN/Creatinine Ratio 12.7 Glucose 132 H Lactate 1.7 Calcium 9.3 Magnesium 1.8 Total Bilirubin 0.9 AST 24 ALT 15 Alkaline Phosphatase 51 Troponin I High Sens 27.6 H B-Natriuretic Peptide 1299 H Total Protein 6.6 Albumin 4.2 Globulin 2.4 L Albumin/Globulin Ratio 1.8 Lipase 14 TSH 1.211 Urine Color Urine Appearance Urine pH Ur Specific [place] Urine Protein Urine Glucose (UA) Urine Ketones Urine Blood Urine Nitrite Urine Bilirubin Urine Urobilinogen Ur Leukocyte Esterase Urine WBC (Auto) Urine RBC (Auto) U Hyaline Cast (Auto) U Epithel Cells (Auto) Urine Bacteria (Auto) Adenovirus (PCR) Not Detected B. pertussis DNA (PCR) Not Detected B.parapertussis DNA PCR Not Detected C. pneumoniae DNA (PCR) Not Detected Coronavirus OC43 (PCR) Not Detected Coronavirus HKU1 (PCR) Not Detected Coronavirus 229E (PCR) Not Detected SARS-CoV-2 (PCR) Not Detected Coronavirus NL63 (PCR) Not Detected Human Metapneumovir PCR Not Detected Influenza Type A (PCR) Not Detected Influenza Type B (PCR) Not Detected M. pneumoniae (PCR) Not Detected Parainfluenza 1 (PCR) Not Detected Parainfluenza 2 (PCR) Not Detected Parainfluenza 3 (PCR) Not Detected Parainfluenza 4 (PCR) Not Detected RSV (PCR) Not Detected Entero/Rhino (PCR) Not Detected 12/06/23 12/06/23 12/07/23 11:50 13:53 03:18 WBC 10.52 RBC 3.73 L Hgb 11.3 L Hct 34.8 L MCV 93.3 MCH 30.3 MCHC 32.5 RDW Std Deviation 53.1 H RDW Coeff of Matteo 15.7 H Plt Count 145 MPV 11.3 Immature Gran % (Auto) 0.4 Neut % (Auto) 78.2 Lymph % (Auto) 14.4 [place] % (Auto) 6.6 Eos % (Auto) 0.3 Baso % (Auto) 0.1 Neut # (Auto) 8.23 H Lymph # (Auto) 1.52 [place] # (Auto) 0.69 H Eos # (Auto) 0.03 Baso # (Auto) 0.01 Immature Gran # (Auto) 0.04 Hypersegmented Neuts PT INR APTT PTT Ratio Heparin Anti-Xa, Unfract Sodium 136 Potassium 3.8 Chloride 103 Carbon Dioxide 25 Anion Gap 8 BUN 11 Creatinine 0.75 Est Cr Clr Drug Dosing 47.8 Est GFR ( Amer) 86.0 Est GFR (Non-Af Amer) 74.2 BUN/Creatinine Ratio 14.7 Glucose 135 H Lactate Calcium 8.9 Magnesium 1.9 Total Bilirubin AST ALT Alkaline Phosphatase Troponin I High Sens 27.8 H B-Natriuretic Peptide Total Protein Albumin Globulin Albumin/Globulin Ratio Lipase TSH Urine Color Yellow Urine Appearance Clear Urine pH 8.5 H Ur Specific [place] 1.008 Urine Protein Trace H Urine Glucose (UA) Negative Urine Ketones Negative Urine Blood 2+ H Urine Nitrite Negative Urine Bilirubin Negative Urine Urobilinogen Negative Ur Leukocyte Esterase Negative Urine WBC (Auto) 0-5 Urine RBC (Auto) 11-20 H U Hyaline Cast (Auto) 0-2 U Epithel Cells (Auto) 0-2 Urine Bacteria (Auto) None Seen Adenovirus (PCR) B. pertussis DNA (PCR) B.parapertussis DNA PCR C. pneumoniae DNA (PCR) Coronavirus OC43 (PCR) Coronavirus HKU1 (PCR) Coronavirus 229E (PCR) SARS-CoV-2 (PCR) Coronavirus NL63 (PCR) Human Metapneumovir PCR Influenza Type A (PCR) Influenza Type B (PCR) M. pneumoniae (PCR) Parainfluenza 1 (PCR) Parainfluenza 2 (PCR) Parainfluenza 3 (PCR) Parainfluenza 4 (PCR) RSV (PCR) Entero/Rhino (PCR) 12/07/23 12/07/23 04:07 10:01 WBC RBC Hgb Hct MCV MCH MCHC RDW Std Deviation RDW Coeff of Matteo Plt Count MPV Immature Gran % (Auto) Neut % (Auto) Lymph % (Auto) [place] % (Auto) Eos % (Auto) Baso % (Auto) Neut # (Auto) Lymph # (Auto) [place]key # (Auto) Eos # (Auto) Baso # (Auto) Immature Gran # (Auto) Hypersegmented Neuts PT 12.4 H INR 1.2 H APTT 29 PTT Ratio 1.1 Heparin Anti-Xa, Unfract < 0.10 L 0.42 Sodium Potassium Chloride Carbon Dioxide Anion Gap BUN Creatinine Est Cr Clr Drug Dosing Est GFR ( Amer) Est GFR (Non-Af Amer) BUN/Creatinine Ratio Glucose Lactate Calcium Magnesium Total Bilirubin AST ALT Alkaline Phosphatase Troponin I High Sens B-Natriuretic Peptide Total Protein Albumin Globulin Albumin/Globulin Ratio Lipase TSH Urine Color Urine Appearance Urine pH Ur Specific [place] Urine Protein Urine Glucose (UA) Urine Ketones Urine Blood Urine Nitrite Urine Bilirubin Urine Urobilinogen Ur Leukocyte Esterase Urine WBC (Auto) Urine RBC (Auto) U Hyaline Cast (Auto) U Epithel Cells (Auto) Urine Bacteria (Auto) Adenovirus (PCR) B. pertussis DNA (PCR) B.parapertussis DNA PCR C. pneumoniae DNA (PCR) Coronavirus OC43 (PCR) Coronavirus HKU1 (PCR) Coronavirus 229E (PCR) SARS-CoV-2 (PCR) Coronavirus NL63 (PCR) Human Metapneumovir PCR Influenza Type A (PCR) Influenza Type B (PCR) M. pneumoniae (PCR) Parainfluenza 1 (PCR) Parainfluenza 2 (PCR) Parainfluenza 3 (PCR) Parainfluenza 4 (PCR) RSV (PCR) Entero/Rhino (PCR) (4) Leukocytosis Leukocytosis type: unspecified Qualified Code(s): D72.829 - Elevated white blood cell count, unspecified
[2023-12-07] MEDS: cefTRIAXone SODIUM 2,000 MG/50 ML BAG IV SCH (12:09)
[2023-12-07] MEDS ORDERED: AZITHROMYCIN 500 MG in DEXTROSE 5% 250 ML IV SCH (14:30)
--- NOTE | 2023-12-07 19:51 | Billing Data ---
Date of Service December 07, 2023 Coding Level of Care Code 17921 SUB INP/OBS CARE
[2023-12-07] MEDS: METOPROLOL SUCC 25MG EXT REL TAB PO SCH (20:42)
--- NOTE | 2023-12-08 05:04 | Electrocardiogram Report ---
Test Reason : Blood Pressure : / mmHG Vent. Rate : 117 BPM Atrial Rate : 122 BPM P-R Int : 000 ms QRS Dur : 126 ms QT Int : 378 ms P-R-T Axes : 000 -23 141 degrees QTc Int : 527 ms Atrial fibrillation with rapid ventricular response Left bundle branch block Abnormal ECG When compared with ECG of 06-DEC-2023 11:11, Atrial fibrillation has replaced Sinus rhythm Confirmed by Rosendo Park ([id number]) on 12/08/2023 5:04:30 AM Referred By: REFERRED SELF Confirmed By:Rosendo Park
--- NOTE | 2023-12-08 05:05 | Electrocardiogram Report ---
Test Reason : Blood Pressure : / mmHG Vent. Rate : 066 BPM Atrial Rate : 066 BPM P-R Int : 200 ms QRS Dur : 140 ms QT Int : 480 ms P-R-T Axes : 074 -30 137 degrees QTc Int : 503 ms Sinus rhythm with Premature atrial complexes Left axis deviation Left bundle branch block Abnormal ECG When compared with ECG of 07-DEC-2023 02:33, Sinus rhythm has replaced Atrial fibrillation Vent. rate has decreased BY 51 BPM Confirmed by Rosendo Park ([id number]) on 12/08/2023 5:05:04 AM Referred By: REFERRED SELF Confirmed By:Rosendo Park
[2023-12-08 06:55] LABS: ANTI-Xa, UFH(UnfractionatedHep 0.48 IU/ml (0.3-0.7)
[2023-12-08 07:04] LABS: BUN Creatinine Ratio 13.8 (10-20); Calcium 8.1 mg/dl (8.6-10.3); Creatinine Clr Calc Pharmacy 44.8 ml/min; Est GFR (African American) 79.6 ml/min; Est GFR (Non-African American) 68.7 ml/min; Magnesium 1.9 mg/dl (1.7-2.4); Phosphorus 2.3 mg/dl (2.5-4.9); Potassium 3.4 mmol/L (3.5-5.1)
[2023-12-08 07:20] LABS: Basophils # (auto) 0.02 K/uL (0.00-0.20); Basophils % (auto) 0.2 %; Eosinophils # (auto) 0.18 K/uL (0.00-0.50); Eosinophils % (auto) 2.2 %; Hematocrit (blood only) 31.9 % (37.0-47.0); Hemoglobin 10.2 g/dl (12.0-16.0); Immature Granulocytes # (auto) 0.03 K/uL (0.01-0.20); Immature Granulocytes % (auto) 0.4 %; Lymphocytes # (auto) 1.34 K/uL (1.20-3.40); Lymphocytes % (auto) 16.1 %; Mean Corpuscular Hemoglobin 30.2 pg (25.0-34.0); Mean Corpuscular Volume 94.4 fL (80.0-100.0); Mean Platelet Volume 11.2 fL (9.4-12.4); Monocytes # (auto) 0.55 K/uL (0.11-0.59); Monocytes % (auto) 6.6 %; Neutrophils # (auto) 6.19 K/uL (1.40-6.50); Neutrophils % (auto) 74.5 %; Platelet Count 125 K/uL (130-400); RDW Coefficient of Variation 15.3 % (11.5-14.5); RDW Standard Deviation 52.5 fL (36.4-46.3); Red Blood Count 3.38 M/uL (4.20-5.40); White Blood Count 8.31 K/ul (4.8-10.8)
--- NOTE | 2023-12-08 07:21 | Hospitalist Progress Note ---
Date of Service December 08, 2023 Assessment & Plan (1) Left lower lobe pneumonia: (2) Elevated troponin: (3) Chronic diastolic heart failure: (4) HOCM (hypertrophic obstructive cardiomyopathy): (5) Rheumatoid arthritis: (6) Hypertension: Plan Vane is a 83-year-old female with a past medical history including hypertrophic cardiomyopathy, hypertension, hyperlipidemia, chronic kidney disease stage IIIa, diverticulitis, and rheumatoid arthritis who presents with left-sided chest pain, constipation, chills, and shortness of breath starting 12/04 in the evening. She presented to our ED 12/05 after she took metoprolol succinate and aspirin, which did not help. She was hypoxic on presentation (89%), which improved with oxygen. Chest XR shows a left lower lung pneumonia. ECG showed sinus tachycardia, no evidence of acute LA. Troponin was elevated, likely secondary to cardiac injury or mismatch from dyspnea. 1. Left lower lobe pneumonia: Worsening left-sided chest pain, chills, and SOB since the evening of 12/04. Hypoxic on arrival, now stable on O2 nasal canula. BioFire negative, CXR showing left pleural effusion with left basilar opacity. Leukocytosis was 16.62 with neutrophilic predominance. PT/OT consulted for weakness/fatigue -WBC 8.31 K/ul this AM, consider leukocytosis resolved -Rocephin 2000 mg IV q24h, blood culture after 24 hours showed no growth. 48 hours pending. Cefdinir bid x 10 at discharge -Azithromycin stopped after Afib with RVR overnight -Acetaminophen as needed for pain/fever -Continue supplemental oxygen as needed to maintain SpO2 > 94% -Continuous pulse ox -Trend labs - CBC, BMP, mag 2. Afib with RVR: Overnight event, put on amiodarone drip, cardiology consulted. Returned to sinus rhythm 5:22 AM 12/06, echo 12/06 similar to echo 08/06/22 -No acute events overnight -Heart rate 73 this AM -Amiodarone po 200 mg - CHADS VASC = 6. - Heparin drip d/c today --> Eliquis 2.5 mg BID started today. Reduced dose due to age and weight -Continuous telemetry monitoring -Continue metoprolol 3. Elevated troponin: Elevated troponin at 27.6-->27.8 on arrival. Likely due to a combination of left lower lobe pneumonia and atrial fibrillation -Continuous telemetry monitoring 4. Chronic diastolic heart failure: BNP elevated at 1299 (last 1478 on 08/05/2022), Echo 08/06/22 showed LVEF > 70% and severe asymmetric hypertrophy. History of hypertrophic cardiomyopathy -Echo 12/07/23 similar to echo 08/06/22 5. HOCM (hypertrophic obstructive cardiomyopathy): Chronic; noted 6. Constipation: Constipation x 1 week, KUB showed nonobstructive gas pattern and mild fecal retention -Current home regimen is ineffective per patient, consists of Cytotec, stool softeners tid, and Senna-S bid -MiraLax as needed, suggest this for home regimen as well 7. Rheumatoid arthritis: -Continue prednisone 8. Hypertension: -Continue metoprolol 9. Normocytic anemia: Likely in the context of the patient's numerous chronic diseases and pneumonia -RBC 3.38 M/uL, Hgb 10.2 g/dl, Hct 31.9% -Trend labs 10. Elevated PT/INR: -PT 12.4 seconds, INR 1.2 - s/p heparin drip -Trend labs Plan: Disposition: MedSurg telemetry DNR/DNI Regular diet VTE PPx: Eliquis 2.5 mg Admission and Anticipated Discharge Date Admission Date: December 06, 2023 Supervising Physician Co-Signing Physician Notes I personally examined the patient and verified all kelly points of history and exam, discussed case, and agree with decision making with Dr Petey Adams A little bit of nausea a little bit of headache a little bit of cough a little bit of dyspnea on exertion. Overall feels better than whenever she came in, but slightly worse than yesterday.. Vitals noted, in general she is awake and alert pleasant no distress. HEENT normocephalic atraumatic mucous membranes moist. Breathing unlabored no accessory muscle use good effort. Skin shows no rashes no pallor or icterus. Neuro without focal deficits. Community-acquired pneumonia, sepsis present on admission, A-fib with RVR complicated by HOCM and mitral stenosisfortunately doing much better. Rate is controlled. Clinically overall improving, but feels a little bit worse today. Continue hospital stay for now. Hopefully home soon. Anticoagulated. Subjective Vane feels a little worse than she felt yesterday. She reports having a harder time breathing again, but it is not as bad as it was before she came to the hospital. She also reports slight nausea and a headache that runs across the front of her forehead. She was still able to eat breakfast and denied vomiting. She has new right sided rib pain that is constant and dull, rated a 6/10. Review of Systems Review of Systems: Negative except as noted earlier. Physical Exam Constitutional: Alert, oriented, in no acute distress Respiratory: + labored breathing; no cough Auscult ation: lungs clear to auscultation bilaterally Cardiovascular: Rate/Rhythm: regular rate Heart Sounds: + murmur (diastolic, whoosh) Chest (Breasts): Additional Comments: Tenderness and pain to palpation on the right side Results & Data Results & Data Vital Signs (Past 12 Hours) Vital Signs Temp Pulse Pulse Resp BP Pulse Ox O2 Del Method 12/08/23 03:01 37.1 C 67 18 104/67 95 Room Air 12/07/23 22:51 36.9 C 67 18 132/71 93 Room Air 12/07/23 21:58 65 12/07/23 19:57 36.8 C 63 18 121/77 94 Room Air Laboratory Results 12/08/23 12/07/23 06:03 10:01 WBC 8.31 RBC 3.38 L Hgb 10.2 L Hct 31.9 L MCV 94.4 MCH 30.2 MCHC 32.0 RDW Std Deviation 52.5 H RDW Coeff of Matteo 15.3 H Plt Count 125 L MPV 11.2 Immature Gran % (Auto) 0.4 Neut % (Auto) 74.5 Lymph % (Auto) 16.1 [place] % (Auto) 6.6 Eos % (Auto) 2.2 Baso % (Auto) 0.2 Neut # (Auto) 6.19 Lymph # (Auto) 1.34 [place] # (Auto) 0.55 Eos # (Auto) 0.18 Baso # (Auto) 0.02 Immature Gran # (Auto) 0.03 Heparin Anti-Xa, Unfract 0.48 0.42 Sodium 139 Potassium 3.4 L Chloride 104 Carbon Dioxide 26 Anion Gap 9 BUN 11 Creatinine 0.80 Est Cr Clr Drug Dosing 44.8 Est GFR ( Amer) 79.6 Est GFR (Non-Af Amer) 68.7 BUN/Creatinine Ratio 13.8 Glucose 125 H Calcium 8.1 L Phosphorus 2.3 L Magnesium 1.9 Resident Activity Tracking Resident Involvement: Resident Care Provided Care Provided: Adult [facility]
[2023-12-08] MEDS: AMIODARONE 200 MG TAB PO SCH (09:04)
[2023-12-08] MEDS: POTASSIUM CHLORIDE CRTAB 20 MEQ TABCR PO SCH (09:05)
[2023-12-08] MEDS: APIXABAN 2.5 MG TAB PO SCH (11:19)
--- NOTE | 2023-12-08 13:06 | Cardiology Progress Note ---
Date of Service December 08, 2023 Assessment & Plan (1) Atrial fibrillation with rapid ventricular response: (2) HOCM (hypertrophic obstructive cardiomyopathy): (3) Hypoxia: (4) Leukocytosis: Plan Patient is an 83-year-old female, immunocompromised secondary to chronic immunosuppressive for rheumatoid arthritis, prednisone and methotrexate presents with weakness fatigue and cough, chills possible left lower lobe pneumonia. Underlying medical issues and cardiac issues are complex but include severe left hypertrophy with hypertrophic obstructive cardiomyopathy and hyperdynamic LV function, left chronic left bundle branch block. Valvular disease also present with calcific mitral stenosis. Clinical history notable for recent palpitations in addition to above symptoms. Following admission patient lapsed into atrial fibrillation with rapid ventricular response and hemodynamic instability with symptomatic hypotension Patient has spontaneously returned to sinus rhythm following IV amiodarone load. Recommendations: 1. Paroxysmal atrial fibrillation: Event with elevated heart rate poorly tolerated as expected given underlying hypertrophic pathology and outflow tract obstruction. High likelihood of recurrence. Would recommend completing current infusion bag of amiodarone and then will transition to oral amiodarone. Metoprolol succinate reduced to 25 mg twice per day. Daily EKG Hypertrophic obstructive cardiomyopathy, severe left atrial dilatation and mitral stenosis place patient at very high risk of thromboembolic phenomena approaching 20% annually. Will require long-term anticoagulation unless absolutely contraindicated. Currently on IV heparin will need to transition to oral regimen on discharge 2. Left lower lobe pneumonia/left pleural effusion and immunocompromise patient per primary service. Will need to follow volume status closely 3. Mild elevation in troponin without evolutiont not suggestive of type I myocardial infarction. Demand ischemia apparent 4. Conduction system disease with chronic left bundle branch block will need to follow cautiously as amiodarone added. Metoprolol succinate reduced as above 12/08/2023 No further atrial fibrillation. Would continue amiodarone as ordered 20 mg daily, chronic anticoagulation indicated. EKG check QT interval today and in a.m. Follow volume status Admission and Anticipated Discharge Date Admission Date: December 06, 2023 Subjective Patient was seen and personally examined No further atrial fibrillation Nauseated with headache and shortness of breath this morning. Minimal cough. Weight stable Physical Exam Constitutional: + ill appearing; no acute distress Eyes: PERRL, conjunctivae normal, anicteric sclerae ENMT: external ear and nose normal, oropharynx normal Neck: trachea midline, no thyromegaly Respiratory: Auscultation: + diminished lung sounds Cardiovascular: Rate/Rhythm: regular rate and regular rhythm Heart Sounds: + murmur (Grade 3/6 systolic) Vessels: no JVD Extremities: no edema Gastrointestinal (Abdomen): normal bowel sounds, soft, nontender, no hepatosplenomegaly Musculoskeletal: no cyanosis or clubbing, extremities motor strength 5/5 Results & Data Vital Signs (Past 12 Hours) Vital Signs Temp Pulse Pulse Resp BP Pulse Ox O2 Del Method 12/08/23 11:00 36.9 C 83 16 115/66 98 Room Air 12/08/23 08:02 73 12/08/23 08:00 37.2 C 77 18 110/74 95 Room Air 12/08/23 03:01 37.1 C 67 18 104/67 95 Room Air Diagnostic Findings Laboratory Results - last 24 hr 12/08/23 06:03 WBC 8.31 RBC 3.38 L Hgb 10.2 L Hct 31.9 L MCV 94.4 MCH 30.2 MCHC 32.0 RDW Std Deviation 52.5 H RDW Coeff of Matteo 15.3 H Plt Count 125 L MPV 11.2 Immature Gran % (Auto) 0.4 Neut % (Auto) 74.5 Lymph % (Auto) 16.1 [place] % (Auto) 6.6 Eos % (Auto) 2.2 Baso % (Auto) 0.2 Neut # (Auto) 6.19 Lymph # (Auto) 1.34 [place] # (Auto) 0.55 Eos # (Auto) 0.18 Baso # (Auto) 0.02 Immature Gran # (Auto) 0.03 Heparin Anti-Xa, Unfract 0.48 Sodium 139 Potassium 3.4 L Chloride 104 Carbon Dioxide 26 Anion Gap 9 BUN 11 Creatinine 0.80 Est Cr Clr Drug Dosing 44.8 Est GFR ( Amer) 79.6 Est GFR (Non-Af Amer) 68.7 BUN/Creatinine Ratio 13.8 Glucose 125 H Calcium 8.1 L Phosphorus 2.3 L Magnesium 1.9 (4) Leukocytosis Leukocytosis type: unspecified Qualified Code(s): D72.829 - Elevated white blood cell count, unspecified
--- NOTE | 2023-12-08 16:37 | Billing Data ---
Date of Service December 08, 2023 Coding Level of Care Code 35126 SUB INP/OBS CARE
[2023-12-09 06:13] LABS: ANTI-Xa, UFH(UnfractionatedHep 0.65 IU/ml (0.3-0.7)
[2023-12-09 06:28] LABS: BUN Creatinine Ratio 9.6 (10-20); Calcium 8.7 mg/dl (8.6-10.3); Creatinine Clr Calc Pharmacy 48.1 ml/min; Est GFR (African American) 88.9 ml/min; Est GFR (Non-African American) 76.7 ml/min; Magnesium 1.9 mg/dl (1.7-2.4); Phosphorus 2.4 mg/dl (2.5-4.9); Potassium 3.7 mmol/L (3.5-5.1)
[2023-12-09 06:46] LABS: Basophils # (auto) 0.02 K/uL (0.00-0.20); Basophils % (auto) 0.3 %; Eosinophils # (auto) 0.19 K/uL (0.00-0.50); Eosinophils % (auto) 2.6 %; Hematocrit (blood only) 33.4 % (37.0-47.0); Hemoglobin 10.8 g/dl (12.0-16.0); Immature Granulocytes # (auto) 0.04 K/uL (0.01-0.20); Immature Granulocytes % (auto) 0.5 %; Lymphocytes # (auto) 1.23 K/uL (1.20-3.40); Lymphocytes % (auto) 16.7 %; Mean Corpuscular Hemoglobin 30.3 pg (25.0-34.0); Mean Corpuscular Hgb Conc 32.3 g/dL (32.0-36.0); Mean Corpuscular Volume 93.6 fL (80.0-100.0); Mean Platelet Volume 10.5 fL (9.4-12.4); Monocytes # (auto) 0.65 K/uL (0.11-0.59); Monocytes % (auto) 8.8 %; Neutrophils # (auto) 5.23 K/uL (1.40-6.50); Neutrophils % (auto) 71.1 %; Platelet Count 181 K/uL (130-400); RDW Coefficient of Variation 15.3 % (11.5-14.5); RDW Standard Deviation 51.8 fL (36.4-46.3); Red Blood Count 3.57 M/uL (4.20-5.40); White Blood Count 7.36 K/ul (4.8-10.8)
--- NOTE | 2023-12-09 10:43 | Discharge Summary ---
Date of Service December 09, 2023 Admission HPI Per Admitting Provider Vane is an 83-year-old female with PMH of HOCM, HTN, HLD, CKD stage IIIa, CHF, diverticulitis, GI bleed, and rheumatoid arthritis. She presented via EMS for left-sided chest pain, constipation, chills, and SOB that began the evening of 12/04. Patient reports that she woke up around 2:30 AM on the morning of 12/05, with difficulty breathing, nausea, and pain in the left side of her chest which she attributed to "gas". She felt like she was not breathing right, and initially thought that she was going to throw up. Patient has had constipation and fatigue for the past week, and believes it was initially related to that, but then developed headache and chills. Patient reports her SOB is both at rest and with exertion. She is not sure if it is worse when she lies flat on her back, and she normally sleeps propped up with pillows. She describes the left- sided chest pain as constant. The pain is exacerbated with deep breaths, which leads to "sharp, achy" pain down the center of her chest. Patient reports that she took 4 baby aspirin's this morning for the pain. She also took her metoprolol, but no other medications. Patient manages her own medications at home, does not believe there is been any recent change in medications. Patient does not use supplemental oxygen at home. No sick contacts. Patient denies smoking, tobacco use, and recent alcohol use. Patient reports that she does have a PCN allergy, and has developed a rash when taking amoxicillin in the past for dental work; however she reports that she has tolerated Rocephin well so far. Patient's SpO2 was 89% on RA on arrival, and she was mildly tachycardic at 103 bpm. ED course: Rocephin 2000 g IV ROS: Patient endorses low-grade fever, chills, body aches, LOUISE, lightheadedness, SOB both at rest and with exertion, chest tightness, pleuritic CP, left shoulder pain (which patient reports has been ongoing), nausea, and constipation. Patient denies cough, vomiting, diarrhea, or numbness/tingling in the arms or legs. Admission Exam Per Admitting Provider General: no acute distress; non-toxic appearing; frail appearing; cooperative; 89% SpO2 on RA HEENT: normocephalic, atraumatic; no scleral icterus; PERRLA w/ EOMs intact; moist mucus membrane; vision and hearing grossly intact Neck: supple; no lymphadenopathy; trachea midline Skin: Pale; warm, dry without signs of tenting; no cyanosis; no rashes, bruising, lesions, or erythema noted CV: Mild substernal tenderness to palpation; pectus excavatum; no signs of rashes or bruising on the abdomen or chest wall; RRR; S1/S2 normal; no murmurs/rubs/gallops; pulses intact and symmetric at radial, DP, and PT Lungs: no acute respiratory distress; symmetrical chest wall expansion; mild crackles auscultated in the lower lung gooden bilaterally ABD: Soft, NTP; BS present; no rebound/guarding; no distention MSK: no tics or fasciculations; no edema noted in the LEs b/l, nonerythematous Neuro: A&Ox3; normal mood and affect; fluent speech; no focal deficits; sensation grossly intact in the LEs b/l Principal Diagnosis Pneumonia Discharge Exam Constitutional Alert and oriented, no acute distress Respiratory Auscultation: lungs clear to auscultation bilaterally; no crackles, no rales and no wheezes Cardiovascular RRR, faint diastolic murmur Gastrointestinal (Abdomen) normal bowel sounds, soft, nontender, no hepatosplenomegaly Discharge Data Allergies Allergy/AdvReac Type Severity Reaction Status Date / Time bee venom protein (honey bee) Allergy Intermediate BEE/WASP-NAUSEA Verified 12/06/23 14:19 AND DIZZINESS Penicillins Allergy Intermediate RASH (PER Verified 12/06/23 14:19 PT, WAS A LONG TIME AGO)AMOXICILLIN AND PCN amoxicillin [From Augmentin] Allergy Mild Unknown Verified 12/06/23 14:19 clavulanic acid Allergy Mild Unknown Verified 12/06/23 14:19 [From Augmentin] esomeprazole Allergy Mild NAUSEA Verified 12/06/23 14:19 VOMITING magnesium citrate Allergy Mild projectile Verified 12/06/23 14:19 vomitting antipyrine Allergy Unknown RASH AND Verified 12/06/23 14:19 BLISTERS benzocaine Allergy Unknown dental - Verified 12/06/23 14:19 tingling on tongue hydroxychloroquine Allergy Unknown UNKNOWN Verified 12/06/23 14:19 misoprostol Allergy Unknown UNKNOWN Verified 12/06/23 14:19 phenylephrine Allergy Unknown UNKNOWN Verified 12/06/23 14:19 pseudoephedrine Allergy Unknown UNKNOWN Verified 12/06/23 14:19 Serotonin 5HT-3 Antagonists Allergy Unknown UNKNOWN Verified 12/06/23 14:19 Sulfa (Sulfonamide Allergy Unknown UNKNOWN Verified 12/06/23 14:19 Antibiotics) citalopram AdvReac Mild GI UPSET Verified 12/06/23 14:19 clarithromycin AdvReac Mild GI UPSET Verified 12/06/23 14:19 denosumab [From Prolia] AdvReac Unknown Unknown Unverified 12/06/23 14:19 Consultations 12/06/23 12:59 ED Decision to Admit Stat 12/07/23 03:40 Consult Cardiology Routine Procedures Performed Chest X-Ray 12/06/23 11:11 XR chest 1V portable CLINICAL HISTORY: Chest pain, nonspecific COMPARISON STUDY: Chest radiograph August 07, 2022. FINDINGS: Electronic device projects over the left chest. S-shaped scoliosis of the thoracic spine is incidentally noted. There is no pneumothorax. Small left pleural effusion is present. There is moderate left basilar opacity. Interstitial thickening is present. There is mild cardiomegaly and extensive mitral annular calcification. No pneumothorax. IMPRESSION: 1. Cardiomegaly with mild interstitial pulmonary edema. 2. Small left pleural effusion with left basilar opacity which could reflect pneumonia or atelectasis. Radiographic follow-up to ensure resolution is recommended. ACT 112: Negative or not required by law. Electronically signed by: Francois Robbins M.D. 12/06/2023 11:49 AM KUB X-Ray 12/06/23 11:21 KUB HISTORY: constipation COMPARISON: None. FINDINGS: The bowel gas pattern is unremarkable. There are no dilated loops of small bowel to suggest an obstruction. No renal calculi. No ureteral calculi. No pneumoperitoneum or pneumatosis. S-shaped scoliosis of the thoracolumbar spine. Extensive posterior fusion hardware within the lumbosacral spine. The hardware appears intact. Mild fecal retention which has improved. Left basilar opacity/effusion is noted. IMPRESSION: 1. Nonobstructive bowel gas pattern. 2. Mild fecal retention which has improved. 2. Left basilar opacity/effusion is partially visualized. ACT 112: Negative or not required by law. Electronically signed by: Derrick Jimenez M.D. 12/06/2023 12:44 PM Hospital Course (1) Left lower lobe pneumonia: (2) Elevated troponin: (3) Chronic diastolic heart failure: (4) HOCM (hypertrophic obstructive cardiomyopathy): (5) Rheumatoid arthritis: (6) Hypertension: Liyah Cifuentes is a 83-year-old female who presented to our ED 12/05 with left-sided chest pain, chills, shortness of breath, and constipation since 12/04. She was hypoxic on presentation (89%) and chest XR showed a left lower lung pneumonia. Overnight on 12/06 she developed an atrial fibrillation with RVR and returned to sinus rhythm a few hours later after being placed on Amiodarone Drip 1. Left lower lobe pneumonia: Patient presented with worsening left-sided chest pain, chills, and SOB since the evening of 12/04. Hypoxic on arrival -CXR showing left pleural effusion with left basilar opacity. Leukocytosis was 16.62 with neutrophilic predominance. -She was treated with Rocephin 2000 mg IV q24h -Azithromycin IV was d/c due to new onset atrial fibrillation -Patient was discharged with Cefdinir bid x 5 days 2. Afib with RVR: Overnight event, put on amiodarone drip. Returned to sinus rhythm 5:22 AM 12/06. Stable -She was treated with heparin drip and amiodarone IV -Discharged with Eliquis 2.5 mg BID (reduced dose due to age and weight) and amiodarone po 200 mg -Metoprolol changed from 50 mg po to 25 mg po bid 3. Elevated troponin: Elevated troponin at 27.6-->27.8 on arrival. Likely due to a combination of left lower lobe pneumonia and atrial fibrillation 4. Chronic diastolic heart failure: BNP elevated at 1299. Patient remained euvolemic. History of hypertrophic cardiomyopathy -Echo 12/07/23 similar to echo 08/06/22 -Continue home meds 5. HOCM (hypertrophic obstructive cardiomyopathy): -Chronic; noted 6. Constipation: Constipation x 1 week, KUB showed nonobstructive gas pattern and mild fecal retention. Miralax induced diarrhea 12/07 and early 12/08 -Discontinue Cytotec and Senna-S -MiraLax 17 mg BID and stool softeners as needed for home regimen 7. Rheumatoid arthritis: -Continue prednisone 8. Hypertension: -Continue with adjusted dose of metoprolol 25 mg po bid 9. Normocytic anemia: Likely in the context of the patient's numerous chronic diseases and pneumonia -Stable Total Time Total Time Spent Total Time Spent (In Minutes): <30 Discharge Plan Discharge Items Patient Disposition: Home - Self-Care Reason For Visit: SOB/CHILLS,L-SIDED CP Discharge Diagnosis: Pneumonia Atrial Fibrillation Activity: Resume your previous activity Sexual Activity: When tolerated Exercise/Sports: Gradually increase as tolerated Non-emergency contact: Primary Care Provider Call non-emergency contact if: you have any medication questions, your symptoms worsen and your temperature is above 101 Follow-up/Referrals: Aaron Wolf MD [Primary Care Provider] - (Spoke with Dr. Wolf's nurse, they will reach out to the patient to schedule follow up. ) Diet: Heart Healthy Addtl Attending Provider Instructions: You were admitted due to pneumonia and paroxysmal atrial fibrillation. You were treated with IV antibiotics for the pneumonia You will continue your antibiotic at home. For the atrial fibrillation we started you on 2 new medications: Amiodarone and Eliquis (Anticoagulation). New Medications: -Amiodarone 200 mg po Daily -Eliquis 2.5 mg twice a day -Cefdinir 500 mg twice a day for 5 days - Miralax 17 mg (full cap) twice day Change medications: Metoprolol 25 mg twice a day Follow-up appointments: Make a follow-up appointment with your PCP within the next week. It is very important that you follow up with them shortly after discharge from the hospital. Keep all your follow-up appointments as already scheduled. If you cannot make an appointment, notify your provider. Medications: Your medication list has been reviewed and reconciled upon discharge to ensure accuracy and continuity of care. An updated list of all your medications is included with your hospital discharge paperwork. Please review this list closely, and make note of any changes. Take your medications as instructed; do not skip a dose of your medicines. Make sure all of your doctors know every medicine you are taking (including khby-sge-slqqcli medicines, vitamins, and supplements). Call your primary care provider before taking any new medicines (including rtgr-nfr-qdgtorf medicines, vitamins, and supplements), because some of these may interact with your current medications, or may make your symptoms worse. Tell your primary care provider if you cannot afford your medications. CALL 911 OR GO TO THE EMERGENCY DEPARTMENT if you experience any of the following: Sudden, severe abdominal pain or nausea/vomiting Severe chest pain, or chest pain that radiates (moves) to your jaw or arm Sudden, severe shortness of breath or difficulty breathing Thank you for allowing us to participate in your care. Pending Studies at Discharge: No Stand-Alone Forms: [facility], Smoking Cessation Medications and DC Order Prescriptions: New amiodarone 200 mg Tablet 200 mg PO QAM 30 Days Qty: 30 0RF metoprolol succinate 25 mg Tablet Extended Release 24 Hr 25 mg PO AMHS 30 Days Qty: 30 0RF Eliquis 2.5 mg Tablet 2.5 mg PO BID 30 Days Qty: 60 0RF polyethylene glycol 3350 [Miralax] 17 gram Powder In Packet 17 g PO BID Qty: 30 0RF cefdinir 300 mg capsule 300 mg PO BID 5 Days Qty: 10 0RF methotrexate sodium 2.5 mg Tablet 22.5 mg PO Lopez@0900 Qty: 0 0RF Continued atorvastatin 10 mg Tablet 10 mg PO HS prednisone 5 mg Tablet 7.5 mg PO QAM Rx Instructions: 1 & 1/2 tablet aspirin 81 mg Tablet,Delayed Release (Dr/Ec) 81 mg PO QAM acetaminophen [Tylenol Extra Strength] 500 mg Tablet 1,000 mg PO Q8H PRN (Reason: Pain) lorazepam 0.5 mg Tablet 0.5 mg PO HS pantoprazole 40 mg Tablet,Delayed Release (Dr/Ec) 40 mg PO QAM cholecalciferol (vitamin D3) [Vitamin D3] 1,000 unit Capsule 1,000 unit PO QAM Calcium 600 + D(3) 600 mg calcium- 200 unit Capsule 1 tab PO QAM fluticasone propionate 50 mcg/actuation [place],Suspension 2 spray INTRANASAL QAM folic acid 800 mcg Tablet 2,000 mcg PO DAILY Rx Instructions: TAKES 2 1/2 TABS. multivitamin Tablet 1 tab PO DAILY cetirizine 10 mg Tablet 10 mg PO DAILY tramadol 50 mg tablet 50 mg PO Q6H PRN (Reason: Pain) calcium carbonate 500 mg calcium (1,250 mg) Tablet 500 mg PO DAILY ondansetron 4 mg Tablet,Disintegrating 4 mg PO Q8H PRN (Reason: Nausea And Vomiting) Soothe XP 1-4.5 % Drops 1 drp OPHTHALMIC (EYE) BID PRN (Reason: Dry Eye(S)) melatonin 3 mg Capsule 9 mg PO HS Discontinued metoprolol succinate 50 mg Tablet Extended Release 24 Hr 50 mg PO AMHS methotrexate sodium 2.5 mg Tablet 22.5 mg PO WK Rx Instructions: sundays docusate sodium 50 mg Capsule 50 mg PO BID Discharge Orders: Discharge Order (Routine); Ordered 12/09/23 Ordered By: William Adams Admission Data Admit Date/Time: 12/06/23 13:51 Attending Provider: Ru Basilio Admit Provider: Dale Jasso Primary Care Provider: Aaron Wolf Other Providers: Dale Jasso Other Interventions: Discharge Summary Assessment (RN) Last Done: 12/09/23 13:19 Supervising Physician Co-Signing Physician Notes I personally examined the patient and verified all kelly points of history and ex am, discussed case, and agree with decision making with Dr Petey Adams Generally feeling better and would like to go home. Discussed bowel regimen.. Vitals noted, in general she is awake and alert pleasant no distress. HEENT normocephalic atraumatic mucous membranes moist. Breathing unlabored no accessory muscle use good effort. Skin shows no rashes no pallor or icterus. Neuro without focal deficits. Community-acquired pneumonia, sepsis present on admission, A-fib with RVR complicated by HOCM and mitral stenosis (and causing subsequent demand ischemia)fortunately doing much better. Rate is controlled. Stable for discharge. Finish course of antibiotics for pneumonia. Beta-yasmeen, amiodarone, anticoagulation for A-fib. Simplified bowel regimen to fiber and then titrating dose of MiraLAX based on current bowel movements. Stable for home. Otherwise as above.
--- NOTE | 2023-12-09 11:14 | Cardiology Progress Note ---
Date of Service December 09, 2023 Assessment & Plan (1) Atrial fibrillation with rapid ventricular response: (2) HOCM (hypertrophic obstructive cardiomyopathy): (3) Hypoxia: (4) Leukocytosis: Plan Patient is an 83-year-old female, immunocompromised secondary to chronic immunosuppressive for rheumatoid arthritis, prednisone and methotrexate presents with weakness fatigue and cough, chills possible left lower lobe pneumonia. Underlying medical issues and cardiac issues are complex but include severe left hypertrophy with hypertrophic obstructive cardiomyopathy and hyperdynamic LV function, left chronic left bundle branch block. Valvular disease also present with calcific mitral stenosis. Clinical history notable for recent palpitations in addition to above symptoms. Following admission patient lapsed into atrial fibrillation with rapid ventricular response and hemodynamic instability with symptomatic hypotension Patient has spontaneously returned to sinus rhythm following IV amiodarone load. Recommendations: 1. Paroxysmal atrial fibrillation: Event with elevated heart rate poorly tolerated as expected given underlying hypertrophic pathology and outflow tract obstruction. High likelihood of recurrence. Would recommend completing current infusion bag of amiodarone and then will transition to oral amiodarone. Metoprolol succinate reduced to 25 mg twice per day. Daily EKG Hypertrophic obstructive cardiomyopathy, severe left atrial dilatation and mitral stenosis place patient at very high risk of thromboembolic phenomena approaching 20% annually. Will require long-term anticoagulation unless absolutely contraindicated. Currently on IV heparin will need to transition to oral regimen on discharge 2. Left lower lobe pneumonia/left pleural effusion and immunocompromise patient per primary service. Will need to follow volume status closely 3. Mild elevation in troponin without evolutiont not suggestive of type I myocardial infarction. Demand ischemia apparent 4. Conduction system disease with chronic left bundle branch block will need to follow cautiously as amiodarone added. Metoprolol succinate reduced as above 12/08/2023 No further atrial fibrillation. Would continue amiodarone as ordered 200 mg daily, chronic anticoagulation indicated. EKG check QT interval today and in a.m. Follow volume status 12/09/2023 Clinically improved cardiac status stable Discussed atrial fibrillation in detail with patient Will continue antiarrhythmic therapy with amiodarone 200 mg p.o. daily, anticoagulation with reduced dose Eliquis 2.5 mg twice per day Medication adjustments otherwise as above Has scheduled appointment with cardiology as outpatient later this month No contraindications to discharge Admission and Anticipated Discharge Date Admission Date: December 06, 2023 Subjective Patient was seen and personally examined No further atrial fibrillation Patient looks and feels better this morning. No chest pains or dizziness. Tolerating current medications. Review of Systems Review of Systems: All systems reviewed & are unremarkable except as noted in Subjective Physical Exam Constitutional: no acute distress Eyes: PERRL, conjunctivae normal, anicteric sclerae ENMT: external ear and nose normal, oropharynx normal Neck: trachea midline, no thyromegaly Respiratory: Auscultation: no rales Cardiovascular: Rate/Rhythm: regular rate and regular rhythm Heart Sounds: + murmur (Grade 3/6 systolic) Vessels: no JVD Extremities: no edema Gastrointestinal (Abdomen): normal bowel sounds, soft, nontender, no hepatosplenomegaly Musculoskeletal: no cyanosis or clubbing, extremities motor strength 5/5 Results & Data Vital Signs (Past 12 Hours) Vital Signs Temp Pulse Pulse Resp BP Pulse Ox O2 Del Method 12/09/23 11:03 36.7 C 68 18 122/74 91 Room Air 12/09/23 09:17 86 12/09/23 08:00 Room Air 12/09/23 07:09 36.9 C 64 18 147/74 H 94 Room Air 12/09/23 02:56 36.9 C 68 20 120/67 95 Room Air Laboratory Results Laboratory Results - last 24 hr 12/09/23 05:30 WBC 7.36 RBC 3.57 L Hgb 10.8 L Hct 33.4 L MCV 93.6 MCH 30.3 MCHC 32.3 RDW Std Deviation 51.8 H RDW Coeff of Matteo 15.3 H Plt Count 181 MPV 10.5 Immature Gran % (Auto) 0.5 Neut % (Auto) 71.1 Lymph % (Auto) 16.7 [place] % (Auto) 8.8 Eos % (Auto) 2.6 Baso % (Auto) 0.3 Neut # (Auto) 5.23 Lymph # (Auto) 1.23 [place] # (Auto) 0.65 H Eos # (Auto) 0.19 Baso # (Auto) 0.02 Immature Gran # (Auto) 0.04 Heparin Anti-Xa, Unfract 0.65 Sodium 138 Potassium 3.7 Chloride 105 Carbon Dioxide 24 Anion Gap 9 BUN 7 Creatinine 0.73 Est Cr Clr Drug Dosing 48.1 Est GFR ( Amer) 88.9 Est GFR (Non-Af Amer) 76.7 BUN/Creatinine Ratio 9.6 L Glucose 103 H Calcium 8.7 Phosphorus 2.4 L Magnesium 1.9 ECG Additional Comments: EKG 12/09/2023 Normal sinus rhythm at 62 bpm with left bundle branch block configuration QT 491 (4) Leukocytosis Leukocytosis type: unspecified Qualified Code(s): D72.829 - Elevated white blood cell count, unspecified
--- NOTE | 2023-12-09 13:03 | Billing Data ---
Date of Service December 09, 2023 Coding Level of Care Code 80733 IN/OBS DISCH 30 MIN/LESS
--- NOTE | 2023-12-10 23:27 | Electrocardiogram Report ---
Test Reason : Blood Pressure : / mmHG Vent. Rate : 062 BPM Atrial Rate : 062 BPM P-R Int : 172 ms QRS Dur : 128 ms QT Int : 484 ms P-R-T Axes : 073 -15 117 degrees QTc Int : 491 ms Normal sinus rhythm Left bundle branch block Abnormal ECG When compared with ECG of 07-DEC-2023 09:32, Premature atrial complexes are no longer Present Confirmed by Rosendo Park ([id number]) on 12/10/2023 11:27:12 PM Referred By: REFERRED SELF Confirmed By:Rosendo Park
[2023-12-12] MEDS ORDERED: metHOTREXate sodium 2.5 MG TAB PO SCH (09:00)
== END 2023-12-09 16:00 | disposition home or self-care (01) | DRG 871 ==
LOC: EDINP 11:04 → ED 11:04 → SUATTDRO 13:51 → OBSVTOIN 13:51 → 2N 14:00 → 2S 12-07 03:39

== ENCOUNTER 2024-04-23 15:17 | Inpatient (IN) ==
--- OUTSIDE RECORDS SUMMARY | 2024-04-23 15:22 | External Medical Summary | Summary of Care ---
Author Name Unknown Organization [facility] Address [address] [facility] [place] [address] Phone [phone] Care Team Providers Care Corporate Vp Advertising & Online Name Role Phone Aaron Wolf MD Primary Care Provider [phone] Reason for Visit * Reason Comments Pulmonary Function Test PFT with broncho dilator Encounter Details Date Type Department Care Team (Latest Contact Info) Description 04/06/2024 1:00 PM EDT PulmDiagnostic Pulmonary Function Lab, [facility] [address] [facility] [place] [address] [place], [address] [place] [address] PAF (paroxysmal atrial fibrillation) ([facility])*; Hypertrophic obstructive cardiomyopathy (HOCM) ([facility]); Left ventricular outflow tract obstruction; Cardiac outflow obstruction; LBBB (left bundle branch block); Dyslipidemia, goal LDL below 70 Allergies Active Allergy Reactions Criticality Noted Date Comments Triprolidine-Pseudoephedrin e 05/22/2015 Anefrin Nasal [place] 08/12/2018 Amoxicillin 04/04/2004 Antipyrine 03/09/2006 Rash and blisters Amoxicillin-Pot Clavulanate 03/09/20 14 Bee Stings High 12/06/2023 Other Reaction(s): BEE/WASP-NAUSEA AND DIZZINESS Benzocaine Other (Please comment) 03/08/2018 Headache Citalopram Hydrobromide Other (Please comment) 09/18/2014 Tremors Citalopram 01/08/2003 Clarithromycin 12/08/2001 gi upset Clavulanic Acid Low 05/18/2020 Other reaction(s): Unknown Misoprostol 03/09/2014 Magnesium Citrate Low 05/18/2020 Other reaction(s): projectile vomitting Esomeprazole 12/01/2005 Hydroxychloroquine Sulfate 5 Denosumab High 02/13/2019 Pseudoephedrine Sulfa Antibiotics 10/18/2000 ? rash Sympathomimetics documented as of this encounter (statuses as of 04/06/2024) Medications Medication Sig Dispensed Refills Start Date [...] 1000 UNIT PO TABS one tablet daily Active CALCIUM + D 600-200 MG-UNIT PO TABS one tablet 1 times per day Active CETIRIZINE HCL 10 MG PO TABS one daily Active Melatonin 3 MG Oral Capsule Take 3 Capsules by mouth at bedtime. Active PROTONIX 40 MG PO TBEC 1 tab once daily Active CIPRODEX 0.3-0.1 % OT SUSP Administer into ears . Active LORAzepam (ATIVAN) 0.5 MG TabletIndications:Anx iety state Take 1 Tablet by mouth at bedtime. 180 Tab 0 02/20/2015 Active Folic Acid 800 MCG Tablet 2mg by mouth once daily 05/21/2016 Active Methylcellulose (Laxative) Oral Powder Take by mouth daily. Active Ondansetron 4 MG Oral Tablet Disintegrating Place 1 Tablet on tongue every 8 hours as needed for Nausea. dissolve on tongue. Active traMADol (ULTRAM) 50 MG Tablet Take 1 Tablet by mouth every 6 hours as needed for Pain. Active Calcium Carbonate Antacid 500 MG Oral Tablet Chewable Take 1 Tablet by mouth in the morning. Active Magnesium Hydroxide 400 MG/5ML Oral Suspension Take by mouth daily as needed for Constipation. Active Soothe XP Ophthalmic Solution Instill into eye 2 times a day. Instill one drop in each eye twice per day Active NATURAL SUPPLEMENT Take by mouth daily . Takes Lactaid as needed Active predniSONE 5 MG Oral Tablet (Deltasone) Take 1.5 Tablets by mouth in the morning. 135 Tablet 1 11/30/2023 Active Atorvastatin Calcium 10 MG Oral Tablet (Lipitor)Indications: Dyslipidemia, goal LDL below 160 Take 1 Tablet by mouth in the morning. In the morning.. 90 Tablet 1 11/30/2023 Active Metoprolol Succinate ER 25 MG Oral Tablet Extended Release 24 Hour (toPROL XL)Indications:LBBB (left bundle branch block),Left ventricular outflow tract obstruction,Cardiac outflow obstruction Take 1 Tablet by mouth in the morning and 1 Tablet before bedtime. Take one tab in am and one tab in pm. 180 Tablet 3 12/17/2023 Active Amiodarone HCl 200 MG Oral Tablet (Cordarone)Indication s:Atrial fibrillation, unspecified type (HCC) Take 1 Tablet by mouth daily with breakfast. 90 Tablet 3 01/05/2024 Active Polyethylene Glycol 3350 17 GM Oral Packet (MiraLax) Take 1 Packet by mouth in the morning. Active Eliquis 2.5 MG Oral TabletIndications:Atr ial fibrillation, unspecified type (HCC) Take 1 Tablet by mouth in the morning and 1 Tablet before bedtime. 180 Tablet 3 02/24/2024 Active Methotrexate Sodium 2.5 MG Oral Tablet TAKE 9 TABLETS ONCE A WEEK 108 Tablet 1 03/03/2024 Active Hospital, Clinic, or Other Facility Administered Medication Ordered Dose Route Frequency Start Date End Date Status Albuterol Sulfate (Proventil) (2.5 MG/3ML) 0.083% inhalation solution 2.5 mgIndications:PAF (paroxysmal atrial fibrillation) (HCC) 2.5 mg NEBULIZER PRN 02/28/2024 Activ e Albuterol Sulfate (Proventil) (5 MG/ML) 0.5% *conc* inhalation solution 2.5 mgIndications:PAF (paroxysmal atrial fibrillation) (HCC) 2.5 mg NEBULIZER PRN 02/28/2024 Activ e documented as of this encounter (statuses as of 04/06/2024) Active Problems Problem Noted Date Diagnosed Date Rheumatoid arthritis of [facility] sites without rheumatoid factor 09/01/2021 Encounter [...] as of this encounter (statuses as of 04/06/2024) Resolved Problems Problem Noted Date Diagnosed Date Resolved Date PURE HYPERCHOLESTEROLEM 01/13/200507/02 Overview: Per Lipid Taxonomy. 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 factor 09/01/19 22 Mitral valve prolapse 2011 documented as of this encounter (statuses as of 04/06/2024) Immunizations Name Administration Dates Next Due COVID-19 mRNA, LNP-s, No Pre serve, 2-Dose Series (Moderna) 04/28/2021,10/22/2020,09/24/2020 COVID-19, MRNA-LNP, 23-24, P F, 30 MCG/0.3 mL, 12 YRS AND ABOVE, IM ([facility]) 05/13/2023 COVID-19, mRNA, LNP-s, PF, B [...] Vac cine, Unspecified Formulation 05/19/2016,05/26/2005,05/23/2004,2000,06/29/2000 Seasonal Influenza, High Dos e, Trivalent, PF, IM (Fluzone HD) 05/10/2020 Seasonal Influenza, Quadriva lent Hd, 65+ Yrs 05/13/2023,06/02/2022,05/10/2021,2019 Seasonal Influenza, Quadriva lent, No Preserve, IM 05/08/2015 Seasonal Influenza, Trivalen t, (IIV3), with Preserv, (Fluzone) 05/19/2016 Seasonal Influenza, Trivalen t, Adjuvanted, 65+ YRS, PF, (Fluad) 05/11/2019 TD - Tetanus/Diptheria (ADULT) 12/09/2005 TDAP, Age 7 and older, IM (Adacel) 09/19/2015 documented as of this encounter Social History Tobacco Use Types Packs/Day Years Used Date Smoking Tobacco: Never Smokeless Tobacco: Never Tobacco Cessation:Counseling Given: Not Answered Comments:passive smoke at home as a child Alcohol Use Standard Drinks/Week Comments No 0 (1 standard drink = 0.6 oz pur e alcohol) Utilities Answer Date Recorded Do you have trouble paying y our heating, water, or electric bill? (Adult - for ages 18 years and over) Not on file 01/18/2024 Is your family able to pay t he heat, water, or electric bill? (Household - for ages 0-17 years) Not on file 01/18/2024 Does your family have access to good internet? (Household - for ages 0-17 years) Not on file 01/18/2024 Social Connections Answer Date Recorded How often do you feel lonely or isolated from those around you? (Adult - for ages 18 years and over) Not on file 01/18/2024 Sex and Gender Information Value Date Recorded Sex Assigned at Not on file Gender Identity Not on file Sexual Orientation Not on file Job Start Date Occupation Industry Not on file Not on file Not on file documented as of this encounter Last Filed Vital Signs Vital Sign Reading Time Taken Comments Blood Pressure - - Pulse - - Temperature - - Respiratory Rate - - Oxygen Saturation - - Inhaled Oxygen Concentration - - Weight 49.7 kg (109 lb 9.1 oz) 04/06/2024 12:49 PM EDT Height 153 cm (5' 0.24") 04/06/2024 12:49 PM EDT Body Mass Index 21.23 04/06/2024 12:49 PM EDT documented in this encounter Nursing Notes * Adan Montes RRT - 04/06/2024 12:52 PM EDT Vane Carlton was identified by name, Date of : (1940), and . Vitals were obtained for testing. Body mass index is 21.23 kg/m. Pt does not have a smoking history. 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 Pt is on AMIODARONE. Spirometry, DLCO, RAW, and TGV performed. A slow volume nebulizer treatment of 0.5ml of albuterol in 3 ml of NSS was given. The proper method of use, as well as anticipated side effects, of this svn are discussed and demonstrated to the patient. Patient demonstrates adequate delivery. Administrations This Visit Albuterol Sulfate (Proventil) (2.5 MG/3ML) 0.083% inhalation solution 2.5 mg Admin Date 04/06/2024 Action Given Dose 2.5 mg Route Nebulizer Documented By Adan Montes RRT documented in this encounter Plan of Treatment Upcoming Encounters Date Type Department Care Team (Late st Contact Info) Description 04/26/2024 11:00 AM EDT Office Visit Rheumatology [facility] [address] [place], [place] [address] Bethel Jones MD [address] [place] [address] 06/27/2024 11:00 AM EST Office Visit Cardiology, [facility] [address] [facility] [place] [address] Devon Juarez MD [address] [facility] [place] [address] Health Maintenance Due Date Last Done Comments Depression Screening 1952 Zoster Vaccines (1 of 2) 1959 DXA Scan 05/07/2011 05/07/2009, 12/2008, 02/11/2006, Additional history exists *BISPHONATE OR OTHER ACCEPTABLE MEDICATION NEEDED FOR OSTEOPOROSIS (REFER TO SMARTSET #1146) 08/03/2014 Colonoscopy 02/19/2015 02/19/2010, 01/29/2005 Pneumococcal Vaccine: 65+ Years (3 of 3 - PPSV23 or PCV20) 07/02/2016 05/07/2016, 05/17/2001 COVID-19 Vaccine (2022-24 season) 2024 05/13/2023, 06/02/2022, 01/13/2022, Additional history exists Influenza Vaccine (FLU shot) (#1) 2024 05/13/2023, 05/13/2023, 06/02/2022, Additional history exists DTap/Tdap Vaccines (2 - Td or Tdap) 09/19/2025 09/19/2015, 12/09/2005 RETIRED - COLONOSCOPY-EVERY 5 YRS AGES 18-100 Discontinued 02/19/2010, 02/19/2010, 07/05/2006 (Done elsewhere), Additional history exists VITAMIN D LEVEL ONCE IN A LIFETIME-USE SMARTSET# 60607 Completed 01/01/2022 HPV (Gardasil) Vaccine Aged Out No lo nger eligible based on patient's age to complete this topic Hepatitis B Vaccine Aged Out No longe r eligible based on patient's age to complete this topic MENINGOCOCCAL (MENACTRA/MENVEO) Aged Out No longer eligible based on patient's age to complete this topic documented as of this encounter Medical Devices Implanted Type Area Web Content Executive Device Identifier Shelf Expiration Date Model / Serial / Lot Lens Intraoc 23.5 - [id number] - [id number] Implanted:Qty: 1 on 03/08/2018 by Pop Gutierrez MD at OR [facility] Left: Eye [employer]CH [employer] LOMB 09/01/2022 [id number] / [id number] / [id number] Lens Intraoc 21.5 - [id number] - [id number] Implanted:Qty: 1 on 03/22/2018 by Pop Gutierrez MD at OR [facility] Right: Eye BAUSCH & LOMB 10/30/2022 [id number] / [id number] / [id number] documented as of this encounter Visit Diagnoses Diagnosis PAF (paroxysmal atrial fibrillation) (HCC)- Primary Atrial fibrillation Hypertrophic obstructive cardiomyopathy (HOCM) (HCC) Hypertrophic obstructive cardiomyopathy 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 Cardiac outflow obstruction Other ill-defined heart disease LBBB (left bundle branch block) Other left bundle branch block Dyslipidemia, goal LDL below 70 Other and unspecified hyperlipidemia documented in this encounter Administered Medications Active Administered Medications - up to 3 most recent administrations Medication Order MAR Action Action Date Dose Rate Site Albuterol Sulfate (Proventil) (2.5 MG/3ML) 0.083% inhalation solution 2.5 mg 2.5 mg, Nebulizer, PRN Other, Starting on Wed02/28/24 at 1424, Until Discontinued, Only one type of albuterol product should be administered (Nebulizer or Inhaler). Please select and document on the appropriate albuterol product order. 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 * Full Code Date Activated Date Inactivated Comments 03/08/2018 7:53 AM 03/08/2018 2:47 PM This order ref lects the patients wishes and were consensually agreed upon. Care Teams Corporate Vp Advertising & Online Relationship Specialty Start Date End Date Aaron Wolf MD [address] [place] [address] PCP - General Critical Care Medicine 02/26/20 documented as of this encounter
--- OUTSIDE RECORDS SUMMARY | 2024-04-23 15:23 | External Medical Summary | Summary of Care ---
Author Name Unknown Organization [facility] Address [address] [facility] [place] [address] Phone [phone] Care Team Providers Care Trade Facilitator Name Role Phone Aaron Wolf MD Primary Care Provider [phone] Encounter Details Date Type Department Care Team (Late st Contact Info) Description 02/28/2024 Orders Only Cardiology, [facility] [address] [place] [address] GerardoLouisa garcia CRNP [address] [place] [address] PAF (paroxysmal atrial fibrillation) ([facility])* Allergies Active Allergy Reactions Criticality Noted Date Comments Triprolidine-Pseudoephedrin e 05/22/2015 Anefrin Nasal [place] 08/12/2018 Amoxicillin 04/04/2004 Antipyrine 03/09/2006 Rash and [...] as of this encounter (statuses as of 02/28/2024) Medications Medication Sig Dispensed Refills Start Date [...] daily . Takes Lactaid as needed Active Methotrexate Sodium 2.5 MG Oral Tablet Take 9 Tablets by mouth once a week. 108 Tablet 11/30/2023 Active predniSONE 5 MG Oral Tablet [...] before bedtime. 180 Tablet 3 02/24/2024 Active Hospital, Clinic, or Other Facility Administered [...] as of this encounter (statuses as of 02/28/2024) Active Problems Problem Noted Date Diagnosed Date Rheumatoid arthritis of [facility] sites without rheumatoid factor 09/01/2021 Encounter [...] as of this encounter (statuses as of 02/28/2024) Resolved Problems Problem Noted Date Diagnosed Date Resolved Date PURE HYPERCHOLESTEROLEM 01/13/200507/02 Overview: Per Lipid Taxonomy. 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 factor 09/01/19 22 Mitral valve prolapse 2011 documented as of this encounter (statuses as of 02/28/2024) Immunizations Name Administration Dates Next Due COVID-19 mRNA, LNP-s, No Pre serve, 2-Dose Series (Moderna) 04/28/2021,10/22/2020,09/24/2020 COVID-19, MRNA-LNP, 23-24, P F, 30 MCG/0.3 mL, 12 YRS AND ABOVE, IM ([facility]) 05/13/2023 COVID-19, mRNA, LNP-s, PF, B ooster, [...] IM 05/10/2020 TD - Tetanus/Diptheria (ADULT) 12/09/2005 TDAP, Age 7 and older, IM (Adacel) 09/19/2015 documented as of this encounter Social History Tobacco Use Types Packs/Day Years Used Date Smoking Tobacco: Never Smokeless Tobacco: Never Comments:pass[place] smoke [place] a [place] Alcohol Use Standard Drinks/Week [...] on file documented as of this encounter Plan of Treatment Upcoming Encounters Date Type Department Care Team (Late st Contact Info) Description 03/27/2024 10:15 AM EDT Cardiac Studies Cardiac Studies, [facility] [address] [facility] [place] [address] 04/06/2024 1:00 PM EDT PulmDiagnostic Pulmonary Function Lab, [facility] [address] [place] [address] [place], [address] [place] [address] 04/25/2024 11:00 AM EDT Office Visit Rheumatology [facility] [address] [place] [address] Bethel Jones MD [address] [facility] [place], [place] [address] 06/27/2024 11:00 AM EST Office Visit Cardiology, [facility] [address] [place] [address] Devon Juarez MD [address] [place] [address] Health Maintenance Due Date Last Done Comments Depression Screening 1952 Zoster Vaccines (1 of 2) 1960 DXA Scan 05/07/2011 05/07/2009, 12/2008, 02/11/2006, Additional history exists *BISPHONATE OR OTHER ACCEPTABLE MEDICATION NEEDED FOR OSTEOPOROSIS (REFER TO SMARTSET #1146) 08/03/2014 Colonoscopy 02/19/2015 02/19/2010, 01/29/2005 Pneumococcal Vaccine: 65+ Years (3 of 3 - PPSV23 or PCV20) 07/02/2016 05/07/2016, 05/17/2001 COVID-19 Vaccine (2022- season) 2023 05/13/2023, 06/02/2022, 01/13/2022, Additional history exists Influenza Vaccine (FLU shot) (#1) 2024 05/13/2023, 05/13/2023, 06/02/2022, Additional history exists DTaP,Tdap,and Td Vaccines (2 - Td or Tdap) 09/19/2025 09/19/2015, 12/09/2005 RETIRED - COLONOSCOPY-EVERY 5 YRS AGES 18-100 Discontinued 02/19/2010, 02/19/2010, 07/05/2006 (Done elsewhere), Additional history exists VITAMIN D LEVEL ONCE IN A LIFETIME-USE SMARTSET# 90292 Completed 01/01/2022 HPV (Gardasil) Vaccine Aged Out No lo nger eligible based on patient's age to complete this topic Hepatitis B Vaccine Aged Out No longe r eligible based on patient's age to complete this topic MENINGOCOCCAL (MENACTRA/MENVEO) Aged Out No longer eligible based on patient's age to complete this topic documented as of this encounter Medical Devices Implanted Type Area Skin Washer Device Identifier Shelf Expiration Date Model / Serial / Lot Lens Intraoc 23.5 - [id number] - [id number] Implanted:Qty: 1 on 03/08/2018 by Pop Gutierrez MD at OR [facility] Left: Eye BAUSCH [employer] LOMB 09/01/2022 [id number] / [id number] / [id number] Lens Intraoc 21.5 - [id number] - [id number] Implanted:Qty: 1 on 03/22/2018 by Pop Gutierrez MD at OR [facility] Right: Eye BAUSCH & LOMB 10/30/2022 [id number] / [id number] / [id number] documented as of this encounter Visit Diagnoses Diagnosis PAF (paroxysmal atrial fibrillation) (HCC)- Primary Atrial fibrillation documented in this encounter Advance Directives Documents on File Type Date 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 * Full Code Date Activated Date Inactivated Comments 03/08/2018 7:53 AM 03/08/2018 2:47 PM This order ref lects the patients wishes and were consensually agreed upon. Care Teams Trade Facilitator Relationship Specialty Start Date End Date Aaron Wolf MD [address] [place] [address] PCP - General Critical Care Medicine 02/26/20 documented as of this encounter
--- OUTSIDE RECORDS SUMMARY | 2024-04-23 15:23 | External Medical Summary | Summary of Care ---
Author Name Unknown Organization [facility] Address [address] [facility] [place] [address] Phone [phone] Care Team Providers Care Turn Machine Operator Name Role Phone Aaron Wolf MD Primary Care Provider [phone] [phone] Reason for Visit * Reason Onset Date Comments Test Results 03/01/2024 Encounter Details Date Type Department Care Team (Late st Contact Info) Description 03/01/2024 Telephone Cardiology, [facility] [address] [place] [address] GerardoLouisa garcia CRNP [address] [place] [address] Test Results Allergies Active Allergy Reactions Criticality Noted Date Comments Triprolidine-Pseudoephedrin e 05/22/2015 Anefrin Nasal [place] 08/12/2018 Amoxicillin 04/04/2004 Antipyrine 03/09/2006 Rash and [...] as of this encounter (statuses as of 03/01/2024) Medications Medication Sig Dispensed Refills Start Date [...] as of this encounter (statuses as of 03/01/2024) Active Problems Problem Noted Date Diagnosed Date Rheumatoid arthritis of [facility] sites without rheumatoid factor 09/01/2021 Encounter [...] as of this encounter (statuses as of 03/01/2024) Resolved Problems Problem Noted Date Diagnosed Date Resolved Date PURE HYPERCHOLESTEROLEM 01/13/200507/02 Overview: Per Lipid Taxonomy. 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 factor 09/01/19 22 Mitral valve prolapse 2011 documented as of this encounter (statuses as of 03/01/2024) Immunizations Name Administration Dates Next Due COVID-19 mRNA, LNP-s, No Pre serve, 2-Dose Series (Moderna) 04/28/2021,10/22/2020,09/24/2020 COVID-19, MRNA-LNP, 23-24, P F, 30 MCG/0.3 mL, 12 YRS AND ABOVE, IM ([facility]) 05/13/2023 COVID-19, mRNA, LNP-s, PF, B ooster, [...] Smokeless Tobacco: Never Comments:passive smoke at [facility] as a child Alcohol Use Standard Drinks/Week [...] encounter Miscellaneous Notes * Telephone Encounter - Diana Fox CMA - 03/01/2024 10:05 AM EDT My g sent * Telephone Encounter - Diana Fox CMA - 03/01/2024 10:04 AM EDT ----- Message from Louisa Carrillo sent at 02/28/2024 6:50 AM EDT ----- Chest x-ray is stable. No acute changes. No pleural effusions. documented in this encounter Plan of Treatment Upcoming Encounters Date Type Department Care Team (Late st Contact Info) Description 03/27/2024 10:15 AM EDT Cardiac Studies Cardiac Studies, [facility] [address] [facility] [place] [address] 04/06/2024 1:00 PM EDT PulmDiagnostic Pulmonary Function Lab, [facility] [place] [address] [address], [address] [facility] [place] [address] 04/25/2024 11:00 AM EDT Office Visit Rheumatology [address] [place] [address] Bethel Jones MD [address] [place] [address] [place] [address] 06/27/2024 11:00 AM EST Office Visit Cardiology, [facility] [address] [facility] [place] [address] Devon Juarez MD [address] [facility] [place] [address] Health Maintenance Due Date Last Done Comments Depression Screening 1952 Zoster Vaccines (1 of 2) 1960 DXA Scan 05/07/2011 05/07/2009, 12/2008, 02/11/2006, Additional history exists *BISPHONATE OR OTHER ACCEPTABLE MEDICATION NEEDED FOR OSTEOPOROSIS (REFER TO SMARTSET #1146) 08/03/2014 Colonoscopy 02/19/2015 02/19/2010, 01/29/2005 Pneumococcal Vaccine: 65+ Years (3 of 3 - PPSV23 or PCV20) 07/02/2016 05/07/2016, 05/17/2001 COVID-19 Vaccine (7 - 2023-24 season) 2023 05/13/2023, 06/02/2022, 01/13/2022, Additional history exists Influenza Vaccine (FLU shot) (#1) 2024 05/13/2023, 05/13/2023, 06/02/2022, Additional history exists DTaP,Tdap,and Td Vaccines (2 - Td or Tdap) 09/19/2025 09/19/2015, 12/09/2005 RETIRED - COLONOSCOPY-EVERY 5 YRS AGES 18-100 Discontinued 02/19/2010, 02/19/2010, 07/05/2006 (Done elsewhere), Additional history exists VITAMIN D LEVEL ONCE IN A LIFETIME-USE SMARTSET# 15063 Completed 01/01/2022 HPV (Gardasil) Vaccine Aged Out No lo nger eligible based on patient's age to complete this topic Hepatitis B Vaccine Aged Out No longe r eligible based on patient's age to complete this topic MENINGOCOCCAL (MENACTRA/MENVEO) Aged Out No longer eligible based on patient's age to complete this topic documented as of this encounter Medical Devices Implanted Type Area Hogshead Inspector Device Identifier Shelf Expiration Date Model / Serial / Lot Lens Intraoc 23.5 - [id number] - [id number] Implanted:Qty: 1 on 03/08/2018 by Pop Gutierrez MD at OR [facility] Left: Eye BAUSCH & LOMB 09/01/2022 [id number] / [id number] / [id number] Lens Intraoc 21.5 - [id number] - [id number] Implanted:Qty: 1 on 03/22/2018 by Pop Gutierrez MD at OR [facility] Right: Eye BAUSCH & LOMB 10/30/2022 [id number] / [id number] / [id number] documented as of this encounter Advance Directives Documents on File Type Date Recorded 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 * Full Code Date Activated Date Inactivated Comments 03/08/2018 7:53 AM 03/08/2018 2:47 PM This order ref lects the patients wishes and were consensually agreed upon. Care Teams Turn Machine Operator Relationship Specialty Start Date End Date Aaron Wolf MD [address] [place] [address] PCP - General Critical Care Medicine 02/26/20 documented as of this encounter
--- OUTSIDE RECORDS SUMMARY | 2024-04-23 15:23 | External Medical Summary | Summary of Care ---
Author Name Unknown Organization [facility] Address [address] [facility] [place] [address] Phone [phone] Care Team Providers Care Packaging Line Attendant Name Role Phone Aaron Wolf MD Primary Care Provider [phone] [phone] Reason for Visit * Reason Onset Date Comments Med Request 01/05/2024 Encounter Details Date Type Department Care Team (Late st Contact Info) Description 01/05/2024 Telephone Cardiology, [facility] [address] [place] [address] Rony Espinal, [address] [place] [address] Med Request Allergies Active Allergy Reactions Criticality Noted Date Comments Triprolidine-Pseudoephedrin e 05/22/2015 Anefrin Nasal [place] 08/12/2018 Amoxicillin 04/04/2004 Antipyrine 03/09/2006 Rash and [...] as of this encounter (statuses as of 01/05/2024) Medications Medication Sig Dispensed Refills Start Date [...] ears . Active LORAzepam (ATIVAN) 0.5 MG TabletIndications:A nxiety state Take 1 Tablet by mouth at bedtime. 180 Tab 0 02/20/2015 Active Folic Acid 800 MCG Tablet 2mg by mouth once daily 05/21/2016 Active docusate sodium (COLACE) 50 MG Capsule Take by mouth 2 times a day. Active Senna 30 MG MISC Take 2 Tabs by mouth. Active Methylcellulose (Laxative) Oral Powder Take by [...] in pm. 180 Tablet 3 12/17/2023 Active Eliquis 2.5 MG Oral Tablet Take 1 Tablet by mouth in the morning and 1 Tablet before bedtime. 12/09/2023 Active Amiodarone HCl 200 MG Oral Tablet (Cordarone) Take 1 Tablet by mouth daily with breakfast. 90 Tablet 3 01/05/2024 Active Apixaban 5 MG Oral Tablet (Eliquis) Take 1 Tablet by mouth in the morning and 1 Tablet before bedtime. 90 Tablet 3 12/17/2023 4 Discontinue d(Medicatio n/Dose Changed) Amiodarone HCl 200 MG Oral Tablet (Cordarone) Take 1 Tablet by mouth daily with breakfast. 12/09/2023 4 Discontinue d(Refill) documented as of this encounter (statuses as of 01/05/2024) Active Problems Problem Noted Date Diagnosed Date Rheumatoid arthritis of [facility] sites without rheumatoid factor 09/01/2021 [...] as of this encounter (statuses as of 01/05/2024) Resolved Problems Problem Noted Date Diagnosed Date Resolved Date PURE HYPERCHOLESTEROLEM 01/13/200507/02 Overview: Per Lipid Taxonomy. 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 factor 09/01/19 22 Mitral valve prolapse 2011 documented as of this encounter (statuses as of 01/05/2024) Immunizations Name Administration Dates Next Due COVID-19 mRNA, LNP-s, No Pre serve, 2-Dose Series (Moderna) 04/28/2021,10/22/2020,09/24/2020 COVID-19, MRNA-LNP, 23-24, P F, 30 MCG/0.3 mL, 12 YRS AND ABOVE, IM (PFIZER-Comirnaty) 05/13/2023 COVID-19, mRNA, LNP-s, PF, B ooster, 100mcg/0.5mg (Moderna) 01/13/2022 Covid-19, Mrna, Lnp-s, Pf, B ivalent, 30 Mcg, IM, 12 yrs and above ([employer] 06/02/2022 Pneumococcal Conjugate Vacc, 13 Valent (Prevnar) [...] Never Smokeless Tobacco: Never Comments:passive smoke at [facility] as a child Alcohol Use Standard Drinks/Week [...] encounter Miscellaneous Notes * Telephone Encounter - Violeta Bains RN - 01/05/2024 4:10 PM EDT Images from the original note were not included. Chart reviewed, appears patient admitted to [facility] 12/06/23 with following changes noted on d/c summary: * Telephone Encounter - Kaylie Almonte OSA - 01/05/2024 1:52 PM EDT Person calling: patient Relationship to patient: patient Number to return call: [phone] Reason for call(brief): amiodarone refill Pharmacy: [facility] Provider Name: Kylie Detailed message to office: out of amiodarone, just got a hold over dose of 14 days. Please expedite. documented in this encounter Plan of Treatment Upcoming Encounters Date Type Department Care Team (Late st Contact Info) Description 02/24/2024 10:00 AM EDT Office Visit Cardiology, [facility] [address] [facility] [place] [address] Louisa Carrillo CRNP [address] [place] [address] 04/25/2024 11:00 AM EDT Office Visit Rheumatology [facility] [address] [facility] [place], [place] [address] Bethel Jones MD [address] [employer] [place] [address] Health Maintenance Due Date Last Done Comments [...] 2023 05/13/2023, 06/02/2022, 01/13/2022, Additional history exists DTaP,Tdap,and Td Vaccines (2 - Td or Tdap) 09/19/2025 09/19/2015, 12/09/2005 RETIRED - COLONOSCOPY-EVERY 5 YRS AGES 18-100 Discontinued 02/19/2010, 02/19/2010, 07/05/2006 (Done elsewhere), Additional history exists VITAMIN D LEVEL ONCE IN A LIFETIME-USE SMARTSET# 63562 Completed 01/01/2022 Influenza Vaccine (FLU shot) Completed 05/13/2023, 05/13/2023, [...] this encounter Medical Devices Implanted Type Area Printing Gray Cloth Tender Device Identifier Shelf Expiration Date Model / Serial / Lot Lens Intraoc 23.5 - [id number] - [id number] Implanted:Qty: 1 on 03/08/2018 by Pop Gutierrez MD at OR [facility] Left: Eye BAUSCH & LOMB 09/01/2022 [id number] / [id number] / [id number] Lens Intraoc 21.5 - [id number] - [id number] Implanted:Qty: 1 on 03/22/2018 by Pop Gutierrez MD at OR [facility] Right: Eye BAUSCH & LOMB 10/30/2022 [id number] / [id number] / [id number] documented as of this encounter Advance Directives Documents on File Type Date Recorded Patient Programming Manager Expl anation Advance Directives and Living Will 11/14/2003 Power of Reinforcing Iron Worker Helper 11/14/2003 * Full Code (Latest Code Status on File) Date Activated Date Inactivated Comments 03/22/2018 6:30 AM 03/22/2018 1:21 PM This order r eflects the patients wishes and were consensually agreed upon. * Full Code Date Activated Date Inactivated Comments 03/08/2018 7:53 AM 03/08/2018 2:47 PM This order ref lects the patients wishes and were consensually agreed upon. Care Teams Packaging Line Attendant Relationship Specialty Start Date End Date Aaron Wolf MD [address] [place] [address] PCP - General Critical Care Medicine 02/26/20 documented as of this encounter
--- OUTSIDE RECORDS SUMMARY | 2024-04-23 15:23 | External Medical Summary | Summary of Care ---
Author Name Unknown Organization [facility] Address [address] [facility] [place] [address] Phone [phone] Care Team Providers Care Sales Expert Home Theater Name Role Phone Aaron Wolf MD Primary Care Provider [phone] Reason for Visit * Reason Comments Cardiology Study Pt here for an EKG t est Encounter Details Date Type Department Care Team (Late st Contact Info) Description 03/27/2024 10:00 AM EDT Nurse Only Ancillary Department, [address] [address] [place], Nurse [address] [place] [address] Cardiology Study (Pt here for an EKG test) Allergies Active Allergy Reactions Criticality Noted Date Comments Triprolidine-Pseudoephedrin e 05/22/2015 Anefrin Nasal [place] 08/12/2018 Amoxicillin 04/04/2004 Antipyrine 03/09/2006 Rash and [...] as of this encounter (statuses as of 03/27/2024) Medications Medication Sig Dispensed Refills Start Date [...] as of this encounter (statuses as of 03/27/2024) Active Problems Problem Noted Date Diagnosed Date Rheumatoid arthritis of [facility] sites without rheumatoid factor 09/01/2021 [...] as of this encounter (statuses as of 03/27/2024) Resolved Problems Problem Noted Date Diagnosed Date Resolved Date PURE HYPERCHOLESTEROLEM 01/13/200507/02 Overview: Per Lipid Taxonomy. 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 factor 09/01/19 22 Mitral valve prolapse 2011 documented as of this encounter (statuses as of 03/27/2024) Immunizations Name Administration Dates Next Due COVID-19 mRNA, LNP-s, No Pre serve, 2-Dose Series (Moderna) 04/28/2021,10/22/2020,09/24/2020 COVID-19, MRNA-LNP, 23-24, P F, 30 MCG/0.3 mL, 12 YRS AND ABOVE, IM ([facility]) 05/13/2023 COVID-19, mRNA, LNP-s, PF, B ooster, [...] Never Smokeless Tobacco: Never Comments:passive smoke at [facility] as a child Alcohol Use Standard Drinks/Week [...] on file documented as of this encounter Progress Notes * Paige Portillo LPN - 03/27/2024 10:09 AM EDT Chief Complaint Patient presents with Cardiology Study Pt here for an EKG test ekg done as per 's order documented in this encounter Plan of Treatment Upcoming Encounters Date Type Department Care Team (Late st Contact Info) Description 04/06/2024 1:00 PM EDT PulmDiagnostic Pulmonary Function Lab, [facility] [place] [address] [place], [address] [facility] [place] [address] 04/26/2024 11:00 AM EDT Office Visit Rheumatology [place] [id number] [facility] [place] [address] Bethel Jones MD [address] [place] [address] [place] [address] 06/27/2024 11:00 AM EST Office Visit Cardiology, [facility] [address] [facility] [place] [address] Devon Juarez MD 132 [facility] [place] [address] Health Maintenance Due Date Last Done Comments [...] D LEVEL ONCE IN A LIFETIME-USE SMARTSET# 14092 Completed 01/01/2022 HPV (Gardasil) Vaccine Aged Out No lo nger eligible based on patient's age to complete this topic Hepatitis B Vaccine Aged Out No longe r eligible based on patient's age to complete this topic MENINGOCOCCAL (MENACTRA/MENVEO) Aged Out No longer eligible based on patient's age to complete this topic documented as of this encounter Medical Devices Implanted Type Area Forepart Laster Device Identifier Shelf Expiration Date Model / Serial / Lot Lens Intraoc 23.5 - [id number] - [id number] Implanted:Qty: 1 on 03/08/2018 by Pop Gutierrez MD at OR [facility] Left: Eye BAUSCH & LOMB 09/01/2022 [id number] / [id number] / [id number] Lens Intraoc 21.5 - [id number] - [id number] Implanted:Qty: 1 on 03/22/2018 by Pop Gutierrez MD at OR [facility] Right: Eye BAUSCH & LOMB 10/30/2022 [id number] / [id number] / [id number] documented as of this encounter Visit Diagnoses Diagnosis PAF (paroxysmal atrial fibrillation) (HCC)- Primary Atrial fibrillation Hypertrophic obstructive cardiomyopathy (HOCM) (HCC) Hypertrophic obstructive cardiomyopathy 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 Cardiac outflow obstruction Other ill-defined heart disease LBBB (left bundle branch block) Other left bundle branch block Dyslipidemia, goal LDL below 70 Other and unspecified hyperlipidemia Atrial fibrillation, unspecified type (HCC) documented in this encounter Advance Directives Documents on File Type Date Recorded Patient Full Stack Net Developer Expl anation Advance Directives and Living Will 11/14/2003 Power of Plumbing Designer 11/14/2003 * Full Code (Latest Code Status on File) Date Activated Date Inactivated Comments 03/22/2018 6:30 AM 03/22/2018 1:21 PM This order r eflects the patients wishes and were consensually agreed upon. * Full Code Date Activated Date Inactivated Comments 03/08/2018 7:53 AM 03/08/2018 2:47 PM This order ref lects the patients wishes and were consensually agreed upon. Care Teams Sales Expert Home Theater Relationship Specialty Start Date End Date Aaron Wolf MD [address] [place] [address] PCP - General Critical Care Medicine 02/26/20 documented as of this encounter
--- OUTSIDE RECORDS SUMMARY | 2024-04-23 15:23 | External Medical Summary | Summary of Care ---
Author Name Unknown Organization [facility] Address [address] [facility] [place] [address] Phone [phone] Care Team Providers Care Corn Sheller Name Role Phone Aaron Wolf MD Primary Care Provider [phone] Reason for Visit * Reason Onset Date Comments EKG 03/27/2024 Encounter Details Date Type Department Care Team (Late st Contact Info) Description 03/27/2024 Telephone Gastroenterology, [facility] [address] [place] [address] GerardoLouisa garcia CRNP [address] [place] [address] EKG Allergies Active Allergy Reactions Criticality Noted Date Comments Triprolidine-Pseudoephedrin e 05/22/2015 Anefrin Nasal [place] 08/12/2018 Amoxicillin 04/04/2004 Antipyrine 03/09/2006 Rash and [...] as of this encounter (statuses as of 03/30/2024) Medications Medication Sig Dispensed Refills Start Date [...] inhalation solution 2.5 mgIndications:PAF (paroxysmal atrial fibrillation) ([facility]) 2.5 mg NEBULIZER PRN 02/28/2024 Activ e Albuterol Sulfate (Proventil) (5 MG/ML) 0.5% *conc* inhalation solution 2.5 mgIndications:PAF (paroxysmal atrial fibrillation) ([facility]) 2.5 mg NEBULIZER PRN 02/28/2024 Activ e documented as of this encounter (statuses as of 03/30/2024) Active Problems Problem Noted Date Diagnosed Date Rheumatoid arthritis of [facility] sites without rheumatoid factor 09/01/2021 [...] as of this encounter (statuses as of 03/30/2024) Resolved Problems Problem Noted Date Diagnosed Date Resolved Date PURE HYPERCHOLESTEROLEM 01/13/200507/02 Overview: Per Lipid Taxonomy. 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 factor 09/01/19 22 Mitral valve prolapse 2011 documented as of this encounter (statuses as of 03/30/2024) Immunizations Name Administration Dates Next Due COVID-19 mRNA, LNP-s, No Pre serve, 2-Dose Series (Moderna) 04/28/2021,10/22/2020,09/24/2020 COVID-19, MRNA-LNP, 23-24, P F, 30 MCG/0.3 mL, 12 YRS AND ABOVE, IM (Ultimate Shopper-Comirnat) 05/13/2023 COVID-19, mRNA, LNP-s, PF, B ooster, [...] Vac cine, Unspecified Formulation 05/19/2016,05/26/2005,05/23/2004,05/02,06/29/2000 Seasonal Influenza, High Dos e, Trivalent, PF, IM (Fluzone HD) 05/10/2020 Seasonal Influenza, Quadriva lent Hd, 65+ Yrs 05/13/2023,06/02/2022,05/10/2021,04/2020 Seasonal Influenza, Quadriva lent, No Preserve, IM 05/08/2015 Seasonal Influenza, Trivalen t, (IIV3), with Preserv, (Fluzone) 05/19/2016,05/26/2005,05/23/2004,05/02,06/29/2000 07/06/2001 Seasonal Influenza, Trivalen t, Adjuvanted, 65+ YRS, PF, (Fluad) 05/11/2019 TD - Tetanus/Diptheria (ADULT) 12/09/2005 TDAP, Age 7 and older, IM (Adacel) 09/19/2015 documented as of this encounter Social History Tobacco Use Types Packs/Day Years Used Date Smoking Tobacco: Never Smokeless Tobacco: Never Comments:passive smoke at [facility] as a child Alcohol Use Standard [...] encounter Miscellaneous Notes * Telephone Encounter - Julio Barlow LPN - 03/30/2024 10:18 AM EDT Called patient and informed of Lorena's message. * Telephone Encounter - Lorena Salcedo CRNP - 03/30/2024 8:33 AM EDT EKG reviewed in coverage of [facility] NSR with Left BBB Qtc 503ms, most recent was 500ms Will need repeat EKG at time of next appt. * Telephone Encounter - Paige Portillo LPN - 03/27/2024 10:17 AM EDT Pt stopped in today and had their EKG done. It was transmitted and should be in the pt's chart. Thank you documented in this encounter Plan of Treatment Upcoming Encounters Date Type Department Care Team (Late st Contact Info) Description 04/06/2024 1:00 PM EDT PulmDiagnostic Pulmonary Function Lab, [facility] [address] [place] [address] [place], [address] [place] [address] 04/26/2024 11:00 AM EDT Office Visit Rheumatology [address] [place] [address] Bethel Jones MD [address] [place] [address] [place] [address] 06/27/2024 11:00 AM EST Office Visit Cardiology, [facility] [address] [place] [address] Devon Juarez MD [address] [place] [address] Health Maintenance Due Date Last Done Comments Depression Screening 1952 Zoster Vaccines (1 of 2) 1960 DXA Scan 05/07/2011 05/07/2009, 12/2008, 02/11/2006, Additional history exists *BISPHONATE OR OTHER ACCEPTABLE MEDICATION NEEDED FOR OSTEOPOROSIS (REFER TO SMARTSET #1146) 08/03/2014 Colonoscopy 02/19/2015 02/19/2010, 01/29/2005 Pneumococcal Vaccine: 65+ Years (3 of 3 - PPSV23 or PCV20) 07/02/2016 05/07/2016, 05/17/2001 COVID-19 Vaccine (2022-24 season) 2023 05/13/2023, 06/02/2022, 01/13/2022, Additional history exists Influenza Vaccine (FLU shot) (#1) 2024 05/13/2023, 05/13/2023, 06/02/2022, Additional history exists DTap/Tdap Vaccines (2 - Td or Tdap) 09/19/2025 09/19/2015, 12/09/2005 RETIRED - COLONOSCOPY-EVERY 5 YRS AGES 18-100 Discontinued 02/19/2010, 02/19/2010, 07/05/2006 (Done elsewhere), Additional history exists VITAMIN D LEVEL ONCE IN A LIFETIME-USE SMARTSET# 86934 Completed 01/01/2022 HPV (Gardasil) Vaccine Aged Out No lo nger eligible based on patient's age to complete this topic Hepatitis B Vaccine Aged Out No longe r eligible based on patient's age to complete this topic MENINGOCOCCAL (MENACTRA/MENVEO) Aged Out No longer eligible based on patient's age to complete this topic documented as of this encounter Medical Devices Implanted Type Area Music Video Producer Device Identifier Shelf Expiration Date Model / Serial / Lot Lens Intraoc 23.5 - [id number] - [id number] Implanted:Qty: 1 on 03/08/2018 by Pop Gutierrez MD at OR [facility] Left: Eye BAUSCH & LOMB 09/01/2022 [id number] / [id number] / [id number] Lens Intraoc 21.5 - [id number] - [id number] Implanted:Qty: 1 on 03/22/2018 by Pop Gutierrez MD at [facility] Right: Eye BAUSCH & LOMB 10/30/2022 [id number] / [id number] / [id number] documented as of this encounter Advance Directives Documents on File Type Date Recorded Patient Resident Medical Officer Expl anation Advance Directives and Living Will 11/14/2003 Power of Cement Side Laster 11/14/2003 * Full Code (Latest Code Status on File) Date Activated Date Inactivated Comments 03/22/2018 6:30 AM 03/22/2018 1:21 PM This order r eflects the patients wishes and were consensually agreed upon. * Full Code Date Activated Date Inactivated Comments 03/08/2018 7:53 AM 03/08/2018 2:47 PM This order ref lects the patients wishes and were consensually agreed upon. Care Teams Corn Sheller Relationship Specialty Start Date End Date Aaron Wolf MD [address] [place] [address] PCP - General Critical Care Medicine 02/26/20 documented as of this encounter
--- OUTSIDE RECORDS SUMMARY | 2024-04-23 15:23 | External Medical Summary | Summary of Care ---
Author Name Unknown Organization [facility] Address [address] [facility] [place] [address] Phone [phone] Care Team Providers Care Professor Of Exercise Science Name Role Phone Aaron Wolf MD Primary Care Provider [phone] Encounter Details Date Type Department Care Team (Late st Contact Info) Description 02/28/2024 Orders Only PATIENT PORTAL DO NOT DELETE THIS DEPT USED BY [place] PRUITT [id number] Allergies Active Allergy Reactions Criticality Noted Date Comments Triprolidine-Pseudoephedrin e 05/22/2015 Anefrin Nasal [place] 08/12/2018 Amoxicillin 04/04/2004 Antipyrine 03/09/2006 Rash and [...] before bedtime. 180 Tablet 3 02/24/2024 Active documented as of this encounter (statuses as of 02/28/2024) Active Problems Problem Noted Date Diagnosed Date Rheumatoid [facility] generale sites without rheumatoid factor 09/01/2021 Encounter for [...] Never Smokeless Tobacco: Never Comments:passive smoke at [facility] as a child Alcohol Use Standard [...] 10:15 AM EDT Cardiac Studies Cardiac Studies, [facility] [address] [place] [address] 04/06/2024 1:00 PM EDT PulmDiagnostic Pulmonary Function Lab, [facility] [address] [place] [address] [place], [address] [place] [address] 04/25/2024 11:00 AM EDT Office Visit Rheumatology [place] [address] [facility] [place] [address] Bethel Jones MD [address] [place] [address] [place] [address] 06/27/2024 11:00 AM EST Office Visit Cardiology, [facility] [address] [place] [address] Devon Juarez MD [address] [place] [address] Health Maintenance Due Date Last Done Comments [...] D LEVEL ONCE IN A LIFETIME-USE SMARTSET# 99239 Completed 01/01/2022 HPV (Gardasil) Vaccine Aged Out No lo nger eligible based on patient's age to complete this topic Hepatitis B Vaccine Aged Out No longe r eligible based on patient's age to complete this topic MENINGOCOCCAL (MENACTRA/MENVEO) Aged Out No longer eligible based on patient's age to complete this topic documented as of this encounter Medical Devices Implanted Type Area Trumpet Player Device Identifier Shelf Expiration Date Model / Serial / Lot Lens Intraoc 23.5 - [id number] - [id number] Implanted:Qty: 1 on 03/08/2018 by Pop Gutierrez MD at OR [facility] Left: Eye [employer] 09/01/2022 [id number] / [id number] / [id number] Lens Intraoc 21.5 - [id number] - [id number] Implanted:Qty: 1 on 03/22/2018 by BrendaPop styles MD at OR [facility] Right: Eye [employer] 10/30/2022 [id number] / [id number] / [id number] documented as of this encounter Advance Directives Documents on File Type Date Recorded Patient Investigation Division Sergeant Expl anation Advance Directives and Living Will 11/14/2003 Power of Solvent Process Extractor Operator 11/14/2003 * Full Code (Latest Code Status on File) Date Activated Date Inactivated Comments 03/22/2018 6:30 AM 03/22/2018 1:21 PM This order r eflects the patients wishes and were consensually agreed upon. * Full Code Date Activated Date Inactivated Comments 03/08/2018 7:53 AM 03/08/2018 2:47 PM This order ref lects the patients wishes and were consensually agreed upon. Care Teams Professor Of Exercise Science Relationship Specialty Start Date End Date Aaron Wolf MD [address] [place] [address] PCP - General Critical Care Medicine 02/26/20 documented as of this encounter
--- OUTSIDE RECORDS SUMMARY | 2024-04-23 15:23 | External Medical Summary | Summary of Care ---
Author Name Unknown Organization [facility] Address [address] [facility] [place] [address] Phone [phone] Care Team Providers Care Intake Rn Name Role Phone Aaron Wolf MD Primary Care Provider [phone] Reason for Visit * Reason Comments New Med Request Encounter Details Date Type Department Care Team (Late st Contact Info) Description 12/31/2023 Refill Cardiology, [facility] [address] [place] [address] GerardoLouisa garcia CRNP [address] [place] [address] Allergies Active Allergy Reactions Criticality Noted Date Comments Triprolidine-Pseudoephedrin e 05/22/2015 Anefrin Nasal [place] 08/12/2018 Amoxicillin 04/04/2004 Antipyrine 03/09/2006 Rash and [...] as of this encounter (statuses as of 12/31/2023) Medications Medication Sig Dispensed Refills Start Date [...] in pm. 180 Tablet 3 12/17/2023 Active Apixaban 5 MG Oral Tablet (Eliquis) Take 1 Tablet by mouth in the morning and 1 Tablet before bedtime. 90 Tablet 3 12/17/2023 Active documented as of this encounter (statuses as of 12/31/2023) Active Problems Problem Noted Date Diagnosed Date Rheumatoid arthritis of [facility] sites without rheumatoid factor 09/01/2021 Encounter for [...] as of this encounter (statuses as of 12/31/2023) Resolved Problems Problem Noted Date Diagnosed Date Resolved Date PURE HYPERCHOLESTEROLEM 01/13/200507/02 Overview: Per Lipid Taxonomy. 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 factor 09/01/19 22 Mitral valve prolapse 2011 documented as of this encounter (statuses as of 12/31/2023) Immunizations Name Administration Dates Next Due COVID-19 [...] Never Smokeless Tobacco: Never Comments:passive smoke at [facility] as a child Alcohol Use [...] Miscellaneous Notes * Telephone Encounter - Violeta Ann CMA - 12/31/2023 11:50 AM EDTRefused Prescriptions: Disp Refills Amiodarone HCl 200 MG Oral Tablet (Cordaro* 0 Refused By: VIOLETA ANN for Refusal: Refill Not Appropriate documented in this encounter Plan of Treatment Upcoming Encounters Date Type Department Care Team (Late st Contact Info) Description 02/24/2024 10:00 AM EDT Office Visit Cardiology, [facility] [address] [place] [address] Louisa Carrillo CRNP [address] [place] [address] 04/25/2024 11:00 AM EDT Office Visit Rheumatology [address] [place] [address] Bethel Jones MD [address] [place] [address] Health Maintenance Due Date Last Done Comments [...] D LEVEL ONCE IN A LIFETIME-USE SMARTSET# 46660 Completed 01/01/2022 Influenza Vaccine (FLU shot) Completed [...] this encounter Medical Devices Implanted Type Area Vertical Contour Band Saw Operator Device Identifier Shelf Expiration Date Model / Serial / Lot Lens Intraoc 23.5 - [id number] - [id number] Implanted:Qty: 1 on 03/08/2018 by Pop Gutierrez MD at OR [facility] Left: Eye [employer] 09/01/2022 [id number] / [id number] / [id number] Lens Intraoc 21.5 - [id number] - [id number] Implanted:Qty: 1 on 03/22/2018 by Pop Gutierrez MD at OR [facility] Right: Eye [employer] 10/30/2022 [id number] / [id number] / [id number] documented as of this encounter Advance Directives Documents on File Type Date Recorded Patient Public Records Researcher Expl anation Advance Directives and Living Will 11/14/2003 Power of Software Implementation Specialist 11/14/2003 * Full Code (Latest Code Status on File) Date Activated Date Inactivated Comments 03/22/2018 6:30 AM 03/22/2018 1:21 PM This order r eflects the patients wishes and were consensually agreed upon. * Full Code Date Activated Date Inactivated Comments 03/08/2018 7:53 AM 03/08/2018 2:47 PM This order ref lects the patients wishes and were consensually agreed upon. Care Teams Intake Rn Relationship Specialty Start Date End Date Aaron Wolf MD [address] [place] [address] PCP - General Critical Care Medicine 02/26/20 documented as of this encounter
--- OUTSIDE RECORDS SUMMARY | 2024-04-23 15:23 | External Medical Summary | Summary of Care ---
Author Name Unknown Organization [facility] Address [address] [facility] [place] [address] Phone [phone] Care Team Providers Care Rehabilitation Supervisor Name Role Phone Aaron Wolf MD Primary Care Provider [phone] Reason for Visit * Reason Comments Follow Up Encounter Details Date Type Department Care Team (Latest Contact Info) Description 02/24/2024 10:00 AM EDT Office Visit Cardiology, [facility] [address] [facility] [place] [address] Louisa Carrillo CRNP [address] [facility] [place] [address] PAF (paroxysmal atrial fibrillation) ([facility])*; Hypertrophic obstructive cardiomyopathy (HOCM) ([facility]); Left ventricular outflow tract obstruction; Cardiac outflow obstruction; LBBB (left bundle branch block); Dyslipidemia, goal LDL below 70; Atrial fibrillation, unspecified type ([facility]) Allergies Active Allergy Reactions Criticality Noted Date Comments Triprolidine-Pseudoephedrin e 05/22/2015 Anefrin Nasal [place] 08/12/2018 Amoxicillin 04/04/2004 Antipyrine 03/09/2006 Rash and [...] as of this encounter (statuses as of 02/24/2024) Medications Medication Sig Dispensed Refills Start Date End Date Status MULTIVITAMIN TABS OR daily 0 2 Active ASPIRIN 81 MG OR CHEW take one tablet daily 100 3 3 Active TYLENOL 500 MG PO CAPS Take by mouth 5 Tablets daily . 0 6 Active FLONASE INHA 50 MCG/DOSE NAIndications:Outpatient Admitting Clerk sherine sinusitis two sprays each nostril once [...] ears . Active LORAzepam (ATIVAN) 0.5 MG TabletIndications: Anxiety state Take 1 Tablet by mouth at bedtime. 180 Tab 0 5 Active Folic Acid 800 MCG Tablet 2mg by mouth once daily 6 Active Methylcellulose (Laxative) Oral Powder Take by [...] by mouth once a week. 108 Tablet 4 Active predniSONE 5 MG Oral Tablet (Deltasone) Take 1.5 Tablets by mouth in the morning. 135 Tablet 1 4 Active Atorvastatin Calcium 10 MG Oral Tablet (Lipitor)Indicatio ns:Dyslipidemia, goal LDL below 160 Take 1 Tablet by mouth in the morning. In the morning.. 90 Tablet 1 4 Active Metoprolol Succinate ER 25 MG Oral Tablet Extended Release 24 Hour (toPROL XL)Indications:LBB B (left bundle branch block),Left ventricular outflow tract obstruction,Cardia c outflow obstruction Take 1 Tablet by mouth in the morning and 1 Tablet before bedtime. Take one tab in am and one tab in pm. 180 Tablet 3 4 Active Amiodarone HCl 200 MG Oral Tablet (Cordarone)Indicat ions:Atrial fibrillation, unspecified type (HCC) Take 1 Tablet by mouth daily with breakfast. 90 Tablet 3 4 Active Polyethylene Glycol 3350 17 GM Oral Packet (MiraLax) Take 1 Packet by mouth in the morning. Active Eliquis 2.5 MG Oral TabletIndications: Atrial fibrillation, unspecified type (HCC) Take 1 Tablet by mouth in the morning and 1 Tablet before bedtime. 180 Tablet 3 4 Active docusate sodium (COLACE) 50 MG Capsule Take by mouth 2 times a day. 02/24/20 24 Discontinued Senna 30 MG MISC Take 2 Tabs by mouth. 02/24/20 24 Discontinued Eliquis 2.5 MG Oral TabletIndications: Atrial fibrillation, unspecified type (HCC) Take 1 Tablet by mouth in the morning and 1 Tablet before bedtime. 4 02/24/20 24 Discontinued(Re fill) documented as of this encounter (statuses as of 02/24/2024) Active Problems Problem Noted Date Diagnosed Date Rheumatoid arthritis of [facility] sites without rheumatoid factor 09/01/2021 [...] as of this encounter (statuses as of 02/24/2024) Resolved Problems Problem Noted Date Diagnosed Date Resolved Date PURE HYPERCHOLESTEROLEM 01/13/200507/02 Overview: Per Lipid Taxonomy. 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 factor 09/01/19 22 Mitral valve prolapse 2011 documented as of this encounter (statuses as of 02/24/2024) Immunizations Name Administration Dates Next Due COVID-19 mRNA, LNP-s, No Pre serve, 2-Dose Series (Moderna) 04/28/2021,10/22/2020,09/24/2020 COVID-19, MRNA-LNP, 23-24, P F, 30 MCG/0.3 mL, 12 YRS AND ABOVE, IM ([facility]) 05/13/2023 COVID-19, mRNA, LNP-s, PF, B [...] Never Smokeless Tobacco: Never Comments:passive smoke at [facility] as a child Alcohol Use Standard [...] Sign Reading Time Taken Comments Blood Pressure 112/60 02/24/2024 10:16 AM EDT Pulse 64 02/24/2024 10:16 AM EDT Temperature - - Respiratory Rate 14 02/24/2024 10:16 AM EDT Oxygen Saturation - - Inhaled Oxygen Concentration - - Weight 49.4 kg (109 lb) 02/24/2024 10:16 AM EDT Height - - Body Mass Index 21.29 04/03/2022 1:23 PM EDT documented in this encounter Progress Notes * Louisa Carrillo CRNP - 02/24/2024 10:00 AM EDT Images from the original note were not included. Cardiology Outpatient Visit 02/24/2024 Primary Executive Administrator: Corby Espinal Past medical history: Hypertrophic cardiomyopathy with outflow track obstruction and LEYDA of mitral valve with mitral regurgitation Left bundle-branch block Paroxysmal atrial fibrillation, diagnosed 12/07/2023--maintaining sinus rhythm with amiodarone, started 12/07/2023 [id number] score of 3 (age 3, female) , on dose reduced Eliquis (age/weight) Dyslipidemia Severe rheumatoid arthritis, follows with rheumatology--on methotrexate and prednisone Osteoporosis Pectus excavatum HPI 83-year-old female presenting to the cardiology office today in routine follow- up. Was last evaluated by the undersigned approximately 3 months ago. At her last appointment she had concerns regarding tachy palpitations and shortness of breath. Given her history of hypertrophic cardiomyopathy we completed a 14 day Zio monitor; report showed episodes of paroxysmal atrial fibrillation with the longest lasting 5 hours. Average heart rates weretachycardic in the 110s. AFib burden of approximately 2%. Pac burden of 2.7%. Heart rates in sinus rhythm were in the 70s. However prior to receiving Zio monitor results patient was admitted to [facility] from 12/07/2023 until 12/09/2023 due to AFIB RVR. Patient was started on amiodarone and anticoagulated with dose reduced Eliquis (due to age and weight). At discharge metoprolol succinate was reduced from 50 mg daily to 25mg daily. EKG day of discharge showed sinus rhythm with a left bundle branch block, QTC 491 milliseconds. Echocardiogram was performed on 12/07/2023. Patient was in sinus rhythm with a left bundle branch block during exam. There was severe concentric LVH with asymmetric thickening of the septum and narrowing of the LVOT with moderate outflow track obstruction. Mild systolic anterior motion of the mitral valve chordae. LVEF was hyperdynamic at 65-70%. Moderate aortic sclerosis without stenosis. Lfrl-pl-aiesbmaw mitral stenosis and trace MR, trace TR. Today the patient presents feeling generally well, however, up until last week she has felt fatigued. Recently moved to the [place] and moving was "tough" for her. Shortness of breath has been ongoing but now seems to be improving. No chest pain. Denies palpitations, dizziness, syncope or near syncope. No orthopnea, PND, or increased lower extremity edema. No fever, chills, cough, hematochezia, melena, or hemoptysis. Patient is compliant with all medications, and [...] MCG Tablet 2mg by mouth once daily Methylcellulose (Laxative) Oral Powder Take by mouth daily. Ondansetron 4 MG Oral Tablet Disintegrating Place 1 Tablet on tongue every 8 hours as needed for Nausea. dissolve on tongue. traMADol (ULTRAM) 50 MG Tablet Take 1 Tablet by mouth every 6 hours as needed for Pain. Calcium Carbonate Antacid 500 MG Oral Tablet Chewable Take 1 Tablet by mouth in the morning. Soothe XP Ophthalmic Solution Instill into eye 2 times a day. Instill one drop in each eye twice per day NATURAL SUPPLEMENT Take by mouth daily . Takes Lactaid as needed Methotrexate Sodium 2.5 MG Oral Tablet Take 9 Tablets by mouth once a week. 108 Tablet 0 predniSONE 5 MG Oral Tablet (Deltasone) Take 1.5 Tablets by mouth in the morning. 135 Tablet 1 Atorvastatin Calcium 10 MG Oral Tablet (Lipitor) Take 1 Tablet by mouth in the morning. In the morning.. 90 Tablet 1 Metoprolol Succinate ER 25 MG Oral Tablet Extended Release 24 Hour (toPROL XL) Take 1 Tablet by mouth in the morning and 1 Tablet before bedtime. Take one tab in am and one tab in pm. 180 Tablet 3 Amiodarone HCl 200 MG Oral Tablet (Cordarone) Take 1 Tablet by mouth daily with breakfast. 90 Tablet 3 Polyethylene Glycol 3350 17 GM Oral Packet (MiraLax) Take 1 Packet by mouth in the morning. Eliquis 2.5 MG Oral Tablet Take 1 Tablet by mouth in the morning and 1 Tablet before bedtime. 180 Tablet 3 Magnesium Hydroxide 400 MG/5ML Oral Suspension Take by mouth daily as needed for Constipation. (Patient not taking: Reported on 02/24/2024) No current facility-administered medications for this visit. Past Medical History: Diagnosis Date Acute sinusitis Acute Sinusitis, Unspecified Carpal tunnel syndrome Diaphragmatic hernia Mitral valve disorder Obsessive-compulsive disorder Osteoporosis Past Surgical History: Procedure Laterality Date BREAST LESION,OTHER,EXCISION 05/20/2009 Needle localized right breast biopsy (benign) 05/20/09, [facility], Dr. Whelan COLONOSCOPY 12/31/2004 repeat [...] performed by Pop Gutierrez MD at OR [facility] REMOVE CATARACT, INSERT LENS PROSTH Right 03/22/2018 right EXTRACAPSULAR CATARACT REMOVAL WITH INTRAOCULAR LENS performed by Pop Gutierrez MD at OR [facility] REMOVE VULVA GLAND/LESION bartholin's SMALL [...] home as a child Vaping Use Vaping status: Never Used Substance Use Topics Alcohol use: No Drug use: No Review of patient's allergies indicates: Allergen Reactions Bee Stings Other Reaction(s): BEE/WASP-NAUSEA AND DIZZINESS Prolia [Denosumab] Actifed [Triprolidine-Pseudoephedrine] Afrin 12 Hour [Anefrin Nasal [place]] Amoxicillin Antipyrine Rash and blisters Augmentin [Amoxicillin-Pot Clavulanate] Benzocaine Other (Please comment) Headache Celexa [Citalopram Hydrobromide] Other (Please comment) Tremors Citalopram Clarithromycin gi upset Cytotec [Misoprostol] Nexium [Esomeprazole] Plaquenil [Hydroxychloroquine Sulfate] Pseudoephedrine Sulfa Antibiotics ? rash Sympathomimetics Clavulanic Acid Other reaction(s): Unknown Magnesium Citrate Other reaction(s): projectile vomitting Review of Systems: See HPI for pertinent positives. All others negative, other than those noted in HPI. Physical Exam BP 112/60 | Pulse 64 | Resp 14 | Wt 49.4 kg (109 lb) | BMI 21.29 kg/m | BSA 1.45 m General: No acute distress. A+Ox3. HEENT: [...] deficits. PSYCH: Normal. Lab data/imaging study review: Echo at [facility] 12/07/2023 [facility] 09/2022 Patient had a min HR [...] with mitral regurgitation 1. Continue metoprolol succinate 25 mg twice daily 3. Avoid afterload reducing medications. Encouraged adequate hydration. 3. Paroxysmal atrial fibrillation -Diagnosed 12/07/2023--maintaining sinus rhythm with amiodarone, started 12/07/2023 -[id number]-BCDs score of 3 (age 3, female) Continue dose reduced Eliquis 2.5 twice daily due to age and weight Continue amiodarone 200 mg daily-- surveillance blood work ordered. EKG showing a stable QTC between 500-515 ms, however, likely over estimated due to LBBB. PFTs and CXR ordered 4. LBBB (left bundle branch block) -Chronic. 5. Dyslipidemia, LDL goal below 70 -LDL well controlled, 48 1. Continue atorvastatin 10 mg daily The patient agrees to the above plan and will call with additional questions or concerns. ER with all emergencies advised. Follow-up: Return in about 4 months (around 06/26/2024). | Check-out note: Labs today. Schedule CXRand PFTs. EKG in 1 month I spent a total of 45 minutes on the date of service in preparation, delivery, and documentation ofthe care provided to Vane Carlton excluding any time spent in the performance of separately billed services. SULMA Perez [facility], Department of Cardiology This chart was completed in part utilizing [employer] Speech Voice Recognition Software. Grammatical errors, random [...] documented in this encounter Nursing Notes * Zofia Moore LPN - 02/24/2024 10:14 AM EDT Examination Room: 4 Name: Vane Carlton Date of : 1940 Reason for Visit: Follow up Problems/Concerns: Feeling 'terrible' since November, tired. Turned a corner last Wednesday. SOB with exertion, but feeling better now Interim Hosp(s): Denies since November Chest Pain/SOB: Denies CP, SOB when active MyChart Discussed: DECLINES Patient was instructed to not get up on the exam table until directed and assisted by their provider; patient is to remain seated in the chair/ wheelchair/ exam table for fall prevention and safety reasons. Patient is aware staff will assist stepping down off exam table with personnel. documented in this encounter Plan of Treatment Upcoming Encounters Date Type Department Care Team (Late st Contact Info) Description 03/27/2024 10:15 AM EDT Cardiac Studies Cardiac Studies, [facility] [address] [facility] [place] [address] 04/06/2024 1:00 PM EDT PulmDiagnostic Pulmonary Function Lab, [facility] [address] [facility] [place] [address] [address], [address] [facility] [place] [address] 04/25/2024 11:00 AM EDT Office Visit Rheumatology [facility] [address] [facility] [place], [place] [address] Bethel Jones MD [address] [facility] [place], [place] [address] 06/27/2024 11:00 AM EST Office Visit Cardiology, [facility] [address] [place] [address] Devon Juarez MD [address] [place] [address] Pending Results Name Type Priority Associated Diagnoses Date /Time XR CHEST 2 VIEWS Medical Imaging Routine PAF (paroxysmal atrial fibrillation) ([facility]) Hypertrophic obstructive cardiomyopathy (HOCM) ([facility]) Left ventricular outflow tract obstruction Cardiac outflow obstruction LBBB (left bundle branch block) Dyslipidemia, goal LDL below 70 02/24/2024 10:50 AM EDT Scheduled Orders Name Type Priority Associated Diagnoses Orde r Schedule EKG EKG Routine LBBB (left bundle branch block) Left ventricular outflow tract obstruction Cardiac outflow obstruction Hypertrophic obstructive cardiomyopathy (HOCM) ([facility]) Ordered: 02/24/2024 CBC Lab Routine PAF (paroxysmal atrial fibrillation) ([facility]) Hypertrophic obstructive cardiomyopathy (HOCM) ([facility]) Left ventricular outflow tract obstruction Cardiac outflow obstruction LBBB (left bundle branch block) Dyslipidemia, goal LDL below 70 Expected: 02/24/2024, Expires: 02/23/2025 COMPREHENSIVE METABOLIC PANEL Lab Routine PAF (paroxysmal atrial fibrillation) ([facility]) Hypertrophic obstructive cardiomyopathy (HOCM) ([facility]) Left ventricular outflow tract obstruction Cardiac outflow obstruction LBBB (left bundle branch block) Dyslipidemia, goal LDL below 70 Expected: 02/24/2024, Expires: 02/23/2025 MAGNESIUM Lab Routine PAF (paroxysmal atrial fibrillation) ([facility]) Hypertrophic obstructive cardiomyopathy (HOCM) ([facility]) Left ventricular outflow tract obstruction Cardiac outflow obstruction LBBB (left bundle branch block) Dyslipidemia, goal LDL below 70 Expected: 02/24/2024, Expires: 02/23/2025 TSH WITH FREE T4 IF INDICATED Lab Routine PAF (paroxysmal atrial fibrillation) ([facility]) Hypertrophic obstructive cardiomyopathy (HOCM) (H[facility]) Left ventricular outflow tract obstruction Cardiac outflow obstruction LBBB (left bundle branch block) Dyslipidemia, goal LDL below 70 Expected: 02/24/2024, Expires: 02/23/2025 DIFFUSION CAPACITY (DLCO) Procedures Routine PAF (paroxysmal atrial fibrillation) (HCC) Hypertrophic obstructive cardiomyopathy (HOCM) (HCC) Left ventricular outflow tract obstruction Cardiac outflow obstruction LBBB (left bundle branch block) Dyslipidemia, goal LDL below 70 Expected: 02/24/2024, Expires: 03/26/2025 LUNG VOLUMES (PLETHYSMOGRAPHY) Procedures Routine PAF (paroxysmal atrial fibrillation) (HCC) Hypertrophic obstructive cardiomyopathy (HOCM) (HCC) Left ventricular outflow tract obstruction Cardiac outflow obstruction LBBB (left bundle branch block) Dyslipidemia, goal LDL below 70 Expected: 02/24/2024, Expires: 03/26/2025 SPIROMETRY B/A BRONCHODILATOR Procedures Routine PAF (paroxysmal atrial fibrillation) (HCC) Hypertrophic obstructive cardiomyopathy (HOCM) (HCC) Left ventricular outflow tract obstruction Cardiac outflow obstruction LBBB (left bundle branch block) Dyslipidemia, goal LDL below 70 Expected: 02/24/2024, Expires: 03/26/2025 EKG COMPLETE (TRACING AND INTERP) EKG Routine PAF (paroxysmal atrial fibrillation) (HCC) Hypertrophic obstructive cardiomyopathy (HOCM) (HCC) Left ventricular outflow tract obstruction Cardiac outflow obstruction LBBB (left bundle branch block) Dyslipidemia, goal LDL below 70 Atrial fibrillation, unspecified type (HCC) Expected: 03/26/2024, Expires: 03/26/2025 Health Maintenance Due Date Last Done Comments Depression Screening 1952 Zoster Vaccines (1 of 2) 1960 DXA Scan 05/07/2011 05/07/2009, 12/2008, 02/11/2006, Additional history exists *BISPHONATE OR OTHER ACCEPTABLE MEDICATION NEEDED FOR OSTEOPOROSIS (REFER TO SMARTSET #1146) 08/03/2014 Colonoscopy 02/19/2015 02/19/2010, 01/29/2005 Pneumococcal Vaccine: 65+ Years (3 of 3 - PPSV23 or PCV20) 07/02/2016 05/07/2016, 05/17/2001 COVID-19 Vaccine ( season) 2023 05/13/2023, 06/02/2022, 01/13/2022, Additional history exists Influenza Vaccine (FLU shot) (#1) 2024 05/13/2023, 05/13/2023, 06/02/2022, Additional history exists DTaP,Tdap,and Td Vaccines (2 - Td or Tdap) 09/19/2025 09/19/2015, 12/09/2005 RETIRED - COLONOSCOPY-EVERY 5 YRS AGES 18-100 Discontinued 02/19/2010, 02/19/2010, 07/05/2006 (Done elsewhere), Additional history exists VITAMIN D LEVEL ONCE IN A LIFETIME-USE SMARTSET# 58141 Completed 01/01/2022 HPV (Gardasil) Vaccine Aged Out No lo nger eligible based on patient's age to complete this topic Hepatitis B Vaccine Aged Out No longe r eligible based on patient's age to complete this topic MENINGOCOCCAL (MENACTRA/MENVEO) Aged Out No longer eligible based on patient's age to complete this topic documented as of this encounter Medical Devices Implanted Type Area Produce Field Merchandiser Device Identifier Shelf Expiration Date Model / Serial / Lot Lens Intraoc 23.5 - [id number] - [id number] Implanted:Qty: 1 on 03/08/2018 by Pop Gutierrez MD at OR [facility] Left: Eye [employer]OM[employer] 09/01/2022 [id number] / [id number] / [id number] Lens Intraoc 21.5 - [id number] - [id number] Implanted:Qty: 1 on 03/22/2018 by Pop Gutierrez MD at OR 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 * Full Code Date Activated Date Inactivated Comments 03/08/2018 7:53 AM 03/08/2018 2:47 PM This order ref lects the patients wishes and were consensually agreed upon. Care Teams Rehabilitation Supervisor Relationship Specialty Start Date End Date Aaron Wolf MD [address] [place] [address] PCP - General Critical Care Medicine 02/26/20 documented as of this encounter
--- OUTSIDE RECORDS SUMMARY | 2024-04-23 15:23 | External Medical Summary | Summary of Care ---
Author Name Unknown Organization [facility] Address [address] [facility] [place] [address] Phone [phone] Care Team Providers Care Word Processor Operator Name Role Phone Aaron Wolf MD Primary Care Provider [phone] Reason for Visit * Reason Comments Pulmonary Function Test PFT with broncho dilator Encounter Details Date Type Department Care Team (Latest Contact Info) Description 04/06/2024 1:00 PM EDT PulmDiagnostic Pulmonary Function Lab, [facility] [address] [facility] [place] [address] [address], [address] [place] [address] PAF (paroxysmal atrial fibrillation) ([facility]; Hypertrophic obstructive cardiomyopathy (HOCM) ([facility]); Left ventricular outflow tract obstruction; Cardiac outflow obstruction; LBBB (left bundle branch block); Dyslipidemia, goal LDL below 70 Allergies Active Allergy Reactions Criticality Noted Date Comments Triprolidine-Pseudoephedrin e 05/22/2015 Anefrin Nasal [place] 08/12/2018 Amoxicillin 04/04/2004 Antipyrine 03/09/2006 Rash and [...] Status MULTIVITAMIN TABS OR daily 0 10/31/2001 Act tamara ASPIRIN 81 MG OR CHEW take one [...] Date Diagnosed Date Rheumatoid arthritis of [facility] without rheumatoid factor 09/01/2021 Encounter for [...] MCG/0.3 mL, 12 YRS AND ABOVE, IM ([facility]) 05/13/2023 COVID-19, mRNA, LNP-s, PF, B [...] history. 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 Pt is on AMIODARONE. Spirometry, DLCO, [...] 04/26/2024 11:00 AM EDT Office Visit Rheumatology [facility] [address] [place], [place] [address] Bethel Jones MD [address] [place] [address] 06/27/2024 11:00 AM EST Office Visit Cardiology, [facility] [place] [address] Devon Juarez MD [address] [facility] [place] [address] Health Maintenance Due Date Last Done Comments [...] D LEVEL ONCE IN A LIFETIME-USE SMARTSET# [id number] Completed 01/01/2022 HPV (Gardasil) Vaccine Aged Out No lo nger eligible based on patient's age to complete this topic Hepatitis B Vaccine Aged Out No longe r eligible based on patient's age to complete this topic MENINGOCOCCAL (MENACTRA/MENVEO) Aged Out No longer eligible based on patient's age to complete this topic documented as of this encounter Medical Devices Implanted Type Area Acoustic Intelligence Specialist Device Identifier Shelf Expiration Date Model / Serial / Lot Lens Intraoc 23.5 - [id number] - [id number] Implanted:Qty: 1 on 03/08/2018 by Pop Gutierrez MD at OR [facility] Left: Eye [employer]OMB 09/01/2022 [id number] / [id number] / [id number] Lens Intraoc 21.5 - [id number] - [id number] Implanted:Qty: 1 on 03/22/2018 by Pop Gutierrez MD at OR [facility] Right: Eye [employer]CH [employer]OMB 10/30/2022 [id number] / [id number] / [id number] documented as of this encounter Visit Diagnoses [...] Documents on File Type Date Recorded Patient Windows Support Engineer Expl anation Advance Directives and Living Will 11/14/[address] 11/14/2003 * Full Code (Latest Code Status on File) Date Activated Date Inactivated Comments 03/22/2018 6:30 AM 03/22/2018 1:21 PM This order reflects the patients wishes and were consensually agreed upon. * Full Code Date Activated Date Inactivated Comments 03/08/2018 7:53 AM 03/08/2018 2:47 PM This order ref lects the patients wishes and were consensually agreed upon. Care Teams Word Processor Operator Relationship Specialty Start Date End Date Aaron Wolf MD [address] [place] [address] PCP - General Critical Care Medicine 02/26/20 documented as of this encounter
--- OUTSIDE RECORDS SUMMARY | 2024-04-23 15:23 | External Medical Summary | Summary of Care ---
Author Name Unknown Organization [facility] Address [address] [facility] [place] [address] Phone [phone] Care Team Providers Care Unified Communications Architect Name Role Phone Aaron Wolf MD Primary Care Provider [phone] Reason for Visit * Reason Onset Date Comments EKG 03/27/2024 Encounter Details Date Type Department Care Team (Late st Contact Info) Description 03/27/2024 Telephone Gastroenterology, [facility] [address] [place] [address] GerardoLouisa garcia CRNP [address] [place] [address] EKG Allergies Active Allergy Reactions Criticality Noted Date Comments Triprolidine-Pseudoephedrin e 05/22/2015 Anefrin Nasal [place] 08/12/2018 Amoxicillin 04/04/2004 Antipyrine 03/09/2006 Rash and [...] inhalation solution 2.5 mgIndications:PAF (paroxysmal atrial fibrillation) ([facility]) 2.5 mg NEBULIZER PRN 02/28/2024 Activ e Albuterol Sulfate (Proventil) (5 MG/ML) 0.5% *conc* inhalation solution 2.5 mgIndications:PAF (paroxysmal atrial fibrillation) ([facility]) 2.5 mg NEBULIZER PRN 02/28/2024 Activ e documented as of this encounter (statuses as of 03/27/2024) Active Problems Problem Noted Date Diagnosed Date Rheumatoid arthritis of [facility] sites without rheumatoid factor 09/01/2021 Encounter [...] MCG/0.3 mL, 12 YRS AND ABOVE, IM ([facility]) 05/13/2023 COVID-19, mRNA, LNP-s, PF, B ooster, [...] Never Smokeless Tobacco: Never Comments:passive smoke at [facility] as a child Alcohol Use Standard Drinks/Week [...] encounter Miscellaneous Notes * Telephone Encounter - Paige Portillo LPN - 03/27/2024 10:17 AM EDT Pt stopped in today and had their EKG done. It was transmitted and should be in the pt's chart. Thank you documented in this encounter Plan of Treatment Upcoming Encounters Date Type Department Care Team (Late st Contact Info) Description 04/06/2024 1:00 PM EDT PulmDiagnostic Pulmonary Function Lab, [facility] [address] [facility] [place] [address] [place], [address] [facility] [place] [address] 04/26/2024 11:00 AM EDT Office Visit Rheumatology [place] [address] [facility] [place] [address] Bethel Jones MD [address] [place] [address] [place] [address] 06/27/2024 11:00 AM EST Office Visit Cardiology, [facility] 132 [facility] [place] [address] Devon Juarez MD 132 [facility] [place] [address] Health Maintenance Due Date Last Done Comments [...] D LEVEL ONCE IN A LIFETIME-USE SMARTSET# 77118 Completed 01/01/2022 HPV (Gardasil) Vaccine Aged Out No lo nger eligible based on patient's age to complete this topic Hepatitis B Vaccine Aged Out No longe r eligible based on patient's age to complete this topic MENINGOCOCCAL (MENACTRA/MENVEO) Aged Out No longer eligible based on patient's age to complete this topic documented as of this encounter Medical Devices Implanted Type Area Banking Teacher Device Identifier Shelf Expiration Date Model / Serial / Lot Lens Intraoc 23.5 - [id number] - [id number] Implanted:Qty: 1 on 03/08/2018 by Pop Gutierrez MD at OR [facility] Left: Eye BAUSCH & LOMB 09/01/2022 [id number] / [id number] / [id number] Lens Intraoc 21.5 - [id number] - [id number] Implanted:Qty: 1 on 03/22/2018 by Pop Gutierrez MD at OR [facility] Right: Eye BAUSCH & LOMB 10/30/2022 [id number] / [id number] / [id number] documented as of this encounter Advance Directives Documents on File Type Date Recorded Patient Medical Records Tech Expl anation Advance Directives and Living Will 11/14/2003 Power of Senior Electrical Project Manager 11/14/2003 * Full Code (Latest Code Status on File) Date Activated Date Inactivated Comments 03/22/2018 6:30 AM 03/22/2018 1:21 PM This order r eflects the patients wishes and were consensually agreed upon. * Full Code Date Activated Date Inactivated Comments 03/08/2018 7:53 AM 03/08/2018 2:47 PM This order ref lects the patients wishes and were consensually agreed upon. Care Teams Unified Communications Architect Relationship Specialty Start Date End Date Aaron Wolf MD [address] [place] [address] PCP - General Critical Care Medicine 02/26/20 documented as of this encounter
--- OUTSIDE RECORDS SUMMARY | 2024-04-23 15:23 | External Medical Summary | Summary of Care ---
Author Name Unknown Organization [facility] Address [address] [facility] [place] [address] Phone [phone] Care Team Providers Care Pick Up Attendant Name Role Phone Aaron Wolf MD Primary Care Provider [phone] Reason for Visit * Reason Onset Date Comments Med Request 01/05/2024 Encounter Details Date Type Department Care Team (Late st Contact Info) Description 01/05/2024 Telephone Cardiology, [facility] [address] [place] [address] Rony Espinal, [address] [place] [address] Med Request Allergies Active Allergy Reactions Criticality Noted Date Comments Triprolidine-Pseudoephedrin e 05/22/2015 Anefrin Nasal [place] 08/12/2018 Amoxicillin 04/04/2004 Antipyrine 03/09/2006 Rash and [...] as of this encounter (statuses as of 01/06/2024) Medications Medication Sig Dispensed Refills Start Date [...] 3 12/17/2023 Active Eliquis 2.5 MG Oral TabletIndications:A trial fibrillation, unspecified type (HCC) Take 1 Tablet by mouth in the morning and 1 Tablet before bedtime. 12/09/2023 Active Amiodarone HCl 200 MG Oral Tablet (Cordarone)Indicati ons:Atrial fibrillation, unspecified type (HCC) Take 1 Tablet [...] as of this encounter (statuses as of 01/06/2024) Active Problems Problem Noted Date Diagnosed Date Rheumatoid arthritis of [facility] sites without rheumatoid factor 09/01/2021 [...] as of this encounter (statuses as of 01/06/2024) Resolved Problems Problem Noted Date Diagnosed Date Resolved Date PURE HYPERCHOLESTEROLEM 01/13/200507/02 Overview: Per Lipid Taxonomy. 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 factor 09/01/19 22 Mitral valve prolapse 2011 documented as of this encounter (statuses as of 01/06/2024) Immunizations Name Administration Dates Next Due COVID-19 [...] Never Smokeless Tobacco: Never Comments:passive smoke at [facility] as a child Alcohol Use Standard [...] encounter Miscellaneous Notes * Telephone Encounter - Lorena Salcedo CRNP - 01/06/2024 1:38 PM EDT Reviewed in coverage of junior Guerra. Script signed. * Telephone Encounter - Violeta Bains RN - 01/05/2024 4:10 PM EDT Images from the original note were not included. Chart reviewed, appears patient admitted to [facility] 12/06/23 with following changes noted on d/c summary: * Telephone Encounter - Kaylie Almonte OSA - 01/05/2024 1:52 PM EDT Person calling: patient Relationship to patient: patient Number to return call: [phone] Reason for call(brief): amiodarone refill Pharmacy: [facility] Provider Name: Kylie Detailed message to office: out of amiodarone, just got a hold over dose of 14 days. Please expedite. documented in this encounter Plan of Treatment Upcoming Encounters Date Type Department Care Team (Late st Contact Info) Description 02/24/2024 10:00 AM EDT Office Visit Cardiology, [facility] [address] [place] [address] Louisa Carrillo CRNP [address] [place] [address] 04/25/2024 11:00 AM EDT Office Visit Rheumatology [facility] [address] [place] [address] Bethel Jones MD [address] [employer] [place] [address] Health Maintenance Due Date Last Done Comments [...] D LEVEL ONCE IN A LIFETIME-USE SMARTSET# 88860 Completed 01/01/2022 Influenza Vaccine (FLU shot) Completed [...] this encounter Medical Devices Implanted Type Area Fruit Culler Device Identifier Shelf Expiration Date Model / Serial / Lot Lens Intraoc 23.5 - [id number] - [id number] Implanted:Qty: 1 on 03/08/2018 by Pop Gutierrez MD at OR [facility] Left: Eye BAUSCH & LOMB 09/01/2022 [id number] / [id number] / [id number] Lens Intraoc 21.5 - [id number] - [id number] Implanted:Qty: 1 on 03/22/2018 by Pop Gutierrez MD at OR [facility] Right: Eye BAUSCH & LOMB 10/30/2022 [id number] / [id number] / [id number] documented as of this encounter Visit Diagnoses Diagnosis Atrial fibrillation, unspecified type (HCC)- Primary documented in this encounter Advance Directives Documents on File Type Date Recorded 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 * Full Code Date Activated Date Inactivated Comments 03/08/2018 7:53 AM 03/08/2018 2:47 PM This order ref lects the patients wishes and were consensually agreed upon. Care Teams Pick Up Attendant Relationship Specialty Start Date End Date Aaron Wolf MD [address] [place] [address] PCP - General Critical Care Medicine 02/26/20 documented as of this encounter
--- OUTSIDE RECORDS SUMMARY | 2024-04-23 15:23 | External Medical Summary | Summary of Care ---
Author Name Unknown Organization [facility] Address [address] [place] [facility] [place] [place] [address] Phone [phone] Care Team Providers Care Radiotelegraphist Name Role Phone Aaron Wolf MD Primary Care Provider [phone] Reason for Visit * Reason Comments eRx-Medication Refill Encounter Details Date Type Department Care Team (Late st Contact Info) Description 03/02/2024 Refill Rheumatology [place] [address] [place] [address] Vale Mary MD [facility] [place] [address] Allergies Active Allergy Reactions Criticality Noted Date Comments Triprolidine-Pseudoephedrin e 05/22/2015 Anefrin Nasal [place] 08/12/2018 Amoxicillin 04/04/2004 Antipyrine 03/09/2006 Rash and [...] as of this encounter (statuses as of 03/03/2024) Medications Medication Sig Dispensed Refills Start Date End Date Status MULTIVITAMIN TABS OR daily 0 2 Active ASPIRIN 81 MG OR CHEW take one tablet daily 100 3 3 Active TYLENOL 500 MG PO CAPS Take by mouth 5 Tablets daily . 0 6 Active FLONASE INHA 50 MCG/DOSE NAIndications:Chron ic [...] the morning. Active Eliquis 2.5 MG Oral TabletIndications:A trial fibrillation, unspecified type (HCC) Take 1 Tablet by mouth in the morning and 1 Tablet before bedtime. 180 Tablet 3 4 Active Methotrexate Sodium 2.5 MG Oral Tablet TAKE 9 TABLETS ONCE A WEEK 108 Tablet 1 4 Active Methotrexate Sodium 2.5 MG Oral Tablet Take 9 Tablets by mouth once a week. 108 Tablet 4 03/03/20 24 Discontinued Hospital, Clinic, or Other Facility Administered Medication [...] as of this encounter (statuses as of 03/03/2024) Active Problems Problem Noted Date Diagnosed Date Rheumatoid arthritis of [facility] sites without rheumatoid factor [...] as of this encounter (statuses as of 03/03/2024) Resolved Problems Problem Noted Date Diagnosed Date Resolved Date PURE HYPERCHOLESTEROLEM 01/13/200507/02 Overview: Per Lipid Taxonomy. 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 factor 09/01/19 22 Mitral valve prolapse 2011 documented as of this encounter (statuses as of 03/03/2024) Immunizations Name Administration Dates Next Due COVID-19 mRNA, LNP-s, No Pre serve, 2-Dose Series (Moderna) 04/28/2021,10/22/2020,09/24/2020 COVID-19, MRNA-LNP, 23-24, P F, 30 MCG/0.3 mL, 12 YRS AND ABOVE, IM ([facility]) 05/13/2023 COVID-19, mRNA, LNP-s, PF, B ooster, [...] Smokeless Tobacco: Never Comments:[place] Alcohol Use Standard Drinks/Week [...] encounter Miscellaneous Notes * Telephone Encounter - Hilda Knowles [facility] - 03/03/2024 6:49 AM EDTSigned Prescriptions: Disp Refills Methotrexate Sodium 2.5 MG Oral Tablet 108 Ta*1 Sig: TAKE 9 TABLETS ONCE A WEEKAuthorizing Provider: VALE MARY User: HILDA KNOWLES * Telephone Encounter - Hilda Knowles RPh - 03/03/2024 6:46 AM EDT Rheumatology: Refill Request(s) Per review of the refill parameters, Medication was refilled Per physician, labs ok every 6 months 07/13/23 visit Hilda Knowles RPh [facility] Clinical Pharmacist Rheumatology Department 03/03/2024,6:47 AM documented in this encounter Plan of Treatment Upcoming Encounters Date Type Department Care Team (Late st Contact Info) Description 03/27/2024 10:15 AM EDT Card[facility] [address] [place] [address] 04/06/2024 1:00 PM EDT Pul[facility]ostic [facility] [address] [place] [address] [address], [address] [place] [address] 04/25/2024 11:00 AM EDT Office Visit Rheumatology [address] [place] [address] Vale Mary MD [address] [place] [address] [place] [address] 06/27/2024 11:00 AM EST [facility] [address] [place] [address] Devon Juarez MD 132 [place] [address] Health Maintenance Due Date Last Done Comments [...] D LEVEL ONCE IN A LIFETIME-USE SMARTSET# 39965 Completed 01/01/2022 HPV (Gardasil) Vaccine Aged Out No lo nger eligible based on patient's age to complete this topic Hepatitis B Vaccine Aged Out No longe r eligible based on patient's age to complete this topic MENINGOCOCCAL (MENACTRA/MENVEO) Aged Out No longer eligible based on patient's age to complete this topic documented as of this encounter Medical Devices Implanted Type Area Deputy County Clerk Device Identifier Shelf Expiration Date Model / Serial / Lot Lens Intraoc 23.5 - [id number] - [id number] Implanted:Qty: 1 on 03/08/2018 by Pop Gutierrez MD at OR 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 * Full Code Date Activated Date Inactivated Comments 03/08/2018 7:53 AM 03/08/2018 2:47 PM This order ref lects the patients wishes and were consensually agreed upon. Care Teams Radiotelegraphist Relationship Specialty Start Date End Date Aaron Wolf MD [address] [place] [address] PCP - General Critical Care Medicine 02/26/20 documented as of this encounter
--- OUTSIDE RECORDS SUMMARY | 2024-04-23 15:23 | External Medical Summary | Summary of Care ---
Author Name Unknown Organization [facility] Address [address] [facility] [place] [address] Phone [phone] Care Team Providers Care Heeler Machine Name Role Phone Aaron Wolf MD Primary Care Provider [phone] Reason for Visit * Reason Onset Date Comments EKG 03/27/2024 Encounter Details Date Type Department Care Team (Late st Contact Info) Description 03/27/2024 Telephone Gastroenterology, [facility] [address] [place] [address] GerardoLouisa garcia CRNP [address] [place] [address] EKG Allergies Active Allergy Reactions Criticality Noted Date Comments Triprolidine-Pseudoephedrin e 05/22/2015 Anefrin Nasal [place] 08/12/2018 Amoxicillin 04/04/2004 Antipyrine 03/09/2006 Rash and [...] inhalation solution 2.5 mgIndications:PAF (paroxysmal atrial fibrillation) ([facility]) 2.5 mg NEBULIZER PRN 02/28/2024 Activ e Albuterol Sulfate (Proventil) (5 MG/ML) 0.5% *conc* inhalation solution 2.5 mgIndications:PAF (paroxysmal atrial fibrillation) ([facility]) 2.5 mg NEBULIZER PRN 02/28/2024 Activ e documented as of this encounter (statuses as of 03/30/2024) Active Problems Problem Noted Date Diagnosed Date Rheumatoid arthritis of [facility] sites without rheumatoid factor 09/01/2021 Encounter for [...] MCG/0.3 mL, 12 YRS AND ABOVE, IM ([facility]) 05/13/2023 COVID-19, mRNA, LNP-s, PF, B ooster, [...] Never Smokeless Tobacco: Never Comments:passive smoke at [facility] as a child Alcohol Use Standard Drinks/Week [...] AM EDT EKG reviewed in coverage of SULMA Guerra NSR with Left BBB Qtc 503ms, most [...] 1:00 PM EDT PulmDiagnostic Pulmonary Function Lab, [facility] [address] [place] [address] [place], [address] [facility] [place] [address] 04/26/2024 11:00 AM EDT Office Visit Rheumatology [address] [place] [address] Bethel Jones MD [address] [place] [address] [employer] [place] [address] 06/27/2024 11:00 AM EST Office Visit Cardiology, [facility] [place] [address] Devon Juarez MD 132 [facility] [place] [address] Health Maintenance Due Date Last Done Comments [...] D LEVEL ONCE IN A LIFETIME-USE SMARTSET# 72811 Completed 01/01/2022 HPV (Gardasil) Vaccine Aged Out No lo nger eligible based on patient's age to complete this topic Hepatitis B Vaccine Aged Out No longe r eligible based on patient's age to complete this topic MENINGOCOCCAL (MENACTRA/MENVEO) Aged Out No longer eligible based on patient's age to complete this topic documented as of this encounter Medical Devices Implanted Type Area Wildland Fire Fighter Specialist Device Identifier Shelf Expiration Date Model / Serial / Lot Lens Intraoc 23.5 - [id number] - [id number] Implanted:Qty: 1 on 03/08/2018 by Pop Gutierrez MD at OR [facility] Left: Eye BAUSCH & LOMB 09/01/2022 [id number] / [id number] / [id number] Lens Intraoc 21.5 - [id number] - [id number] Implanted:Qty: 1 on 03/22/2018 by Pop Gutierrez MD at OR [facility] Right: Eye BAUSCH & LOMB 10/30/2022 [id number] / [id number] / [id number] documented as of this encounter Advance Directives Documents on File Type Date Recorded Patient Party Supply Specialist Expl anation Advance Directives and Living Will 11/14/2003 Power of Autocad 11/14/2003 * Full Code (Latest Code Status on File) Date Activated Date Inactivated Comments 03/22/2018 6:30 AM 03/22/2018 1:21 PM This order r eflects the patients wishes and were consensually agreed upon. * Full Code Date Activated Date Inactivated Comments 03/08/2018 7:53 AM 03/08/2018 2:47 PM This order ref lects the patients wishes and were consensually agreed upon. Care Teams Heeler Machine Relationship Specialty Start Date End Date Aaron Wolf MD [address] [place] [address] PCP - General Critical Care Medicine 02/26/20 documented as of this encounter
[2024-04-23 16:14] LABS: Albumin Globulin Ratio 1.6 (0.9-2); Albumin Level 3.7 gm/dl (3.4-5.0); BUN Creatinine Ratio 14.3 (10-20); Bilirubin,Total 0.9 mg/dl (0.2-1.0); Calcium 8.5 mg/dl (8.6-10.3); Creatinine Clr Calc Pharmacy 42.5 ml/min; Est GFR (African American) 83.3 ml/min; Est GFR (Non-African American) 71.9 ml/min; Globulin 2.3 gm/dl (2.5-4.0); Potassium 3.7 mmol/L (3.5-5.1)
[2024-04-23 16:16] LABS: Hematocrit (blood only) 35.4 % (37.0-47.0); Hemoglobin 11.1 g/dl (12.0-16.0); Mean Corpuscular Hemoglobin 26.8 pg (25.0-34.0); Mean Corpuscular Hgb Conc 31.4 g/dL (32.0-36.0); Mean Corpuscular Volume 85.5 fL (80.0-100.0); Mean Platelet Volume 11.7 fL (9.4-12.4); Platelet Count 141 K/uL (130-400); RDW Coefficient of Variation 19.1 % (11.5-14.5); Red Blood Count 4.14 M/uL (4.20-5.40); White Blood Count 11.39 K/ul (4.8-10.8)
[2024-04-23 16:17] LABS: Basophils # (auto) 0.02 K/uL (0.00-0.20); Basophils % (auto) 0.2 %; Eosinophils # (auto) 0.02 K/uL (0.00-0.50); Eosinophils % (auto) 0.2 %; Immature Granulocytes # (auto) 0.07 K/uL (0.01-0.20); Immature Granulocytes % (auto) 0.6 %; Lymphocytes # (auto) 0.49 K/uL (1.20-3.40); Lymphocytes % (auto) 4.3 %; Monocytes # (auto) 0.51 K/uL (0.11-0.59); Monocytes % (auto) 4.5 %; Neutrophils # (auto) 10.28 K/uL (1.40-6.50); Neutrophils % (auto) 90.2 %; Polychromasia 1+
--- NOTE | 2024-04-23 16:26 | XRay Report ---
XR chest 1V portable CLINICAL HISTORY: hypoxia COMPARISON STUDY: Chest radiograph December 06, 2023. FINDINGS: S-shaped scoliosis of the thoracic spine is incidentally noted. There is no pneumothorax. A small left pleural effusion has decreased since prior exam. Left basilar opacity has improved. There is mild interstitial thickening. Linear bibasilar densities favor atelectasis. Mild cardiomegaly is unchanged. IMPRESSION: 1. Cardiomegaly. Mild interstitial thickening suggestive of pulmonary edema. 2. Interval decrease in left basilar opacity and a small left pleural effusion since prior exam. ACT 112: Negative or not required by law. Electronically signed by: Francois Robbins M.D. 04/23/2024 4:24 PM
[2024-04-23 16:35] LABS: Influenza A virus by PCR Negative (Neg); Influenza B virus by PCR Negative (Neg); RSV by PCR Negative (Neg); SARS CoV2 RNA(COVID-19) Ceph NEGATIVE (Negative)
--- NOTE | 2024-04-23 17:12 | Emergency Department Note ---
History of Present Illness General Chief complaint: Illness Time Seen by Provider: 04/23/24 16:50 Source: patient, RN notes reviewed and old records reviewed (12/07/23-admission for pneumonia) Mode of arrival: ambulatory Limitations: no limitations History of Present Illness This patient is an 83-year-old female who is brought in from the [facility] after having shortness of breath her O2 sat was in 70s upon arrival she is in the high 90s with supplemental oxygen appears in no distress. She has had a headache for quite some time she tells me has been feeling achy she is a little bit of a cough she had chest heaviness other day but none today she had left arm pain yesterday but none today. No heart racing no pleurisy no dysuria she did have a temperature of 101. Apparently there is been a lot of exposure to COVID. She has had nausea but no vomiting. 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 She is on long term acute care registered nurse anticoagulation for A-fib Home Medications Medication Instructions Recorded Confirmed Type acetaminophen 500 mg tablet 1,000 mg PO Q8H PRN Pain 08/17/18 04/23/24 History (Tylenol Extra Strength) aspirin 81 mg tablet,delayed 81 mg PO QAM 08/17/18 04/23/24 History release atorvastatin 10 mg tablet 10 mg PO HS 08/17/18 04/23/24 History calcium carbonate 600 mg-vitamin 1 tab PO QAM 08/17/18 04/23/24 History D3 5 mcg (200 unit) capsule (Calcium 600 + D(3)) cholecalciferol (vitamin D3) 25 1,000 unit PO QAM 08/17/18 04/23/24 History mcg (1,000 unit) capsule (Vitamin D3) fluticasone propionate 50 2 spray intranasal QA 08/17/18 04/23/24 History mcg/actuation nasal spray,suspension lorazepam 0.5 mg tablet 0.5 mg PO HS 08/17/18 04/23/24 History pantoprazole 40 mg tablet,delayed 40 mg PO QAM 08/17/18 04/23/24 History release prednisone 5 mg tablet 7.5 mg PO QAM 08/17/18 04/23/24 History folic acid 800 mcg tablet 2,000 mcg PO DAILY 09/26/18 04/23/24 History multivitamin 1 tab PO DAILY 08/05/22 04/23/24 History calcium carbonate 500 mg PO DAILY 12/06/23 04/23/24 History cetirizine 10 mg tablet 10 mg PO DAILY 12/06/23 04/23/24 History light mineral oil 1 %-mineral oil 1 drp ophthalmic (eye) BID PRN Dry 12/06/23 04/23/24 History 4.5 % eye drops (Soothe XP) Eye(S) melatonin 3 mg capsule 9 mg PO HS 12/06/23 04/23/24 History ondansetron 4 mg disintegrating 4 mg PO Q8H PRN Nausea And Vomiting 12/06/23 04/23/24 History tablet tramadol 50 mg tablet 50 mg PO Q6H PRN Pain 12/06/23 04/23/24 History methotrexate sodium 2.5 mg tablet 22.5 mg (9 x 2.5 mg) PO Lopez@0900 #0 12/09/23 04/23/24 Rx tabs polyethylene glycol 3350 17 gram 17 g PO BID #30 ea 12/09/23 04/23/24 Rx oral powder packet (Miralax) amiodarone 200 mg tablet 200 mg PO DAILY 04/23/24 04/23/24 History apixaban 2.5 mg tablet (Eliquis) 2.5 mg PO BID 04/23/24 04/23/24 History metoprolol succinate 25 mg 25 mg PO BID 04/23/24 04/23/24 History tablet,extended release 24 hr Allergies Allergy/AdvReac Type Severity Reaction Status Date / Time bee venom protein (honey bee) Allergy Intermediate BEE/WASP-NAUSEA Verified 12/06/23 14:19 AND DIZZINESS Penicillins Allergy Intermediate RASH (PER Verified 12/06/23 14:19 PT, WAS A LONG TIME AGO)AMOXICILLIN AND PCN amoxicillin [From Augmentin] Allergy Mild Unknown Verified 12/06/23 14:19 clavulanic acid Allergy Mild Unknown Verified 12/06/23 14:19 [From Augmentin] esomeprazole Allergy Mild NAUSEA Verified 12/06/23 14:19 VOMITING magnesium citrate Allergy Mild projectile Verified 12/06/23 14:19 vomitting antipyrine Allergy Unknown RASH AND Verified 12/06/23 14:19 BLISTERS benzocaine Allergy Unknown dental - Verified 12/06/23 14:19 tingling on tongue hydroxychloroquine Allergy Unknown UNKNOWN Verified 12/06/23 14:19 misoprostol Allergy Unknown UNKNOWN Verified 12/06/23 14:19 phenylephrine Allergy Unknown UNKNOWN Verified 12/06/23 14:19 pseudoephedrine Allergy Unknown UNKNOWN Verified 12/06/23 14:19 Serotonin 5HT-3 Antagonists Allergy Unknown UNKNOWN Verified 12/06/23 14:19 Sulfa (Sulfonamide Allergy Unknown UNKNOWN Verified 12/06/23 14:19 Antibiotics) citalopram AdvReac Mild GI UPSET Verified 12/06/23 14:19 clarithromycin AdvReac Mild GI UPSET Verified 12/06/23 14:19 denosumab [From Prolia] AdvReac Unknown Unknown Unverified 12/06/23 14:19 Past Med/Surg History Problem List (Updated 04/23/24 @ 19:31 by Bethel Bryant MD) Complete left bundle branch block (LBBB) (Acute) CHF (congestive heart failure) (Acute) Hypoxemia (Acute) Pneumonia (Acute) Atrial fibrillation Atrial fibrillation with rapid ventricular response Pneumonia (Acute) Leukocytosis (Acute) Hypoxia (Acute) SOB (shortness of breath) (Acute) Elevated troponin (Acute) Precordial chest pain (Acute) Left lower lobe pneumonia Mitral valve mass DVT prophylaxis Chronic kidney disease, stage 3a Thrombocytopenia COVID (Acute) Acute dehydration (Acute) Elevated troponin (Acute) Hypotension (Acute) Hypertension Hyperlipidemia GERD (gastroesophageal reflux disease) Anxiety Rheumatoid arthritis HOCM (hypertrophic obstructive cardiomyopathy) COVID Weakness (Acute) Heart valve disease Chronic diastolic heart failure Elevated troponin SVT (supraventricular tachycardia) Hypomagnesemia (Acute) Anemia Electrolyte abnormality DVT prophylaxis Sepsis Enteritis (Acute) GI bleed (Acute) Diarrhea (Acute) Vomiting (Acute) Acute dehydration (Acute) Encounter for pre-operative examination Chronic sinusitis Chronic otitis media of left ear Mitral valve prolapse (Chronic) IBS (irritable bowel syndrome) (Chronic) Diverticulitis (Chronic) Lumbar stenosis with neurogenic claudication (Chronic) Medical History Hypertrophic cardiomyopathy with LVOT and LEYDA PONV (postoperative nausea and vomiting) Lactose intolerance Osteoporosis Kidney stones passed on own Hiatal hernia HOCM (hypertrophic obstructive cardiomyopathy) Surgical History Hx of mastoidectomy History of lumbar spinal fusion History of tonsillectomy and adenoidectomy History of endoscopic sinus surgery History of cataract surgery right and left History of appendectomy Social History Smoking Status: Never smoker Second Hand Exposure: No; Do You Dip or Chew Tobacco: No; Hx Alcohol Use: No Hx Substance Use: No Preferred Language: Tuvaluan Communication Ability: Effective Visual Impairment: No Limitations [employer]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 Beliefs That Will Affect Care: None Current Living Situation: Spouse Current Living Situation Comment: clive Feels Safe at Home: Yes Assistive Devices: Cane, Glasses and Walker Review of Systems A total of 10 systems reviewed and were otherwise negative Physical Exam Vital Signs Vital Signs - 24 hr 04/23/24 15:30 04/23/24 15:30 04/23/24 15:47 Temperature 37.2 C Temperature Source Oral Pulse Rate 77 Pulse Rate [Apical] 74 Respiratory Rate 22 22 Respiratory Effort / Characteristics Non-Labored Non-Labored Respiratory Depth Normal Normal Blood Pressure 161/72 H Blood Pressure [Right Arm] Blood Pressure Mean 101 Blood Pressure Mean [Right Arm] Blood Pressure Position Lying Pulse Oximetry 75 L 95 Oxygen Delivery Method Room Air Nasal Cannula Nasal Cannula Oxygen Flow Rate 4 4 Sepsis Recent Fever Within 48 Hours Yes Sepsis New/Unexplained Change in Mental Status No Sepsis Action Taken by Nursing No Action Required 04/23/24 16:33 04/23/24 16:35 04/23/24 17:27 Temperature Temperature Source Pulse Rate 75 Pulse Rate [Apical] 72 70 Respiratory Rate 20 24 Respiratory Effort / Characteristics Non-Labored Spontaneous Non-Labored Spontaneous Respiratory Depth Normal Normal Blood Pressure Blood Pressure [Right Arm] 130/67 142/66 H Blood Pressure Mean Blood Pressure Mean [Right Arm] 88 91 Blood Pressure Position Pulse Oximetry 98 96 Oxygen Delivery Method Nasal Cannula Nasal Cannula Oxygen Flow Rate 4 4 Sepsis Recent Fever Within 48 Hours Sepsis New/Unexplained Change in Mental Status Sepsis Action Taken by Nursing 04/23/24 19:24 Temperature Temperature Source Pulse Rate Pulse Rate [Apical] 67 Respiratory Rate 20 Respiratory Effort / Characteristics Non-Labored Respiratory Depth Normal Blood Pressure Blood Pressure [Right Arm] 104/63 Blood Pressure Mean Blood Pressure Mean [Right Arm] 76 Blood Pressure Position Pulse Oximetry 96 Oxygen Delivery Method Room Air Oxygen Flow Rate Sepsis Recent Fever Within 48 Hours Sepsis New/Unexplained Change in Mental Status Sepsis Action Taken by Nursing General: Well developed well nourished [id number] older female who appears in no acute distress, breathing comfortably on room air. Normal speech, not muffled. Alert and orient x 3 answer all questions appropriately HEENT: Normal cephalic atraumatic. Pupils are equal round and reactive to light. Extraocular movements are intact. Oropharynx is pink with moist mucous membranes. No swelling of the mouth lips or tongue. Neck: Supple with a midline trachea. No meningeal signs or stiffness, no JVD or bruits. No Stridor. Chest: Clear to auscultation bilaterally. No wheezes or rhonchi. No increased work of breathing. Heart: Regular rate and rhythm without murmurs or gallops. Abdomen: Soft nontender, nondistended without rebound guarding or rigidity. Extremities: No cyanosis clubbing or edema. No calf tenderness or assymetry Spine/Back. Non tender to palpation. No CVA tenderness Skin: Good turgor without rashes. Neurologic exam: Cranial nerves two through 12 are intact. Motor and sensation are intact and symmetrical throughout. Course Administered Medications Discontinued Medications Ceftriaxone Sodium (Rocephin) 2,000 mg in 50 mls @ 100 mls/hr IV NOW STA Stop: 04/23/24 17:34 Last Infusion: 04/23/24 18:42 Dose: Infused Documented By: Admin: 04/23/24 17:30 Dose: 100 mls/hr Documented By: SANTI Medical Decision Making Differential Diagnosis Pneumonia, COVID, URI, sepsis, electrolyte or metabolic abnormality,, CHF, pneumothorax, arrhythmia, acute coronary syndrome, PE Medical Records Attestation: I reviewed the patient's medical records. Home Medications Current Medication List: was personally reviewed by nd Laboratory Data Attestation: I reviewed the patient's lab results. 04/23/24 15:30 04/23/24 15:30 Lab Results 04/23/24 04/23/24 04/23/24 Range/Units 15:30 15:30 15:30 WBC 11.39 H (4.8-10.8) K/ul RBC 4.14 L (4.20-5.40) M/uL Hgb 11.1 L (12.0-16.0) g/dl Hct 35.4 L (37.0-47.0) % MCV 85.5 (80.0-100.0) fL MCH 26.8 (25.0-34.0) pg MCHC 31.4 L (32.0-36.0) g/dL RDW Std Deviation 58.0 H (36.4-46.3) fL RDW Coeff of Matteo 19.1 H (11.5-14.5) % Plt Count 141 (130-400) K/uL MPV 11.7 (9.4-12.4) fL Immature Gran % (Auto) 0.6 % Neut % (Auto) 90.2 % Lymph % (Auto) 4.3 % Pike % (Auto) 4.5 % Eos % (Auto) 0.2 % Baso % (Auto) 0.2 % Neut # (Auto) 10.28 H (1.40-6.50) K/uL Lymph # (Auto) 0.49 L (1.20-3.40) K/uL Pike # (Auto) 0.51 (0.11-0.59) K/uL Eos # (Auto) 0.02 (0.00-0.50) K/uL Baso # (Auto) 0.02 (0.00-0.20) K/uL Immature Gran # (Auto) 0.07 (0.01-0.20) K/uL Polychromasia 1+ Sodium 132 L (136-145) mmol/L Potassium 3.7 (3.5-5.1) mmol/L Chloride 100 (98-107) mmol/L Carbon Dioxide 25 (21-32) mmol/L Anion Gap 7 (3-11) BUN 11 (6-23) mg/dl Creatinine 0.77 (0.6-1.2) mg/dl Est Cr Clr Drug Dosing 42.5 ml/min Est GFR ( Amer) 83.3 ml/min Est GFR (Non-Af Amer) 71.9 ml/min BUN/Creatinine Ratio 14.3 (10-20) Glucose 127 H (70-99(Fasting)) mg/dl Lactate (0.4-2.0) mmol/L Calcium 8.5 L (8.6-10.3) mg/dl Total Bilirubin 0.9 (0.2-1.0) mg/dl AST 24 (13-39) U/L ALT 21 (7-52) U/L Alkaline Phosphatase 57 (34-104) U/L Troponin I High Sens 23.1 H (0-14) pg/ml B-Natriuretic Peptide 618 H (0-100) pg/ml Total Protein 6.0 (6.0-8.3) gm/dl Albumin 3.7 (3.4-5.0) gm/dl Globulin 2.3 L (2.5-4.0) gm/dl Albumin/Globulin Ratio 1.6 (0.9-2) Procalcitonin 0.16 (0-0.5) ng/ml Urine Color Urine Appearance (Clear) Urine pH (4.5-7.5) Ur Specific [place] (1.000-1.030) Urine Protein (Negative) Urine Glucose (UA) (Negative) Urine Ketones (Negative) Urine Blood (Negative) Urine Nitrite (Negative) Urine Bilirubin (Negative) Urine Urobilinogen (Negative) Ur Leukocyte Esterase (Negative) Urine WBC (Auto) (0-5) /hpf Urine RBC (Auto) (0-2) /hpf U Hyaline Cast (Auto) (0-2) /lpf U Epithel Cells (Auto) (0-2) /hpf Urine Bacteria (Auto) (None Seen) Adenovirus (PCR) Not Detected (NotDetected) B. pertussis DNA (PCR) Not Detected (NotDetected) B.parapertussis DNA PCR Not Detected (NotDetected) C. pneumoniae DNA (PCR) Not Detected (NotDetected) Coronavirus OC43 (PCR) Not Detected (NotDetected) Coronavirus HKU1 (PCR) Not Detected (NotDetected) Coronavirus 229E (PCR) Not Detected (NotDetected) SARS-CoV-2 (PCR) NEGATIVE Not Detected (Negative) Coronavirus NL63 (PCR) Not Detected (NotDetected) Human Metapneumovir PCR Not Detected (NotDetected) Influenza Type A (PCR) Negative Not Detected (Neg) Influenza Type B (PCR) Negative (Neg) M. pneumoniae (PCR) (NotDetected) Parainfluenza 1 (PCR) (NotDetected) Parainfluenza 2 (PCR) (NotDetected) Parainfluenza 3 (PCR) (NotDetected) Parainfluenza 4 (PCR) (NotDetected) RSV (RT-PCR) (Neg) RSV (PCR) (NotDetected) Entero/Rhino (PCR) (NotDetected) 04/23/24 04/23/24 04/23/24 Range/Units 15:30 17:14 17:40 WBC (4.8-10.8) K/ul RBC (4.20-5.40) M/uL Hgb (12.0-16.0) g/dl Hct (37.0-47.0) % MCV (80.0-100.0) fL MCH (25.0-34.0) pg MCHC (32.0-36.0) g/dL RDW Std Deviation (36.4-46.3) fL RDW Coeff of Matteo (11.5-14.5) % Plt Count (130-400) K/uL MPV (9.4-12.4) fL Immature Gran % (Auto) % Neut % (Auto) % Lymph % (Auto) % Pike % (Auto) % Eos % (Auto) % Baso % (Auto) % Neut # (Auto) (1.40-6.50) K/uL Lymph # (Auto) (1.20-3.40) K/uL Pike # (Auto) (0.11-0.59) K/uL Eos # (Auto) (0.00-0.50) K/uL Baso # (Auto) (0.00-0.20) K/uL Immature Gran # (Auto) (0.01-0.20) K/uL Polychromasia Sodium (136-145) mmol/L Potassium (3.5-5.1) mmol/L Chloride (98-107) mmol/L Carbon Dioxide (21-32) mmol/L Anion Gap (3-11) BUN (6-23) mg/dl Creatinine (0.6-1.2) mg/dl Est Cr Clr Drug Dosing ml/min Est GFR ( Amer) ml/min Est GFR (Non-Af Amer) ml/min BUN/Creatinine Ratio (10-20) Glucose (70-99(Fasting)) mg/dl Lactate 0.9 (0.4-2.0) mmol/L Calcium (8.6-10.3) mg/dl Total Bilirubin (0.2-1.0) mg/dl AST (13-39) U/L ALT (7-52) U/L Alkaline Phosphatase (34-104) U/L Troponin I High Sens (0-14) pg/ml B-Natriuretic Peptide (0-100) pg/ml Total Protein (6.0-8.3) gm/dl Albumin (3.4-5.0) gm/dl Globulin (2.5-4.0) gm/dl Albumin/Globulin Ratio (0.9-2) Procalcitonin (0-0.5) ng/ml Urine Color Yellow Urine Appearance Cloudy A (Clear) Urine pH 7.5 (4.5-7.5) Ur Specific [place] 1.017 (1.000-1.030) Urine Protein 2+ H (Negative) Urine Glucose (UA) Negative (Negative) Urine Ketones Trace H (Negative) Urine Blood 3+ H (Negative) Urine Nitrite Negative (Negative) Urine Bilirubin Negative (Negative) Urine Urobilinogen Negative (Negative) Ur Leukocyte Esterase Trace H (Negative) Urine WBC (Auto) 6-10 H (0-5) /hpf Urine RBC (Auto) >20 H (0-2) /hpf U Hyaline Cast (Auto) 0-2 (0-2) /lpf U Epithel Cells (Auto) 0-2 (0-2) /hpf Urine Bacteria (Auto) None Seen (None Seen) Adenovirus (PCR) (NotDetected) B. pertussis DNA (PCR) (NotDetected) B.parapertussis DNA PCR (NotDetected) C. pneumoniae DNA (PCR) (NotDetected) Coronavirus OC43 (PCR) (NotDetected) Coronavirus HKU1 (PCR) (NotDetected) Coronavirus 229E (PCR) (NotDetected) SARS-CoV-2 (PCR) (Negative) Coronavirus NL63 (PCR) (NotDetected) Human Metapneumovir PCR (NotDetected) Influenza Type A (PCR) (Neg) Influenza Type B (PCR) Not Detected (Neg) M. pneumoniae (PCR) Not Detected (NotDetected) Parainfluenza 1 (PCR) Not Detected (NotDetected) Parainfluenza 2 (PCR) Not Detected (NotDetected) Parainfluenza 3 (PCR) Not Detected (NotDetected) Parainfluenza 4 (PCR) Not Detected (NotDetected) RSV (RT-PCR) Negative (Neg) RSV (PCR) Not Detected (NotDetected) Entero/Rhino (PCR) Not Detected (NotDetected) 04/23/24 Range/Units 18:21 WBC (4.8-10.8) K/ul RBC (4.20-5.40) M/uL Hgb (12.0-16.0) g/dl Hct (37.0-47.0) % MCV (80.0-100.0) fL MCH (25.0-34.0) pg MCHC (32.0-36.0) g/dL RDW Std Deviation (36.4-46.3) fL RDW Coeff of Matteo (11.5-14.5) % Plt Count (130-400) K/uL MPV (9.4-12.4) fL Immature Gran % (Auto) % Neut % (Auto) % Lymph % (Auto) % Pike % (Auto) % Eos % (Auto) % Baso % (Auto) % Neut # (Auto) (1.40-6.50) K/uL Lymph # (Auto) (1.20-3.40) K/uL Pike # (Auto) (0.11-0.59) K/uL Eos # (Auto) (0.00-0.50) K/uL Baso # (Auto) (0.00-0.20) K/uL Immature Gran # (Auto) (0.01-0.20) K/uL Polychromasia Sodium (136-145) mmol/L Potassium (3.5-5.1) mmol/L Chloride (98-107) mmol/L Carbon Dioxide (21-32) mmol/L Anion Gap (3-11) BUN (6-23) mg/dl Creatinine (0.6-1.2) mg/dl Est Cr Clr Drug Dosing ml/min Est GFR ( Amer) ml/min Est GFR (Non-Af Amer) ml/min BUN/Creatinine Ratio (10-20) Glucose (70-99(Fasting)) mg/dl Lactate (0.4-2.0) mmol/L Calcium (8.6-10.3) mg/dl Total Bilirubin (0.2-1.0) mg/dl AST (13-39) U/L ALT (7-52) U/L Alkaline Phosphatase (34-104) U/L Troponin I High Sens 25.9 H (0-14) pg/ml B-Natriuretic Peptide (0-100) pg/ml Total Protein (6.0-8.3) gm/dl Albumin (3.4-5.0) gm/dl Globulin (2.5-4.0) gm/dl Albumin/Globulin Ratio (0.9-2) Procalcitonin (0-0.5) ng/ml Urine Color Urine Appearance (Clear) Urine pH (4.5-7.5) Ur Specific [place] (1.000-1.030) Urine Protein (Negative) Urine Glucose (UA) (Negative) Urine Ketones (Negative) Urine Blood (Negative) Urine Nitrite (Negative) Urine Bilirubin (Negative) Urine Urobilinogen (Negative) Ur Leukocyte Esterase (Negative) Urine WBC (Auto) (0-5) /hpf Urine RBC (Auto) (0-2) /hpf U Hyaline Cast (Auto) (0-2) /lpf U Epithel Cells (Auto) (0-2) /hpf Urine Bacteria (Auto) (None Seen) Adenovirus (PCR) (NotDetected) B. pertussis DNA (PCR) (NotDetected) B.parapertussis DNA PCR (NotDetected) C. pneumoniae DNA (PCR) (NotDetected) Coronavirus OC43 (PCR) (NotDetected) Coronavirus HKU1 (PCR) (NotDetected) Coronavirus 229E (PCR) (NotDetected) SARS-CoV-2 (PCR) (Negative) Coronavirus NL63 (PCR) (NotDetected) Human Metapneumovir PCR (NotDetected) Influenza Type A (PCR) (Neg) Influenza Type B (PCR) (Neg) M. pneumoniae (PCR) (NotDetected) Parainfluenza 1 (PCR) (NotDetected) Parainfluenza 2 (PCR) (NotDetected) Parainfluenza 3 (PCR) (NotDetected) Parainfluenza 4 (PCR) (NotDetected) RSV (RT-PCR) (Neg) RSV (PCR) (NotDetected) Entero/Rhino (PCR) (NotDetected) Imaging Data Attestation: I personally reviewed and interpreted this imaging study as follows: My Impression: Chest x-raythere is cardiomegaly with some increased interstitial markings possible from CHF. Radiologist's Impression: Chest X-Ray 04/23/24 15:34 XR chest 1V portable CLINICAL HISTORY: hypoxia COMPARISON STUDY: Chest radiograph December 06, 2023. FINDINGS: S-shaped scoliosis of the thoracic spine is incidentally noted. There is no pneumothorax. A small left pleural effusion has decreased since prior exam. Left basilar opacity has improved. There is mild interstitial thickening. Linear bibasilar densities favor atelectasis. Mild cardiomegaly is unchanged. IMPRESSION: 1. Cardiomegaly. Mild interstitial thickening suggestive of pulmonary edema. 2. Interval decrease in left basilar opacity and a small left pleural effusion since prior exam. ACT 112: Negative or not required by law. Electronically signed by: Francois Robbins M.D. 04/23/2024 4:24 PM ECG Data Attestation: I personally reviewed and interpreted this ECG as follows: Indication: + chest pain Rate (beats per minute): 72 Rhythm: + normal sinus ECG Intervals/blocks: + Left bundle branch block, + Normal QT and + Normal ME ECG [place]: + Normal ECG ST segments: + Normal ST segments ECG Findings: no PACs or no PVCs Comparison ECG Date: from (12/27/23) Change: no significant change MDM Narrative This patient comes in described above she has a fever and a low oxygen saturation. She looks well at present on supplemental oxygen. She has had a cough and bodyaches and there may have been exposure to COVID. Her initial COVID test here was negative. I did order [employer] to also look for other pathogens her chest x-ray shows cardiomegaly some increased interstitial markings which may be related to fluid he could also be an atypical infection. Her white count is elevated 11 , she does have multiple allergies but looking through her chart she has had Rocephin before give her Rocephin 2 g IV. EKG shows a baseline left bundle branch block. Her bio fire was negative. I do think she needs to be admitted for further treatment and evaluation of discussed the case at length with the on-call [facility] hospitalist team Continuous cardiac monitoring: Orders placed in EMR for continuous cardiac monitoring: Upon evaluation patient was noted to be in normal sinus rhythm with a rate of 70 and a left bundle branch block. Impression & Plan Pneumonia, Hypoxemia, CHF (congestive heart failure), Complete left bundle branch block (LBBB) Discharge Plan Visit Data Chief Complaint: Illness ED Provider: Bethel Bryant Discharge Problem: Pneumonia, Hypoxemia, CHF (congestive heart failure), Complete left bundle branch block (LBBB) Forms Stand Alone Forms: My [facility] Prescriptions Prescriptions: No Action atorvastatin 10 mg Tablet 10 mg PO HS prednisone 5 mg Tablet 7.5 mg PO QAM Rx Instructions: 1 & 1/2 tablet aspirin 81 mg Tablet,Delayed Release (Dr/Ec) 81 mg PO QAM acetaminophen [Tylenol Extra Strength] 500 mg Tablet 1,000 mg PO Q8H PRN (Reason: Pain) lorazepam 0.5 mg Tablet 0.5 mg PO HS pantoprazole 40 mg Tablet,Delayed Release (Dr/Ec) 40 mg PO QAM cholecalciferol (vitamin D3) [Vitamin D3] 1,000 unit Capsule 1,000 unit PO QAM Calcium 600 + D(3) 600 mg calcium- 200 unit Capsule 1 tab PO QAM fluticasone propionate 50 mcg/actuation [place],Suspension 2 spray INTRANASAL QAM folic acid 800 mcg Tablet 2,000 mcg PO DAILY Rx Instructions: TAKES 2 1/2 TABS. multivitamin Tablet 1 tab PO DAILY amiodarone 200 mg tablet 200 mg PO DAILY metoprolol succinate 25 mg tablet extended release 24 hr 25 mg PO BID Eliquis 2.5 mg tablet 2.5 mg PO BID cetirizine 10 mg Tablet 10 mg PO DAILY tramadol 50 mg tablet 50 mg PO Q6H PRN (Reason: Pain) calcium carbonate 500 mg calcium (1,250 mg) Tablet 500 mg PO DAILY ondansetron 4 mg Tablet,Disintegrating 4 mg PO Q8H PRN (Reason: Nausea And Vomiting) Soothe XP 1-4.5 % Drops 1 drp OPHTHALMIC (EYE) BID PRN (Reason: Dry Eye(S)) melatonin 3 mg Capsule 9 mg PO HS polyethylene glycol 3350 [Miralax] 17 gram Powder In Packet 17 g PO BID Qty: 30 0RF methotrexate sodium 2.5 mg Tablet 22.5 mg PO Lopez@0900 Qty: 0 0RF Referrals Referrals: Aaron Wolf MD [Primary Care Provider] - Discharge Problem: Pneumonia Qualifiers: Pneumonia type: due to unspecified organism Laterality: unspecified laterality Lung location: unspecified part of lung Qualified Code(s): J18.9 - Pneumonia, unspecified organism CHF (congestive heart failure) Qualifiers: Heart failure type: unspecified Heart failure chronicity: unspecified Qualified Code(s): I50.9 - Heart failure, unspecified
[2024-04-23] MEDS: cefTRIAXone SODIUM 2,000 MG/50 ML BAG IV STA (17:30)
[2024-04-23 17:35] LABS: Troponin I High Sensitivity 23.1 pg/ml (0-14)
[2024-04-23 17:56] LABS: Appearance Urine Cloudy (Clear); Bacteria Urine Automated None Seen (None Seen); Bilirubin Urine Negative (Negative); Blood Urine 3+ (Negative); Cast Urine Automated 0-2 /lpf (0-2); Color Urine Yellow; Epithelial Cell Urine Auto 0-2 /hpf (0-2); Glucose Urine UA Negative (Negative); Ketones Urine Trace (Negative); Leukocyte Esterase Urine Trace (Negative); Nitrite Urine Negative (Negative); Protein Urine 2+ (Negative); RBC Urine Automated >20 /hpf (0-2); Specific Gravity Urine 1.017 (1.000-1.030); Urobilinogen Urine Negative (Negative); pH Urine 7.5 (4.5-7.5)
[2024-04-23 18:01] LABS: Adenovirus PCR Not Detected (NotDetected); Bordetella parapertussis PCR Not Detected (NotDetected); Bordetella pertussis PCR Not Detected (NotDetected); Chlamydia pneumoniae PCR Not Detected (NotDetected); Coronavirus 229E PCR Not Detected (NotDetected); Coronavirus CoV-2 (COVID19)PCR Not Detected (NotDetected); Coronavirus HKU1 PCR Not Detected (NotDetected); Coronavirus NL63 PCR Not Detected (NotDetected); Coronavirus OC43PCR Not Detected (NotDetected); Human Metapneumovirus PCR Not Detected (NotDetected); Influenza A PCR Not Detected (NotDetected); Influenza B PCR Not Detected (NotDetected); Mycoplasma pneumoniae PCR Not Detected (NotDetected); Parainfluenza Virus 1 PCR Not Detected (NotDetected); Parainfluenza Virus 2 PCR Not Detected (NotDetected); Parainfluenza Virus 3 PCR Not Detected (NotDetected); Parainfluenza Virus 4 PCR Not Detected (NotDetected); Respiratory Syncytial VirusPCR Not Detected (NotDetected); Rhinovirus/Enterovirus PCR Not Detected (NotDetected)
--- NOTE | 2024-04-23 18:15 | History & Physical Report ---
Date of Service April 23, 2024 Assessment & Plan (1) Hypoxia: Plan: Admit to med/tele on pulse oximetry Currently stable on 2 L nasal cannula and otherwise stable Presented to the ED with multiple vague complaints including nausea without vomiting, generalized weakness, shortness of breath Reportedly hypoxic in the 70s on room air on EMS arrival, I did try and wean the patient to room air during my exam but she required 2 L nasal cannula to stay stable Patient with mild volume overload on exam but no sign of consolidation to suggest pneumonia at this time, full respiratory BioFire is negative BNP is elevated at 618, this is improved compared to last admission in November when it was elevated at 1299 Suspect her hypoxia is being driven by mild volume overload and generalized weakness causing low lung volumes Patient was given a dose of ceftriaxone in the ED for possible pneumonia Will hold diuresis at this time due to patient's history of HOCM and high risk for hemodynamic instability as she is currently stable and no respiratory distress Will obtain for procalcitonin further evaluation Incentive spirometry, as needed O2 to keep SpO2 at or above 92% Will continue with empiric ceftriaxone at this time to cover possible UTI versus pneumonia Follow urine and blood cultures Home Eliquis for DVT prophylaxis Heart healthy diet with 2 g sodium and 2 L fluid restriction AM CBC, CMP, mag, PT/INR (2) Leukocytosis: Plan: Patient noted to have a leukocytosis of 13 with neutrophil predominance of 10 Was reportedly febrile at the [facility] with temp of 101.8F Most likely sources of possible infection at this time are UTI with recent increased urinary frequency and UA with signs of possible infection and possible pneumonia Full respiratory BioFire is negative, no recent diarrhea, no signs of skin infection Patient is high risk for infection as she is on chronic methotrexate and prednisone due to rheumatoid arthritis Was given a dose of ceftriaxone in the ED prior to admission Stat blood culture and urine culture were obtained at the time of admission, continue to follow Will add procalcitonin for further evaluation Will continue ceftriaxone for now until infectious workup is complete Continue monitor fever curve (3) Atrial fibrillation: Plan: Currently in normal sinus rhythm Continue Eliquis, amiodarone, and metoprolol (4) Elevated troponin: Plan: Initial high-sensitivity troponin elevated at 23 Patient denies chest pain, no acute ST segment or T wave changes on ECG Likely due to demand Follow-up 2-hour repeat high-sensitivity troponin, continue to monitor on telemetry (5) HOCM (hypertrophic obstructive cardiomyopathy): Plan: Patient with known history of HOCM Monitor volume status closely moving forward, avoid dehydration Holding diuresis for now to avoid hypotension (6) Rheumatoid arthritis: Plan: Is on chronic methotrexate and prednisone Will hold methotrexate for now with possible infection Continue 7.5 mg prednisone daily for now to avoid deficiency (7) Sinusitis: (8) Pneumonia: Plan The patient was discussed with Dr. Jasso at the time of the admission History of Present Illness Chief Complaint: Fever, generalized weakness, upper respiratory symptoms Primary Care Provider: Aaron Wolf MD Vane is an 83-year-old female with PMH of HOCM, atrial fibrillation (on Eliquis), HFpEF, HTN, HLD, CKD stage IIIa, GI bleed, and rheumatoid arthritis who presented to the [facility] ED via EMS on 04/23/2024 from the [facility] due to generalized weakness, fever, and nausea.. Per the ED, multiple residents of the [facility] have recently tested positive for COVID-19. Patient was noted to be hypoxic on EMS arrival at 70% on room air, however, she remained stable on room air in the ED and was otherwise stable. Labs were significant for a leukocytosis of 11 with neutrophil predominance of 10, sodium of 132, initial high-sensitivity troponin of 23, BNP of 618 (down from 1299 as of 12/06/2023), full respiratory BioFire negative, and UA with 6-10 WBC, greater than 20 RBC, trace leukocyte esterase, 3+ blood, cloudy appearance, 2+ protein. Chest x-ray was read as cardiomegaly with mild interstitial thickening suggestive of pulmonary edema. Interval decrease in left basilar opacity and a small left pleural effusion since prior exam. Prior to admission the patient was given 22 g ceftriaxone. Patient was sitting in bed no acute distress at the time of exam. States t hat over the past 3 to 4 days she has been experiencing generalized weakness, nausea with poor oral intake, mild shortness of breath with a nonproductive cough, increased urinary frequency, and fever. Denies recent chest pain abdominal pain, vomiting, diarrhea, lower extremity swelling, and recent swelling. States that she feels mildly improved compared to arrival but still weaker than her baseline. We discussed CODE STATUS, she wishes to be a DNR/DNI. Please refer to Dr. Jasso's attestation for any changes to the treatment plan Allergies Allergy/AdvReac Type Severity Reaction Status Date / Time bee venom protein (honey bee) Allergy Intermediate BEE/WASP-NAUSEA Verified 12/06/23 14:19 AND DIZZINESS Penicillins Allergy Intermediate RASH (PER Verified 12/06/23 14:19 PT, WAS A LONG TIME AGO)AMOXICILLIN AND PCN amoxicillin [From Augmentin] Allergy Mild Unknown Verified 12/06/23 14:19 clavulanic acid Allergy Mild Unknown Verified 12/06/23 14:19 [From Augmentin] esomeprazole Allergy Mild NAUSEA Verified 12/06/23 14:19 VOMITING magnesium citrate Allergy Mild projectile Verified 12/06/23 14:19 vomitting antipyrine Allergy Unknown RASH AND Verified 12/06/23 14:19 BLISTERS benzocaine Allergy Unknown dental - Verified 12/06/23 14:19 tingling on tongue hydroxychloroquine Allergy Unknown UNKNOWN Verified 12/06/23 14:19 misoprostol Allergy Unknown UNKNOWN Verified 12/06/23 14:19 phenylephrine Allergy Unknown UNKNOWN Verified 12/06/23 14:19 pseudoephedrine Allergy Unknown UNKNOWN Verified 12/06/23 14:19 Serotonin 5HT-3 Antagonists Allergy Unknown UNKNOWN Verified 12/06/23 14:19 Sulfa (Sulfonamide Allergy Unknown UNKNOWN Verified 12/06/23 14:19 Antibiotics) citalopram AdvReac Mild GI UPSET Verified 12/06/23 14:19 clarithromycin AdvReac Mild GI UPSET Verified 12/06/23 14:19 denosumab [From Prolia] AdvReac Unknown Unknown Unverified 12/06/23 14:19 Home Medications Medication Instructions Recorded Confirmed Type acetaminophen 500 mg tablet 1,000 mg PO Q8H PRN Pain 08/17/18 04/23/24 History (Tylenol Extra Strength) aspirin 81 mg tablet,delayed 81 mg PO QAM 08/17/18 04/23/24 History release atorvastatin 10 mg tablet 10 mg PO HS 08/17/18 04/23/24 History calcium carbonate 600 mg-vitamin 1 tab PO QAM 08/17/18 04/23/24 History D3 5 mcg (200 unit) capsule (Calcium 600 + D(3)) cholecalciferol (vitamin D3) 25 1,000 unit PO QAM 08/17/18 04/23/24 History mcg (1,000 unit) capsule (Vitamin D3) fluticasone propionate 50 2 spray intranasal QAM 08/17/18 04/23/24 History mcg/actuation nasal spray,suspension lorazepam 0.5 mg tablet 0.5 mg PO HS 08/17/18 04/23/24 History pantoprazole 40 mg tablet,delayed 40 mg PO QAM 08/17/18 04/23/24 History release prednisone 5 mg tablet 7.5 mg PO QAM 08/17/18 04/23/24 History folic acid 800 mcg tablet 2,000 mcg PO DAILY 09/26/18 04/23/24 History multivitamin 1 tab PO DAILY 08/05/22 04/23/24 History calcium carbonate 500 mg PO DAILY 12/06/23 04/23/24 History cetirizine 10 mg tablet 10 mg PO DAILY 12/06/23 04/23/24 History light mineral oil 1 %-mineral oil 1 drp ophthalmic (eye) BID PRN Dry 12/06/23 04/23/24 History 4.5 % eye drops (Soothe XP) Eye(S) melatonin 3 mg capsule 9 mg PO HS 12/06/23 04/23/24 History ondansetron 4 mg disintegrating 4 mg PO Q8H PRN Nausea And Vomiting 12/06/23 04/23/24 History tablet tramadol 50 mg tablet 50 mg PO Q6H PRN Pain 12/06/23 04/23/24 History methotrexate sodium 2.5 mg tablet 22.5 mg (9 x 2.5 mg) PO Lopez@0900 #0 12/09/23 04/23/24 Rx tabs polyethylene glycol 3350 17 gram 17 g PO BID #30 ea 12/09/23 04/23/24 Rx oral powder packet (Miralax) amiodarone 200 mg tablet 200 mg PO DAILY 04/23/24 04/23/24 History apixaban 2.5 mg tablet (Eliquis) 2.5 mg PO BID 04/23/24 04/23/24 History metoprolol succinate 25 mg 25 mg PO BID 04/23/24 04/23/24 History tablet,extended release 24 hr Past Med/Surg History Problem List (Updated 04/24/24 @ 08:59 by Dale Jasso MD) Sinusitis Complete left bundle branch block (LBBB) (Acute) CHF (congestive heart failure) (Acute) Hypoxemia (Acute) Pneumonia (Acute) Atrial fibrillation Atrial fibrillation with rapid ventricular response Pneumonia (Acute) Leukocytosis (Acute) Hypoxia (Acute) SOB (shortness of breath) (Acute) Elevated troponin (Acute) Precordial chest pain (Acute) Left lower lobe pneumonia Mitral valve mass DVT prophylaxis Chronic kidney disease, stage 3a Thrombocytopenia COVID (Acute) Acute dehydration (Acute) Elevated troponin (Acute) Hypotension (Acute) Hypertension Hyperlipidemia GERD (gastroesophageal reflux disease) Anxiety Rheumatoid arthritis HOCM (hypertrophic obstructive cardiomyopathy) COVID Weakness (Acute) Heart valve disease Chronic diastolic heart failure Elevated troponin SVT (supraventricular tachycardia) Hypomagnesemia (Acute) Anemia Electrolyte abnormality DVT prophylaxis Sepsis Enteritis (Acute) GI bleed (Acute) Diarrhea (Acute) Vomiting (Acute) Acute dehydration (Acute) Encounter for pre-operative examination Chronic sinusitis Chronic otitis media of left ear Mitral valve prolapse (Chronic) IBS (irritable bowel syndrome) (Chronic) Diverticulitis (Chronic) Lumbar stenosis with neurogenic claudication (Chronic) Medical History Hypertrophic cardiomyopathy with LVOT and LEYDA PONV (postoperative nausea and vomiting) Lactose intolerance Osteoporosis Kidney stones passed on own Hiatal hernia HOCM (hypertrophic obstructive cardiomyopathy) Surgical History Hx of mastoidectomy History of lumbar spinal fusion History of tonsillectomy and adenoidectomy History of endoscopic sinus surgery History of cataract surgery right and left History of appendectomy Social History Smoking Status: Never smoker Second Hand Exposure: No; Do You Dip or Chew Tobacco: No; Hx Alcohol Use: No Hx Substance Use: No Preferred Language: Yoruba Communication Ability: Effective Visual Impairment: No Limitations Mechanism Assembler Required: No Beliefs That Will Affect Care: None Current Living Situation: Personal Care Facility Current Living Situation Comment[facility] Other Information That Helps Us Care for You: No Feels Safe at Home: Yes Safety Concerns: Feels Safe At This Time Assistive Devices: Cane, Denture - Lower, Glasses, Oxygen - Continuous and Walker Assistive Devices Comment: lower partial, Physical Exam Physical Exam: Physical Exam: General: In no acute distress, stated age, chronically ill-appearing but nontoxic HEENT: Normocephalic, atraumatic, no scleral icterus, pupils around round, symmetrical, and reactive to light, moist mucus membranes, trachea midline, no thyromegaly Chest/Pulm: No respiratory distress, small lung volumes due to chronic chest deformity, symmetrical chest expansion, scattered crackles Cardiac: RRR, 5/6 systolic murmur noted Abdomen: Negative for ascites and bruising, normoactive bowel sounds, soft, Minimally tender to palpation in the suprapubic region Musculoskeletal: Symmetrical and without signs of acute trauma, upper and lower extremities with full ROM, no atrophy, spasticity, or flaccidity Extremities: Radial, dorsalis pedis, and posterior tibial pulses are intact and symmetrical, no edema noted in the BL LE's Skin: Warm, dry, no rashes , lesions, or scars noted Neuro: Alert and oriented to person, place, month, year, and president, no focal defects, no tremors noted Psych: No acute distress, calm and cooperative during the exam Results & Data Results & Data Vital Signs (Past 12 Hours) Vital Signs Temp Pulse Pulse Resp BP BP Pulse Ox 04/23/24 17:27 70 24 142/66 H 96 04/23/24 16:35 72 20 130/67 98 04/23/24 16:33 75 04/23/24 15:47 04/23/24 15:30 74 22 95 04/23/24 15:30 37.2 C 77 22 161/72 H 75 L O2 Del Method O2 Flow Rate 04/23/24 17:27 Room Air 04/23/24 16:35 Nasal Cannula 4 04/23/24 16:33 04/23/24 15:47 Nasal Cannula 4 04/23/24 15:30 Nasal Cannula 4 04/23/24 15:30 Room Air Laboratory Results Abnormal lab results 04/23/24 04/23/24 Range/Units 15:30 17:40 WBC 11.39 H (4.8-10.8) K/ul RBC 4.14 L (4.20-5.40) M/uL Hgb 11.1 L (12.0-16.0) g/dl Hct 35.4 L (37.0-47.0) % MCHC 31.4 L (32.0-36.0) g/dL RDW Std Deviation 58.0 H (36.4-46.3) fL RDW Coeff of Matteo 19.1 H (11.5-14.5) % Neut # (Auto) 10.28 H (1.40-6.50) K/uL Lymph # (Auto) 0.49 L (1.20-3.40) K/uL Sodium 132 L (136-145) mmol/L Glucose 127 H (70-99(Fasting)) mg/dl Calcium 8.5 L (8.6-10.3) mg/dl Troponin I High Sens 23.1 H (0-14) pg/ml B-Natriuretic Peptide 618 H (0-100) pg/ml Globulin 2.3 L (2.5-4.0) gm/dl Urine Appearance Cloudy A (Clear) Urine Protein 2+ H (Negative) Urine Ketones Trace H (Negative) Urine Blood 3+ H (Negative) Ur Leukocyte Esterase Trace H (Negative) Urine WBC (Auto) 6-10 H (0-5) /hpf Urine RBC (Auto) >20 H (0-2) /hpf Diagnostic Findings Chest X-Ray 04/23/24 15:34 XR chest 1V portable CLINICAL HISTORY: hypoxia COMPARISON STUDY: Chest radiograph December 06, 2023. FINDINGS: S-shaped scoliosis of the thoracic spine is incidentally noted. There is no pneumothorax. A small left pleural effusion has decreased since prior exam. Left basilar opacity has improved. There is mild interstitial thickening. Linear bibasilar densities favor atelectasis. Mild cardiomegaly is unchanged. IMPRESSION: 1. Cardiomegaly. Mild interstitial thickening suggestive of pulmonary edema. 2. Interval decrease in left basilar opacity and a small left pleural effusion since prior exam. ACT 112: Negative or not required by law. Electronically signed by: Francois Robbins M.D. 04/23/2024 4:24 PM Code Status & VTE Plan Code Status DNR/DNI VTE Prophylaxis Plan VTE Prophylaxis will be ordered: Yes Supervising Physician Co-Signing Physician Notes I personally saw and examined the patient. I verified all kelly points and agree with Julio Bowen PA-C with the following exceptions and/or additions: 83 year old female presents to the ER due to fever, generalized weakness, nausea. 3-4 days of worsening symptoms although possible going on for longer 2 weeks. O/E HS RRR, no murmurs, no respiratory distress, Chest left basal crackles, Abdo SNT, no extremity unilateral weakness A/P Suspect sinuitis +/- pneumonia - CXR appear improved to prior although she had a LLL pneumonia. Add doxycycline to ceftriaxone. PG Care Time/CCT Total # of Minutes Spent Total Time Spent with Patient: Total time spent is greater than 50% in coordination of care (as documented) at patient's floor/unit and/or counseling patient: C[place] [address] INT INP/OBS CARE 3/75MIN Patient Type Established Medical Decision Making High Complexity Diagnoses Hypoxia R09.02 Leukocytosis D72.829 Leukocytosis type: unspecified Atrial fibrillation I48.91 Elevated troponin R74.8 HOCM (hypertrophic obstructive cardiomyopathy) I42.1 Rheumatoid arthritis M06.9 Sinusitis J32.9 Pneumonia J18.9 Laterality: unspecified laterality Lung location: unspecified part of lung Pneumonia type: due to unspecified organism (2) Leukocytosis Leukocytosis type: unspecified Qualified Code(s): D72.829 - Elevated white blood cell count, unspecified (8) Pneumonia Laterality: unspecified laterality Lung location: unspecified part of lung Pneumonia type: due to unspecified organism Qualified Code(s): J18.9 - Pneumonia, unspecified organism
[2024-04-23 19:09] LABS: Troponin I High Sensitivity 25.9 pg/ml (0-14)
[2024-04-23] MEDS ORDERED: LORazepam 0.5 MG TAB PO PRN (20:50)
[2024-04-23] MEDS ORDERED: traMADol HCL 50 MG TABLET PO PRN (20:50)
[2024-04-23] MEDS: MELATONIN 3 MG TAB PO SCH (22:48)
[2024-04-23] MEDS: ATORVASTATIN 10 MG TAB PO SCH (22:49)
[2024-04-23] MEDS: ACETAMINOPHEN 500 MG TAB PO STA (22:49)
[2024-04-23] MEDS: METOPROLOL SUCC 25MG EXT REL TAB PO SCH (22:49)
[2024-04-23] MEDS: APIXABAN 2.5 MG TAB PO SCH (22:49)
[2024-04-23] MEDS: DOXYCYCLINE HYCLATE 100 MG in DEXTROSE 5% MINI-B 100 ML IV SCH (23:07)
[2024-04-24] MEDS: PANTOprazole 40 MG TAB PO SCH (07:30)
[2024-04-24] MEDS: AMIODARONE 200 MG TAB PO SCH (07:30)
[2024-04-24] MEDS: predniSONE 2.5 MG TAB PO SCH (07:30)
[2024-04-24] MEDS: ASPIRIN 81 MG ECTAB PO SCH (07:31)
[2024-04-24 07:45] LABS: Basophils # (auto) 0.02 K/uL (0.00-0.20); Basophils % (auto) 0.2 %; Eosinophils # (auto) 0.34 K/uL (0.00-0.50); Eosinophils % (auto) 3.6 %; Hematocrit (blood only) 34.1 % (37.0-47.0); Hemoglobin 10.6 g/dl (12.0-16.0); Immature Granulocytes # (auto) 0.04 K/uL (0.01-0.20); Immature Granulocytes % (auto) 0.4 %; Lymphocytes # (auto) 0.66 K/uL (1.20-3.40); Mean Corpuscular Hemoglobin 26.6 pg (25.0-34.0); Mean Corpuscular Hgb Conc 31.1 g/dL (32.0-36.0); Mean Corpuscular Volume 85.7 fL (80.0-100.0); Mean Platelet Volume 10.6 fL (9.4-12.4); Monocytes # (auto) 1.13 K/uL (0.11-0.59); Neutrophils # (auto) 7.26 K/uL (1.40-6.50); Neutrophils % (auto) 76.8 %; Platelet Count 136 K/uL (130-400); RDW Coefficient of Variation 18.9 % (11.5-14.5); RDW Standard Deviation 57.5 fL (36.4-46.3); Red Blood Count 3.98 M/uL (4.20-5.40); White Blood Count 9.45 K/ul (4.8-10.8)
[2024-04-24 07:50] LABS: Albumin Globulin Ratio 1.6 (0.9-2); Albumin Level 3.5 gm/dl (3.4-5.0); BUN Creatinine Ratio 17.8 (10-20); Bilirubin,Total 0.6 mg/dl (0.2-1.0); Calcium 8.7 mg/dl (8.6-10.3); Creatinine Clr Calc Pharmacy 43.1 ml/min; Est GFR (African American) 88.9 ml/min; Est GFR (Non-African American) 76.7 ml/min; Globulin 2.2 gm/dl (2.5-4.0); Magnesium 1.7 mg/dl (1.7-2.4); Potassium 3.5 mmol/L (3.5-5.1); Total Protein 5.7 gm/dl (6.0-8.3)
[2024-04-24 08:01] LABS: INR 1.2 (0.9-1.1); Prothrombin Time 13.3 Seconds (9.0-12.0)
[2024-04-24] MEDS: POTASSIUM CHLORIDE 10 MEQ TABCR PO SCH (08:46)
[2024-04-24] MEDS: ACETAMINOPHEN 325 MG TAB PO PRN (08:46)
[2024-04-24] MEDS: FUROSEMIDE 40 MG/4 ML VIAL IV SCH (08:47)
--- NOTE | 2024-04-24 16:50 | Hospitalist Progress Note ---
Date of Service April 24, 2024 Assessment & Plan (1) Hypoxia: Plan: Presented to the ED with multiple vague complaints including nausea without vomiting, generalized weakness, shortness of breath Respiratory bio fire negative Urine culture: pending Blood culture: pending CXR: cardiomegaly with pulmonary edema. Left basilar opacity has improved. - patient was started on ceftriaxone in the ED, doxycycline was added for pneumonia coverage. However both these were stopped on 04/24 by my attending - Pro-Neel negative - Plan for repeat chest x-ray a.m. of 04/25 BNP elevation/SOB - initiated on lasix IV 40mg BID Incentive spirometry, as needed O2 to keep SpO2 at or above 90% (2) Leukocytosis: Plan: Patient noted to have a leukocytosis of 13 with neutrophil predominance of 10 on admission, and was reportedly febrile at the [facility] with temp of 101.8F Full respiratory BioFire is negative, no recent diarrhea, no signs of skin infection Patient is high risk for infection as she is on chronic methotrexate and prednisone due to rheumatoid arthritis Antibiotics stopped by my attending, will continue to trend CBC/CRP and fever curve. Urine and blood cultures are pending. (3) Elevated troponin: Plan: Initial high-sensitivity troponin elevated at 23, repeat 25 Patient denies chest pain, no acute ST segment or T wave changes on ECG Likely due to demand No acute events on tele (4) HOCM (hypertrophic obstructive cardiomyopathy): Plan: Patient with known history of HOCM Monitor volume status closely moving forward, avoid dehydration (5) Rheumatoid arthritis: Plan: On chronic methotrexate and prednisone Will hold methotrexate for now with possible infection Continue 7.5 mg prednisone daily for now to avoid deficiency Plan Chronic stable medical conditions: * A-fib: Currently in sinus rhythm, continue metoprolol amiodarone and Eliquis DVT prophy: Home Eliquis Dispo: Continued inpatient stay, weaning oxygen Admission and Anticipated Discharge Date Admission Date: April 23, 2024 Supervising Physician Co-Signing Physician Notes The patient was not seen by me. The chart was reviewed. Case discussed with JENNY Solis. Agree with assessment and plan Subjective patient seen this morning, shortly after breakfast resting in bed. States that she does feel better when she came in. Does not feel short of breath at rest but has not been moving around too much denies cough. Does report fevers and chills at home SR ICVD 50-60s Review of Systems Review of Systems: All systems reviewed & are unremarkable except as noted in Subjective Physical Exam Physical Exam: General: NAD, VS as above Resp: normal respiratory effort, crackles in the bases, no wheezing CV: RRR, + murmur, Abd: normal bowel sounds, non tender, no hepatosplenomegaly Extremities: Moves all extremities, no edema Neuro: A&O x3, Skin: intact, no lesions noted Results & Data Results & Data Vital Signs (Past 12 Hours) Vital Signs Temp Pulse Pulse Resp BP BP Pulse Ox 04/24/24 16:15 98.4 F 52 L 17 121/62 94 04/24/24 15:15 92 04/24/24 14:16 66 04/24/24 11:54 98.4 F 61 17 97/59 L 96 04/24/24 08:21 04/24/24 07:53 97.7 F 61 17 139/65 96 04/24/24 07:03 56 L O2 Del Method O2 Flow Rate 04/24/24 16:15 Nasal Cannula 2 04/24/24 15:15 04/24/24 14:16 04/24/24 11:54 Nasal Cannula 2 04/24/24 08:21 Nasal Cannula 2 04/24/24 07:53 Nasal Cannula 2 04/24/24 07:03 Laboratory Results CBC and chemistry reviewed blood culture reviewed PG Care Time/CCT Total # of Minutes Spent Total Time Spent with Patient: Total time spent is greater than 50% in coordination of care (as documented) at patient's floor/unit and/or counseling patient: Coding Level of Care Code 62380 SUB INP/OBS CARE 3/50MIN Diagnoses Hypoxia R09.02 Leukocytosis D72.829 Leukocytosis type: unspecified Elevated troponin R74.8 HOCM (hypertrophic obstructive cardiomyopathy) I42.1 Rheumatoid arthritis M06.9 (2) Leukocytosis Leukocytosis type: unspecified Qualified Code(s): D72.829 - Elevated white blood cell count, unspecified
[2024-04-24] MEDS ORDERED: cefTRIAXone SODIUM 2,000 MG/50 ML BAG IV SCH (18:00)
[2024-04-24 19:41] VITALS: RESP 18
[2024-04-24] MEDS: POLYETHYLENE (MIRALAX) 17 GM PACK PO PRN (20:57)
[2024-04-24] MEDS: CALCIUM CARBONATE 500 MG CHEWABLE TAB PO ONE (23:00)
[2024-04-25 06:58] LABS: Basophils # (auto) 0.01 K/uL (0.00-0.20); Basophils % (auto) 0.1 %; Eosinophils # (auto) 0.08 K/uL (0.00-0.50); Eosinophils % (auto) 1.1 %; Hematocrit (blood only) 34.7 % (37.0-47.0); Hemoglobin 10.9 g/dl (12.0-16.0); Immature Granulocytes # (auto) 0.03 K/uL (0.01-0.20); Immature Granulocytes % (auto) 0.4 %; Lymphocytes % (auto) 9.7 %; Mean Corpuscular Hemoglobin 26.4 pg (25.0-34.0); Mean Corpuscular Hgb Conc 31.4 g/dL (32.0-36.0); Monocytes # (auto) 0.62 K/uL (0.11-0.59); Monocytes % (auto) 8.6 %; Neutrophils # (auto) 5.78 K/uL (1.40-6.50); Neutrophils % (auto) 80.1 %; RBC Morphology Unremarkable; RDW Coefficient of Variation 18.7 % (11.5-14.5); RDW Standard Deviation 55.4 fL (36.4-46.3); Red Blood Count 4.13 M/uL (4.20-5.40); White Blood Count 7.22 K/ul (4.8-10.8)
[2024-04-25 07:16] LABS: BUN Creatinine Ratio 18.7 (10-20); C Reactive Protein 10.98 mg/dl (0-0.5); Calcium 9.2 mg/dl (8.6-10.3); Creatinine Clr Calc Pharmacy 33.7 ml/min; Est GFR (African American) 68.1 ml/min; Est GFR (Non-African American) 58.8 ml/min; Potassium 3.4 mmol/L (3.5-5.1)
[2024-04-25 07:22] LABS: Troponin I High Sensitivity 21.6 pg/ml (0-14)
--- NOTE | 2024-04-25 07:40 | XRay Report ---
XR chest 1V portable HISTORY: 83 years-old Female CHF acute shortness of breath with congestive heart failure COMPARISON: 04/23/2024 TECHNIQUE: AP view of the chest FINDINGS: Cardiomegaly with mitral annular calcifications. No pneumothorax. Trace pleural effusions with mild p ersistent bibasilar opacities. Pulmonary vascular congestion with mildly improved interstitial pulmon sallie edema. Sigmoidal thoracolumbar scoliosis redemonstrated with partially imaged lumbar spinal fusio n hardware. IMPRESSION: 1. Cardiomegaly with mildly improved interstitial pulmonary edema. 2. Trace pleural effusions with mildly improved bibasilar atelectasis. ACT 112: Negative or not required by law. The above report was generated using voice recognition software. It may contain grammatical, syntax o r spelling errors. Electronically signed by: Darius Salas M.D. 04/25/2024 7:37 AM
[2024-04-25] MEDS: cefTRIAXone SODIUM 2,000 MG/50 ML BAG IV SCH (08:35)
[2024-04-25] MEDS: POTASSIUM CHLORIDE CRTAB 20 MEQ TABCR PO ONE (08:36)
[2024-04-25] MEDS: LACTATED RINGER'S 500 ML IV ONE (11:56)
--- NOTE | 2024-04-25 13:53 | Hospitalist Progress Note ---
Date of Service April 25, 2024 Assessment & Plan (1) Hypoxia: Plan: Presented to the ED with multiple vague complaints including nausea without vomiting, generalized weakness, shortness of breath Respiratory bio fire negative Urine culture: no growth Blood culture: no growth at 24 hours CXR: cardiomegaly with pulmonary edema. Left basilar opacity has improved. - Pro-Neel negative Patient feeling worse after diuretics, given small fluid bolus and restarted on antibiotics - ceftriaxone - repeat CXR without signs of pneumonia - treating as sinusitis Has been stable on room air today (2) Leukocytosis: Plan: Patient noted to have a leukocytosis of 13 with neutrophil predominance of 10 on admission, and was reportedly febrile at the [facility] with temp of 101.8F Full respiratory BioFire is negative, no recent diarrhea, no signs of skin infection Patient is high risk for infection as she is on chronic methotrexate and prednisone due to rheumatoid arthritis Abx resumed as above (3) Elevated troponin: Plan: Initial high-sensitivity troponin elevated at 23, repeat 25 Patient denies chest pain, no acute ST segment or T wave changes on ECG Likely due to demand No acute events on tele (4) HOCM (hypertrophic obstructive cardiomyopathy): Plan: Patient with known history of HOCM Monitor volume status closely moving forward, avoid dehydration BNP elevated - recieved IV lasix 40mg x 2, now dry and symptomatic small bolus of fluids given (5) Rheumatoid arthritis: Plan: On chronic methotrexate and prednisone Will hold methotrexate for now with possible infection Continue 7.5 mg prednisone daily for now to avoid deficiency Plan Chronic stable medical conditions: * A-fib: Currently in sinus rhythm, continue metoprolol amiodarone and Eliquis DVT prophy: Home Eliquis Dispo: Continued inpatient stay, anticipate discharge tomorrow Admission and Anticipated Discharge Date Admission Date: April 25, 2024 Supervising Physician Co-Signing Physician Notes Attending Attestation - Chart reviewed, care plan d/w JENNY Uribe. I agree w/ the kelly components of her documentation. Dale Montero MD Subjective Patient was seen resting in bed, not feeling as well as yesterday - more nausea and a spell of diaphoresis. did feel like she was peeing more yesterday denies cough, some nasal congestion Tele - SR IVCD 60-70s Review of Systems Review of Systems: All systems reviewed & are unremarkable except as noted in Subjective Physical Exam Physical Exam: General: NAD, VS as above Resp: normal respiratory effort, crackles in the bases, no wheezing CV: RRR, + murmur, Abd: normal bowel sounds, non tender, no hepatosplenomegaly Extremities: Moves all extremities, no edema Neuro: A&O x3, Skin: intact, no lesions noted Results & Data Results & Data Vital Signs (Past 12 Hours) Vital Signs Temp Pulse Pulse Resp BP BP Pulse Ox 04/25/24 12:13 68 04/25/24 11:24 98.5 F 72 18 109/69 98 04/25/24 10:37 04/25/24 07:30 98.1 F 67 18 96/60 L 95 04/25/24 03:00 98.4 F 77 18 108/67 97 O2 Del Method 04/25/24 12:13 04/25/24 11:24 Room Air 04/25/24 10:37 Room Air 04/25/24 07:30 Room Air 04/25/24 03:00 Room Air Laboratory Results CBC, chemistry and CRP reviewed Diagnostic Findings CXR reviewed PG Care Time/CCT Total # of Minutes Spent Total Time Spent with Patient: Total time spent is greater than 50% in coordination of care (as documented) at patient's floor/unit and/or counseling patient: Coding Level of Care Code 07078 SUB INP/OBS CARE 3/50MIN Diagnoses Hypoxia R09.02 Leukocytosis D72.829 Leukocytosis type: unspecified Elevated troponin R74.8 HOCM (hypertrophic obstructive cardiomyopathy) I42.1 Rheumatoid arthritis M06.9 (2) Leukocytosis Leukocytosis type: unspecified Qualified Code(s): D72.829 - Elevated white blood cell count, unspecified
[2024-04-25] MEDS: METOCLOPRAMIDE HCL 5 MG TABLET PO PRN (20:15)
[2024-04-26 06:48] LABS: BUN Creatinine Ratio 19.7 (10-20); C Reactive Protein 8.13 mg/dl (0-0.5); Calcium 9.1 mg/dl (8.6-10.3); Creatinine Clr Calc Pharmacy 33.1 ml/min; Est GFR (African American) 84.7 ml/min; Est GFR (Non-African American) 73.1 ml/min; Potassium 3.4 mmol/L (3.5-5.1)
[2024-04-26 06:52] LABS: Basophils # (auto) 0.01 K/uL (0.00-0.20); Basophils % (auto) 0.1 %; Eosinophils # (auto) 0.05 K/uL (0.00-0.50); Eosinophils % (auto) 0.7 %; Hematocrit (blood only) 35.4 % (37.0-47.0); Hemoglobin 11.1 g/dl (12.0-16.0); Immature Granulocytes # (auto) 0.03 K/uL (0.01-0.20); Immature Granulocytes % (auto) 0.4 %; Lymphocytes # (auto) 0.67 K/uL (1.20-3.40); Lymphocytes % (auto) 9.1 %; Mean Corpuscular Hemoglobin 26.7 pg (25.0-34.0); Mean Corpuscular Hgb Conc 31.4 g/dL (32.0-36.0); Mean Corpuscular Volume 85.1 fL (80.0-100.0); Mean Platelet Volume 11.2 fL (9.4-12.4); Monocytes # (auto) 0.57 K/uL (0.11-0.59); Monocytes % (auto) 7.7 %; Neutrophils # (auto) 6.07 K/uL (1.40-6.50); Platelet Count 155 K/uL (130-400); RDW Standard Deviation 57.4 fL (36.4-46.3); Red Blood Count 4.16 M/uL (4.20-5.40)
[2024-04-26] MEDS: POTASSIUM CHLORIDE CRTAB 20 MEQ TABCR PO STA (08:49)
[2024-04-26] MEDS: LACTATED RINGER'S 250 ML IV ONE (10:24)
--- NOTE | 2024-04-26 11:34 | Discharge Summary ---
Discharge Summary Date of Service April 27, 2024 Principal Dx & Hospital Course #1 = Principal Diagnosis (1) Hypoxia: Presented to the ED with multiple vague complaints including nausea without vomiting, generalized weakness, shortness of breath Respiratory bio fire negative Urine culture: no growth Blood culture: no growth at 48 hours CXR: cardiomegaly with pulmonary edema. Left basilar opacity has improved. - Pro-Neel negative Patient feeling worse after diuretics, given small fluid bolus and restarted on antibiotics - ceftriaxone - repeat CXR without signs of pneumonia - treating as sinusitis Has been stable on room air 04/26 felt worse after episode of diarrhea - 250cc LR bolus - CTAP: no acute findings, moderate stool burden , diverticulosis, likely uterine fibroid (recommend nonurgent pelvic US) Patient feeling better today, weaker than baseline but not wanting rehab. Able to ambulate in the [place]. Arrange HH. reports better appetite at the [facility]. Life long nausea - declined outpatient GI referral. - could consider Remeron for appetite stimulation (2) Leukocytosis: Patient noted to have a leukocytosis of 13 with neutrophil predominance of 10 on admission, and was reportedly febrile at the [facility] with temp of 101.8F Full respiratory BioFire is negative, no recent diarrhea, no signs of skin infection Patient is high risk for infection as she is on chronic methotrexate and prednisone due to rheumatoid arthritis Abx resumed as above (3) Elevated troponin: Initial high-sensitivity troponin elevated at 23, repeat 25 Patient denies chest pain, no acute ST segment or T wave changes on ECG Likely due toDemand ischemia No acute events on tele (4) HOCM (hypertrophic obstructive cardiomyopathy): Acute on chronic diastolic (congestive) heart failure Patient with known history of HOCM Monitor volume status closely moving forward, avoid dehydration BNP elevated - recieved IV lasix 40mg x 2, now dry and symptomatic small bolus of fluids given (5) Rheumatoid arthritis: On chronic methotrexate and prednisone Will hold methotrexate for now with possible infection Continue 7.5 mg prednisone daily for now to avoid deficiency Plan Chronic stable medical conditions: * *Chronic atrial fibrillation: Currently in sinus rhythm, continue metoprolol amiodarone and Eliquis Dispo [facility]charge back [facility] with [facility] health. Notes For Next Care Provider Patient with slight fever on 04/26, CTAP done to r/o adbominal causes with her persistent nausea. no acute findings (likely uterine fibroid that recommend outpatient vaginal US). Patient declined GI referral for further workup. could consider Remeron for appetite stimulation Home with HH Medication Changes From Visit Cefdinir for sinus infection Admission HPI Per Admitting Provider Vane is an 83-year-old female with PMH of HOCM, atrial fibrillation (on Eliquis), HFpEF, HTN, HLD, CKD stage IIIa, GI bleed, and rheumatoid arthritis who presented to the [facility] ED via EMS on 04/23/2024 from the [facility] due to generalized weakness, fever, and nausea.. Per the ED, multiple residents of the [facility] have recently tested positive for COVID-19. Patient was noted to be hypoxic on EMS arrival at 70% on room air, however, she remained stable on room air in the ED and was otherwise stable. Labs were significant for a leukocytosis of 11 with neutrophil predominance of 10, sodium of 132, initial high-sensitivity troponin of 23, BNP of 618 (down from 1299 as of 12/06/2023), full respiratory BioFire negative, and UA with 6-10 WBC, greater than 20 RBC, trace leukocyte esterase, 3+ blood, cloudy appearance, 2+ protein. Chest x-ray was read as cardiomegaly with mild interstitial thickening suggestive of pulmonary edema. Interval decrease in left basilar opacity and a small left pleural effusion since prior exam. Prior to admission the patient was given 22 g ceftriaxone. Patient was sitting in bed no acute distress at the time of exam. States that over the past 3 to 4 days she has been experiencing generalized weakness, nausea with poor oral intake, mild shortness of breath with a nonproductive cough, increased urinary frequency, and fever. Denies recent chest pain abdominal pain, vomiting, diarrhea, lower extremity swelling, and recent swelling. States that she feels mildly improved compared to arrival but still weaker than her baseline. We discussed CODE STATUS, she wishes to be a DNR/DNI. Please refer to Dr. Jasso's attestation for any changes to the treatment plan Discharge Exam General: NAD, VS as above Resp: normal respiratory effort, crackles in the bases, no wheezing CV: RRR, + murmur, Abd: normal bowel sounds, non tender, no hepatosplenomegaly Extremities: Moves all extremities, no edema. Ambulated in the [place] without assistive device Neuro: A&O x3, Skin: intact, no lesions noted Discharge Plan Discharge Items Patient Disposition: Personal Residential Reason For Visit: GENERALIZED WEAKNESS, HYPOXIA, FEVER Discharge Diagnosis: Sinusitis Activity: Resume your previous activity Weightbearing: Full weightbearing Non-emergency contact: Primary Care Provider Call non-emergency contact if: you have any medication questions, you have a fever and your rectal temperature is above 100.4 Follow-up/Referrals: Aaron Wolf MD [Primary Care Provider] - (follow up within 1 week ) Diet: Heart Healthy and Low Sodium (2gm) Diet Texture: Easy to Chew Addtl Attending Provider Instructions: Ms. Carlton, You were hospitalized after having fevers and weakness at home. You were found to be fluid overloaded and having sinusitis. You responded well to diuretics and antibiotics and are no longer requiring supplemental oxygen. You should continue oral antibiotics for 7 days. I have sent in Cefidinir to the pharmacy. Your urine culture did not show infection. There are blood cultures pending, they are negative at 48 hours, they take 5 days to get the final result. I do not expect they will turn positive, but if they do, you will be notified. Continue to hold your methotrexate while you are taking antibiotics and treating an active infection, this can be resumed after your finish the course of cefdinir. Make sure you are staying hydrated and eating a well balanced diet to give your body nutrients. Would recommend using your cane or walker until you regain your strength back. Therapy will be coming to work with you at the [facility] scan recommended non - urgent follow up vaginal ultrasound for suspected fibroids. offered patient outpatient GI referral for chronic nausea and declined, if desires recommend PCP arrange Activity: You can do normal everyday activities as your body allows. Take rest breaks if you feel tired. Do not overexert. Stop activity if you have pain, shortness of breath or feel dizzy. Follow-up appointments: Make an appointment with your primary care physician within one week of discharge. A copy of this summary will be sent to them. Every time you see your primary care physician, or any other doctor, bring your medication list, and a list of questions. CONTACT YOUR PRIMARY CARE PROVIDER if you experience any of the following: Shortness of breath or difficulty breathing Fevers or chills Feeling tired with normal activity or experiencing dizziness or fainting Difficulty following your treatment plan, or difficulty taking medications CALL 911 OR GO TO THE EMERGENCY DEPARTMENT if you experience any of the following: Severe abdominal pain or nausea/vomiting Severe chest pain, or chest pain that radiates (moves) to your jaw or arm Sudden, severe shortness of breath or difficulty breathing Thank you for allowing us to participate in your care. Pending Studies at Discharge: Yes (blood cultures ) Stand-Alone Forms: My [employer], Smoking Cessation Skilled Items Patient informed of condition?: Yes Discharge Level of Care: Other Communicable Disease: No Discharge Prognosis: Stable Lines: None Urinary Catheter: No Medications and DC Order Prescriptions: New cefdinir 300 mg capsule 300 mg PO BID 5 Days Qty: 10 0RF Continued atorvastatin 10 mg Tablet 10 mg PO HS prednisone 5 mg Tablet 7.5 mg PO QAM Rx Instructions: 1 & 1/2 tablet aspirin 81 mg Tablet,Delayed Release (Dr/Ec) 81 mg PO QAM acetaminophen [Tylenol Extra Strength] 500 mg Tablet 1,000 mg PO Q8H PRN (Reason: Pain) lorazepam 0.5 mg Tablet 0.5 mg PO HS pantoprazole 40 mg Tablet,Delayed Release (Dr/Ec) 40 mg PO QAM cholecalciferol (vitamin D3) [Vitamin D3] 1,000 unit Capsule 1,000 unit PO QAM Calcium 600 + D(3) 600 mg calcium- 200 unit Capsule 1 tab PO QAM fluticasone propionate 50 mcg/actuation [place],Suspension 2 spray INTRANASAL QAM folic acid 800 mcg Tablet 2,000 mcg PO DAILY Rx Instructions: TAKES 2 1/2 TABS. multivitamin Tablet 1 tab PO DAILY amiodarone 200 mg tablet 200 mg PO DAILY metoprolol succinate 25 mg tablet extended release 24 hr 25 mg PO BID Eliquis 2.5 mg tablet 2.5 mg PO BID cetirizine 10 mg Tablet 10 mg PO DAILY tramadol 50 mg tablet 50 mg PO Q6H PRN (Reason: Pain) calcium carbonate 500 mg calcium (1,250 mg) Tablet 500 mg PO DAILY ondansetron 4 mg Tablet,Disintegrating 4 mg PO Q8H PRN (Reason: Nausea And Vomiting) Soothe XP 1-4.5 % Drops 1 drp OPHTHALMIC (EYE) BID PRN (Reason: Dry Eye(S)) melatonin 3 mg Capsule 9 mg PO HS polyethylene glycol 3350 [Miralax] 17 gram Powder In Packet 17 g PO BID Qty: 30 0RF Held methotrexate sodium 2.5 mg Tablet 22.5 mg PO Lopez@0900 Qty: 0 0RF Hold Instructions: Resume on 05/06/24. Discharge Orders: Discharge Order (Routine); Ordered 04/27/24 Ordered By: Radha Uribe Admission Data Admit Date/Time: 04/25/24 10:37 Attending Provider: Dale Montero Admit Provider: Dale Jasso Primary Care Provider: Aaron Wolf Other Providers: Dale Jasso Other Interventions: Discharge Summary Assessment (RN) Last Done: 04/27/24 11:26 Hospital Stay Data Consultations 04/23/24 18:14 ED Decision to Admit Stat Pending Results Patient Have Any Pending Studies at Discharge: Yes (blood cultures ) Discharge Instructions Given to Patient (Per Discharging Provider) Ms. Carlton, You were hospitalized after having fevers and weakness at home. You were found to be fluid overloaded and having sinusitis. You responded well to diuretics and antibiotics and are no longer requiring supplemental oxygen. You should continue oral antibiotics for 7 days. I have sent in Cefidinir to the pharmacy. Your urine culture did not show infection. There are blood cultures pending, they are negative at 48 hours, they take 5 days to get the final result. I do not expect they will turn positive, but if they do, you will be notified. Continue to hold your methotrexate while you are taking antibiotics and treating an active infection, this can be resumed after your finish the course of cefdinir. Make sure you are staying hydrated and eating a well balanced diet to give your body nutrients. Would recommend using your cane or walker until you regain your strength back. Therapy will be coming to work with you at [facility] scan recommended non - urgent follow up vaginal ultrasound for suspected fibroids. offered patient outpatient GI referral for chronic nausea and declined, if desires recommend PCP arrange Activity: You can do normal everyday activities as your body allows. Take rest breaks if you feel tired. Do not overexert. Stop activity if you have pain, shortness of breath or feel dizzy. Follow-up appointments: Make an appointment with your primary care physician within one week of discharge. A copy of this summary will be sent to them. Every time you see your primary care physician, or any other doctor, bring your medication list, and a list of questions. CONTACT YOUR PRIMARY CARE PROVIDER if you experience any of the following: Shortness of breath or difficulty breathing Fevers or chills Feeling tired with normal activity or experiencing dizziness or fainting Difficulty following your treatment plan, or difficulty taking medications CALL 911 OR GO TO THE EMERGENCY DEPARTMENT if you experience any of the following: Severe abdominal pain or nausea/vomiting Severe chest pain, or chest pain that radiates (moves) to your jaw or arm Sudden, severe shortness of breath or difficulty breathing Thank you for allowing us to participate in your care. Total Time Total Time Spent Total Time Spent (In Minutes): Time spent day of discharge [35 ] minutes including direct patient care, medication reconciliation, documentation, review of labs and images, and coordination of care. Coding Level of Care Code 34260 INP/OBS DISCH >30 MIN Diagnoses Hypoxia R09.02 Leukocytosis D72.829 Leukocytosis type: unspecified Elevated troponin R74.8 HOCM (hypertrophic obstructive cardiomyopathy) I42.1 Rheumatoid arthritis M06.9
[2024-04-26] MEDS: OPTIRAY 320 100ml IV ONE (14:12)
--- NOTE | 2024-04-26 16:02 | CT Scan Report ---
CT SCAN OF THE ABDOMEN AND PELVIS WITH IV CONTRAST CLINICAL HISTORY: Nausea. Generalized abdominal pain. Fever. COMPARISON STUDY: Abdominal CT dated 09/26/2018. TECHNIQUE: Following the IV administration of 93 cc of Optiray 320, CT scan of the abdomen and pelvi s is performed from the lung bases to the proximal femora. Images are reviewed in the axial, sagittal , and coronal planes. IV contrast was administered without complication. A dose lowering technique wa s utilized adhering to the principles of ALARA. The Examination is degraded by streak artifact from e xtensive metallic spinal hardware. CT DOSE: 350.39 mGy.cm FINDINGS: Lung bases: The heart is enlarged and without pericardial effusion. The coronary arteries and mitral annulus are densely calcified. There is trace left pleural effusion. Scarring/atelectasis is noted at both lung bases. There is no airspace consolidation typical for pneumonia. Liver: The contrast-enhanced liver is normal in size, contour, and attenuation. There is no intrahepa tic biliary ductal dilatation. The hepatic veins and portal veins are patent. Gallbladder: Unremarkable. Spleen: Normal in size and attenuation. Pancreas: Moderately atrophic and grossly unremarkable. Adrenal glands: Unremarkable. Kidneys: The contrast enhanced kidneys are normal in size and without hydronephrosis. The kidneys enh ance symmetrically. Abdominal vasculature: The abdominal aorta is normal in course and caliber noting mild atheroscleroti c calcification. Bowel: There is moderate colonic diverticulosis without CT evidence of acute diverticulitis. No bowel obstruction is seen. Moderate fecal retention is seen throughout the colon. The appendix is not laura ntified and reported surgically absent. Peritoneum: There is no intraperitoneal free air or abdominal ascites. There is a fat-containing umbi lical hernia. Lymphadenopathy: None. Pelvic viscera: The bladder is normal as visualized. The uterus is mildly enlarged and heterogeneous. No adnexal lesion is seen. Skeletal structures: The skeletal structures are osteopenic. A pectus deformity is noted. There is ad vanced lumbosacral spondylosis and scoliosis. A chronic compression deformity is noted in L4. There i s postsurgical change of laminectomy and posterior fusion seen at L2-S1. Bilateral iliac bolts are in place. No lytic or blastic lesions are seen. IMPRESSION: 1. No acute infectious or inflammatory findings are identified in the abdomen or pelvis. 2. Cardiomegaly and trace left pleural effusion. 3. Colonic diverticulosis without CT evidence of acute diverticulitis. 4. The uterus is enlarged and heterogeneous, possibly representing fibroids. Nonemergent/outpatient p elvic ultrasound is recommended in follow-up. 5. Additional findings as above. ACT 112: Negative or not required by law. Electronically signed by: Jamie Mcclendon M.D. 04/26/2024 4:01 PM
--- NOTE | 2024-04-26 17:26 | Hospitalist Progress Note ---
Date of Service April 26, 2024 Assessment & Plan (1) Hypoxia: Plan: Presented to the ED with multiple vague complaints including nausea without vomiting, generalized weakness, shortness of breath Respiratory bio fire negative Urine culture: no growth Blood culture: no growth at 24 hours CXR: cardiomegaly with pulmonary edema. Left basilar opacity has improved. - Pro-Neel negative Patient feeling worse after diuretics, given small fluid bolus and restarted on antibiotics - ceftriaxone - repeat CXR without signs of pneumonia - treating as sinusitis Has been stable on room air 04/26 felt worse after episode of diarrhea - 250cc LR bolus - CTAP: no acute findings, moderate stool burden , diverticulosis, likely uterine fibroid (recommend nonurgent pelvic US) - will attempt to move bowels to improve nausea (2) Leukocytosis: Plan: Patient noted to have a leukocytosis of 13 with neutrophil predominance of 10 on admission, and was reportedly febrile at the [facility] with temp of 101.8F Full respiratory BioFire is negative, no recent diarrhea, no signs of skin infection Patient is high risk for infection as she is on chronic methotrexate and prednisone due to rheumatoid arthritis Abx resumed as above (3) Elevated troponin: Plan: Initial high-sensitivity troponin elevated at 23, repeat 25 Patient denies chest pain, no acute ST segment or T wave changes on ECG Likely due to Demand ischemia No acute events on tele (4) HOCM (hypertrophic obstructive cardiomyopathy): Plan: Acute on chronic diastolic (congestive) heart failure Patient with known history of HOCM Monitor volume status closely moving forward, avoid dehydration BNP elevated - recieved IV lasix 40mg x 2, now dry and symptomatic small bolus of fluids given (5) Rheumatoid arthritis: Plan: On chronic methotrexate and prednisone Will hold methotrexate for now with possible infection Continue 7.5 mg prednisone daily for now to avoid deficiency Plan Chronic stable medical conditions: * *Chronic atrial fibrillation A-fib: Currently in sinus rhythm, continue metoprolol amiodarone and Eliquis DVT prophy: Home Eliquis Dispo: Continued inpatient stay, anticipate discharge tomorrow Admission and Anticipated Discharge Date Admission Date: April 25, 2024 Supervising Physician Co-Signing Physician Notes Attending Attestation and Progress Note: Pt seen/examined, chart reviewed, care plan d/w JENNY Uribe. I agree w/ the kelly components of her documentation. During my visit patient reported little to no PO intake at breakfast, and declined lunch. States she has had poor appetite for some time (weeks-months) and "nausea all of my life." Reports a little discomfort in the upper portion of her abdomen. She did not realize she had fever this am. Exam - gen - cachectic, malnourished appearing, tremor noted mouth - MMM face - no tenderness any sinus to palpation neck - no JVD heart - RRR, s1 s2 lungs - CTA b/l abd - scant tenderness upper abdomen/epigastric region, BS+, ND, no masses ext - pulses 2+ b/l A/P: 1. fever - 2nd to #2? 2nd to #3? other? 2. possible sinusitis - remains on antibiotics 3. anorexia, nausea, other abdominal complaints - CT a/p with contrast - r/o pancreatitis, r/o diverticulitis, r/o cholecystitis, r/o other process 4. steroid-dependent RA 5. HOCM 6. a.fib on Eliquis Discharge canceled today due to poor po intake, fever, etc. Dale Montero MD Subjective Patient seen multiple times throughout the day. this morning she had just gone to the bathroom and had an episode of diarrhea and did not feel herself after that and was a little weak. her tremor was worse so I gave her 250cc of fluids she felt better after this and plan was to discharge, however mild fever prior to being seen by my attending and opted to cancel discharge. stat CT A/P ordered. Review of Systems Review of Systems: All systems reviewed & are unremarkable except as noted in Subjective Physical Exam Physical Exam: General: NAD, VS as above Resp: normal respiratory effort, crackles in the bases, no wheezing CV: RRR, + murmur, Abd: normal bowel sounds, non tender, no hepatosplenomegaly Extremities: Moves all extremities, no edema Neuro: A&O x3, Skin: intact, no lesions noted Results & Data Results & Data Vital Signs (Past 12 Hours) Vital Signs Temp Pulse Pulse Resp BP Pulse Ox O2 Del Method 04/26/24 15:47 98.2 F 67 18 132/72 94 Room Air 04/26/24 15:17 73 04/26/24 11:25 100.0 F H 79 18 136/76 92 Room Air 09/25/24 08:02 99.1 F 80 18 116/59 L 93 Room Air 04/26/24 07:16 74 Laboratory Results CBC, chemistry, CRP reviewed Diagnostic Findings CT A/P reviewed PG Care Time/CCT Total # of Minutes Spent Total Time Spent with Patient: Total time spent is greater than 50% in coordination of care (as documented) at patient's floor/unit and/or counseling patient: Coding Level of Care Code 07929 SUB INP/OBS CARE 3/50MIN Diagnoses Hypoxia R09.02 Leukocytosis D72.829 Leukocytosis type: unspecified Elevated troponin R74.8 HOCM (hypertrophic obstructive cardiomyopathy) I42.1 Rheumatoid arthritis M06.9 (2) Leukocytosis Leukocytosis type: unspecified Qualified Code(s): D72.829 - Elevated white blood cell count, unspecified
[2024-04-26] MEDS: POLYETHYLENE (MIRALAX) 17 GM PACK PO ONE (18:33)
[2024-04-26] MEDS: bisacodyL 5 MG TABEC PO ONE (18:33)
[2024-04-26] MEDS: FLUTICASONE PROPIONATE NA SPR 16 GM BTL PRN (22:01)
--- NOTE | 2024-04-27 06:33 | Electrocardiogram Report ---
Test Reason : Blood Pressure : */* mmHG Vent. Rate : 72 BPM Atrial Rate : 72 BPM P-R Int : 190 ms QRS Dur : 150 ms QT Int : 482 ms P-R-T Axes : 100 -33 128 degrees QTcB Int : 527 ms Normal sinus rhythm Left axis deviation Left bundle branch block Abnormal ECG When compared with ECG of 27-Dec-2023 22:01, No significant change Confirmed by Rosendo Park ([id number] on 04/27/2024 6:33:34 AM Referred By: Confirmed By: Rosendo Park
[2024-04-27 06:52] LABS: BUN Creatinine Ratio 17.5 (10-20); Calcium 8.9 mg/dl (8.6-10.3); Est GFR (African American) 79.6 ml/min; Est GFR (Non-African American) 68.7 ml/min; Potassium 3.3 mmol/L (3.5-5.1)
[2024-04-27 07:36] VITALS: BP 99/59; TEMP 98.1; O2SAT 96
[2024-04-27] MEDS: POTASSIUM CHLORIDE CRTAB 20 MEQ TABCR PO STA (09:05)
[2024-04-27] MEDS: MAGNESIUM SULFATE / D5W 1 GM/100 ML BAG IV ONE (10:02)
[2024-04-27 14:35] VITALS: PULSE 77
== END 2024-04-27 14:57 | disposition home or self-care (01) | DRG 291 ==
LOC: 2W 15:17 → ED 15:17 → SUATTDRO 18:18 → 2W 20:29

== ENCOUNTER 2024-08-04 10:38 | Inpatient (IN) ==
--- NOTE | 2024-08-04 10:55 | Emergency Department Note ---
Impression & Plan Pneumonia, Human metapneumovirus (hMPV) pneumonia, Elevated troponin ED Provider Note NAME: MAXIME CANTU AGE: 83 SEX: F : 1940 ARRIVES VIA: Ambulance INFORMANT: Patient ED PROVIDER(S): Ru Avila DO CHIEF COMPLAINT: Cough, congestion, shortness of breath, fever HPI: Patient is an 83-year-old female with a past medical history of A-fib on Eliquis, CHF, left bundle branch block, anxiety, HCOM who presents to the ER for symptoms that have been present for the past week. Patient admits to cough, congestion and shortness of breath. She admits to fevers of 102. She does admit to a headache and diffuse pain throughout her whole body. She has pain in her ribs with coughing. No belly pain. Denies any nausea, vomiting, or diarrhea. Admits to chronic back pain. No dysuria, urgency, or frequency. No other exacerbating or remitting factors. ADDITIONAL HISTORY OBTAINED: Per HPI Chronic Medical/Social Conditions Affecting Care: Per HPI PAST MEDICAL HISTORY:See Below PAST SURGICAL HISTORY:See Below FAMILY HISTORY:See Below SOCIAL HISTORY:See Below HOME MEDICATIONS:See Below ALLERGIES:See Below VITALS:See Below PHYSICAL EXAMINATION: GENERAL: Sitting up in bed, alert, chronically ill-appearing, disheveled EYE EXAM: normal conjunctiva. PERRL and EOM's grossly intact. OROPHARYNX: no exudate, no erythema, lips, buccal mucosa, and tongue normal and mucous membranes are moist NECK: supple, no nuchal rigidity, no adenopathy, non-tender LUNGS: Rhonchi at the bases. Normal chest wall mechanics HEART: no murmurs, S1 normal and S2 normal ABDOMEN: abdomen soft, non-tender, normo-active bowel sounds, no masses, no rebound or guarding. BACK: Back is symmetrical on inspection and there is no deformity, no midline tenderness, no CVA tenderness. UPPER EXTREMITIES: upper extremities are grossly normal. LOWER EXTREMITIES: No pitting edema. NEURO EXAM: Normal sensorium, cranial nerves II-XII grossly intact, normal speech, no gross weakness of arms, no gross weakness of legs. MEDICAL DECISION MAKING: Patient is an 83-year-old female with a past medical history of hypertension, CKD, CHF who presents to the ER for the above-stated complaint. IV was established and blood work was obtained. Labs show no significant leukocytosis. Mild anemia 10.3 fairly consistent with previous. BMP with mild hypokalemia 3.3. LFTs bilirubin is unremarkable. Troponin mildly elevated at 47. Lipase was normal. Viral panel + human metapneumovirus. Patient was given 2 g cefepime following a chest x-ray which confirms right lower lobe pneumonia. Patient was given IV fluids and azithromycin. Remained on 2 L nasal cannula. Discussed case with the hospitalist for further evaluation management treatment. Consults/Care Managements Discussions: Per MDM Triage Nursing notes reviewed. Limited review of prior medical records performed Vital Signs: reviewed and remarkable for no significant abnormalities Differential diagnosis: Differential diagnoses includes but is not limited to pneumonia, bronchitis, COPD/Asthma exacerbation, pneumothorax, pulmonary embolism, congestive heart failure, acute coronary syndrome ER treatment provided: See below Diagnostics interpreted by me include EKG and cardiac monitoring as listed below: -Cardiac Monitoring: An order was placed for continuous cardiac monitoring. The monitor shows a rate of 70 with sinus rhythm. -ECG: Sinus rhythm rate 80 Left axis No PVCs QTc 521 -Laboratory studies:Interpreted by me as stated above in MDM and shown below. Imaging studies: Xrays: As interpreted by me: Portable AP upright 1 view of the chest shows right lower lobe infiltrate CTs show: none Procedures:none Critical Care: None Past Med/Surg History Problem List (Updated 08/04/24 @ 17:04 by Ru Avila DO) Elevated troponin (Acute) Pneumonia (Acute) Elevated troponin Human metapneumovirus (hMPV) pneumonia (Acute) Sinusitis Complete left bundle branch block (LBBB) (Acute) CHF (congestive heart failure) (Acute) Hypoxemia (Acute) Pneumonia (Acute) Atrial fibrillation Atrial fibrillation with rapid ventricular response Pneumonia (Acute) Leukocytosis (Acute) Hypoxia (Acute) SOB (shortness of breath) (Acute) Elevated troponin (Acute) Precordial chest pain (Acute) Left lower lobe pneumonia Mitral valve mass DVT prophylaxis Chronic kidney disease, stage 3a Thrombocytopenia COVID (Acute) Acute dehydration (Acute) Elevated troponin (Acute) Hypotension (Acute) Hypertension Hyperlipidemia GERD (gastroesophageal reflux disease) Anxiety Rheumatoid arthritis HOCM (hypertrophic obstructive cardiomyopathy) COVID Weakness (Acute) Heart valve disease Chronic diastolic heart failure Elevated troponin SVT (supraventricular tachycardia) Hypomagnesemia (Acute) Anemia Electrolyte abnormality DVT prophylaxis Sepsis Enteritis (Acute) GI bleed (Acute) Diarrhea (Acute) Vomiting (Acute) Acute dehydration (Acute) Encounter for pre-operative examination Chronic sinusitis Chronic otitis media of left ear Mitral valve prolapse (Chronic) IBS (irritable bowel syndrome) (Chronic) Diverticulitis (Chronic) Lumbar stenosis with neurogenic claudication (Chronic) Medical History Hypertrophic cardiomyopathy with LVOT and LEYDA PONV (postoperative nausea and vomiting) Lactose intolerance Osteoporosis Kidney stones passed on own Hiatal hernia HOCM (hypertrophic obstructive cardiomyopathy) Surgical History Hx of mastoidectomy History of lumbar spinal fusion History of tonsillectomy and adenoidectomy History of endoscopic sinus surgery History of cataract surgery right and left History of appendectomy Social History Smoking Status: Never smoker Second Hand Exposure: No; Do You Dip or Chew Tobacco: No; Hx Alcohol Use: No Hx Substance Use: No Preferred Language: Cypriot Communication Ability: Effective Visual Impairment: No Limitations Youth Program Director Required: No Beliefs That Will Affect Care: None Current Living Situation: Personal Care Facility Current Living Situation Comment: [facility] Feels Safe at Home: Yes Assistive Devices: Cane and Walker Allergies Allergies Allergy/AdvReac Type Severity Reaction Status Date / Time bee venom protein (honey bee) Allergy Intermediate BEE/WASP-NAUSEA Verified 12/06/23 14:19 AND DIZZINESS Penicillins Allergy Intermediate RASH (PER Verified 12/06/23 14:19 PT, WAS A LONG TIME AGO)AMOXICILLIN AND PCN amoxicillin [From Augmentin] Allergy Mild Unknown Verified 12/06/23 14:19 clavulanic acid Allergy Mild Unknown Verified 12/06/23 14:19 [From Augmentin] esomeprazole Allergy Mild NAUSEA Verified 12/06/23 14:19 VOMITING magnesium citrate Allergy Mild projectile Verified 12/06/23 14:19 vomitting antipyrine Allergy Unknown RASH AND Verified 12/06/23 14:19 BLISTERS benzocaine Allergy Unknown dental - Verified 12/06/23 14:19 tingling on tongue hydroxychloroquine Allergy Unknown UNKNOWN Verified 12/06/23 14:19 misoprostol Allergy Unknown UNKNOWN Verified 12/06/23 14:19 phenylephrine Allergy Unknown UNKNOWN Verified 12/06/23 14:19 pseudoephedrine Allergy Unknown UNKNOWN Verified 12/06/23 14:19 Serotonin 5HT-3 Antagonists Allergy Unknown UNKNOWN Verified 12/06/23 14:19 Sulfa (Sulfonamide Allergy Unknown UNKNOWN Verified 12/06/23 14:19 Antibiotics) citalopram AdvReac Mild GI UPSET Verified 12/06/23 14:19 clarithromycin AdvReac Mild GI UPSET Verified 12/06/23 14:19 denosumab [From Prolia] AdvReac Unknown Unknown Unverified 12/06/23 14:19 Home Meds Home Medications Medication Instructions Recorded Confirmed acetaminophen 500 mg tablet 1,000 mg PO Q8H PRN Pain 08/17/18 08/04/24 (Tylenol Extra Strength) aspirin 81 mg tablet,delayed 81 mg PO [facility] 08/17/18 08/04/24 release atorvastatin 10 mg tablet 10 mg PO HS 08/17/18 08/04/24 calcium 600 mg (as 2 tab PO [facility] 08/17/18 08/04/24 carbonate)-vitamin D3 5 mcg (200 unit) capsule (Calcium 600 + D(3)) cholecalciferol (vitamin D3) 25 1,000 unit PO [facility] 08/17/18 08/04/24 mcg (1,000 unit) capsule (Vitamin D3) fluticasone propionate 50 2 spray intranasal [facility] 08/17/18 08/04/24 mcg/actuation nasal spray,suspension lorazepam 0.5 mg tablet 0.5 mg PO TID PRN Anxiety 08/17/18 08/04/24 pantoprazole 40 mg tablet,delayed 40 mg PO [facility] 08/17/18 08/04/24 release multivitamin 1 tab PO DAILY 08/05/22 08/04/24 calcium carbonate 500 mg PO DAILY 12/06/23 08/04/24 cetirizine 10 mg tablet 10 mg PO DAILY 12/06/23 08/04/24 melatonin 3 mg capsule 9 mg PO HS 12/06/23 08/04/24 ondansetron 4 mg disintegrating 4 mg PO Q8H PRN Nausea And Vomiting 12/06/23 08/04/24 tablet tramadol 50 mg tablet 50 mg PO Q6H PRN Pain 12/06/23 08/04/24 amiodarone 200 mg tablet 200 mg PO DAILY 04/23/24 08/04/24 apixaban 2.5 mg tablet (Eliquis) 2.5 mg PO BID 04/23/24 08/04/24 metoprolol succinate 25 mg 25 mg PO DAILY 04/23/24 08/04/24 tablet,extended release 24 hr folic acid 0.8 mg capsule 1.2 mg PO [id number] 08/04/24 08/04/24 guaifenesin 600 mg tablet, 600 mg PO Q12H PRN Congestion 08/04/24 08/04/24 extended release 12 hr ibuprofen 200 mg tablet 200 mg PO Q6H PRN Pain 08/04/24 08/04/24 Previous Rx's Medication Instructions Recorded methotrexate sodium 2.5 mg tablet 22.5 mg (9 x 2.5 mg) PO Lopez@0900 #0 12/09/23 tabs polyethylene glycol 3350 17 gram 17 g PO BID #30 ea 12/09/23 oral powder packet (Miralax) Results & Data (ED) Vital Signs Vital Signs - 24 hr 08/04/24 10:55 08/04/24 10:55 08/04/24 10:55 Temperature 37.7 C H Temperature Source Oral Pulse Rate 87 87 Pulse Rate [Apical] Pulse Rate from SpO2 Sensor Respiratory Rate 20 20 Respiratory Effort / Characteristics Spontaneous Labored Respiratory Depth Blood Pressure 144/78 H Blood Pressure [Left Arm] Blood Pressure Mean 100 Blood Pressure Mean [Left Arm] Pulse Oximetry 91 92 92 Oxygen Delivery Method Room Air Nasal Cannula Nasal Cannula Oxygen Flow Rate 2 Sepsis Recent Fever Within 48 Hours Yes Sepsis New/Unexplained Change in Mental Status No Sepsis Action Taken by Nursing No Action Required 08/04/24 10:59 08/04/24 12:54 08/04/24 13:00 Temperature Temperature Source Pulse Rate 86 76 Pulse Rate [Apical] 74 Pulse Rate from SpO2 Sensor 77 Respiratory Rate 22 23 Respiratory Effort / Characteristics Respiratory Depth Blood Pressure 123/68 Blood Pressure [Left Arm] 123/68 Blood Pressure Mean 86 Blood Pressure Mean [Left Arm] 86 Pulse Oximetry 93 95 Oxygen Delivery Method Nasal Cannula Oxygen Flow Rate 2 Sepsis Recent Fever Within 48 Hours Sepsis New/Unexplained Change in Mental Status Sepsis Action Taken by Nursing 08/04/24 13:27 08/04/24 14:30 08/04/24 14:45 Temperature Temperature Source Pulse Rate 70 70 73 Pulse Rate [Apical] Pulse Rate from SpO2 Sensor 70 71 76 Respiratory Rate 16 21 21 Respiratory Effort / Characteristics Respiratory Depth Blood Pressure Blood Pressure [Left Arm] Blood Pressure Mean Blood Pressure Mean [Left Arm] Pulse Oximetry 95 95 96 Oxygen Delivery Method Oxygen Flow Rate Sepsis Recent Fever Within 48 Hours Sepsis New/Unexplained Change in Mental Status Sepsis Action Taken by Nursing 08/04/24 14:54 08/04/24 15:00 08/04/24 15:27 Temperature Temperature Source Pulse Rate 68 70 67 Pulse Rate [Apical] Pulse Rate from SpO2 Sensor 68 70 67 Respiratory Rate 17 14 19 Respiratory Effort / Characteristics Respiratory Depth Blood Pressure Blood Pressure [Left Arm] Blood Pressure Mean Blood Pressure Mean [Left Arm] Pulse Oximetry 95 97 94 Oxygen Delivery Method Oxygen Flow Rate Sepsis Recent Fever Within 48 Hours Sepsis New/Unexplained Change in Mental Status Sepsis Action Taken by Nursing 08/04/24 15:36 08/04/24 15:42 08/04/24 15:54 Temperature Temperature Source Pulse Rate 69 69 67 Pulse Rate [Apical] Pulse Rate from SpO2 Sensor 69 69 67 Respiratory Rate 22 23 20 Respiratory Effort / Characteristics Respiratory Depth Blood Pressure Blood Pressure [Left Arm] Blood Pressure Mean Blood Pressure Mean [Left Arm] Pulse Oximetry 94 95 95 Oxygen Delivery Method Oxygen Flow Rate Sepsis Recent Fever Within 48 Hours Sepsis New/Unexplained Change in Mental Status Sepsis Action Taken by Nursing 08/04/24 16:01 08/04/24 16:09 08/04/24 16:18 Temperature Temperature Source Pulse Rate 70 73 Pulse Rate [Apical] Pulse Rate from SpO2 Sensor 70 73 Respiratory Rate 21 18 Respiratory Effort / Characteristics Non-Labored Spontaneous Respiratory Depth Normal Blood Pressure Blood Pressure [Left Arm] Blood Pressure Mean Blood Pressure Mean [Left Arm] Pulse Oximetry 96 97 Oxygen Delivery Method Oxygen Flow Rate Sepsis Recent Fever Within 48 Hours Sepsis New/Unexplained Change in Mental Status Sepsis Action Taken by Nursing Laboratory Data 08/04/24 11:27 08/04/24 11:27 Lab Results 08/04/24 08/04/24 08/04/24 Range/Units 11:09 11:27 14:27 WBC 8.72 (4.8-10.8) K/ul RBC 3.98 L (4.20-5.40) M/uL Hgb 10.3 L (12.0-16.0) g/dl Hct 33.0 L (37.0-47.0) % MCV 82.9 (80.0-100.0) fL MCH 25.9 (25.0-34.0) pg MCHC 31.2 L (32.0-36.0) g/dL RDW Std Deviation 59.3 H (36.4-46.3) fL RDW Coeff of Matteo 20.0 H (11.5-14.5) % Plt Count (130-400) K/uL MPV (9.4-12.4) fL Immature Gran % (Auto) 0.8 % Neut % (Auto) 90.9 % Lymph % (Auto) 3.7 % Dale % (Auto) 4.5 % Eos % (Auto) 0.0 % Baso % (Auto) 0.1 % Neut # (Auto) 7.93 H (1.40-6.50) K/uL Lymph # (Auto) 0.32 L (1.20-3.40) K/uL Dale # (Auto) 0.39 (0.11-0.59) K/uL Eos # (Auto) 0.00 (0.00-0.50) K/uL Baso # (Auto) 0.01 (0.00-0.20) K/uL Immature Gran # (Auto) 0.07 (0.01-0.20) K/uL Plt Count ,Citrate 89 L (130-400) K/uL Sodium 134 L (136-145) mmol/L Potassium 3.3 L (3.5-5.1) mmol/L Chloride 98 (98-107) mmol/L Carbon Dioxide 27 (21-32) mmol/L Anion Gap 9 (3-11) BUN 11 (6-23) mg/dl Creatinine 0.89 (0.6-1.2) mg/dl Est Cr Clr Drug Dosing 35.0 ml/min eGFR 64.69 BUN/Creatinine Ratio 12.4 (10-20) Glucose 137 H (70-99(Fasting)) mg/dl Calcium 8.8 (8.6-10.3) mg/dl Total Bilirubin 0.9 (0.2-1.0) mg/dl AST 40 H (13-39) U/L ALT 38 (7-52) U/L Alkaline Phosphatase 66 (34-104) U/L Troponin I High Sens 48.5 H 47.3 H (0-14) pg/ml Total Protein 6.4 (6.0-8.3) gm/dl Albumin 4.0 (3.4-5.0) gm/dl Globulin 2.4 L (2.5-4.0) gm/dl Albumin/Globulin Ratio 1.7 (0.9-2) Lipase 18 (11-82) U/L Adenovirus (PCR) Not Detected (NotDetected) B. pertussis DNA (PCR) Not Detected (NotDetected) B.parapertussis DNA PCR Not Detected (NotDetected) C. pneumoniae DNA (PCR) Not Detected (NotDetected) Coronavirus OC43 (PCR) Not Detected (NotDetected) Coronavirus HKU1 (PCR) Not Detected (NotDetected) Coronavirus 229E (PCR) Not Detected (NotDetected) SARS-CoV-2 (PCR) Not Detected (NotDetected) Coronavirus NL63 (PCR) Not Detected (NotDetected) Human Metapneumovir PCR DETECTED A (NotDetected) Influenza Type A (PCR) Not Detected (NotDetected) Influenza Type B (PCR) Not Detected (NotDetected) M. pneumoniae (PCR) Not Detected (NotDetected) Parainfluenza 1 (PCR) Not Detected (NotDetected) Parainfluenza 2 (PCR) Not Detected (NotDetected) Parainfluenza 3 (PCR) Not Detected (NotDetected) Parainfluenza 4 (PCR) Not Detected (NotDetected) RSV (PCR) Not Detected (NotDetected) Entero/Rhino (PCR) Not Detected (NotDetected) 08/04/24 Range/Units 15:28 WBC (4.8-10.8) K/ul RBC (4.20-5.40) M/uL Hgb (12.0-16.0) g/dl Hct (37.0-47.0) % MCV (80.0-100.0) fL MCH (25.0-34.0) pg MCHC (32.0-36.0) g/dL RDW Std Deviation (36.4-46.3) fL RDW Coeff of Matteo (11.5-14.5) % Plt Count (130-400) K/uL MPV (9.4-12.4) fL Immature Gran % (Auto) % Neut % (Auto) % Lymph % (Auto) % Dale % (Auto) % Eos % (Auto) % Baso % (Auto) % Neut # (Auto) (1.40-6.50) K/uL Lymph # (Auto) (1.20-3.40) K/uL Dale # (Auto) (0.11-0.59) K/uL Eos # (Auto) (0.00-0.50) K/uL Baso # (Auto) (0.00-0.20) K/uL Immature Gran # (Auto) (0.01-0.20) K/uL Plt Count ,Citrate (130-400) K/uL Sodium (136-145) mmol/L Potassium (3.5-5.1) mmol/L Chloride (98-107) mmol/L Carbon Dioxide (21-32) mmol/L Anion Gap (3-11) BUN (6-23) mg/dl Creatinine (0.6-1.2) mg/dl Est Cr Clr Drug Dosing ml/min eGFR BUN/Creatinine Ratio (10-20) Glucose (70-99(Fasting)) mg/dl Calcium (8.6-10.3) mg/dl Total Bilirubin (0.2-1.0) mg/dl AST (13-39) U/L ALT (7-52) U/L Alkaline Phosphatase (34-104) U/L Troponin I High Sens 44.2 H (0-14) pg/ml Total Protein (6.0-8.3) gm/dl Albumin (3.4-5.0) gm/dl Globulin (2.5-4.0) gm/dl Albumin/Globulin Ratio (0.9-2) Lipase (11-82) U/L Adenovirus (PCR) (NotDetected) B. pertussis DNA (PCR) (NotDetected) B.parapertussis DNA PCR (NotDetected) C. pneumoniae DNA (PCR) (NotDetected) Coronavirus OC43 (PCR) (NotDetected) Coronavirus HKU1 (PCR) (NotDetected) Coronavirus 229E (PCR) (NotDetected) SARS-CoV-2 (PCR) (NotDetected) Coronavirus NL63 (PCR) (NotDetected) Human Metapneumovir PCR (NotDetected) Influenza Type A (PCR) (NotDetected) Influenza Type B (PCR) (NotDetected) M. pneumoniae (PCR) (NotDetected) Parainfluenza 1 (PCR) (NotDetected) Parainfluenza 2 (PCR) (NotDetected) Parainfluenza 3 (PCR) (NotDetected) Parainfluenza 4 (PCR) (NotDetected) RSV (PCR) (NotDetected) Entero/Rhino (PCR) (NotDetected) Administered Medications Discontinued Medications Cefepime HCl (Maxipime 2000mg) 2,000 mg in 20 mls @ 5 mls/min IV NOW STA; Protocol Stop: 08/04/24 11:35 Last Admin: 08/04/24 12:10 Dose: 5 mls/min Documented By: KELLY Potassium Chloride (Potassium Chloride Crtab 20 Meq Tabcr) 20 meq PO NOW STA Stop: 08/04/24 13:32 Last Admin: 08/04/24 14:22 Dose: 20 meq Documented By: KELLY Imaging Data Radiologist's Impression: Chest X-Ray 08/04/24 10:52 XR chest 1V portable CLINICAL HISTORY: Chest pain, nonspecific TECHNIQUE: Single frontal radiograph of the chest was obtained. Comparison: Comparison is made to chest radiograph 04/25/2024 FINDINGS: No lines and tubes are seen. Cardiomegaly is noted. Bilateral lower lung predominant airspace opacities are seen. Likely [id number] left pleural effusion. IMPRESSION: 1. Bilateral lower lung predominant airspace opacities which may represent atelectasis, pneumonia, and/or aspiration. 2. Small moderate left pleural effusion. ACT 112: Negative or not required by law. Electronically signed by: Martell Webster M.D. 08/04/2024 11:29 AM Discharge Plan Visit Data Chief Complaint: Weakness Stated Complaint: WEAKNESS ED Provider: Ru Avila Discharge Problem: Pneumonia, Human metapneumovirus (hMPV) pneumonia, Elevated troponin Forms Stand Alone Forms: [facility] [employer] Prescriptions Prescriptions: No Action atorvastatin 10 mg Tablet 10 mg PO HS aspirin 81 mg Tablet,Delayed Release (Dr/Ec) 81 mg PO QAM acetaminophen [Tylenol Extra Strength] 500 mg Tablet 1,000 mg PO Q8H PRN (Reason: Pain) lorazepam 0.5 mg Tablet 0.5 mg PO TID PRN (Reason: Anxiety) pantoprazole 40 mg Tablet,Delayed Release (Dr/Ec) 40 mg PO QAM cholecalciferol (vitamin D3) [Vitamin D3] 1,000 unit Capsule 1,000 unit PO QAM Calcium 600 + D(3) 600 mg calcium- 200 unit Capsule 2 tab PO QAM fluticasone propionate 50 mcg/actuation [place],Suspension 2 spray INTRANASAL QAM multivitamin Tablet 1 tab PO DAILY amiodarone 200 mg tablet 200 mg PO DAILY metoprolol succinate 25 mg tablet extended release 24 hr 25 mg PO DAILY Eliquis 2.5 mg tablet 2.5 mg PO BID cetirizine 10 mg Tablet 10 mg PO DAILY tramadol 50 mg tablet 50 mg PO Q6H PRN (Reason: Pain) calcium carbonate 500 mg calcium (1,250 mg) Tablet 500 mg PO DAILY ondansetron 4 mg Tablet,Disintegrating 4 mg PO Q8H PRN (Reason: Nausea And Vomiting) melatonin 3 mg Capsule 9 mg PO HS polyethylene glycol 3350 [Miralax] 17 gram Powder In Packet 17 g PO BID Qty: 30 0RF methotrexate sodium 2.5 mg Tablet 22.5 mg PO Lopez@0900 Qty: 0 0RF Hold Instructions: Resume on 05/06/24. ibuprofen 200 mg Tablet 200 mg PO Q6H PRN (Reason: Pain) folic acid 0.8 mg Capsule 1.2 mg PO [id number] Rx Instructions: EVERY DAY EXCEPT SUNDAYS guaifenesin 600 mg Tablet Extended Release 12hr 600 mg PO Q12H PRN (Reason: Congestion) Referrals Referrals: Aaron Wolf MD [Outside Practitioners] - Discharge Problem: Pneumonia Qualifiers: Pneumonia type: due to unspecified organism Laterality: unspecified laterality Lung location: unspecified part of lung Qualified Code(s): J18.9 - Pneumonia, unspecified organism
--- NOTE | 2024-08-04 11:30 | XRay Report ---
XR chest 1V portable CLINICAL HISTORY: Chest pain, nonspecific TECHNIQUE: Single frontal radiograph of the chest was obtained. Comparison: Comparison is made to chest radiograph 04/25/2024 FINDINGS: No lines and tubes are seen. Cardiomegaly is noted. Bilateral lower lung predominant airspace opaciti es are seen. Likely [id number] left pleural effusion. IMPRESSION: 1. Bilateral lower lung predominant airspace opacities which may represent atelectasis, pneumonia, a nd/or aspiration. 2. Small moderate left pleural effusion. ACT 112: Negative or not required by law. Electronically signed by: Martell Webster M.D. 08/04/2024 11:29 AM
[2024-08-04 12:02] LABS: Albumin Globulin Ratio 1.7 (0.9-2); BUN Creatinine Ratio 12.4 (10-20); Bilirubin,Total 0.9 mg/dl (0.2-1.0); Calcium 8.8 mg/dl (8.6-10.3); Globulin 2.4 gm/dl (2.5-4.0); Potassium 3.3 mmol/L (3.5-5.1); Total Protein 6.4 gm/dl (6.0-8.3)
[2024-08-04 12:07] LABS: Hemoglobin 10.3 g/dl (12.0-16.0); Mean Corpuscular Hemoglobin 25.9 pg (25.0-34.0); Mean Corpuscular Hgb Conc 31.2 g/dL (32.0-36.0); Mean Corpuscular Volume 82.9 fL (80.0-100.0); RDW Standard Deviation 59.3 fL (36.4-46.3); Red Blood Count 3.98 M/uL (4.20-5.40); White Blood Count 8.72 K/ul (4.8-10.8)
[2024-08-04 12:08] LABS: Troponin I High Sensitivity 48.5 pg/ml (0-14)
[2024-08-04] MEDS: CEFEPIME 2000MG 2,000 MG/20 ML SYR IV STA (12:10)
[2024-08-04 12:14] LABS: Basophils # (auto) 0.01 K/uL (0.00-0.20); Basophils % (auto) 0.1 %; Immature Granulocytes # (auto) 0.07 K/uL (0.01-0.20); Immature Granulocytes % (auto) 0.8 %; Lymphocytes # (auto) 0.32 K/uL (1.20-3.40); Lymphocytes % (auto) 3.7 %; Monocytes # (auto) 0.39 K/uL (0.11-0.59); Monocytes % (auto) 4.5 %; Neutrophils # (auto) 7.93 K/uL (1.40-6.50); Neutrophils % (auto) 90.9 %
[2024-08-04 12:19] LABS: Adenovirus PCR Not Detected (NotDetected); Bordetella parapertussis PCR Not Detected (NotDetected); Bordetella pertussis PCR Not Detected (NotDetected); Chlamydia pneumoniae PCR Not Detected (NotDetected); Coronavirus 229E PCR Not Detected (NotDetected); Coronavirus CoV-2 (COVID19)PCR Not Detected (NotDetected); Coronavirus HKU1 PCR Not Detected (NotDetected); Coronavirus NL63 PCR Not Detected (NotDetected); Coronavirus OC43PCR Not Detected (NotDetected); Human Metapneumovirus PCR DETECTED (NotDetected); Influenza A PCR Not Detected (NotDetected); Influenza B PCR Not Detected (NotDetected); Mycoplasma pneumoniae PCR Not Detected (NotDetected); Parainfluenza Virus 1 PCR Not Detected (NotDetected); Parainfluenza Virus 2 PCR Not Detected (NotDetected); Parainfluenza Virus 3 PCR Not Detected (NotDetected); Parainfluenza Virus 4 PCR Not Detected (NotDetected); Respiratory Syncytial VirusPCR Not Detected (NotDetected); Rhinovirus/Enterovirus PCR Not Detected (NotDetected)
--- NOTE | 2024-08-04 12:51 | History & Physical Report ---
Date of Service August 04, 2024 Assessment & Plan (1) Human metapneumovirus (hMPV) pneumonia: Plan: Patient presented on 08/04 worsening cough and SOB x 1 week CXR on arrival revealed bilateral lower lung field opacities hMPV (+) on arrival Contact isolation precautions Supplemental oxygen as needed Cefepime 2000 mg IV q8h Guaifenesin 600 mg p.o. q12h (2) Elevated troponin: Plan: Elevated on arrival; trend to peak Clinically, patient does endorse chest tightness Continuous telemetry monitoring (3) Atrial fibrillation: Plan: Rate controlled Continue Eliquis, metoprolol (4) Rheumatoid arthritis: Plan: Continue folic acid In the setting of acute infection, will plan to hold methotrexate on Sunday 08/06 (5) HOCM (hypertrophic obstructive cardiomyopathy): Plan: Chronic; noted (6) Hypertension: Plan: Continue home antihypertensives (7) Hyperlipidemia: Plan [facility] Heart healthy diet VTE PPx: Eliquis History of Present Illness Chief Complaint: Weakness Primary Care Provider: SULMA Barajaste is an 83-year-old female with PMH of atrial fibrillation (on Eliquis), CHF, LBBB, CKD stage III, HTN, GERD, anxiety, rheumatoid arthritis, HOCM, diverticulitis, and IBS. She presented via EMS on 08/04 for SOB, productive cough, congestion, sore throat, intermittent fever, and weakness x 1 week. She reports her fever has been up to 102 F at [place]. Her productive cough has been bringing up "brownish-orange globs". She has been taking Tylenol as needed for fever at home, and ibuprofen as needed for additional symptoms. [place] manages her medicine at home, but she does report she manages Lipitor, Tylenol, and Zofran on her own. She did take her regular morning medicine today. While she denies pleuritic chest pain, she does report she feels discomfort and chest tightness at time, mainly in her lower anterior rib cage/flanks bilaterally. She denies any history of aspiration events. She is not on supplemental oxygen at baseline or CPAP at night. No history of DVT/PE to her knowledge. She denies smoking or tobacco use. She ambulates with a walker at baseline. In regard to her penicillin allergy, she reports that she had been taking penicillin regularly for dental work, but then developed a rash after taking it once. Patient is hypertensive at 144/78 and mildly febrile at 37.7 C at time admission; SpO2 92% on 2L NC. ED course: Cefepime 2000 mg IV ROS: Patient endorses fever, headache, congestion, sore throat, chest pressure, SOB, productive cough, discomfort with deep breaths, and loose stool. Patient denies abdominal pain, nausea, or vomiting. Allergies Allergy/AdvReac Type Severity Reaction Status Date / Time bee venom protein (honey bee) Allergy Intermediate BEE/WASP-NAUSEA Verified 12/06/23 14:19 AND DIZZINESS Penicillins Allergy Intermediate RASH (PER Verified 12/06/23 14:19 PT, WAS A LONG TIME AGO)AMOXICILLIN AND PCN amoxicillin [From Augmentin] Allergy Mild Unknown Verified 12/06/23 14:19 clavulanic acid Allergy Mild Unknown Verified 12/06/23 14:19 [From Augmentin] esomeprazole Allergy Mild NAUSEA Verified 12/06/23 14:19 VOMITING magnesium citrate Allergy Mild projectile Verified 12/06/23 14:19 vomitting antipyrine Allergy Unknown RASH AND Verified 12/06/23 14:19 BLISTERS benzocaine Allergy Unknown dental - Verified 12/06/23 14:19 tingling on tongue hydroxychloroquine Allergy Unknown UNKNOWN Verified 12/06/23 14:19 misoprostol Allergy Unknown UNKNOWN Verified 12/06/23 14:19 phenylephrine Allergy Unknown UNKNOWN Verified 12/06/23 14:19 pseudoephedrine Allergy Unknown UNKNOWN Verified 12/06/23 14:19 Serotonin 5HT-3 Antagonists Allergy Unknown UNKNOWN Verified 12/06/23 14:19 Sulfa (Sulfonamide Allergy Unknown UNKNOWN Verified 12/06/23 14:19 Antibiotics) citalopram AdvReac Mild GI UPSET Verified 12/06/23 14:19 clarithromycin AdvReac Mild GI UPSET Verified 12/06/23 14:19 denosumab [From Prolia] AdvReac Unknown Unknown Unverified 12/06/23 14:19 Home Medications Medication Instructions Recorded Confirmed Type acetaminophen 500 mg tablet 1,000 mg PO Q8H PRN Pain 08/17/18 08/04/24 History (Tylenol Extra Strength) aspirin 81 mg tablet,delayed 81 mg PO QAM 08/17/18 08/04/24 History release atorvastatin 10 mg tablet 10 mg PO HS 08/17/18 08/04/24 History calcium 600 mg (as 2 tab PO QAM 08/17/18 08/04/24 History carbonate)-vitamin D3 5 mcg (200 unit) capsule (Calcium 600 + D(3)) cholecalciferol (vitamin D3) 25 1,000 unit PO QAM 08/17/18 08/04/24 History mcg (1,000 unit) capsule (Vitamin D3) fluticasone propionate 50 2 spray intranasal [facility] 08/17/18 08/04/24 History mcg/actuation nasal spray,suspension lorazepam 0.5 mg tablet 0.5 mg PO TID PRN Anxiety 08/17/18 08/04/24 History pantoprazole 40 mg tablet,delayed 40 mg PO [facility] 08/17/18 08/04/24 History release multivitamin 1 tab PO DAILY 08/05/22 08/04/24 History calcium carbonate 500 mg PO DAILY 12/06/23 08/04/24 History cetirizine 10 mg tablet 10 mg PO DAILY 12/06/23 08/04/24 History melatonin 3 mg capsule 9 mg PO HS 12/06/23 08/04/24 History ondansetron 4 mg disintegrating 4 mg PO Q8H PRN Nausea And Vomiting 12/06/23 08/04/24 History tablet tramadol 50 mg tablet 50 mg PO Q6H PRN Pain 12/06/23 08/04/24 History methotrexate sodium 2.5 mg tablet 22.5 mg (9 x 2.5 mg) PO Lopez@0900 #0 12/09/23 08/04/24 Rx tabs polyethylene glycol 3350 17 gram 17 g PO BID #30 ea 12/09/23 08/04/24 Rx oral powder packet (Miralax) amiodarone 200 mg tablet 200 mg PO DAILY 04/23/24 08/04/24 History apixaban 2.5 mg tablet (Eliquis) 2.5 mg PO BID 04/23/24 08/04/24 History metoprolol succinate 25 mg 25 mg PO DAILY 04/23/24 08/04/24 History tablet,extended release 24 hr folic acid 0.8 mg capsule 1.2 mg PO 6XWK 08/04/24 08/04/24 History guaifenesin 600 mg tablet, 600 mg PO Q12H PRN Congestion 08/04/24 08/04/24 History extended release 12 hr ibuprofen 200 mg tablet 200 mg PO Q6H PRN Pain 08/04/24 08/04/24 History Past Med/Surg History Problem List (Updated 08/04/24 @ 13:31 by Derrick Zaldivar PA-C) Elevated troponin Human metapneumovirus (hMPV) pneumonia Sinusitis Complete left bundle branch block (LBBB) (Acute) CHF (congestive heart failure) (Acute) Hypoxemia (Acute) Pneumonia (Acute) Atrial fibrillation Atrial fibrillation with rapid ventricular response Pneumonia (Acute) Leukocytosis (Acute) Hypoxia (Acute) SOB (shortness of breath) (Acute) Elevated troponin (Acute) Precordial chest pain (Acute) Left lower lobe pneumonia Mitral valve mass DVT prophylaxis Chronic kidney disease, stage 3a Thrombocytopenia COVID (Acute) Acute dehydration (Acute) Elevated troponin (Acute) Hypotension (Acute) Hypertension Hyperlipidemia GERD (gastroesophageal reflux disease) Anxiety Rheumatoid arthritis HOCM (hypertrophic obstructive cardiomyopathy) COVID Weakness (Acute) Heart valve disease Chronic diastolic heart failure Elevated troponin SVT (supraventricular tachycardia) Hypomagnesemia (Acute) Anemia Electrolyte abnormality DVT prophylaxis Sepsis Enteritis (Acute) GI bleed (Acute) Diarrhea (Acute) Vomiting (Acute) Acute dehydration (Acute) Encounter for pre-operative examination Chronic sinusitis Chronic otitis media of left ear Mitral valve prolapse (Chronic) IBS (irritable bowel syndrome) (Chronic) Diverticulitis (Chronic) Lumbar stenosis with neurogenic claudication (Chronic) Medical History Hypertrophic cardiomyopathy with LVOT and LEYDA PONV (postoperative nausea and vomiting) Lactose intolerance Osteoporosis Kidney stones passed on own Hiatal hernia HOCM (hypertrophic obstructive cardiomyopathy) Surgical History Hx of mastoidectomy History of lumbar spinal fusion History of tonsillectomy and adenoidectomy History of endoscopic sinus surgery History of cataract surgery right and left History of appendectomy Social History Smoking Status: Never smoker Second Hand Exposure: No; Do You Dip or Chew Tobacco: No; Hx Alcohol Use: No Hx Substance Use: No Preferred Language: Libyan Communication Ability: Effective Visual Impairment: No Limitations Cherry Cutter Required: No Beliefs That Will Affect Care: None Current Living Situation: Personal Care Facility Current Living Situation Comment: [place] Feels Safe at Home: Yes Assistive Devices: Cane and Walker Review of Systems Review of Systems: See HPI above Physical Exam Physical Exam: General: no acute distress; non-toxic appearing; frail appearing; cooperative; SpO2 95% on 2L NC HEENT: normocephalic, atraumatic; no scleral icterus; PERRLA w/ EOMs intact; vision intact; hard of hearing Neck: supple; trachea midline Skin: warm, dry without signs of tenting; no cyanosis; no rashes, bruising, lesions, or erythema noted CV: chest wall NTP; RRR; S1/S2 normal; 3/6 ejection murmur auscultated at the second ICS MCL s; bounding pulses intact and symmetric at radial, DP, and PT Lungs: no acute respiratory distress; symmetrical chest wall expansion; clear breath sounds across all lung gooden w/o adventitious sounds; no wheezing ABD: Soft, NTP; BS present; no rebound/guarding; no distention MSK: no tics or fasciculations; no edema noted in the LEs b/l, nonerythematous Neuro: A&Ox3; normal mood and affect; fluent speech; no focal deficits; sensation grossly intact in the LEs b/l Results & Data Results & Data Vital Signs (Past 12 Hours) Vital Signs Temp Pulse Resp BP Pulse Ox O2 Del Method O2 Flow Rate 08/04/24 10:59 86 08/04/24 10:55 87 20 92 Nasal Cannula 08/04/24 10:55 92 Nasal Cannula 2 08/04/24 10:55 37.7 C H 87 20 144/78 H 91 Room Air Laboratory Results Abnormal lab results 08/04/24 08/04/24 Range/Units 11:09 11:27 RBC 3.98 L (4.20-5.40) M/uL Hgb 10.3 L (12.0-16.0) g/dl Hct 33.0 L (37.0-47.0) % MCHC 31.2 L (32.0-36.0) g/dL RDW Std Deviation 59.3 H (36.4-46.3) fL RDW Coeff of Matteo 20.0 H (11.5-14.5) % Neut # (Auto) 7.93 H (1.40-6.50) K/uL Lymph # (Auto) 0.32 L (1.20-3.40) K/uL Plt Count ,Citrate 89 L (130-400) K/uL Sodium 134 L (136-145) mmol/L Potassium 3.3 L (3.5-5.1) mmol/L Glucose 137 H (70-99(Fasting)) mg/dl AST 40 H (13-39) U/L Troponin I High Sens 48.5 H (0-14) pg/ml Globulin 2.4 L (2.5-4.0) gm/dl Human Metapneumovir PCR DETECTED A (NotDetected) Diagnostic Findings Chest X-Ray 08/04/24 10:52 XR chest 1V portable CLINICAL HISTORY: Chest pain, nonspecific TECHNIQUE: Single frontal radiograph of the chest was obtained. Comparison: Comparison is made to chest radiograph 04/25/2024 FINDINGS: No lines and tubes are seen. Cardiomegaly is noted. Bilateral lower lung predominant airspace opacities are seen. Likely [id number] left pleural effusion. IMPRESSION: 1. Bilateral lower lung predominant airspace opacities which may represent atelectasis, pneumonia, and/or aspiration. 2. Small moderate left pleural effusion. ACT 112: Negative or not required by law. Electronically signed by: Martell Webster M.D. 08/04/2024 11:29 AM ECG Additional Comments: ECG revealed NSR at 80 bpm; QTc 521 (caution use of QT prolonging agents) Code Status & VTE Plan Code Status DNR/DNI VTE Prophylaxis Plan VTE Prophylaxis will be ordered: Yes Supervising Physician Co-Signing Physician Notes I have personally seen, evaluated and examined the patient. I have also personally discussed the management of the patient with the resident physician/EUNICE and I agree with the exam findings documented in the history and physical examination and the documented assessment and plan unless otherwise stated below. Brief Exam: In general pleasant 83-year-old female. She states she feels better on the oxygen therapy currently. She denies any current chest tightness or chest pain. It appears her troponin is mildly chronically elevated but it is a little bit higher than it has been in the past 48.5. EKG is reassuring. She is alert and oriented at the time my exam. HEENT: Normocephalic atraumatic. Heart: Irregular history of A-fib. Faint 2 out of 6 systolic ejection murmur. Right sternal border. Lungs: Diminished but essentially clear I do not appreciate adventitious sounds. Abdomen: Soft nontender with positive bowel sounds. Extremities: Intact with no significant edema. Neurologically: Alert and oriented with no focal deficit. She does have some chronic debility. Typically ambulates with a walker this in the room. Assessment/plan: As discussed above. Will repeat a stat troponin now and repeat 1 in 3 to 4 hours. Pending these troponins if they trend upward consider aspirin therapy and echocardiogram and cardiology consultation if they remain flat would not do further workup. Please refer to orders for further planning. PG Care Time/CCT Total # of Minutes Spent Total Time Spent with Patient: Total time spent is greater than 50% in coordination of care (as documented) at patient's floor/unit and/or counseling patient: Coding [place] [address] INT INP/OBS CARE 3/75MIN Patient Type Established Medical Decision Making High Complexity Diagnoses Human metapneumovirus (hMPV) pneumonia J12.3 Elevated troponin R79.89 Atrial fibrillation I48.91 Rheumatoid arthritis M06.9 HOCM (hypertrophic obstructive cardiomyopathy) I42.1 Hypertension I10 Hyperlipidemia E78.5
[2024-08-04] MEDS: POTASSIUM CHLORIDE CRTAB 20 MEQ TABCR PO STA (14:22)
--- NOTE | 2024-08-04 15:13 | Electrocardiogram Report ---
Test Reason : Blood Pressure : */* mmHG Vent. Rate : 80 BPM Atrial Rate : 80 BPM P-R Int : 186 ms QRS Dur : 150 ms QT Int : 452 ms P-R-T Axes : 89 -34 126 degrees QTcB Int : 521 ms Normal sinus rhythm Left axis deviation Left bundle branch block Abnormal ECG When compared with ECG of 23-Apr-2024 15:28, No significant change was found Confirmed by Wali Song ([id number]) on 08/04/2024 3:13:14 PM Referred By: Confirmed By: Wali Song
--- OUTSIDE RECORDS SUMMARY | 2024-08-04 15:17 | External Medical Summary ---
Author Name Unknown Address Unknown Organization [id number][place] [place] [address] [facility] [place] [id number] Laboratory Report Ordering Provider Test Date Status USMAN COLLAZO 06/01/2024 10:59:02 Final Observation Date Value Abnormality Reference (Units ) Status SYNC LEUKOCYTES IN BLOOD BY AUTOMATED COUNT 06/01/2024 10:59:02 7.85 4.00-10.80 (K/uL) Final Segs 06/01/2024 10:59:02 63.9 40.0-75.0 (%) Final Lymphs % 06/01/2024 10:59:02 26.2 18.0-42.0 (%) Final Monos 06/01/2024 10:59:02 7.3 1.0-11.0 (%) Final Eosinophils 06/01/2024 10:59:02 1.8 0.0-6.0 (%) Final Basos 06/01/2024 10:59:02 0.3 0.0-2.0 (%) Final Immature Granulocyte, Percent 06/01/2024 10:59:02 0.5 0.0-2.0 (%) Final Absolute Segs 06/01/2024 10:59:02 5.02 1.80-7.70 (K/uL) Final Lymphs, absolute 06/01/2024 10:59:02 2.06 1.00-4.80 (K/ul) Final Monos, Abs 06/01/2024 10:59:02 0.57 0.00-1.10 (K/uL) Final Eos, Abs 06/01/2024 10:59:02 0.14 0.00-0.70 (K/uL) Final Basos, Abs 06/01/2024 10:59:02 0.02 0.00-0.20 (K/uL) Final Immature Granulocytes, Number 06/01/2024 10:59:02 0.04 0.00-0.20 (K/uL) Final Performing Location [facility] [place] [facility] [place] [address] [facility] [address]
--- OUTSIDE RECORDS SUMMARY | 2024-08-04 15:17 | External Medical Summary ---
Author Name Unknown Address Unknown Organization [id number]:[facility] – [place] [address] [place] [id number] Laboratory Report Ordering Provider Test Date Status USMAN COLLAZO 06/01/2024 10:59:02 Final Observation Date Value Abnormality Reference (Units ) Status WBC, Total 06/01/2024 10:59:02 7.85 4.00-10.80 (K/uL) Final RBC 06/01/2024 10:59:02 3.83 3.85-5.15 (M/uL) Final Hemoglobin 06/01/2024 10:59:02 10.2 Below low normal 12.0-15.3 (g/dL) Final HCT 06/01/2024 10:59:02 34.3 Below low normal 36.0-45.2 (%) Final MCV 06/01/2024 10:59:02 89.6 81.5-97.5 (fL) Final MCH 06/01/2024 10:59:02 26.6 27.0-34.0 (pg) Final MCHC 06/01/2024 10:59:02 29.7 32.0-36.0 (g/dL) Final RDW 06/01/2024 10:59:02 18.3 11.5-15.5 (%) Final Platelets 06/01/2024 10:59:02 151 140-400 (K/uL) Final MPV 06/01/2024 10:59:02 11.2 6.6-11.1 (fL) Final Nucleated erythrocytes/100 leukocytes [Ratio] in Blood by Automated count 06/01/2024 10:59:02 0 <=0 (/100 WBCs) Final Performing Location [facility] [place] - [address] [place] [address]
--- OUTSIDE RECORDS SUMMARY | 2024-08-04 15:17 | External Medical Summary | Summary of Care ---
Author Name Unknown Organization [facility] Address [address] [place] [facility] [place] [address] Phone [phone] Care Team Providers Care Extrusion Manager Name Role Phone Aaron Wolf MD Primary Care Provider [phone] Reason for Visit * Reason Onset Date Comments Rheum Follow Up Follow up - RA Medication Administration 05/30/2024 Flu an d/or Pneumo Inj Encounter Details Date Type Department Care Team (Late st Contact Info) Description 05/30/2024 10:00 AM EDT Office Visit Rheumatology [place] [id number] [place] [address] Bethel Jones MD [facility] [place] [address] Rheumatoid arthritis of multiple sites without rheumatoid factor (HCC)*; Senile osteoporosis; Encounter for therapeutic drug monitoring; Need for prophylactic vaccination and inoculation against influenza Allergies Active Allergy Reactions Criticality Noted Date Comments Triprolidine-Pseudoephedrin e 05/22/2015 Anefrin Nasal [place] 08/12/2018 Amoxicillin 04/04/2004 Antipyrine 03/09/2006 Rash and [...] as of this encounter (statuses as of 05/30/2024) Medications Medication Sig Dispensed Refills Start Date [...] daily . Takes Lactaid as needed Active Metoprolol Succinate ER 25 MG Oral [...] A WEEK 108 Tablet 1 03/03/2024 Active Atorvastatin Calcium 10 MG Oral Tablet (Lipitor)Indications: Dyslipidemia, goal LDL below 160 TAKE 1 TABLET IN THE MORNING 90 Tablet 3 05/16/2024 Active predniSONE 5 MG Oral Tablet (Deltasone) TAKE ONE AND ONE-HALF TABLETS IN THE MORNING 135 Tablet 05/16/2024 Active Hospital, Clinic, or Other Facility Administered Medication Ordered Dose Route Frequency Start Date End Date Status Albuterol Sulfate (Proventil) (2.5 MG/3ML) 0.083% inhalation solution 2.5 mgIndications:PAF (paroxysmal atrial fibrillation) ([facility]) 2.5 mg NEBULIZER PRN 02/28/2024 Activ e Albuterol Sulfate (Proventil) (5 MG/ML) 0.5% *conc* inhalation solution 2.5 mgIndications:PAF (paroxysmal atrial fibrillation) ([facility]) 2.5 mg NEBULIZER PRN 02/28/2024 Activ e documented as of this encounter (statuses as of 05/30/2024) Active Problems Problem Noted Date Diagnosed Date Rheumatoid arthritis of [facility] sites without rheumatoid factor 09/01/2021 Encounter for [...] as of this encounter (statuses as of 05/30/2024) Resolved Problems Problem Noted Date Diagnosed Date Resolved Date PURE HYPERCHOLESTEROLEM 01/13/200507/02 Overview: Per Lipid Taxonomy. 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 factor 09/01/19 22 Mitral valve prolapse 2011 documented as of this encounter (statuses as of 05/30/2024) Immunizations Name Administration Dates Next Due COVID-19 mRNA, LNP-s, No Pre serve, 2-Dose Series (Moderna) 04/28/2021,10/22/2020,09/24/2020 COVID-19, MRNA-LNP, 23-24, P F, 30 MCG/0.3 mL, 12 YRS AND ABOVE, IM ([employer]) 05/13/2023 COVID-19, mRNA, LNP-s, PF, B ooster, 100mcg/0.5mg (Moderna) 01/13/2022 Covid-19, Mrna, Lnp-s, Pf, B ivalent, 30 Mcg, IM, 12 yrs and above (Pfizer) 06/02/2022 Pneumococcal Conjugate Vacc, 13 Valent (Prevnar) 05/07/2016 Pneumococcal Conjugate Vacci ne, 7 Valent 12/09/2005 RSV Vac., Recomb, Adjuvant, PF,0.5 Ml (Arexvy) 06/05/2023 Season Influenza, Quad, PF, Adjuvanted, 65+ Yrs, IM (FLUAD) 05/13/2023 Seasonal Influenza Vac., MDV , IM, 0.5 mL (Fluzone) 05/19/2016 Seasonal Influenza Virus Vac cine, Unspecified Formulation 05/19/2016,05/26/2005,05/23/2004,2000,06/29/2000 Seasonal Influenza, High Dos e, Trivalent, PF, IM (Fluzone HD) 05/30/2024,05/10/2020 Seasonal Influenza, Quadriva lent Hd, 65+ Yrs 05/13/2023,06/02/2022,05/10/2021,2019 Seasonal Influenza, Quadriva lent, No Preserve, IM 05/08/2015 Seasonal Influenza, Trivalen t, Adjuvanted, 65+ YRS, [...] Information Value Date Recorded Sex Assigned at Female 05/30/2024 9:08 AM EDT Gender Identity Female 05/30/2024 9:08 AM EDT Sexual Orientation Straight 05/30/2024 9: 08 AM EDT Job Start Date Occupation Industry Not on file Not on file Not on file documented as of this encounter Last Filed Vital Signs Vital Sign Reading Time Taken Comments Blood Pressure - - Pulse - - Temperature 36.3 C (97.3 F) 05/30/2024 9:32 AM ED T Respiratory Rate - - Oxygen Saturation - - Inhaled Oxygen Concentration - - Weight 49.4 kg (109 lb) 05/30/2024 9:32 AM EDT Height - - Body Mass Index 21.12 04/06/2024 12:49 PM EDT documented in this encounter Patient Instructions * Patient Instructions* Shirin Hidalgo LPN - 05/30/2024 9:57 AM EDT ~~PATIENT INSTRUCTIONS FOR FLU SHOT~~ Possible side effects of influenza vaccine, (flu shot), are usually mild and include: 1. Soreness or redness at injection site 2. Low grade fever 3. Body aches You may use Tylenol/Acetaminophen as needed for these symptoms. LET YOUR DOCTOR KNOW IMMEDIATELY IF YOU HAVE DIFFICULTY BREATHING OR SWALLOWING, EXPERIENCE ITCHINGOF FEET OR HANDS, HAVE SWELLING OF EYES, FACE OR INSIDE OF NOSE. documented in this encounter Progress Notes * Shirin Hidalgo LPN - 05/30/2024 9:56 AM EDT PRE - ADMINISTRATION DOCUMENTATION Are you experiencing any cold symptoms or fever? No Have you had Guillain-[place] Syndrome (an illness that causes paralysis) within the last 6 weeks? No Have you had the flu shot in the past? YES Have you ever had a reaction to the flu shot? No Shirin Hidalgo LPN, 05/30/2024 9:56 AM Immunization Administration Documentation Time Out Procedure Performed: Yes Patient Identified (Ask Name/Date of ): Yes Does the patient have a fever greater than 101 degrees today? No Patient allergic to latex? No C Stock: No Immunization(s) verified: Yes, Immunization Name: Flu, VIS Sheet(s) given: Yes Verified Side and Site: Yes Verified Shot(s) with Parent(s)/Patient: Yes * Bethel Jones MD - 05/30/2024 9:34 AM EDT Images from the original note were not included. Assessment and Plan Rheumatoid arthritis of multiple sites without rheumatoid factor (HCC) - CBC with WBC Differential; Standing - Comprehensive Metabolic Panel; Standing Senile osteoporosis Encounter for therapeutic drug monitoring - CBC with WBC Differential; Standing - Comprehensive Metabolic Panel; Standing Need for prophylactic vaccination and inoculation against influenza - Influenza Vac., Trivalent, HD, PF, 65 and above, 0.5 mL IM (FLUZONE HD) Her rheumatoid arthritis appears to be stable on methotrexate 9 tabs weekly. Will continue with that dose along with her prednisone. She does not wish to be treated for osteoporosis and discussed patient safety and fall reduction. Will continue with labs every 3 months and gave her lab orders are bring to her facility to get done. Will get the flu vaccine today. Return to clinic next summer. Rheumatology Synopsis: [facility] RA SYNOPSIS Date of RA Diagnosis: [birth year] (07/13/2023 11:00 AM) Current Treatment: MTX (07/13/2023 11:00 AM) Previous Treatment: -- (gold treatment) (07/13/2023 11:00 AM) 2009 Classification Criteria: Y (07/13/2023 11:00 AM) Seropositive or seronegative: Seronegative (07/13/2023 11:00 AM) Disease activity: Controlled Patient History History of Present Illness HPI:83 year old female presented to rheumatology clinic for Rheum Follow Up (Follow up - RA) and Medication Administration (Flu and/or Pneumo Inj) She reports that her MSK pains are getting worse. She has noted more enlargement to her knuckles. She has chronic left shoulder pain for many years. She reports worsening low back pain. She notes hertremor is getting worse. Feels like she may have carpal tunnel in her hands. States her fingers cancatch at times. She feels her tendons are tighter on the volar aspect. She has had a couple of hospi talizations since last visit - afib/pneumonia, sinusitis. She reports her had covid in . She did not get sick. She would like the flu vaccine today. She had a dexa yesterday. Severe osteoporosis noted. No comparison study. She had [address] Guerin and did not tolerate the 3rd dose - got severe pain in the left jaw, sinus infection and ear infection on left. She has many drug intolerances as well and not interested in any other treatments. ROS: Review of Systems was asked and the following other significant symptoms are present: tremor, jointpains, back pains Subjective Patient's past history, medications, and allergies were reviewed. Objective Physical Exam Temp 36.3 C (97.3 F) (Infrared ) | Wt 49.4 kg (109 lb) | BMI 21.12 kg/m | BSA 1.45 m Constitutional: Elderly female, no acute distress HEENT: normal: normocephalic, atraumatic; no masses, tenderness, or adenopathy Eyes: PERRLA, sclera and conjunctiva normal Neck: supple, no adenopathy CV: normal heart sounds, normal rate, positive murmur Chest: normal respiratory effort, lungs clear to auscultation and percussion Abdomen: normal: soft, bowel sounds normal, no masses, tenderness or organomegaly Musculoskeletal: No definite synovitis noted on exam. MCP subluxation noted especially of the 2nd and 3rd MCPs bilaterally. No knee effusions. Good muscle strength. Mild thoracic kyphosis noted MSK/Joint exam (Homunculus) MSK Exam findings: Homunculus exam Studies: Labs and Imaging studies reviewed with pertinent findings noted below: Disease Treatment Response CDAI Scoring Patient Global: 70 / 100 Provider Global: 20 / 100 Tender (HERRERA-28): 0 / 28 Swollen (HERRERA-28): 0 / 28 CDAI: 9 CDAI (Clinical Disease Activity Index) [facility] Outcomes measures: Serial CDAI: Synopsis SmartLink 05/30/2024 10:00 07/13/2023 10:40 CDAI CDAI 9 9 - Serial CDAI: - Yes - Remission: - Yes - low disease activity Currently on csDMARD: Yes Currently on Biologic DMARD: No Vaccination status: COVID: Vaccine and/or Health maintenance status Incomplete Influenza:Vaccine complete for this season Pneumococcal:Vaccine and/or [...] Up: Return in about 9 months (around 02/27/2025). documented in this encounter Nursing Notes * Shirin Hidalgo LPN - 05/30/2024 9:31 AM EDT Chief Complaint Patient presents with Rheum Follow Up Follow up - RA documented in this encounter Plan of Treatment Upcoming Encounters Date Type Department Care Team (Late st Contact Info) Description 06/27/2024 11:00 AM EST Office Visit Cardiology, [facility] [address] [place] [address] Devon Juarez MD [address] [place] [address] 02/27/2025 10:00 AM EDT Office Visit Rheumatology [address] [place] [address] Kole Kaufman CRNP [facility] [place] [address] Scheduled Orders Name Type Priority Associated Diagnoses Orde r Schedule CBC WITH WBC DIFFERENTIAL Lab Routine Rheumatoid arthritis of multiple sites without rheumatoid factor (HCC) Encounter for therapeutic drug monitoring Every 3 Months for 4 Occurrences starting 05/30/2024 until 06/02/2025 COMPREHENSIVE METABOLIC PANEL Lab Routine Rheumatoid arthritis of multiple sites without rheumatoid factor (HCC) Encounter for therapeutic drug monitoring Every 3 Months for 4 Occurrences starting 05/30/2024 until 06/02/2025 Health Maintenance Due Date Last Done Comments Depression Screening 1952 Zoster Vaccines (1 of 2) 1960 *BISPHONATE OR OTHER ACCEPTABLE MEDICATION NEEDED FOR OSTEOPOROSIS (REFER TO SMARTSET #1146) 08/03/2014 Colonoscopy 02/19/2015 02/19/2010, 01/29/2005 Pneumococcal Vaccine: 65+ Years (3 of 3 - PPSV23 or PCV20) 07/02/2016 05/07/2016, 05/17/2001 COVID-19 Vaccine (2023- season) 2024 05/13/2023, 05/13/2023, 06/02/2022, Additional history exists DTap/Tdap Vaccines (2 - Td or Tdap) 09/19/2025 09/19/2015, 12/09/2005 DXA Scan 05/29/2026 05/29/2024, 12/2008, 05/07/2009, Additional history exists RETIRED - COLONOSCOPY-EVERY 5 YRS AGES 18-100 Discontinued 02/19/2010, 02/19/2010, 07/05/2006 (Done elsewhere), Additional history exists VITAMIN D LEVEL ONCE IN A LIFETIME-USE SMARTSET# 80283 Completed 01/01/2022 Influenza Vaccine (FLU shot) Completed 05/30/2024, 05/13/2023, 05/13/2023, Additional history exists HPV (Gardasil) Vaccine Aged Out No lo nger eligible based on patient's age to complete this topic Hepatitis B Vaccine Aged Out No longe r eligible based on patient's age to complete this topic MENINGOCOCCAL (MENACTRA/MENVEO) Aged Out No longer eligible based on patient's age to complete this topic documented as of this encounter Medical Devices Implanted Type Area Account Auditor Device Identifier Shelf Expiration Date Model / Serial / Lot Lens Intraoc 23.5 - [id number] - [id number] Implanted:Qty: 1 on 03/08/2018 by Pop Gutierrez MD at OR [facility] Left: Eye [employer]OMB 09/01/2022 [id number] / [id number] / [id number] Lens Intraoc 21.5 - [id number] - [id number] Implanted:Qty: 1 on 03/22/2018 by Pop Gutierrez MD at OR [facility] Right: Eye BA[employer]CH [employer] LOMB 10/30/2022 [id number] / [id number] / [id number] documented as of this encounter Visit Diagnoses Diagnosis Rheumatoid arthritis of multiple sites without rheumatoid factor (HCC)- Primary Rheumatoid arthritis Senile osteoporosis Encounter for therapeutic drug monitoring Need for prophylactic vaccination and inoculation against influenza documented in this encounter Advance Directives Documents on File Type Date Recorded Patient Lead Nitrate Processor Expl anation Advance Directives and Living Will 11/14/2003 Power of Import Export Manager 11/14/2003 * Full Code (Latest Code Status on File) Date Activated Date Inactivated Comments 03/22/2018 6:30 AM 03/22/2018 1:21 PM This order r eflects the patients wishes and were consensually agreed upon. * Full Code Date Activated Date Inactivated Comments 03/08/2018 7:53 AM 03/08/2018 2:47 PM This order ref lects the patients wishes and were consensually agreed upon. Care Teams Extrusion Manager Relationship Specialty Start Date End Date Aaron Wolf MD [address] [place] [address] PCP - General Critical Care Medicine 02/26/20 documented as of this encounter
--- OUTSIDE RECORDS SUMMARY | 2024-08-04 15:17 | External Medical Summary | Summary of Care ---
Author Name Unknown Organization [facility] Address [address] [place] [address] Phone [phone] Care Team Providers Care Cad Technician Name Role Phone Aaron Wolf MD Primary Care Provider [phone] Reason for Visit * Reason Onset Date Comments Test Results 06/16/2024 Encounter Details Date Type Department Care Team (Late st Contact Info) Description 06/16/2024 Telephone Rheumatology [facility] [place] [address] [facility] [place] [address] Bethel Jones MD [address] [place] [address] Test Results Allergies Active Allergy Reactions Criticality Noted Date Comments Triprolidine-Pseudoephedrin e 05/22/2015 Anefrin Nasal [employer] 08/12/2018 Amoxicillin 04/04/2004 Antipyrine 03/09/2006 Rash and [...] as of this encounter (statuses as of 06/16/2024) Medications MULTIVITAMIN TABS OR daily 0 2 Active ASPIRIN 81 MG OR CHEW take one tablet daily 100 3 3 Active TYLENOL 500 MG PO CAPS Take by mouth 5 Tablets daily . 0 6 Active FLONASE INHA 50 MCG/DOSE NAIndications:Associate Financial Representative sherine sinusitis two sprays each nostril once [...] A WEEK 108 Tablet 1 4 Active Atorvastatin Calcium 10 MG Oral Tablet (Lipitor)Indicatio ns:Dyslipidemia, goal LDL below 160 TAKE 1 TABLET IN THE MORNING 90 Tablet 3 4 Active predniSONE 5 MG Oral Tablet (Deltasone) TAKE ONE AND ONE-HALF TABLETS IN THE MORNING 135 Tablet 4 Active Hospital, Clinic, or Other Facility Administered [...] as of this encounter (statuses as of 06/16/2024) Active Problems Problem Noted Date Diagnosed Date Rheumatoid arthritis of [facility] sites without rheumatoid factor 09/01/2021 Encounter for therapeutic drug monitoring 2021 Hypertrophic obstructive cardiomyopathy (HOCM) 0 03/09/2014 Cardiac outflow obstruction 08/17/2013 Left ventricular outflow tract obstruction 02/13 LBBB (left bundle branch block) 08/09/2012 DYSLIPIDEMIA, GOAL TO BE DETERMINED 07/11/2009 Overview (07/11/2009): Per Lipid Taxonomy. Other adverse food reactions, not elsewhere clas sified 05/05/2005 Irritable bowel syndrome 05/05/2005 NONALLERGIC RHINITIS 05/05/2005 Senile osteoporosis OBSESSIVE-COMPULSIVE DIS Diaphragmatic hernia Chronic sinusitis Carpal tunnel syndrome GENERALIZED ANXIETY DIS documented as of this encounter (statuses as of 06/16/2024) Resolved Problems Problem Noted Date Diagnosed Date Resolved Date ADVANCE DIRECTIVE INFORMATION 02/17/2005 06/05/2024 Overview (02/17/2005): Yes, Copy scanned at patient level in the electronic medical record.(Go to Action, Patient File to view) Patient aware they must notify their healthcare provider of changes. PURE HYPERCHOLESTEROLEM 01/13/200507/02 Overview (07/11/2009): Per Lipid Taxonomy. 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 factor 09/01/19 22 Mitral valve prolapse 2011 documented as of this encounter (statuses as of 06/16/2024) Immunizations Name Administration Dates Next Due COVID-19 mRNA, LNP-s, No Pre serve, 2-Dose Series (Moderna) 04/28/2021,10/22/2020,09/24/2020 COVID-19, MRNA-LNP, PF, 30 M CG/0.3 mL, 12 YRS AND ABOVE, IM ([employer]) 05/13/2023 COVID-19, mRNA, LNP-s, PF, B ooster, [...] Never Smokeless Tobacco: Never Comments:passive smoke at [facility] as a child Alcohol Use Standard Drinks/Week Comments No 0 (1 standard drink = 0.6 oz pur e alcohol) Comments No Sex and Gender Information Value Date Recorded Sex Assigned at Female 05/30/2024 9:08 AM EDT Legal Sex Female 4:45 AM EST Gender Identity Female 05/30/2024 9:08 AM EDT Sexual Orientation Straight 05/30/2024 9: 08 AM EDT documented as of this encounter Miscellaneous Notes * Telephone Encounter - Bethel Jones MD - 06/16/2024 3:27 PM EST [facility]. Will repeat 3 months/ documented in this encounter Plan of Treatment Upcoming Encounters Date Type Department Care Team (Late st Contact Info) Description 06/27/2024 11:00 AM EST Office Visit Cardiology, [facility] [address] [place] [address] Devon Juarez MD [address] [place] [address] 02/27/2025 10:00 AM EDT Office Visit Rheumatology [facility] [address] [facility] [place] [address] Kole Kaufman CRNP [address] [facility] [place] [address] Health Maintenance Due Date Last Done Comments Depression Screening 1952 Zoster Vaccines (1 of 2) 1960 *BISPHONATE OR OTHER ACCEPTABLE MEDICATION NEEDED FOR OSTEOPOROSIS (REFER TO SMARTSET #1146) 08/03/2014 Colonoscopy 02/19/2015 02/19/2010, 01/29/2005 Pneumococcal Vaccine: 65+ Years (3 of 3 - PPSV23 or PCV20) 07/02/2016 05/07/2016, 05/17/2001 COVID-19 Vaccine ( season) 2024 05/13/2023, 05/13/2023, 06/02/2022, Additional history exists DTap/Tdap Vaccines (2 - Td or Tdap) 09/19/2025 09/19/2015, 12/09/2005 DXA Scan 05/29/2026 05/29/2024, 12/2008, 05/07/2009, Additional history exists RETIRED - COLONOSCOPY-EVERY 5 YRS AGES 18-100 Discontinued 02/19/2010, 02/19/2010, 07/05/2006 (Done elsewhere), Additional history exists VITAMIN D LEVEL ONCE IN A LIFETIME-USE SMARTSET# 59270 Completed 01/01/2022 Influenza Vaccine (FLU shot) Completed [...] this encounter Medical Devices Implanted Type Area Chromium Plater Device Identifier Shelf Expiration Date Model / Serial / Lot Lens Intraoc 23.5 - [id number] - [id number] Implanted:Qty: 1 on 03/08/2018 by Pop Gutierrez MD at OR [facility] Left: Eye [employer]OM[employer] 09/01/2022 [id number] / [id number] / [id number] Lens Intraoc 21.5 - [id number] - [id number] Implanted:Qty: 1 on 03/22/2018 by Pop Gutierrez MD at OR [facility] Right: Eye BA[employer]CH [employer] LOMB 10/30/2022 [id number] / [id number] / [id number] documented as of this encounter Advance Directives Documents on File Type Date Recorded 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 * Full Code Date Activated Date Inactivated Comments 03/08/2018 7:53 AM 03/08/2018 2:47 PM This order ref lects the patients wishes and were consensually agreed upon. Care Teams Cad Technician Relationship Specialty Start Date End Date Aaron Wolf MD [address] [place] [address] PCP - General Critical Care Medicine 02/26/20 documented as of this encounter
--- OUTSIDE RECORDS SUMMARY | 2024-08-04 15:17 | External Medical Summary ---
Author Name Unknown Address Unknown Organization K01:[facility] - [address] [facility] [place] [address] Laboratory Report Ordering Provider Test Date Status VALEUSMAN 06/01/2024 10:59:02 Final Observation Date Value Abnormality Reference (Units ) Status BUN 06/01/2024 10:59:02 9 6-20 (mg/dL) Final Creatinine 06/01/2024 10:59:02 0.9 0.5-1.0 (mg/dL) Final Glomerular filtration rate/1.73 sq M.predicted [Volume Rate/Area] in Serum, Plasma or Blood by Creatinine-based formula (CKD-EPI) 06/01/2024 10:59:02 64 >=60 (mL/min) Final eGFR is calculated based on the CKD-EPI 2020 equation. Sodium 06/01/2024 10:59:02 138 135-146 (m mol/L) Final Potassium 06/01/2024 10:59:02 3.7 3.5-5.1 (m mol/L) Final Cl 06/01/2024 10:59:02 100 98-107 (mm ol/L) Final CO2 06/01/2024 10:59:02 28 22-32 (mmo l/L) Final Anion gap 06/01/2024 10:59:02 10 7-15 (mmol /L) Final Glucose 06/01/2024 10:59:02 126 Above high normal 70 -120 (mg/dL) Final Albumin 06/01/2024 10:59:02 3.9 3.8-5.0 (g /dL) Final AST (Aspartate aminotransferase) 06/01/2024 10:59:02 46 Above high normal 10-35 (U/L) Final Alk Phos 06/01/2024 10:59:02 68 35-130 (U/ L) Final Bilirubin, Total 06/01/2024 10:59:02 0.4 <=1 .2 (mg/dL) Final Calcium 06/01/2024 10:59:02 9.1 8.4-10.2 ( mg/dL) Final Protein 06/01/2024 10:59:02 5.9 Below low normal 6.0 -8.3 (g/dL) Final ALT (Alanine aminotransferase) 06/01/2024 10:59:02 47 Above high normal 10-35 (U/L) Final Performing Location [facility] - [address] [facility] [address]
--- OUTSIDE RECORDS SUMMARY | 2024-08-04 15:18 | External Medical Summary | Summary of Care ---
Author Name Unknown Organization [facility] Address [address] [place] [address] Phone [phone] Care Team Providers Care Woodworking Machine Operator Name Role Phone Aaron Wolf MD Primary Care Provider [phone] Reason for Visit * Reason Comments eRx-Medication Refill Encounter Details Date Type Department Care Team (Late st Contact Info) Description 05/15/2024 Refill Rheumatology [place] [id number] [place] [address] Vale Mary MD [address] [place] [address] Senile osteoporosis* Allergies Active Allergy Reactions Criticality Noted Date Comments Triprolidine-Pseudoephedrin e 05/22/2015 Anefrin Nasal [place] 08/12/2018 Amoxicillin 04/04/2004 Antipyrine 03/09/2006 Rash and [...] as of this encounter (statuses as of 05/19/2024) Medications Medication Sig Dispensed Refills Start Date [...] A WEEK 108 Tablet 1 4 Active predniSONE 5 MG Oral Tablet (Deltasone) TAKE ONE AND ONE-HALF TABLETS IN THE MORNING 135 Tablet 4 Active predniSONE 5 MG Oral Tablet (Deltasone) Take 1.5 Tablets by mouth in the morning. 135 Tablet 1 4 05/16/20 24 Discontinued Atorvastatin Calcium 10 MG Oral Tablet (Lipitor)Indication s:Dyslipidemia, goal LDL below 160 Take 1 Tablet by mouth in the morning. In the morning.. 90 Tablet 1 4 05/16/20 24 Discontinued Hospital, Clinic, or Other Facility [...] as of this encounter (statuses as of 05/19/2024) Active Problems Problem Noted Date Diagnosed Date Rheumatoid arthritis of [facility] sites without rheumatoid factor 09/01/2021 [...] as of this encounter (statuses as of 05/19/2024) Resolved Problems Problem Noted Date Diagnosed Date Resolved Date PURE HYPERCHOLESTEROLEM 01/13/200507/02 Overview: Per Lipid Taxonomy. 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 factor 09/01/19 22 Mitral valve prolapse 2011 documented as of this encounter (statuses as of 05/19/2024) Immunizations Name Administration Dates Next Due COVID-19 [...] Vac., MDV , IM, 0.5 mL (Fluzone) 05/19/2016,05/26/2005,05/23/2004,05/02,06/29/2000 07/06/2001 Seasonal Influenza Virus Vac cine, Unspecified Formulation [...] Never Smokeless Tobacco: Never Comments:passive smoke at [facility] as a child Alcohol Use Standard [...] as of this encounter Miscellaneous Notes * Addendum Note - Vale Mary MD - 05/19/2024 3:50 PM EDTAddended by: VALE MARY on: 05/19/2024 03:50 PM Modules accepted: Orders * Telephone Encounter - Vale Mary MD - 05/19/2024 3:49 PM EDT Kathy - arrange DEXA * Telephone Encounter - Cole Mace - 05/17/2024 8:37 PM EDT Received message from [facility] regarding patient needing an appointment. Patient was notified. Successfully contacted patient and provided [facility] message. * Telephone Encounter - Vinay Garces [facility] - 05/16/2024 10:09 AM EDTSigned Prescriptions: Disp Refills predniSONE 5 MG Oral Tablet (Deltasone) 135 Ta*0 Sig: TAKE ONE AND ONE-HALF TABLETS IN THE MORNING Authorizing Provider: VALE MARY Ordering User: VINAY GARCES * Telephone Encounter - Vinay Garces [facility] - 05/16/2024 9:47 AM EDT Please contact patient so that an appointment can be scheduled with her RHEUMATOLOGY provider. Refill authorized to hold patient over in the mean time. Patient was to [facility] in 9 months (around 04/13/24). Last Visit: 07/13/2023 (in office), Visit date not found (telemedicine) Next Visit: Visit date not found Thank you, Vinay Garces, PharmD Clinical Pharmacist [facility] ([facility]) [phone] 05/16/2024, 10:05 AM documented in this encounter Plan of Treatment Upcoming Encounters Date Type Department Care Team (Late st Contact Info) Description 06/27/2024 11:00 AM EST Office Visit Cardiology, [facility] [address] [place] [address] Devon Juarez MD [address] [place] [address] Scheduled Orders Name Type Priority Associated Diagnoses Orde r Schedule DEXA SCAN/BONE MINERAL AXIAL Medical Imaging Routine Senile osteoporosis Ordered: 05/19/2024 Health Maintenance Due Date Last Done Comments [...] 2024 05/13/2023, 05/13/2023, 06/02/2022, Additional history exists Influenza Vaccine (FLU shot) (#1) 2024 05/13/2023, 05/13/2023, 06/02/2022, Additional history exists DTap/Tdap Vaccines (2 - Td or Tdap) 09/19/2025 09/19/2015, 12/09/2005 RETIRED - COLONOSCOPY-EVERY 5 YRS AGES 18-100 Discontinued 02/19/2010, 02/19/2010, 07/05/2006 (Done elsewhere), Additional history exists VITAMIN D LEVEL ONCE IN A LIFETIME-USE SMARTSET# 88075 Completed 01/01/2022 HPV (Gardasil) Vaccine Aged Out No lo nger eligible based on patient's age to complete this topic Hepatitis B Vaccine Aged Out No longe r eligible based on patient's age to complete this topic MENINGOCOCCAL (MENACTRA/MENVEO) Aged Out No longer eligible based on patient's age to complete this topic documented as of this encounter Medical Devices Implanted Type Area Grounds Crew Supervisor Device Identifier Shelf Expiration Date Model / Serial / Lot Lens Intraoc 23.5 - [id number] - [id number] Implanted:Qty: 1 on 03/08/2018 by Pop Gutierrez MD at OR [facility] Left: Eye BAUSCH & LOMB 09/01/2022 [id number] / [id number] / [id number] Lens Intraoc 21.5 - [id number] - [id number] Implanted:Qty: 1 on 03/22/2018 by Pop Gutierrez MD at OR [facility] Right: Eye BAUSCH & LOMB 10/30/2022 [id number] / [id number] / [id number] documented as of this encounter Visit Diagnoses Diagnosis Senile osteoporosis- Primary documented in this encounter Advance Directives Documents on File Type Date Recorded Patient Loading Machine Operator Helper Expl anation Advance Directives and Living Will 11/14/2003 Power of Cuff Setter Overlock 11/14/2003 * Full Code (Latest Code Status on File) Date Activated Date Inactivated Comments 03/22/2018 6:30 AM 03/22/2018 1:21 PM This order r eflects the patients wishes and were consensually agreed upon. * Full Code Date Activated Date Inactivated Comments 03/08/2018 7:53 AM 03/08/2018 2:47 PM This order ref lects the patients wishes and were consensually agreed upon. Care Teams Woodworking Machine Operator Relationship Specialty Start Date End Date Aaron Wolf MD [address] [place] [address] PCP - General Critical Care Medicine 02/26/20 documented as of this encounter
--- OUTSIDE RECORDS SUMMARY | 2024-08-04 15:18 | External Medical Summary | Summary of Care ---
Author Name Unknown Organization [facility] Address [address] [facility] [place] [address] Phone [phone] Care Team Providers Care Distillery Manager Name Role Phone Aaron Wolf MD Primary Care Provider [phone] Reason for Visit * Reason Comments eRx-Medication Refill Encounter Details Date Type Department Care Team (Late st Contact Info) Description 05/15/2024 Refill Cardiology, [facility] [address] [place] [address] GerardoLouisa garcia CRNP [address] [place] [address] Dyslipidemia, goal LDL below 160 Allergies Active Allergy Reactions Criticality Noted Date Comments Triprolidine-Pseudoephedrin e 05/22/2015 Anefrin Nasal [place] 08/12/2018 Amoxicillin 04/04/2004 Antipyrine 03/09/2006 Rash and [...] as of this encounter (statuses as of 05/16/2024) Medications Medication Sig Dispensed Refills Start Date [...] IN THE MORNING 135 Tablet 4 Active Atorvastatin Calcium 10 MG Oral [...] as of this encounter (statuses as of 05/16/2024) Active Problems Problem Noted Date Diagnosed Date Rheumatoid arthritis of [facility] sites without rheumatoid factor 09/01/2021 Encounter [...] as of this encounter (statuses as of 05/16/2024) Resolved Problems Problem Noted Date Diagnosed Date Resolved Date PURE HYPERCHOLESTEROLEM 01/13/200507/02 Overview: Per Lipid Taxonomy. 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 factor 09/01/19 22 Mitral valve prolapse 2011 documented as of this encounter (statuses as of 05/16/2024) Immunizations Name Administration Dates Next Due COVID-19 mRNA, LNP-s, No Pre serve, 2-Dose Series (Moderna) 04/28/2021,10/22/2020,09/24/2020 COVID-19, MRNA-LNP, 23-24, P F, 30 MCG/0.3 mL, 12 YRS AND ABOVE, IM ([facility]) 05/13/2023 COVID-19, mRNA, LNP-s, PF, [...] Never Smokeless Tobacco: Never Comments:passive smoke at [facility] as a child Alcohol Use Standard [...] encounter Miscellaneous Notes * Telephone Encounter - Fletcher Gallardo [facility] - 05/16/2024 11:32 AM EDTSigned Prescriptions: Disp Refills Atorvastatin Calcium 10 MG Oral Tablet (Li*90 Tab*3 Sig: TAKE 1 TABLET IN THE MORNINGAuthorizing Provider: DEVON JUAREZ User: FLETCHER GALLARDO Electronically signed by Fletcher Gallardo [facility] at 05/16/2024 11:32 AM EDT documented in this encounter Plan of Treatment Upcoming Encounters Date Type Department Care Team (Late st Contact Info) Description 06/27/2024 11:00 AM EST Office Visit Cardiology, [facility] [address] [place] [address] Devon Juarez MD [address] [place] [address] Health Maintenance Due Date Last Done Comments [...] D LEVEL ONCE IN A LIFETIME-USE SMARTSET# 64982 Completed 01/01/2022 HPV (Gardasil) Vaccine Aged Out No lo nger eligible based on patient's age to complete this topic Hepatitis B Vaccine Aged Out No longe r eligible based on patient's age to complete this topic MENINGOCOCCAL (MENACTRA/MENVEO) Aged Out No longer eligible based on patient's age to complete this topic documented as of this encounter Medical Devices Implanted Type Area Power Crane Operator Device Identifier Shelf Expiration Date Model / Serial / Lot Lens Intraoc 23.5 - [id number] - [id number] Implanted:Qty: 1 on 03/08/2018 by Pop Gutierrez MD at OR [facility] Left: Eye BAUSCH & LOMB 09/01/2022 [id number] / [id number] / [id number] Lens Intraoc 21.5 - [id number] - [id number] Implanted:Qty: 1 on 03/22/2018 by Pop Gutierrez MD at OR [facility] Right: Eye BAUSCH & LOMB 10/30/2022 [id number] / [id number] / [id number] documented as of this encounter Visit Diagnoses Diagnosis Dyslipidemia, goal LDL below 160 Other and unspecified hyperlipidemia documented in this encounter Advance Directives Documents on File Type Date Recorded Patient Precision Dancer Expl anation Advance Directives and Living Will 11/14/2003 Power of Cement Mason 11/14/2003 * Full Code (Latest Code Status on File) Date Activated Date Inactivated Comments 03/22/2018 6:30 AM 03/22/2018 1:21 PM This order r eflects the patients wishes and were consensually agreed upon. * Full Code Date Activated Date Inactivated Comments 03/08/2018 7:53 AM 03/08/2018 2:47 PM This order ref lects the patients wishes and were consensually agreed upon. Care Teams Distillery Manager Relationship Specialty Start Date End Date Aaron Wolf MD [address] [place] [address] PCP - General Critical Care Medicine 02/26/20 documented as of this encounter
--- OUTSIDE RECORDS SUMMARY | 2024-08-04 15:18 | External Medical Summary | Summary of Care ---
Author Name Unknown Organization [facility] Address [address] [place] [facility] [place] [place] [address] Phone [phone] Care Team Providers Care Bead Wrapper Name Role Phone Aaron Wolf MD Primary Care Provider [phone] Reason for Visit * Reason Comments eRx-Medication Refill Encounter Details Date Type Department Care Team (Late st Contact Info) Description 05/15/2024 Refill Rheumatology [place] [id number] [place] [address] Vale Mary MD [address] [place] [address] Senile osteoporosis* Allergies Active Allergy Reactions Criticality Noted Date Comments Triprolidine-Pseudoephedrin e 05/22/2015 Anefrin Nasal [place] 08/12/2018 Amoxicillin 04/04/2004 Antipyrine 03/09/2006 Rash and [...] as of this encounter (statuses as of 05/25/2024) Medications Medication Sig Dispensed Refills Start Date [...] as of this encounter (statuses as of 05/25/2024) Active Problems Problem Noted Date Diagnosed Date Rheumatoid arthritis of [facility] sites without rheumatoid factor 09/01/2021 Encounter for [...] as of this encounter (statuses as of 05/25/2024) Resolved Problems Problem Noted Date Diagnosed Date Resolved Date PURE HYPERCHOLESTEROLEM 01/13/200507/02 Overview: Per Lipid Taxonomy. 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 factor 09/01/19 22 Mitral valve prolapse 2011 documented as of this encounter (statuses as of 05/25/2024) Immunizations Name Administration Dates Next Due COVID-19 [...] Never Smokeless Tobacco: Never Comments:passive smoke at [facility] as a child Alcohol Use Standard Drinks/Week [...] encounter Miscellaneous Notes * Telephone Encounter - Valeria Rosado OSA - 05/25/2024 1:59 PM EDT Scheduled. * Addendum Note - Vale Mary MD - 05/19/2024 3:50 PM EDTAddended by: VALE MARY on: 05/19/2024 03:50 PM Modules accepted: Orders * Telephone Encounter - Vale Mary MD - 05/19/2024 3:49 PM EDT Kathy - arrange DEXA * Telephone Encounter - Cole Mace - 05/17/2024 8:37 PM EDT Received message from [facility] regarding patient needing an appointment. Patient was notified. Successfully contacted patient and provided [facility] message. * Telephone Encounter - Vinay Garces [facility] - 05/16/2024 10:09 AM EDTSigned Prescriptions: Disp Refills predniSONE 5 MG Oral Tablet (Deltasone) 135 Ta*0 Sig: TAKE ONE AND ONE-HALF TABLETS IN THE MORNING Authorizing Provider: VALE MARY Ordering User: VINAY GARCES * Telephone Encounter - Vinay Garces [facility] - 05/16/2024 9:47 AM EDT Please contact patient so that an appointment can be scheduled with her RHEUMATOLOGY provider. Refill authorized to hold patient over in the mean time. Patient was to [facility] in 9 months (around 04/13/24). Last Visit: 07/13/2023 (in office), Visit date not found (telemedicine) Next Visit: Visit date not found Thank you, Vinay Garces, PharmD Clinical Pharmacist [facility] ([facility]) [phone] 05/16/2024, 10:05 AM documented in this encounter Plan of Treatment Upcoming Encounters Date Type Department Care Team (Late st Contact Info) Description 05/29/2024 3:00 PM EDT Imaging Radiology, [address] [place] [address] 05/30/2024 10:00 AM EDT Office Visit Rheumatology [address] [place] [address] Vale Mary MD [address] [place] [address] [place] [address] 06/27/2024 11:00 AM EST Office Visit Cardiology, [facility] [address] [facility] [place] [address] Devon Juarez MD [address] [place] [address] Scheduled Orders Name Type Priority Associated Diagnoses [...] D LEVEL ONCE IN A LIFETIME-USE SMARTSET# 15990 Completed 01/01/2022 HPV (Gardasil) Vaccine Aged Out No lo nger eligible based on patient's age to complete this topic Hepatitis B Vaccine Aged Out No longe r eligible based on patient's age to complete this topic MENINGOCOCCAL (MENACTRA/MENVEO) Aged Out No longer eligible based on patient's age to complete this topic documented as of this encounter Medical Devices Implanted Type Area Swimmer Device Identifier Shelf Expiration Date Model / Serial / Lot Lens Intraoc 23.5 - [id number] - [id number] Implanted:Qty: 1 on 03/08/2018 by Pop Gutierrez MD at OR [facility] Left: Eye BAUSCH & LOMB 09/01/2022 [id number] / [id number] / [id number] Lens Intraoc 21.5 - [id number] - [id number] Implanted:Qty: 1 on 03/22/2018 by Pop Gutierrez MD at OR [facility] Right: Eye BAUSCH & LOMB 10/30/2022 [id number] / [id number] / [id number] documented as of this encounter Visit Diagnoses Diagnosis Senile osteoporosis- Primary documented in this encounter Advance Directives Documents on File Type Date Recorded Patient Education And Outreach Coordinator Expl anation Advance Directives and Living Will 11/14/2003 Power of Bulb Farmworker 11/14/2003 * Full Code (Latest Code Status on File) Date Activated Date Inactivated Comments 03/22/2018 6:30 AM 03/22/2018 1:21 PM This order r eflects the patients wishes and were consensually agreed upon. * Full Code Date Activated Date Inactivated Comments 03/08/2018 7:53 AM 03/08/2018 2:47 PM This order ref lects the patients wishes and were consensually agreed upon. Care Teams Bead Wrapper Relationship Specialty Start Date End Date Aaron Wolf MD [address] [place] [address] PCP - General Critical Care Medicine 02/26/20 documented as of this encounter
--- OUTSIDE RECORDS SUMMARY | 2024-08-04 15:18 | External Medical Summary | Summary of Care ---
Author Name Unknown Organization [facility] Address [address] [place] [address] Phone [phone] Care Team Providers Care Hand Umbrella Tipper Name Role Phone Aaron Wolf MD Primary Care Provider [phone] Reason for Visit * Reason Comments eRx-Medication Refill Encounter Details Date Type Department Care Team (Late st Contact Info) Description 05/15/2024 Refill Rheumatology [place] [id number] [employer] [address] Bethel Mary MD [facility] [place] [address] Allergies Active Allergy Reactions Criticality Noted Date Comments Triprolidine-Pseudoephedrin e 05/22/2015 Anefrin Nasal [place] 08/12/2018 Amoxicillin 04/04/2004 Antipyrine 03/09/2006 Rash and [...] as of this encounter (statuses as of 05/17/2024) Medications Medication Sig Dispensed Refills Start Date [...] as of this encounter (statuses as of 05/17/2024) Active Problems Problem Noted Date Diagnosed Date Rheumatoid arthritis of [facility] sites without rheumatoid factor 09/01/2021 Encounter [...] as of this encounter (statuses as of 05/17/2024) Resolved Problems Problem Noted Date Diagnosed Date Resolved Date PURE HYPERCHOLESTEROLEM 01/13/200507/02 Overview: Per Lipid Taxonomy. 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 factor 09/01/19 22 Mitral valve prolapse 2011 documented as of this encounter (statuses as of 05/17/2024) Immunizations Name Administration Dates Next Due COVID-19 mRNA, LNP-s, No Pre serve, 2-Dose Series (Moderna) 04/28/2021,10/22/2020,09/24/2020 COVID-19, MRNA-LNP, 23-24, P F, 30 MCG/0.3 mL, 12 YRS AND ABOVE, IM ([facility]) 05/13/2023 COVID-19, mRNA, LNP-s, PF, B ooster, [...] Never Smokeless Tobacco: Never Comments:passive smoke at [facility] as a child Alcohol Use Standard Drinks/Week [...] encounter Miscellaneous Notes * Telephone Encounter - Cole Mace - 05/17/2024 8:37 PM EDT Received message from [facility] regarding patient needing an appointment. Patient was notified. Successfully contacted patient and provided [facility] message. * Telephone Encounter - Vinay Garces [facility] - 05/16/2024 10:09 AM EDTSigned Prescriptions: Disp Refills predniSONE 5 MG Oral Tablet (Deltasone) 135 Ta*0 Sig: TAKE ONE AND ONE-HALF TABLETS IN THE MORNING Authorizing Provider: BETHEL MARY Ordering User: VINAY GARCES * Telephone Encounter - Vinay Garces RPh - 05/16/2024 9:47 AM EDT Please contact [...] Clinical Pharmacist [facility] ([facility]) [phone] 05/16/2024, 10:05 AM documented in this encounter Plan of Treatment Upcoming Encounters Date Type Department Care Team (Late st Contact Info) Description 06/27/2024 11:00 AM EST Office Visit Cardiology, [facility] [address] [place] [address] Devon Juarez MD [address] [place] [address] Health Maintenance Due Date Last Done Comments Depression Screening 1952 Zoster Vaccines (1 of 2) 1960 DXA Scan 05/07/2011 05/07/2009, 1012/2008, 02/11/2006, Additional history exists *BISPHONATE OR OTHER [...] D LEVEL ONCE IN A LIFETIME-USE SMARTSET# 08248 Completed 01/01/2022 HPV (Gardasil) Vaccine Aged Out No lo nger eligible based on patient's age to complete this topic Hepatitis B Vaccine Aged Out No longe r eligible based on patient's age to complete this topic MENINGOCOCCAL (MENACTRA/MENVEO) Aged Out No longer eligible based on patient's age to complete this topic documented as of this encounter Medical Devices Implanted Type Area Chronometer Adjuster Device Identifier Shelf Expiration Date Model / Serial / Lot Lens Intraoc 23.5 - [id number] - [id number] Implanted:Qty: 1 on 03/08/2018 by Pop Gtuierrez MD at OR [facility] Left: Eye BAUSCH & LOMB 09/01/2022 [id number] / [id number] / [id number] Lens Intraoc 21.5 - [id number] - [id number] Implanted:Qty: 1 on 03/22/2018 by Pop Gutierrez MD at OR [facility] Right: Eye BAUSCH & LOMB 10/30/2022 [id number] / [id number] / [id number] documented as of this encounter Advance Directives Documents on File Type Date Recorded Patient Watershed Coordinator Expl anation Advance Directives and Living Will 11/14/2003 Power of Leasing Specialist 11/14/2003 * Full Code (Latest Code Status on File) Date Activated Date Inactivated Comments 03/22/2018 6:30 AM 03/22/2018 1:21 PM This order r eflects the patients wishes and were consensually agreed upon. * Full Code Date Activated Date Inactivated Comments 03/08/2018 7:53 AM 03/08/2018 2:47 PM This order ref lects the patients wishes and were consensually agreed upon. Care Teams Hand Umbrella Tipper Relationship Specialty Start Date End Date Aaron Wolf MD [address] [place] [address] PCP - General Critical Care Medicine 02/26/20 documented as of this encounter
[2024-08-04 19:24] LABS: Appearance Urine Clear (Clear); Bacteria Urine Automated None Seen (None Seen); Bilirubin Urine Negative (Negative); Blood Urine 3+ (Negative); Cast Urine Automated 0-2 /lpf (0-2); Color Urine Yellow; Epithelial Cell Urine Auto 0-2 /hpf (0-2); Glucose Urine UA Negative (Negative); Ketones Urine Trace (Negative); Leukocyte Esterase Urine Negative (Negative); Nitrite Urine Negative (Negative); Protein Urine 2+ (Negative); RBC Urine Automated >20 /hpf (0-2); Specific Gravity Urine 1.013 (1.000-1.030); Urobilinogen Urine Negative (Negative); WBC Urine Automated 0-5 /hpf (0-5)
[2024-08-04] MEDS: diphenhydrAMINE 50 MG/ML VIAL IV PRN (21:39)
[2024-08-04] MEDS: MELATONIN 3 MG TAB PO SCH (22:09)
[2024-08-04] MEDS: ATORVASTATIN 10 MG TAB PO SCH (22:10)
[2024-08-04] MEDS: POLYETHYLENE (MIRALAX) 17 GM PACK PO SCH (22:10)
[2024-08-04] MEDS: ACETAMINOPHEN 325 MG TAB PO PRN (22:10)
[2024-08-04] MEDS: APIXABAN 2.5 MG TAB PO SCH (22:10)
[2024-08-04] MEDS: LORazepam 0.5 MG TAB PO PRN (22:10)
[2024-08-04] MEDS: guaiFENesin 600 MG TABCR PO SCH (22:10)
[2024-08-05] MEDS: CEFEPIME 2000MG 2,000 MG/20 ML SYR IV SCH (00:01)
[2024-08-05 07:32] LABS: BUN Creatinine Ratio 19.3 (10-20); Calcium 8.6 mg/dl (8.6-10.3); Creatinine Clr Calc Pharmacy 37.2 ml/min; Magnesium 1.7 mg/dl (1.7-2.4); Potassium 3.5 mmol/L (3.5-5.1)
[2024-08-05 07:41] LABS: Basophils # (auto) 0.01 K/uL (0.00-0.20); Basophils % (auto) 0.1 %; Eosinophils # (auto) 0.08 K/uL (0.00-0.50); Eosinophils % (auto) 0.9 %; Hematocrit (blood only) 34.7 % (37.0-47.0); Hemoglobin 10.7 g/dl (12.0-16.0); Immature Granulocytes # (auto) 0.08 K/uL (0.01-0.20); Immature Granulocytes % (auto) 0.9 %; Lymphocytes # (auto) 0.85 K/uL (1.20-3.40); Lymphocytes % (auto) 9.9 %; Mean Corpuscular Hemoglobin 25.9 pg (25.0-34.0); Mean Corpuscular Hgb Conc 30.8 g/dL (32.0-36.0); Monocytes % (auto) 8.2 %; Neutrophils # (auto) 6.84 K/uL (1.40-6.50); Platelet Estimate Decreased (Normal); RDW Coefficient of Variation 20.2 % (11.5-14.5); RDW Standard Deviation 60.7 fL (36.4-46.3); Red Blood Count 4.13 M/uL (4.20-5.40); Tear Drop Cells 1+; White Blood Count 8.56 K/ul (4.8-10.8)
[2024-08-05] MEDS: FOLIC ACID 400 MCG TAB PO SCH (08:38)
[2024-08-05] MEDS: FLUTICASONE PROPIONATE NA SPR 16 GM BTL SCH (08:38)
[2024-08-05] MEDS: METOPROLOL SUCC 25MG EXT REL TAB PO SCH (08:39)
[2024-08-05] MEDS: CETIRIZINE HCL 10 MG TABLET PO SCH (08:39)
[2024-08-05] MEDS: PANTOprazole 40 MG TAB PO SCH (08:39)
[2024-08-05] MEDS: AMIODARONE 200 MG TAB PO SCH (08:39)
[2024-08-05] MEDS: ASPIRIN 81 MG ECTAB PO SCH (09:37)
[2024-08-05] MEDS: PROMETHAZINE HCL 25 MG TAB PO PRN (12:18)
--- NOTE | 2024-08-05 15:34 | Hospitalist Progress Note ---
Date of Service August 05, 2024 Assessment & Plan (1) Human metapneumovirus (hMPV) pneumonia: Plan: 83-year-old female with PMH of atrial fibrillation (on Eliquis), CHF, LBBB, CKD stage III, HTN, GERD, anxiety, rheumatoid arthritis, HOCM, diverticulitis, and IBS. She presented via EMS on 08/04 for SOB, productive cough, congestion, sore throat, intermittent fever, and weakness x 1 week. She does not wear supplemental oxygen at baseline wears CPAP at night, though she initially required supplemental O2 to maintain adequate O2 saturation, she is now off supplemental oxygen. -CXR on arrival revealed bilateral lower lung field opacities -hMPV (+) on arrival -Sputum culture ordered, not yet collected -Continue Cefepime 2000 mg IV q8h -- consider downgrading to Azithromycin -Continue Guaifenesin 600 mg p.o. q12h -Contact isolation precautions -No longer requiring supplemental O2 - use as needed to maintain O2 sat >90% (2) Elevated troponin: Plan: Elevated troponin on arrival, peaked at 48.5 then downgraded - suspect secondary to demand ischemia Patient reported some rib pain secondary to coughing but denied chest pain/pressure Continuous telemetry monitoring (3) Thrombocytopenia: Plan: Thrombocytopenia appears to be chronic -Aspirin now on HOLD given platelet count <90 -Continue Eliquis for now hold Eliquis if platelet count drops <50 -AM CBC (4) Rheumatoid arthritis: Plan: Continue folic acid In the setting of acute infection, will plan to hold methotrexate on Sunday 08/06 Plan Held aspirin Ordered sputum culture Reviewed prior CBCs Weaned off O2 Chronic stable problems: Hypertension: Continue home antihypertensives; blood pressures have been stable with most recent rate of 128/64 A-fib: Continue metoprolol, Eliquis; currently in NSR VTE PPx: Eliquis CODE STATUS: DNR/DNI Dispo: Continue inpatient stay while awaiting PT/OT evaluations, and continue antibiotic and supportive care for pneumonia Admission and Anticipated Discharge Date Admission Date: August 04, 2024 Subjective Patient seen and evaluated at bedside. She reports "I feel terrible. Everything is bad." She states she feels very weak, and notes she cannot feel herself up in bed. She denies dyspnea or shortness of breath, but her cough per sist. She notes this is intermittently productive. She also reports intermittent nausea. She has not been evaluated by PT/OT yet. No additional complaints or concerns at this time. Physical Exam Physical Exam: General: No acute distress, nondiaphoretic, frail-appearing elderly female. Skin: The skin was warm, dry without rashes, erythema, edema. Cardiac: Regular rate and rhythm. 3/6 systolic murmur noted. Pulm: Diminished breath sounds but otherwise clear to auscultation bilaterally without wheezes, rales or rhonchi. No respiratory distress. 96% on 2 L. Abdominal: Soft, nontender, nondistended. Bowel sounds present. Neuro: A&O x3. No focal neurological deficits. Results & Data Results & Data Vital Signs (Past 12 Hours) Vital Signs Temp Pulse Pulse Resp BP Pulse Ox O2 Del Method 08/05/24 13:53 75 08/05/24 11:31 98.4 F 78 20 128/67 94 Nasal Cannula 08/05/24 08:24 98.8 F 72 20 132/64 98 Nasal Cannula 08/05/24 08:21 Nasal Cannula 08/05/24 07:17 78 O2 Flow Rate 08/05/24 13:53 08/05/24 11:31 2 08/05/24 08:24 2 08/05/24 08:21 2 08/05/24 07:17 Laboratory Results Reviewed CBC Reviewed BMP and chemistries Reviewed urine culture PG Care Time/CCT Total # of Minutes Spent Total Time Spent with Patient: Total time spent is greater than 50% in coordination of care (as documented) at patient's floor/unit and/or counseling patient: Coding Level of Care Code 29833 SUB INP/OBS CARE 3/50MIN Diagnoses Human metapneumovirus (hMPV) pneumonia J12.3 Elevated troponin R79.89 Thrombocytopenia D69.6 Rheumatoid arthritis M06.9
[2024-08-05] MEDS: traMADol HCL 50 MG TABLET PO PRN (20:16)
[2024-08-06 06:05] LABS: Calcium 8.5 mg/dl (8.6-10.3); Creatinine Clr Calc Pharmacy 41.4 ml/min
[2024-08-06 06:56] LABS: Hematocrit (blood only) 34.3 % (37.0-47.0); Hemoglobin 10.8 g/dl (12.0-16.0); Mean Corpuscular Hemoglobin 26.2 pg (25.0-34.0); Mean Corpuscular Hgb Conc 31.5 g/dL (32.0-36.0); Mean Corpuscular Volume 83.1 fL (80.0-100.0); RDW Coefficient of Variation 20.2 % (11.5-14.5); RDW Standard Deviation 59.2 fL (36.4-46.3); Red Blood Count 4.13 M/uL (4.20-5.40); White Blood Count 9.54 K/ul (4.8-10.8)
[2024-08-06 07:00] LABS: Anisocytosis Present; Basophils # (auto) 0.02 K/uL (0.00-0.20); Basophils % (auto) 0.2 %; Immature Granulocytes # (auto) 0.11 K/uL (0.01-0.20); Immature Granulocytes % (auto) 1.2 %; Lymphocytes # (auto) 2.33 K/uL (1.20-3.40); Lymphocytes % (auto) 24.4 %; Monocytes # (auto) 0.85 K/uL (0.11-0.59); Monocytes % (auto) 8.9 %; Neutrophils # (auto) 6.13 K/uL (1.40-6.50); Neutrophils % (auto) 64.3 %; Ovalocytes 1+
--- NOTE | 2024-08-06 08:20 | Hospitalist Progress Note ---
Date of Service August 06, 2024 Assessment & Plan (1) Human metapneumovirus (hMPV) pneumonia: Plan: 83-year-old female with PMH of atrial fibrillation (on Eliquis), CHF, LBBB, CKD stage III, HTN, GERD, anxiety, rheumatoid arthritis, HOCM, diverticulitis, and IBS. She presented via EMS on 08/04 for SOB, productive cough, congestion, sore throat, intermittent fever, and weakness x 1 week. She does not wear supplemental oxygen at baseline wears CPAP at night. She initially required supplemental O2 to maintain adequate O2 saturation, had been weaned off O2 and stable, placed back on supplemental O2 with new complaints of chest pain and shortness of breath in setting of A flutter (see #2). -CXR on arrival revealed bilateral lower lung field opacities -hMPV (+) on arrival -Sputum culture ordered, not yet collected -Continue Cefepime 2000 mg IV q8h -- consider downgrading to Azithromycin -Continue Guaifenesin 600 mg p.o. q12h -Contact isolation precautions -No longer requiring supplemental O2 - use as needed to maintain O2 sat >90% (2) Chest pain: Plan: Acute change in status morning of 08/06/2024 when patient became pale, diaphoretic, short of breath, hypotensive, and had midsternal chest pain radiating to her right arm. Lethargic lying in bed, but wakes to voice and oriented x 3 at that time. She had received tramadol 50 mg and lorazepam 0.5 mg about 30 minutes prior to symptom onset. -EKG revealed A flutter with chronic LBBB and ST abnormalities similar to prior EKGs -Trop elevated at 47.5, trend to peak -Cardiology consulted -250 cc bolus IV fluid x 1 with improvement in BP -Flumazenil IV x 1 to reverse benzo due to somnolence -Continue amiodarone 20 mg daily, metoprolol succinate 25 mg daily, Eliquis 2.5 mg twice daily, aspirin 81 mg daily -Metoprolol tartrate 5 mg IV as needed with parameters; use caution with AV anton blockers due to underlying HOCM -Lorazepam and tramadol have been discontinued -Anticipate atrial arrhythmias will improve as her viral illness improves (3) Electrolyte abnormality: Plan: Potassium low at 3.0 - ordered 40 mEq PO and 10 mEq IV x 2 Repleted magnesium to optimize electrolytes Augmented appropriately with K=4.0, mag=2.3 AM BMP, mag (4) Thrombocytopenia: Plan: Thrombocytopenia appears to be chronic -Continue Aspirin for now - hold Aspirin if platelet count drops <90 -Continue Eliquis for now hold Eliquis if platelet count drops <50 -AM CBC (5) Rheumatoid arthritis: Plan: Continue folic acid In the setting of acute infection, will plan to hold methotrexate on Sunday 08/06 Plan Resumed aspirin Repleted potassium and magnesium Consulted cardiology and discussed case with Dr. Griffin Ordered flumazenil, IV bolus Chronic stable problems: Hypertension: Continue home antihypertensives; hypotension resolved after IV bolus with most recent BP 119/77 A-fib: Continue metoprolol, Eliquis; currently in NSR VTE PPx: Eliquis CODE STATUS: DNR/DNI Dispo: Continue inpatient stay while awaiting PT/OT evaluations, continue antibiotic and supportive care for pneumonia, continue telemetry given chest pain and new A flutter Admission and Anticipated Discharge Date Admission Date: August 04, 2024 Subjective Notified by RN around 0930 that patient had difficulty walking back from bathroom, became very weak, short of breath, and reported midsternal chest pain radiating to her right arm. Review of telemetry shows patient converted to a flutter in the 100s around 0900 this morning. Upon arrival at bedside, patient was pale, diaphoretic, and lethargic. She did respond appropriately to voice and able to follow commands. She reports "my chest hurts and I feel hot." Hypotensive at 60s/40s x 2. Consulted [facility] cardiology, Dr. Griffin, who also evaluated patient at bedside at this time. Will give patient 250 cc bolus of IV fluid at this time. She did receive 0.5 mg lorazepam and 50 mg tramadol around 0900 this morning; flumazenil IV to reverse benzo given lethargy. Attempted to call patient's with update, unfortunately he did not answer the phone and a voicemail could not be left. Reassessed patient in afternoon. She was improved at this time, awake and oriented x 3, and reports feeling better. Physical Exam Physical Exam: General: Moderate distress diaphoretic, pale, frail-appearing elderly female. Cardiac: A flutter ranging 70-100s. 3/6 systolic murmur noted. Pulm: Diminished breath sounds but otherwise clear to auscultation bilaterally without wheezes, rales or rhonchi. No respiratory distress. 97% on 1 L NC. Abdominal: Soft, nontender, nondistended. Bowel sounds present. Neuro: A&O x3. No focal neurological deficits. Results & Data Results & Data Vital Signs (Past 12 Hours) Vital Signs Temp Pulse Pulse Resp BP Pulse Ox O2 Del Method 08/06/24 07:15 97.9 F 70 16 119/69 98 Nasal Cannula 08/06/24 06:49 66 08/06/24 03:13 98.2 F 79 16 110/63 96 Nasal Cannula 08/05/24 22:14 98.6 F 80 16 126/70 96 Nasal Cannula 08/05/24 21:48 93 Nasal Cannula 08/05/24 21:47 87 L Room Air 08/05/24 21:46 82 08/05/24 20:42 Room Air O2 Flow Rate 08/06/24 07:15 2 08/06/24 06:49 08/06/24 03:13 2 08/05/24 22:14 2 08/05/24 21:48 2 08/05/24 21:47 08/05/24 21:46 08/05/24 20:42 Laboratory Results Reviewed CBC Reviewed BMP PG Care Time/CCT Total # of Minutes Spent Total Time Spent with Patient: Total time spent is greater than 50% in coordination of care (as documented) at patient's floor/unit and/or counseling patient: Coding Level of Care Code 72588 SUB INP/OBS CARE 3/50MIN Diagnoses Human metapneumovirus (hMPV) pneumonia J12.3 Chest pain R07.9 Electrolyte abnormality E87.8 Thrombocytopenia D69.6 Rheumatoid arthritis M06.9
[2024-08-06] MEDS: POTASSIUM CHLORIDE CRTAB 20 MEQ TABCR PO STA (09:05)
[2024-08-06] MEDS ORDERED: METOPROLOL TARTRATE 1 MG/ML VIAL IV PRN (09:26)
[2024-08-06] MEDS: MAGNESIUM SULFATE / D5W 1 GM/100 ML BAG IV ONE (09:53)
[2024-08-06] MEDS: POTASSIUM CHLORIDE / WTR 10 MEQ/100 ML PLCT IV SCH (09:53)
[2024-08-06] MEDS: SODIUM CHLORIDE 0.9% 250 ML IV ONE (10:50)
[2024-08-06] MEDS: FLUMAZENIL 0.1 MG/1 ML 10 ML VIAL IV STA (10:52)
--- NOTE | 2024-08-06 14:37 | Cardiology Consultation ---
Date of Consultation August 06, 2024 Assessment & Plan (1) Human metapneumovirus (hMPV) pneumonia: (2) Atrial flutter with rapid ventricular response: Patient with known chronic left bundle branch block and history of paroxysmal atrial fibrillation. At baseline she is anticoagulated with Eliquis and is on amiodarone for rhythm control. Although her platelet count had been down to 78K on 08/26 it is improved to 102k today. Will continue prior to hospital treatment with Eliquis 2.5 mg twice daily. Continue outpatient amiodarone 200 mg daily as well as metoprolol succinate 25 mg daily with caution not to be too aggressive with AV anton blockers due to underlying conduction system disease. With regards to her somnolence and hypotension, she recently received a dose of tramadol and lorazepam.Recommended a bolus of normal saline, 250 mL and a dose of flumazenil. Lorazepam and tramadol doses discontinued by the primary team. Anticipate atrial arrhythmias will improve as her viral illness improves. Despite the left pleural effusion, on exam she appeared to be somewhat volume depleted. A cautious, small fluid bolus was therefore administered. Case discussed with Dr Humphrey and Phyllis Baeza PA-C for the purpose of coordination of care. Dr Helena ramos on 08/07 History of Present Illness Attending Physician: Hernán Humphrey MD History of Present Illness Vane Carlton is an 83 year old female seen in cardiology consultation per the request of Dr Humphrey for the evaluation of atrial flutter and hypotension. Patient presented via the emergency department on 08/04/24 For chief complaint of shortness of breath, productive cough, congestion, sore throat and fever of 1 week duration. She resides at the [facility] and reportedly had a fever of up to 102 F as per the admission history and physical. She had subsequently been found to have human metapneumovirus and has been placed on droplet precautions. Telemetry had revealed sinus rhythm in the 70s with chronic left bundle branch block earlier this morning until at 9:03 AM when she was noted to revert to an atrial flutter with ventricular rate in the 90s-100 bpm range. An EKG revealed atrial flutter with left bundle branch block and lateral repolarization abnormalities more prominent than her usual baseline. At the time my assessment, the patient was hypotensive with systolic blood pressure in the 70s and she was somnolent. In the preceding hour she had received tramadol as well as a dose of oral Ativan. Past Medical History: 1. Hypertrophic cardiomyopathy with outflow track obstruction and LEYDA of mitral valve with mitral regurgitation 2. Left bundle-branch block 3. Paroxysmal atrial fibrillation, diagnosed 12/07/2023--maintaining sinus rhythm with amiodarone, started 12/07/2023 a. [id number] score of 3 (age 3, female) , on dose reduced Eliquis (age/weight) 4. Dyslipidemia 5. Severe rheumatoid arthritis, follows with rheumatology--on methotrexate and prednisone 6. Osteoporosis 7. Pectus excavatum Allergies Allergy/AdvReac Type Severity Reaction Status Date / Time bee venom protein (honey bee) Allergy Intermediate BEE/WASP-NAUSEA Verified 12/06/23 14:19 AND DIZZINESS Penicillins Allergy Intermediate RASH (PER Verified 12/06/23 14:19 PT, WAS A LONG TIME AGO)AMOXICILLIN AND PCN amoxicillin [From Augmentin] Allergy Mild Unknown Verified 12/06/23 14:19 clavulanic acid Allergy Mild Unknown Verified 12/06/23 14:19 [From Augmentin] esomeprazole Allergy Mild NAUSEA Verified 12/06/23 14:19 VOMITING magnesium citrate Allergy Mild projectile Verified 12/06/23 14:19 vomitting antipyrine Allergy Unknown RASH AND Verified 12/06/23 14:19 BLISTERS benzocaine Allergy Unknown dental - Verified 12/06/23 14:19 tingling on tongue hydroxychloroquine Allergy Unknown UNKNOWN Verified 12/06/23 14:19 misoprostol Allergy Unknown UNKNOWN Verified 12/06/23 14:19 phenylephrine Allergy Unknown UNKNOWN Verified 12/06/23 14:19 pseudoephedrine Allergy Unknown UNKNOWN Verified 12/06/23 14:19 Serotonin 5HT-3 Antagonists Allergy Unknown UNKNOWN Verified 12/06/23 14:19 Sulfa (Sulfonamide Allergy Unknown UNKNOWN Verified 12/06/23 14:19 Antibiotics) citalopram AdvReac Mild GI UPSET Verified 12/06/23 14:19 clarithromycin AdvReac Mild GI UPSET Verified 12/06/23 14:19 denosumab [From Prolia] AdvReac Unknown Unknown Unverified 12/06/23 14:19 Home Medications Medication Instructions Recorded Confirmed Type acetaminophen 500 mg tablet 1,000 mg PO Q8H PRN Pain 08/17/18 08/04/24 History (Tylenol Extra Strength) aspirin 81 mg tablet,delayed 81 mg PO QAM 08/17/18 08/04/24 History release atorvastatin 10 mg tablet 10 mg PO HS 08/17/18 08/04/24 History calcium 600 mg (as 2 tab PO QAM 08/17/18 08/04/24 History carbonate)-vitamin D3 5 mcg (200 unit) capsule (Calcium 600 + D(3)) cholecalciferol (vitamin D3) 25 1,000 unit PO QAM 08/17/18 08/04/24 History mcg (1,000 unit) capsule (Vitamin D3) fluticasone propionate 50 2 spray intranasal QA 08/17/18 08/04/24 History mcg/actuation nasal spray,suspension lorazepam 0.5 mg tablet 0.5 mg PO TID PRN Anxiety 08/17/18 08/04/24 History pantoprazole 40 mg tablet,delayed 40 mg PO QA 08/17/18 08/04/24 History release multivitamin 1 tab PO DAILY 08/05/22 08/04/24 History calcium carbonate 500 mg PO DAILY 12/06/23 08/04/24 History cetirizine 10 mg tablet 10 mg PO DAILY 12/06/23 08/04/24 History melatonin 3 mg capsule 9 mg PO HS 12/06/23 08/04/24 History ondansetron 4 mg disintegrating 4 mg PO Q8H PRN Nausea And Vomiting 12/06/23 08/04/24 History tablet tramadol 50 mg tablet 50 mg PO Q6H PRN Pain 12/06/23 08/04/24 History methotrexate sodium 2.5 mg tablet 22.5 mg (9 x 2.5 mg) PO Lopez@0900 #0 12/09/23 08/04/24 Rx tabs polyethylene glycol 3350 17 gram 17 g PO BID #30 ea 12/09/23 08/04/24 Rx oral powder packet (Miralax) amiodarone 200 mg tablet 200 mg PO DAILY 04/23/24 08/04/24 History apixaban 2.5 mg tablet (Eliquis) 2.5 mg PO BID 04/23/24 08/04/24 History metoprolol succinate 25 mg 25 mg PO DAILY 04/23/24 08/04/24 History tablet,extended release 24 hr folic acid 0.8 mg capsule 1.2 mg PO [id number] 08/04/24 08/04/24 History guaifenesin 600 mg tablet, 600 mg PO Q12H PRN Congestion 08/04/24 08/04/24 History extended release 12 hr ibuprofen 200 mg tablet 200 mg PO Q6H PRN Pain 08/04/24 08/04/24 History Patient History Medical History Hypertrophic cardiomyopathy with LVOT and LEYDA PONV (postoperative nausea and vomiting) Lactose intolerance Osteoporosis Kidney stones passed on own Hiatal hernia HOCM (hypertrophic obstructive cardiomyopathy) Surgical History Hx of mastoidectomy History of lumbar spinal fusion History of tonsillectomy and adenoidectomy History of endoscopic sinus surgery History of cataract surgery right and left History of appendectomy Social History Smoking Status: Never smoker Second Hand Exposure: No; Do You Dip or Chew Tobacco: No; Hx Alcohol Use: No Hx Substance Use: No Preferred Language: Occitan Communication Ability: Effective Visual Impairment: No Limitations Aircraft Fuselage Framer Required: No Beliefs That Will Affect Care: None Current Living Situation: Personal Care Facility Current Living Situation Comment: [facility] with Other Information That Helps Us Care for You: No Feels Safe at Home: Yes Safety Concerns: Feels Safe At This Time Assistive Devices: Walker Assistive Devices Comment: pt is on oxygen, reports this is not chronic for her Review of Systems Review of Systems: All systems reviewed & are unremarkable except as noted in HPI & below Physical Exam Physical Exam: General: Somnolent, thin in appearance Eyes: conjunctiva are pink and non-injected, sclera clear Neck: normal jugular venous pulse, no hepatojugular reflux Chest: normal shape and normal respiratory effort Lungs: clear to auscultation and percussion Cardiac Exam: Irregular rhythm, mildly tachycardic, no murmur detected Abdomen: abdomen soft, non-tender, no abnormal masses and no hepatosplenomegaly Musculoskeletal: no gait disturbance, no weakness Extremities: no edema and no cyanosis Neuro:Somnolent as noted Results & Data Vital Signs (Past 12 Hours) Vital Signs Temp Pulse Pulse Resp BP Pulse Ox O2 Del Method 08/06/24 13:52 36.4 C L 80 119/77 97 Nasal Cannula 08/06/24 12:24 94 Nasal Cannula 08/06/24 12:08 36.1 C L 94 H 103/64 93 Room Air 08/06/24 10:45 111/72 97 Nasal Cannula 08/06/24 10:44 103/64 97 Nasal Cannula 08/06/24 10:30 62/41 L 93 Nasal Cannula 08/06/24 10:15 93 Nasal Cannula 08/06/24 09:11 95 Room Air 08/06/24 09:07 Room Air 08/06/24 07:15 36.6 C 70 16 119/69 98 Nasal Cannula 08/06/24 06:49 66 08/06/24 03:13 36.8 C 79 16 110/63 96 Nasal Cannula O2 Flow Rate 08/06/24 13:52 1 08/06/24 12:24 1 08/06/24 12:08 08/06/24 10:45 1 08/06/24 10:44 1 08/06/24 10:30 1 08/06/24 10:15 1 08/06/24 09:11 08/06/24 09:07 08/06/24 07:15 2 08/06/24 06:49 08/06/24 03:13 2 Laboratory Results Cardiac Enzymes 08/06/24 Range/Units 10:15 Troponin I High Sens 47.5 H D (0-14) pg/ml CBC 08/06/24 Range/Units 05:33 WBC 9.54 (4.8-10.8) K/ul RBC 4.13 L (4.20-5.40) M/uL Hgb 10.8 L (12.0-16.0) g/dl Hct 34.3 L (37.0-47.0) % Plt Count (130-400) K/uL Neut # (Auto) 6.13 (1.40-6.50) K/uL Lymph # (Auto) 2.33 (1.20-3.40) K/uL Piatt # (Auto) 0.85 H (0.11-0.59) K/uL Eos # (Auto) 0.10 (0.00-0.50) K/uL Baso # (Auto) 0.02 (0.00-0.20) K/uL Comprehensive Metabolic Panel 08/06/24 Range/Units 05:33 Sodium 132 L (136-145) mmol/L Potassium 3.0 L (3.5-5.1) mmol/L Chloride 98 (98-107) mmol/L Carbon Dioxide 25 (21-32) mmol/L BUN 15 (6-23) mg/dl Creatinine 0.79 (0.6-1.2) mg/dl Glucose 79 (70-99(Fasting)) mg/dl Calcium 8.5 L (8.6-10.3) mg/dl Intake and Output 08/05/24 08/06/24 08/06/24 22:59 06:59 14:59 Intake Total 370 / 660 50 / 660 350 / 350 Output Total 2 / 2 Balance 370 / 660 50 / 660 348 / 348 Intake: IV 300 / 300 Magnesium Sulfate / D5w 1 gm In 100 / 100 100 ml @ 50 mls/hr IV ONE ONE Rx#:[id number] Potassium Chloride / Wtr 10 meq 200 / 200 In 100 ml @ 100 mls/hr IV Q1H [facility] Rx#:[id number] Oral 370 / 660 50 / 660 50 / 50 Output: # Bowel Movements 2 / 2 Other: Other Intake Source 75% of breakfast, 0% of lunch. # Unmeasured Voids 1 2 # Urine Diapers 1 Weight 47.4 kg Diagnostic Findings Summary of transthoracic echocardiogram performed as an outpatient 05/28/2022 The examination is adequate to evaluate the referral indication. The qualitative LV ejection fraction is 65-69% (normal). The left cavity size is small. There is focal septal thickening which narrows the left ventricular outflow tract. The LV wall thickness is severely increased (concentric). The resting peak instantaneous left ventricular outflow tract gradient is 25-30 mm Hg. The left ventricular diastolic function is mildly abnormal (grade I). Moderate mitral regurgitation is present. There is severe mitral annular calcification. Summary of transthoracic echocardiogram performed at [facility] 12/07/23: LVEF 65 to 70%, moderate aortic valve sclerosis without stenosis Mild to moderate mitral stenosis Trace mitral regurgitation Moderate left ventricular outflow tract obstruction noted at rest Summary of radiology report of chest x-ray performed 08/04/2024: Bilateral lower lung airspace opacities suggestive of atelectasis, pneumonia and/or aspiration. Small to moderate left pleural effusion by my personal interpretation EKG performed 08/06/2024 at 10:07 AM reveals atrial flutter at 99 bpm with left bundle branch block and lateral ST segment depression. Although the ST segment depression is slightly more prominent compared to the previous tracing dated 08/04/2024, it is relatively similar to previous tracings dating back to December 2023 at this institution as well as an outpatient tracing performed within the [facility] system dated 03/27/2024
[2024-08-06 16:19] LABS: Magnesium 2.3 mg/dl (1.7-2.4); Troponin I High Sensitivity 38.6 pg/ml (0-14)
[2024-08-07 08:26] LABS: Hematocrit (blood only) 33.9 % (37.0-47.0); Hemoglobin 10.5 g/dl (12.0-16.0); Mean Corpuscular Hemoglobin 25.9 pg (25.0-34.0); Mean Corpuscular Volume 83.5 fL (80.0-100.0); RDW Standard Deviation 58.7 fL (36.4-46.3); Red Blood Count 4.06 M/uL (4.20-5.40); White Blood Count 11.59 K/ul (4.8-10.8)
[2024-08-07 08:43] LABS: BUN Creatinine Ratio 23.2 (10-20); Calcium 8.6 mg/dl (8.6-10.3); Creatinine Clr Calc Pharmacy 38.4 ml/min; Potassium 3.7 mmol/L (3.5-5.1)
[2024-08-07 09:24] LABS: ALC (manual) 3.71 K/uL (1.2-3.4); ANC (manual) 7.19 K/uL (1.4-6.5); Anisocytosis Present; Eosinophils # (manual) 0.23 K/uL (0-0.50); Eosinophils % (manual) 2 %; Lymphocytes # (manual) 2.43 K/uL (1.2-3.4); Lymphocytes % (manual) 21 %; Monocytes # (manual) 0.46 K/uL (0.11-0.59); Monocytes % (manual) 4 %; Neutrophils # (manual) 7.19 K/uL (1.40-6.50); Neutrophils % (manual) 62 %; Ovalocytes 1+; Plasma Cells # (manual) 1.27 K/uL (0-0); Plasma Cells % (manual) 11 %
--- NOTE | 2024-08-07 11:22 | Cardiology Progress Note ---
Date of Service August 07, 2024 Assessment & Plan (1) Human metapneumovirus (hMPV) pneumonia: (2) Atrial flutter with rapid ventricular response: Plan 08/06/[address] Griffin Patient with known chronic left bundle branch block and history of paroxysmal atrial fibrillation. At baseline she is anticoagulated with Eliquis and is on amiodarone for rhythm control. Although her platelet count had been down to 78K on 08/26 it is improved to 102k today. Will continue prior to hospital treatment with Eliquis 2.5 mg twice daily. Continue outpatient amiodarone 200 mg daily as well as metoprolol succinate 25 mg daily with caution not to be too aggressive with AV anton blockers due to underlying conduction system disease. With regards to her somnolence and hypotension, she recently received a dose of tramadol and lorazepam.Recommended a bolus of normal saline, 250 mL and a dose of flumazenil. Lorazepam and tramadol doses discontinued by the primary team. Anticipate atrial arrhythmias will improve as her viral illness improves. Despite the left pleural effusion, on exam she appeared to be somewhat volume depleted. A cautious, small fluid bolus was therefore administered. 08/07/24: patient more awake/alert today. Ongoing dyspnea reported with cough. No recurrent chest pain. Atrial flutter resolved at 19:01 on 08/06/23. Currently NSR in the 60-70's. Continue amiodarone 200 mg daily, metoprolol 25 mg daily, and Eliquis 2.5 mg BID (low dose based on age/weight). electrolytes also improved from admission. Ongoing supportive care for hMPV per hospitalist. No further cardiac testing warranted at this time. Will sign off. Please contact director transportation cardiology provider with additional questions or concerns. Case discussed with Dr. Malik I spent a total of 35 minutes on the date of service in preparation, delivery, and documentation of the care provided to this patient, excluding any time spent in the performance of separately billed services. Angela Ott PA-C Department of Cardiology, [facility] This chart was completed in part utilizing Speech Voice Recognition Software. Grammatical errors, random word insertions, pronoun errors, and incomplete sentences are an occasional consequence of this system due to software limitations, ambient noise, and hardware issues. Any formal questions or concerns about the content, text, or information contained within the body of this dictation should be directly addressed to the provider for clarification. Admission and Anticipated Discharge Date Admission Date: August 04, 2024 Supervising Physician Co-Signing Physician Notes I have personally performed a history and physical examination on the patient. I have reviewed the advance practitioner's documentation, and I agree with, and take responsibility for the plan of care. 83-year-old female with hypertrophic cardiomyopathy, acute human metapneumovirus infection and paroxysmal atrial flutter with rapid ventricular response. Clinically converted to normal sinus rhythm. Chronically treated as outpatient with reduced dose Eliquis due to age and weight. Recommend continue current dose of metoprolol, amiodarone, and Eliquis as ordered. No further inpatient cardiac testing or intervention recommended at this time. Cardiology will sign off. Please call with additional concerns/questions. I spent a total of 30 minutes on the date of service in preparation, delivery, and documentation of the care provided to this patient, excluding any time spent in the performance of separately billed services. Hernán Malik DO, [facility] Subjective Patient resting in bed comfortably. Ongoing conversational dyspnea and cough noted. No chest pain. No dizziness or lightheadedness. Review of Systems Review of Systems: All systems reviewed & are unremarkable except as noted in HPI & below Physical Exam Physical Exam: General: Alert and oriented x3; thin in appearance Eyes: conjunctiva are pink and non-injected, sclera clear Neck: normal jugular venous pulse, no hepatojugular reflux Chest: normal shape; + cough; mild conversational dyspnea Lungs: Decreased breath sounds; with scattered wheeze Cardiac Exam: Regular, no murmur detected Abdomen: abdomen soft, non-tender, no abnormal masses and no hepatosplenomegaly Musculoskeletal: no gait disturbance, no weakness Extremities: no edema and no cyanosis Neuro:Somnolent as noted Results & Data Vital Signs (Past 12 Hours) Vital Signs Temp Pulse Pulse Resp BP Pulse Ox O2 Del Method 08/07/24 08:18 Room Air 08/07/24 08:18 94 Room Air 08/07/24 07:19 36.5 C 64 16 115/68 97 Nasal Cannula 08/07/24 07:07 67 08/07/24 02:23 36.4 C L 68 18 136/67 98 Nasal Cannula O2 Flow Rate 08/07/24 08:18 08/07/24 08:18 08/07/24 07:19 1 08/07/24 07:07 08/07/24 02:23 2 Laboratory Results Cardiac Enzymes 08/06/24 Range/Units 15:27 Troponin I High Sens 38.6 H (0-14) pg/ml CBC 08/07/24 Range/Units 07:42 WBC 11.59 H (4.8-10.8) K/ul RBC 4.06 L (4.20-5.40) M/uL Hgb 10.5 L (12.0-16.0) g/dl Hct 33.9 L (37.0-47.0) % Plt Count (130-400) K/uL Comprehensive Metabolic Panel 08/06/24 08/07/24 Range/Units 15:27 07:42 Sodium 134 L (136-145) mmol/L Potassium 4.0 D 3.7 (3.5-5.1) mmol/L Chloride 102 (98-107) mmol/L Carbon Dioxide 25 (21-32) mmol/L BUN 19 (6-23) mg/dl Creatinine 0.82 (0.6-1.2) mg/dl Glucose 91 (70-99(Fasting)) mg/dl Calcium 8.6 (8.6-10.3) mg/dl Intake and Output 08/06/24 08/07/24 08/07/24 22:59 06:59 14:59 Intake Total 120 / 830 110 / 830 Output Total 1 / 3 Balance 119 / 827 110 / 827 Intake: Oral 120 / 280 110 / 280 Output: # Bowel Movements 1 / 3 Other: # Unmeasured Voids 1 2 Weight 46 kg Diagnostic Findings Telemetry reviewed:
--- NOTE | 2024-08-07 16:37 | Hospitalist Progress Note ---
Date of Service August 07, 2024 Assessment & Plan (1) Human metapneumovirus (hMPV) pneumonia: Plan: 83-year-old female with PMH of atrial fibrillation (on Eliquis), CHF, LBBB, CKD stage III, HTN, GERD, anxiety, rheumatoid arthritis, HOCM, diverticulitis, and IBS. She presented via EMS on 08/04 for SOB, productive cough, congestion, sore throat, intermittent fever, and weakness x 1 week. She does not wear supplemental oxygen at baseline wears CPAP at night. She initially required supplemental O2 to maintain adequate O2 saturation, but has since been weaned off O2 and remained stable on room air. -CXR on arrival revealed bilateral lower lung field opacities -hMPV (+) on arrival -Sputum culture ordered, not yet collected -Continue Cefepime 2000 mg IV q8h -- consider downgrading to Azithromycin -Continue Guaifenesin 600 mg p.o. q12h -Contact isolation precautions -No longer requiring supplemental O2 - use as needed to maintain O2 sat >90% (2) Chest pain: Plan: Acute change in status morning of 08/06/2024 when patient became pale, diaphoretic, short of breath, hypotensive, and had midsternal chest pain radiating to her right arm. Lethargic lying in bed, but wakes to voice and orie nted x 3 at that time. She had received tramadol 50 mg and lorazepam 0.5 mg about 30 minutes prior to symptom onset. Converted to NSR around 1900 on 08/06/2024. *Chronic diastolic (congestive) heart failure -EKG revealed A flutter with chronic LBBB and ST abnormalities similar to prior EKGs. Trop peaked at 47.5, then down trended -Cardiology now signed off -Currently in NSR, rate in 60-70s -Continue amiodarone 20 mg daily, metoprolol succinate 25 mg daily, Eliquis 2.5 mg twice daily, aspirin 81 mg daily -Metoprolol tartrate 5 mg IV as needed with parameters; use caution with AV anton blockers due to underlying HOCM -Lorazepam and tramadol have been discontinued (3) Electrolyte abnormality: Plan: Given arrhythmias, goal K=4.0 and mag=2.0 Potassium of 3.7 today, will provide 20 mEq PO x 1 AM BMP, mag (4) Thrombocytopenia: Plan: Thrombocytopenia appears to be chronic -Continue Aspirin for now - hold Aspirin if platelet count drops <90 -Continue Eliquis for now hold Eliquis if platelet count drops <50 -AM CBC (5) Rheumatoid arthritis: Plan: Continue folic acid In the setting of acute infection, held methotrexate on Sunday 08/06 Plan Reviewed telemetry Repleted potassium Chronic stable problems: Hypertension: Continue home antihypertensives; hypotension resolved after IV bolus with most recent BP 119/67 A-fib: Continue metoprolol, Eliquis; currently in NSR VTE PPx: Eliquis CODE STATUS: DNR/DNI Dispo: PT recommending short term rehab; patient from [facility] assisted living section Admission and Anticipated Discharge Date Admission Date: August 04, 2024 Subjective Patient seen and evaluated at bedside. She is much improved today compared to yesterday. She reports no further chest pain. She notes she is still dyspneic with exertion, but not at rest. She intermittently has a moist nonproductive cough. We discussed that she has remained in NSR since around 1900 last night. Informed patient that I did try calling her yesterday, but he did not answer and a voicemail cannot be left. She reports that her is 89 years old and does not really use his cell phone. Asked patient if she would like any other family or friends updated, which she declined. No additional complaints or concerns at this time. Physical Exam Physical Exam: General: Moderate distress diaphoretic, pale, frail-appearing elderly female. Cardiac: NSR in 60s70s. 3/6 systolic murmur noted. No peripheral edema noted. Pulm: Rhonchi in bases bilaterally but otherwise clear to auscultation without wheezes. No respiratory distress. 95% on room air. Abdominal: Soft, nontender, nondistended. Bowel sounds present. Neuro: A&O x3. No focal neurological deficits. Results & Data Results & Data Vital Signs (Past 12 Hours) Vital Signs Temp Pulse Pulse Resp BP Pulse Ox O2 Del Method 08/07/24 16:04 66 08/07/24 16:00 98.1 F 128 H 12 160/77 H 95 Room Air 08/07/24 14:15 66 08/07/24 11:20 97.5 F L 60 16 119/67 95 Nasal Cannula 08/07/24 08:18 Room Air 08/07/24 08:18 94 Room Air 08/07/24 07:19 97.7 F 64 16 115/68 97 Nasal Cannula 08/07/24 07:07 67 O2 Flow Rate 08/07/24 16:04 08/07/24 16:00 08/07/24 14:15 08/07/24 11:20 1 08/07/24 08:18 08/07/24 08:18 08/07/24 07:19 1 08/07/24 07:07 Laboratory Results Reviewed CBC Reviewed BMP/mag Flow cytometry pending PG Care Time/CCT Total # of Minutes Spent Total Time Spent with Patient: Total time spent is greater than 50% in coordination of care (as documented) at patient's floor/unit and/or counseling patient: Coding Level of Care Code 81319 SUB INP/OBS CARE 3/50MIN Diagnoses Human metapneumovirus (hMPV) pneumonia J12.3 Chest pain R07.9 Electrolyte abnormality E87.8 Thrombocytopenia D69.6 Rheumatoid arthritis M06.9
[2024-08-07] MEDS: POTASSIUM CHLORIDE CRTAB 20 MEQ TABCR PO STA (16:54)
--- NOTE | 2024-08-08 06:05 | Electrocardiogram Report ---
Test Reason : Blood Pressure : */* mmHG Vent. Rate : 99 BPM Atrial Rate : 99 BPM P-R Int : 128 ms QRS Dur : 154 ms QT Int : 444 ms P-R-T Axes : 89 -51 122 degrees QTcB Int : 569 ms Sinus rhythm with marked sinus arrhythmia Left axis deviation Left bundle branch block Abnormal ECG When compared with ECG of 04-Aug-2024 11:08, HR has increased Confirmed by Dawson Graves ([id number]) on 08/08/2024 6:05:37 AM Referred By: REFERRED SELF Confirmed By: Dawson Graves
[2024-08-08 06:57] LABS: BUN Creatinine Ratio 21.5 (10-20); Calcium 8.5 mg/dl (8.6-10.3); Creatinine Clr Calc Pharmacy 48.9 ml/min; Magnesium 1.8 mg/dl (1.7-2.4); Potassium 3.5 mmol/L (3.5-5.1)
[2024-08-08 07:08] LABS: Hematocrit (blood only) 33.2 % (37.0-47.0); Hemoglobin 10.4 g/dl (12.0-16.0); Mean Corpuscular Hemoglobin 25.7 pg (25.0-34.0); Mean Corpuscular Hgb Conc 31.3 g/dL (32.0-36.0); RDW Coefficient of Variation 19.9 % (11.5-14.5); RDW Standard Deviation 58.3 fL (36.4-46.3); Red Blood Count 4.05 M/uL (4.20-5.40); White Blood Count 8.44 K/ul (4.8-10.8)
--- NOTE | 2024-08-08 07:59 | Hospitalist Progress Note ---
Date of Service August 08, 2024 Assessment & Plan (1) Human metapneumovirus (hMPV) pneumonia: Plan: 83-year-old female with PMH of atrial fibrillation (on Eliquis), CHF, LBBB, CKD stage III, HTN, GERD, anxiety, rheumatoid arthritis, HOCM, diverticulitis, and IBS. She presented via EMS on 08/04 for SOB, productive cough, congestion, sore throat, intermittent fever, and weakness x 1 week. She does not wear supplemental oxygen at baseline wears CPAP at night. She initially required supplemental O2 to maintain adequate O2 saturation, but has since been weaned off O2 and remained stable on room air. CXR on arrival revealed bilateral lower lung field opacities, ?atelectasis vs pneumonia [employer] POSITIVE hMPV, isolation precautions Pulmonary toilet with mucinex BID, supplemental O2 to maintain sats (no longer requiring) Had been placed on Cefepime IV on admission, given no white count on admission (procal not obtained), discussed with supervising provider and will DISCONTINUE further abx Can consider azithro for atypical coverage if needed Continue pulmonary toilet: - xopenex nebs ordered prn - added incentive spirometer - lidocaine patch for rib discomfort - cough syrup prn Will repeat CXR for comparison, can entertain sputum cx if needed but will defer ongoing abx as outlined PT/OT recs SNF, from [place]. Cm following/[facility] referral in place but likely no bed until tomorrow 08/09 (2) Chest pain: Plan: Acute change in status morning of 08/06/2024 when patient became pale, diaphoretic, short of breath, hypotensive, and had midsternal chest pain radiating to her right arm. Lethargic lying in bed, but wakes to voice and oriented x 3 at that time. She had received tramadol 50 mg and lorazepam 0.5 mg about 30 minutes prior to symptom onset. Converted to NSR around 1900 on 08/06/2024. *Chronic diastolic (congestive) heart failure EKG revealed A flutter with chronic LBBB and ST abnormalities similar to prior EKGs. Trop peaked at 47.5, then down trended Cardiology now signed off Currently in NSR, rate in 60-70s Continue amiodarone, metoprolol succinate, reduced dose Eliquis BID for age/weight, ASA 81mg daily Metoprolol IV available (use caution with AV anton blockers due to underlying HOCM) Have dc lorazepam and tramadol No further CP reported. Will order 1gm IV mag for mag 1.8 to keep closer to 2. 20meq Kcl for K 3.5 to keep closer to 4. Continued tele monitoring (3) Electrolyte abnormality: Plan: Given arrhythmias, goal K=4.0, mag=2.0 Additional 1gm IV mag for 1.8, 20meq Kcl to keep closer Monitor BMP/Mag in AM (4) Thrombocytopenia: Plan: Thrombocytopenia appears to be chronic -Continue Aspirin for now - hold Aspirin if platelet count drops <90 -Continue Eliquis for now hold Eliquis if platelet count drops <50 -AM CBC (5) Rheumatoid arthritis: Plan: Continue folic acid In the setting of acute infection, held methotrexate on Sunday 08/06 Plan Chronic stable problems: Hypertension: Continue home antihypertensives; hypotension resolved after IV bolus with most recent BP 139/79 A-fib: Continue metoprolol, Eliquis; currently in NSR and remains on telemetry Dispo: continued inpatient stay, [facility] planned for SNF given [place] unable to take back w/ current therapy evals. [facility] following, hopefully able to accept 08/09 Admission and Anticipated Discharge Date Admission Date: August 04, 2024 Supervising Physician Co-Signing Physician Notes The patient was not seen by me. The chart was reviewed. Case discussed with JENNY Winkler. Agree with assessment and plan Subjective Eval this morning, ambulating back from the bathroom. Decreased cough/sputum production compared to when she came in. Still has some dyspnea on exertion/gets tired quickly. She reports "they want me to go to rehab at [facility]" when she really wants to be home with . Discussed short term rehab to ensure safe before returning home. Incentive spirometer to be encouraged. Will order lidocaine patch to left ribs for comfort with coughing, add cough syrup. Questions/concerns addressed at this time. Physical Exam 2 Physical Exam: General: 83yo female ambulating from the bathroom back to bed, NAD but dyspneic on exertion, on ROOM AIR HEENT: head atraumatic, normocephalic, mm slightly dry, trachea midline Resp: diminished in the bases with associated crackles, faint expiratory wheeze, no rales, on ROOM AIR 94%, +cough, +left sided rib discomfort from cough, reproducible CV: RRR, PAC/PVC on monitor but no further aflutter, rates controlled, no pitting edema/calf tenderness GI: +BS, soft/NT MSK/Neuro: nonfocal, not confused, answering questions appropriately Psych: AOx3, cooperative but irritable about not returning home/need for rehab. Results & Data Results & Data Vital Signs (Past 12 Hours) Vital Signs Temp Pulse Pulse Resp BP BP Pulse Ox 08/08/24 03:20 36.4 C L 58 L 18 144/78 H 95 08/07/24 22:56 36.6 C 62 18 134/54 L 96 08/07/24 21:52 60 08/07/24 21:19 O2 Del Method 08/08/24 03:20 Room Air 08/07/24 22:56 Room Air 08/07/24 21:52 08/07/24 21:19 Room Air Laboratory Results 08/08/24 05:48 08/08/24 05:48 Plt 133 Mag 1.8 PG Care Time/CCT Total # of Minutes Spent Total Time Spent with Patient: Total time spent is greater than 50% in coordination of care (as documented) at patient's floor/unit and/or counseling patient: Coding Level of Care Code 67820 SUB INP/OBS CARE 2/35MIN Diagnoses Human metapneumovirus (hMPV) pneumonia J12.3 Chest pain R07.9 Electrolyte abnormality E87.8 Thrombocytopenia D69.6 Rheumatoid arthritis M06.9
[2024-08-08] MEDS: MAGNESIUM SULFATE / D5W 1 GM/100 ML BAG IV ONE (08:48)
[2024-08-08] MEDS ORDERED: LEVALBUTEROL HCL 0.63 MG/3 ML NEB NEB PRN (11:33)
[2024-08-08] MEDS: POTASSIUM CHLORIDE CRTAB 20 MEQ TABCR PO STA (12:55)
[2024-08-08] MEDS: LIDOCAINE 5% 1 PATCH TD SCH (12:55)
--- NOTE | 2024-08-08 13:44 | XRay Report ---
XR chest 2V PA/lateral CLINICAL HISTORY: f/u hMPV, pneumonia vs atelectasis COMPARISON STUDY: 08/04/2024 FINDINGS: Heart size and pulmonary vasculature are normal. Prior opacity at the right lung base has i mproved. No pneumonia or pleural effusion seen. Stable scoliosis. IMPRESSION: Improved opacity at the right lung base, resolving pneumonia versus atelectasis. ACT 112: Negative or not required by law. Electronically signed by: Mauricio Broussard M.D. 08/08/2024 1:43 PM
[2024-08-08] MEDS: LORazepam 0.5 MG TAB PO STA (20:44)
--- NOTE | 2024-08-09 07:50 | Hospitalist Progress Note ---
Date of Service August 09, 2024 Assessment & Plan (1) Human metapneumovirus (hMPV) pneumonia: Plan: 83-year-old female with PMH of atrial fibrillation (on Eliquis), CHF, LBBB, CKD stage III, HTN, GERD, anxiety, rheumatoid arthritis, HOCM, diverticulitis, and IBS. She presented via EMS on 08/04 for SOB, productive cough, congestion, sore throat, intermittent fever, and weakness x 1 week. She does not wear supplemental oxygen at baseline wears CPAP at night. She initially required supplemental O2 to maintain adequate O2 saturation, but has since been weaned off O2 and remained stable on room air. CXR on arrival revealed bilateral lower lung field opacities, ?atelectasis vs pneumonia [employer] POSITIVE hMPV, isolation precautions in place Pulmonary toilet, mucinex, xopenex prn, lidocaine patch, cough syrup, incentive spirometry encouraged (added 08/08) Cefepime IV continued but discussed with supervising provider 08/08 and was discontinued however given exam/continued cough which was brown and now stapleton with slight elevated procal and resumed Cefepime 08/09 (missed doses on 08/08) However, notable CXR without evidence for pneumonia today and on room air but could be from prior treatment as received Cefepime from 08/05-08/07 Did have reports vtach on monitor this morning but not accurate. Was given 1gm IV mag/Zofran IV and instructed to give her cardiac medications following. No CP reported or heaviness. Telemetry with stable HR control, no further aflutter noted. Supplemental O2 if needed to maintain sats PT/OT rec SNF, [facility] to take today however patient decided against. CM to f/u in AM and will ask about repeating therapy evals (2) Chest pain: Plan: Acute change in status morning of 08/06/2024 when patient became pale, diaphoretic, short of breath, hypotensive, and had midsternal chest pain radiating to her right arm. Lethargic lying in bed, but wakes to voice and oriented x 3 at that time. She had received tramadol 50 mg and lorazepam 0.5 mg about 30 minutes prior to symptom onset. Converted to NSR around 1900 on 08/06/2024. *Acute on Chronic diastolic (congestive) heart failure EKG revealed A flutter with chronic LBBB and ST abnormalities similar to prior EKGs. Trop peaked at 47.5, then down trended following and has been in NSR w/ PAC/PVCs but no further episodes and has dc ativan/tramadol No further CP reported despite nausea this morning. Continue home meds: amiodarone, metoprolol, eliquis, asa+ Metoprolol IV available (use caution with AV anton blockers due to underlying HOCM) Cardiology signed off, can reach out if needed. Agrees reported vtach this AM NOT accurate Will continue on telemetry, 1gm IV mag ordered to keep closer to 2, will order 20meq KCL to keep K closer to 4 (3) Iron deficiency: Plan: checked given chronic anemia and her afib iron studies w/ low iron/trans % sat Will order Venofer 200mg IV daily while inpatient. No bleeding reported but is on eliquis/aspirin at baseline. Monitor CBC/any bleeding (4) Rheumatoid arthritis: Plan: Continue folic acid In the setting of acute infection, held methotrexate on Sunday 08/06 Tylenol available, may need to monitor for escalation as needed PT/OT evals to be repeated in AM (5) Thrombocytopenia: Plan: Thrombocytopenia appears to be chronic Continue Aspirin for now - hold Aspirin if platelet count drops <90 Continue Eliquis for now hold Eliquis if platelet count drops <50 ( Plt stable at 184 and will monitor CBC, prior peripheral smear negative (6) Atrial flutter with rapid ventricular response: Plan: noted earlier in the stay, cards consulted and back in NSR. Continued telemetry/electrolyte replacement as needed (7) Electrolyte abnormality: Plan: Given arrhythmias, goal K=4.0, mag=2.0 as above Additional 1gm Mag, 20meq Kcl for today Plan Dispo: continued inpatient stay, [facility] planned for SNF given [place] unable to take back w/ current therapy evals however patient reporting today she does not want to do that. CM to follow up in AM. Will see about repeat therapy evals in AM if improved. Cefepime resumed given procal borderline 0.53 and can transition to PO in AM to cover for GN if no issues overnight. ?dc to [facility] if improvement with therapy evals but otherwise will need to consider. She is hopeful to return home w/ her at the [place] Admission and Anticipated Discharge Date Admission Date: August 04, 2024 Supervising Physician Co-Signing Physician Notes The patient was not seen by me. The chart was reviewed. Case discussed with JENNY Winkler. Agree with assessment and plan Subjective Eval this morning, reports she was feeling better last night and then feels poorly this morning/nauseated. Did not get her morning meds due to nausea/no vomiting. Was provided phenergan PO, reports not very effective. Will have nursing provide Zofran IV. Mag 1gm IV for vtach on monitor/cardiology notified as previously signed off however review of telemetry was read as vtach but confirmed w/ technical applications specialist and cards, NOT vtach and artifact. RN to provide her AM meds once zofran in as able. Remains on RA at present but appears fatigued, no CP at present. Ongoing cough, was brown/stapleton, now green/yellow but nasal discharge and not bringing up sputum by mouth but if does will plan to report. She does report she does not want [facility]. CM to be notified as got message transportation arranged @15:30. Physical Exam 2 Physical Exam: General: 83yo female resting in bed, fatigued appearing/reporting nausea but no vomiting, generalized pallor HEENT: head atraumatic, normocephalic, mm slightly dry, trachea midline Resp: diminished in the bases with associated crackles, but remains on room air, left sided rib discomfort from coughing/lidocaine patch to be placed CV: RRR, PAC/PVC on monitor but no further aflutter/Vtach, rates controlled, no pitting edema/calf tenderness GI: +BS, soft but slightly distended, NONTENDER MSK/Neuro: nonfocal, not confused, answering questions appropriately Psych: AOx3, cooperative but fatigued appearing Results & Data Results & Data Vital Signs (Past 12 Hours) Vital Signs Temp Pulse Pulse Resp BP BP Pulse Ox 08/09/24 07:32 36.3 C L 67 20 129/79 99 08/09/24 07:23 68 08/09/24 03:28 36.6 C 68 18 140/76 99 08/09/24 00:44 36.6 C 75 20 145/75 H 98 08/08/24 22:53 69 08/08/24 22:19 08/08/24 20:08 36.6 C 71 18 167/77 H 94 O2 Del Method 08/09/24 07:32 Room Air 08/09/24 07:23 08/09/24 03:28 Room Air 08/09/24 00:44 Room Air 08/08/24 22:53 08/08/24 22:19 Room Air 08/08/24 20:08 Room Air Laboratory Results 08/09/24 07:25 08/09/24 07:25 Mag 1.9 TSH 7.038, T4 1.42 Procal 0.58 Iron 21, TIBC 337, Transferrin 241, Trans % sat LOW 6%, ferritin 81.4 Diagnostic Findings Chest X-Ray 08/09/24 10:38 XR chest 1V portable CLINICAL HISTORY: SOB, eval PNA, vtach COMPARISON STUDY: 08/08/2024 FINDINGS: There are mitral valvular calcifications. Heart size and pulmonary vasculature are normal. No consolidation, pleural effusion, or pneumothorax seen. Stable scoliosis. IMPRESSION: No pneumonia seen. ACT 112: Negative or not required by law. Electronically signed by: Mauricio Broussard M.D. 08/09/2024 1:01 PM PG Care Time/CCT Total # of Minutes Spent Total Time Spent with Patient: Total time spent is greater than 50% in coordination of care (as documented) at patient's floor/unit and/or counseling patient: Coding Level of Care Code 36060 SUB INP/OBS CARE 3/50MIN Diagnoses Human metapneumovirus (hMPV) pneumonia J12.3 Chest pain R07.9 Iron deficiency E61.1 Rheumatoid arthritis M06.9 Thrombocytopenia D69.6 Atrial flutter with rapid ventricular response I48.92 Electrolyte abnormality E87.8
[2024-08-09 08:06] LABS: BUN Creatinine Ratio 14.9 (10-20); Calcium 8.8 mg/dl (8.6-10.3); Creatinine Clr Calc Pharmacy 47.3 ml/min; Magnesium 1.9 mg/dl (1.7-2.4); Potassium 3.7 mmol/L (3.5-5.1)
[2024-08-09 08:09] LABS: Hematocrit (blood only) 34.8 % (37.0-47.0); Hemoglobin 10.7 g/dl (12.0-16.0); Mean Corpuscular Hemoglobin 25.2 pg (25.0-34.0); Mean Corpuscular Hgb Conc 30.7 g/dL (32.0-36.0); Mean Corpuscular Volume 82.1 fL (80.0-100.0); RDW Coefficient of Variation 19.9 % (11.5-14.5); RDW Standard Deviation 58.7 fL (36.4-46.3); Red Blood Count 4.24 M/uL (4.20-5.40); White Blood Count 8.96 K/ul (4.8-10.8)
[2024-08-09 08:12] LABS: Anisocytosis Present; Basophils # (auto) 0.02 K/uL (0.00-0.20); Basophils % (auto) 0.2 %; Eosinophils % (auto) 1.1 %; Immature Granulocytes # (auto) 0.07 K/uL (0.01-0.20); Immature Granulocytes % (auto) 0.8 %; Lymphocytes # (auto) 2.06 K/uL (1.20-3.40); Microcytosis Present; Monocytes # (auto) 0.85 K/uL (0.11-0.59); Monocytes % (auto) 9.5 %; Neutrophils # (auto) 5.86 K/uL (1.40-6.50); Neutrophils % (auto) 65.4 %; Ovalocytes 1+; Polychromasia 1+; Tear Drop Cells 1+
[2024-08-09 08:20] LABS: Thyroid Stimulating Hormone 7.038 uIu/ml (0.300-4.500)
[2024-08-09 08:56] LABS: T4 Free Thyroxine 1.42 ng/dl (0.61-1.60)
[2024-08-09] MEDS ORDERED: Nursing to Pharmacy Communication SCH (10:45)
[2024-08-09] MEDS: ONDANSETRON INJ 2 MG/ML 2 ML VIAL IV PRN (11:08)
[2024-08-09] MEDS: CEFEPIME 2000MG 2,000 MG/20 ML SYR IV SCH (11:08)
[2024-08-09 12:03] LABS: Ferritin 81.4 ng/ml (8-388)
[2024-08-09] MEDS: MAGNESIUM SULFATE / D5W 1 GM/100 ML BAG IV ONE (12:25)
--- NOTE | 2024-08-09 13:03 | XRay Report ---
XR chest 1V portable CLINICAL HISTORY: SOB, eval PNA, vtach COMPARISON STUDY: 08/08/2024 FINDINGS: There are mitral valvular calcifications. Heart size and pulmonary vasculature are normal. No consolidation, pleural effusion, or pneumothorax seen. Stable scoliosis. IMPRESSION: No pneumonia seen. ACT 112: Negative or not required by law. Electronically signed by: Mauricio Broussard M.D. 08/09/2024 1:01 PM
[2024-08-09] MEDS: POTASSIUM CHLORIDE CRTAB 20 MEQ TABCR PO STA (18:05)
--- NOTE | 2024-08-09 18:22 | XRay Report ---
Clinical history: Evaluate stool burden One view of the abdomen was obtained Comparison is made to the prior examination dated 12/06/2023 Findings: There is no sign of bowel obstruction. There is mild constipation. No renal or ureteral calculi are seen. No foreign body is evident. There is thoracic and lumbar scoliosis and degenerative disc disease. There is an extensive lumbosacral and iliac fusion Impression: Mild constipation Electronically signed by Medhat Bond 08-09-2024 6:21 PM
[2024-08-09] MEDS: IRON SUCROSE 200 MG in SODIUM CHLORIDE 0.9% 100 ML IV SCH (19:05)
[2024-08-09 20:05] VITALS: RESP 18
[2024-08-09] MEDS: LORazepam 0.5 MG TAB PO PRN (21:01)
[2024-08-10 07:03] LABS: BUN Creatinine Ratio 14.3 (10-20); Calcium 8.9 mg/dl (8.6-10.3); Creatinine Clr Calc Pharmacy 42.5 ml/min; Potassium 3.7 mmol/L (3.5-5.1)
[2024-08-10 07:18] LABS: Hematocrit (blood only) 34.3 % (37.0-47.0); Hemoglobin 10.7 g/dl (12.0-16.0); Mean Corpuscular Hemoglobin 25.8 pg (25.0-34.0); Mean Corpuscular Hgb Conc 31.2 g/dL (32.0-36.0); Mean Corpuscular Volume 82.7 fL (80.0-100.0); RDW Standard Deviation 59.4 fL (36.4-46.3); Red Blood Count 4.15 M/uL (4.20-5.40); White Blood Count 8.52 K/ul (4.8-10.8)
[2024-08-10 07:31] LABS: Anisocytosis Present; Basophils # (auto) 0.02 K/uL (0.00-0.20); Basophils % (auto) 0.2 %; Eosinophils # (auto) 0.13 K/uL (0.00-0.50); Eosinophils % (auto) 1.5 %; Immature Granulocytes # (auto) 0.07 K/uL (0.01-0.20); Immature Granulocytes % (auto) 0.8 %; Lymphocytes # (auto) 2.15 K/uL (1.20-3.40); Lymphocytes % (auto) 25.2 %; Monocytes % (auto) 10.6 %; Neutrophils # (auto) 5.25 K/uL (1.40-6.50); Neutrophils % (auto) 61.7 %; Ovalocytes 1+
--- NOTE | 2024-08-10 07:43 | Electrocardiogram Report ---
Test Reason : Blood Pressure : */* mmHG Vent. Rate : 67 BPM Atrial Rate : 67 BPM P-R Int : 208 ms QRS Dur : 152 ms QT Int : 524 ms P-R-T Axes : 71 -42 121 degrees QTcB Int : 553 ms Sinus rhythm with Premature supraventricular complexes Possible Left atrial enlargement Left axis deviation Left bundle branch block Abnormal ECG When compared with ECG of 06-Aug-2024 10:07, Premature supraventricular complexes are now Present Confirmed by Dawson Graves ([id number] on 08/10/2024 7:42:29 AM Referred By: REFERRED SELF Confirmed By: Dawson Graves
--- NOTE | 2024-08-10 13:58 | Hospitalist Progress Note ---
Date of Service August 10, 2024 Assessment & Plan (1) Human metapneumovirus (hMPV) pneumonia: Plan: 83-year-old female with PMH of atrial fibrillation (on Eliquis), CHF, LBBB, CKD stage III, HTN, GERD, anxiety, rheumatoid arthritis, HOCM, diverticulitis, and IBS. She presented via EMS on 08/04 for SOB, productive cough, congestion, sore throat, intermittent fever, and weakness x 1 week. She does not wear supplemental oxygen at baseline wears CPAP at night. She initially required supplemental O2 to maintain adequate O2 saturation, but has since been weaned off O2 and remained stable on room air. CXR on arrival revealed bilateral lower lung field opacities ?atelectasis vs pneumonia [employer] POSITIVE hMPV isolation precautions in place Pulmonary toilet: mucinex/xopenex prn, lidocaine patch, cough syrup as needed and encouraged incentive spirometer Cefepime IV resumed 08/09 given mild elevation in procal w/ worsening reported 08/09 and appears improved today. CXR however on repeat noted no pneumonia, ?alternative cause. Iron studies w/ [employer], could contribute to elevated procal w/ anemia as well, no bleeding reported. Monitor stool studies for cdiff on abx given nausea/prior +gene testing. Prior KUB noting mild constipation but moved bowels x 3 this morning Stable telemetry, ativan HS resumed by residents and reports taking at night but not during the day and will continue given appears improved Supplemental O2 if needed to maintain sats but has been stable Will have therapy repeat evals given reported improvement/not wanting to go to [facility] and wanting to go back to prior living with but do have concerns if not improving would not be ideal option but will monitor with continued tx. CM to follow (2) Chest pain: Plan: Acute change in status morning of 08/06/2024 when patient became pale, diaphoretic, short of breath, hypotensive, and had midsternal chest pain radiating to her right arm. Lethargic lying in bed, but wakes to voice and oriented x 3 at that time. She had received tramadol 50 mg and lorazepam 0.5 mg about 30 minutes prior to symptom onset. Converted to NSR around 1900 on 08/06/2024. *Acute on Chronic diastolic (congestive) heart failure EKG revealed A flutter with chronic LBBB and ST abnormalities similar to prior EKGs. Trop peaked at 47.5, then down trended following and has been in NSR w/ PAC/PVCs but no further episodes and has dc ativan/tramadol (noting resumed low dose ativan HS and can continue/prevent withdrawal as takes regularly in the evening but not her daytime dosing) No CP reported 08/09, 08/10 but did have nausea. Zofran effective but not given this morning and to provide/monitor Continue home meds: amiodarone, metoprolol, eliquis, asa+ EKG w/ CP if needed, cautious use AV anton blockers due to underlying HOCM. Stable telemetry, cardiology have signed off. (3) Iron deficiency: Plan: checked iron studies given chronic anemia and her afib. TSH elevated but normal T4/T3 iron studies w/ low iron/trans % sat Venofer 200mg IV daily while inpatient (day 2 on 08/10) and will continue. No bleeding reported (4) Rheumatoid arthritis: Plan: Continue folic acid In the setting of acute infection, held methotrexate on Sunday 08/06 Tylenol available, may need to monitor for escalation as needed but appears comfortable at this time PT/OT evals to be repeated in AM to see if stronger/able to return to prior living (5) Thrombocytopenia: Plan: Thrombocytopenia appears to be chronic Continue Aspirin for now - hold Aspirin if platelet count drops <90 Continue Eliquis for now hold Eliquis if platelet count drops <50 ( Plt stable and will monitor CBC, prior peripheral smear negative (6) Atrial flutter with rapid ventricular response: Plan: noted earlier in the stay, cards consulted and back in NSR. Continued telemetry/electrolyte replacement as needed, mag/K replacement to keep closer to 2/4 given arrhythmias and remains on metoprolol/amio/eliquis BID Plan Dispo: continued inpatient stay on Cefepime, check cdiff given diarrhea/nausea and if negative can add probiotic but likely able to complete tx in AM (noting did have lapse 24hr on 08/08, will discuss w/ supervising provider). [facility] planned/accepted but patient not wanting to go there and pref [place] w/ her but concerns w/ her ability to take care of him and will see on repeat therapy evals if improving as reported. CM to follow Admission and Anticipated Discharge Date Admission Date: August 04, 2024 Supervising Physician Co-Signing Physician Notes The patient was not seen by me. The chart was reviewed. Case discussed with JENNY Winkler. Agree with assessment and plan Subjective Eval this afternoon, resting in bed. Got ativan PO x 1 last evening for anxiety, she does take usually at night for sleep but doesnt frequently take during the day. She reports feeling better but having nausea, hasn't gotten anything and will have RN administer. She isn't particularly hungry, reports same foods over and over again. Would like BLT/orange sherbert, will call kitch/adjust diet, to alert of any specific wants/needs. She is hoping to return to [facility], will have repeat therapy evals. BM x 3, loose stool reported. 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 RN to collect next BM to send, will monitor. RN notified to provide zofran. Physical Exam 2 Physical Exam: General: 83yo female resting in bed, appears/reports improved from yesterday, ongoing nausea/RN to administer zofran HEENT: head atraumatic, normocephalic, mm slightly dry, trachea midline Resp: diminished in the bases with associated crackles, IMPROVED air entry bilaterally but coughs with deep breathing, lidocaine patch to back reported effective, remains on ROOM AIR CV: RRR, PAC/PVC with 1st degree on monitor, no pitting edema/calf tenderness GI: +BS, soft/slight distension but less distended than yesterday, no overt tenderness/guarding/rebound and reported BM x 3 this morning MSK/Neuro: nonfocal, not confused, answering questions appropriately Psych: AOx3, cooperative but fatigued appearing but improved from yesterday Results & Data Results & Data Vital Signs (Past 12 Hours) Vital Signs Temp Pulse Pulse Resp BP Pulse Ox O2 Del Method 08/10/24 11:11 36.4 C L 66 18 117/66 91 Room Air 08/10/24 10:51 Room Air 08/10/24 07:50 36.5 C 65 18 111/70 90 Room Air 08/10/24 07:15 65 08/10/24 03:39 36.3 C L 68 18 128/64 93 Room Air Laboratory Results 08/10/24 05:52 08/10/24 05:52 Diagnostic Findings KUB X-Ray 08/09/24 17:26 Clinical history: Evaluate stool burden One view of the abdomen was obtained Comparison is made to the prior examination dated 12/06/2023 Findings: There is no sign of bowel obstruction. There is mild constipation. No renal or ureteral calculi are seen. No foreign body is evident. There is thoracic and lumbar scoliosis and degenerative disc disease. There is an extensive lumbosacral and iliac fusion Impression: Mild constipation Electronically signed by Medhat Bond 08-09-2024 6:21 PM PG Care Time/CCT Total # of Minutes Spent Total Time Spent with Patient: Total time spent is greater than 50% in coordination of care (as documented) at patient's floor/unit and/or counseling patient: Coding Level of Care Code 85158 SUB INP/OBS CARE 3/50MIN Diagnoses Human metapneumovirus (hMPV) pneumonia J12.3 Chest pain R07.9 Iron deficiency E61.1 Rheumatoid arthritis M06.9 Thrombocytopenia D69.6 Atrial flutter with rapid ventricular response I48.92
[2024-08-10] MEDS: FAMOTIDINE 20 MG TAB PO SCH (20:24)
[2024-08-11 00:08] VITALS: TEMP 97.9
[2024-08-11] MEDS: guaiFENesin/DEXTROM SYRUP 100MG/10MG 5ML UDC PO PRN (07:54)
--- NOTE | 2024-08-11 08:18 | Hospitalist Progress Note ---
Date of Service August 11, 2024 Assessment & Plan (1) Human metapneumovirus (hMPV) pneumonia: Plan: 83-year-old female with PMH of atrial fibrillation (on Eliquis), CHF, LBBB, CKD stage III, HTN, GERD, anxiety, rheumatoid arthritis, HOCM, diverticulitis, and IBS. She presented via EMS on 08/04 for SOB, productive cough, congestion, sore throat, intermittent fever, and weakness x 1 week. She does not wear supplemental oxygen at baseline wears CPAP at night. She initially required supplemental O2 to maintain adequate O2 saturation, but has since been weaned off O2 and remained stable on room air. CXR on arrival revealed bilateral lower lung field opacities ?atelectasis vs pneumonia [employer] POSITIVE hMPV isolation precautions in place Pulmonary toilet: mucinex/xopenex prn, lidocaine patch, cough syrup as needed and encouraged incentive spirometer Cefepime IV resumed 08/09 given mild elevation in procal w/ worsening reported 08/09 and appears improved today. CXR however on repeat noted no pneumonia, ?alternative cause. Iron studies w/ [place], could contribute to elevated procal w/ anemia as well, no bleeding reported. Monitor stool studies for cdiff on abx given nausea/prior +gene testing. Prior KUB noting mild constipation but moved bowels x 3 this morning Stable telemetry, ativan HS resumed by residents and reports taking at night but not during the day and will continue given appears improved Supplemental O2 if needed to maintain sats but has been stable Will have therapy repeat evals given reported improvement/not wanting to go to [facility] and wanting to go back to prior living with but do have concerns if not improving would not be ideal option but will monitor with continued tx. CM to follow 08/11 - Cefepime IV, repeat procal ____ - BNP 453, prior in [facility] 2023 618 (2) Chest pain: Plan: Acute change in status morning of 08/06/2024 when patient became pale, diaphoretic, short of breath, hypotensive, and had midsternal chest pain radiating to her right arm. Lethargic lying in bed, but wakes to voice and oriented x 3 at that time. She had received tramadol 50 mg and lorazepam 0.5 mg about 30 minutes prior to symptom onset. Converted to NSR around 1900 on 08/06/2024. *Acute on Chronic diastolic (congestive) heart failure EKG revealed A flutter with chronic LBBB and ST abnormalities similar to prior EKGs. Trop peaked at 47.5, then down trended following and has been in NSR w/ PAC/PVCs but no further episodes and has dc ativan/tramadol (noting resumed low dose ativan HS and can continue/prevent withdrawal as takes regularly in the evening but not her daytime dosing) No CP reported 08/09, 08/10 but did have nausea. Zofran effective but not given this morning and to provide/monitor Continue home meds: amiodarone, metoprolol, eliquis, asa+ EKG w/ CP if needed, cautious use AV anton blockers due to underlying HOCM. Stable telemetry, cardiology have signed off. (3) Iron deficiency: Plan: checked iron studies given chronic anemia and her afib. TSH elevated but normal T4/T3 iron studies w/ low iron/trans % sat Venofer 200mg IV daily while inpatient (day 2 on 08/10) and will continue. No bleeding reported (4) Rheumatoid arthritis: Plan: Continue folic acid In the setting of acute infection, held methotrexate on Sunday 08/06 Tylenol available, may need to monitor for escalation as needed but appears comfortable at this time PT/OT evals to be repeated in AM to see if stronger/able to return to prior living (5) Thrombocytopenia: Plan: Thrombocytopenia appears to be chronic Continue Aspirin for now - hold Aspirin if platelet count drops <90 Continue Eliquis for now hold Eliquis if platelet count drops <50 ( Plt stable and will monitor CBC, prior peripheral smear negative (6) Atrial flutter with rapid ventricular response: Plan: noted earlier in the stay, cards consulted and back in NSR. Continued telemetry/electrolyte replacement as needed, mag/K replacement to keep closer to 2/4 given arrhythmias and remains on metoprolol/amio/eliquis BID Plan Dispo: continued inpatient stay on Cefepime, check cdiff given diarrhea/nausea and if negative can add probiotic but likely able to complete tx in AM (noting did have lapse 24hr on 08/08, will discuss w/ supervising provider). [facility] planned/accepted but patient not wanting to go there and pref [place] w/ her but concerns w/ her ability to take care of him and will see on repeat therapy evals if improving as reported. CM to follow Admission and Anticipated Discharge Date Admission Date: August 04, 2024 Subjective Eval this afternoon, resting in bed. Appears improved. Reported feeling better this AM, has nausea at times/comes/goes. Reports chronic in naturee, typically on zofran PO at home and discussed will change IV to PO as needed. Breathing stable, cefepime IV continued. No further BM this morning as waiting for stool sample. Abd slight distension but no overt tenderness but does have some cramping and will monitor but to alert if worsened which she denies but reports "now they want a stool when I haven't had one today". Reported she did get her BLT last evening for supper, She was thankful for such. Discussed to alert nursing if having want for anything able to accomodate as able. She is now agreeable to [facility], hopefully able to dc in AM vs Wednesday per CM. Questions/concerns addressed at this time. Results & Data Results & Data Vital Signs (Past 12 Hours) Vital Signs Temp Pulse Pulse Resp BP Pulse Ox O2 Del Method 08/11/24 07:57 36.6 C 61 18 118/69 92 Room Air 08/11/24 03:35 36.6 C 69 18 128/62 94 Room Air 08/11/24 00:07 36.6 C 69 18 124/65 93 Room Air 08/10/24 23:04 69 08/10/24 22:11 Room Air PG Care Time/CCT Total # of Minutes Spent Total Time Spent with Patient: Total time spent is greater than 50% in coordination of care (as documented) at patient's floor/unit and/or counseling patient: Coding Diagnoses Human metapneumovirus (hMPV) pneumonia J12.3 Chest pain R07.9 Iron deficiency E61.1 Rheumatoid arthritis M06.9 Thrombocytopenia D69.6 Atrial flutter with rapid ventricular response I48.92
[2024-08-11 08:20] LABS: BUN Creatinine Ratio 13.3 (10-20); Calcium 8.7 mg/dl (8.6-10.3); Creatinine Clr Calc Pharmacy 38.9 ml/min; Magnesium 1.7 mg/dl (1.7-2.4); Potassium 3.4 mmol/L (3.5-5.1)
[2024-08-11 08:26] LABS: Hematocrit (blood only) 31.6 % (37.0-47.0); Hemoglobin 9.7 g/dl (12.0-16.0); Mean Corpuscular Hemoglobin 25.7 pg (25.0-34.0); Mean Corpuscular Hgb Conc 30.7 g/dL (32.0-36.0); Mean Corpuscular Volume 83.6 fL (80.0-100.0); RDW Coefficient of Variation 20.2 % (11.5-14.5); RDW Standard Deviation 60.2 fL (36.4-46.3); Red Blood Count 3.78 M/uL (4.20-5.40)
[2024-08-11] MEDS: POTASSIUM CHLORIDE CRTAB 20 MEQ TABCR PO STA (09:53)
[2024-08-11] MEDS: MAGNESIUM SULFATE / D5W 1 GM/100 ML BAG IV ONE (09:53)
[2024-08-11] MEDS: FUROSEMIDE 20 MG TAB PO ONE (10:59)
--- NOTE | 2024-08-11 16:56 | Discharge Summary ---
Discharge Summary Date of Service August 11, 2024 Principal Dx & Hospital Course #1 = Principal Diagnosis (1) Human metapneumovirus (hMPV) pneumonia: 83-year-old female with PMH of atrial fibrillation (on Eliquis), CHF, LBBB, CKD stage III, HTN, GERD, anxiety, rheumatoid arthritis, HOCM, diverticulitis, and IBS presented for SOB, cough, congestion, sore throat, intermittent fevers at home accompanied by weakness x 1 week. No O2 use at baseline but uses CPAP HS and required supplemental O2 to maintain sats intially with nasal cannula [employer] POSITIVE hMPV Isolation precautions Pulmonary toilet with nebs (xopenex given afib hx), lidocaine patch, cough syrup, mucinex and incentive spirometer Immunosuppressed on methotrexate and placed on Cefepime IV for PNA coverage which was dc as repeat CXR not noting but procal then checked 0.53 and was resu med with improvement in symptoms however notable admission last year w/ sinusitis and reported all nasal congestion and planning to complete course with cefdinir at discharge. 92% on RA Did have episode of afib/flutter following tramadol/ativan which was dc and cards consulted but remained without further episode and stayed sinus on monitor Of note, did give small lasix 20mg PO with 1gm Mag on day of discharge with 40meq Kcl given afib hx and flutter earlier in the stay. Volume status appearing acceptable/BNP less than prior admission. Chronic nausea/zofran PO use at baseline and was resumed PO. Notable was also given phenergan and hx w/ issues for serotonin antagonist but on zofran and baseline and likely should be avoided in future unless able to identify what the allergy was as noted was given AM 1/10 and had reported feeling better but then nausea in afternoon. (2) Chest pain: Reported 1/5 with pale/diaphoretic, SOB/hypotension with midsternal CP. Converted to NSR around 1900, acute on crhnoic diastolic HF, hx HOCM Cardiology was consulted and EKG w/ aflutter w/ chronic LBBB and ST abn similar to prior. Troponin peaked at 47.5, trended down following and no further episodes Did resume ativan low dose HS as takes in evening w/ anxiety and tolerating well. Has rx for TID but usually only takes once in evening. Cannot r/o anxiety underling as well as wanting to be home with but need for rehab for above prior to returning to [facility] and carring for him Cautious use AV anton yasmeen due to HOCM, prior decreased metoprolol from BID to once daily when inpatient in . No med changes rec by cardiology and can f/u at dc Continued home meds: amiodarone, metoprolol, eliquis, asa+ (3) Iron deficiency: checked iron studies given chronic anemia and her afib. TSH elevated but normal T4/T3 iron studies w/ low iron/trans % sat --> provided 3 doses of Venofer 300mg IV, can consider PO supplementation at dc if no issues with constiaption as was backed up but now reported diarrhea 08/10 (resolved today) No bleeding reported (4) Rheumatoid arthritis: Continued folic acid In the setting of acute infection, held methotrexate on Sunday 08/06 --> continued abx at dc above and can hold for Wednesday upcoming but think reasonable to resume if desired. Outpt f/u (5) Thrombocytopenia: Thrombocytopenia appears to be chronic Continue Aspirin for now - hold Aspirin if platelet count drops <90 Continue Eliquis for now hold Eliquis if platelet count drops <50 ( Plt stable , prior peripheral smear negative PCP f/u (6) Atrial flutter with rapid ventricular response: noted earlier in the stay, cards consulted and back in NSR. Continued telemetry/electrolyte replacement as needed, mag/K replacement to keep closer to 2/4 given arrhythmias and remained on metoprolol/amio/eliquis BID No further episodes as above Plan discharge to [facility] this evening planned prior to returning to [place] with Notes For Next Care Provider Consider PO iron replacement vs IV, did get 600mg IV Venofer prior to dc Monitor for diarrhea on abx, KUB was mild constipation and abd softer since moving bowels but given abx should check for cdiff if occurs Would clarify allergy to serotonin 5HT-3 antagonist as was given Phenergan fairly frequently rather than her home zofran which was resumed prior to dc Consider GI ref if becomes agreeable, could also order pepcid HS to see if helps Methotrexate on hold given infection however can consider resuming this upcoming wednesday to prevent issues with her RA Consider changing mucinex prn to daily scheduled to help with sinus congestion if not taking regularly Medication Changes From Visit Cefdinir 300mg PO BID x 2 more days for sinusitis Admission HPI Per Admitting Provider Vane is an 83-year-old female with PMH of atrial fibrillation (on Eliquis), CHF, LBBB, CKD stage III, HTN, GERD, anxiety, rheumatoid arthritis, HOCM, diverticulitis, and IBS. She presented via EMS on 08/04 for SOB, productive cough, congestion, sore throat, intermittent fever, and weakness x 1 week. She reports her fever has been up to 102 F at [facility]. Her productive cough has been bringing up "brownish-orange globs". She has been taking Tylenol as needed for fever at home, and ibuprofen as needed for additional symptoms. [facility] manages her medicine at home, but she does report she manages Lipitor, Tylenol, and Zofran on her own. She did take her regular morning medicine today. While she denies pleuritic chest pain, she does report she feels discomfort and chest tightness at time, mainly in her lower anterior rib cage/flanks bilaterally. She denies any history of aspiration events. She is not on supplemental oxygen at baseline or CPAP at night. No history of DVT/PE to her knowledge. She denies smoking or tobacco use. She ambulates with a walker at baseline. In re shameka to her penicillin allergy, she reports that she had been taking penicillin regularly for dental work, but then developed a rash after taking it once. Patient is hypertensive at 144/78 and mildly febrile at 37.7 C at time admission; SpO2 92% on 2L NC. ED course: Cefepime 2000 mg IV ROS: Patient endorses fever, headache, congestion, sore throat, chest pressure, SOB, productive cough, discomfort with deep breaths, and loose stool. Patient denies abdominal pain, nausea, or vomiting. Admission Exam Per Admitting Provider General: no acute distress; non-toxic appearing; frail appearing; cooperative; SpO2 95% on 2L NC HEENT: normocephalic, atraumatic; no scleral icterus; PERRLA w/ EOMs intact; vision intact; hard of hearing Neck: supple; trachea midline Skin: warm, dry without signs of tenting; no cyanosis; no rashes, bruising, lesions, or erythema noted CV: chest wall NTP; RRR; S1/S2 normal; 3/6 ejection murmur auscultated at the second ICS MCL s; bounding pulses intact and symmetric at radial, DP, and PT Lungs: no acute respiratory distress; symmetrical chest wall expansion; clear breath sounds across all lung gooden w/o adventitious sounds; no wheezing ABD: Soft, NTP; BS present; no rebound/guarding; no distention MSK: no tics or fasciculations; no edema noted in the LEs b/l, nonerythematous Neuro: A&Ox3; normal mood and affect; fluent speech; no focal deficits; sensation grossly intact in the LEs b/l Discharge Exam General: 83yo female resting in bed, appears/reports improved from yesterday, ongoing nausea/RN to administer zofran HEENT: head atraumatic, normocephalic, mm slightly dry, trachea midline Resp: diminished in the bases with associated crackles, IMPROVED air entry bilaterally but coughs with deep breathing, lidocaine patch to back reported effective, remains on ROOM AIR CV: RRR, PAC/PVC with 1st degree on monitor, no pitting edema/calf tenderness GI: +BS, soft/slight distension but less distended than yesterday, no overt tenderness/guarding/rebound and reported BM x 3 this morning MSK/Neuro: nonfocal, not confused, answering questions appropriately Psych: AOx3, cooperative but fatigued appearing but improved from yesterday Discharge Plan Discharge Items Patient Disposition: Transfer Inpatient Rehab Fac Reason For Visit: HMPV PNA Discharge Diagnosis: Humanmetapneumovirus infection (viral infection), possible pneumonia vs sinusitis Goals: You have been hospitalized for an acute medical problem. During your stay at [facility], we have made an effort to correct the problem that brought you to the hospital while keeping you as comfortable as possible. Medications were used to bring your condition under control and your discharge instructions will include directions for any medications you should take after leaving the hospital. Please make sure you see your Primary Care Provider as part of your follow up plan. Activity: As commented below Non-emergency contact: Primary Care Provider and [employer] Supervisor Call non-emergency contact if: you have any medication questions, your symptoms worsen, your pain is not controlled, your pain is concerning for you and you have a fever Follow-up/Referrals: Sourav,Rachael C, [employer]IVER [Primary Care Provider] - Devon Juarez MD [Physician] - Diet: Regular, Heart Healthy and Lactose Intolerant Addtl Attending Provider Instructions: You have been hospitalized for fever, sore throat, congestion and productive cough with weakness and need for oxygen to maintain adequate levels on admission. Viral testing was positive for human metapneumovirus and there were concerns for possible pneumonia (but also could be sinus infection as well) and have been treated with antibiotics and are being continued on cefdinir for another 2 days to complete the course. You had some diarrhea but x-ray showed you had mild constipation and have moved your bowels since that time. Please monitor and have stools tested for cdiff if having any repeat/ongoing diarrhea on antibiotics. Please follow up with primary care and cardiology at discharge following rehab prior to returning to the [facility]. Please return to the ER with any worsening shortness of breath, fever, or symptoms concerning for you. Take care! Pending Studies at Discharge: No Stand-Alone Forms: My [facility] Skilled Items Patient informed of condition?: Yes DNR: Yes Discharge Level of Care: Acute rehab Communicable Disease: Yes Discharge Prognosis: Stable Lines: None Urinary Catheter: No Medications and DC Order Prescriptions: New cefdinir 300 mg capsule 300 mg PO BID Qty: 4 0RF Continued atorvastatin 10 mg Tablet 10 mg PO HS aspirin 81 mg Tablet,Delayed Release (Dr/Ec) 81 mg PO QAM acetaminophen [Tylenol Extra Strength] 500 mg Tablet 1,000 mg PO Q8H PRN (Reason: Pain) lorazepam 0.5 mg Tablet 0.5 mg PO TID PRN (Reason: Anxiety) pantoprazole 40 mg Tablet,Delayed Release (Dr/Ec) 40 mg PO QAM cholecalciferol (vitamin D3) [Vitamin D3] 1,000 unit Capsule 1,000 unit PO QAM Calcium 600 + D(3) 600 mg calcium- 200 unit Capsule 2 tab PO QAM fluticasone propionate 50 mcg/actuation [place],Suspension 2 spray INTRANASAL QAM multivitamin Tablet 1 tab PO DAILY amiodarone 200 mg tablet 200 mg PO DAILY metoprolol succinate 25 mg tablet extended release 24 hr 25 mg PO DAILY Eliquis 2.5 mg tablet 2.5 mg PO BID cetirizine 10 mg Tablet 10 mg PO DAILY tramadol 50 mg tablet 50 mg PO Q6H PRN (Reason: Pain) calcium carbonate 500 mg calcium (1,250 mg) Tablet 500 mg PO DAILY ondansetron 4 mg Tablet,Disintegrating 4 mg PO Q8H PRN (Reason: Nausea And Vomiting) melatonin 3 mg Capsule 9 mg PO HS polyethylene glycol 3350 [Miralax] 17 gram Powder In Packet 17 g PO BID Qty: 30 0RF ibuprofen 200 mg Tablet 200 mg PO Q6H PRN (Reason: Pain) folic acid 0.8 mg Capsule 1.2 mg PO 6XWK Rx Instructions: EVERY DAY EXCEPT SUNDAYS guaifenesin 600 mg Tablet Extended Release 12hr 600 mg PO Q12H PRN (Reason: Congestion) Held methotrexate sodium 2.5 mg Tablet 22.5 mg PO Lopez@0900 Qty: 0 0RF Hold Instructions: Resume on 08/20/24. Discharge Orders: Discharge Order (Routine); Ordered 08/11/24 Ordered By: Lauryn Martinez Admission Data Admit Date/Time: 08/04/24 13:18 Attending Provider: Carrillo Castillo Admit Provider: Reza Patel Primary Care Provider: Rachael Benjamin Other Providers: Reza Patel; [facility] Stay Data Consultations 08/04/24 12:17 ED Decision to Admit Stat 08/06/24 10:21 Consult Cardiology Routine 08/06/24 10:23 Consult Cardiology Routine Diagnostic Imagining Performed Chest X-Ray 08/04/24 10:52 XR chest 1V portable CLINICAL HISTORY: Chest pain, nonspecific TECHNIQUE: Single frontal radiograph of the chest was obtained. Comparison: Comparison is made to chest radiograph 04/25/2024 FINDINGS: No lines and tubes are seen. Cardiomegaly is noted. Bilateral lower lung predominant airspace opacities are seen. Likely [id number] left pleural effusion. IMPRESSION: 1. Bilateral lower lung predominant airspace opacities which may represent atelectasis, pneumonia, and/or aspiration. 2. Small moderate left pleural effusion. ACT 112: Negative or not required by law. Electronically signed by: Martell Webster M.D. 08/04/2024 11:29 AM Chest X-Ray 08/08/24 11:29 XR chest 2V PA/lateral CLINICAL HISTORY: f/u hMPV, pneumonia vs atelectasis COMPARISON STUDY: 08/04/2024 FINDINGS: Heart size and pulmonary vasculature are normal. Prior opacity at the right lung base has improved. No pneumonia or pleural effusion seen. Stable scoliosis. IMPRESSION: Improved opacity at the right lung base, resolving pneumonia versus atelectasis. ACT 112: Negative or not required by law. Electronically signed by: Mauricio Broussard M.D. 08/08/2024 1:43 PM Chest X-Ray 08/09/24 10:38 XR chest 1V portable CLINICAL HISTORY: SOB, eval PNA, vtach COMPARISON STUDY: 08/08/2024 FINDINGS: There are mitral valvular calcifications. Heart size and pulmonary vasculature are normal. No consolidation, pleural effusion, or pneumothorax seen. Stable scoliosis. IMPRESSION: No pneumonia seen. ACT 112: Negative or not required by law. Electronically signed by: Mauricio Broussard M.D. 08/09/2024 1:01 PM KUB X-Ray 08/09/24 17:26 Clinical history: Evaluate stool burden One view of the abdomen was obtained Comparison is made to the prior examination dated 12/06/2023 Findings: There is no sign of bowel obstruction. There is mild constipation. No renal or ureteral calculi are seen. No foreign body is evident. There is thoracic and lumbar scoliosis and degenerative disc disease. There is an extensive lumbosacral and iliac fusion Impression: Mild constipation Electronically signed by Medhat Bond 08-09-2024 6:21 PM Discharge Instructions Given to Patient (Per Discharging Provider) You have been hospitalized for fever, sore throat, congestion and productive cough with weakness and need for oxygen to maintain adequate levels on admission. Viral testing was positive for human metapneumovirus and there were concerns for possible pneumonia (but also could be sinus infection as well) and have been treated with antibiotics and are being continued on cefdinir for another 2 days to complete the course. You had some diarrhea but x-ray showed you had mild constipation and have moved your bowels since that time. Please monitor and have stools tested for cdiff if having any repeat/ongoing diarrhea on antibiotics. Please follow up with primary care and cardiology at discharge following rehab prior to returning to the [facility]. Please return to the ER with any worsening shortness of breath, fever, or symptoms concerning for you. Take care! Supervising Physician Co-Signing Physician Notes The patient was not seen by me. The chart was reviewed. Case discussed with JENNY Winkler. Agree with assessment and plan Total Time Total Time Spent Total Time Spent (In Minutes): 45 Coding Level of Care Code 29219 INP/OBS DISCH >30 MIN Diagnoses Human metapneumovirus (hMPV) pneumonia J12.3 Chest pain R07.9 Iron deficiency E61.1 Rheumatoid arthritis M06.9 Thrombocytopenia D69.6 Atrial flutter with rapid ventricular response I48.92
[2024-08-11 17:00] VITALS: BP 110/66; PULSE 61; O2SAT 94
[2024-08-11] MEDS: ONDANSETRON 4 MG OD TAB PO PRN (17:43)
== END 2024-08-11 18:27 | DRG 193 ==
LOC: ED 10:38 → EDINP 13:18 → SUATTDRO 13:18 → 2W 17:07